=== PATIENT | female | born 1940 | race Caucasian/White ===

== ENCOUNTER 2023-03-26 14:52 | Outpatient (OUT) | payer MEDICARE, OTHER, SELFPAY ==
[2023-03-26 15:36] LABS: Basophils Percent Auto 0.8 % (0.2-2.0); Eosinophils Absolute Auto 0.4 10^3/uL (0.0-0.7); Eosinophils Percent Auto 7.5 % (0.9-7.0); Hematocrit 39.7 % (36.0-48.0); Hemoglobin 12.5 g/dL (12.0-16.0); Immature Granulocytes Abs Auto 0.01 10^3/uL (0.00-0.03); Immature Granulocytes Pct Auto 0.2 % (0.0-0.5); Lymphocytes Absolute Auto 1.7 10^3/uL (1.2-3.8); Lymphocytes Percent Auto 34.4 % (20.5-60.0); Mean Corpuscular HGB Conc 31.5 g/dL (29.9-35.2); Mean Corpuscular Hemoglobin 29.8 pg (26.7-34.0); Mean Corpuscular Volume 94.5 fL (81.0-99.0); Mean Platelet Volume 9.8 fL (9.5-13.5); Monocytes Absolute Auto 0.5 10^3/uL (0.3-0.8); Monocytes Percent Auto 10.5 % (1.7-12.0); Neutrophils Absolute Auto 2.3 10^3/uL (1.4-6.5); Neutrophils Percent Auto 46.6 % (43.0-75.0); Platelet Count 251 10^3/uL (150-450); Red Cell Distribution Width 15.7 % (11.0-15.0); White Blood Count 4.9 10^3/uL (4.0-11.0)
[2023-03-26 15:59] LABS: Alanine Aminotransferase 25 U/L (14-59); Albumin Globulin Ratio 0.8; Albumin Level 3.1 g/dL (3.4-5.0); Alkaline Phosphatase 101 U/L (46-116); Aspartate Amino Transferase 30 U/L (15-37); BUN Creatinine Ratio 25.8; Bilirubin Total 0.4 mg/dL (0.2-1.0); Calcium 8.4 mg/dL (8.5-10.1); Carbon Dioxide 20.3 mmol/L (21.0-32.0); Chloride 107 mmol/L (98-107); Estimated GFR (African America >60 (>=60); Estimated GFR (Non-African Ame >60 (>=60); Globulin 3.7 g/dL; Glucose 101 mg/dL (74-106); Potassium 4.3 mmol/L (3.5-5.1); Sodium 137 mmol/L (136-145); Total Protein 6.8 g/dL (6.4-8.2)
[2023-03-26 16:08] LABS: Thyroid Stimulating Hormone 5.456 uIU/mL (0.358-3.740)
== END 2023-03-26 14:53 | disposition home or self-care (01) ==
LOC: LAB 14:58
PROVIDERS: PCP Family Medicine; Visit Provider Family Medicine
DX: E87.6 Hypokalemia (principal); R73.09 Other abnormal glucose
CPT/HCPCS: 36415; 80053; 84443; 85025

== ENCOUNTER 2023-08-13 12:14 | Outpatient (OUT) | payer MEDICARE, OTHER, SELFPAY ==
[2023-08-13 12:40] LABS: Estimated GFR (African America >60 (>=60); Estimated GFR (Non-African Ame >60 (>=60)
== END 2023-08-13 12:15 | disposition home or self-care (01) ==
LOC: LAB 12:14
PROVIDERS: PCP Family Medicine; Visit Provider Otolaryngology
DX: H90.3 Sensorineural hearing loss, bilateral (principal); H93.12 Tinnitus, left ear; H92.02 Otalgia, left ear
CPT/HCPCS: 36415; 82565

== ENCOUNTER 2023-08-31 12:48 | Outpatient (OUT) | payer MEDICARE, OTHER, SELFPAY ==
--- NOTE | 2023-08-31 13:40 | CT_ITS ---
The [address] [address] Patient Name: CECELIA VILLALPANDO MRN: [id number] date: 1940 Sex: F Assigned Patient Location: CT Current Patient Location: Accession/Order Number: [id number] Exam Date: 08/31/2023 13:10 Report Date: 09/02/2023 10:24 At the request of: NICHOLAS HAYES Procedure: CT int auditory canals w con EXAM: CT int auditory canals w con HISTORY: Hearing loss COMPARISON: None. TECHNIQUE: Axial postcontrast CT imaging of the temporal bones was performed with multiplanar reformats. This CT exam was performed using one or more of the following dose reduction techniques: Automated exposure control, adjustment of the MA and/or kV according to patient size, or use of iterative reconstruction technique. FINDINGS: RIGHT SIDE There is a narrowing of soft tissue along the medial aspect of the cartilaginous external auditory canal without interval external auditory canal narrowing. Mastoid air cells are normally aerated. Tympanic membrane has normal appearance. Middle ear cavity is normally aerated. Ossicles appear normal. No bony erosion. No evidence for otosclerosis. Internal auditory canal, cochlea, vestibule, semicircular canals, vestibular and cochlear aqueducts appear normal. Normal appearance of the petrous course of the facial nerve. No evidence of aberrant carotid or jugular dehiscence. LEFT SIDE External auditory canal is clear. Mastoid air cells are normally aerated. Tympanic membrane has normal appearance. Middle ear cavity is normally aerated. Ossicles appear normal. No bony erosion. Noted sclerosis. Internal auditory canal, cochlea, vestibule, semicircular canals, vestibular and cochlear aqueducts appear normal. Normal appearance of the petrous course of the facial nerve. No evidence of aberrant carotid or jugular dehiscence. Additional comments: No substantial soft tissue abnormality visible involving the periauricular soft tissues or visualized portions of the parotid glands. Mild intracranial atherosclerosis. Visualized portions of the intracranial structures are unremarkable. Mild frothy material is present involving the left greater than right maxillary sinus with diffuse mild right maxillary sinus mucosal thickening. Partial opacification of the hypoplastic right sphenoid sinus secondary to frothy secretions. CT/CT int auditory canals w con IMPRESSION: 1. Minimal narrowing of the right external auditory canal secondary to thin web of soft tissue along the cartilaginous external auditory canal medially. There is otherwise grossly unremarkable CT appearance of the bilateral temporal bones. 2. No substantial soft tissue abnormality is seen involving the periauricular soft tissues or visualized portions of the parotid glands. 3. Paranasal sinus disease detailed above. Electronically authenticated by: ADWOA ARMSTRONG Date: 09/02/2023 10:24
== END 2023-08-31 12:49 | disposition home or self-care (01) ==
LOC: CT 12:48
PROVIDERS: PCP Family Medicine; Visit Provider Otolaryngology
DX: H90.3 Sensorineural hearing loss, bilateral (principal)
CPT/HCPCS: 70481; Q9967

== ENCOUNTER 2023-09-22 16:06 | Emergency (ER) | payer MEDICARE, OTHER, SELFPAY ==
[2023-09-22 16:10] VITALS: BP 132/50; PULSE 56; RESP 24; TEMP 36.9; BMI 16.8
[2023-09-22 16:26] VITALS: O2SAT 98
--- NOTE | 2023-09-22 16:30 | XR_ITS ---
The [address] [address] Patient Name: CECELIA VILLALPANDO MRN: [id number] date: 1940 Sex: F Assigned Patient Location: ER Current Patient Location: ER Accession/Order Number: [id number] Exam Date: 09/22/2023 17:00 Report Date: 09/22/2023 17:27 At the request of: MARSHALL ROACH Procedure: XR chest 1V CXR HISTORY: Shortness of breath. COMPARISON: None. TECHNIQUE: 1 view of the chest submitted for review. FINDINGS: Lines and tubes: None Lungs are hyperaerated. No acute infiltrate. No effusion. The cardiac silhouette measures within normal. Pulmonary vascularity is unremarkable. Osseous structures are normal for age. XR/XR chest 1V IMPRESSION: No plain film evidence for acute cardiopulmonary disease. Electronically authenticated by: DAQUAN GUNN Date: 09/22/2023 17:27
--- NOTE | 2023-09-22 16:31 | ED.WEAKNESS1 ---
HPI - Weakness General Chief complaint: Weakness Stated complaint: Weakness Time Seen by Provider: 09/22/23 16:14 Source: patient Mode of arrival: ambulance Limitations: no limitations History of Present Illness HPI Narrative: Patient is an 83-year-old female presents to the emergency department for the evaluation of not feeling well for the last 3 days, she reports ear pain, headache and lack of appetite. She denies chest pain, shortness of breath. She states she has been able to take fluids without difficulty, no vomiting or diarrhea. She reports mild nausea associated with a lack of appetite. No drainage from the ears. She denies nasal congestion or coughing. No medications taken prior to arrival. She arrives from independent living attached to a local residential. She states she has been able to get up and move around without difficulty, she is very hard of hearing. Related Data Previous Rx's Medication Instructions Recorded cephalexin 500 mg capsule 500 mg PO Q8H 10 days #30 caps 09/22/23 ondansetron 4 mg disintegrating 4 mg PO Q6H PRN nausea and 09/22/23 tablet vomiting #12 tabs Allergies Allergy/AdvReac Type Severity Reaction Status Date / Time psyllium [From Metamucil] Allergy Severe Hives Verified 09/22/23 16:18 Review of Systems ROS Constitutional Denies: fever or chills Ears, nose, mouth, and throat Reports: ear pain; Denies: throat pain or nasal congestion Cardiovascular Denies: chest pain Respiratory Denies: shortness of breath or cough Gastrointestinal Reports: nausea; Denies: vomiting or diarrhea Genitourinary Denies: painful urination Musculoskeletal Denies: back pain Integumentary/Breast Denies: rash Neurological Reports: headache Endocrine Denies: excessive urination PFSH PFSH Social History Smoking status: Never smoker Exam Narrative Exam Narrative: Gen.: Awake, alert, in no distress Head: Normocephalic, atraumatic ENT: Moist mucous membranes, left TM is erythematous with a left external canal erythematous Respiratory: No respiratory distress, lungs clear bilaterally Cardio: Regular rate and rhythm Extremities: Moves extremities equally Psych: Normal mood and affect Neuro: No focal neuro deficit Skin: Warm, dry, intact Constitutional Vital Signs, click to edit/add: Last Vital Signs Temp 98.4 F 09/22/23 16:10 Pulse 56 L 09/22/23 16:10 Resp 24 09/22/23 16:10 BP 132/50 09/22/23 16:10 Pulse Ox 98 09/22/23 16:26 Course Vital Signs Vital signs: Vital Signs Temperature 98.4 F 09/22/23 16:10 Pulse Rate 56 L 09/22/23 16:10 Respiratory Rate 24 09/22/23 16:10 Blood Pressure 132/50 09/22/23 16:10 Temperature 98.4 F 09/22/23 16:10 Pulse Rate 56 L 09/22/23 16:10 Respiratory Rate 24 09/22/23 16:10 Blood Pressure 132/50 09/22/23 16:10 Pulse Oximetry 98 09/22/23 16:26 MDM - Weakness MDM Narrative Medical decision making narrative: Patient found to have left otitis media on exam, her vital signs are otherwise stable and she has no other focal medical complaints. I asked the patient if she had any chest pain, shortness of breath, dizziness, lightheadedness, falls or difficulty ambulating multiple times, she denied these. On arrival of her family to the emergency department, they stated that they called 911 for the patient because on arrival to her home, she was unable to stand. Patient's lab studies show she is mildly dehydrated, we were unable to start an IV after multiple sticks so the patient was encouraged to improve her oral hydration at home. She requested a meal tray in the ER, she was able to ambulate at the bedside after being reevaluated by attending physician. She started on antibiotics for otitis media, follow-up with PCP and return to the ER if symptoms change or worsen. Medical Records Attestation: I reviewed the patient's medical records. Lab Data Attestation: I reviewed the patient's lab results. Labs: Lab Results 09/22/23 09/22/23 Range/Units 16:36 16:48 WBC 7.7 (4.0-11.0) 10^3/uL RBC 3.42 L (4.20-5.40) 10^6/uL Hgb 10.4 L (12.0-16.0) g/dL Hct 32.5 L (36.0-48.0) % MCV 95.0 (81.0-99.0) fL MCH 30.4 (26.7-34.0) pg MCHC 32.0 (29.9-35.2) g/dL RDW 13.9 (11.0-15.0) % Plt Count 221 (150-450) 10^3/uL MPV 10.0 (9.5-13.5) fL Neut % (Auto) 65.3 (43.0-75.0) % Lymph % (Auto) 23.3 (20.5-60.0) % [place] % (Auto) 9.2 (1.7-12.0) % Eos % (Auto) 1.4 (0.9-7.0) % Baso % (Auto) 0.5 (0.2-2.0) % Neut # (Auto) 5.0 (1.4-6.5) 10^3/uL Lymph # (Auto) 1.8 (1.2-3.8) 10^3/uL [place] # (Auto) 0.7 (0.3-0.8) 10^3/uL Eos # (Auto) 0.1 (0.0-0.7) 10^3/uL Baso # (Auto) 0.0 (0.0-0.1) 10^3/uL Abs Immat Gran (auto) 0.02 (0.00-0.03) 10^3/uL Imm/Tot Granulo (auto) 0.3 (0.0-0.5) % Sodium 132 L (136-145) mmol/L Potassium 4.0 (3.5-5.1) mmol/L Chloride 102 (98-107) mmol/L Carbon Dioxide 19.4 L (21.0-32.0) mmol/L Anion Gap 14.6 BUN 22.0 H (7.0-18.0) mg/dL Creatinine 0.89 (0.55-1.02) mg/dL Est GFR ( Amer) >60 (>=60) Est GFR (Non-Af Amer) >60 (>=60) BUN/Creatinine Ratio 24.7 Glucose 94 (74-106) mg/dL Calcium 8.8 (8.5-10.1) mg/dL Total Bilirubin 0.7 (0.2-1.0) mg/dL AST 14 L (15-37) U/L ALT 15 (14-59) U/L Alkaline Phosphatase 90 (46-116) U/L Total Protein 6.1 L (6.4-8.2) g/dL Albumin 2.7 L (3.4-5.0) g/dL Globulin 3.4 g/dL Albumin/Globulin Ratio 0.8 SARS-CoV-2 (PCR) Negative (NEGATIVE) Influenza Type A Ag Negative Influenza Type B Ag Negative SARS-CoV-2 RNA (JEANE) Not detected (NOT DETECTE) Imaging Data Chest x-ray: Attestation: I have reviewed the pertinent imaging results. Discharge Plan Discharge Chief Complaint: Weakness Clinical Impression: Acute left otitis media Patient Disposition: Home, Self-Care Time of Disposition Decision: 17:44 Condition: Good Mode of Transportation: Private Vehicle Prescriptions / Home Meds: New cephalexin 500 mg capsule 500 mg PO Q8H 10 Days Qty: 30 0RF ondansetron 4 mg tablet,disintegrating 4 mg PO Q6H PRN (Reason: nausea and vomiting) Qty: 12 0RF Instructions: Ear Infection (ED) Stand Alone Forms: Portal Instructions Referrals: Effie Jackman MD [Primary Care Provider] - 1 week Discharge Date/Time: 09/22/23 18:00
[2023-09-22 16:59] LABS: Basophils Percent Auto 0.5 % (0.2-2.0); Eosinophils Absolute Auto 0.1 10^3/uL (0.0-0.7); Eosinophils Percent Auto 1.4 % (0.9-7.0); Hematocrit 32.5 % (36.0-48.0); Hemoglobin 10.4 g/dL (12.0-16.0); Immature Granulocytes Abs Auto 0.02 10^3/uL (0.00-0.03); Immature Granulocytes Pct Auto 0.3 % (0.0-0.5); Lymphocytes Absolute Auto 1.8 10^3/uL (1.2-3.8); Lymphocytes Percent Auto 23.3 % (20.5-60.0); Mean Corpuscular Hemoglobin 30.4 pg (26.7-34.0); Monocytes Absolute Auto 0.7 10^3/uL (0.3-0.8); Monocytes Percent Auto 9.2 % (1.7-12.0); Neutrophils Percent Auto 65.3 % (43.0-75.0); Platelet Count 221 10^3/uL (150-450); Red Blood Count 3.42 10^6/uL (4.20-5.40); Red Cell Distribution Width 13.9 % (11.0-15.0); White Blood Count 7.7 10^3/uL (4.0-11.0)
[2023-09-22] MEDS: ONDANSETRON 4 MG RAPDIS TABLET SL (17:02)
[2023-09-22] MEDS: ACETAMINOPHEN 325 MG TABLET 650 MG PO (17:02)
[2023-09-22 17:12] LABS: Alanine Aminotransferase 15 U/L (14-59); Albumin Globulin Ratio 0.8; Albumin Level 2.7 g/dL (3.4-5.0); Alkaline Phosphatase 90 U/L (46-116); Anion Gap 14.6; Aspartate Amino Transferase 14 U/L (15-37); BUN Creatinine Ratio 24.7; Bilirubin Total 0.7 mg/dL (0.2-1.0); Calcium 8.8 mg/dL (8.5-10.1); Carbon Dioxide 19.4 mmol/L (21.0-32.0); Chloride 102 mmol/L (98-107); Estimated GFR (African America >60 (>=60); Estimated GFR (Non-African Ame >60 (>=60); Globulin 3.4 g/dL; Glucose 94 mg/dL (74-106); Sodium 132 mmol/L (136-145); Total Protein 6.1 g/dL (6.4-8.2)
--- NOTE | 2023-09-22 17:26 | PC.NURSE ---
MEAL TRAY ORDERED FOR PT AT THIS TIME.,
[2023-09-22 17:28] LABS: Influenza Virus A Antigen Negative; Influenza Virus B Antigen Negative; Internal Control Within Normal Limits; SARS-CoV-2 Ag NEGATIVE (NEGATIVE)
[2023-09-23 10:20] LABS: SARS-CoV-2 NAA NOT DETECTED (NOT DETECTE)
== END 2023-09-22 18:00 | disposition home or self-care (01) ==
PROVIDERS: Physician Assistant; Emergency Provider Emergency Medicine; PCP Family Medicine
DX: H66.92 Otitis media, unspecified, left ear (principal); R53.1 Weakness; R51.9 Headache, unspecified; E86.0 Dehydration
CPT/HCPCS: 36415; 71045; 80053; 85025; 87635; 87804; 87811; 99285

== ENCOUNTER 2023-10-23 13:30 | Outpatient (OUT) | payer MEDICARE, OTHER, SELFPAY ==
--- OUTSIDE RECORDS SUMMARY | 2023-10-23 13:34 | XMS_ITS | CCD ---
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 Name Role Phone PHYSICIAN, DEFAULT Unavailable Unavailable PHYSICIAN, DEFAULT Unavailable Unavailable DANIELLE COFFMAN Unavailable Unavailable JACK PINA Unavailable Unavailable NONSTAFF, [facility] Unavailable Unavailable Jack Sanches DEVELOPMENT EXECUTIVE-C Admitting UnavailJack Pandey DEVELOPMENT EXECUTIVE-C Attending Unavaila Jani Obando Primary Care Unavailable JOSH, DR DARBY Primary Care Unavailable SHAIKH Joshua MARTINEZ Admitting Unavailable SHAIKH Joshua MARTINEZ Attending Unavailable CHARLIE, DR ELEAZAR Gr Consulting Unavailable YOLANDA Decker, ESME Consulting Unavailable SHAIKH Joshua MARTINEZ Consulting Unavailable BRINA HENRY Consulting Unavailable JOSH, DR DARBY Admitting Unavailable JOSH, DR DARBY Attending Unavailable JOSH, DR DARBY Primary Care Unavailable JOSH, DR DARBY Consulting Unavailable MATI ATKINS Consulting Unavailable JOSH, DR DARBY Primary Care Unavailable PAY ., DR BAEZA Consulting Unavailable PAY ., DR BAEZA Admitting Unavailable PAY ., DR BAEZA Attending Unavailable KAROL VARELA Consulting Unavailable JOSH, DR DARBY Primary Care Unavailable MANUEL ., DR NIETO Consulting Unavailable JOEY ., DR NIETO Admitting Unavailable HOY ., DR NIETO Attending Unavailable CHARLIE, DR ELEAZAR Gr Consulting Unavailable DOC ., LELIA OLIVARES Consulting Unavailajay GUERRERO ., ESME Consulting Unavailable TRINI CISNEROS Consulting Unavailable SIVA CROSS Consulting Unavailable MALIK CROSS Consulting Unavailable TEJAS SIDDIQUI Consulting Unavailable Effie Jackman Unavailable MICHAELA RICHARDSON Attending Unavailable NICHOLAS HAYES Attending Unavailable Allergies Allergy Classification Reported Allergen(s) Allergy Type Date of Onset Reaction(s) Facility (2 sources) levoFLOXacin; Translations: [LEVOFLOXACIN] Drug Allergy 08-07-2017 [facility] (2 sources) psyllium; Translations: [PSYLLIUM] Drug Allergy 08-07-2017 [facility] (10 sources) levoFLOXacin Drug Allergy 02-05-2016 hives [facility] (1 source) Penicillin Drug Allergy [facility] (10 sources) Psyllium Drug Allergy 03-03-2013 anaphylaxis [facility] Medications Current Medications Medication Drug Class(es) Dates Sig (Normalized) Sig (Original) Acetaminophen (9 sources) Acetaminophen Active Albuterol (9 sources) beta2-Adrenergic Agonist Albuterol Sulfate HFA Active amylase 30581 unt / lipase 3000 unt / protease 9500 unt delayed release oral capsule (9 sources) take 1829-7774 [IU] by mouth three times daily at mealtime Creon 7581-1212 UNIT as directed Orally tid w meals for 30 days Active 30 actuat fluticasone furoate 0.1 mg/actuat / vilanterol 0.025 mg/actuat dry powder inhaler (9 sources) Corticosteroid, beta2-Adrenergic Agonist Start: 03-27-2023 take 1 puff(s) by inhalation once daily Breo Ellipta 100-25 MCG/ACT 1 puff Inhalation Once a day for 30 days Feb, Active pantoprazole 40 mg delayed release oral tablet (3 sources) Proton Pump Inhibitor take 1 tablet by mouth every twenty-four hours Pantoprazole Sodium 40 MG 1 tablet Orally Once a day Active rOPINIRole 0.25 mg oral tablet (6 sources) Nonergot Dopamine Agonist take 1 tablet by mouth once daily at bedtime rOPINIRole HCl 0.25 MG 1 tablet 1 to 3 hours before bedtime Orally Once a day for 30 days Active Problems Active Problems Problem Classification Problem Date Documented Da te Episodic/Chronic Abdominal hernia (9 sources) Hiatal hernia; Translations: [Diaphragmatic hernia without obstruction or gangrene] Episodic Abdominal pain (18 sources) Epigastric pain; Translations: [Epigastric pain] Episodic Asthma (20 sources) Unspecified asthma with (acute) exacerbation; Translations: [Exacerbation of asthma] Onset: 02-18-2022 Chronic Attention-deficit, conduct, and disruptive behavior disorders (3 sources) Other symptoms and signs involving appearance and behavior Episodic Blindness and vision defects (1 source) Unspecified visual loss; Translations: [UNSPECIFIED VISUAL LOSS] Onset: 12-31-2022 Chronic Cardiac dysrhythmias (1 source) Unspecified atrial fibrillation; Translations: [UNSPECIFIED ATRIAL FIBRILLATION] Onset: 12-31-2022 Chronic Chronic obstructive pulmonary disease and bronchiectasis (5 sources) Chronic obstructive pulmonary disease with (acute) exacerbation; Translations: [Chronic obstructive pulmonary disease with (acute) lower respiratory infection] Onset: 12-29-2022 Chronic Complications of surgical procedures or medical care (1 source) Postgastric surgery syndromes; Translations: [POSTGASTRIC SURGERY SYNDROMES] Onset: 12-31-2022 Episodic Congestive heart failure; nonhypertensive (1 source) Heart failure, unspecified; Translations: [HEART FAILURE UNSPECIFIED] Onset: 12-29-2022 Chronic Delirium, dementia, and amnestic and other cognitive disorders (2 sources) Unspecified dementia without behavioral disturbance; Translations: [UNSP DARELL UNS SEV W/O DSTRB ANXTY] Onset: 02-18-2022 Chronic Esophageal disorders (1 source) Gastro-esophageal reflux disease without esophagitis; Translations: [GERD WITHOUT ESOPHAGITIS] Onset: 12-31-2022 Chronic Fluid and electrolyte disorders (3 sources) Dehydration; Translations: [Hypokalemia] Onset: 02-18-2022 Episodic Gastritis and duodenitis (9 sources) Gastritis; Translations: [Gastritis, unspecified, without bleeding] Episodic Malaise and fatigue (1 source) Weakness; Translations: [WEAKNESS] Onset: 12-31-2022 Episodic Menopausal disorders (4 sources) Other primary ovarian failure; Translations: [OTHER PRIMARY OVARIAN FAILURE] Onset: 07-10-2022 Chronic Nausea and vomiting (9 sources) Nausea; Translations: [Nausea] Episodic Noninfectious gastroenteritis (1 source) Noninfective gastroenteritis and colitis, unspecified Episodic Nutritional deficiencies (1 source) Moderate protein-calorie malnutrition; Translations: [MODERATE PROTEIN-CALORIE MLNUTRIT] Onset: 12-31-2022 Chronic Osteoarthritis (1 source) Unspecified osteoarthritis, unspecified site; Translations: [UNSPECIFIED OSTEOARTHRITIS UNS SITE] Onset: 12-31-2022 Chronic Osteoporosis (1 source) Age-related osteoporosis without current pathological fracture; Translations: [AGE-REL OSTEOPOR W/O CURR PATH FX] Onset: 12-31-2022 Chronic Other aftercare (1 source) 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; Translations: [OTH 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 PLANT OPERATOR CURRENT DRUG THERAPY] Onset: 12-31-2022 Episodic Other connective tissue disease (9 sources) Myofascial pain; Translations: [Myalgia] Episodic Other ear and sense organ disorders (8 sources) Bilateral hearing loss; Translations: [Unspecified hearing loss, bilateral] Chronic Other gastrointestinal disorders (9 sources) Diarrhea; Translations: [Diarrhea, unspecified] Episodic Other hereditary and degenerative nervous system conditions (6 sources) Restless legs; Translations: [Restless legs syndrome] Chronic Other hereditary and degenerative nervous system conditions (1 source) Restless legs syndrome Chronic Other lower respiratory disease (9 sources) Dyspnea; Translations: [Shortness of breath] Episodic Other nervous system disorders (9 sources) Chronic pain; Translations: [Other chronic pain] Chronic Other nervous system disorders (1 source) Unsteadiness on feet; Translations: [UNSTEADINESS ON FEET] Onset: 12-31-2022 Episodic Other nervous system disorders (2 sources) Other symptoms and signs involving cognitive functions and awareness Episodic Other nutritional; endocrine; and metabolic disorders (1 source) Body mass index (BMI) 19.9 or less, adult; Translations: [BODY MASS INDEX 19.9 OR LESS ADULT] Onset: 12-31-2022 Episodic Other nutritional; endocrine; and metabolic disorders (2 sources) Abnormal weight loss Episodic Pneumonia (except that caused by tuberculosis or sexually transmitted disease) (3 sources) Pneumonia, unspecified organism; Translations: [PNEUMONIA UNSPECIFIED ORGANISM] Onset: 12-22-2022 Episodic Residual codes; unclassified (1 source) Sleep disorder, unspecified; Translations: [SLEEP DISORDER UNSPECIFIED] Onset: 12-31-2022 Episodic Spondylosis; intervertebral disc disorders; other back problems (9 sources) Thoracic back pain; Translations: [Pain in thoracic spine] Episodic Substance-related disorders (9 sources) Continuous opioid dependence; Translations: [Opioid use, unspecified, uncomplicated] Episodic Unclassified (1 source) Unspecified fracture of upper end of right humerus, initial encounter for closed fracture / S42.201A(ICD-10) Onset: 08-21-2017 Unclassified (1 source) Unknown / UNK(Unknown) Onset: 08-21-2017 Unclassified (1 source) Fall / 10590() Onset: 08-21-2017 Unclassified (1 source) Arm Injury / 58501() Onset: 08-21-2017 Unclassified (1 source) R06.02 - Shortness of breath; Translations: [R06.02 - Shortness of breath] Onset: 01-15-2019 Unclassified (1 source) CONTACT W/AND (SUSP) EXPOS COVID-19; Translations: [CONTACT W/AND (SUSP) EXPOS COVID-19] Onset: 12-31-2022 Urinary tract infections (1 source) Urinary tract infection, site not specified; Translations: [UTI SITE NOT SPECIFIED] Onset: 12-31-2022 Episodic Past or Other Problems Problem Classification Problem Date Documented Da te Episodic/Chronic Administrative/social admission (1 source) Encounter for issue of repeat prescription; Translations: [ENC FOR ISSUE REPEAT PRESCRIPTION] Onset: 02-18-2022 Episodic External Injury - Fall (1 source) Fall; Translations: [Fall] Onset: 08-21-2017 Other bone disease and musculoskeletal deformities (1 source) Other specified disorders of bone density and structure, other site; Translations: [OTH D/O BONE DEN STRUCT OTH SITE] Onset: 07-12-2022 Episodic Other lower respiratory disease (3 sources) Shortness of breath; Translations: [SHORTNESS OF BREATH] Onset: 02-14-2022 Episodic Other lower respiratory disease (1 source) Dyspnea, unspecified; Translations: [DYSPNEA UNSPECIFIED] Onset: 02-18-2022 Episodic Unclassified (1 source) Unspecified fracture of upper end of right humerus, initial encounter for closed fracture; Translations: [Unspecified fracture of upper end of right humerus, initial encounter for closed fracture] Onset: 08-21-2017 Unclassified (1 source) fall, arm injury Onset: 08-21-2017 Unclassified (1 source) Arm Injury; Translations: [Arm Injury] Onset: 08-21-2017 Results Test Name Value Interpretation Reference Range Facility CULTURE URINEon 01-02-2023 CULTURE URINE Isolate 1 Enterococcus faecalis 100,000 cfu/mL of ORGANISM 1 Enterococcus faecalis ANTIBIOTIC M.I.C RX STATUS Beta-Lactamase Neg NEG F Benzylpenicillin 1 S F Ampicillin <=2 S F Gentamicin High Level (synergy) SYN-S S F Streptomycin High Level (synergy) SYN-S S F Ciprofloxacin <=0.5 S F Levofloxacin 0.5 S F Quinupristin/Dalfopris tin 8 R F Linezolid 1 S F Vancomycin 1 S F Tetracycline >=16 R F Nitrofurantoin <=16 S F Normal [facility] Comment on above: Performed By: #### C BC #### [facility] [address] [place] [address] Dr. Con Santana BNPon 01-01-2023 Natriuretic peptide B (Bld) [Mass/Vol] 6147.0 pg/mL Critically high <=1,800.0 [facility] Comment on above: Performed By: #### H STROPN #### [facility] [address] [place] [address] Dr. Con Santana CBC AUTO DIFFon 01-01-2023 BASO # 0.0 103/ul Normal 0.0-0.1 [facility] Comment on above: Performed By: #### C BC #### [facility] [address] [place] [address] Dr. Con Santana Basophils/100 WBC (Bld) 0.2 % Normal 0.2-2.0 [facility] Comment on above: Performed By: #### C BC #### [facility] [address] [place] [address] Dr. Con Santana EO # 0.0 103/ul Normal 0.0-0.7 [facility] Comment on above: Performed By: #### C BC #### [facility] [address] [place] [address] Dr. Con Santana Eosinophils/100 WBC (Bld) 0.0 % Critically low 0.9-7.0 [facility] Comment on above: Performed By: #### C BC #### [facility] [address] [place] [address] Dr. Con Santana Erythrocyte distribution width (RBC) [Ratio] 14.4 % Normal 11.0-15.0 [facility] Comment on above: Performed By: #### C BC #### [facility] [address] [place] [address] Dr. Con Santana Hematocrit (Bld) [Volume fraction] 28.5 % Critically low 36.0-48.0 [facility] Comment on above: Performed By: #### C BC #### [facility] [address] [address] [address] Con Santana Hemoglobin (Bld) [Mass/Vol] 9.1 g/dL Critically low 12.0-16.0 [facility] Comment on above: Performed By: #### C BC #### [facility] [address] [address] [address] Con Santana IG # 0.14 10e3/ul Critically high 0.00-0.03 [facility] Comment on above: Performed By: #### C BC #### [facility] [address] [address] [address] Con Santana IG % 1.1 % Critically high 0.0-0.5 [facility] Comment on above: Performed By: #### C BC #### [facility] [address] [address] [address] Con Santana LYMPH # 0.9 103/ul Critically low 1.2-3.8 [facility] Comment on above: Performed By: #### C BC #### [facility] [address] [address] [address] Con Santana Lymphocytes/100 WBC (Bld) 7.3 % Critically low 20.5-60.0 [facility] Comment on above: Performed By: #### C BC #### [facility] [address] [address] [address] Con Santana MANUAL DIFF REQ NO Normal [facility] Comment on above: Performed By: #### C BC #### [facility] [address] [address] [address] Con Santana MCH (RBC) [Entitic mass] 31.1 pg Normal 26.7-34.0 [facility] Comment on above: Performed By: #### C BC #### [facility] [address] [address] [address] Con Santana MCHC (RBC) [Mass/Vol] 31.9 g/dL Normal 29.9-35.2 [facility] Comment on above: Performed By: #### C BC #### [facility] [id number] Con Santana MCV (RBC) [Entitic vol] 97.3 fL Normal 81.0-99.0 [facility] Comment on above: Performed By: #### C BC #### [facility] [address] [address] [address] Con Santana MONO # 1.3 103/ul Critically high 0.3-0.8 [facility] Comment on above: Performed By: #### C BC #### [facility] [address] [address] [address] Con Santana Monocytes/100 WBC (Bld) 10.0 % Normal 1.7-12.0 [facility] Comment on above: Performed By: #### C BC #### [facility] [address] [address] [address] Con Santana NEUT # 10.5 103/ul Critically high 1.4-6.5 [facility] Comment on above: Performed By: #### C BC #### [facility] [address] [address] [address] Con Santana Neutrophils/100 WBC (Bld) 81.4 % Critically high 43.0-75.0 [facility] Comment on above: Performed By: #### C BC #### [facility] [address] [address] [address] Con Santana Platelet mean volume (Bld) [Entitic vol] 10.5 fL Normal 9.5-13.5 [facility] Comment on above: Performed By: #### C BC #### [facility] [address] [address] [address] Con Santana PLT 179 103/ul Normal 150-450 [facility] Comment on above: Performed By: #### C BC #### [facility] [id number] Con Santana RBC 2.93 106/ul Critically low 4.20-5.40 [facility] Comment on above: Performed By: #### C BC #### [facility] [address] [address] [address] Con Santana WBC 12.8 103/ul Critically high 4.0-11.0 [facility] Comment on above: Performed By: #### C BC #### [facility] [address] [address] [address] Con Santana POINT OF CARE GLUCOSEon 04 Glucose [Mass/Vol] 97 mg/dL Normal 74-106 [facility] Comment on above: Performed By: #### C BC #### [facility] [address] [address] [address] Con Santana PROF CHEM 8 (BAS METB)on Anion gap [Moles/Vol] 14.3 mmol/L Normal [facility] Comment on above: Performed By: #### H STROPN #### [facility] [address] [place] [address] Dr. Con Santana Calcium [Mass/Vol] 7.2 mg/dL Critically low 8.5-10.1 [facility] Comment on above: Performed By: #### H STROPN #### [facility] [address] [place] [address] Dr. Con Santana Chloride [Moles/Vol] 108 mmol/L Critically high 98-107 [facility] Comment on above: Performed By: #### H STROPN #### [facility] [address] [address] [address] Con Santana CO2 [Moles/Vol] 22.6 mmol/L Normal 21.0-32.0 [facility] Comment on above: Performed By: #### H STROPN #### [facility] [address] [address] [address] Con Santana Creatinine [Mass/Vol] 1.08 mg/dL Critically high 0.55-1.02 [facility] Comment on above: Performed By: #### H STROPN #### [facility] [address] [place] [address] Dr. Con Santana EGFR-AF BOTSWANAN 59 mL/min/1.73m2 Critically low >=60 [facility] Comment on above: Performed By: #### H STROPN #### [facility] [address] [address] [address] Con Santana EGFR-NON AF BOTSWANAN 48 mL/min/1.73m2 Critically low >=60 [facility] Comment on above: Performed By: #### H STROPN #### [facility] [address] [address] [address] Con Santana Glucose [Mass/Vol] 100 mg/dL Normal 74-106 [facility] Comment on above: Performed By: #### H STROPN #### [facility] [address] [address] [address] Con Santana Potassium [Moles/Vol] 3.9 mmol/L Normal 3.5-5.1 [facility] Comment on above: Performed By: #### H STROPN #### [facility] [address] [place] [address] Dr. Con Santana Sodium [Moles/Vol] 141 mmol/L Normal 136-145 [facility] Comment on above: Performed By: #### H STROPN #### [facility] [address] [place] [address] Dr. Con Santana Urea nitrogen [Mass/Vol] 27.0 mg/dL Critically high 7.0-18.0 [facility] Comment on above: Performed By: #### H STROPN #### [facility] [address] [place] [address] Dr. Con Santana Urea nitrogen/Creatinine [Mass ratio] 25.0 mg/mg Normal [facility] Comment on above: Performed By: #### H STROPN #### [facility] [address] [address] [address] Con Santana BNPon 12-31-2022 Natriuretic peptide B (Bld) [Mass/Vol] 7148.0 pg/mL Critically high <=1,800.0 [facility] Comment on above: Performed By: #### H STROPN #### [facility] [address] [place] [address] Dr. Con Santana CBC W MANUAL DIFFon 01-01-20 23 ATYPICAL LYMPH # Normal [facility] Comment on above: Performed By: #### P OCGLUC #### [facility] [address] [place] [address] Dr. Con Santana ATYPICAL LYMPH % Normal [facility] Comment on above: Performed By: #### P OCGLUC #### [facility] [address] [address] [address] Con Santana BAND # 0.0 103/ul Normal 0.0-0.3 [facility] Comment on above: Performed By: #### P OCGLUC #### [facility] [address] [place] [address] Dr. Con Santana BAND % 0 % Normal 0-5 [facility] Comment on above: Performed By: #### P OCGLUC #### [facility] [address] [place] [address] Dr. Con Santana BASOM # 0.00 103/ul Normal 0.00-0.10 [facility] Comment on above: Performed By: #### P OCGLUC #### [facility] [address] [place] [address] Dr. Con Santana BASOM % 0.0 % Critically low 0.2-2.0 [facility] Comment on above: Performed By: #### P OCGLUC #### [facility] [address] [place] [address] Dr. Con Santana BLAST # Normal [facility] Comment on above: Performed By: #### P OCGLUC #### [facility] [address] [place] [address] Dr. Con Santana BLAST % Normal [facility] Comment on above: Performed By: #### P OCGLUC #### [facility] [address] [place] [address] Dr. Con Santana CORRECTED WBC Normal 4.0-11.0 [facility] Comment on above: Performed By: #### P OCGLUC #### [facility] [address] [place] [address] Dr. Con Santana EOS # 0.00 103/ul Normal 0.00-0.70 [facility] Comment on above: Performed By: #### P OCGLUC #### [facility] [address] [address] [address] Con Santana EOS% 0.0 % Critically low 0.9-7.0 [facility] Comment on above: Performed By: #### P OCGLUC #### [facility] [address] [address] [address] Con Santana HCT 27.8 % Critically low 36.0-48.0 [facility] Comment on above: Performed By: #### P OCGLUC #### [facility] [address] [address] [address] Con Santana HGB 9.0 g/dl Critically low 12.0-16.0 [facility] Comment on above: Performed By: #### P OCGLUC #### [facility] [address] [address] [address] Con Santana LYMPHM # 0.53 103/ul Critically low 1.20-3.80 [facility] Comment on above: Performed By: #### P OCGLUC #### [facility] [address] [address] [address] Con Santana LYMPHM% 5.0 % Critically low 20.5-60.0 [facility] Comment on above: Performed By: #### P OCGLUC #### [facility] [address] [address] [address] Con Santana MCH 31.0 pg Normal 26.7-34.0 [facility] Comment on above: Performed By: #### P OCGLUC #### [facility] [address] [address] [address] Con Santana MCHC 32.4 g/dl Normal 29.9-35.2 [facility] Comment on above: Performed By: #### P OCGLUC #### [facility] [address] [address] [address] Con Santana MCV 95.9 fL Normal 81.0-99.0 [facility] Comment on above: Performed By: #### P OCGLUC #### [facility] [address] [address] [address] Con Santana METAMYELOCYTE # Normal [facility] Comment on above: Performed By: #### P OCGLUC #### [facility] [address] [address] [address] Con Santana METAMYELOCYTE % Normal [facility] Comment on above: Performed By: #### P OCGLUC #### [facility] [address] [address] [address] Con Santana MONOM# 0.11 103/ul Critically low 0.30-0.80 [facility] Comment on above: Performed By: #### P OCGLUC #### [facility] [address] [place] [address] Dr. Con Santana MONOM% 1.0 % Critically low 1.7-12.0 [facility] Comment on above: Performed By: #### P OCGLUC #### [facility] [address] [place] [address] Dr. Con Santana MPV 10.9 fL Normal 9.5-13.5 [facility] Comment on above: Performed By: #### P OCGLUC #### [facility] [address] [place] [address] Dr. Con Santana MYELOCYTE # Normal [facility] Comment on above: Performed By: #### P OCGLUC #### [facility] [address] [place] [address] Dr. Con Santana MYELOCYTE % Normal [facility] Comment on above: Performed By: #### P OCGLUC #### [facility] [address] [place] [address] Dr. Con Santana NRBC Normal [facility] Comment on above: Performed By: #### P OCGLUC #### [facility] [address] [place] [address] Dr. Con Santana PLT 184 103/ul Normal 150-450 [facility] Comment on above: Performed By: #### P OCGLUC #### [facility] [address] [place] [address] Dr. Con Santana RBC 2.90 106/ul Critically low 4.20-5.40 [facility] Comment on above: Performed By: #### P OCGLUC #### [facility] [address] [address] [address] Con Santana RDW 14.5 % Normal 11.0-15.0 [facility] Comment on above: Performed By: #### P OCGLUC #### [facility] [address] [address] [address] Con Santana SEG # 9.96 103/ul Critically high 1.40-6.50 [facility] Comment on above: Performed By: #### P OCGLUC #### [facility] [address] [address] [address] Con Santana SEG % 94.0 % Critically high 43.0-75.0 [facility] Comment on above: Performed By: #### P OCGLUC #### [facility] [address] [address] [address] Con Santana WBC 10.6 103/ul Normal 4.0-11.0 [facility] Comment on above: Performed By: #### P OCGLUC #### [facility] [address] [place] [address] Dr. Con Santana POINT OF CARE GLUCOSEon 04-0 Glucose [Mass/Vol] 145 mg/dL Critically high 74-106 [facility] Comment on above: Performed By: #### I NFLUAB #### [facility] [address] [place] [address] Dr. Con Snatana Glucose [Mass/Vol] 162 mg/dL Critically high 74-106 [facility] Comment on above: Performed By: #### LISA INTERIANO #### [facility] [address] [address] [address] Con Santana Glucose [Mass/Vol] 141 mg/dL Critically high 74-106 [facility] Comment on above: Performed By: #### C BC #### [facility] [address] [address] [address] Con Santana PROF CHEM 8 (BAS METB)on Anion gap [Moles/Vol] 16.5 mmol/L Normal [facility] Comment on above: Performed By: #### H STROPN #### [facility] [address] [address] [address] Con Santana Calcium [Mass/Vol] 7.3 mg/dL Critically low 8.5-10.1 Th [facility] Comment on above: Performed By: #### H STROPN #### [facility] [address] [address] [address] Con Santana Chloride [Moles/Vol] 108 mmol/L Critically high 98-107 [facility] Comment on above: Performed By: #### H STROPN #### [facility] [address] [address] [address] Con Santana CO2 [Moles/Vol] 18.5 mmol/L Critically low 21.0-32.0 [facility] Comment on above: Performed By: #### H STROPN #### [facility] [address] [address] [address] Con Santana Creatinine [Mass/Vol] 1.14 mg/dL Critically high 0.55-1.02 [facility] Comment on above: Performed By: #### H STROPN #### [facility] [address] [address] [address] Con Santana EGFR-AF BOTSWANAN 55 mL/min/1.73m2 Critically low >=60 [facility] Comment on above: Performed By: #### H STROPN #### [facility] [address] [address] [address] Con Santana EGFR-NON AF BOTSWANAN 45 mL/min/1.73m2 Critically low >=60 [facility] Comment on above: Performed By: #### H STROPN #### [facility] [address] [address] [address] Con Santana Glucose [Mass/Vol] 151 mg/dL Critically high 74-106 [facility] Comment on above: Performed By: #### H STROPN #### [facility] [address] [address] [address] Con Santana Potassium [Moles/Vol] 4.0 mmol/L Normal 3.5-5.1 [facility] Comment on above: Performed By: #### H STROPN #### [facility] [address] [address] [address] Con Santana Sodium [Moles/Vol] 139 mmol/L Normal 136-145 [facility] Comment on above: Performed By: #### H STROPN #### [facility] [address] [address] [address] Con Santana Urea nitrogen [Mass/Vol] 27.0 mg/dL Critically high 7.0-18.0 [facility] Comment on above: Performed By: #### H STROPN #### [facility] [address] [address] [address] Con Santana Urea nitrogen/Creatinine [Mass ratio] 23.7 mg/mg Normal [facility] Comment on above: Performed By: #### H STROPN #### [facility] [address] [address] [address] Con Santana XR CHEST 2 Von 12-31-2022 XR CHEST 2 V EXAMINATION: XR CHES T 2 V HISTORY: shortness of breath or wheezing , cough COMPARISON: XR chest 12/30/2022 FINDINGS: LUNGS: Hyperexpanded lungs. No appreciable infiltrates or mass. VASCULATURE: No increased pulmonary vasculature. PLEURA: No pneumothorax, effusion, or pleural thickening. CARDIAC: No cardiomegaly or cardiac silhouette abnormality. MEDIASTINUM: No visible mass or adenopathy. BONES: No fracture or visible bone lesion. OTHER: Negative. IMPRESSION: 1. Hyperexpanded lungs suggestive of COPD. 2. No appreciable acute cardiopulmonary process. Electronically authenticated by: ELEAZAR GUERRA Date: 2022-12-31 11:27 Normal [facility] BNPon 12-30-2022 Natriuretic peptide B (Bld) [Mass/Vol] 7840.0 pg/mL Critically high <=1,800.0 [facility] Comment on above: Performed By: #### I NFLUAB #### [facility] [address] [address] [address] Con Santana CBC AUTO DIFFon 12-30-2022 BASO # 0.0 103/ul Normal 0.0-0.1 [facility] Comment on above: Performed By: #### P OCGLUC #### [facility] [address] [address] [address] Con Santana Basophils/100 WBC (Bld) 0.2 % Normal 0.2-2.0 [facility] Comment on above: Performed By: #### P OCGLUC #### [facility] [address] [place] [address] Dr. Con Santana EO # 0.0 103/ul Normal 0.0-0.7 [facility] Comment on above: Performed By: #### P OCGLUC #### [facility] [address] [place] [address] Dr. Con Santana Eosinophils/100 WBC (Bld) 0.0 % Critically low 0.9-7.0 [facility] Comment on above: Performed By: #### P OCGLUC #### [facility] [address] [place] [address] Dr. Con Santana Erythrocyte distribution width (RBC) [Ratio] 13.6 % Normal 11.0-15.0 [facility] Comment on above: Performed By: #### P OCGLUC #### [facility] [address] [place] [address] Dr. Con Santana Hematocrit (Bld) [Volume fraction] 28.5 % Critically low 36.0-48.0 [facility] Comment on above: Performed By: #### P OCGLUC #### [facility] [address] [place] [address] Dr. Con Santana Hemoglobin (Bld) [Mass/Vol] 9.5 g/dL Critically low 12.0-16.0 [facility] Comment on above: Performed By: #### P OCGLUC #### [facility] [address] [place] [address] Dr. Con Santana IG # 0.09 10e3/ul Critically high 0.00-0.03 [facility] Comment on above: Performed By: #### P OCGLUC #### [facility] [address] [address] [address] Con Santana IG % 0.8 % Critically high 0.0-0.5 [facility] Comment on above: Performed By: #### P OCGLUC #### [facility] [address] [address] [address] Con Santana LYMPH # 0.8 103/ul Critically low 1.2-3.8 [facility] Comment on above: Performed By: #### P OCGLUC #### [facility] [address] [address] [address] Con Santana Lymphocytes/100 WBC (Bld) 6.9 % Critically low 20.5-60.0 [facility] Comment on above: Performed By: #### P OCGLUC #### [facility] [address] [address] [address] Con Santana MANUAL DIFF REQ NO Normal [facility] Comment on above: Performed By: #### P OCGLUC #### [facility] [address] [address] [address] Con Santana MCH (RBC) [Entitic mass] 31.3 pg Normal 26.7-34.0 [facility] Comment on above: Performed By: #### P OCGLUC #### [facility] [address] [address] [address] Con Santana MCHC (RBC) [Mass/Vol] 33.3 g/dL Normal 29.9-35.2 [facility] Comment on above: Performed By: #### P OCGLUC #### [facility] [address] [address] [address] Con Santana MCV (RBC) [Entitic vol] 93.8 fL Normal 81.0-99.0 [facility] Comment on above: Performed By: #### P OCGLUC #### [facility] [address] [address] [address] Con Santana MONO # 0.4 103/ul Normal 0.3-0.8 [facility] Comment on above: Performed By: #### P OCGLUC #### [facility] [address] [address] [address] Con Santana Monocytes/100 WBC (Bld) 3.1 % Normal 1.7-12.0 [facility] Comment on above: Performed By: #### P OCGLUC #### [facility] [address] [address] [address] Con Santana NEUT # 10.4 103/ul Critically high 1.4-6.5 [facility] Comment on above: Performed By: #### P OCGLUC #### [facility] [address] [address] [address] Con Santana Neutrophils/100 WBC (Bld) 89.0 % Critically high 43.0-75.0 [facility] Comment on above: Performed By: #### P OCGLUC #### [facility] [address] [address] [address] Con Santana Platelet mean volume (Bld) [Entitic vol] 10.8 fL Normal 9.5-13.5 [facility] Comment on above: Performed By: #### P OCGLUC #### [facility] [address] [address] [address] Con Santana PLT 189 103/ul Normal 150-450 [facility] Comment on above: Performed By: #### P OCGLUC #### [facility] [address] [address] [address] Con Santana RBC 3.04 106/ul Critically low 4.20-5.40 [facility] Comment on above: Performed By: #### P OCGLUC #### [facility] [address] [address] [address] Con Santana WBC 11.7 103/ul Critically high 4.0-11.0 [facility] Comment on above: Performed By: #### P OCGLUC #### [facility] [address] [address] [address] Con Santana POINT OF CARE GLUCOSEon 04-0 Glucose [Mass/Vol] 194 mg/dL Critically high 74-106 [facility] Comment on above: Performed By: #### C BC #### [facility] [address] [address] [address] Con Santana Glucose [Mass/Vol] 191 mg/dL Critically high 74-106 [facility] Comment on above: Performed By: #### I NFLUAB #### [facility] [address] [address] [address] Con Santana Glucose [Mass/Vol] 169 mg/dL Critically high 74-106 [facility] Comment on above: Performed By: #### P OCGLUC #### [facility] [address] [address] [address] Con Santana Glucose [Mass/Vol] 173 mg/dL Critically high 74-106 [facility] Comment on above: Performed By: #### I NFLUAB #### [facility] [address] [place] [address] Dr. Con Santana PROF CHEM 8 (BAS METB)on Anion gap [Moles/Vol] 18.8 mmol/L [facility] Comment on above: Performed By: #### I NFLUAB #### [facility] [address] [address] [address] Con Santana Calcium [Mass/Vol] 7.3 mg/dL Critically low 8.5-10.1 Th [facility] Comment on above: Performed By: #### I NFLUAB #### [facility] [address] [address] [address] Con Santana Chloride [Moles/Vol] 109 mmol/L Critically high 98-107 [facility] Comment on above: Performed By: #### I NFLUAB #### [facility] [address] [address] [address] Con Santana CO2 [Moles/Vol] 17.3 mmol/L Critically low 21.0-32.0 [facility] Comment on above: Performed By: #### I NFLUAB #### [facility] [address] [address] [address] Con Santana Creatinine [Mass/Vol] 1.28 mg/dL Critically high 0.55-1.02 [facility] Comment on above: Performed By: #### I NFLUAB #### [facility] [address] [place] [address] Dr. Con Santana EGFR-AF BOTSWANAN 48 mL/min/1.73m2 Critically low >=60 [facility] Comment on above: Performed By: #### I NFLUAB #### [facility] [address] [place] [address] Dr. Con Santana EGFR-NON AF BOTSWANAN 40 mL/min/1.73m2 Critically low >=60 [facility] Comment on above: Performed By: #### I NFLUAB #### [facility] [address] [place] [address] Dr. Con Santana Glucose [Mass/Vol] 161 mg/dL Critically high 74-106 [facility] Comment on above: Performed By: #### I NFLUAB #### [facility] [address] [place] [address] Dr. Con Santana Potassium [Moles/Vol] 3.1 mmol/L Critically low 3.5-5.1 [facility] Comment on above: Performed By: #### I NFLUAB #### [facility] [address] [place] [address] Dr. Con Santana Sodium [Moles/Vol] 142 mmol/L Normal 136-145 [facility] Comment on above: Performed By: #### I NFLUAB #### [facility] [address] [place] [address] Dr. Con Santana Urea nitrogen [Mass/Vol] 24.0 mg/dL Critically high 7.0-18.0 [facility] Comment on above: Performed By: #### I NFLUAB #### [facility] [address] [place] [address] Dr. Con Santana Urea nitrogen/Creatinine [Mass ratio] 18.8 mg/mg Normal [facility] Comment on above: Performed By: #### I NFLUAB #### [facility] [address] [place] [address] Dr. Con Santana UA RANDOM W/MICROSCOPICon BACTERIA NONE SEEN Normal NONE SEEN [facility] Comment on above: Performed By: #### P OCGLUC #### [facility] [address] [place] [address] Dr. Con Santana Bilirubin Ql (U) Negative Normal NEGATIVE [facility] Comment on above: Performed By: #### P OCGLUC #### [facility] [address] [place] [address] Dr. Con Santana CAST NONE SEEN Normal NONE SEEN [facility] Comment on above: Performed By: #### P OCGLUC #### [facility] [address] [place] [address] Dr. Con Santana Clarity (U) CLEAR Normal CLEAR [facility] Comment on above: Performed By: #### P OCGLUC #### [facility] [address] [place] [address] Dr. Con Santana Color (U) LT. YELLOW Normal YELLOW [facility] Comment on above: Performed By: #### P OCGLUC #### [facility] [address] [place] [address] Dr. Con Santana Crystals LM Nom (Urine sed) NONE SEEN Normal NONE SEEN [facility] Comment on above: Performed By: #### P OCGLUC #### [facility] [address] [place] [address] Dr. Con Santana Epithelial cells LM Ql (Urine sed) FEW Abnormal NONE SEEN /RARE [facility] Comment on above: Performed By: #### P OCGLUC #### [facility] [address] [place] [address] Dr. Con Santana Glucose Ql (U) Negative Normal NEGATIVE [facility] Comment on above: Performed By: #### P OCGLUC #### [facility] [address] [place] [address] Dr. Con Santana Hemoglobin Ql (U) Negative Normal NEGATIVE [facility] Comment on above: Performed By: #### P OCGLUC #### [facility] [address] [place] [address] Dr. Con Santana Ketones Ql (U) Negative Normal NEGATIVE [facility] Comment on above: Performed By: #### P OCGLUC #### [facility] [address] [address] [address] Con Santana LEUKOCYTES TRACE Abnormal NEGATIVE [facility] Comment on above: Performed By: #### P OCGLUC #### [facility] [address] [address] [address] Con Santana MUCOUS NONE SEEN Normal NONE SEEN [facility] Comment on above: Performed By: #### P OCGLUC #### [facility] [address] [address] [address] Con Santana Nitrite Ql (U) Negative Normal NEGATIVE [facility] Comment on above: Performed By: #### P OCGLUC #### [facility] [address] [place] [address] Dr. Con Santana pH (U) 5.5 [pH] Normal 5-9 [facility] Comment on above: Performed By: #### P OCGLUC #### [facility] [address] [address] [address] Con Santana RBC 0-2 Normal 0-2 [facility] Comment on above: Performed By: #### P OCGLUC #### [facility] [address] [place] [address] Dr. Con Santana SPEC GRAVITY 1.010 Normal 1.005-<=1.025 [facility] Comment on above: Performed By: #### P OCGLUC #### [facility] [address] [place] [address] Dr. Con Santana UA PROTEIN Negative Normal NEGATIVE/ TRACE [facility] Comment on above: Performed By: #### P OCGLUC #### [facility] [address] [place] [address] Dr. Con Santana Urobilinogen Qn (U) 0.2 {Godfrey'U}/dL Normal 0.2 - 1. 0 [facility] Comment on above: Performed By: #### P OCGLUC #### [facility] [address] [place] [address] Dr. Con Santana WBC 2-5 Abnormal NONE SEEN [facility] Comment on above: Performed By: #### P OCGLUC #### [facility] [address] [place] [address] Dr. Con Santana XR CHEST 2 Von 12-30-2022 XR CHEST 2 V EXAMINATION: XR CHES T 2 V HISTORY: shortness of breath or wheezing COMPARISON: XR chest 12/28/2022 FINDINGS: LUNGS: Hyperexpanded lungs with increased lucency throughout compatible with COPD. No appreciable infiltrates or mass. New increased density posterior to the heart represents a hiatal hernia. VASCULATURE: No increased pulmonary vasculature. PLEURA: No pneumothorax, effusion, or pleural thickening. CARDIAC: No cardiomegaly or cardiac silhouette abnormality. MEDIASTINUM: No visible mass or adenopathy. BONES: No fracture or visible bone lesion. OTHER: Negative. IMPRESSION: 1. No acute cardiopulmonary process. 2. Hyperexpanded lungs suggestive of advanced COPD. Electronically authenticated by: ELEAZAR GUERRA Date: 2022-12-30 11:35 Normal [facility] BNPon 12-29-2022 Natriuretic peptide B (Bld) [Mass/Vol] 4120.0 pg/mL Critically high <=1,800.0 [facility] Comment on above: Performed By: #### LISA INTERIANO #### [facility] [address] [place] [address] Dr. Con Santana Natriuretic peptide B (Bld) [Mass/Vol] 3274.0 pg/mL Critically high <=1,800.0 [facility] Comment on above: Performed By: #### P OCGLUC #### [facility] [address] [place] [address] Dr. Con Santana CBC AUTO DIFFon 12-29-2022 BASO # 0.0 103/ul Normal 0.0-0.1 [facility] Comment on above: Performed By: #### C BC #### [facility] [address] [place] [address] Dr. Cno Santana Basophils/100 WBC (Bld) 0.0 % Critically low 0.2-2.0 [facility] Comment on above: Performed By: #### C BC #### [facility] [address] [place] [address] Dr. Con Santana EO # 0.0 103/ul Normal 0.0-0.7 [facility] Comment on above: Performed By: #### C BC #### [facility] [address] [place] [address] Dr. Con Santana Eosinophils/100 WBC (Bld) 0.2 % Critically low 0.9-7.0 [facility] Comment on above: Performed By: #### C BC #### [facility] [address] [place] [address] Dr. Con Santana Erythrocyte distribution width (RBC) [Ratio] 13.6 % Normal 11.0-15.0 [facility] Comment on above: Performed By: #### C BC #### [facility] [address] [place] [address] Dr. Con Santana Hematocrit (Bld) [Volume fraction] 29.8 % Critically low 36.0-48.0 [facility] Comment on above: Performed By: #### C BC #### [facility] [address] [place] [address] Dr. Con Santana Hemoglobin (Bld) [Mass/Vol] 9.5 g/dL Critically low 12.0-16.0 [facility] Comment on above: Performed By: #### C BC #### [facility] [address] [place] [address] Dr. Con Santana IG # 0.05 10e3/ul Critically high 0.00-0.03 [facility] Comment on above: Performed By: #### C BC #### [facility] [address] [place] [address] Dr. Con Santana IG % 0.9 % Critically high 0.0-0.5 [facility] Comment on above: Performed By: #### C BC #### [facility] [address] [place] [address] Dr. Con Santana LYMPH # 0.7 103/ul Critically low 1.2-3.8 [facility] Comment on above: Performed By: #### C BC #### [facility] [address] [place] [address] Dr. Con Santaan Lymphocytes/100 WBC (Bld) 13.0 % Critically low 20.5-60.0 [facility] Comment on above: Performed By: #### C BC #### [facility] [address] [place] [address] Dr. Con Santana MANUAL DIFF REQ NO Normal [facility] Comment on above: Performed By: #### C BC #### [facility] [address] [place] [address] Dr. Con Santana MCH (RBC) [Entitic mass] 30.5 pg Normal 26.7-34.0 [facility] Comment on above: Performed By: #### C BC #### [facility] [address] [place] [address] Dr. Con Santana MCHC (RBC) [Mass/Vol] 31.9 g/dL Normal 29.9-35.2 [facility] Comment on above: Performed By: #### C BC #### [facility] [address] [place] [address] Dr. Con Santana MCV (RBC) [Entitic vol] 95.8 fL Normal 81.0-99.0 [facility] Comment on above: Performed By: #### C BC #### [facility] [address] [place] [address] Dr. Con Santana MONO # 0.1 103/ul Critically low 0.3-0.8 [facility] Comment on above: Performed By: #### C BC #### [facility] [address] [place] [address] Dr. Con Santana Monocytes/100 WBC (Bld) 1.5 % Critically low 1.7-12.0 [facility] Comment on above: Performed By: #### C BC #### [facility] [address] [place] [address] Dr. Con Santana NEUT # 4.5 103/ul Normal 1.4-6.5 [facility] Comment on above: Performed By: #### C BC #### [facility] [address] [place] [address] Dr. Con Santana Neutrophils/100 WBC (Bld) 84.4 % Critically high 43.0-75.0 [facility] Comment on above: Performed By: #### C BC #### [facility] [address] [place] [address] Dr. Con Santana Platelet mean volume (Bld) [Entitic vol] 10.3 fL Normal 9.5-13.5 [facility] [facility] Comment on above: Performed By: #### C BC #### [facility] [address] [place] [address] Dr. Con Santana PLT 178 103/ul Normal 150-450 [facility] Comment on above: Performed By: #### C BC #### [facility] [address] [place] [address] Dr. Con Santana RBC 3.11 106/ul Critically low 4.20-5.40 [facility] Comment on above: Performed By: #### C BC #### [facility] [address] [place] [address] Dr. Con Santana WBC 5.3 103/ul Normal 4.0-11.0 [facility] Comment on above: Performed By: #### C BC #### [facility] [address] [place] [address] Dr. Con Santana BASO # 0.0 103/ul Normal 0.0-0.1 [facility] Comment on above: Performed By: #### C BC #### [facility] [address] [place] [address] Dr. Con Santana Basophils/100 WBC (Bld) 0.1 % Critically low 0.2-2.0 [facility] Comment on above: Performed By: #### C BC #### [facility] [address] [place] [address] Dr. Con Santana EO # 0.4 103/ul Normal 0.0-0.7 [facility] Comment on above: Performed By: #### C BC #### [facility] [address] [place] [address] Dr. Con Santana Eosinophils/100 WBC (Bld) 5.9 % Normal 0.9-7.0 [facility] Comment on above: Performed By: #### C BC #### [facility] [address] [place] [address] Dr. Con Santana Erythrocyte distribution width (RBC) [Ratio] 13.5 % Normal 11.0-15.0 [facility] Comment on above: Performed By: #### C BC #### [facility] [address] [place] [address] Dr. Con Santana Hematocrit (Bld) [Volume fraction] 29.4 % Critically low 36.0-48.0 [facility] Comment on above: Performed By: #### C BC #### [facility] [address] [place] [address] Dr. Con Santana Hemoglobin (Bld) [Mass/Vol] 9.5 g/dL Critically low 12.0-16.0 [facility] Comment on above: Performed By: #### C BC #### [facility] [address] [place] [address] Dr. Con Santana IG # 0.04 10e3/ul Critically high 0.00-0.03 [facility] Comment on above: Performed By: #### C BC #### [facility] [address] [place] [address] Dr. Con Santana IG % 0.6 % Critically high 0.0-0.5 [facility] Comment on above: Performed By: #### C BC #### [facility] [address] [place] [address] Dr. Con Santana LYMPH # 1.1 103/ul Critically low 1.2-3.8 [facility] Comment on above: Performed By: #### C BC #### [facility] [address] [place] [address] Dr. Con Santana Lymphocytes/100 WBC (Bld) 15.7 % Critically low 20.5-60.0 [facility] Comment on above: Performed By: #### C BC #### [facility] [address] [place] [address] Dr. Con Santana MANUAL DIFF REQ NO Normal [facility] Comment on above: Performed By: #### C BC #### [facility] [address] [address] [address] Con Santana MCH (RBC) [Entitic mass] 31.3 pg Normal 26.7-34.0 [facility] Comment on above: Performed By: #### C BC #### [facility] [address] [address] [address] Con Santana MCHC (RBC) [Mass/Vol] 32.3 g/dL Normal 29.9-35.2 [facility] Comment on above: Performed By: #### C BC #### [facility] [address] [place] [address] Dr. Con Santana MCV (RBC) [Entitic vol] 96.7 fL Normal 81.0-99.0 [facility] Comment on above: Performed By: #### C BC #### [facility] [address] [place] [address] Dr. Con Santana MONO # 0.4 103/ul Normal 0.3-0.8 [facility] Comment on above: Performed By: #### C BC #### [facility] [address] [place] [address] Dr. Con Santana Monocytes/100 WBC (Bld) 5.9 % Normal 1.7-12.0 [facility] Comment on above: Performed By: #### C BC #### [facility] [address] [place] [address] Dr. Con Santana NEUT # 5.0 103/ul Normal 1.4-6.5 [facility] Comment on above: Performed By: #### C BC #### [facility] [address] [place] [address] Dr. Con Santana Neutrophils/100 WBC (Bld) 71.8 % Normal 43.0-75.0 [facility] Comment on above: Performed By: #### C BC #### [facility] [address] [place] [address] Dr. Con Santana Platelet mean volume (Bld) [Entitic vol] 10.0 fL Normal 9.5-13.5 [facility] Comment on above: Performed By: #### C BC #### [facility] [address] [place], [place] [address] Dr. Con Santana PLT 173 103/ul Normal 150-450 [facility] Comment on above: Performed By: #### C BC #### [facility] [address] [place], [place] [address] Dr. Con Santana RBC 3.04 106/ul Critically low 4.20-5.40 [facility] Comment on above: Performed By: #### C BC #### [facility] [address] [place], [place] [address] Dr. Con Santana WBC 7.0 103/ul Normal 4.0-11.0 [facility] Comment on above: Performed By: #### C BC #### [facility] [address] [address] [address] Con Santana ECHOCARDIO M/2D COMPLETEon 0 12-29-2022 ECHOCARDIO M/2D COMPLETE Patient: SALOME DOMINGUEZ Exam Date: 12/29/2022 : 1940 Gender:F Ordering : SIVA CROSS Admission #: [id number] Family : DR EMILIA JACKSON . Order #: [id number] CLICK HERE TO VIEW EXAM ECHOCARDIOGRAM REPORT PROCEDURE: CARDIO PULMONARY ECHOCARDIO M/2D COMP INDICATIONS: Elevated BNP , Shortness of breath COMPARISON: None. DESCRIPTION: COMPLETE ECHOCARDIOGRAM Real-time transthoracic echocardiography with 2D, M-mode, spectral and color flow Doppler performed. QUALITY: Technical quality was adequate. Right 5' 6 , weight 118# BSA 1.6 m? LEFT VENTRICLE: Normal chamber size. Normal left ventricular wall thickness. Global left ventricular systolic function is normal. LV EF: Visual estimation of left ventricular ejection fraction is 55-60% DIASTOLIC: ATRIAL SEPTUM: LEFT ATRIUM: Mildly dilated. RIGHT ATRIUM: Normal chamber size. RIGHT VENTRICLE: Normal chamber size. Normal right ventricular systolic function. TRICUSPID VALVE: Normal mobility and thickness. No stenosis with mild regurgitation. Mild pulmonary hypertension. RVSP 39 mmHg MITRAL VALVE: Mildly thickened with normal mobility. No mitral valve prolapse. No evidence of mitral valve stenosis. Mild mitral annular calcification. Mild mitral regurgitation. AORTIC VALVE: Normal trileaflet appearance. Moderately diminished mobility. Doppler velocity suggest moderate to severe aortic valve stenosis. DVI 0.32, ERNESTINA 0.93 cm?, Vmax 3.24 m/s, Mean gratient 23 mmHg. Trivial aortic regurgitation. Aortic valve VTI 75.6 cm. LVOT VTI 27.5 cm. LVOT diameter 1.8 cm. Stroke-volume 70 mL. Stroke-volume index 44 mL/m?. AORTIC ROOT: Normal diameter and appearance. PULMONIC VALVE: Normal thickness and mobility. No stenosis. No regurgitation. PERICARDIUM: No evidence of pericardial effusion. IVC: Collapses with inspirations. Normal size. PLEURA: CONCLUSION: 1. Normal ventricular systolic function. LVEF is 55 to 60%. 2. Moderate to severe aortic valve stenosis. 3. Mild tricuspid regurgitation. 4. Mildly elevated right-sided pressures. 5. No pericardial effusion. 6. A transesophageal echocardiogram can provide better assessment of the aortic valve. Adult Echocardiography Procedure Report Left Ventricle LVEDD (3.7 - 5.6 cm): 4.58 cm LVESD (2.2 - 4.0 cm): 3.42 cm LVIVS thickness (0.6 - 1.2 cm): 1.07 cm LVPW thickness (0.5 - 1.0 cm): 0.80 cm e': 0.15 m/s E - e': 9.74 LVOT Max Gradient: 4.21 mm[Hg] Peak Velocity (LVOT): 1.03 m/s Mean Velocity (LVOT): 0.73 m/s LVOT Diameter 1.69 cm Left Ventricular Ejection Fraction: 55-60 % Left Atrium Left Atrium Systolic Dimension: 3.55 cm Mitral Valve MV E to A Ratio: 1.28 Mitral Valve A-Wave Peak Velocity: 1.15 m/s Mitral Valve E-Wave Peak Velocity: 1.48 m/s Right Ventricle RV Internal Diastolic Dimension: 3.12 cm Aorta AO Root Diam: 2.39 cm Ascending Ao Diam: 2.83 cm Aortic Valve AoV Area (Peak Man): 0.80 cm2 AoV Area (VTI): 0.93 cm2 Peak Velocity(Antegrade Flow): 2.99 m/s, 3.24 m/s, 2.87 m/s Peak Gradient(Antegrade Flow): 35.87 mm[Hg], 41.92 mm[Hg], 32.87 mm[Hg] Mean Velocity(Antegrade Flow): 2.15 m/s, 2.15 m/s, 1.88 m/s Mean Gradient(Antegrade Flow): 20.60 mm[Hg], 23.22 mm[Hg], 16.09 mm[Hg] Velocity Time Integral: 77.57 cm, 75.60 cm, 70.31 cm Tricuspid Valve Peak Velocity (Regurgitant Flow): 1.82 m/s, 2.21 m/s, 3.02 m/s Peak Velocity: 0.65 m/s Pulmonic Valve Peak Velocity: 1.34 m/s, 1.12 m/s Peak Gradient: 7.23 mm[Hg], 5.04 mm[Hg] Right Atrium Right Atrium Systolic Pressure: 31.64 ml, 31.64 ml Dictated by: Jefferson Varma M.D. on 01/01/2023 at 09:00 Approved by: Jefferson Varma M.D. on 01/01/2023 at 09:24 Normal [facility] LACTATE/LACTIC ACIDon 2022 Lactate [Moles/Vol] 0.6 mmol/L Normal 0.4-2.0 [facility] Comment on above: Performed By: #### C BC #### [facility] [address] [place] [address] Dr. Con Santana PH VENOUS BLOODon 12-29-2022 PCO2 VENOUS 34.6 mmHg Critically low 40.0-52.0 [facility] Comment on above: Performed By: #### C BC #### [facility] [address] [place] [address] Dr. Con Santana pH VENOUS 7.343 Normal 7.330-7.430 [facility] Comment on above: Performed By: #### C BC #### [facility] [address] [place] [address] Dr. Con Santana POINT OF CARE GLUCOSEon Glucose [Mass/Vol] 217 mg/dL Critically high 74-106 [facility] Comment on above: Performed By: #### C BC #### [facility] [address] [place] [address] Dr. Con Santana Glucose [Mass/Vol] 199 mg/dL Critically high 74-106 [facility] Comment on above: Performed By: #### C BC #### [facility] [address] [address] [address] Con Santana Glucose [Mass/Vol] 202 mg/dL Critically high 74-106 [facility] Comment on above: Performed By: #### P OCGLUC #### [facility] [address] [address] [address] Con Santana PROF 14(COMP METB)on 023 Albumin [Mass/Vol] 2.6 g/dL Critically low 3.4-5.0 [facility] Comment on above: Performed By: #### P OCGLUC #### [facility] [address] [place] [address] Dr. Con Santana Albumin/Globulin [Mass ratio] 1.1 {ratio} Normal [facility] Comment on above: Performed By: #### P OCGLUC #### [facility] [address] [place] [address] Dr. Con Santana ALP [Catalytic activity/Vol] 67 U/L Normal 46-116 [facility] Comment on above: Performed By: #### P OCGLUC #### [facility] [address] [place] [address] Dr. Con Santana ALT [Catalytic activity/Vol] 69 U/L Critically high 14-59 [facility] Comment on above: Performed By: #### P OCGLUC #### [facility] [address] [place] [address] Dr. Con Santana Anion gap [Moles/Vol] 15.0 mmol/L Normal [facility] Comment on above: Performed By: #### P OCGLUC #### [facility] [address] [place] [address] Dr. Con Santana AST [Catalytic activity/Vol] 24 U/L Normal 15-37 [facility] Comment on above: Performed By: #### P OCGLUC #### [facility] [address] [place] [address] Dr. Con Santana Bilirubin [Mass/Vol] 0.3 mg/dL Normal 0.2-1.0 [facility] Comment on above: Performed By: #### P OCGLUC #### [facility] [address] [address] [address] Con Santana Calcium [Mass/Vol] 7.4 mg/dL Critically low 8.5-10.1 Th [facility] Comment on above: Performed By: #### P OCGLUC #### [facility] [address] [address] [address] Con Santana Chloride [Moles/Vol] 110 mmol/L Critically high 98-107 [facility] Comment on above: Performed By: #### P OCGLUC #### [facility] [address] [place] [address] Dr. Con Santana CO2 [Moles/Vol] 21.1 mmol/L Normal 21.0-32.0 [facility] Comment on above: Performed By: #### P OCGLUC #### [facility] [address] [place] [address] Dr. Con Santana Creatinine [Mass/Vol] 0.79 mg/dL Normal 0.55-1.02 [facility] Comment on above: Performed By: #### P OCGLUC #### [facility] [address] [place] [address] Dr. Con Santana EGFR-AF BOTSWANAN >60 Normal >=60 [facility] Comment on above: Performed By: #### P OCGLUC #### [facility] [address] [address] [address] Con Santana EGFR-NON AF BOTSWANAN >60 Normal >=60 [facility] Comment on above: Performed By: #### P OCGLUC #### [facility] [address] [place] [address] Dr. Con Santana Globulin (S) [Mass/Vol] 2.3 g/dL Normal [facility] Comment on above: Performed By: #### P OCGLUC #### [facility] [address] [address] [address] Con Santana Glucose [Mass/Vol] 115 mg/dL Critically high 74-106 [facility] Comment on above: Performed By: #### P OCGLUC #### [facility] [address] [place] [address] Dr. Con Santana Potassium [Moles/Vol] 4.1 mmol/L Normal 3.5-5.1 [facility] Comment on above: Performed By: #### P OCGLUC #### [facility] [address] [place] [address] Dr. Con Santana Protein [Mass/Vol] 4.9 g/dL Critically low 6.4-8.2 [facility] Comment on above: Performed By: #### P OCGLUC #### [facility] [address] [place] [address] Dr. Con Santana Sodium [Moles/Vol] 142 mmol/L Normal 136-145 [facility] Comment on above: Performed By: #### P OCGLUC #### [facility] [address] [place] [address] Dr. Con Santana Urea nitrogen [Mass/Vol] 19.0 mg/dL Critically high 7.0-18.0 [facility] Comment on above: Performed By: #### P OCGLUC #### [facility] [address] [place] [address] Dr. Con Santana Urea nitrogen/Creatinine [Mass ratio] 24.1 mg/mg Normal [facility] Comment on above: Performed By: #### P OCGLUC #### [facility] [address] [place] [address] Dr. Con Santana PROF CHEM 8 (BAS METB)on Anion gap [Moles/Vol] 13.5 mmol/L Normal [facility] Comment on above: Performed By: #### LISA INTERIANO #### [facility] [address] [place] [address] Dr. Con Santana Calcium [Mass/Vol] 7.6 mg/dL Critically low 8.5-10.1 [facility] Comment on above: Performed By: #### LISA INTERIANO #### [facility] [address] [address] [address] Con Santana Chloride [Moles/Vol] 110 mmol/L Critically high 98-107 [facility] Comment on above: Performed By: #### TIM INTERIANORO #### [facility] [address] [place] [address] Dr. Con Santana CO2 [Moles/Vol] 18.7 mmol/L Critically low 21.0-32.0 [facility] Comment on above: Performed By: #### Anaya JAVIER UMICRO #### [facility] [address] [address] [address] Con Santana Creatinine [Mass/Vol] 0.79 mg/dL Normal 0.55-1.02 [facility] Comment on above: Performed By: #### Anaya JAVIER UMICRO #### [facility] [address] [place] [address] Dr. Con Santana EGFR-AF BOTSWANAN >60 Normal >=60 [facility] Comment on above: Performed By: #### Anaya JAVIER UMICRO #### [facility] [address] [place] [address] Dr. Con Santana EGFR-NON AF BOTSWANAN >60 Normal >=60 [facility] Comment on above: Performed By: #### TIM INTERIANORO #### [facility] [address] [place] [address] Dr. Con Santana Glucose [Mass/Vol] 155 mg/dL Critically high 74-106 [facility] Comment on above: Performed By: #### Anaya JAVIER UMICRO #### [facility] [address] [place] [address] Dr. Con Santana Potassium [Moles/Vol] 4.2 mmol/L Normal 3.5-5.1 [facility] Comment on above: Performed By: #### Anaya JAVIER, UMICRO #### [facility] [address] [place] [address] Dr. Con Santana Sodium [Moles/Vol] 138 mmol/L Normal 136-145 [facility] Comment on above: Performed By: #### LISA INTERIANO #### [facility] [address] [place] [address] Dr. Con Santana Urea nitrogen [Mass/Vol] 21.0 mg/dL Critically high 7.0-18.0 [facility] Comment on above: Performed By: #### LISA INTERIANO #### [facility] [address] [place] [address] Dr. Con Santana Urea nitrogen/Creatinine [Mass ratio] 26.6 mg/mg Normal [facility] Comment on above: Performed By: #### LISA INTERIANO #### [facility] [address] [place] [address] Dr. Con Santana PROTIMEon 12-29-2022 INR Coag (PPP) [Relative time] 1.00 {INR} Normal [facility] Comment on above: Performed By: #### P OCGLUC #### [facility] [address] [place] [address] Dr. Con Santana INR GUIDELINES SEE BELOW Normal [facility] Comment on above: Result Comment: CANDELARIA RED INR: 2.0 - 3.0 CONDITIONS NOT LISTED BELOW 2.5 - 3.5 FOR PROSTHETIC HEART VALVE REPLACEMENT 2.5 - 3.5 RECURRENT THROMBOSIS Performed By: #### P OCGLUC #### [facility] [address] [place] [address] Dr. Con Santana PT Coag (PPP) [Time] 10.6 s Normal 9.0-11.6 [facility] Comment on above: Performed By: #### P OCGLUC #### [facility] [address] [place] [address] Dr. Con Santana PTTon 12-29-2022 aPTT Coag (Bld) [Time] 28.2 s Normal 22.3-36.2 [facility] Comment on above: Performed By: #### I NFLUAB #### [facility] [address] [place] [address] Dr. Con Santana TROPONIN, HIGH SENSITIVITYon 12-29-2022 HSTROP 16.0 pg/mL Normal 4.0-51.3 [facility] Comment on above: Result Comment: CUT- OFF POINTS HAVE BEEN ESTABLISHED BASED ON THE FOURTH UNIVERSAL DEFINITIONS OF MYOCARDIAL INFARCTION. THE UPPER REFERENCE LIMIT (URL) OF TROPONIN, DEFINED THE 99TH PERCENTILE OF cTnI DISTRIBUTION IN A REFERENCE POPULATION, HAS BEEN CONFIRMED THE DECISION THRESHOLD FOR PA DIAGNOSIS. Performed By: #### H STROPN #### [facility] [address] [address] [address] Con Santana HSTROP 23.6 pg/mL Normal 4.0-51.3 [facility] Comment on above: Result Comment: CUT- OFF POINTS HAVE BEEN ESTABLISHED BASED ON THE FOURTH UNIVERSAL DEFINITIONS OF MYOCARDIAL INFARCTION. THE UPPER REFERENCE LIMIT (URL) OF TROPONIN, DEFINED THE 99TH PERCENTILE OF cTnI DISTRIBUTION IN A REFERENCE POPULATION, HAS BEEN CONFIRMED THE DECISION THRESHOLD FOR PA DIAGNOSIS. Performed By: #### P OCGLUC #### [facility] [address] [address] [address] Con Santana XR CHEST 1 Von 12-29-2022 XR CHEST 1 V XR CHEST 1 V 9:14 PM EDT CLINICAL INDICATION: Shortness of breath COMPARISON: 12/22/2021 TECHNIQUE: Portable semiupright AP view of the chest. FINDINGS: There are no tubes or implants noted. The cardiomediastinal silhouette and pulmonary vasculature are within normal limits. Retrocardiac opacity is seen. No pneumothorax or pleural effusion. No displaced rib fractures. Osseous structures demonstrate degenerative changes. Soft tissues are grossly normal. IMPRESSION: Retrocardiac opacity may represent atelectasis or pneumonia. Electronically authenticated by: TRINI CISNEROS Date: 2022-12-28 22:49 Normal [facility] Covid-19 PCR (CVDTB)on SARS-CoV-2 (COVID-19) RNA JEANE+probe Ql (Unsp spec) Not detected Normal NOT DETECTED [facility] Comment on above: Result Comment: When diagnostic testing is negative, the possibility of a false negative should be considered in the context of a patient's recent exposures and the presence of clinical signs and symptoms consistent with SARS-CoV-2. This test is not yet approved or cleared by the [place] FDA. When there are no FDA-approved or cleared tests available, and other criteria are met, FDA can make tests available under an emergency access mechanism called an Emergency Use Authorization (EUA). The EUA for this test is supported by the [employer] Teacher of Health and Human Service's declaration that circumstances exist to justify the emergency use of in vitro diagnostics for the detection and/or diagnosis of the virus that causes COVID-19. This EUA will remain in effect for the duration of the COVID-19 declaration justifying emergency of IVDs, unless it is terminated or revoked by the FDA (after which the test may no longer be used). Performed By: #### C VDTBH #### [facility] [address] [place] [address] Dr. Con Santana PH VENOUS BLOODon 12-28-2022 PCO2 VENOUS 40.4 mmHg Normal 40.0-52.0 [facility] Comment on above: Performed By: #### I NFLUAB #### [facility] [address] [place] [address] Dr. Con Santana pH VENOUS 7.297 Critically low 7.330-7.430 [facility] Comment on above: Performed By: #### I NFLUAB #### [facility] [address] [place] [address] Dr. Con Santana CBC W MANUAL DIFFon 12-23-19 23 ATYPICAL LYMPH # Normal [facility] Comment on above: Performed By: #### C BC #### [facility] [address] [place] [address] Dr. Con Santana ATYPICAL LYMPH % Normal [facility] Comment on above: Performed By: #### C BC #### [facility] [address] [place] [address] Dr. Con Santana BAND # 0.0 103/ul Normal 0.0-0.3 [facility] Comment on above: Performed By: #### C BC #### [facility] [address] [place] [address] Dr. Con Santana BAND % 0 % Normal 0-5 [facility] Comment on above: Performed By: #### C BC #### [facility] [address] [place] [address] Dr. Con Santana BASOM # 0.00 103/ul Normal 0.00-0.10 [facility] Comment on above: Performed By: #### C BC #### [facility] [address] [place] [address] Dr. Con Santana BASOM % 0.0 % Critically low 0.2-2.0 [facility] Comment on above: Performed By: #### C BC #### [facility] [address] [place] [address] Dr. Con Santana BLAST # Normal [facility] Comment on above: Performed By: #### C BC #### [facility] [address] [place] [address] Dr. Con Santana BLAST % Normal [facility] Comment on above: Performed By: #### C BC #### [facility] [address] [place] [address] Dr. Con Santana CORRECTED WBC Normal 4.0-11.0 [facility] Comment on above: Performed By: #### C BC #### [facility] [facility] [address] [place] [address] Dr. Con Santana EOS # 0.00 103/ul Normal 0.00-0.70 [facility] Comment on above: Performed By: #### C BC #### [facility] [address] [place] [address] Dr. Cno Santana EOS% 0.0 % Critically low 0.9-7.0 [facility] Comment on above: Performed By: #### C BC #### [facility] [address] [place] [address] Dr. Con Santana HCT 31.2 % Critically low 36.0-48.0 [facility] Comment on above: Performed By: #### C BC #### [facility] [address] [place] [address] Dr. Con Santana HGB 10.2 g/dl Critically low 12.0-16.0 [facility] Comment on above: Performed By: #### C BC #### [facility] [address] [place] [address] Dr. Con Santana LYMPHM # 0.32 103/ul Critically low 1.20-3.80 [facility] Comment on above: Performed By: #### C BC #### [facility] [address] [place] [address] Dr. Con Santana LYMPHM% 3.0 % Critically low 20.5-60.0 [facility] Comment on above: Performed By: #### C BC #### [facility] [address] [place] [address] Dr. Con Santana MCH 30.7 pg Normal 26.7-34.0 [facility] Comment on above: Performed By: #### C BC #### [facility] [address] [place] [address] Dr. Con Santana MCHC 32.7 g/dl Normal 29.9-35.2 [facility] Comment on above: Performed By: #### C BC #### [facility] [address] [place] [address] Dr. Con Santana MCV 94.0 fL Normal 81.0-99.0 [facility] Comment on above: Performed By: #### C BC #### [facility] [address] [place] [address] Dr. Con Santana METAMYELOCYTE # Normal [facility] Comment on above: Performed By: #### C BC #### [facility] [address] [place] [address] Dr. Con Santana METAMYELOCYTE % Normal [facility] Comment on above: Performed By: #### C BC #### [facility] [address] [place] [address] Dr. Con Santana MONOM# 0.11 103/ul Critically low 0.30-0.80 [facility] Comment on above: Performed By: #### C BC #### [facility] [address] [place] [address] Dr. Con Santana MONOM% 1.0 % Critically low 1.7-12.0 [facility] Comment on above: Performed By: #### C BC #### [facility] [address] [place], [place] [id number] Dr. Con Santana MPV 10.6 fL Normal 9.5-13.5 [facility] Comment on above: Performed By: #### C BC #### [facility] [address] [place] [address] Dr. Con Santana MYELOCYTE # Normal [facility] Comment on above: Performed By: #### C BC #### [facility] [address] [place] [address] Dr. Con Santana MYELOCYTE % Normal [facility] Comment on above: Performed By: #### C BC #### [facility] [address] [place] [address] Dr. Con Santana NRBC Normal [facility] Comment on above: Performed By: #### C BC #### [facility] [address] [place] [address] Dr. Con Santana PLT 242 103/ul Normal 150-450 [facility] Comment on above: Performed By: #### C BC #### [facility] [address] [place] [address] Dr. Con Santana RBC 3.32 106/ul Critically low 4.20-5.40 [facility] Comment on above: Performed By: #### C BC #### [facility] [address] [place] [address] Dr. Con Santana RDW 13.2 % Normal 11.0-15.0 [facility] Comment on above: Performed By: #### C BC #### [facility] [address] [place] [address] Dr. Con Santana SEG # 10.18 103/ul Critically high 1.40-6.50 [facility] Comment on above: Performed By: #### C BC #### [facility] [address] [place] [address] Dr. Con Santana SEG % 96.0 % Critically high 43.0-75.0 [facility] Comment on above: Performed By: #### C BC #### [facility] [address] [place] [address] Dr. Con Santana WBC 10.6 103/ul Normal 4.0-11.0 [facility] Comment on above: Performed By: #### C BC #### [facility] [address] [place] [address] Dr. Con Santana POINT OF CARE GLUCOSEon 11-27 Glucose [Mass/Vol] 139 mg/dL Critically high 74-106 [facility] Comment on above: Performed By: #### I NFLUAB #### [facility] [address] [address] [address] Con Santana Glucose [Mass/Vol] 151 mg/dL Critically high 74-106 [facility] Comment on above: Performed By: #### I NFLUAB #### [facility] [address] [place] [address] Dr. Con Santana Glucose [Mass/Vol] 200 mg/dL Critically high 74-106 [facility] Comment on above: Performed By: #### P OCGLUC #### [facility] [address] [place] [address] Dr. Con Santana PROF CHEM 8 (BAS METB)on Anion gap [Moles/Vol] 17.1 mmol/L Normal [facility] Comment on above: Performed By: #### P OCGLUC #### [facility] [address] [place] [address] Dr. Con Santana Calcium [Mass/Vol] 7.7 mg/dL Critically low 8.5-10.1 [facility] Comment on above: Performed By: #### P OCGLUC #### [facility] [address] [place] [address] Dr. Con Santana Chloride [Moles/Vol] 111 mmol/L Critically high 98-107 [facility] Comment on above: Performed By: #### P OCGLUC #### [facility] [address] [place] [address] Dr. Con Santana CO2 [Moles/Vol] 17.1 mmol/L Critically low 21.0-32.0 [facility] Comment on above: Performed By: #### P OCGLUC #### [facility] [address] [address] [address] Con Santana Creatinine [Mass/Vol] 1.46 mg/dL Critically high 0.55-1.02 [facility] Comment on above: Performed By: #### P OCGLUC #### [facility] [address] [address] [address] Con Santana EGFR-AF BOTSWANAN 41 mL/min/1.73m2 Critically low >=60 [facility] Comment on above: Performed By: #### P OCGLUC #### [facility] [address] [address] [address] Con Santana EGFR-NON AF BOTSWANAN 34 mL/min/1.73m2 Critically low >=60 [facility] Comment on above: Performed By: #### P OCGLUC #### [facility] [address] [address] [address] Con Santana Glucose [Mass/Vol] 167 mg/dL Critically high 74-106 [facility] Comment on above: Performed By: #### P OCGLUC #### [facility] [address] [address] [address] Con Santana Potassium [Moles/Vol] 3.2 mmol/L Critically low 3.5-5.1 [facility] Comment on above: Performed By: #### P OCGLUC #### [facility] [address] [address] [address] Con Santana Sodium [Moles/Vol] 142 mmol/L Normal 136-145 [facility] Comment on above: Performed By: #### P OCGLUC #### [facility] [address] [address] [address] Con Santana Urea nitrogen [Mass/Vol] 40.0 mg/dL Critically high 7.0-18.0 [facility] Comment on above: Performed By: #### P OCGLUC #### [facility] [address] [address] [address] Con Santana Urea nitrogen/Creatinine [Mass ratio] 27.4 mg/mg Normal [facility] Comment on above: Performed By: #### P OCGLUC #### [facility] [address] [address] [address] Con Santana XR CHEST 1 Von 12-22-2022 XR CHEST 1 V EXAM: XR CHEST 1 V HISTORY: SHORTNESS OF BREATH COMPARISON: 12/20/2022 and 11/27/2020. TECHNIQUE: Chest X-ray AP, 1 view. FINDINGS: Support devices: None. Lungs/pleura: No consolidation, effusion, or pneumothorax. Lungs again appear hyperexpanded. Chronic appearing lung markings are unchanged. There is bronchial wall thickening, stranding within the right lower lung. Heart and mediastinum: Stable contours compared to prior examination. Hiatal hernia is again demonstrated. Bones: No acute abnormality identified. IMPRESSION: 1. No consolidation. 2. Bronchial wall thickening can be seen in the setting of small airways disease. 3. Pulmonary hyperexpansion-correla te with history of COPD. Electronically authenticated by: BRINA HENRY Date: 2022-12-22 07:32 Normal [facility] POINT OF CARE GLUCOSEon 11-27 Glucose [Mass/Vol] 195 mg/dL Critically high -106 [facility] Comment on above: Performed By: #### P OCGLUC #### [facility] [address] [address] [address] Con Santana Glucose [Mass/Vol] 174 mg/dL Critically high -106 [facility] Comment on above: Performed By: #### C BC #### [facility] [address] [address] [address] Con Santana Glucose [Mass/Vol] 148 mg/dL Critically high -106 [facility] Comment on above: Performed By: #### C BC #### [facility] [address] [address] [address] Con Santana BNPon 12-20-2022 Natriuretic peptide B (Bld) [Mass/Vol] 1276.0 pg/mL Normal <=1,800.0 [facility] Comment on above: Performed By: #### H STROPN #### [facility] [address] [address] [address] Con Santana CARDIAC MAXIMILIANO ADMITon 023 CK [Catalytic activity/Vol] 101 U/L Normal 26-192 [facility] Comment on above: Performed By: #### H STROPN #### [facility] [address] [address] [address] Con Santana CK.MB [Mass/Vol] 1.61 ng/mL Normal <=3.60 [facility] Comment on above: Performed By: #### H STROPN #### [facility] [address] [address] [address] Con Santana HSTROP 19.8 pg/mL Normal 4.0-51.3 [facility] Comment on above: Result Comment: CUT- OFF POINTS HAVE BEEN ESTABLISHED BASED ON THE FOURTH UNIVERSAL DEFINITIONS OF MYOCARDIAL INFARCTION. THE UPPER REFERENCE LIMIT (URL) OF TROPONIN, DEFINED THE 99TH PERCENTILE OF cTnI DISTRIBUTION IN A REFERENCE POPULATION, HAS BEEN CONFIRMED THE DECISION THRESHOLD FOR PA DIAGNOSIS. Performed By: #### H STROPN #### [facility] [address] [address] [address] Con Santana RAMONA 76 ng/mL Normal 9-82 [facility] Comment on above: Performed By: #### H STROPN #### [facility] [address] [address] [address] Con Santana CBC AUTO DIFFon 12-20-2022 BASO # 0.1 103/ul Normal 0.0-0.1 [facility] Comment on above: Performed By: #### P OCGLUC #### [facility] [address] [address] [address] Con Santana Basophils/100 WBC (Bld) 0.9 % Normal 0.2-2.0 [facility] Comment on above: Performed By: #### P OCGLUC #### [facility] [address] [address] [address] Con Santana EO # 0.8 103/ul Critically high 0.0-0.7 [facility] Comment on above: Performed By: #### P OCGLUC #### [facility] [address] [address] [address] Con Santana Eosinophils/100 WBC (Bld) 12.8 % Critically high 0.9-7.0 [facility] Comment on above: Performed By: #### P OCGLUC #### [facility] [address] [place] [address] Dr. Con Santana Erythrocyte distribution width (RBC) [Ratio] 13.0 % Normal 11.0-15.0 [facility] Comment on above: Performed By: #### P OCGLUC #### [facility] [address] [place] [address] Dr. Con Santana Hematocrit (Bld) [Volume fraction] 40.9 % Normal 36.0-48.0 [facility] Comment on above: Performed By: #### P OCGLUC #### [facility] [address] [place] [address] Dr. Con Santana Hemoglobin (Bld) [Mass/Vol] 13.3 g/dL Normal 12.0-16.0 [facility] Comment on above: Performed By: #### P OCGLUC #### [facility] [address] [place] [address] Dr. Con Santana IG # 0.01 10e3/ul Normal 0.00-0.03 [facility] Comment on above: Performed By: #### P OCGLUC #### [facility] [address] [place] [address] Dr. Con Santana IG % 0.2 % Normal 0.0-0.5 [facility] Comment on above: Performed By: #### P OCGLUC #### [facility] [address] [place] [address] Dr. Con Santana LYMPH # 3.3 103/ul Normal 1.2-3.8 [facility] Comment on above: Performed By: #### P OCGLUC #### [facility] [address] [place] [address] Dr. Con Santana Lymphocytes/100 WBC (Bld) 51.5 % Normal 20.5-60.0 [facility] Comment on above: Performed By: #### P OCGLUC #### [facility] [address] [place] [address] Dr. Con Santana MANUAL DIFF REQ NO Normal [facility] Comment on above: Performed By: #### P OCGLUC #### [facility] [address] [address] [address] Con Santana MCH (RBC) [Entitic mass] 31.3 pg Normal 26.7-34.0 [facility] Comment on above: Performed By: #### P OCGLUC #### [facility] [address] [address] [address] Con Santana MCHC (RBC) [Mass/Vol] 32.5 g/dL Normal 29.9-35.2 [facility] Comment on above: Performed By: #### P OCGLUC #### [facility] [address] [address] [address] Con Santana MCV (RBC) [Entitic vol] 96.2 fL Normal 81.0-99.0 [facility] Comment on above: Performed By: #### P OCGLUC #### [facility] [address] [place] [address] Dr. Con Santana MONO # 0.5 103/ul Normal 0.3-0.8 [facility] Comment on above: Performed By: #### P OCGLUC #### [facility] [address] [place] [address] Dr. Con Santana Monocytes/100 WBC (Bld) 7.0 % Normal 1.7-12.0 [facility] Comment on above: Performed By: #### P OCGLUC #### [facility] [address] [place] [address] Dr. Con Santana NEUT # 1.8 103/ul Normal 1.4-6.5 [facility] Comment on above: Performed By: #### P OCGLUC #### [facility] [address] [place] [address] Dr. Con Santana Neutrophils/100 WBC (Bld) 27.6 % Critically low 43.0-75.0 [facility] Comment on above: Performed By: #### P OCGLUC #### [facility] [address] [place] [address] Dr. Con Santana Platelet mean volume (Bld) [Entitic vol] 9.9 fL Normal 9.5-13.5 [facility] Comment on above: Performed By: #### P OCGLUC #### [facility] [address] [place] [address] Dr. Con Santana PLT 286 103/ul Normal 150-450 [facility] Comment on above: Performed By: #### P OCGLUC #### [facility] [address] [place] [address] Dr. Con Santana RBC 4.25 106/ul Normal 4.20-5.40 [facility] Comment on above: Performed By: #### P OCGLUC #### [facility] [address] [place] [address] Dr. Con Santana WBC 6.5 103/ul Normal 4.0-11.0 [facility] Comment on above: Performed By: #### P OCGLUC #### [facility] [address] [place] [address] Dr. Con Santana CULTURE BLOODon 12-20-2022 Microscopic examination of blood, culture Culture Observations: NO GROWTH AT 5 DAYS. Normal [facility] Comment on above: Performed By: #### B LDCX2 #### [facility] [address] [place] [address] Dr. Con Santana Microscopic examination of blood, culture Culture Observations: NO GROWTH AT 5 DAYS. Normal [facility] Comment on above: Performed By: #### C BC #### [facility] [address] [place] [address] Dr. Con Santana CULTURE URINEon 12-20-2022 CULTURE URINE Culture Observations : LIGHT GROWTH OF MIXED GENITAL [place]. NO POTENTIAL PATHOGENS SEEN. Normal [facility] Comment on above: Performed By: #### C BC #### [facility] [address] [place] [address] Dr. Con Santana Covid-19 PCR ([facility])on 11-27 SARS-CoV-2 (COVID-19) RNA JEANE+probe Ql (Unsp spec) Not detected Normal NOT DETECTED [facility] Comment on above: Result Comment: When diagnostic testing is negative, the possibility of a false negative should be considered in the context of a patient's recent exposures and the presence of clinical signs and symptoms consistent with SARS-CoV-2. This test is not yet approved or cleared by the [place] FDA. When there are no FDA-approved or cleared tests available, and other criteria are met, FDA can make tests available under an emergency access mechanism called an Emergency Use Authorization (EUA). The EUA for this test is supported by the [employer] of Health and Human Service's declaration that circumstances exist to justify the emergency use of in vitro diagnostics for the detection and/or diagnosis of the virus that causes COVID-19. This EUA will remain in effect for the duration of the COVID-19 declaration justifying emergency of IVDs, unless it is terminated or revoked by the FDA (after which the test may no longer be used). Performed By: #### C BC #### [facility] [address] [place] [address] Dr. Con Santana ER URINE PROFILEon 3 Bilirubin Ql (U) Negative Normal NEGATIVE [facility] Comment on above: Performed By: #### LISA INTERIANO #### [facility] [address] [place] [address] Dr. Con Santana Clarity (U) CLEAR Normal CLEAR [facility] Comment on above: Performed By: #### LISA INTERIANO #### [facility] [address] [place] [address] Dr. Con Santana Color (U) LT. YELLOW Normal YELLOW [facility] Comment on above: Performed By: #### TIM INTERIANORO #### [facility] [address] [place] [address] Dr. Con Santana ERUAHD A micrscopic examination will be performed if indicated. Normal [facility] Comment on above: Performed By: #### TIM INTERIANORO #### [facility] [address] [place] [address] Dr. Con Santana Glucose Ql (U) Negative Normal NEGATIVE [facility] Comment on above: Performed By: #### TIM INTERIANORO #### [facility] [address] [place] [address] Dr. Con Santana Hemoglobin Ql (U) TRACE-INTACT Abnormal NEGATIVE [facility] Comment on above: Performed By: #### E TABR, UMICRO #### [facility] [address] [place] [address] Dr. Con Santana Ketones Ql (U) TRACE Abnormal NEGATIVE [facility] Comment on above: Performed By: #### E RUR, UMICRO #### [facility] [address] [place] [address] Dr. Con Santana LEUKOCYTES MODERATE Abnormal NEGATIVE [facility] Comment on above: Performed By: #### E RUR, UMICRO #### [facility] [address] [place] [address] Dr. Con Santana Nitrite Ql (U) Positive Abnormal NEGATIVE [facility] Comment on above: Performed By: #### Anaya JAVIER UMICRO #### [facility] [address] [place] [address] Dr. Con Santana pH (U) 7.0 [pH] Normal 5-9 [facility] Comment on above: Performed By: #### Anaya JAVIER UMICRO #### [facility] [address] [place] [address] Dr. Con Santana SPEC GRAVITY 1.010 Normal 1.005-<=1.025 [facility] Comment on above: Performed By: #### Anaya JAVIER UMICRO #### [facility] [address] [place] [address] Dr. Con Santana UA PROTEIN TRACE Normal NEGATIVE/ TRACE [facility] Comment on above: Performed By: #### Anaya JAVIER, UMICRO #### [facility] [address] [place] [address] Dr. Con Santana UR MICRO IND INDICATED Normal [facility] Comment on above: Performed By: #### Anaya JAVIER, UMICRO #### [facility] [address] [place] [address] Dr. Con Santana Urobilinogen Qn (U) 0.2 {Godfrey'U}/dL Normal 0.2 - 1. 0 [facility] Comment on above: Performed By: #### E LISA JAVIER #### [facility] [address] [address] [address] Con Santana INFLUENZA A AND B AGon 12-20 INFLUENZA A AG Negative Normal NEGATIVE SEE COMMENT [facility] Comment on above: Performed By: #### I NFLUAB #### [facility] [address] [place] [address] Dr. Con Santana INFLUENZA B AG Negative Normal NEGATIVE SEE COMMENT [facility] Comment on above: Performed By: #### I NFLUAB #### [facility] [address] [place] [address] Dr. Con Santana LACTATE/LACTIC ACIDon 2022 Lactate [Moles/Vol] 0.6 mmol/L Normal 0.4-2.0 [facility] Comment on above: Performed By: #### P OCGLUC #### [facility] [address] [place] [address] Dr. Con Santana POINT OF CARE GLUCOSEon 11-27 Glucose [Mass/Vol] 217 mg/dL Critically high [address] [place] [address] Comment on above: Performed By: #### I NFLUAB #### [facility] [address] [place] [address] Dr. Con Santana Glucose [Mass/Vol] 204 mg/dL Critically high [address] [place] [address] Comment on above: Performed By: #### P OCGLUC #### [facility] [address] [place] [address] Dr. Con Santana Glucose [Mass/Vol] 148 mg/dL Critically high [address] [place] [address] Comment on above: Performed By: #### C BC #### [facility] [address] [place] [address] Dr. Con Santana PROF 14(COMP METB)on 023 Albumin [Mass/Vol] 3.4 g/dL Normal 3.4-5.0 [facility] Comment on above: Performed By: #### H STROPN #### [facility] [address] [place] [address] Dr. Con Santana Albumin/Globulin [Mass ratio] 1.1 {ratio} Normal [facility] Comment on above: Performed By: #### H STROPN #### [facility] [address] [address] [address] Con Santana ALP [Catalytic activity/Vol] 95 U/L Normal 46-116 [facility] Comment on above: Performed By: #### H STROPN #### [facility] [address] [address] [address] Con Santana ALT [Catalytic activity/Vol] 22 U/L Normal 14-59 [facility] Comment on above: Performed By: #### H STROPN #### [facility] [address] [address] [address] Con Santana Anion gap [Moles/Vol] 13.1 mmol/L Normal [facility] Comment on above: Performed By: #### H STROPN #### [facility] [address] [address] [address] Con Santana AST [Catalytic activity/Vol] U/L Critically low 15-37 [facility] Comment on above: Performed By: #### H STROPN #### [facility] [address] [address] [address] Con Santana Bilirubin [Mass/Vol] 0.4 mg/dL Normal 0.2-1.0 [facility] Comment on above: Performed By: #### H STROPN #### [facility] [address] [address] [address] Con Santana Calcium [Mass/Vol] 8.5 mg/dL Normal 8.5-10.1 [facility] Comment on above: Performed By: #### H STROPN #### [facility] [address] [address] [address] Con Santana Chloride [Moles/Vol] 107 mmol/L Normal 98-107 [facility] Comment on above: Performed By: #### H STROPN #### [facility] [address] [address] [address] Con Santana CO2 [Moles/Vol] 22.5 mmol/L Normal 21.0-32.0 [facility] Comment on above: Performed By: #### H STROPN #### [facility] [address] [address] [address] Con Santana Creatinine [Mass/Vol] 0.85 mg/dL Normal 0.55-1.02 [facility] Comment on above: Performed By: #### H STROPN #### [facility] [address] [address] [address] Con Santana EGFR-AF BOTSWANAN >60 Normal >=60 [facility] Comment on above: Performed By: #### H STROPN #### [facility] [address] [address] [address] Con Santana EGFR-NON AF BOTSWANAN >60 Normal >=60 [facility] Comment on above: Performed By: #### H STROPN #### [facility] [address] [place] [address] Dr. Con Santana Globulin (S) [Mass/Vol] 3.2 g/dL Normal [facility] Comment on above: Performed By: #### H STROPN #### [facility] [address] [address] [address] Con Santana Glucose [Mass/Vol] 131 mg/dL Critically high 74-106 [facility] Comment on above: Performed By: #### H STROPN #### [facility] [address] [place] [address] Dr. Con Santana Potassium [Moles/Vol] 3.6 mmol/L Normal 3.5-5.1 [facility] Comment on above: Performed By: #### H STROPN #### [facility] [address] [address] [address] Con [place] Protein [Mass/Vol] 6.6 g/dL Normal 6.4-8.2 [facility] Comment on above: Performed By: #### H STROPN #### [facility] [address] [address] [address] Con Santana Sodium [Moles/Vol] 139 mmol/L Normal 136-145 [facility] Comment on above: Performed By: #### H STROPN #### [facility] [address] [place] [address] Dr. Con Santana Urea nitrogen [Mass/Vol] 15.0 mg/dL Normal 7.0-18.0 [facility] Comment on above: Performed By: #### H STROPN #### [facility] [address] [place] [address] Dr. Con Santana Urea nitrogen/Creatinine [Mass ratio] 17.6 mg/mg Normal [facility] Comment on above: Performed By: #### H STROPN #### [facility] [address] [place] [address] Dr. Con Santana PROTIMEon 12-20-2022 INR Coag (PPP) [Relative time] 1.08 {INR} Normal [facility] Comment on above: Performed By: #### H STROPN #### [facility] [address] [place] [address] Dr. Con Santana INR GUIDELINES SEE BELOW Normal [facility] Comment on above: Result Comment: CANDELARIA RED INR: 2.0 - 3.0 CONDITIONS NOT LISTED BELOW 2.5 - 3.5 FOR PROSTHETIC HEART VALVE REPLACEMENT 2.5 - 3.5 RECURRENT THROMBOSIS Performed By: #### H STROPN #### [facility] [address] [place] [address] Dr. Con Santana PT Coag (PPP) [Time] 11.4 s Normal 9.0-11.6 [facility] Comment on above: Performed By: #### H STROPN #### [facility] [address] [place] [address] Dr. Con Santana PTTon 12-20-2022 aPTT Coag (Bld) [Time] 30.8 s Normal 22.3-36.2 [facility] Comment on above: Performed By: #### H STROPN #### [facility] [address] [place] [address] Dr. Con Santana URINE MICROSCOPIC ONLYon BACTERIA MODERATE Abnormal NONE SEEN [facility] Comment on above: Performed By: #### LISA INTERIANO #### [facility] [address] [place] [address] Dr. Con Santana Bacteria identified Cx Nom (U) INDICATED Normal [facility] Comment on above: Performed By: #### Anaya JAVIER UMICRO #### [facility] [address] [place] [address] Dr. Con Santana CAST NONE SEEN Normal NONE SEEN [facility] Comment on above: Performed By: #### Anaya JAVIER UMICRO #### [facility] [address] [place] [address] Dr. Con Santana Crystals LM Nom (Urine sed) NONE SEEN Normal NONE SEEN [facility] Comment on above: Performed By: #### Anaya JAVIER UMICRO #### [facility] [address] [place] [address] Dr. Con Santana Epithelial cells LM Ql (Urine sed) FEW Abnormal NONE SEEN /RARE [facility] Comment on above: Performed By: #### Anaya JAVIER UMICRO #### [facility] [address] [place] [address] Dr. Con Santana MUCOUS NONE SEEN Normal NONE SEEN [facility] Comment on above: Performed By: #### Anaya JAVIER UMICRO #### [facility] [address] [place] [address] Dr. Con Santana RBC 2-5 Abnormal 0-2 [facility] Comment on above: Performed By: #### Anaya JAVIER UMICRO #### [facility] [address] [place] [address] Dr. Con Santana WBC 20-50 Abnormal NONE SEEN [facility] Comment on above: Performed By: #### Anaya JAVIER UMICRO #### [facility] [address] [place] [address] Dr. Con Santana XR CHEST 1 Von 12-20-2022 XR CHEST 1 V EXAMINATION: XR CHES T 1 V HISTORY: SHORTNESS OF BREATH COMPARISON: XR chest 02/14/2022, 03/27/2021 FINDINGS: LUNGS: Hyperexpanded lungs. Small linear opacity within left lung base, nonspecific. VASCULATURE: No increased pulmonary vasculature. PLEURA: No pneumothorax, effusion, or pleural thickening. CARDIAC: No cardiomegaly or cardiac silhouette abnormality. MEDIASTINUM: No visible mass or adenopathy. BONES: No fracture or visible bone lesion. OTHER: Negative. IMPRESSION: 1. Hyperexpanded lungs compatible with COPD. This is also consistent with patient's history of chronic asthma. 2. Tiny, new opacity within left lung base; nonspecific but possibly focal infiltrates. Consider follow-up to document clearing. Electronically authenticated by: ELEAZAR GUERRA Date: 2022-12-20 05:55 Normal [facility] XR DEXA BONE DENSITYon 07-10 XR DEXA BONE DENSITY DEXA Bone Density Study CLINICAL: Evaluate bone mineral density. Postmenopausal COMPARISON: None FINDINGS: The bone density study was assessed by dual-energy x-ray absorptiometry with the HEALBE scanner. The test results are expressed in T-Score, which is used for diagnosis for osteoporosis, and reflects the standard deviations from the mean peak bone mineral density in young adults. Additional information regarding the Z-Score reflects the standard deviations from the mean peak bone mineral density for age- and gender- matched subject. Lumbar Spine (L1-L4): BMD (gm/cm2): 0.998 T-Score: -1.5 Left forearm: BMD (gm/cm2): 0.2-4 T-Score: -6.6 IMPRESSION: 1. Lumbar spine indicates osteopenia. 2. Left forearm indicates severe osteoporosis. REFERENCE: In children, postmenopausal women and males under age 50 not at increased risk for fractures, only Z-Scores, not T-Scores, are used to indicate fracture risk. A Z-Score above -2.0 is defined as within the expected range for age and Z-Score at or less than -2.0 is below the expected range for age. A Z-Score below the expected range for age in a patient with recent fractures and/or chronic corticosteroid treatment is consistent with a diagnosis of osteoporosis. In postmenopausal women and males over 50, comparison of the measured bone mineral density with the average value in young normal subjects (the T-Score) has been found to be useful in assessing fracture risk. Fracture risk approximately doubles for each 1.0 standard deviation (SD) that the individual's hip or spine bone mineral density is below the average value of young normal subjects. The World health Organization (WHO) has provided the following definitions: 1. Normal: T-Score within one standard deviation of young adult mean value (T-Score greater than -1.0). 2. Osteopenia (low bone mass): T-Score more than one standard deviation below the young adult mean but less than 2.5 standard deviations below the young adult mean (T-Score between -1.0 and -2.5). 3. Osteoporosis: T-Score more than 2.5 standard deviations below the young adult mean (T-Score less than -2.5). 4. Sever Osteoporosis (established osteoporosis): T-Score more than 2.5 standard deviations below young adult and one or more fragility fracture (T-Score less than -2.5 + fragility fractures). Electronically authenticated by: MATI ATKINS Date: 2022-07-10 16:49 Normal [facility] BNPon 02-14-2022 Natriuretic peptide B (Bld) [Mass/Vol] 1479.0 pg/mL Normal <=1,800.0 [facility] Comment on above: Performed By: #### E LISA JAVIER #### [facility] [address] [place] [address] Dr. Con Santana CBC AUTO DIFFon 02-14-2022 BASO # 0.1 103/ul Normal 0.0-0.1 [facility] Comment on above: Performed By: #### C BC #### [facility] [address] [place] [address] Dr. Con Santana Basophils/100 WBC (Bld) 0.9 % Normal 0.2-2.0 [facility] Comment on above: Performed By: #### C BC #### [facility] [address] [place] [address] Dr. Con Santana EO # 1.0 103/ul Critically high 0.0-0.7 The [facility] Comment on above: Performed By: #### C BC #### [facility] [address] [place] [address] Dr. Con Santana Eosinophils/100 WBC (Bld) 16.2 % Critically high 0.9-7.0 [facility] Comment on above: Performed By: #### C BC #### [facility] [address] [place] [address] Dr. Con Santana Erythrocyte distribution width (RBC) [Ratio] 12.7 % Normal 11.0-15.0 [facility] Comment on above: Performed By: #### C BC #### [facility] [address] [place] [address] Dr. Con Santana Hematocrit (Bld) [Volume fraction] 39.6 % Normal 36.0-48.0 [facility] Comment on above: Performed By: #### C BC #### [facility] [address] [place] [address] Dr. Con Santana Hemoglobin (Bld) [Mass/Vol] 12.9 g/dL Normal 12.0-16.0 [facility] Comment on above: Performed By: #### C BC #### [facility] [address] [place] [address] Dr. Con Santana IG # 0.02 10e3/ul Normal 0.00-0.03 [facility] Comment on above: Performed By: #### C BC #### [facility] [address] [place] [address] Dr. Con Santana IG % 0.3 % Normal 0.0-0.5 [facility] Comment on above: Performed By: #### C BC #### [facility] [address] [place] [address] Dr. Con Santana LYMPH # 2.6 103/ul Normal 1.2-3.8 [facility] Comment on above: Performed By: #### C BC #### [facility] [address] [place] [address] Dr. Con Santana Lymphocytes/100 WBC (Bld) 40.2 % Normal 20.5-60.0 [facility] Comment on above: Performed By: #### C BC #### [facility] [address] [place] [address] Dr. Con Santana MANUAL DIFF REQ NO Normal [facility] Comment on above: Performed By: #### C BC #### [facility] [address] [place] [address] Dr. Con Santana MCH (RBC) [Entitic mass] 31.5 pg Normal 26.7-34.0 [facility] Comment on above: Performed By: #### C BC #### [facility] [address] [place] [address] Dr. Con Santana MCHC (RBC) [Mass/Vol] 32.6 g/dL Normal 29.9-35.2 [facility] Comment on above: Performed By: #### C BC #### [facility] [address] [place] [address] Dr. Con Santana MCV (RBC) [Entitic vol] 96.6 fL Normal 81.0-99.0 [facility] Comment on above: Performed By: #### C BC #### [facility] [address] [place] [address] Dr. Con Santana MONO # 0.5 103/ul Normal 0.3-0.8 [facility] Comment on above: Performed By: #### C BC #### [facility] [address] [place] [address] Dr. Con Santana Monocytes/100 WBC (Bld) 8.4 % Normal 1.7-12.0 [facility] Comment on above: Performed By: #### C BC #### [facility] [address] [place] [address] Dr. Con Santana NEUT # 2.2 103/ul Normal 1.4-6.5 [facility] Comment on above: Performed By: #### C BC #### [facility] [address] [place] [address] Dr. Con Santana Neutrophils/100 WBC (Bld) 34.0 % Critically low 43.0-75.0 [facility] Comment on above: Performed By: #### C BC #### [facility] [address] [place] [address] Dr. Con Santana Platelet mean volume (Bld) [Entitic vol] 9.8 fL Normal 9.5-13.5 [facility] Comment on above: Performed By: #### C BC #### [facility] [address] [place] [address] Dr. Con Santana PLT 270 103/ul Normal 150-450 [facility] Comment on above: Performed By: #### C BC #### [facility] [address] [address] [address] Con Santana RBC 4.10 106/ul Critically low 4.20-5.40 [facility] Comment on above: Performed By: #### C BC #### [facility] [address] [address] [address] Con Santana WBC 6.3 103/ul Normal 4.0-11.0 [facility] Comment on above: Performed By: #### C BC #### [facility] [address] [address] [address] Con Santana Covid-19 PCR ([facility])on 01-27 SARS-CoV-2 (COVID-19) RNA JEANE+probe Ql (Unsp spec) Not detected Normal NOT DETECTED [facility] Comment on above: Result Comment: When diagnostic testing is negative, the possibility of a false negative should be considered in the context of a patient's recent exposures and the presence of clinical signs and symptoms consistent with SARS-CoV-2. This test is not yet approved or cleared by the [place] FDA. When there are no FDA-approved or cleared tests available, and other criteria are met, FDA can make tests available under an emergency access mechanism called an Emergency Use Authorization (EUA). The EUA for this test is supported by the [place] of Health and Human Service's declaration that circumstances exist to justify the emergency use of in vitro diagnostics for the detection and/or diagnosis of the virus that causes COVID-19. This EUA will remain in effect for the duration of the COVID-19 declaration justifying emergency of IVDs, unless it is terminated or revoked by the FDA (after which the test may no longer be used). Performed By: #### C BC #### [facility] [address] [place] [address] Dr. Con Santana INFLUENZA A AND B AGon 02-14 INFLUANEGH SEE BELOW Normal [facility] Comment on above: Result Comment: Nega tive for Flu A protein angiten. Infection due to Flu A cannot be ruled out. Flu A angiten in the sample may be below the detection limit of the test. Performed By: #### C BC #### [facility] [address] [place] [address] Dr. Con Santana [facility] SEE BELOW Normal [facility] Comment on above: Result Comment: Nega tive for Flu B protein antigen. Infection due to Flu B cannot be ruled out. Flu B antigen in the sample may be below the detection limit of the test. Performed By: #### C BC #### [facility] [address] [place] [address] Dr. Con Santana INFLUENZA A AG Negative Normal NEGATIVE SEE COMMENT [facility] Comment on above: Performed By: #### C BC #### [facility] [address] [place] [address] Dr. Con Santana INFLUENZA B AG Negative Normal NEGATIVE SEE COMMENT [facility] Comment on above: Performed By: #### C BC #### [facility] [address] [place] [address] Dr. Con Santana INTERNAL CONTROLS Within Normal Limits Normal Wi thin Normal Limits [facility] Comment on above: Performed By: #### C BC #### [facility] [address] [place] [address] Dr. Con Santana PROF 14(COMP METB)on 022 Albumin [Mass/Vol] 3.1 g/dL Critically low 3.4-5.0 [facility] Comment on above: Performed By: #### H STROPN #### [facility] [address] [place] [address] Dr. Con Santana Albumin/Globulin [Mass ratio] 1.0 {ratio} Normal [facility] Comment on above: Performed By: #### H STROPN #### [facility] [address] [place] [address] Dr. Con Santana ALP [Catalytic activity/Vol] 88 U/L Normal 46-116 [facility] Comment on above: Performed By: #### H STROPN #### [facility] [address] [place] [address] Dr. Con Santana ALT [Catalytic activity/Vol] 26 U/L Normal 14-59 [facility] Comment on above: Performed By: #### H STROPN #### [facility] [address] [place] [address] Dr. Con Santana Anion gap [Moles/Vol] 11.2 mmol/L Normal [facility] Comment on above: Performed By: #### H STROPN #### [facility] [address] [address] [address] Con Santana AST [Catalytic activity/Vol] 24 U/L Normal 15-37 [facility] Comment on above: Performed By: #### H STROPN #### [facility] [address] [address] [address] Con Santana Bilirubin [Mass/Vol] 0.6 mg/dL Normal 0.2-1.0 [facility] Comment on above: Performed By: #### H STROPN #### [facility] [address] [place] [address] Dr. Con Santana Calcium [Mass/Vol] 8.4 mg/dL Critically low 8.5-10.1 Th [facility] Comment on above: Performed By: #### H STROPN #### [facility] [address] [place] [address] Dr. Con Santana Chloride [Moles/Vol] 106 mmol/L Normal 98-107 [facility] Comment on above: Performed By: #### H STROPN #### [facility] [address] [address] [address] Con Santana CO2 [Moles/Vol] 27.0 mmol/L Normal 21.0-32.0 [facility] Comment on above: Performed By: #### H STROPN #### [facility] [address] [place] [address] Dr. Con Santana Creatinine [Mass/Vol] 0.71 mg/dL Normal 0.55-1.02 [facility] Comment on above: Performed By: #### H STROPN #### [facility] [address] [place] [address] Dr. Con Santana EGFR-AF BOTSWANAN >60 Normal >=60 [facility] Comment on above: Performed By: #### H STROPN #### [facility] [address] [address] [address] Con Santana EGFR-NON AF BOTSWANAN >60 Normal >=60 [facility] Comment on above: Performed By: #### H STROPN #### [facility] [address] [address] [address] Con Santana Globulin (S) [Mass/Vol] 3.1 g/dL Normal [facility] Comment on above: Performed By: #### H STROPN #### [facility] [address] [address] [address] Con Santana Glucose [Mass/Vol] 104 mg/dL Normal 74-106 [facility] Comment on above: Performed By: #### H STROPN #### [facility] [address] [address] [address] Con Santana Potassium [Moles/Vol] 3.2 mmol/L Critically low 3.5-5.1 [facility] Comment on above: Performed By: #### H STROPN #### [facility] [address] [address] [address] Con Santana Protein [Mass/Vol] 6.2 g/dL Critically low 6.4-8.2 Th [facility] Comment on above: Performed By: #### H STROPN #### [facility] [address] [address] [address] Con Santana Sodium [Moles/Vol] 141 mmol/L Normal 136-145 [facility] Comment on above: Performed By: #### H STROPN #### [facility] [address] [address] [address] Con Santana Urea nitrogen [Mass/Vol] 13.0 mg/dL Normal 7.0-18.0 [facility] Comment on above: Performed By: #### H STROPN #### [facility] [address] [address] [address] Con Santana Urea nitrogen/Creatinine [Mass ratio] 18.3 mg/mg Normal [facility] Comment on above: Performed By: #### H STROPN #### [facility] [address] [place], [place] [address] Dr. Con Santana TROPONIN, HIGH SENSITIVITYon 02-14-2022 HSTROP 20.9 pg/mL Normal 4.0-51.3 [facility] Comment on above: Result Comment: CUT- OFF POINTS HAVE BEEN ESTABLISHED BASED ON THE FOURTH UNIVERSAL DEFINITIONS OF MYOCARDIAL INFARCTION. THE UPPER REFERENCE LIMIT (URL) OF TROPONIN, DEFINED THE 99TH PERCENTILE OF cTnI DISTRIBUTION IN A REFERENCE POPULATION, HAS BEEN CONFIRMED THE DECISION THRESHOLD FOR PA DIAGNOSIS. Performed By: #### E RUR, UMICRO #### [facility] [address] [place], [place] [address] Dr. Con Santana XR CHEST 1 Von 02-14-2022 XR CHEST 1 V EXAM: Portable chest REASON FOR EXAM: Shortness of breath. TECHNIQUE: A portable frontal view of the chest was obtained. COMPARISON: 03/27/2021. FINDINGS: Exam is limited due to positioning and body habitus. The lungs are hyperinflated and grossly clear. The heart and mediastinum are normal. There is no mass or pathologic adenopathy. There is kyphosis and old healed fracture of the proximal right humerus. Osseous structures are otherwise grossly normal. IMPRESSION: Limited but grossly negative for an acute cardiopulmonary process. Electronically authenticated by: KAROL VARELA Date: 2022-02-14 09:36 Normal [facility] XR chest 2V*on 01-15-2019 XR chest 2V* [facility] [place] [address] [place] [address] XRay Report Signed Patient: Salome Dominguez MR#: [id number] : 1940 Acct:[id number] Age/Sex: 78 / F ADM Date: 01/15/19 Loc: XDUCLY Room: Type: [facility] Attending Dr: Jack JAMES Ordering Provider: Jack Sanches Date of Service: 01/15/19 XR/XR chest 2V*: Shortness of breath Copies to: Jack Sanches XR chest 2V* 01/15/2019 11:37 AM SIGNS AND SYMPTOMS: Shortness of breath PROTOCOL: Frontal and lateral radiographs of the chest COMPARISON: None FINDINGS: The trachea is midline. The heart and mediastinal structures are within normal limits. The lung parenchyma is clear. There is mild chronic diffuse interstitial prominence. The bony thorax is intact. XR/XR chest 2V* IMPRESSION: No acute cardiopulmonary pathology. Impression dictated by: Maximiliano Campos M.D.01/15/2019 11:38 AM Dictation Location: [facility] Transcribed By: RONNIE 01/15/19 1138 Dictated By: Maximiliano Campos II, MD 01/15/19 1137 Signed By: 01/15/19 1138 [facility] XR SHOULDER RIGHT TRAUMA SER IESon 08-21-2017 XR SHOULDER RIGHT TRAUMA SERIES 08/21/2017 5:37 PMXR SHOULDER RIGHT TRAUMA SERIESINDICATION: Fall.COMPARISON: None availableFINDINGS: 2 views the right shoulder. Comminuted fracture of the humerus involving the greater tuberosity and surgical neck. Humeral head remains articulate with the glenoid.IMPRESSION: Proximal humerus fracture.Workstation ID:[id number]; right arm injury. Best images possible. Normal [facility] Vital Signs Date Time Vital Sign Value Performing Clinician Facility 10-12-2023 11:00-0500 Body height 158.75 cm Effie Jackman Other [facility] Other 10-12-2023 11:00-0500 Body mass index (BMI) [Ratio] 18.18 kg/m2 Effie Jackman Other [facility] Other 10-12-2023 11:00-0500 Body weight 45.81 kg Effie Jackman Other [facility] Other 10-12-2023 11:00-0500 Diastolic blood pressure 64 mm[Hg] Effie Jackman Other [facility] Other 10-12-2023 11:00-0500 SaO2% (BldA) [Mass fraction] 97 % Effie Jackman Other [facility] Other 10-12-2023 11:00-0500 Systolic blood pressure 118 mm[Hg] Effie Jackman Other [facility] Other Encounters Encounter Date Encounter Type Care Provider Facility Start: 10-16-2023 End: 10-16-2023 ambulatory Effie Jackman Other [facility] Other Start: 10-16-2023 Telephone encounter Effie Jackman [facility] Start: 10-15-2023 End: 10-15-2023 ambulatory Effie Jackman Other [facility] Other Start: 10-15-2023 Telephone encounter Effie Jackman [facility] Start: 10-12-2023 End: 10-12-2023 ambulatory NICHOLAS MISHRAMISebas Not Available Start: 10-12-2023 Office outpatient visit 25 minutes Effie Jackman [facility] Start: 10-12-2023 Telephone encounter Effie Jackman [facility] Start: 10-01-2023 End: 10-01-2023 ambulatory MICHAELA Lewis DYLAN Not Available Start: 08-05-2023 End: 08-05-2023 ambulatory Effie Jackman Other [facility] Other Start: 08-05-2023 Telephone encounter Effie Jackman [facility] Start: 05-14-2023 End: 05-14-2023 ambulatory Effie Jackman Other [facility] Other Start: 05-14-2023 Telephone encounter Effie Jackman [facility] Start: 03-30-2023 End: 03-30-2023 ambulatory Effie Jackman Other [facility] Other Start: 03-30-2023 Telephone encounter Effie Jackman [facility] Start: 03-27-2023 End: 03-27-2023 ambulatory Effie Augustina Other [facility] Other Start: 03-27-2023 Telephone encounter Effie Jackman [facility] Start: 12-29-2022 End: 01-01-2023 Evaluation and management of inpatient DR JANI MORENO Facility:[facility] Start: 12-22-2022 End: 12-22-2022 Evaluation and management of inpatient DR JANI MORENO Facility:[facility] Start: 07-10-2022 End: 07-11-[address] JANI MORENO Facility:[facility] Start: 02-14-2022 End: 02-14-[address] JANI MORENO Facility:[facility] Start: 01-15-2019 End: 01-15-2019 Patient encounter procedure Jack Snaches Facility:[facility] Start: 11-20-2017 End: 11-21-2017 Ambulatory DEFAULT PHYSICIAN Facility:[facility] Start: 08-21-2017 End: 08-21-2017 Emergency department [facility] Start: 05-07-2017 End: 05-08-2017 Ambulatory DANIELLE COFFMAN Facility:[facility] Immunizations Immunization Date Immunization Notes Care Provider Roberta webb 07-03-2023 influenza, high dose seasonal, preservative-free Effie Jackman Other [facility] Other Payers Date Payer Category Payer Unknown [id number] 2017 Self-pay 2003 Medicare [id number] 1959 Unknown [id number] 1940 Unknown [id number] 2.16.84 [id number] 1940 Unknown [id number] 2.16.84 [id number] 1940 Unknown [id number] 2.16.84 [id number] 1940 Unknown [id number] 2.16.84 [id number] 1938 Unknown [id number] 2.16.84 [id number] 1940 Unknown [id number] Medicare [id number] Unknown Unknown [id number] 2.16.84 [id number] Social History Date Type Detail Facility Unknown if ever smoked [facility] Other Sex Assigned At Sex Assigned At Bir th [facility] Other Evaluation note 10-16-2023 Note Date & Type Note Facility 10-16-2023 Evaluation note Encounter Date Diagnosis Assessment Notes Sep, Hypokalemia (ICD-10 - E87.6) [facility] Other Evaluation note 10-15-2023 Note Date & Type Note Facility 10-15-2023 Evaluation note Encounter Date Diagnosis Assessment Notes Sep, Other symptoms and signs involving appearance and behavior (ICD-10 - R46.89) [facility] Other Evaluation note 10-12-2023 Note Date & Type Note Facility 10-12-2023 Evaluation note Encounter Date Diagnosis Assessment Notes Sep, Other symptoms and signs involving cognitive functions and awareness (ICD-10 - R41.89) >30 min discussion - reviewed observations typed letter provided by family. She has a bladder scanner implant - she is unable to have MRIs. CT head ordered. Pt and family agree to Neurology referral to assess her status and provide a capacity evaluation to facilitate them making medical decisions for her, specifically placement in a nursing facility. Sep, Other symptoms and signs involving appearance and behavior (ICD-10 - R46.89) Sep, Weight loss, unintentional (ICD-10 - R63.4) Pt has not been taking creon and doesn't eat regularly Pt reinforced to take med as prescribed. [facility] Other Evaluation note 08-05-2023 Note Date & Type Note Facility 08-05-2023 Evaluation note Encounter Date Diagnosis Assessment Notes Jul, Restless leg syndrome (ICD-10 - G25.81) [facility] Other Evaluation note 05-14-2023 Note Date & Type Note Facility 05-14-2023 Evaluation note Encounter Date Diagnosis Assessment Notes Apr, Chronic diarrhea (ICD-10 - K52.9) [facility] Other Evaluation note 03-27-2023 Note Date & Type Note Facility 03-27-2023 Evaluation note Encounter Date Diagnosis Assessment Notes Feb, Moderate persistent asthma without complication (ICD-10 - J45.40) [facility] Other Evaluation note Note Date & Type Note Facility Evaluation note No Information [facility] Other History general Narrative - Reported Note Date & Type Note Facility History general Narrative - Reported Type Medical History Atrial fibrillation Medical History asthma Medical History arthritia Medical History insomnia Surgical History cholecystectomy Surgical History hysterectomy Surgical History appendectomy Surgical History bowel surgery Surgical History surgery on L fourth toe 08/2016 Hospitalization History pneumonia [facility] Other History general Narrative - Reported Note Date & Type Note Facility History general Narrative - Reported Type Medical History Atrial fibrillation Medical History asthma Medical History arthritia Medical History insomnia Medical History Bladder stimulator Surgical History cholecystectomy Surgical History hysterectomy Surgical History appendectomy Surgical History bowel surgery Surgical History surgery on L fourth toe 08/2016 Hospitalization History pneumonia [facility] Other Summary Purpose Family History No Family History Records FoundNo Family History Records FoundNo Family History Records FoundNo Family History Records FoundNo Family History Records FoundNo Family History Records Found Advance Directives No Advanced Directives Records FoundNo Advanced Directives Records FoundNo Advanced Directives Records FoundNo Advanced Directives Records FoundNo Advanced Directives Records FoundNo Advanced Directives Records Found Reason for Referral Reason [place] office - Do cuments scanned from family. CT brain pending. Behavioral and safety concerns. Notes from family scanned into chart Diagnosis 1 Other symptoms and s igns involving cognitive functions and awareness (R41.89) Referral Organization [facility] Referring Provider First Name Effie Referring Provider Last Name Augustina Referring Provider Specialty Family [facility] Referred Organization [facility] Referred Address [address] [place], [place],[address] Referred Provider Specialty Neurology Referral Priority Routine Additional Source Comments INFORMATION SOURCE (unrecogn ized section and content) DATE CREATED AUTHOR 03/19/2018 [facility] DATE CREATED AUTHOR AUTHOR'S ORGANIZ ATION 03/24/2018 [facility] DATE CREATED AUTHOR AUTHOR'S ORGANIZ ATION 04/22/2018 [facility] DATE CREATED AUTHOR AUTHOR'S ORGANIZ ATION 01/16/2019 [facility] DATE CREATED AUTHOR AUTHOR'S ORGANIZ ATION 01/03/2023 [facility] DATE CREATED AUTHOR AUTHOR'S ORGANIZ ATION 10/13/2023 [facility] EPIC REASON FOR VISIT (unrecogniz ed section and content) messagescriptRefillrefillChe ck Up-Sleeping All DayCheck Up-Sleeping All DayNo InformationCT ScanCT FOR RECORDS PERTAINING TO PATIENTS WHO ARE OR HAVE BEEN ENROLLED IN A CHEMICAL DEPENDENCY/SUBSTANCEABUSE PROGRAM, SOME INFORMATION MAY BE OMITTED. This clinical summary was aggregated from multiple sources. Caution should be exercised in using it in the provision of clinical care. This summary normalizes information from multiple sources, and as a consequence, information in this document may materially change the coding, format and clinical context of patient data. In addition, data may be omitted in some cases. CLINICAL DECISIONS SHOULD BE BASED ON THE PRIMARY CLINICAL RECORDS. [facility]. provides no warranty or guarantee of the accuracy or completeness of information in this document.
--- NOTE | 2023-10-23 13:50 | CT_ITS ---
The [address] [address] Patient Name: CECELIA VILLALPANDO MRN: [id number] date: 1940 Sex: F Assigned Patient Location: LAB Current Patient Location: LAB Accession/Order Number: [id number] Exam Date: 10/23/2023 14:10 Report Date: 10/23/2023 16:20 At the request of: BRIAN PAYTON Procedure: CT head/brain wo/w con EXAM: CT head/brain wo/w con HISTORY: Other Symptoms And Signs Involving Cognitive Functions COMPARISON: CT IAC 08/31/2023, CT brain 01/28/2019. TECHNIQUE: Axial CT scans through the head were obtained without IV contrast administration. Dose reduction techniques were achieved by using: automated exposure control and/or adjustment of mA and /or kV according to patient size and/or use of iterative reconstruction technique. FINDINGS: There is no evidence of acute intracranial hemorrhage or abnormal extra-axial fluid collection. No mass effect or midline shift is seen. There is no evidence of large acute territorial infarction. There is no hydrocephalus. Mild to moderate enlarged ventricles and sulci, consistent with age appropriate cerebral atrophy. Mild low-attenuation patchy areas are present in supratentorial white matter, likely represents chronic microvascular ischemia. There are atherosclerotic calcifications of bilateral cavernous carotid arteries. To the limit of CT, the posterior fossa appears unremarkable. No definite acute fracture is identified. Soft tissues are unremarkable. The visualized orbits show no abnormality. There are partial opacifications of right frontal and right hypoplastic sphenoid sinus with frothy secretions. There are additional partial opacification of right-sided ethmoid air cells. There are near complete opacification of bilateral mastoid air cells. CT/CT head/brain wo/w con IMPRESSION: No CT evidence of acute intracranial abnormality. Mild chronic microvascular ischemia and involutional changes. Partial opacifications of right frontal and right sphenoid sinus with frothy secretions. Recommend clinical correlation for acute sinusitis. Opacification of bilateral mastoid air cells, likely represent mastoid effusion and/or mastoiditis. Electronically authenticated by: BRIANNE UNLU Date: 10/23/2023 16:20
[2023-10-23 13:56] LABS: Anion Gap 13.2; BUN Creatinine Ratio 19.1; Calcium 8.1 mg/dL (8.5-10.1); Chloride 110 mmol/L (98-107); Estimated GFR (African America >60 (>=60); Estimated GFR (Non-African Ame >60 (>=60); Glucose 98 mg/dL (74-106); Potassium 3.2 mmol/L (3.5-5.1); Sodium 141 mmol/L (136-145)
== END 2023-10-23 13:31 | disposition home or self-care (01) ==
PROVIDERS: PCP Family Medicine; Visit Provider Family Medicine
DX: E87.6 Hypokalemia (principal); R41.89 Other symptoms and signs involving cognitive functions and awareness; I67.2 Cerebral atherosclerosis
CPT/HCPCS: 36415; 70470; 80048; Q9967

== ENCOUNTER 2023-12-23 13:34 | Outpatient (OUT) | payer MEDICARE, OTHER, SELFPAY ==
[2023-12-23 15:33] LABS: Thyroid Stimulating Hormone 9.376 uIU/mL (0.358-3.740)
[2023-12-28 15:08] LABS: Methylmalonic Acid, Serum 1690 nmol/L (0-378)
== END 2023-12-23 13:35 | disposition home or self-care (01) ==
LOC: LAB 13:38
PROVIDERS: PCP Family Medicine; Visit Provider Psychiatry & Neurology Neurology
DX: Z79.899 Other long term (current) drug therapy (principal)
CPT/HCPCS: 36415; 82607; 83921; 84443

== ENCOUNTER 2024-02-11 13:37 | Emergency (ER) | payer MEDICARE, OTHER, SELFPAY ==
[2024-02-11 13:46] VITALS: BP 152/55; PULSE 50; TEMP 36.5; O2SAT 98; BMI 17.1
--- NOTE | 2024-02-11 13:51 | ECG_ITS ---
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
--- NOTE | 2024-02-11 13:51 | XR_ITS ---
The [address] [address] Patient Name: CECELIA VILLALPANDO MRN: [id number] date: 1940 Sex: F Assigned Patient Location: ER Current Patient Location: ER Accession/Order Number: [id number] Exam Date: 02/11/2024 14:10 Report Date: 02/11/2024 14:33 At the request of: MARSHALL ROACH Procedure: XR chest 1V EXAM: XR chest 1V at 1411 hours HISTORY: Shortness of breath COMPARISON: 09/22/2023 TECHNIQUE: AP upright portable chest x-ray FINDINGS: The heart is not enlarged and the vasculature is not distended. The lungs appear overexpanded. No acute infiltrate, effusion or pneumothorax is identified. The osseous structures are grossly intact. XR/XR chest 1V IMPRESSION: No acute infiltrate or evidence of cardiac decompensation. The overall appearance of the chest is essentially unchanged. Electronically authenticated by: VENKAT KNIGHT Date: 02/11/2024 14:33
--- NOTE | 2024-02-11 13:52 | ED.SOB1 ---
HPI - SOB/Dyspnea General Chief Complaint: Shortness of Breath/Dyspnea Stated Complaint: SOB Time Seen by Provider: 02/11/24 13:38 Source: patient and family Mode of arrival: Wheelchair Limitations: other Limitations comment: [place] History of Present Illness HPI Narrative: Patient is an 83-year-old female who presents to the emergency department with her for increasing shortness of breath today. Patient and her are very poor historians, states that the patient has had difficulty breathing for many years. Patient states this is an ongoing problem. She picked up an inhaler from her PCP office today. states that she just seemed to be more short of breath today. Patient is sitting, resting comfortably and breathing easily at initial interview. She denies to me that she has had any chest pain, she apparently told nursing staff that she had chest pain several days ago but denies any active chest pain. She has not had any fevers, vomiting or leg swelling. Patient is hard of hearing. No medications taken prior to arrival. She states she has been told that she has COPD in the past. Related Data Home Medications ?Medication ?Instructions ?Recorded ?Confirmed albuterol sulfate 90 mcg/actuation 2 puff inhalation DAILY 02/11/24 02/11/24 aerosol inhaler cyanocobalamin (vitamin B-12) 1,000 mcg PO .monthly 02/11/24 02/11/24 1,000 mcg tablet (Vitamin B-12) levothyroxine 75 mcg tablet 75 mcg PO DAILY 02/11/24 02/11/24 uldsgo-[id number]-[id number] 1 cap PO TID 02/11/24 02/11/24 3,000-9,500-15,000 unit capsule, delayed rel (Creon) Previous Rx's ?Medication ?Instructions ?Recorded azithromycin 250 mg tablet See Rx Instructions PO .COMPLEX #6 02/11/24 (Zithromax Z-Mohinder) tabs methylprednisolone 4 mg tablets in See Rx Instructions .Route 02/11/24 a dose pack (Medrol (Mohinder)) .COMPLEX #21 ea Allergies Allergy/AdvReac Type Severity Reaction Status Date / Time psyllium [From Metamucil] Allergy Severe Hives Verified 09/22/23 16:18 Review of Systems ROS Constitutional Denies: fever or chills Ears, nose, mouth, and throat Denies: throat pain or nasal congestion Cardiovascular Denies: chest pain Respiratory Reports: shortness of breath and cough; Denies: change in phlegm color or coughing up blood Gastrointestinal Denies: nausea or vomiting Musculoskeletal Denies: back pain Integumentary/Breast Denies: rash Hematologic/Lymphatic Denies: easy bruising or easy bleeding [facility] Social History Smoking status: Never smoker Exam Narrative Exam Narrative: Gen.: Awake, alert, in no distress Head: Normocephalic, atraumatic ENT: Moist mucous membranes Respiratory: No respiratory distress, Expiratory wheezing in the left upper lobe Cardio: Regular rate and rhythm Extremities: Moves extremities equally, no pedal edema Psych: Normal mood and affect Neuro: No focal neuro deficit Skin: Warm, dry, intact Constitutional Vital Signs, click to edit/add: Last Vital Signs Temp 97.7 F 02/11/24 13:46 Pulse 47 L 02/11/24 14:04 Resp 20 02/11/24 14:04 BP 152/55 H 02/11/24 13:46 Pulse Ox 100 02/11/24 14:04 O2 Del Method Room Air 02/11/24 14:04 Course Vital Signs Vital signs: Vital Signs Temperature 97.7 F 02/11/24 13:46 Pulse Rate 50 L 02/11/24 13:46 Respiratory Rate 18 02/11/24 13:46 Blood Pressure 152/55 H 02/11/24 13:46 Pulse Oximetry 98 02/11/24 13:46 Oxygen Delivery Method Room Air 02/11/24 13:46 Temperature 97.7 F 02/11/24 13:46 Pulse Rate 47 L 02/11/24 14:04 Respiratory Rate 20 02/11/24 14:04 Blood Pressure 152/55 H 02/11/24 13:46 Pulse Oximetry 100 02/11/24 14:04 Oxygen Delivery Method Room Air 02/11/24 14:04 MDM - SOB/Dyspnea MDM Narrative Medical decision making narrative: Given a breathing treatment, IV Solu-Medrol. She maintains pulse oximetry in the emergency department with no hypoxia. She is sleeping comfortably on my reevaluation. Lab studies including troponin are within normal limits. Patient has no active chest pain in the emergency department and has not had any today. She has no peripheral edema, negative chest xray and BNP is elevated although previously, her BNP has run from 2803-3556. She is encouraged to use her inhaler, take steroids for COPD exacerbation and follow-up with PCP. Return to the ER if symptoms change or worsen. Medical Records Attestation: I reviewed the patient's medical records. Lab Data Attestation: I reviewed the patient's lab results. Labs: Lab Results 02/11/24 Range/Units 13:58 WBC 4.6 (4.0-11.0) 10^3/uL RBC 3.36 L (4.20-5.40) 10^6/uL Hgb 10.3 L (12.0-16.0) g/dL Hct 32.3 L (36.0-48.0) % MCV 96.1 (81.0-99.0) fL MCH 30.7 (26.7-34.0) pg MCHC 31.9 (29.9-35.2) g/dL RDW 15.1 H (11.0-15.0) % Plt Count 240 (150-450) 10^3/uL MPV 10.4 (9.5-13.5) fL Neut % (Auto) 34.4 L (43.0-75.0) % Lymph % (Auto) 43.3 (20.5-60.0) % Harlan % (Auto) 7.9 (1.7-12.0) % Eos % (Auto) 13.1 H (0.9-7.0) % Baso % (Auto) 1.1 (0.2-2.0) % Neut # (Auto) 1.6 (1.4-6.5) 10^3/uL Lymph # (Auto) 2.0 (1.2-3.8) 10^3/uL Harlan # (Auto) 0.4 (0.3-0.8) 10^3/uL Eos # (Auto) 0.6 (0.0-0.7) 10^3/uL Baso # (Auto) 0.1 (0.0-0.1) 10^3/uL Abs Immat Gran (auto) 0.01 (0.00-0.03) 10^3/uL Imm/Tot Granulo (auto) 0.2 (0.0-0.5) % PT 12.0 H (9.0-11.6) sec INR 1.15 Sodium 142 (136-145) mmol/L Potassium 3.1 L (3.5-5.1) mmol/L Chloride 110 H (98-107) mmol/L Carbon Dioxide 20.0 L (21.0-32.0) mmol/L Anion Gap 15.1 BUN 26.0 H (7.0-18.0) mg/dL Creatinine 0.80 (0.55-1.02) mg/dL Est GFR ( Amer) >60 (>=60) Est GFR (Non-Af Amer) >60 (>=60) BUN/Creatinine Ratio 32.5 Glucose 97 (74-106) mg/dL Calcium 7.4 L (8.5-10.1) mg/dL Total Bilirubin 0.4 (0.2-1.0) mg/dL AST 18 (15-37) U/L ALT 16 (14-59) U/L Alkaline Phosphatase 87 (46-116) U/L Troponin I High Sens 19.9 (4.0-51.3) pg/mL NT-Pro-B Natriuret Pep 5432.0 H* (<=1800.0) pg/mL Total Protein 5.8 L (6.4-8.2) g/dL Albumin 2.8 L (3.4-5.0) g/dL Globulin 3.0 g/dL Albumin/Globulin Ratio 0.9 Imaging Data Chest x-ray: Attestation: I have reviewed the pertinent imaging results. Radiologist's impression: ITS Impressions Chest X-Ray 02/11/24 13:51 IMPRESSION: No acute infiltrate or evidence of cardiac decompensation. The overall appearance of the chest is essentially unchanged. Electronically authenticated by: VENKAT KNIGHT Date: 02/11/2024 14:33 ECG Data Attestation: I personally reviewed and interpreted this ECG as follows: (Sinus bradycardia at a rate of 49, first-degree AV block with right bundle branch block, no acute ST elevation. No ectopy. EKG reviewed by attending physician.) ECG interpretation date: 02/11/24 ECG interpretation time: 14:11 Discharge Plan Discharge Stand Alone Forms: Portal Instructions Chief Complaint: Shortness of Breath/Dyspnea Clinical Impression: COPD exacerbation Patient Disposition: Home, Self-Care Time of Disposition Decision: 15:11 Condition: Good Prescriptions / Home Meds: New azithromycin [Zithromax Z-Mohinder] 250 mg tablet See Rx Instructions .ROUTE .COMPLEX Qty: 6 0RF Rx Instructions: For 250 mg dose pack: take 500 mg today (day 1), then 250 mg for 4 days (days 2-5) methylprednisolone [Medrol (Mohinder)] 4 mg tablets,dose pack See Rx Instructions .ROUTE .COMPLEX Qty: 21 0RF Rx Instructions: Taper as directed No Action Creon 3,000-9,500- 15,000 unit capsule,delayed release(DR/EC) 1 cap PO TID levothyroxine 75 mcg tablet 75 mcg PO DAILY cyanocobalamin (vitamin B-12) [Vitamin B-12] 1,000 mcg tablet 1,000 mcg PO .monthly albuterol sulfate 90 mcg/actuation HFA aerosol inhaler 2 puff INHALATION DAILY Print Language: Georgian Instructions: COPD (Chronic Obstructive Pulmonary Disease) (ED) Referrals: Effie Jackman MD [Primary Care Provider] - 1 week
[2024-02-11 14:04] VITALS: PULSE 47; O2SAT 100
[2024-02-11] MEDS: ALBUTEROL SULFATE 2.5 MG/3 ML VIAL NEB IH (14:04)
[2024-02-11] MEDS: METHYLPREDNISOLONE SOD SUCC PF 125 MG/2 ML VIAL IVP (14:08)
[2024-02-11 14:19] LABS: Basophils Absolute Auto 0.1 10^3/uL (0.0-0.1); Basophils Percent Auto 1.1 % (0.2-2.0); Eosinophils Absolute Auto 0.6 10^3/uL (0.0-0.7); Eosinophils Percent Auto 13.1 % (0.9-7.0); Hematocrit 32.3 % (36.0-48.0); Hemoglobin 10.3 g/dL (12.0-16.0); Immature Granulocytes Abs Auto 0.01 10^3/uL (0.00-0.03); Immature Granulocytes Pct Auto 0.2 % (0.0-0.5); Lymphocytes Percent Auto 43.3 % (20.5-60.0); Mean Corpuscular HGB Conc 31.9 g/dL (29.9-35.2); Mean Corpuscular Hemoglobin 30.7 pg (26.7-34.0); Mean Corpuscular Volume 96.1 fL (81.0-99.0); Mean Platelet Volume 10.4 fL (9.5-13.5); Monocytes Absolute Auto 0.4 10^3/uL (0.3-0.8); Monocytes Percent Auto 7.9 % (1.7-12.0); Neutrophils Absolute Auto 1.6 10^3/uL (1.4-6.5); Neutrophils Percent Auto 34.4 % (43.0-75.0); Platelet Count 240 10^3/uL (150-450); Red Blood Count 3.36 10^6/uL (4.20-5.40); Red Cell Distribution Width 15.1 % (11.0-15.0); White Blood Count 4.6 10^3/uL (4.0-11.0)
[2024-02-11 14:50] LABS: INR 1.15
[2024-02-11 14:51] LABS: Alanine Aminotransferase 16 U/L (14-59); Albumin Globulin Ratio 0.9; Albumin Level 2.8 g/dL (3.4-5.0); Alkaline Phosphatase 87 U/L (46-116); Anion Gap 15.1; Aspartate Amino Transferase 18 U/L (15-37); BUN Creatinine Ratio 32.5; Bilirubin Total 0.4 mg/dL (0.2-1.0); Calcium 7.4 mg/dL (8.5-10.1); Chloride 110 mmol/L (98-107); Estimated GFR (African America >60 (>=60); Estimated GFR (Non-African Ame >60 (>=60); Glucose 97 mg/dL (74-106); Potassium 3.1 mmol/L (3.5-5.1); Sodium 142 mmol/L (136-145); Total Protein 5.8 g/dL (6.4-8.2); Troponin I High Sensitivity 19.9 pg/mL (4.0-51.3)
[2024-02-11 15:13] VITALS: BP 136/53; PULSE 47; O2SAT 98
== END 2024-02-11 15:21 | disposition home or self-care (01) ==
PROVIDERS: Physician Assistant; Emergency Provider Emergency Medicine Emergency Medical Services; PCP Family Medicine
DX: J44.1 Chronic obstructive pulmonary disease with (acute) exacerbation (principal); Z79.899 Other long term (current) drug therapy; Z79.890 Hormone replacement therapy
CPT/HCPCS: 36415; 71045; 80053; 82800; 83880; 84484; 85025; 85610; 93005; 94640; 99285; J2919

== ENCOUNTER 2024-05-10 19:47 | Inpatient (IN) | payer MEDICARE, OTHER, SELFPAY ==
[2024-05-10] VITALS (16 sets, daily range): BP systolic 92–126; BP diastolic 55–92; PULSE 93–105; TEMP 36.7; O2SAT 96–99; BMI 14.7
--- NOTE | 2024-05-10 20:00 | ECG_ITS ---
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
--- OUTSIDE RECORDS SUMMARY | 2024-05-10 20:03 | XMS_ITS | CCD ---
Author Organization [facility] Care Team Providers Care Supervisor Pigment Making Name Role Phone PHYSICIAN, DEFAULT Unavailable Unavailable PHYSICIAN, DEFAULT Unavailable Unavailable DANIELLE COFFMAN Unavailable Unavailable JACK PINA Unavailable Unavailable NONSTAFF, [facility] Unavailable Unavailable Jack Sanches [employer] Admitting UnavailJack Pandey [employer] Attending Unavaila Jani Obando Primary Care Unavailable JOSH, DR DARBY Primary Care Unavailable SHAIKH Joshua MARTINEZ Admitting Unavailable SHAIKH Joshua MARTINEZ Attending Unavailable CHARLIE, DR ELEAZAR Gr Consulting Unavailable YOLANDA Decker, ESME Consulting Unavailable FAPERLA, CHEEMA H Consulting Unavailable BRINA HENRY Consulting Unavailable JOSH, [...] Unavailable MANUEL ., DR NIETO Consulting Unavailable MANUEL ., DR NIETO Admitting Unavailable MANUEL ., DR NIETO Attending Unavailable CHARLIE, DR ELEAZAR Gr Consulting Unavailable DOC ., LELIA OLIVARES Consulting UnavailChayo Decker, ESME Consulting Unavailable TRINI CISNEROS Consulting Unavailable SIVA CROSS Consulting Unavailable MALIK CROSS Consulting Unavailable TEJAS SIDDIQUI Consulting Unavailable Effie Jackman Unavailable MICHAELA RICHARDSON Attending Unavailable NICHOLAS HAYES Attending Unavailable MICHAELA RICHARDSON Attending Unavailable JUANA MCDANIELS Attending Unavailable MIREYA TOLENTINO Attending Unavailable ORLANDO PACHECO Admitting Unavailable PADMINI BILLINGS Attending Unavailable FELICIA MEDINA Referring Unavailable FELICIA MEDINA Referring Unavailable ISSA RICHARDS Referring Unavailable ISSA RICHARDS Referring Unavailable CAMILLE GRIFFIN Referring UnavailPADMINI Hair Attending Unavailable Allergies Allergy Classification Reported Allergen(s) Allergy Type Date of Onset Reaction(s) Facility (2 sources) levoFLOXacin; Translations: [LEVOFLOXACIN] Drug Allergy 08-07-2017 [facility] [place] Repository (3 sources) psyllium; Translations: [PSYLLIUM] Drug Allergy 02-22-2009 [facility] [place] Repository (11 sources) levoFLOXacin Drug Allergy 02-05-2016 hives [facility] Repository (1 source) Penicillin Drug Allergy [facility] Repository (11 sources) Psyllium Drug Allergy 03-03-2013 anaphylaxis [facility] Repository Medications Current Medications Medication Drug Class(es) Dates Sig (Normalized) Sig (Original) Acetaminophen (10 sources) Acetaminophen Active Albuterol (10 sources) beta2-Adrenergic Agonist Albuterol Sulfate HFA Active amylase 94784 unt / lipase 3000 unt / protease 9500 unt delayed release oral capsule (10 sources) take 6159-7427 [IU] by mouth three times daily at mealtime Creon 6103-9090 UNIT as directed Orally tid w meals for 30 days Active 30 actuat fluticasone furoate 0.1 mg/actuat / vilanterol 0.025 mg/actuat dry powder inhaler (10 sources) Corticosteroid, beta2-Adrenergic Agonist Start: 03-27-2023 take [...] day Active rOPINIRole 0.25 mg oral tablet (7 sources) Nonergot Dopamine Agonist take 1 tablet by mouth once daily at bedtime rOPINIRole HCl 0.25 MG 1 tablet 1 to 3 hours before bedtime Orally Once a day for 30 days Active Problems Active Problems Problem Classification Problem Date Documented Da te Episodic/Chronic Abdominal hernia (10 sources) Hiatal hernia; Translations: [Diaphragmatic hernia without obstruction or gangrene] Episodic Abdominal pain (20 sources) Epigastric pain; Translations: [Epigastric pain] Episodic Asthma (20 sources) Unspecified asthma with (acute) exacerbation; Translations: [Exacerbation of asthma] Onset: 2 Chronic Attention-deficit, conduct, and disruptive behavior disorders (3 sources) Other symptoms and signs involving appearance and behavior Episodic Blindness and vision defects (1 source) Unspecified visual loss; Translations: [UNSPECIFIED VISUAL LOSS] Onset: 3 Chronic Cardiac dysrhythmias (3 sources) Unspecified atrial fibrillation; Translations: [Paroxysmal atrial fibrillation] Onset: 3 Chronic Cardiac dysrhythmias (2 sources) Bradycardia, unspecified; Translations: [Bradycardia, unspecified] Onset: 4 Episodic Chronic obstructive pulmonary disease and bronchiectasis (5 sources) Chronic obstructive pulmonary disease with (acute) exacerbation; Translations: [Chronic obstructive pulmonary disease with (acute) lower respiratory infection] Onset: 3 Chronic Complications of surgical procedures or medical care (1 source) Postgastric surgery syndromes; Translations: [POSTGASTRIC SURGERY SYNDROMES] Onset: 3 Episodic Conduction disorders (4 sources) Atrioventricular block, complete; Translations: [Presence of cardiac pacemaker] Onset: 4 Chronic Congestive heart failure; nonhypertensive (1 source) Heart failure, unspecified; Translations: [HEART FAILURE UNSPECIFIED] Onset: 3 Chronic Delirium, dementia, and amnestic and other cognitive disorders (2 sources) Unspecified dementia without behavioral disturbance; Translations: [UNSP DARELL UNS SEV W/O DSTRB ANXTY] Onset: 2 Chronic Esophageal disorders (1 source) Gastro-esophageal reflux disease without esophagitis; Translations: [GERD WITHOUT ESOPHAGITIS] Onset: 3 Chronic Fluid and electrolyte disorders (3 sources) Dehydration; Translations: [Hypokalemia] Onset: 2 Episodic Gastritis and duodenitis (10 sources) Gastritis; Translations: [Gastritis, unspecified, without bleeding] Episodic Heart valve disorders (2 sources) Cardiac murmur, unspecified; Translations: [Cardiac murmur, unspecified] Onset: 4 Episodic Malaise and fatigue (1 source) Weakness; Translations: [WEAKNESS] Onset: 3 Episodic Menopausal disorders (4 sources) Other primary ovarian failure; Translations: [OTHER PRIMARY OVARIAN FAILURE] Onset: 2 Chronic Nausea and vomiting (10 sources) Nausea; Translations: [Nausea] Episodic Noninfectious gastroenteritis (1 source) Noninfective gastroenteritis and colitis, unspecified Episodic Nutritional deficiencies (1 source) Moderate protein-calorie malnutrition; Translations: [MODERATE PROTEIN-CALORIE MLNUTRIT] Onset: 3 Chronic Osteoarthritis (1 source) Unspecified osteoarthritis, unspecified site; Translations: [UNSPECIFIED OSTEOARTHRITIS UNS SITE] Onset: 3 Chronic Osteoporosis (1 source) Age-related osteoporosis without current pathological fracture; Translations: [AGE-REL OSTEOPOR W/O CURR PATH FX] Onset: 3 Chronic Other aftercare (1 source) Other usp (current) drug therapy; Translations: [OTH CARE HOME CURRENT DRUG THERAPY] Onset: 3 Episodic Other connective tissue disease (10 sources) Myofascial pain; Translations: [Myalgia] Episodic Other ear and sense organ disorders (9 sources) Bilateral hearing loss; Translations: [Unspecified hearing loss, bilateral] Chronic Other gastrointestinal disorders (10 sources) Diarrhea; Translations: [Diarrhea, unspecified] Episodic Other hereditary and degenerative nervous system conditions (7 sources) Restless legs; Translations: [Restless legs syndrome] Chronic Other hereditary and degenerative nervous system conditions (1 source) Restless legs syndrome Chronic Other lower respiratory disease (10 sources) Dyspnea; Translations: [Shortness of breath] Episodic Other lower respiratory disease (2 sources) Other forms of dyspnea; Translations: [Other forms of dyspnea] Onset: 4 Episodic Other nervous system disorders (10 sources) Chronic pain; Translations: [Other chronic pain] Chronic Other nervous system disorders (1 source) Unsteadiness on feet; Translations: [UNSTEADINESS ON FEET] Onset: 3 Episodic Other nervous system disorders (2 sources) Other symptoms and signs involving cognitive functions and awareness Episodic Other nutritional; endocrine; and metabolic disorders (1 source) Body mass index (BMI) 19.9 or less, adult; Translations: [BODY MASS INDEX 19.9 OR LESS ADULT] Onset: 3 Episodic Other nutritional; endocrine; and metabolic disorders (2 sources) Abnormal weight loss Episodic Pneumonia (except that caused by tuberculosis or sexually transmitted disease) (3 sources) Pneumonia, unspecified organism; Translations: [PNEUMONIA UNSPECIFIED ORGANISM] Onset: 3 Episodic Residual codes; unclassified (1 source) Sleep disorder, unspecified; Translations: [SLEEP DISORDER UNSPECIFIED] Onset: 3 Episodic Spondylosis; intervertebral disc disorders; other back problems (10 sources) Thoracic back pain; Translations: [Pain in thoracic spine] Episodic Substance-related disorders (10 sources) Continuous opioid dependence; Translations: [Opioid use, unspecified, uncomplicated] Episodic Thyroid disorders (2 sources) Hypothyroidism, unspecified; Translations: [Hypothyroidism, unspecified] Onset: 4 Chronic Unclassified (1 source) Unspecified fracture of upper end of right humerus, initial encounter for closed fracture / S42.201A(ICD-10) Onset: 7 Unclassified (1 source) Unknown / UNK(Unknown) Onset: 7 Unclassified (1 source) Fall / 50085() Onset: 7 Unclassified (1 source) Arm Injury / 15755() Onset: 7 Unclassified (1 source) R06.02 - Shortness of breath; Translations: [R06.02 - Shortness of breath] Onset: 9 Unclassified (1 source) CONTACT W/AND (SUSP) EXPOS COVID-19; Translations: [CONTACT W/AND (SUSP) EXPOS COVID-19] Onset: 3 Urinary tract infections (1 source) Urinary tract infection, site not specified; Translations: [UTI SITE NOT SPECIFIED] Onset: 3 Episodic Past or Other Problems Problem Classification [...] Test Name Value Interpretation Reference Range Facility Office Visiton 04-11-2024 Follow-up visit [id number] Asia Dominguez L 1940 F Date Provider Department Center 04/11/2024 [id number]-VRHOLOPADMINI BILLINGS [facility] Family History Problem Relation Age of Onset Stroke Mother Other Mother No Known Problems Father Family Status - Relation Status Age at Mother Father Level of Service:26143 CO POSTOP FOLLOW UP VISIT RELATED TO ORIGINAL PX Normal [facility] HEMOGLOBIN AND HEMATOCRIT, B LOODon 04-05-2024 Hematocrit (Bld) [Volume fraction] 29.6 % Low 36.0-48.0 [facility] Comment on above: Performed By: #### L [id number] #### [facility] ([facility]) [address] [place] [address] Hemoglobin (Bld) [Mass/Vol] 9.8 g/dL Low 12.0-15.0 [facility] Comment on above: Performed By: #### L [id number] #### [facility] ([facility]) [address] [place] [address] 30on 04-04-2024 30 The patient is Moderately Stable - Low risk of patient condition declining or worsening Problem: Pain - Adult Goal: Verbalizes/displays adequate comfort level or baseline comfort level 04/04/20242057 by Gayla Chavarria RN Outcome: Progressing 04/04/20242057 by Gayla Chavarria RN Outcome: Progressing Problem: Safety - Adult Goal: Free from fall injury Outcome: Progressing Problem: Discharge Planning Goal: Discharge to home or other facility with appropriate resources Outcome: Progressing Problem: Chronic Conditions and Co-morbidities Goal: Patient's chronic conditions and co-morbidity symptoms are monitored and maintained or improved Outcome: Progressing The patient's goals for the shift include comfort The clinical goals for the shift include stable vitals [facility] 30 Daily Case Managemen t Update Multidisciplinary rounds have been completed. Barriers to Discharge: Pending Clinical Course. Admitted with Third degree heart block-Planning PPM implantation today. Planning to Return [place] [facility] [place] independent living with on discharge. Diet: Dietary Orders (From admission, onward) Start Ordered 04/04/24 0001 Diet NPO Diet effective midnight Comments: Sips with medications Question: Reason for NPO: Answer: Operation/Procedure 04/03/24 0744 04/03/24 1233 Special Kitchen Request Once Comments: Grilled cheese on wheat, vanilla ice, fruit cup, 2 diet coke 04/03/24 1235 04/03/24 0824 Special Kitchen Request Once Comments: Zay 2 qatari toast, butter and syrup.turkey sausage, grits with brown sugar and butter, raspberry frisian,orange juice and coffee, cream and sugar 04/03/24 0826 04/02/24 1302 Special Kitchen Request Once Comments: Zay send hot roast beef sandwich, mashed potatoes and gravy, Chicken noodle soup, Ramos pie,diet cola, cottage cheese 04/02/24 1303 Physician Expected Discharge Date: 04/05/2024 Discharge Delays: PT Six Click Score: 23 OT Six Click Score: PT Recommendations: OT Recommendations: New Consults: [facility] 30 The patient is Moderately Stable - Low risk of patient condition declining or worsening The patient's goals for the shift include comfort The clinical goals for the shift include Vss, safety Over the shift, the patient did not make progress toward the following goals. Barriers to progression include na. Recommendations to address these barriers include na. [facility] 30on 04-03-2024 30 The patient is Moderately Stable - Low risk of patient condition declining or worsening The patient's goals for the shift include comfort and rest The clinical goals for the shift include stable VS Over the shift, the patient did not make progress toward the following goals. Barriers to progression include na. Recommendations to address these barriers include na. [facility] 30 The patient is Moderately Stable - Low risk of patient condition declining or worsening The patient's goals for the shift include comfort and rest The clinical goals for the shift include stable VS Over the shift, the patient continues to make progress toward the following goals. [facility] 30on 04-02-2024 30 The patient is Moderately Stable - Low risk of patient condition declining or worsening The patient's goals for the shift include The clinical goals for the shift include vss Over the shift, the patient did not make progress toward the following goals. Barriers to progression include na. Recommendations to address these barriers include na. [facility] 30 The patient is Moderately Stable - Low risk of patient condition declining or worsening The patient's goals for the shift include The clinical goals for the shift include vss Over the shift, the patient continues to make progress toward the following goal. [facility] CONSULTon 04-02-2024 CONSULT --- Attestation signed by Shawna Duffy MD at 04/02/2024 1:11 PM GC: I saw this patient. I personally performed the critical/hernandez portions that determines the level of service. I was directly involved in the management and treatment plan of the patient. I reviewed fellow Dr. Valdez's note and agree with the documentation . Patient with history of dementia. She was admitted with weakness and dyspnea and found to have third-degree heart block with adequate escape junctional rhythm. She will get a pacemaker on Thursday after getting an echo in the morning. Cardiology Consult Note Reason for Consult: heart block, known pt HPI: Salome Dominguez is a 83 y.o. female with history of dementia, paroxysmal A-fib, hypothyroidism was referred from cardiology clinic due to complete heart block the patient went evaluation for lethargy generalized weakness she denies syncope or presyncope, her blood pressure was elevated, no hypotension, she has junctional escape rhythm ranging between 35 and 45, patient is admitted to the hospital for close observation we are considering permanent pacemaker placement on Thursday Cardiology ROS: GENERAL: Denies fever, chills, night sweats, weight loss. CARDIOVASCULAR: Denies chest pain, exertional dyspnea, orthopnea/PND, lower extremity edema, palpitations, lightheadedness/dizzine ss, syncope. RESPIRATORY: Denies SOB, coughing, wheezing GI: Denies abdominal pain, nausea/vomiting. PSYCH: Denies anxiety. Past Medical History She has a past medical history of Abnormal ECG, Alzheimer disease ([facility]), Asthma, Atrial fibrillation ([facility]), Bradycardia, COPD (chronic obstructive pulmonary disease) ([facility]), Dementia ([facility]), Hypothyroidism, and RLS (restless legs syndrome). Surgical History She has a past surgical history that includes Cholecystectomy; Appendectomy; Ankle surgery; Gastric bypass; Cataract extraction; Back surgery; Foot surgery; Hip surgery; Hysterectomy; Mouth surgery; Toe Surgery; and Tonsillectomy. Social History She reports that she has never smoked. She has been exposed to tobacco smoke. She has never used smokeless tobacco. She reports that she does not drink alcohol and does not use drugs. Family History Family History Problem Relation Name Age of Onset Stroke Mother Other (carotid artery stenosis) Mother No Known Problems Father Allergies Psyllium Medications Medications Prior to Admission Medication Sig Dispense Refill Last Dose albuterol 90 mcg/actuation inhaler INHALE 2 PUFFS EVERY 6 HOURS NEEDED FOR SHORTNESS OF BREATH OR WHEEZING Creon 3,000-9,500- 15,000 unit capsule Take 1 capsule by mouth. levothyroxine (Synthroid, Levoxyl) 75 mcg tablet Take 75 mcg by mouth in the morning. Vitamin B-12 1,000 mcg tablet 1,000 mcg 1 (one) time each day. Last Recorded Vitals Patient Vitals for the past 24 hrs: BP Temp Temp src Pulse Resp SpO2 Height Weight 04/02/24 0900 -- -- -- (!) 33 -- -- -- -- 04/02/24 0700 (!) 110/41 -- -- (!) 31 16 98 % -- -- 04/02/24 0513 -- -- -- -- -- -- -- 45.5 kg (100 lb 6.4 oz) 04/02/24 0451 -- -- -- -- -- -- -- 44.4 kg (97 lb 14.2 oz) 04/02/24 0400 91/51 -- -- (!) 31 19 97 % -- -- 04/02/24 0000 143/82 -- -- (!) 32 20 95 % -- -- 04/01/24 2315 (!) 152/47 36.1 ???C (97 ???F) Temporal (!) 34 19 95 % -- -- 04/01/24 2238 (!) 125/48 -- -- (!) 34 21 96 % -- -- 04/01/24 2218 (!) 103/49 -- -- (!) 33 19 98 % -- -- 04/01/24 2139 153/59 -- -- (!) 35 23 100 % -- -- 04/01/24 2108 145/62 -- -- (!) 36 12 99 % -- -- 04/01/24 1927 (!) 152/42 36.6 ???C (97.9 ???F) Oral (!) 34 23 97 % -- -- 04/01/24 1719 148/53 36.4 ???C (97.6 ???F) -- (!) 39 17 100 % 1.676 m (5' 6 ) 45.4 kg (100 lb) Physical Examination: GENERAL: AOx3, in no acute distress. HEAD: Atraumatic, normocephalic. EYES: BONG, EOMI. NECK: No JVD present. CARDIAC: RRR. No murmur, rubs, or gallops. RESPIRATORY: CTAB, no increased effort of breathing. ABDOMEN: Soft, nontender, nondistended. EXTREMITIES: No lower extremity edema, peripheral pulses are 2+ bilaterally. NEURO: No focal deficits Relevant Lab Results @LABRESULTS@ Encounter Date: 04/01/24 ECG 12 lead (Now) Result Value Ventricular Rate 36 Atrial Rate 96 QRS DURATION 142 QT Interval 532 QTC CALCULATION(BAZETT) 411 P [place] 82 R-[place] -60 T Wave [place] 71 Impression Sinus rhythm with complete heart block and Idioventricular rhythm Right bundle branch block Left anterior fascicular block Bifascicular block Anterior infarct , age undetermined Abnormal ECG No previous ECGs available Lab Results Component Value Date TROPONINI 0.04 04/01/2024 No echocardiogram results found for the past 12 months No nuclear medicine results found for the past 12 months Relevant Imaging Results ECG 12 (more content not included)... Normal [facility] APTTon 04-01-2024 ACTIVATED PARTIAL THROMBOPLASTIN TIME IN PPP BY COAGULATION ASSAY 33.9 Seconds Normal 25.0-35.0 [facility] Comment on above: Result Comment: Clin ical significance of the APTT is questionable in the presence of heparin. Performed By: #### L [id number] ####[facility] (BEAKER)[address] [place] [address] B-TYPE NATRIURETIC PEPTIDEon 04-01-2024 Natriuretic peptide B (Bld) [Mass/Vol] 566 pg/mL High 0-100 [facility] Comment on above: Performed By: #### L [id number] #### [facility] ([facility]) [address] [place] [address] BASIC METABOLIC PANELon 07- Anion gap [Moles/Vol] 9 mmol/L Normal 7-20 [facility] Comment on above: Performed By: #### L [id number] ####[facility] ([facility])[address] [place] [address] Calcium [Mass/Vol] 8.0 mg/dL Low 8.6-10.3 [facility] Comment on above: Performed By: #### L [id number] ####[facility] (BEAKER)[address] [place] [address] Chloride [Moles/Vol] 112 mmol/L High 98-107 [facility] Comment on above: Performed By: #### L [id number] ####[facility] (BEAKER)[address] [place] [address] CO2 [Moles/Vol] 18 mmol/L Low 21-31 [facility] Comment on above: Performed By: #### L [id number] ####[facility] (BEAKER)[address] [place] [address] Creatinine [Mass/Vol] 0.83 mg/dL Normal 0.60-1.20 [facility] Comment on above: Performed By: #### L [id number] ####[facility] (BEAKER)[address] [place] [address] GLOMERULAR FILTRATION RATE ML/MIN/1.73 SQ M.PREDICTED 69.0 mL/min/1.73m*2 Normal >60.0 [facility] Comment on above: Result Comment: The [facility]???s estimated glomerular filtration rate (eGFR) will no longer include consideration of race in its calculation. The National Kid[employer] Foundation???s eGFR Task Force developed new recommendations for the estimation of the glomerular filtration rate in the [place] They recommend immediate implementation of the new equation refit without the race variable in all laboratories because the calculation does not include race. In addition to not including race in the calculation and reporting, it included diversity in its development, and has acceptable performance characteristics and potential consequences that do not disproportionately affect any one group of individuals. Performed By: #### L [id number] ####[facility] (BEAKER)[address] [place] [address] Glucose [Mass/Vol] 91 mg/dL Normal 70-100 [facility] Comment on above: Performed By: #### L [id number] ####[facility] (BEAKER)[address] [place] [address] Potassium [Moles/Vol] 4.3 mmol/L Normal 3.5-5.1 [facility] Comment on above: Performed By: #### L [id number] ####[facility] ([facility]ER)[address] [place] [address] Sodium [Moles/Vol] 135 mmol/L Low 136-145 [facility] Comment on above: Performed By: #### L [id number] ####[facility] ([facility])[address] [place] [address] Urea nitrogen [Mass/Vol] 19 mg/dL Normal 7-25 [facility] Comment on above: Performed By: #### L [id number] ####[facility] ([facility])[address] [place] [address] UREA NITROGEN/CREATININE (MASS RATIO) IN SER/PLAS 22.9 Normal [facility] Comment on above: Performed By: #### L [id number] ####[facility] ([facility])[address] [place] [address] CBC WITH AUTO DIFFERENTIALon 04-01-2024 Basophils (Bld) [#/Vol] 0.04 10*3/uL Normal 0.00-0.20 [facility] Comment on above: Performed By: #### L [id number] #### [facility] ([facility]) [address] [place] [address] Basophils/100 WBC (Bld) 1.0 % Normal 0.0-1.0 [facility] Comment on above: Performed By: #### L [id number] #### [facility] ([facility]) [address] [place] [address] Eosinophils (Bld) [#/Vol] 0.56 10*3/uL High 0.00-0.50 [facility] Comment on above: Performed By: #### L [id number] #### [facility] ([facility]) [address] [place] [address] Eosinophils/100 WBC (Bld) 13.9 % High 0.0-6.0 [facility] Comment on above: Performed By: #### L [id number] #### [facility] ([facility]) [address] [place] [address] Erythrocyte distribution width (RBC) [Ratio] 14.2 % Normal 11.5-15.0 [facility] Comment on above: Performed By: #### L [id number] #### [facility] ([facility]AKER) [address] [place] [address] ERYTHROCYTE MEAN CORPUSCULAR HEMOGLOBIN CONCENTRATION (G/DL) BY AUTOMATED 31.3 g/dL Low 32.0-35.0 [facility] Comment on above: Performed By: #### L [id number] #### [facility] ([facility]) [address] [place] [address] Hematocrit (Bld) [Volume fraction] 31.3 % Low 36.0-48.0 [facility] Comment on above: Performed By: #### L [id number] #### [facility] ([facility]) [address] [place] [address] Hemoglobin (Bld) [Mass/Vol] 9.8 g/dL Low 12.0-15.0 [facility] Comment on above: Performed By: #### L [id number] #### [facility] ([facility]) [address] [place] [address] Immature granulocytes (Bld) [#/Vol] 0.00 10*3/uL Normal 0.00-0.20 [facility] Comment on above: Performed By: #### L [id number] #### [facility] ([facility]) [address] [place] [address] Immature granulocytes/100 WBC (Bld) 0.0 % Normal 0.0-1.0 [facility] Comment on above: Performed By: #### L [id number] #### [facility] ([facility]) [address] [place] [address] Lymphocytes (Bld) [#/Vol] 1.85 10*3/uL Normal 1.20-4.00 [facility] Comment on above: Performed By: #### L [id number] #### [facility] ([facility]) [address] [place] [address] Lymphocytes/100 WBC (Bld) 45.9 % High 20.0-45.0 [facility] Comment on above: Performed By: #### L [id number] #### [facility] [address] [place] [address] MCH (RBC) [Entitic mass] 30.9 pg Normal 27.0-33.0 [facility] Comment on above: Performed By: #### L [id number] #### [facility] [address] [place] [address] MCV (RBC) [Entitic vol] 98.7 fL High 82.0-98.0 [facility] Comment on above: Performed By: #### L [id number] #### [facility] ([facility]) [address] [place] [address] Monocytes (Bld) [#/Vol] 0.45 10*3/uL Normal 0.10-1.00 [facility] Comment on above: Performed By: #### L [id number] #### [facility] ([facility]) [address] [place] [address] Monocytes/100 WBC (Bld) 11.2 % Normal 5.0-12.0 [facility] Comment on above: Performed By: #### L [id number] #### [facility] ([facility]) [address] [place] [address] Neutrophils (Bld) [#/Vol] 1.13 10*3/uL Low 1.60-7.60 [facility] Comment on above: Performed By: #### L [id number] #### [facility] [address] [place] [address] Neutrophils/100 WBC (Bld) 28.0 % Low 40.0-72.0 [facility] Comment on above: Performed By: #### L [id number] #### [facility] ([facility] [address] [place] [address] NRBC (PER 100 WBCS) BY AUTOMATED COUNT 0.0 % Normal 0 [facility] Comment on above: Performed By: #### L [id number] #### [facility] ([facility] [address] [place] [address] PLATELETS (10*3/UL) IN BLOOD AUTOMATED COUNT 177 10*3/uL Normal 150-400 [facility] Comment on above: Performed By: #### L [id number] #### [facility] ([facility]) [address] [place] [address] RBC (Bld) [#/Vol] 3.17 10*6/uL Low 3.80-5.[address] [facility] Comment on above: Performed By: #### L [id number] #### [facility] ([facility]) [address] [place] [address] WBC (Bld) [#/Vol] 4.03 10*3/uL Normal 4.00-10.[address] [facility] Comment on above: Performed By: #### L [id number] #### [facility] ([facility]) [address] [place] [address] EDPROVon 04-01-2024 EDPROV --- Attestation signed by Felicia Medina DO at 04/02/2024 3:16 PM 2022 Emergency Medicine Coding Guide from [employer] on 04/02/2024 All calculations should be rechecked by clinician prior to use RESULT SUMMARY: 5 Estimated Level of Service Problems: Moderate (4) Risk: High (5) Data: Extensive (5) NARRATIVE MDM: This patient's problem complexity is Moderate as patient: has a new undiagnosed problem with uncertain prognosis but that could be serious. This patient's risk is High due to: overall presentation requiring evaluation for a potentially High-risk process. This patient's data complexity is Extensive due to: -multiple tests ordered/reviewed -independent interpretation of imaging or EKG -discussion of management/testing with external professional INPUTS: Number and Complexity --> 5 = 4: undiagnosed new problem, uncertain outcome (e) Risk level --> 4 = High Tests ordered --> 3 = ?3 Tests results reviewed (excluding labs) --> 2 = 2 Prior external notes reviewed --> 0 = 0 Assessment requiring and independent historian --> 0 = No Independent interpretation of tests --> 1 = Yes Discussed management/test interpretation w/external professional --> 1 = Yes HPI Chief Complaint Patient presents with Bradycardia Pt sent by [place] [facility]ology for bradycardia. Pt c/o occasional SOB but denies being symptomatic otherwise. HPI 83-year-old female with history of Alzheimer disease, asthma, A-fib, COPD, and hypothyroidism presenting due to concerns of third-degree heart block. Patient evaluated at stoner out office today after patient was found to be bradycardic at neurologist office. Per cardiology patient was in third-degree heart block and sent to be evaluated for possible pacemaker placement. Patient states that she feels tired all the time but denies any other symptoms with it. Ricardo Coma Scale Score: 15 Patient History Past Medical History: Diagnosis Date Abnormal ECG Alzheimer disease ([facility]) Asthma Atrial fibrillation ([facility]) Bradycardia COPD (chronic obstructive pulmonary disease) ([facility]) Dementia ([facility]) Hypothyroidism RLS (restless legs syndrome) Past Surgical History: Procedure Laterality Date ANKLE SURGERY APPENDECTOMY BACK SURGERY CATARACT EXTRACTION CHOLECYSTECTOMY FOOT SURGERY GASTRIC BYPASS HIP SURGERY HYSTERECTOMY MOUTH SURGERY TOE SURGERY TONSILLECTOMY Family History Problem Relation Name Age of Onset Stroke Mother Other (carotid artery stenosis) Mother No Known Problems Father Social History Tobacco Use Smoking status: Never Passive exposure: Past Smokeless tobacco: Never Substance Use Topics Alcohol use: Never Drug use: Never Review of Systems Review of Systems Constitutional: Positive for fatigue. Negative for chills and fever. HENT: Negative for ear pain and sore throat. Eyes: Negative for pain and visual disturbance. Respiratory: Negative for cough and shortness of breath. Cardiovascular: Negative for chest pain and palpitations. Gastrointestinal: Negative for abdominal pain and vomiting. Genitourinary: Negative for dysuria and hematuria. Musculoskeletal: Negative for arthralgias and back pain. Skin: Negative for color change and rash. Neurological: Negative for seizures and syncope. All other systems reviewed and are negative. Physical Exam ED Triage Vitals [04/01/24 1719] Temp Heart Rate Resp BP 36.4 ???C (97.6 ???F) (!) 39 17 148/53 SpO2 Temp src Heart Rate Source Patient Position 100 % -- -- -- BP Location FiO2 (%) -- -- Physical Exam Vitals and nursing note reviewed. Constitutional: General: She is not in acute distress. Appearance: She is well-developed. HENT: Head: Normocephalic and atraumatic. Eyes: Conjunctiva/sclera: Conjunctivae normal. Cardiovascular: Rate and Rhythm: Regular rhythm. Bradycardia present. Heart sounds: No murmur heard. Pulmonary: Effort: Pulmonary effort is normal. No respiratory distress. Breath sounds: Normal breath sounds. Abdominal: Palpations: Abdomen is soft. Tenderness: There is no abdominal tenderness. Musculoskeletal: General: No swelling. Cervical back: Neck supple. Skin: General: Skin is warm and dry. Capillary Refill: Capillary refill takes less than 2 seconds. Neurological: Mental Status: She is alert. Psychiatric: Mood and Affect: Mood normal. Procedures ED Course & MDM ED Course as of 04/01/242002Apr 01, 2024 1903 ECG findings Time: 1843 Rate: 36 Rhythm: 3rd degree block [place]: LAD QRS: 142 CO: n/a Qtc: 411 Other findings: TWI in V3 [TS] ED Course User Index [TS] Felicia Medina DO Diagnoses as of 04/01/242002 Third degree heart block (CMS/HCC) Medical Decision Making Reviewed patie (more content not included)... Normal [facility] Office Visiton 04-01-2024 Follow-up visit [id number] Asia Dominguez 1940 F Date Provider Department Center 04/01/2024 [id number] Family History Problem Relation Age of Onset Stroke Mother Other Mother No Known Problems Father Family Status - Relation Status Age at Mother Father Level of Service:11218 CO OFFICE/OUTPATIENT NEW MODERATE MDM 45 MINUTES Normal [facility] PROTIME-INRon 04-01-2024 INR IN PPP BY COAGULATION ASSAY 1.18 High 0.90-1.10 [facility] Comment on above: Result Comment: [facility] P RECOMMENDED INR FOR WARFARIN THERAPY CONDITION INR PROPHYLAXIS OF VENOUS THROMBOSIS 2-3 (HIGH-RISK SURGERY) TREATMENT OF VENOUS THROMBOSIS 2-3 TREATMENT OF PULMONARY EMBOLISM 2-3 PREVENTION OF SYSTEMIC EMBOLISM: 2-3 ACUTE MYOCARDIAL INFARCTION TISSUE HEART VALVES VALVULAR HEART DISEASE ATRIAL FIBRILLATION RECURRENT SYSTEMIC EMBOLISM MECHANICAL HEART VALVE 2.5-3.5 FROM: ORAL ANTICOAGULANTS. MECHANISM OF ACTION, CLINICAL EFFECTIVENESS, AND OPTIMAL THERAPEUTIC RANGE. CHEST 1995;108:231S-246S. Performed By: #### L [id number] #### [facility] ([place]) [address] [place] [address] PROTHROMBIN TIME (PT) IN PPP BY COAGULATION ASSAY 15.0 Seconds High 12.3-14.8 [facility] Comment on above: Performed By: #### L [id number] #### [facility] ([place]) [address] [place] [address] T4, FREEon 04-01-2024 THYROXINE (T4) FREE (NG/DL) IN SER/PLAS 0.77 ng/dL Normal 0.71-1.85 [facility] Comment on above: Performed By: #### L [id number] ####[facility] ([facility])[address] [place] [address] TROPONIN Ion 04-01-2024 Troponin I.cardiac [Mass/Vol] 0.04 ng/mL Normal 0.00-0.04 [facility] Comment on above: Performed By: #### L [id number] #### [facility] ([facility]) [address] [place] [address] TSH3 REFLEX TO FT4on 024 THYROTROPIN (MIU/L) IN SER/PLAS BY DETECTION LIMIT <= 0.05 MIU/L 6.13 mIU/L High 0.34-5.60 [facility] Comment on above: Performed By: #### L [id number] #### [facility] ([facility] [address] [place] [address] CULTURE URINEon 01-02-2023 CULTURE URINE Isolate 1 Enterococcus faecalis 100,000 cfu/mL of ORGANISM 1 Enterococcus faecalis ANTIBIOTIC M.I.C RX STATUS Beta-Lactamase Neg NEG F Benzylpenicillin 1 S F Ampicillin <=2 S F Gentamicin High Level (synergy) SYN-S S F Streptomycin High Level (synergy) SYN-S S F Ciprofloxacin <=0.5 S F Levofloxacin 0.5 S F Quinupristin/Dalfoprist in 8 R F Linezolid 1 S F Vancomycin 1 S F Tetracycline >=16 R F Nitrofurantoin <=16 S F Normal [facility] Comment on above: Performed By: #### C BC #### [facility] [address] [place] [address] Dr. Con Santana BNPon 01-01-2023 Natriuretic peptide B (Bld) [Mass/Vol] 6147.0 pg/mL Critically high <=1,800.0 [facility] Comment on above: Performed By: #### H STROPN #### [facility] [address] [place] [address] Dr. Con Santana CBC AUTO DIFFon 01-01-2023 BASO # 0.0 103/ul Normal 0.0-0.1 [facility] Comment on above: Performed By: #### C BC #### [facility] [address] [place] [address] Dr. Con Santana Basophils/100 WBC (Bld) 0.2 % Normal 0.2-2.0 [facility] Comment on above: Performed By: #### C BC #### [facility] [address] [address] [address] Con Santana EO # 0.0 103/ul Normal 0.0-0.7 [facility] Comment on above: Performed By: #### C BC #### [facility] [address] [address] [address] Con Santana Eosinophils/100 WBC (Bld) 0.0 % Critically low 0.9-7.0 [facility] Comment on above: Performed By: #### C BC #### [facility] [address] [address] [address] Con Santana Erythrocyte distribution width (RBC) [Ratio] 14.4 % Normal 11.0-15.0 [facility] Comment on above: Performed By: #### C BC #### [facility] [address] [place] [address] Dr. Con Santana Hematocrit (Bld) [Volume fraction] 28.5 % Critically low 36.0-48.0 [facility] Comment on above: Performed By: #### C BC #### [facility] [address] [address] [address] Con Santana Hemoglobin (Bld) [Mass/Vol] 9.1 g/dL Critically low 12.0-16.0 [facility] Comment on above: Performed By: #### C BC #### [facility] [address] [address] [address] Con Santana IG # 0.14 10e3/ul Critically high 0.00-0.03 [facility] Comment on above: Performed By: #### C BC #### [facility] [address] [address] [address] Con Santana IG % 1.1 % Critically high 0.0-0.5 [facility] Comment on above: Performed By: #### C BC #### [facility] [address] [address] [address] Con Santana LYMPH # 0.9 103/ul Critically low 1.2-3.8 [facility] Comment on above: Performed By: #### C BC #### [facility] [address] [address] [address] Con Santana Lymphocytes/100 WBC (Bld) 7.3 % Critically low 20.5-60.0 [facility] Comment on above: Performed By: #### C BC #### [facility] [address] [address] [address] Con Santana MANUAL DIFF REQ NO Normal [facility] Comment on above: Performed By: #### C BC #### [facility] [address] [place] [address] Dr. Con Santana MCH (RBC) [Entitic mass] 31.1 pg Normal 26.7-34.0 [facility] Comment on above: Performed By: #### C BC #### [facility] [address] [place] [address] Dr. Con Santana MCHC (RBC) [Mass/Vol] 31.9 g/dL Normal 29.9-35.2 [facility] Comment on above: Performed By: #### C BC #### [facility] [address] [place] [address] Dr. Con Santana MCV (RBC) [Entitic vol] 97.3 fL Normal 81.0-99.0 [facility] Comment on above: Performed By: #### C BC #### [facility] [address] [place] [address] Dr. Con Santana MONO # 1.3 103/ul Critically high 0.3-0.8 [facility] Comment on above: Performed By: #### C BC #### [facility] [address] [place] [address] Dr. Con Santana Monocytes/100 WBC (Bld) 10.0 % Normal 1.7-12.0 [facility] Comment on above: Performed By: #### C BC #### [facility] [address] [place] [address] Dr. Con Santana NEUT # 10.5 103/ul Critically high 1.4-6.5 [facility] Comment on above: Performed By: #### C BC #### [facility] [address] [address] [address] Con Santana Neutrophils/100 WBC (Bld) 81.4 % Critically high 43.0-75.0 [facility] Comment on above: Performed By: #### C BC #### [facility] [address] [address] [address] Con Santana Platelet mean volume (Bld) [Entitic vol] 10.5 fL Normal 9.5-13.5 [facility] Comment on above: Performed By: #### C BC #### [facility] [address] [address] [address] Con Santana PLT 179 103/ul Normal 150-450 [facility] Comment on above: Performed By: #### C BC #### [facility] [address] [place] [address] Dr. Con Santana RBC 2.93 106/ul Critically low 4.20-5.40 [facility] Comment on above: Performed By: #### C BC #### [facility] [address] [address] [address] Con Santana WBC 12.8 103/ul Critically high 4.0-11.0 [facility] Comment on above: Performed By: #### C BC #### [facility] [address] [address] [address] Con Santana POINT OF CARE GLUCOSEon Glucose [Mass/Vol] 97 mg/dL Normal 74-106 [facility] Comment on above: Performed By: #### C BC #### [facility] [address] [address] [address] Con Santana PROF CHEM 8 (BAS METB)on Anion gap [Moles/Vol] 14.3 mmol/L Normal [facility] Comment on above: Performed By: #### H STROPN #### [facility] [address] [address] [address] Con Santana Calcium [Mass/Vol] 7.2 mg/dL Critically low 8.5-10.1 [facility] Comment on above: Performed By: #### H STROPN #### [facility] [address] [address] [address] Con Santana Chloride [Moles/Vol] 108 mmol/L Critically high 98-107 [facility] Comment on above: Performed By: #### H STROPN #### [facility] [address] [address] [address] Con Santana CO2 [Moles/Vol] 22.6 mmol/L Normal 21.0-32.0 [facility] Comment on above: Performed By: #### H STROPN #### [facility] [address] [address] [address] Con Santana Creatinine [Mass/Vol] 1.08 mg/dL Critically high 0.55-1.02 [facility] Comment on above: Performed By: #### H STROPN #### [facility] [address] [address] [address] Con Santana EGFR-AF MONTENEGRIN 59 mL/min/1.73m2 Critically low >=60 [facility] Comment on above: Performed By: #### H STROPN #### [facility] [address] [address] [address] Con Santana EGFR-NON AF MONTENEGRIN 48 mL/min/1.73m2 Critically low >=60 [facility] Comment on above: Performed By: #### H STROPN #### [facility] [address] [address] [address] Con Santana Glucose [Mass/Vol] 100 mg/dL Normal 74-106 [facility] Comment on above: Performed By: #### H STROPN #### [facility] [address] [address] [address] Con Santana Potassium [Moles/Vol] 3.9 mmol/L Normal 3.5-5.1 [facility] Comment on above: Performed By: #### H STROPN #### [facility] [address] [address] [address] Con Santana Sodium [Moles/Vol] 141 mmol/L Normal 136-145 [facility] Comment on above: Performed By: #### H STROPN #### [facility] [address] [address] [address] Con Santana Urea nitrogen [Mass/Vol] 27.0 mg/dL Critically high 7.0-18.0 [facility] Comment on above: Performed By: #### H STROPN #### [facility] [address] [place] [address] Dr. Con Santana Urea nitrogen/Creatinine [Mass ratio] 25.0 mg/mg Normal [facility] Comment on above: Performed By: #### H STROPN #### [facility] [address] [place] [address] Dr. Con Santana BNPon 12-31-2022 Natriuretic peptide B (Bld) [Mass/Vol] 7148.0 pg/mL Critically high <=1,800.0 [facility] Comment on above: Performed By: #### H STROPN #### [facility] [address] [place] [address] Dr. Con Santana CBC W MANUAL DIFFon 01-01-20 ATYPICAL LYMPH # Normal [facility] Comment on above: Performed By: #### P OCGLUC #### [facility] [address] [place] [address] Dr. Con Santana ATYPICAL LYMPH % Normal [facility] Comment on above: Performed By: #### P OCGLUC #### [facility] [address] [place] [address] Dr. Con Santana BAND # 0.0 103/ul Normal 0.0-0.3 [facility] Comment on above: Performed By: #### P OCGLUC #### [facility] [address] [place] [address] Dr. Con Santana BAND % 0 % Normal 0-5 [facility] Comment on above: Performed By: #### P OCGLUC #### [facility] [address] [place] [address] Dr. Con Santana BASOM # 0.00 103/ul Normal 0.00-0.10 [facility] Comment on above: Performed By: #### P OCGLUC #### [facility] [address] [address] [address] Con Santana BASOM % 0.0 % Critically low 0.2-2.0 [facility] Comment on above: Performed By: #### P OCGLUC #### [facility] [address] [address] [address] Con Santana BLAST # Normal [facility] Comment on above: Performed By: #### P OCGLUC #### [facility] [address] [address] [address] Con Santana BLAST % Normal [facility] Comment on above: Performed By: #### P OCGLUC #### [facility] [address] [address] [address] Con Santana CORRECTED WBC Normal 4.0-11.0 [facility] Comment on above: Performed By: #### P OCGLUC #### [facility] [address] [place] [address] Dr. Con Santana EOS # 0.00 103/ul Normal 0.00-0.70 [facility] Comment on above: Performed By: #### P OCGLUC #### [facility] [address] [place] [address] Dr. Con Santana EOS% 0.0 % Critically low 0.9-7.0 [facility] Comment on above: Performed By: #### P OCGLUC #### [facility] [address] [place] [address] Dr. Con Santana HCT 27.8 % Critically low 36.0-48.0 [facility] Comment on above: Performed By: #### P OCGLUC #### [facility] [address] [address] [address] Con Santana HGB 9.0 g/dl Critically low 12.0-16.0 [facility] Comment on above: Performed By: #### P OCGLUC #### [facility] [address] [place] [address] Dr. Con Santana LYMPHM # 0.53 103/ul Critically low 1.20-3.80 [facility] Comment on above: Performed By: #### P OCGLUC #### [facility] [address] [address] [address] Con Santana LYMPHM% 5.0 % Critically low 20.5-60.0 [facility] Comment on above: Performed By: #### P OCGLUC #### [facility] [address] [address] [address] Con Santana MCH 31.0 pg Normal 26.7-34.0 [facility] Comment on above: Performed By: #### P OCGLUC #### [facility] [address] [address] [address] Con Santana MCHC 32.4 g/dl Normal 29.9-35.2 [facility] Comment on above: Performed By: #### P OCGLUC #### [facility] [address] [address] [address] Cno Santana MCV 95.9 fL Normal 81.0-99.0 [facility] Comment on above: Performed By: #### P OCGLUC #### [facility] [address] [address] [address] Con Santana METAMYELOCYTE # Normal [facility] Comment on above: Performed By: #### P OCGLUC #### [facility] [address] [address] [address] Con Santana METAMYELOCYTE % Normal [facility] Comment on above: Performed By: #### P OCGLUC #### [facility] [address] [address] [address] Con Santana MONOM# 0.11 103/ul Critically low 0.30-0.80 [facility] Comment on above: Performed By: #### P OCGLUC #### [facility] [address] [address] [address] Con Santana MONOM% 1.0 % Critically low 1.7-12.0 [facility] Comment on above: Performed By: #### P OCGLUC #### [facility] [address] [address] [address] Con Santana MPV 10.9 fL Normal 9.5-13.5 [facility] Comment on above: Performed By: #### P OCGLUC #### [facility] [address] [place] [address] Dr. Con Santana MYELOCYTE # Normal [facility] Comment on above: Performed By: #### P OCGLUC #### [facility] [address] [address] [address] Con Santana MYELOCYTE % Normal [facility] Comment on above: Performed By: #### P OCGLUC #### [facility] [address] [place] [address] Dr. Con Santana NRBC Normal [facility] [facility] Comment on above: Performed By: #### P OCGLUC #### [facility] [address] [place] [address] Dr. Con Santana PLT 184 103/ul Normal 150-450 [facility] Comment on above: Performed By: #### P OCGLUC #### [facility] [address] [place] [address] Dr. Con Santana RBC 2.90 106/ul Critically low 4.20-5.40 [facility] Comment on above: Performed By: #### P OCGLUC #### [facility] [address] [place] [address] Dr. Con Santana RDW 14.5 % Normal 11.0-15.0 [facility] Comment on above: Performed By: #### P OCGLUC #### [facility] [address] [address] [address] Con Santana SEG # 9.96 103/ul Critically high 1.40-6.50 [facility] Comment on above: Performed By: #### P OCGLUC #### [facility] [address] [place] [address] Dr. Con Santana SEG % 94.0 % Critically high 43.0-75.0 [facility] Comment on above: Performed By: #### P OCGLUC #### [facility] [address] [place] [address] Dr. Con Santana WBC 10.6 103/ul Normal 4.0-11.0 [facility] Comment on above: Performed By: #### P OCGLUC #### [facility] [address] [place] [address] Dr. Con Santana POINT OF CARE GLUCOSEon Glucose [Mass/Vol] 145 mg/dL Critically high 74-106 [facility] Comment on above: Performed By: #### I NFLUAB #### [facility] [address] [place] [address] Dr. Con Santana Glucose [Mass/Vol] 162 mg/dL Critically high 74-106 [facility] Comment on above: Performed By: #### E LISA JAVIER #### [facility] [address] [place] [address] Dr. Con Santana Glucose [Mass/Vol] 141 mg/dL Critically high 74-106 [facility] Comment on above: Performed By: #### C BC #### [facility] [address] [place] [address] Dr. Con Santana PROF CHEM 8 (BAS METB)on Anion gap [Moles/Vol] 16.5 mmol/L [facility] Comment on above: Performed By: #### H STROPN #### [facility] [address] [place] [address] Dr. Con Santana Calcium [Mass/Vol] 7.3 mg/dL Critically low 8.5-10.1 [facility] Comment on above: Performed By: #### H STROPN #### [facility] [address] [place] [address] Dr. Con Santana Chloride [Moles/Vol] 108 mmol/L Critically high 98-107 [facility] Comment on above: Performed By: #### H STROPN #### [facility] [address] [place] [address] Dr. Con Santana CO2 [Moles/Vol] 18.5 mmol/L Critically low 21.0-32.0 [facility] Comment on above: Performed By: #### H STROPN #### [facility] [address] [address] [address] Con Santana Creatinine [Mass/Vol] 1.14 mg/dL Critically high 0.55-1.02 [facility] Comment on above: Performed By: #### H STROPN #### [facility] [address] [address] [address] Con Santana EGFR-AF MONTENEGRIN 55 mL/min/1.73m2 Critically low >=60 [facility] Comment on above: Performed By: #### H STROPN #### [facility] [address] [address] [address] Con Santana EGFR-NON AF MONTENEGRIN 45 mL/min/1.73m2 Critically low >=60 [facility] Comment on above: Performed By: #### H STROPN #### [facility] [address] [address] [address] Con Santana Glucose [Mass/Vol] 151 mg/dL Critically high 74-106 [facility] Comment on above: Performed By: #### H STROPN #### [facility] [address] [address] [address] Con Santana Potassium [Moles/Vol] 4.0 mmol/L Normal 3.5-5.1 [facility] Comment on above: Performed By: #### H STROPN #### [facility] [address] [address] [address] Con Santana Sodium [Moles/Vol] 139 mmol/L Normal 136-145 [facility] Comment on above: Performed By: #### H STROPN #### [facility] [address] [address] [address] Con Santana Urea nitrogen [Mass/Vol] 27.0 mg/dL Critically high 7.0-18.0 [facility] Comment on above: Performed By: #### H STROPN #### [facility] [address] [address] [address] Con Santana Urea nitrogen/Creatinine [Mass ratio] 23.7 mg/mg Normal [facility] Comment on above: Performed By: #### H STROPN #### [facility] [address] [address] [address] Con Santana XR CHEST 2 Von [...] ELEAZAR GUERRA Date: 2022-12-31 11:27 Normal [facility] BNPon 12-30-2022 Natriuretic peptide B (Bld) [Mass/Vol] 7840.0 pg/mL Critically high <=1,800.0 [facility] Comment on above: Performed By: #### I NFLUAB #### [facility] [address] [place] [address] Dr. Con Santana CBC AUTO DIFFon 12-30-2022 BASO # 0.0 103/ul Normal 0.0-0.1 [facility] Comment on above: Performed By: #### P OCGLUC #### [facility] [address] [place] [address] Dr. Con Santana Basophils/100 WBC (Bld) 0.2 % Normal 0.2-2.0 [facility] Comment on above: Performed By: #### P OCGLUC #### [facility] [address] [place] [address] Dr. Con Santana EO # 0.0 103/ul Normal 0.0-0.7 [facility] Comment on above: Performed By: #### P OCGLUC #### [facility] [address] [place] [address] Dr. Con Santana Eosinophils/100 WBC (Bld) 0.0 % Critically low 0.9-7.0 [facility] Comment on above: Performed By: #### P OCGLUC #### [facility] [address] [address] [address] Con Santana Erythrocyte distribution width (RBC) [Ratio] 13.6 % Normal 11.0-15.0 [facility] Comment on above: Performed By: #### P OCGLUC #### [facility] [address] [address] [address] Con Santana Hematocrit (Bld) [Volume fraction] 28.5 % Critically low 36.0-48.0 [facility] Comment on above: Performed By: #### P OCGLUC #### [facility] [address] [address] [address] Con Santana Hemoglobin (Bld) [Mass/Vol] 9.5 g/dL Critically low 12.0-16.0 [facility] Comment on above: Performed By: #### P OCGLUC #### [facility] [address] [place] [address] Dr. Con Santana IG # 0.09 10e3/ul Critically high 0.00-0.03 [facility] Comment on above: Performed By: #### P OCGLUC #### [facility] [address] [address] [address] Con Santana IG % 0.8 % Critically high 0.0-0.5 [facility] Comment on above: Performed By: #### P OCGLUC #### [facility] [address] [address] [address] Con Santana LYMPH # 0.8 103/ul Critically low 1.2-3.8 [facility] Comment on above: Performed By: #### P OCGLUC #### [facility] [address] [address] [address] Con Santana Lymphocytes/100 WBC (Bld) 6.9 % Critically low 20.5-60.0 [facility] Comment on above: Performed By: #### P OCGLUC #### [facility] [address] [address] [address] Con Santana MANUAL DIFF REQ NO Normal [facility] Comment on above: Performed By: #### P OCGLUC #### [facility] [address] [address] [address] Con Santana MCH (RBC) [Entitic mass] 31.3 pg Normal 26.7-34.0 [facility] Comment on above: Performed By: #### P OCGLUC #### [facility] [address] [address] [address] Con Santana MCHC (RBC) [Mass/Vol] 33.3 g/dL Normal 29.9-35.2 [facility] Comment on above: Performed By: #### P OCGLUC #### [facility] [address] [place] [address] Dr. Con Santana MCV (RBC) [Entitic vol] 93.8 fL Normal 81.0-99.0 [facility] Comment on above: Performed By: #### P OCGLUC #### [facility] [address] [place] [address] Dr. Con Santana MONO # 0.4 103/ul Normal 0.3-0.8 [facility] Comment on above: Performed By: #### P OCGLUC #### [facility] [address] [place] [address] Dr. Con Santana Monocytes/100 WBC (Bld) 3.1 % Normal 1.7-12.0 [facility] Comment on above: Performed By: #### P OCGLUC #### [facility] [address] [place] [address] Dr. Con Santana NEUT # 10.4 103/ul Critically high 1.4-6.5 [facility] Comment on above: Performed By: #### P OCGLUC #### [facility] [address] [place] [address] Dr. Con Santana Neutrophils/100 WBC (Bld) 89.0 % Critically high 43.0-75.0 [facility] Comment on above: Performed By: #### P OCGLUC #### [facility] [address] [place] [address] Dr. Con Santana Platelet mean volume (Bld) [Entitic vol] 10.8 fL Normal 9.5-13.5 [facility] Comment on above: Performed By: #### P OCGLUC #### [facility] [address] [address] [address] Con Santana PLT 189 103/ul Normal 150-450 [facility] Comment on above: Performed By: #### P OCGLUC #### [facility] [address] [address] [address] Con Santana RBC 3.04 106/ul Critically low 4.20-5.40 [facility] Comment on above: Performed By: #### P OCGLUC #### [facility] [address] [address] [address] Con Santana WBC 11.7 103/ul Critically high 4.0-11.0 [facility] Comment on above: Performed By: #### P OCGLUC #### [facility] [address] [address] [address] Con Santana POINT OF CARE GLUCOSEon Glucose [Mass/Vol] 194 mg/dL Critically high 74-106 [facility] Comment on above: Performed By: #### C BC #### [facility] [address] [address] [address] Con Santana Glucose [Mass/Vol] 191 mg/dL Critically high 74-106 [facility] Comment on above: Performed By: #### I NFLUAB #### [facility] [address] [address] [address] Con Santana Glucose [Mass/Vol] 169 mg/dL Critically high 74-106 [facility] Comment on above: Performed By: #### P OCGLUC #### [facility] [address] [address] [address] Con Santana Glucose [Mass/Vol] 173 mg/dL Critically high -106 [facility] Comment on above: Performed By: #### I NFLUAB #### [facility] [address] [address] [address] Con Santana PROF CHEM 8 (BAS METB)on Anion gap [Moles/Vol] 18.8 mmol/L Normal [facility] Comment on above: Performed By: #### I NFLUAB #### [facility] [address] [address] [address] Con Santana Calcium [Mass/Vol] 7.3 mg/dL Critically low 8.5-10.1 [facility] Comment on above: Performed By: #### I NFLUAB #### [facility] [address] [place] [address] Dr. Con Santana Chloride [Moles/Vol] 109 mmol/L Critically high 98-107 [facility] Comment on above: Performed By: #### I NFLUAB #### [facility] [address] [place] [address] Dr. Con Santana CO2 [Moles/Vol] 17.3 mmol/L Critically low 21.0-32.0 [facility] Comment on above: Performed By: #### I NFLUAB #### [facility] [address] [place] [address] Dr. Con Santana Creatinine [Mass/Vol] 1.28 mg/dL Critically high 0.55-1.02 [facility] Comment on above: Performed By: #### I NFLUAB #### [facility] [address] [place] [address] Dr. Con Santana EGFR-AF MONTENEGRIN 48 mL/min/1.73m2 Critically low >=60 [facility] Comment on above: Performed By: #### I NFLUAB #### [facility] [address] [place] [address] Dr. Con Santana EGFR-NON AF MONTENEGRIN 40 mL/min/1.73m2 Critically low >=60 [facility] Comment on above: Performed By: #### I NFLUAB #### [facility] [address] [place] [address] Dr. Con Santana Glucose [Mass/Vol] 161 mg/dL Critically high 74-106 [facility] Comment on above: Performed By: #### I NFLUAB #### [facility] [address] [place] [address] Dr. Con Santana Potassium [Moles/Vol] 3.1 mmol/L Critically low 3.5-5.1 [facility] Comment on above: Performed By: #### I NFLUAB #### [facility] [address] [place] [address] Dr. Con Santana Sodium [Moles/Vol] 142 mmol/L Normal 136-145 [facility] Comment on above: Performed By: #### I NFLUAB #### [facility] [address] [place] [address] Dr. Con Santana Urea nitrogen [Mass/Vol] 24.0 mg/dL Critically high 7.0-18.0 [facility] Comment on above: Performed By: #### I NFLUAB #### [facility] [address] [place] [address] Dr. Con Santana Urea nitrogen/Creatinine [Mass ratio] 18.8 mg/mg Normal [facility] Comment on above: Performed By: #### I NFLUAB #### [facility] [address] [place] [address] Dr. Con Santana UA RANDOM W/MICROSCOPICon BACTERIA NONE SEEN Normal NONE SEEN [facility] Comment on above: Performed By: #### P OCGLUC #### [facility] [address] [place] [address] Dr. Con Santana Bilirubin Ql (U) Negative Normal NEGATIVE [facility] Comment on above: Performed By: #### P OCGLUC #### [facility] [address] [place] [address] Dr. Con Santana CAST NONE SEEN Normal NONE SEEN [facility] Comment on above: Performed By: #### P OCGLUC #### [facility] [address] [place] [address] Dr. Con Santana Clarity (U) CLEAR Normal CLEAR [facility] Comment on above: Performed By: #### P OCGLUC #### [facility] [address] [place] [address] Dr. Con Santana Color (U) LT. YELLOW Normal YELLOW [facility] Comment on above: Performed By: #### P OCGLUC #### [facility] [address] [address] [address] Con Santana Crystals LM Nom (Urine sed) NONE SEEN Normal NONE SEEN [facility] Comment on above: Performed By: #### P OCGLUC #### [facility] [address] [place] [address] Dr. Con Santana Epithelial cells LM Ql (Urine sed) FEW Abnormal NONE SEEN /RARE [facility] Comment on above: Performed By: #### P OCGLUC #### [facility] [address] [address] [address] Con Santana Glucose Ql (U) Negative Normal NEGATIVE [facility] Comment on above: Performed By: #### P OCGLUC #### [facility] [address] [place] [address] Dr. Con Santana Hemoglobin Ql (U) Negative Normal NEGATIVE [facility] Comment on above: Performed By: #### P OCGLUC #### [facility] [address] [place] [address] Dr. Con Santana Ketones Ql (U) Negative Normal NEGATIVE [facility] Comment on above: Performed By: #### P OCGLUC #### [facility] [address] [place] [address] Dr. Con Santana LEUKOCYTES TRACE Abnormal NEGATIVE [facility] Comment on above: Performed By: #### P OCGLUC #### [facility] [address] [place] [address] Dr. Con Santana MUCOUS NONE SEEN Normal NONE SEEN [facility] Comment on above: Performed By: #### P OCGLUC #### [facility] [address] [place] [address] Dr. Con Santana Nitrite Ql (U) Negative Normal NEGATIVE [facility] Comment on above: Performed By: #### P OCGLUC #### [facility] [address] [place] [address] Dr. Con Santana pH (U) 5.5 [pH] Normal 5-9 [facility] Comment on above: Performed By: #### P OCGLUC #### [facility] [address] [place] [address] Dr. Con Santana RBC 0-2 Normal 0-2 [facility] Comment on above: Performed By: #### P OCGLUC #### [facility] [address] [address] [address] Con Santana SPEC GRAVITY 1.010 Normal 1.005-<=1.025 [facility] Comment on above: Performed By: #### P OCGLUC #### [facility] [address] [address] [address] Con Santana UA PROTEIN Negative Normal NEGATIVE/ TRACE [facility] Comment on above: Performed By: #### P OCGLUC #### [facility] [address] [address] [address] Con Santana Urobilinogen Qn (U) 0.2 {Godfrey'U}/dL Normal 0.2 - 1. 0 [facility] Comment on above: Performed By: #### P OCGLUC #### [facility] [address] [address] [address] Con Santana WBC 2-5 Abnormal NONE SEEN [facility] Comment on above: Performed By: #### P OCGLUC #### [facility] [address] [address] [address] Con Santana XR CHEST 2 Von [...] ELEAZAR GUERRA Date: 2022-12-30 11:35 Normal [facility] BNPon 12-29-2022 Natriuretic peptide B (Bld) [Mass/Vol] 4120.0 pg/mL Critically high <=1,800.0 [facility] Comment on above: Performed By: #### E LISA JAVIER #### [facility] [address] [place] [address] Dr. Con Santana Natriuretic peptide B (Bld) [Mass/Vol] 3274.0 pg/mL Critically high <=1,800.0 [facility] Comment on above: Performed By: #### P OCGLUC #### [facility] [address] [place] [address] Dr. Con Santana CBC AUTO DIFFon 12-29-2022 BASO # 0.0 103/ul Normal 0.0-0.1 [facility] Comment on above: Performed By: #### C BC #### [facility] [address] [place] [address] Dr. Con Santana Basophils/100 WBC (Bld) 0.0 % Critically low 0.2-2.0 [facility] Comment on above: Performed By: #### C BC #### [facility] [address] [place] [address] Dr. Con Santana EO # 0.0 103/ul Normal 0.0-0.7 [facility] Comment on above: Performed By: #### C BC #### [facility] [address] [place] [address] Dr. Con Santana Eosinophils/100 WBC (Bld) 0.2 % Critically low 0.9-7.0 [facility] Comment on above: Performed By: #### C BC #### [facility] [address] [place] [address] Dr. Con Santana Erythrocyte distribution width (RBC) [Ratio] 13.6 % Normal 11.0-15.0 [facility] Comment on above: Performed By: #### C BC #### [facility] [address] [place] [address] Dr. Con Santana Hematocrit (Bld) [Volume fraction] 29.8 % Critically low 36.0-48.0 [facility] Comment on above: Performed By: #### C BC #### [facility] [address] [place] [address] Dr. Con Santana Hemoglobin (Bld) [Mass/Vol] 9.5 g/dL Critically low 12.0-16.0 [facility] Comment on above: Performed By: #### C BC #### [facility] [address] [place] [address] Dr. Con Santana IG # 0.05 10e3/ul Critically high 0.00-0.03 [facility] Comment on above: Performed By: #### C BC #### [facility] [address] [place] [address] Dr. Con Santana IG % 0.9 % Critically high 0.0-0.5 [facility] Comment on above: Performed By: #### C BC #### [facility] [address] [place] [address] Dr. Con Santana LYMPH # 0.7 103/ul Critically low 1.2-3.8 [facility] Comment on above: Performed By: #### C BC #### [facility] [address] [place] [address] Dr. Con Santana Lymphocytes/100 WBC (Bld) 13.0 % Critically low 20.5-60.0 [facility] Comment on above: Performed By: #### C BC #### [facility] [address] [place] [address] Dr. Con Santana MANUAL DIFF REQ NO Normal [facility] Comment on above: Performed By: #### C BC #### [facility] [address] [place] [address] Dr. Con Santana MCH (RBC) [Entitic mass] 30.5 pg Normal 26.7-34.0 [facility] Comment on above: Performed By: #### C BC #### [facility] [address] [place] [address] Dr. Con Santana MCHC (RBC) [Mass/Vol] 31.9 g/dL Normal 29.9-35.2 [facility] Comment on above: Performed By: #### C BC #### [facility] [address] [place] [address] Dr. Con Santana MCV (RBC) [Entitic vol] 95.8 fL Normal 81.0-99.0 [facility] Comment on above: Performed By: #### C BC #### [facility] [address] [place] [address] Dr. Con Santana MONO # 0.1 103/ul Critically low 0.3-0.8 [facility] Comment on above: Performed By: #### C BC #### [facility] [address] [address] [address] Con Santana Monocytes/100 WBC (Bld) 1.5 % Critically low 1.7-12.0 [facility] Comment on above: Performed By: #### C BC #### [facility] [address] [place] [address] Dr. Con Santana NEUT # 4.5 103/ul Normal 1.4-6.5 [facility] Comment on above: Performed By: #### C BC #### [facility] [address] [place] [address] Dr. Con Santana Neutrophils/100 WBC (Bld) 84.4 % Critically high 43.0-75.0 [facility] Comment on above: Performed By: #### C BC #### [facility] [address] [place] [address] Dr. Con Santana Platelet mean volume (Bld) [Entitic vol] 10.3 fL Normal 9.5-13.5 [facility] Comment on above: Performed By: #### C BC #### [facility] [address] [place] [address] Dr. Cno Santana PLT 178 103/ul Normal 150-450 [facility] Comment on above: Performed By: #### C BC #### [facility] [address] [place] [address] Dr. Con Santana RBC 3.11 106/ul Critically low 4.20-5.40 [facility] Comment on above: Performed By: #### C BC #### [facility] [address] [place] [address] Dr. Con Santana WBC 5.3 103/ul Normal 4.0-11.0 [facility] Comment on above: Performed By: #### C BC #### [facility] [address] [address] [address] Con CRUZ # 0.0 103/ul Normal 0.0-0.1 [facility] Comment on above: Performed By: #### C BC #### [facility] [address] [address] [address] Con Santana Basophils/100 WBC (Bld) 0.1 % Critically low 0.2-2.0 [facility] Comment on above: Performed By: #### C BC #### [facility] [address] [address] [address] Con Santana EO # 0.4 103/ul Normal 0.0-0.7 [facility] Comment on above: Performed By: #### C BC #### [facility] [address] [place] [address] Dr. Con Santana Eosinophils/100 WBC (Bld) 5.9 % Normal 0.9-7.0 [facility] Comment on above: Performed By: #### C BC #### [facility] [address] [address] [address] Con Santana Erythrocyte distribution width (RBC) [Ratio] 13.5 % Normal 11.0-15.0 [facility] Comment on above: Performed By: #### C BC #### [facility] [address] [place] [address] Dr. Con Santana Hematocrit (Bld) [Volume fraction] 29.4 % Critically low 36.0-48.0 [facility] Comment on above: Performed By: #### C BC #### [facility] [address] [address] [address] Con Santana Hemoglobin (Bld) [Mass/Vol] 9.5 g/dL Critically low 12.0-16.0 [facility] Comment on above: Performed By: #### C BC #### [facility] [address] [place] [address] Dr. Con Santana IG # 0.04 10e3/ul Critically high 0.00-0.03 [facility] Comment on above: Performed By: #### C BC #### [facility] [address] [place] [address] Dr. Con Santana IG % 0.6 % Critically high 0.0-0.5 [facility] Comment on above: Performed By: #### C BC #### [facility] [address] [place] [address] Dr. Con Santana LYMPH # 1.1 103/ul Critically low 1.2-3.8 [facility] Comment on above: Performed By: #### C BC #### [facility] [address] [place] [address] Dr. Con Santana Lymphocytes/100 WBC (Bld) 15.7 % Critically low 20.5-60.0 [facility] Comment on above: Performed By: #### C BC #### [facility] [address] [place] [address] Dr. Con Santana MANUAL DIFF REQ NO Normal [facility] Comment on above: Performed By: #### C BC #### [facility] [address] [place] [address] Dr. Con Santana MCH (RBC) [Entitic mass] 31.3 pg Normal 26.7-34.0 [facility] Comment on above: Performed By: #### C BC #### [facility] [address] [place] [address] Dr. Con Santana MCHC (RBC) [Mass/Vol] 32.3 g/dL Normal 29.9-35.2 [facility] Comment on above: Performed By: #### C BC #### [facility] [address] [place] [address] Dr. Con Santana MCV (RBC) [Entitic vol] 96.7 fL Normal 81.0-99.0 [facility] Comment on above: Performed By: #### C BC #### [facility] [address] [place] [address] Dr. Con Santana MONO # 0.4 103/ul Normal 0.3-0.8 [facility] Comment on above: Performed By: #### C BC #### [facility] [address] [address] [address] Con Santana Monocytes/100 WBC (Bld) 5.9 % Normal 1.7-12.0 [facility] Comment on above: Performed By: #### C BC #### [facility] [address] [address] [address] Con Santana NEUT # 5.0 103/ul Normal 1.4-6.5 [facility] Comment on above: Performed By: #### C BC #### [facility] [address] [address] [address] Con Santana Neutrophils/100 WBC (Bld) 71.8 % Normal 43.0-75.0 [facility] Comment on above: Performed By: #### C BC #### [facility] [address] [place] [address] Dr. Con Santana Platelet mean volume (Bld) [Entitic vol] 10.0 fL Normal 9.5-13.5 [facility] Comment on above: Performed By: #### C BC #### [facility] [address] [address] [address] Con Santana PLT 173 103/ul Normal 150-450 [facility] Comment on above: Performed By: #### C BC #### [facility] [address] [address] [address] Con Santana RBC 3.04 106/ul Critically low 4.20-5.40 [facility] Comment on above: Performed By: #### C BC #### [facility] [address] [address] [address] Con Santana WBC 7.0 103/ul Normal 4.0-11.0 [facility] Comment on above: Performed By: #### C BC #### [facility] [address] [place] [address] Dr. Con Santana ECHOCARDIO M/2D COMPLETEon 0 12-29-2022 ECHOCARDIO M/2D COMPLETE Patient: SALOME DOMINGUEZBrianne Exam Date: 12/29/2022 : 1940 Gender:F Ordering : SIVA CROSS Admission #: [id number] Family : DR EMILIA JACKSON . Order #: [id number] CLICK HERE TO VIEW EXAM ECHOCARDIOGRAM REPORT [...] Jefferson Varma M.D. on 01/01/2023 at 09:24 [facility] LACTATE/LACTIC ACIDon 2022 Lactate [Moles/Vol] 0.6 mmol/L Normal 0.4-2.0 [facility] Comment on above: Performed By: #### C BC #### [facility] [address] [address] [address] Con Santana PH VENOUS BLOODon 12-29-2022 PCO2 VENOUS 34.6 mmHg Critically low 40.0-52.0 [facility] Comment on above: Performed By: #### C BC #### [facility] [address] [address] [address] Con Santana pH VENOUS 7.343 Normal 7.330-7.430 [facility] Comment on above: Performed By: #### C BC #### [facility] [address] [place] [address] Dr. Con Santana POINT OF CARE GLUCOSEon Glucose [Mass/Vol] 217 mg/dL Critically high -106 [facility] Comment on above: Performed By: #### C BC #### [facility] [address] [place] [address] Dr. Con Santana Glucose [Mass/Vol] 199 mg/dL Critically high -106 [facility] Comment on above: Performed By: #### C BC #### [facility] [address] [place] [address] Dr. Con Santana Glucose [Mass/Vol] 202 mg/dL Critically high -106 [facility] Comment on above: Performed By: #### P OCGLUC #### [facility] [address] [place] [address] Dr. Con Santana PROF 14(COMP METB)on 023 Albumin [Mass/Vol] 2.6 g/dL Critically low 3.4-5.0 [facility] Comment on above: Performed By: #### P OCGLUC #### [facility] [address] [place] [address] Dr. Con Santana Albumin/Globulin [Mass ratio] 1.1 {ratio} Normal [facility] Comment on above: Performed By: #### P OCGLUC #### [facility] [address] [address] [address] Con Santana ALP [Catalytic activity/Vol] 67 U/L Normal 46-116 [facility] Comment on above: Performed By: #### P OCGLUC #### [facility] [address] [address] [address] Con Santana ALT [Catalytic activity/Vol] 69 U/L Critically high 14-59 [facility] Comment on above: Performed By: #### P OCGLUC #### [facility] [address] [address] [address] Con Santana Anion gap [Moles/Vol] 15.0 mmol/L Normal [facility] Comment on above: Performed By: #### P OCGLUC #### [facility] [address] [address] [address] Con Santana AST [Catalytic activity/Vol] 24 U/L Normal 15-37 [facility] Comment on above: Performed By: #### P OCGLUC #### [facility] [address] [address] [address] Con Santana Bilirubin [Mass/Vol] 0.3 mg/dL Normal 0.2-1.0 [facility] Comment on above: Performed By: #### P OCGLUC #### [facility] [address] [address] [address] Cno Santana Calcium [Mass/Vol] 7.4 mg/dL Critically low 8.5-10.1 [facility] Comment on above: Performed By: #### P OCGLUC #### [facility] [address] [place] [address] Dr. Con Santana Chloride [Moles/Vol] 110 mmol/L Critically high 98-107 [facility] Comment on above: Performed By: #### P OCGLUC #### [facility] [address] [address] [address] Con Santana CO2 [Moles/Vol] 21.1 mmol/L Normal 21.0-32.0 [facility] Comment on above: Performed By: #### P OCGLUC #### [facility] [address] [address] [address] Con Santana Creatinine [Mass/Vol] 0.79 mg/dL Normal 0.55-1.02 [facility] Comment on above: Performed By: #### P OCGLUC #### [facility] [address] [address] [address] Con Santana EGFR-AF MONTENEGRIN >60 Normal >=60 [facility] Comment on above: Performed By: #### P OCGLUC #### [facility] [address] [address] [address] Con Santana EGFR-NON AF MONTENEGRIN >60 Normal >=60 [facility] Comment on above: Performed By: #### P OCGLUC #### [facility] [address] [address] [address] Con Santana Globulin (S) [Mass/Vol] 2.3 g/dL Normal [facility] Comment on above: Performed By: #### P OCGLUC #### [facility] [address] [address] [address] Con Santana Glucose [Mass/Vol] 115 mg/dL Critically high 74-106 [facility] Comment on above: Performed By: #### P OCGLUC #### [facility] [address] [address] [address] Con Santana Potassium [Moles/Vol] 4.1 mmol/L Normal 3.5-5.1 [facility] Comment on above: Performed By: #### P OCGLUC #### [facility] [address] [address] [address] Con Santana Protein [Mass/Vol] 4.9 g/dL Critically low 6.4-8.2 [facility] Comment on above: Performed By: #### P OCGLUC #### [facility] [address] [address] [address] Con Santana Sodium [Moles/Vol] 142 mmol/L Normal 136-145 [facility] Comment on above: Performed By: #### P OCGLUC #### [facility] [address] [address] [address] Con Santana Urea nitrogen [Mass/Vol] 19.0 mg/dL Critically high 7.0-18.0 [facility] Comment on above: Performed By: #### P OCGLUC #### [facility] [address] [place] [address] Dr. Con Santana Urea nitrogen/Creatinine [Mass ratio] 24.1 mg/mg Normal [facility] Comment on above: Performed By: #### P OCGLUC #### [facility] [address] [place] [address] Dr. Con Santana PROF CHEM 8 (BAS METB)on Anion gap [Moles/Vol] 13.5 mmol/L Normal [facility] Comment on above: Performed By: #### LISA INTERIANO #### [facility] [address] [place] [address] Dr. Con Santana Calcium [Mass/Vol] 7.6 mg/dL Critically low 8.5-10.1 [facility] Comment on above: Performed By: #### LISA INTERIANO #### [facility] [address] [place] [address] Dr. Con Santana Chloride [Moles/Vol] 110 mmol/L Critically high 98-107 [facility] Comment on above: Performed By: #### LISA INTERIANO #### [facility] [address] [place] [address] Dr. Con Santana CO2 [Moles/Vol] 18.7 mmol/L Critically low 21.0-32.0 [facility] Comment on above: Performed By: #### TIM INTERIANORO #### [facility] [address] [place] [address] Dr. Con Santana Creatinine [Mass/Vol] 0.79 mg/dL Normal 0.55-1.02 [facility] Comment on above: Performed By: #### TIM INTERIANORO #### [facility] [address] [place] [address] Dr. Con Santana EGFR-AF MONTENEGRIN >60 Normal >=60 [facility] Comment on above: Performed By: #### LISA INTERIANO #### [facility] [address] [address] [address] Con Santana EGFR-NON AF MONTENEGRIN >60 Normal >=60 [facility] Comment on above: Performed By: #### E YAYA, UMICRO #### [facility] [address] [address] [address] Con Santana Glucose [Mass/Vol] 155 mg/dL Critically high 74-106 [facility] Comment on above: Performed By: #### E YAYA, UMICRO #### [facility] [address] [address] [address] Con Santana Potassium [Moles/Vol] 4.2 mmol/L Normal 3.5-5.1 [facility] Comment on above: Performed By: #### Anaya JAVIER, UMICRO #### [facility] [address] [place] [address] Dr. Con Santana Sodium [Moles/Vol] 138 mmol/L Normal 136-145 [facility] Comment on above: Performed By: #### Anaya JAVIER, UMICRO #### [facility] [address] [address] [address] Con Santana Urea nitrogen [Mass/Vol] 21.0 mg/dL Critically high 7.0-18.0 [facility] Comment on above: Performed By: #### Anaya JAVIER, UMICRO #### [facility] [address] [address] [address] Con Santana Urea nitrogen/Creatinine [Mass ratio] 26.6 mg/mg Normal [facility] Comment on above: Performed By: #### E YAYA, UMICRO #### [facility] [address] [address] [address] Con Santana PROTIMEon 12-29-2022 INR Coag (PPP) [Relative time] 1.00 {INR} [facility] Comment on above: Performed By: #### P OCGLUC #### [facility] [address] [place] [address] Dr. Con Santana INR GUIDELINES SEE BELOW Normal [facility] Comment on above: Result Comment: CANDELARIA RED INR: 2.0 - 3.0 CONDITIONS NOT LISTED BELOW 2.5 - 3.5 FOR PROSTHETIC HEART VALVE REPLACEMENT 2.5 - 3.5 RECURRENT THROMBOSIS Performed By: #### P OCGLUC #### [facility] [address] [place] [address] Dr. Con Santana PT Coag (PPP) [Time] 10.6 s Normal 9.0-11.6 [facility] Comment on above: Performed By: #### P OCGLUC #### [facility] [address] [place] [address] Dr. Con Santana PTTon 12-29-2022 aPTT Coag (Bld) [Time] 28.2 s Normal 22.3-36.2 [facility] Comment on above: Performed By: #### I NFLUAB #### [facility] [address] [place] [address] Dr. Con Santana TROPONIN, HIGH SENSITIVITYon 12-29-2022 HSTROP 16.0 pg/mL Normal 4.0-51.3 [facility] Comment on above: Result Comment: CUT- OFF POINTS HAVE BEEN ESTABLISHED BASED ON THE FOURTH UNIVERSAL DEFINITIONS OF MYOCARDIAL INFARCTION. THE UPPER REFERENCE LIMIT (URL) OF TROPONIN, DEFINED THE 99TH PERCENTILE OF cTnI DISTRIBUTION IN A REFERENCE POPULATION, HAS BEEN CONFIRMED THE DECISION THRESHOLD FOR VT DIAGNOSIS. Performed By: #### H STROPN #### [facility] [address] [place] [address] Dr. Con Santana HSTROP 23.6 pg/mL Normal 4.0-51.3 [facility] Comment on above: Result Comment: CUT- OFF POINTS HAVE BEEN ESTABLISHED BASED ON THE FOURTH UNIVERSAL DEFINITIONS OF MYOCARDIAL INFARCTION. THE UPPER REFERENCE LIMIT (URL) OF TROPONIN, DEFINED THE 99TH PERCENTILE OF cTnI DISTRIBUTION IN A REFERENCE POPULATION, HAS BEEN CONFIRMED THE DECISION THRESHOLD FOR VT DIAGNOSIS. Performed By: #### P OCGLUC #### [facility] [address] [place] [address] Dr. Con Santana XR CHEST 1 Von [...] TRINI CISNEROS Date: 2022-12-28 22:49 Normal [facility] Covid-19 PCR (CVDTB)on SARS-CoV-2 (COVID-19) RNA JEANE+probe Ql (Unsp spec) Not detected Normal NOT DETECTED [facility] Comment on above: Result Comment: When [...] for this test is supported by the [place] of [employer] and Human Service's declaration that [...] used). Performed By: #### C VDTBH #### [facility] [address] [address] [address] Con Santana PH VENOUS BLOODon 12-28-2022 PCO2 VENOUS 40.4 mmHg Normal 40.0-52.0 [facility] Comment on above: Performed By: #### I NFLUAB #### [facility] [address] [place], [place] [address] Dr. Con Santana pH VENOUS 7.297 Critically low 7.330-7.430 [facility] Comment on above: Performed By: #### I NFLUAB #### [facility] [address] [place] [address] Dr. Con Santana CBC W MANUAL DIFFon 12-23-19 ATYPICAL LYMPH # Normal [facility] Comment on above: Performed By: #### C BC #### [facility] [address] [place] [address] Dr. Con Santana ATYPICAL LYMPH % Normal [facility] Comment on above: Performed By: #### C BC #### [facility] [address] [place] [address] Dr. Con Santana BAND # 0.0 103/ul Normal 0.0-0.3 [facility] Comment on above: Performed By: #### C BC #### [facility] [address] [place] [address] Dr. Con Santana BAND % 0 % Normal 0-5 [facility] Comment on above: Performed By: #### C BC #### [facility] [address] [place] [address] Dr. Con Santana BASOM # 0.00 103/ul Normal 0.00-0.10 [facility] Comment on above: Performed By: #### C BC #### [facility] [address] [place] [address] Dr. Con Santana BASOM % 0.0 % Critically low 0.2-2.0 [facility] Comment on above: Performed By: #### C BC #### [facility] [address] [place] [address] Dr. Con Santana BLAST # Normal [facility] Comment on above: Performed By: #### C BC #### [facility] [address] [place] [address] Dr. Con Santana BLAST % Normal [facility] Comment on above: Performed By: #### C BC #### [facility] [address] [place] [address] Dr. Con Santana CORRECTED WBC Normal 4.0-11.0 [facility] Comment on above: Performed By: #### C BC #### [facility] [address] [place] [address] Dr. Con Santana EOS # 0.00 103/ul Normal 0.00-0.70 [facility] Comment on above: Performed By: #### C BC #### [facility] [address] [address] [address] Con Santana EOS% 0.0 % Critically low 0.9-7.0 [facility] Comment on above: Performed By: #### C BC #### [facility] [address] [address] [address] Con Santana HCT 31.2 % Critically low 36.0-48.0 [facility] Comment on above: Performed By: #### C BC #### [facility] [address] [address] [address] Con Santana HGB 10.2 g/dl Critically low 12.0-16.0 [facility] Comment on above: Performed By: #### C BC #### [facility] [address] [address] [address] Con Santana LYMPHM # 0.32 103/ul Critically low 1.20-3.80 [facility] Comment on above: Performed By: #### C BC #### [facility] [address] [address] [address] Con Santana LYMPHM% 3.0 % Critically low 20.5-60.0 [facility] Comment on above: Performed By: #### C BC #### [facility] [address] [address] [address] Con Santana MCH 30.7 pg Normal 26.7-34.0 [facility] Comment on above: Performed By: #### C BC #### [facility] [address] [address] [address] Con Santana MCHC 32.7 g/dl Normal 29.9-35.2 [facility] Comment on above: Performed By: #### C BC #### [facility] [address] [address] [address] Con Santana MCV 94.0 fL Normal 81.0-99.0 [facility] Comment on above: Performed By: #### C BC #### [facility] [address] [address] [address] Con Santana METAMYELOCYTE # Normal [facility] Comment on above: Performed By: #### C BC #### [facility] [address] [address] [address] Con Santana METAMYELOCYTE % Normal [facility] Comment on above: Performed By: #### C BC #### [facility] [address] [place] [address] Dr. Con Santana MONOM# 0.11 103/ul Critically low 0.30-0.80 [facility] Comment on above: Performed By: #### C BC #### [facility] [address] [place] [address] Dr. Con Santana MONOM% 1.0 % Critically low 1.7-12.0 [facility] Comment on above: Performed By: #### C BC #### [facility] [address] [place] [address] Dr. Con Santana MPV 10.6 fL Normal 9.5-13.5 [facility] Comment on above: Performed By: #### C BC #### [facility] [address] [place] [address] Dr. Con Santana MYELOCYTE # Normal [facility] Comment on above: Performed By: #### C BC #### [facility] [address] [place] [address] Dr. Con Santana MYELOCYTE % Normal [facility] Comment on above: Performed By: #### C BC #### [facility] [address] [place] [address] Dr. Con Santana NRBC Normal [facility] Comment on above: Performed By: #### C BC #### [facility] [address] [place] [address] Dr. Con Santana PLT 242 103/ul Normal 150-450 [facility] Comment on above: Performed By: #### C BC #### [facility] [address] [place] [address] Dr. Con Santana RBC 3.32 106/ul Critically low 4.20-5.40 [facility] Comment on above: Performed By: #### C BC #### [facility] [address] [place] [address] Dr. Con Santana RDW 13.2 % Normal 11.0-15.0 [facility] Comment on above: Performed By: #### C BC #### [facility] [address] [place] [address] Dr. Con Santana SEG # 10.18 103/ul Critically high 1.40-6.50 [facility] Comment on above: Performed By: #### C BC #### [facility] [address] [place] [address] Dr. Con Santana SEG % 96.0 % Critically high 43.0-75.0 [facility] Comment on above: Performed By: #### C BC #### [facility] [address] [place] [address] Dr. Con Santana WBC 10.6 103/ul Normal 4.0-11.0 [facility] Comment on above: Performed By: #### C BC #### [facility] [address] [place] [address] Dr. Con Santana POINT OF CARE GLUCOSEon 11-27 Glucose [Mass/Vol] 139 mg/dL Critically high 74-106 [facility] Comment on above: Performed By: #### I NFLUAB #### [facility] [address] [place] [address] Dr. Con Santana Glucose [Mass/Vol] 151 mg/dL Critically high 74-106 [facility] Comment on above: Performed By: #### I NFLUAB #### [facility] [address] [place] [address] Dr. Con Santana Glucose [Mass/Vol] 200 mg/dL Critically high 74-106 [facility] Comment on above: Performed By: #### P OCGLUC #### [facility] [address] [place] [address] Dr. Con Santana PROF CHEM 8 (BAS METB)on Anion gap [Moles/Vol] 17.1 mmol/L Normal [facility] Comment on above: Performed By: #### P OCGLUC #### [facility] [address] [address] [address] Con Santana Calcium [Mass/Vol] 7.7 mg/dL Critically low 8.5-10.1 [facility] Comment on above: Performed By: #### P OCGLUC #### [facility] [address] [address] [address] Con Santana Chloride [Moles/Vol] 111 mmol/L Critically high 98-107 [facility] Comment on above: Performed By: #### P OCGLUC #### [facility] [address] [address] [address] Con Santana CO2 [Moles/Vol] 17.1 mmol/L Critically low 21.0-32.0 [facility] Comment on above: Performed By: #### P OCGLUC #### [facility] [address] [address] [address] Con Santana Creatinine [Mass/Vol] 1.46 mg/dL Critically high 0.55-1.02 [facility] Comment on above: Performed By: #### P OCGLUC #### [facility] [address] [address] [address] Con Santana EGFR-AF MONTENEGRIN 41 mL/min/1.73m2 Critically low >=60 [facility] Comment on above: Performed By: #### P OCGLUC #### [facility] [address] [address] [address] Con Santana EGFR-NON AF MONTENEGRIN 34 mL/min/1.73m2 Critically low >=60 [facility] Comment on above: Performed By: #### P OCGLUC #### [facility] [address] [address] [address] Con Santana Glucose [Mass/Vol] 167 mg/dL Critically high 74-106 [facility] Comment on above: Performed By: #### P OCGLUC #### [facility] [address] [address] [address] Con Santana Potassium [Moles/Vol] 3.2 mmol/L Critically low 3.5-5.1 [facility] Comment on above: Performed By: #### P OCGLUC #### [facility] [address] [address] [address] Con Santana Sodium [Moles/Vol] 142 mmol/L Normal 136-145 [facility] Comment on above: Performed By: #### P OCGLUC #### [facility] [address] [address] [address] Con Santana Urea nitrogen [Mass/Vol] 40.0 mg/dL Critically high 7.0-18.0 [facility] Comment on above: Performed By: #### P OCGLUC #### [facility] [address] [place] [address] Dr. Con Santana Urea nitrogen/Creatinine [Mass ratio] 27.4 mg/mg Normal [facility] Comment on above: Performed By: #### P OCGLUC #### [facility] [address] [place] [address] Dr. Con Santana XR CHEST 1 Von [...] setting of small airways disease. 3. Pulmonary hyperexpansion-correlat e with history of COPD. Electronically authenticated by: BRINA HENRY Date: 2022-12-22 07:32 Normal [facility] POINT OF CARE GLUCOSEon 11-27 Glucose [Mass/Vol] 195 mg/dL Critically high 74-106 [facility] Comment on above: Performed By: #### P OCGLUC #### [facility] [address] [place] [address] Dr. Con Santana Glucose [Mass/Vol] 174 mg/dL Critically high 74-106 [facility] Comment on above: Performed By: #### C BC #### [facility] [address] [place] [address] Dr. Con Santana Glucose [Mass/Vol] 148 mg/dL Critically high 74-106 [facility] Comment on above: Performed By: #### C BC #### [facility] [address] [place] [address] Dr. Con Santana BNPon 12-20-2022 Natriuretic peptide B (Bld) [Mass/Vol] 1276.0 pg/mL Normal <=1,800.0 [facility] Comment on above: Performed By: #### H STROPN #### [facility] [address] [place] [address] Dr. Con Santana CARDIAC MAXIMILIANO ADMITon 023 CK [Catalytic activity/Vol] 101 U/L Normal 26-192 [facility] Comment on above: Performed By: #### H STROPN #### [facility] [address] [place] [address] Dr. Con Santana CK.MB [Mass/Vol] 1.61 ng/mL Normal <=3.60 [facility] Comment on above: Performed By: #### H STROPN #### [facility] [address] [place] [address] Dr. Con Santana HSTROP 19.8 pg/mL Normal 4.0-51.3 [facility] Comment on above: Result Comment: CUT- OFF POINTS HAVE BEEN ESTABLISHED BASED ON THE FOURTH UNIVERSAL DEFINITIONS OF MYOCARDIAL INFARCTION. THE UPPER REFERENCE LIMIT (URL) OF TROPONIN, DEFINED THE 99TH PERCENTILE OF cTnI DISTRIBUTION IN A REFERENCE POPULATION, HAS BEEN CONFIRMED THE DECISION THRESHOLD FOR [place] DIAGNOSIS. Performed By: #### H STROPN #### [facility] [address] [place] [address] Dr. Con Santana RAMONA 76 ng/mL Normal 9-82 [facility] Comment on above: Performed By: #### H STROPN #### [facility] [address] [address] [address] Con Santana CBC AUTO DIFFon 12-20-2022 BASO # 0.1 103/ul Normal 0.0-0.1 [facility] Comment on above: Performed By: #### P OCGLUC #### [facility] [address] [address] [address] Con Santana Basophils/100 WBC (Bld) 0.9 % Normal 0.2-2.0 [facility] Comment on above: Performed By: #### P OCGLUC #### [facility] [address] [address] [address] Con Santana EO # 0.8 103/ul Critically high 0.0-0.7 [facility] Comment on above: Performed By: #### P OCGLUC #### [facility] [address] [place] [address] Dr. Con Santana Eosinophils/100 WBC (Bld) 12.8 % Critically high 0.9-7.0 [facility] Comment on above: Performed By: #### P OCGLUC #### [facility] [address] [place] [address] Dr. Con Santana Erythrocyte distribution width (RBC) [Ratio] 13.0 % Normal 11.0-15.0 [facility] Comment on above: Performed By: #### P OCGLUC #### [facility] [address] [place] [address] Dr. Con Santana Hematocrit (Bld) [Volume fraction] 40.9 % Normal 36.0-48.0 [facility] Comment on above: Performed By: #### P OCGLUC #### [facility] [address] [address] [address] Con Santana Hemoglobin (Bld) [Mass/Vol] 13.3 g/dL Normal 12.0-16.0 [facility] Comment on above: Performed By: #### P OCGLUC #### [facility] [address] [place] [address] Dr. Con Santana IG # 0.01 10e3/ul Normal 0.00-0.03 [facility] Comment on above: Performed By: #### P OCGLUC #### [facility] [address] [place] [address] Dr. Con Santana IG % 0.2 % Normal 0.0-0.5 [facility] Comment on above: Performed By: #### P OCGLUC #### [facility] [address] [address] [address] Con Santana LYMPH # 3.3 103/ul Normal 1.2-3.8 [facility] Comment on above: Performed By: #### P OCGLUC #### [facility] [address] [place] [address] Dr. Con Santana Lymphocytes/100 WBC (Bld) 51.5 % Normal 20.5-60.0 [facility] Comment on above: Performed By: #### P OCGLUC #### [facility] [address] [place] [address] Dr. Con Santana MANUAL DIFF REQ NO Normal [facility] Comment on above: Performed By: #### P OCGLUC #### [facility] [address] [address] [address] Con Santana MCH (RBC) [Entitic mass] 31.3 pg Normal 26.7-34.0 [facility] Comment on above: Performed By: #### P OCGLUC #### [facility] [address] [place] [address] Dr. Con Satnana MCHC (RBC) [Mass/Vol] 32.5 g/dL Normal 29.9-35.2 [facility] Comment on above: Performed By: #### P OCGLUC #### [facility] [address] [place] [address] Dr. Con Santana MCV (RBC) [Entitic vol] 96.2 fL Normal 81.0-99.0 [facility] Comment on above: Performed By: #### P OCGLUC #### [facility] [address] [address] [address] Con Santana MONO # 0.5 103/ul Normal 0.3-0.8 [facility] Comment on above: Performed By: #### P OCGLUC #### [facility] [address] [place] [address] Dr. Con Santana Monocytes/100 WBC (Bld) 7.0 % Normal 1.7-12.0 [facility] Comment on above: Performed By: #### P OCGLUC #### [facility] [address] [place] [address] Dr. Con Santana NEUT # 1.8 103/ul Normal 1.4-6.5 [facility] Comment on above: Performed By: #### P OCGLUC #### [facility] [address] [place] [address] Dr. Con Santana Neutrophils/100 WBC (Bld) 27.6 % Critically low 43.0-75.0 [facility] Comment on above: Performed By: #### P OCGLUC #### [facility] [address] [place] [address] Dr. Con Santana Platelet mean volume (Bld) [Entitic vol] 9.9 fL Normal 9.5-13.5 [facility] Comment on above: Performed By: #### P OCGLUC #### [facility] [address] [place] [address] Dr. Con Santana PLT 286 103/ul Normal 150-450 [facility] Comment on above: Performed By: #### P OCGLUC #### [facility] [address] [place] [address] Dr. Con Santana RBC 4.25 106/ul Normal 4.20-5.40 [facility] Comment on above: Performed By: #### P OCGLUC #### [facility] [address] [place] [address] Dr. Con Santana WBC 6.5 103/ul Normal 4.0-11.0 [facility] Comment on above: Performed By: #### P OCGLUC #### [facility] [address] [place] [address] Dr. Con Santana CULTURE BLOODon 12-20-2022 Microscopic examination of blood, culture Culture Observations: NO GROWTH AT 5 DAYS. Normal [facility] Comment on above: Performed By: #### B [id number] #### [facility] [address] [place] [address] Dr. Con Santana Microscopic examination of blood, culture Culture Observations: NO GROWTH AT 5 DAYS. Normal [facility] Comment on above: Performed By: #### C BC #### [facility] [address] [place] [address] Dr. Con Santana CULTURE URINEon 12-20-2022 CULTURE URINE Culture Observations : LIGHT GROWTH OF MIXED GENITAL [place]. NO POTENTIAL PATHOGENS SEEN. Normal [facility] Comment on above: Performed By: #### C BC #### [facility] [address] [place] [address] Dr. Con Santana [facility]27 SARS-CoV-2 (COVID-19) RNA JEANE+probe Ql (Unsp spec) Not detected Normal NOT DETECTED [facility] Comment on above: Result Comment: When [...] for this test is supported by the [employer] Manager of Health and Human Service's declaration that [...] used). Performed By: #### C BC #### [facility] [address] [place] [address] Dr. Con Santana ER URINE PROFILEon 3 Bilirubin Ql (U) Negative Normal NEGATIVE [facility] Comment on above: Performed By: #### E LISA JAVIER #### [facility] [address] [place] [address] Dr. Con Santana Clarity (U) CLEAR Normal CLEAR [facility] Comment on above: Performed By: #### FABIANA INTERIANOICRO #### [facility] [address] [place] [address] Dr. Con Santana Color (U) LT. YELLOW Normal YELLOW [facility] Comment on above: Performed By: #### Anaya JAVIER UMICRO #### [facility] [address] [place] [address] Dr. Con KNIGHT A micrscopic examination will be performed if indicated. Normal [facility] Comment on above: Performed By: #### Anaya JAVIER UMICRO #### [facility] [address] [place] [address] Dr. Con Santana Glucose Ql (U) Negative Normal NEGATIVE [facility] Comment on above: Performed By: #### Anaya JAVIER UMICRO #### [facility] [address] [place] [address] Dr. Con Santana Hemoglobin Ql (U) TRACE-INTACT Abnormal NEGATIVE [facility] Comment on above: Performed By: #### Anaya JAVIER UMICRO #### [facility] [address] [place] [address] Dr. Con Santana Ketones Ql (U) TRACE Abnormal NEGATIVE [facility] Comment on above: Performed By: #### Anaya JAVIER UMICRO #### [facility] [address] [place] [address] Dr. Con Santana LEUKOCYTES MODERATE Abnormal NEGATIVE [facility] Comment on above: Performed By: #### Anaya JAVIER UMICRO #### [facility] [address] [place] [address] Dr. Con Santana Nitrite Ql (U) Positive Abnormal NEGATIVE [facility] Comment on above: Performed By: #### Anaya JAVIER UMICRO #### [facility] [address] [place] [address] Dr. Con Santana pH (U) 7.0 [pH] Normal 5-9 [facility] Comment on above: Performed By: #### Anaya YAYA, UMICRO #### [facility] [address] [place] [address] Dr. Con Santana SPEC GRAVITY 1.010 Normal 1.005-<=1.025 [facility] Comment on above: Performed By: #### Anaya JAVIER, UMICRO #### [facility] [address] [place] [address] Dr. Con Santana UA PROTEIN TRACE Normal NEGATIVE/ TRACE [facility] Comment on above: Performed By: #### E YAYA, ICRO #### [facility] [address] [place] [address] Dr. Con Santana UR MICRO IND INDICATED Normal [facility] Comment on above: Performed By: #### E YAYA ICRO #### [facility] [address] [place] [address] Dr. Con Santana Urobilinogen Qn (U) 0.2 {Godfrey'U}/dL Normal 0.2 - 1. 0 [facility] Comment on above: Performed By: #### Anaya JAVIER, ICRO #### [facility] [address] [place] [address] Dr. Con Santana INFLUENZA A AND B AGon 12-20 INFLUENZA A AG Negative Normal NEGATIVE SEE COMMENT [facility] Comment on above: Performed By: #### I NFLUAB #### [facility] [address] [place] [address] Dr. Con Santana INFLUENZA B AG Negative Normal NEGATIVE SEE COMMENT [facility] Comment on above: Performed By: #### I NFLUAB #### [facility] [address] [place] [address] Dr. Con Santana LACTATE/LACTIC ACIDon 2022 Lactate [Moles/Vol] 0.6 mmol/L Normal 0.4-2.0 [facility] Comment on above: Performed By: #### P OCGLUC #### [facility] [address] [place] [address] Dr. Con Santana POINT OF CARE GLUCOSEon 11-27 Glucose [Mass/Vol] 217 mg/dL Critically high 74-106 [facility] Comment on above: Performed By: #### I NFLUAB #### [facility] [address] [place] [address] Dr. Con Santana Glucose [Mass/Vol] 204 mg/dL Critically high 74-106 [facility] Comment on above: Performed By: #### P OCGLUC #### [facility] [address] [address] [address] Con Santana Glucose [Mass/Vol] 148 mg/dL Critically high 74-106 [facility] Comment on above: Performed By: #### C BC #### [facility] [address] [address] [address] Con Santana PROF 14(COMP METB)on 023 Albumin [Mass/Vol] 3.4 g/dL Normal 3.4-5.0 [facility] Comment on above: Performed By: #### H STROPN #### [facility] [address] [place] [address] Dr. Con Santana Albumin/Globulin [Mass ratio] 1.1 {ratio} Normal [facility] Comment on above: Performed By: #### H STROPN #### [facility] [address] [place] [address] Dr. Con Santana ALP [Catalytic activity/Vol] 95 U/L Normal 46-116 [facility] Comment on above: Performed By: #### H STROPN #### [facility] [address] [place] [address] Dr. Con Santana ALT [Catalytic activity/Vol] 22 U/L Normal 14-59 [facility] Comment on above: Performed By: #### H STROPN #### [facility] [address] [place] [address] Dr. Con Santana Anion gap [Moles/Vol] 13.1 mmol/L Normal [facility] Comment on above: Performed By: #### H STROPN #### [facility] [address] [place] [address] Dr. Con Santana AST [Catalytic activity/Vol] U/L Critically low 15-37 [facility] Comment on above: Performed By: #### H STROPN #### [facility] [address] [address] [address] Con Santana Bilirubin [Mass/Vol] 0.4 mg/dL Normal 0.2-1.0 [facility] Comment on above: Performed By: #### H STROPN #### [facility] [address] [address] [address] Con Santana Calcium [Mass/Vol] 8.5 mg/dL Normal 8.5-10.1 [facility] Comment on above: Performed By: #### H STROPN #### [facility] [address] [address] [address] Con Santana Chloride [Moles/Vol] 107 mmol/L Normal 98-107 [facility] Comment on above: Performed By: #### H STROPN #### [facility] [address] [address] [address] Con Santana CO2 [Moles/Vol] 22.5 mmol/L Normal 21.0-32.0 [facility] Comment on above: Performed By: #### H STROPN #### [facility] [address] [address] [address] Con Santana Creatinine [Mass/Vol] 0.85 mg/dL Normal 0.55-1.02 [facility] Comment on above: Performed By: #### H STROPN #### [facility] [address] [place] [address] Dr. Con Santana EGFR-AF MONTENEGRIN >60 Normal >=60 [facility] Comment on above: Performed By: #### H STROPN #### [facility] [address] [address] [address] Con Santana EGFR-NON AF MONTENEGRIN >60 Normal >=60 [facility] Comment on above: Performed By: #### H STROPN #### [facility] [address] [address] [address] Con Santana Globulin (S) [Mass/Vol] 3.2 g/dL Normal [facility] Comment on above: Performed By: #### H STROPN #### [facility] [address] [address] [address] Con Santana Glucose [Mass/Vol] 131 mg/dL Critically high 74-106 [facility] Comment on above: Performed By: #### H STROPN #### [facility] [address] [address] [address] Con Santana Potassium [Moles/Vol] 3.6 mmol/L Normal 3.5-5.1 [facility] Comment on above: Performed By: #### H STROPN #### [facility] [address] [address] [address] Con Santana Protein [Mass/Vol] 6.6 g/dL Normal 6.4-8.2 [facility] Comment on above: Performed By: #### H STROPN #### [facility] [address] [address] [address] Con Santana Sodium [Moles/Vol] 139 mmol/L Normal 136-145 [facility] Comment on above: Performed By: #### H STROPN #### [facility] [address] [address] [address] Con Santana Urea nitrogen [Mass/Vol] 15.0 mg/dL Normal 7.0-18.0 [facility] Comment on above: Performed By: #### H STROPN #### [facility] [address] [address] [address] Con Santana Urea nitrogen/Creatinine [Mass ratio] 17.6 mg/mg Normal [facility] Comment on above: Performed By: #### H STROPN #### [facility] [address] [address] [address] Con Santana PROTIMEon 12-20-2022 INR Coag (PPP) [Relative time] 1.08 {INR} Normal [facility] Comment on above: Performed By: #### H STROPN #### [facility] [address] [address] [address] Con Santana INR GUIDELINES SEE BELOW Normal [facility] Comment on above: Result Comment: CANDELARIA RED INR: 2.0 - 3.0 CONDITIONS NOT LISTED BELOW 2.5 - 3.5 FOR PROSTHETIC HEART VALVE REPLACEMENT 2.5 - 3.5 RECURRENT THROMBOSIS Performed By: #### H STROPN #### [facility] [address] [place] [address] Dr. Con Santana PT Coag (PPP) [Time] 11.4 s Normal 9.0-11.6 [facility] Comment on above: Performed By: #### H KATHERINEPN #### [facility] [address] [place] [address] Dr. Con Santana PTTon 12-20-2022 aPTT Coag (Bld) [Time] 30.8 s Normal 22.3-36.2 [facility] Comment on above: Performed By: #### H ARTURO #### [facility] [address] [place] [address] Dr. Con Santana URINE MICROSCOPIC ONLYon BACTERIA MODERATE Abnormal NONE SEEN [facility] Comment on above: Performed By: #### Anaya JAVIER UMICRO #### [facility] [address] [place] [address] Dr. Con Santana Bacteria identified Cx Nom (U) INDICATED Normal [facility] Comment on above: Performed By: #### Anaya JAVIER UMICRO #### [facility] [address] [place] [address] Dr. Con Santana CAST NONE SEEN Normal NONE SEEN [facility] Comment on above: Performed By: #### Anaya JAVIER UMICRO #### [facility] [address] [place] [address] Dr. Con Santana Crystals LM Nom (Urine sed) NONE SEEN Normal NONE SEEN [facility] Comment on above: Performed By: #### Anaya JAVIER UMICRO #### [facility] [address] [place] [address] Dr. Con Santana Epithelial cells LM Ql (Urine sed) FEW Abnormal NONE SEEN /RARE [facility] Comment on above: Performed By: #### Anaya JAVIER UMICRO #### [facility] [address] [place] [address] Dr. Con Santana MUCOUS NONE SEEN Normal NONE SEEN [facility] Comment on above: Performed By: #### E RUR, UMICRO #### [facility] [address] [address] [address] Con Santana RBC 2-5 Abnormal 0-2 [facility] Comment on above: Performed By: #### E RUR, UMICRO #### [facility] [address] [place], [place] [address] Dr. Con Santana WBC 20-50 Abnormal NONE SEEN [facility] Comment on above: Performed By: #### E RUR, UMICRO #### [facility] [address] [place], [place] [address] Dr. Con Santana XR CHEST 1 Von [...] by: ELEAZAR GUERRA Date: 2022-12-20 05:55 Normal [facility] XR DEXA BONE DENSITYon 07-10 XR DEXA BONE DENSITY DEXA Bone Density Study CLINICAL: Evaluate bone mineral density. Postmenopausal COMPARISON: None FINDINGS: The bone density study was assessed by dual-energy x-ray absorptiometry with the [employer] scanner. The test results are expressed in [...] MATI ATKINS Date: 2022-07-10 16:49 Normal [facility] BNPon 02-14-2022 Natriuretic peptide B (Bld) [Mass/Vol] 1479.0 pg/mL Normal <=1,800.0 [facility] Comment on above: Performed By: #### LISA INTERIANO #### [facility] [address] [place] [address] Dr. Con Santana CBC AUTO DIFFon 02-14-2022 BASO # 0.1 103/ul Normal 0.0-0.1 [facility] Comment on above: Performed By: #### C BC #### [facility] [address] [place] [address] Dr. Con Santana Basophils/100 WBC (Bld) 0.9 % Normal 0.2-2.0 [facility] Comment on above: Performed By: #### C BC #### [facility] [address] [place] [address] Dr. Con Santana EO # 1.0 103/ul Critically high 0.0-0.7 [facility] Comment on above: Performed By: #### C BC #### [facility] [address] [place] [address] Dr. Con Santana Eosinophils/100 WBC (Bld) 16.2 % Critically high 0.9-7.0 [facility] Comment on above: Performed By: #### C BC #### [facility] [address] [place] [address] Dr. Con Santana Erythrocyte distribution width (RBC) [Ratio] 12.7 % Normal 11.0-15.0 [facility] Comment on above: Performed By: #### C BC #### [facility] [address] [place] [address] Dr. Con Santana Hematocrit (Bld) [Volume fraction] 39.6 % Normal 36.0-48.0 [facility] Comment on above: Performed By: #### C BC #### [facility] [address] [place] [address] Dr. Con Santana Hemoglobin (Bld) [Mass/Vol] 12.9 g/dL Normal 12.0-16.0 [facility] Comment on above: Performed By: #### C BC #### [facility] [address] [place] [address] Dr. Con Santana IG # 0.02 10e3/ul Normal 0.00-0.03 [facility] Comment on above: Performed By: #### C BC #### [facility] [address] [place] [address] Dr. Con Santana IG % 0.3 % Normal 0.0-0.5 [facility] Comment on above: Performed By: #### C BC #### [facility] [address] [place] [address] Dr. Con Santana LYMPH # 2.6 103/ul Normal 1.2-3.8 [facility] Comment on above: Performed By: #### C BC #### [facility] [address] [place] [address] Dr. Con Santana Lymphocytes/100 WBC (Bld) 40.2 % Normal 20.5-60.0 [facility] Comment on above: Performed By: #### C BC #### [facility] [address] [place] [address] Dr. Con Santana MANUAL DIFF REQ NO Normal [facility] Comment on above: Performed By: #### C BC #### [facility] [address] [place] [address] Dr. Con Santana MCH (RBC) [Entitic mass] 31.5 pg Normal 26.7-34.0 [facility] Comment on above: Performed By: #### C BC #### [facility] [address] [place] [address] Dr. Con Santana MCHC (RBC) [Mass/Vol] 32.6 g/dL Normal 29.9-35.2 [facility] Comment on above: Performed By: #### C BC #### [facility] [address] [place] [address] Dr. Con Santana MCV (RBC) [Entitic vol] 96.6 fL Normal 81.0-99.0 [facility] Comment on above: Performed By: #### C BC #### [facility] [address] [place] [address] Dr. Con Santana MONO # 0.5 103/ul Normal 0.3-0.8 [facility] Comment on above: Performed By: #### C BC #### [facility] [address] [place] [address] Dr. Con Santana Monocytes/100 WBC (Bld) 8.4 % Normal 1.7-12.0 [facility] Comment on above: Performed By: #### C BC #### [facility] [address] [place] [address] Dr. Con Santana NEUT # 2.2 103/ul Normal 1.4-6.5 [facility] Comment on above: Performed By: #### C BC #### [facility] [address] [place] [address] Dr. Con Santana Neutrophils/100 WBC (Bld) 34.0 % Critically low 43.0-75.0 [facility] Comment on above: Performed By: #### C BC #### [facility] [address] [place] [address] Dr. Con Santana Platelet mean volume (Bld) [Entitic vol] 9.8 fL Normal 9.5-13.5 [facility] Comment on above: Performed By: #### C BC #### [facility] [address] [place] [address] Dr. Con Santana PLT 270 103/ul Normal 150-450 [facility] Comment on above: Performed By: #### C BC #### [facility] [address] [place] [address] Dr. Con Santana RBC 4.10 106/ul Critically low 4.20-5.40 [facility] Comment on above: Performed By: #### C BC #### [facility] [address] [place] [address] Dr. Con Santana WBC 6.3 103/ul Normal 4.0-11.0 [facility] Comment on above: Performed By: #### C BC #### [facility] [address] [place] [address] Dr. Con Santana Covid-19 PCR ([facility])on 01-27 SARS-CoV-2 (COVID-19) RNA JEANE+probe Ql (Unsp spec) Not detected Normal NOT DETECTED [facility] Comment on above: Result Comment: When [...] for this test is supported by the [place] of Health and Human Service's declaration that [...] used). Performed By: #### C BC #### [facility] [address] [place] [address] Dr. Con Santana INFLUENZA A AND B [facility] 02-14 [facility] SEE BELOW Normal [facility] Comment on above: Result Comment: Nega tive for Flu A protein angiten. Infection due to Flu A cannot be ruled out. Flu A angiten in the sample may be below the detection limit of the test. Performed By: #### C BC #### [facility] [address] [place] [address] Dr. Con Sant[facility] SEE BELOW Normal [facility] Comment on above: Result Comment: Nega tive for Flu B protein antigen. Infection due to Flu B cannot be ruled out. Flu B antigen in the sample may be below the detection limit of the test. Performed By: #### C BC #### [facility] [address] [place] [address] Dr. Con Santana INFLUENZA A AG Negative Normal NEGATIVE SEE COMMENT [facility] Comment on above: Performed By: #### C BC #### [facility] [address] [place] [address] Dr. Con Santana INFLUENZA B AG Negative Normal NEGATIVE SEE COMMENT [facility] Comment on above: Performed By: #### C BC #### [facility] [address] [place] [address] Dr. Con Santana INTERNAL CONTROLS Within Normal Limits Normal Wi thin Normal Limits [facility] Comment on above: Performed By: #### C BC #### [facility] [address] [address] [address] Con Santana PROF 14(COMP METB)on 022 Albumin [Mass/Vol] 3.1 g/dL Critically low 3.4-5.0 [facility] Comment on above: Performed By: #### H STROPN #### [facility] [address] [address] [address] Con Santana Albumin/Globulin [Mass ratio] 1.0 {ratio} Normal [facility] Comment on above: Performed By: #### H STROPN #### [facility] [address] [place] [address] Dr. Con Santana ALP [Catalytic activity/Vol] 88 U/L Normal 46-116 [facility] Comment on above: Performed By: #### H STROPN #### [facility] [address] [address] [address] Con Santana ALT [Catalytic activity/Vol] 26 U/L Normal 14-59 [facility] Comment on above: Performed By: #### H STROPN #### [facility] [address] [place] [address] Dr. Con Santana Anion gap [Moles/Vol] 11.2 mmol/L Normal [facility] Comment on above: Performed By: #### H STROPN #### [facility] [address] [place] [address] Dr. Con Santana AST [Catalytic activity/Vol] 24 U/L Normal 15-37 [facility] Comment on above: Performed By: #### H STROPN #### [facility] [address] [address] [address] Con Santana Bilirubin [Mass/Vol] 0.6 mg/dL Normal 0.2-1.0 [facility] Comment on above: Performed By: #### H STROPN #### [facility] [address] [place] [address] Dr. Con Santana Calcium [Mass/Vol] 8.4 mg/dL Critically low 8.5-10.1 [facility] Comment on above: Performed By: #### H STROPN #### [facility] [address] [address] [address] Con Santana Chloride [Moles/Vol] 106 mmol/L Normal 98-107 [facility] Comment on above: Performed By: #### H STROPN #### [facility] [address] [address] [address] Con Santana CO2 [Moles/Vol] 27.0 mmol/L Normal 21.0-32.0 [facility] Comment on above: Performed By: #### H STROPN #### [facility] [address] [place] [address] Dr. Con Santana Creatinine [Mass/Vol] 0.71 mg/dL Normal 0.55-1.02 [facility] Comment on above: Performed By: #### H STROPN #### [facility] [address] [place] [address] Dr. Con Santana EGFR-AF MONTENEGRIN >60 Normal >=60 [facility] Comment on above: Performed By: #### H STROPN #### [facility] [address] [place] [address] Dr. Con Santana EGFR-NON AF MONTENEGRIN >60 Normal >=60 [facility] Comment on above: Performed By: #### H STROPN #### [facility] [address] [place] [address] Dr. Con Santana Globulin (S) [Mass/Vol] 3.1 g/dL Normal [facility] Comment on above: Performed By: #### H STROPN #### [facility] [address] [place] [address] Dr. Con Santana Glucose [Mass/Vol] 104 mg/dL Normal 74-106 [facility] Comment on above: Performed By: #### H STROPN #### [facility] [address] [place] [address] Dr. Con Santana Potassium [Moles/Vol] 3.2 mmol/L Critically low 3.5-5.1 [facility] Comment on above: Performed By: #### H STROPN #### [facility] [address] [address] [address] Con Santana Protein [Mass/Vol] 6.2 g/dL Critically low 6.4-8.2 [facility] Comment on above: Performed By: #### H STROPN #### [facility] [address] [address] [address] Con Santana Sodium [Moles/Vol] 141 mmol/L Normal 136-145 [facility] Comment on above: Performed By: #### H STROPN #### [facility] [address] [address] [address] Con Santana Urea nitrogen [Mass/Vol] 13.0 mg/dL Normal 7.0-18.0 [facility] Comment on above: Performed By: #### H STROPN #### [facility] [address] [address] [address] Con Santana Urea nitrogen/Creatinine [Mass ratio] 18.3 mg/mg Normal [facility] Comment on above: Performed By: #### H STROPN #### [facility] [address] [address] [address] Con Santana TROPONIN, HIGH SENSITIVITYon 02-14-2022 HSTROP 20.9 pg/mL Normal 4.0-51.3 [facility] Comment on above: Result Comment: CUT- OFF POINTS HAVE BEEN ESTABLISHED BASED ON THE FOURTH UNIVERSAL DEFINITIONS OF MYOCARDIAL INFARCTION. THE UPPER REFERENCE LIMIT (URL) OF TROPONIN, DEFINED THE 99TH PERCENTILE OF cTnI DISTRIBUTION IN A REFERENCE POPULATION, HAS BEEN CONFIRMED THE DECISION THRESHOLD FOR VT DIAGNOSIS. Performed By: #### E RUR, UMICRO #### [facility] [address] [address] [address] Con Santana XR CHEST 1 Von [...] by: KAROL VARELA Date: 2022-02-14 09:36 Normal [facility] XR chest 2V*on 01-15-2019 XR chest 2V* [facility] [place] [address] [place] [address] XRay Report Signed Patient: Salome Dominguez MR#: [id number] : 1940 Acct:[id number] Age/Sex: 78 / F ADM Date: 01/15/19 Loc: XDUCLY Room: Type: [facility] Attending Dr: Jack JAMES Ordering Provider: Jack [...] Maximiliano Campos M.D.01/15/2019 11:38 AM Dictation Location: [facility] Transcribed By: [facility] 01/15/19 1138 Dictated By: Maximiliano Campos II, MD 01/15/19 1137 Signed By: 01/15/19 1138 Normal [facility] XR SHOULDER RIGHT TRAUMA SER IESon 08-21-2017 [...] Body height 158.75 cm Effie Jackman Other [email or web address] Other 10-12-2023 11:00-0500 Body mass index (BMI) [Ratio] 18.18 kg/m2 Effie Jackman Other [email or web address] Other 10-12-2023 11:00-0500 Body weight 45.81 kg Effie Jackman Other [email or web address] Other 10-12-2023 11:00-0500 Diastolic blood pressure 64 mm[Hg] Effie Jackman Other [email or web address] Other 10-12-2023 11:00-0500 SaO2% (BldA) [Mass fraction] 97 % Effie Jackman Other [email or web address] Other 10-12-2023 11:00-0500 Systolic blood pressure 118 mm[Hg] Effie Jackman Other [email or web address] Other Encounters Encounter Date Encounter Type Care Provider Facility Start: 04-11-2024 End: 04-11-2024 ambulatory [facility] Start: 04-05-2024 Evaluation and management of inpatient [facility] Start: 04-04-2024 Evaluation and management of inpatient [facility] Start: 04-04-2024 Evaluation and management of inpatient CAMILLE GRIFFIN [facility] Start: 04-01-2024 Emergency department patient visit FELICIA MEDINA [facility] Start: 04-01-2024 End: 04-05-2024 Evaluation and management of inpatient MIREYA TOLENTINO [facility] Start: 04-01-2024 End: 04-01-[address] [facility] Start: 03-30-2024 End: 03-30-2024 ambulatory MICHAELA RICHARDSON Not Available Start: 03-22-2024 End: 03-22-2024 ambulatory JUANA MCDANIELS Not Available Start: 03-16-2024 End: 03-17-2024 ambulatory MICHAELA RICHARDSON Not Available Start: 12-31-2023 End: 12-31-2023 ambulatory MICHAELA Lewis RICHARDSON Not Available Start: 11-18-2023 End: 11-18-2023 ambulatory MICHAELA RICHARDSON Not Available Start: 10-27-2023 End: 10-27-2023 ambulatory Effie Augustina Other [email or web address] Other Start: 10-27-2023 Telephone encounter Effie Jackman [facility] Start: 10-16-2023 End: 10-16-2023 ambulatory Effie Jackman Other [email or web address] Other Start: 10-16-2023 Telephone encounter Effie Jackman [facility] Start: 10-15-2023 End: 10-15-2023 ambulatory Effie Jackman Other [email or web address] Other Start: 10-15-2023 Telephone encounter Effie Jackman [facility] Start: 10-12-2023 Office outpatient visit 25 minutes Effie Jackman [facility] Start: 10-12-2023 Telephone encounter Effie Jackman [facility] Start: 10-12-2023 End: 10-12-2023 ambulatory NICHOLAS H ABIGAIL [employer] Other Start: 10-01-2023 End: 10-01-2023 ambulatory MICHAELA RICHARDSON Not Available Start: 08-05-2023 End: 08-05-2023 ambulatory Effie Jackman Other [email or web address] Other Start: 08-05-2023 Telephone encounter Effie Jackman [facility] Start: 05-14-2023 End: 05-14-2023 ambulatory Effie Jackman Other [email or web address] Other Start: 05-14-2023 Telephone encounter Effie Jackman [facility] Start: 03-30-2023 End: 03-30-2023 ambulatory Effie Jackman Other [email or web address] Other Start: 03-30-2023 Telephone encounter Effie Jackman [facility] Start: 03-27-2023 End: 03-27-2023 ambulatory Effie Jackman Other [email or web address] Other Start: 03-27-2023 Telephone encounter Effie Jackman [facility] Start: 12-29-2022 End: 01-01-2023 Evaluation and management of inpatient DR JANI MORENO Facility:[facility] Start: 12-22-2022 End: 12-22-2022 Evaluation and management of inpatient DR JANI MORENO Facility:[facility] Start: 07-10-2022 End: 07-11-[address] JANI MORENO Facility:[facility] Start: 02-14-2022 End: 02-14-[address] JANI MORENO Facility:[facility] Start: 01-15-2019 End: 01-15-2019 Patient encounter procedure Jack Sanches Facility:[facility] Start: 11-20-2017 End: 11-21-2017 Ambulatory CHITO PHYSICIAN Facility:[facility] Start: 08-21-2017 End: 08-21-2017 Emergency department patient visit JACK PINA [facility] Start: 05-07-2017 End: 05-08-2017 Ambulatory DANIELLE COFFMAN Facility:[facility] Immunizations Immunization Date Immunization Notes Care Provider Roberta webb 07-03-2023 influenza, high dose seasonal, preservative-free Effie Jackman Other [email or web address] Other Payers Date Payer Category Payer Unknown [id number] 2017 Self-pay 2014 Unknown [id number] 2003 Medicare [id number] 1959 Unknown [id number] 1940 Unknown [id number] 2.16.84 [id number] 1940 Unknown [id number] 2.16.84 [id number] 1938 Unknown [id number] 2.16.84 [id number] 1938 Unknown [id number] 2.16.84 [id number] 1938 Unknown [id number] 2.16.84 [id number] 1938 Unknown [id number] 2.16.84 [id number] 1938 Unknown [id number] 2.16.84 [id number] 1938 Unknown [id number] 2.16.84 [id number] 1938 Unknown [id number] 2.16.84 [id number] 1938 Unknown [id number] 2.16.84 [id number] 1938 Unknown [id number] 2.16.840 .[id number] Medicare [id number] Unknown Unknown [id number] 2.16.84 [id number] Social History Date Type Detail Facility Unknown if ever smoked [email or web address] Other Sex Assigned At Sex Assigned At Bir th [email or web address] Other Clinical Notes 03-27-2023 to 04-11-2024 Note Date & Type Note Facility 04-11-2024 Note [facility] Note Reason for cardiology visit: Patient here for wound check s/p PPM implant on 04/04/[address] Richards. The patient does not have any complaint. She feels much better. The site of the device implant appears to be healing very well. There is no hematoma or swelling or oozing or redness and the incision appears to be healing very well The patient's son who was with her advised that she can take a shower standing in about 3 to 4 days. He was advised not to sit in a bathtub.. Patient does not drive. Patient to follow-up with cardiology nurse practitioner on 04/29/2020 Padmini Billings MD, [facility] 04-05-2024 Note Adult Nutrition Asse ssment: Name: Salome Dominguez Date: 1940 Date of Visit: 04/05/24 Admission Dx: Third degree heart block (CMS/HCC) [I44.2] s/p PPM Reason for assessment: high risk low BMI Information obtained from: patient, medical record, and nursing Past Medical History: Diagnosis Date Abnormal ECG Alzheimer disease (CMS/HCC) Asthma Atrial fibrillation (CMS/HCC) Bradycardia COPD (chronic obstructive pulmonary disease) (CMS/HCC) Dementia (CMS/HCC) Hypothyroidism RLS (restless legs syndrome) Current Medications: doxycycline, 100 mg, oral, BID enoxaparin, 40 mg, subcutaneous, Daily levothyroxine, 75 mcg, oral, Daily nymkxb-owjcirrr-munivby, 1 capsule, oral, TID with meals metoprolol succinate XL, 12.5 mg, oral, Daily olopatadine, 1 drop, Both Eyes, BID pantoprazole, 40 mg, oral, Daily Labs: 0 Lab Value Date/Time BUN 19 04/01/2024 190 CREATININE 0.83 04/01/2024 1905 NA 135 (L) 04/01/2024 1905 K 4.3 04/01/2024 190 HGB 9.8 (L) 04/05/2024 0541 WBC 4.03 04/01/2024 1905 I/O: Intake/Output Summary (Last 24 hours) at 04/05/2024 1301 Last data filed at 04/05/2024 0747 Gross per 24 hour Intake 640 ml Output 15 ml Net 625 ml Allergies: Allergies Allergen Reactions Psyllium Anaphylaxis, Rash and Unknown Nutrition Problems: Swallowing Assessment: denies dysphagia Mouth: full set of dentures, fit well Abdominal Assessment: Last BM 04/04/24, h/o IBS, diarrhea, s/p gastric bypass 1975 per clinic record, presumably the indication for Creon Appetite: good Geriatric feeding skills: Ability to prepare meals, Ability to feed oneself, Able to drive and access food, and Ability to sense hunger Physical findings: frail Skin Integrity: incision chest, wound R upper face Anthropometrics: Height: 167.6 cm (5' 6 ) Weight: 41.2 kg (90 lb 13.3 oz) BMI (Calculated): 14.67 Wt change: 45.4 kg (03/22/24) Neurology office visit 45.8 kg (10/12/23) clinic 66.6 kg (2009) Pt reports 6# wt loss past 6 months but further weight loss has ceased since starting to take ONS BID past couple of months. IBW: 59 kg Low BMI: <20 if >/= 70 yrs old (severe GLIM criteria) Nutrition Assessment: Lives in assisted living apartment with her . Denies food insecurity. Daughter & HHC (twice per week) assist. B12 1000 mcg daily. B-toast with jam, coffee, sometimes dry cereal L-may skip or soup with crackers, Pepsi Mid afternoon-Boost or Ensure D-Roast Beef or Ham loaf 2-3 oz, coffee or Pepsi HS-Boost or Ensure Dietary Orders (From admission, onward) Start Ordered 04/04/24 1515 Regular Diet Diet effective now Question: Room Service? Answer: Yes 04/04/24 1514 04/03/24 1233 Special Kitchen Request Once Comments: Grilled cheese on wheat, vanilla ice, fruit cup, 2 diet coke 04/03/24 1235 04/03/24 0824 Special Kitchen Request Once Comments: Zay 2 qatari toast, butter and syrup.turkey sausage, grits with brown sugar and butter, raspberry frisian,orange juice and coffee, cream and sugar 04/03/24 0826 04/02/24 1302 Special Kitchen Request Once Comments: Zay send hot roast beef sandwich, mashed potatoes and gravy, Chicken noodle soup, Ramos pie,diet cola, cottage cheese 04/02/24 1303 Meal Intakes: no meals recorded Nutrition Risk: High Nutrition Needs: Needs based on: actual body weight Calorie needs: 9725-8405 kcals/day based on Equation: 25-30 kcal/kg MSJ x 1,7=8289 flori Protein needs: 41-49 g/day based on 1-1.2 g/kg Fluid needs: 1200 ml/day Nutrition Diagnosis: Chronic PCM related to chronic illness as evidenced by physical s/s loss of muscle & adipose. Malnutrition Assessment: Malnutrition Assessment (Completed by RD) Severe PCM: Chronic Illness: severe loss of subcutaneous fat, severe muscle loss (muscle-temporal, scapula, clavicle (severe) adipose-triceps, orbital, ribs (severe)) Nutrition Treatment and Intervention Plan Treatment & Intervention Plan: RD to change supplement, monitor intakes and adjust recommendations as needed Nutrition Goals: intake > 75% meals, intake > 75% supplements, wt maintenance, maitain visceral protein Nutrition Goals: intake > 75% meals, intake > 75% supplements, wt maintenance, maitain visceral protein Inflammation: Hand Grasp/Motor Function/Sensation Assessment: Grasp, Dorsiflexion, Plantar flexion R Hand Grasp: Weak L Hand Grasp: Weak (Supervisor Grower strength not assessed by RD) Treatment Plan: Continue liberalized diet Discussed with pt ways to increase nutrient density Boost+ vanilla or strawberry BID Mvi with iron Vit D level Contact the dietitian via [employer] chat 8A-4P Thursday through Thursday or call extension [phone]. For weekends & holidays, the dietitian can be reached via pager [phone] from 9A-3P. Unable to respond to [employer] messages on Thursday & . [facility] 04-05-2024 Note Hospital Medicine Discharge Summary Final Discharge Diagnosis: Complete heart block Severe PCM: due to Chronic Illness as evident by severe loss of subcutaneous fat, severe muscle loss (muscle-temporal, scapula, clavicle (severe) adipose-triceps, orbital, ribs (severe)) Admission Diagnosis: Third degree heart block (CMS/HCC) [I44.2] Hospital course: Salome Dominguez is a 83 y.o. female with history of dementia, paroxysmal A-fib, hypothyroidism was referred from cardiology clinic due to complete heart block the patient went evaluation for lethargy generalized weakness. No reported syncope or presyncope. BP was mildly elevated. EKG showed junctional escape rhythm ranging between 35 and 45. Patient being admitted to the hospital for permanent pacemaker placement. Patient underwent implementation of dual-chamber pacemaker, [employer] on 04/04 and did fairly well. instructions of her activities per EP team. Patient stable to be discharged today after chest x-ray and device interrogation patient to follow-up with cardiology EP as scheduled Dear Dr. Augustina MD, Salome is advised to follow up with you within 1-2 weeks. Follow-up with: Cardiology, EP Scheduled appointments: Future Appointments Date Time Provider Department Center 04/11/2024 9:40 AM [facility] 04/29/2024 1:40 PM Sammie Miles NP [facility] Your medication list START taking these medications Instructions Last Dose Given Next Dose Due doxycycline 100 mg capsule Commonly known as: Vibramycin Take 1 capsule (100 mg) by mouth in the morning and at bedtime for 27 doses. Take with at least 8 ounces (large glass) of water, do not lie down for 30 minutes after HYDROcodone-acetaminophen 5-325 mg tablet Commonly known as: Viola Take 1 tablet by mouth every 6 (six) hours if needed for severe pain (8-10 pain score) for up to 3 days. metoprolol succinate XL 25 mg 24 hr tablet Commonly known as: Toprol-XL Take 0.5 tablets (12.5 mg) by mouth in the morning. Do not crush or chew. CONTINUE taking these medications Instructions Last Dose Given Next Dose Due albuterol 90 mcg/actuation inhaler Creon 3,000-9,500- 15,000 unit capsule Generic drug: ffsrnw-xuvkkxwn-buifbij levothyroxine 75 mcg tablet Commonly known as: Synthroid, Levoxyl Vitamin B-12 1,000 mcg tablet Generic drug: cyanocobalamin Where to Get Your Medications These medications were sent to [facility]/pharmacy #[id number] - [address] [id number] doxycycline 100 mg capsule metoprolol succinate XL 25 mg 24 hr tablet You can get these medications from any pharmacy Bring a paper prescription for each of these medications HYDROcodone-acetaminophen 5-325 mg tablet Salome is allergic to psyllium. Disposition: Home-Health Care [facility] () Discharge Condition: Stable Code Status: Full Code Diagnostic Results Hematology: Results from last 7 days Lab Units 04/05/24 0541 04/01/24 1905 WBC AUTO 10*3/uL -- 4.03 HEMOGLOBIN g/dL 9.8* 9.8* HEMATOCRIT % 29.6* 31.3* MCV fL -- 98.7* PLATELETS AUTO 10*3/uL -- 177 INR -- 1.18* Chemistry: Results from last 7 days Lab Units 04/01/24 1905 SODIUM mmol/L 135* POTASSIUM mmol/L 4.3 CHLORIDE mmol/L 112* CO2 mmol/L 18* BUN mg/dL 19 CREATININE mg/dL 0.83 GLUCOSE mg/dL 91 CALCIUM mg/dL 8.0* No lab exists for component: AFIO2 , APHT , APCOT , APOT , ATCO2 , CK , ALB , IBILI Diet at the time of discharge: regular diet and cardiac diet Activity: Normal activity as tolerated. Plz follow post pacer activity instruction Objective Blood pressure 116/70, pulse 93, temperature 36.4 ???C (97.5 ???F), temperature source Temporal, resp. rate 19, height 1.676 m (5' 6 ), weight 41.2 kg (90 lb 13.3 oz), SpO2 94 %. General: Alert and in no acute distress Cardiology: Normal rate, regular rhythm. Lungs: Clear to auscultation, no wheezes, rales or rhonchi, symmetric air entry. Abdomen: Soft, non tender, non distended. Extremities: No pitting edema. Left arm in a sling Neurology: No focal neuro deficit noted. confused Total time for discharge - review of data, exam, discussion with providers and care-team, med-rec and orders, arranging follow up, counseling of patient and/or family and documentation was 60 minutes. Signed Mireya Tolentino MD Hospital Medicine 04/05/2024 12:16 PM [facility] 04-05-2024 Note Occupational Therapy Occupational Therapy Evaluation Patient Name: Salome Dominguez : 1940 Today's Date: 04/05/2024 Time In: 1056 Time Out: 1136 Patient's daughter reports that patient had bradycardia for years but now it got worse. Her heart rate was in 50s and 60s but now it is down to 30's. Patient's only symptoms are occasional shortness of breath and she gets tired easily that is why she does not do a lot at home . Implantation of dual chamber PPM([employer]): submuscular implant 04/04/24 General Subjective: friendly and cooperative questionable reliability as an accurate historian Patient Active Problem List Diagnosis Abdominal pain, left lower quadrant Acute combined systolic and diastolic heart failure ([facility]/HCC) Age related osteoporosis Dementia ([facility]CC) Anxiety disorder, unspecified Asymptomatic varicose veins Ataxic gait Bacterial overgrowth syndrome Biliary cirrhosis (CMS/HCC) Bladder atonia Cardiomegaly Chronic fatigue, unspecified Chronic insomnia Chronic obstructive pulmonary disease with (acute) exacerbation (CMS/HCC) Coronary atherosclerosis Decreased estrogen level Diabetes mellitus (CMS/HCC) Diarrhea Diastolic dysfunction Disease of tricuspid valve Mitral valve disorder Embolism and thrombosis ([facility]/HCC) Essential (primary) hypertension Frequent falls Gastro-esophageal reflux disease without esophagitis Heartburn Hiatal hernia Hypokalemia Hypothyroidism Incontinence of feces Inguinal hernia, bilateral H/O gastric bypass Intestinal malabsorption, unspecified Lesion of skin of scalp Long-term use of high-risk medication Loss of weight Migraine, unspecified, not intractable, without status migrainosus Moderate episode of recurrent major depressive disorder (CMS/HCC) Moderate persistent asthma without complication Myositis Nausea with vomiting Nonrheumatic aortic valve stenosis Osteoarthritis of lumbar spine Osteoarthrosis, hand Other congenital valgus deformity of feet Other seborrheic keratosis Paroxysmal atrial fibrillation ([facility]/HCC) Pure hypercholesterolemia Restless legs syndrome Sensorineural hearing loss, bilateral Transient cerebral ischemia Bradycardia Complete heart block ([facility]/HCC) Murmur, heart SERRANO (dyspnea on exertion) Third degree heart block ([facility]) Past Medical History: Diagnosis Date Abnormal ECG Alzheimer disease (CMS/HCC) Asthma Atrial fibrillation (CMS/HCC) Bradycardia COPD (chronic obstructive pulmonary disease) (CMS/HCC) Dementia ([facility]/HCC) Hypothyroidism RLS (restless legs syndrome) Past Surgical History: Procedure Laterality Date ANKLE SURGERY APPENDECTOMY BACK SURGERY CATARACT EXTRACTION CHOLECYSTECTOMY FOOT SURGERY GASTRIC BYPASS HIP SURGERY HYSTERECTOMY MOUTH SURGERY TOE SURGERY TONSILLECTOMY Precautions Precautions Medical Precautions: fall risk, pacemaker (left chest wall) Pain Pain Assessment Pain Score: 6 (pacer site) Cognition Cognition Overall Cognitive Status: Impaired Arousal/Alertness: Generalized responses Orientation Level: Oriented to person, Oriented to time, Oriented to place Following Commands: Follows one step commands without difficulty Safety Judgment: (not impulsive) Awareness of Errors: Assistance required to identify errors made (for new pacer precautions) Attention Span: Appears intact Memory: Decreased short term memory Problem Solving: Assistance required to generate solutions Communication: Intact Cognition Comments: (questionable executive function) General Assessment General Assessment Hearing: (mild [place]) Hand Dominance: Right Home Living Home Living Type of Home: Senior apartment ([facility]) Lives With: Spouse Home Adaptive Equipment: Walker rolling, Cane (sc, gb, hhs) Home Layout: One level Home Access: Level entry Bathroom Shower/Tub: Walk-in shower Prior Level of Function Prior Function Level of Miner: Independent with ADLs and functional transfers, Independent with homemaking with ambulation (drives) Prior Functional Mobility: Independent without device Prior IADLs IADL History Homemaking Responsibilities: Yes Dynamic Sitting Balance Dynamic Sitting Balance Dynamic Sitting Balance-Level of Assistance: Independent Static Standing Balance Static Standing Balance Static Standing-Level of Assistance: Independent Dynamic Standing Balance Dynamic Standing Balance Dynamic Standing Balance-Level of Assistance: Close supervision ADL ADL UE Dressing Assistance: Minimal LE Dressing Assistance: Minimal Transfers Transfers Transfer: (SBA supine to sit EOB , indep sit to stand, SBA :: 80 feet, standing five minutes , and sit into chair) Objective General Assessments Activity Tolerance Endurance: Stage II Vision - Basic Assessment Current Vision: No visual deficits Sensation Light [employer]c (more content not included)... [facility] 04-05-2024 Note [facility]TP CARDIOLOGY INPAT IENT PROGRESS NOTE Reason for follow up: heart block s/p PPM, new HFrEF Subjective HPI: Salome Dominguez is a 83 y.o. female with history of dementia, paroxysmal A-fib, hypothyroidism was referred from cardiology clinic due to complete heart block the patient went evaluation for lethargy generalized weakness she denies syncope or presyncope, her blood pressure was elevated, no hypotension, she has junctional escape rhythm ranging between 35 and 45, patient is admitted to the hospital for close observation. She underwent permanent pacemaker implant on Thursday04/04/24. Interval: Patient up in chair. Denies pain to PPM site. Denies cp, sob, edema, dizziness/LH. CXR and device interrogation WNL. Patient informed of finding of reduced EF on TTE from yesterday, EF 35%. She is asymptomatic, no edema. Discussed with patient plan for outpatient ischemic workup. Tele: [facility], ALLERGIES Allergies Allergen Reactions Psyllium Anaphylaxis, Rash and Unknown CURRENT MEDS doxycycline, 100 mg, oral, BID enoxaparin, 40 mg, subcutaneous, Daily levothyroxine, 75 mcg, oral, Daily rlsedd-swpjlpmo-pwasicf, 1 capsule, oral, TID with meals olopatadine, 1 drop, Both Eyes, BID pantoprazole, 40 mg, oral, Daily PRN medications: acetaminophen, albuterol, alum-mag hydroxide-simeth, HYDROcodone-acetaminophen, hydrOXYzine pamoate, melatonin, sennosides-docusate sodium Objective Patient Vitals for the past 24 hrs: BP Temp Temp src Pulse Resp SpO2 Weight 04/05/24 0712 116/70 36.4 ???C (97.5 ???F) Temporal 93 19 -- -- 04/05/24 0400 105/56 36.6 ???C (97.9 ???F) Temporal 90 17 94 % 41.2 kg (90 lb 13.3 oz) 04/05/24 0000 100/55 36.7 ???C (98 ???F) Temporal 82 14 96 % -- 04/04/24 2037 101/56 -- -- 85 21 -- -- 04/04/24 1936 91/53 36.7 ???C (98.1 ???F) Temporal 78 15 94 % -- 04/04/24 1800 92/53 -- -- 78 15 95 % -- 04/04/24 1700 115/58 -- -- 77 17 98 % -- 04/04/24 1630 107/54 -- -- 82 20 98 % -- 04/04/24 1600 112/52 -- -- 80 17 100 % -- 04/04/24 1545 110/56 -- -- 86 20 97 % -- 04/04/24 1530 109/66 -- -- 87 21 96 % -- 04/04/24 1515 99/79 -- -- 89 18 94 % -- 04/04/24 1500 107/60 -- -- 90 21 92 % -- 04/04/24 1446 109/65 -- -- 95 19 96 % -- 04/04/24 1311 -- -- -- -- -- 99 % -- 04/04/24 1309 119/52 -- -- (!) 35 21 99 % -- 04/04/24 1200 91/57 36.8 ???C (98.2 ???F) Temporal (!) 35 24 99 % -- 04/04/24 1000 (!) 113/48 -- -- (!) 34 21 96 % -- 04/04/24 0956 (!) 99/41 36.8 ???C (98.2 ???F) Temporal (!) 36 21 -- -- BP 116/70 (BP Location: Right arm, Patient Position: Lying) Pulse 93 Temp 36.4 ???C (97.5 ???F) (Temporal) Resp 19 Ht 1.676 m (5' 6 ) Wt 41.2 kg (90 lb 13.3 oz) SpO2 94% BMI 14.66 kg/m??? Wt Readings from Last 3 Encounters: 04/05/24 41.2 kg (90 lb 13.3 oz) 04/01/24 45.4 kg (100 lb) General: Pleasant, Awake, alert, appropriate mood/affect, NAD Eyes: anicteric sclera. Non-injected conjunctiva. Neck: No elevated JVP. Pulm: Breath sounds clear to ascultation bilaterally with no wheeze, crackles or rhonchi Cards: HRRR,, NL S1, S2. No S3 or S4 gallop. Murmur: systolic, RUSB 2/6 Abd: Soft, Nontender, physiologic bowel sounds are present Extr: Lower extremity edema: none. DP pulses present bilaterally Skin: warm, dry, well perfused. Left subclavian pacemaker site covered with pressure dressing. No drainage, edema, no hematoma, crepitus. Radial pulse left +2. Neuro: A&Ox3, No gross deficits Lab Results Component Value Date NA 135 (L) 04/01/2024 K 4.3 04/01/2024 CL 112 (H) 04/01/2024 ANIONGAP 9 04/01/2024 BUN 19 04/01/2024 CREATININE 0.83 04/01/2024 CALCIUM 8.0 (L) 04/01/2024 No results found for: BILITOT , BILIDIR , ALKPHOS , AST , ALT , PROT , ALBUMIN No results found for: CHOLESTEROL , CHOLESTEROL TOTAL , TRIGLYCERIDES , HDL , LDL CHOLESTEROL , LDL DIRECT , LDL CALC Lab Results Component Value Date BNP 566 (H) 04/01/2024 Lab Results Component Value Date TSH 6.13 (H) 04/01/2024 FREE T4 0.77 04/01/2024 No results found for: DIGOXIN LVL No results found for: HGBA1C Lab Results Component Value Date WBC 4.03 04/01/2024 RBC 3.17 (L) 04/01/2024 HGB 9.8 (L) 04/05/2024 HCT 29.6 (L) 04/05/2024 MCV 98.7 (H) 04/01/2024 MCH 30.9 04/01/2024 MCHC 31.3 (L) 04/01/2024 RDW 14.2 04/01/2024 NEUTOPHILPCT 28.0 (L) 04/01/2024 LYMPHOPCT 45.9 (H) 04/01/2024 MONOPCT 11.2 04/01/2024 EOSPCT 13.9 (H) 04/01/2024 BASOPCT 1.0 04/01/2024 NEUTROABS 1.13 (L) 04/01/2024 LYMPHSABS 1.85 04/01/2024 MONOSABS 0.45 04/01/2024 EOSABS 0.56 (H) 04/01/2024 BASOSABS 0.04 04/01/2024 PLT 177 04/01/2024 NRBC 0.0 04/01/2024 XR chest 2 views Result Date: 04/05/2024 1. . Left chest wall cardiac implantable electronic device, lead tips project over the expected locations of the right atrial appendage and right ventricular apex. No pneumothorax. 2. No focal airspace disease. Slight hyperinflation. Normal cardiomediastinal (more content not included)... [facility] 04-04-2024 Note DUAL CHAMBER PACEMAK ER IMPLANT PROCEDURE NOTE DATE OF PROCEDURE: 04/04/2024 PERFORMING PHYSICIAN: Dr. Issa Richards HAND STONECUTTER: MIKE CONSENT: Patient LOCATION: [facility] [facility] PROCEDURE PERFORMED: 1. Implantation of dual chamber PPM([employer]): submuscular implant. 2. U/S venous access 3. Conscious sedation 4. Fluroscopy INDICATIONS: Complete heart block Bradycardia PROCEDURAL SEDATION: Versed and Fentanyl. Moderate sedation was administered by the sedation nurse under my supervision and noted in the CVL log. Intraprocedural face to face sedation time: 81min. Monitoring: Cardiac telemetry, Blood pressure, continuous pulse oxymetry. FLUROSCOPY: 4.2minutes 2sec/ 9mGy. EBL: 15cc SPECIMEN REMOVED: None INDICATION: 83 y.o. female with past medical history of hypothyroidism, anemia, COPD, aortic valve stenosis, asthma and dementia presented to ER per recommendation of her stoner out because of bradycardia. Patient's daughter reports that patient had bradycardia for years but got worse and in ED was noted to be with complete heart block with junctional escape at 40bpm. She was brought for PPM. PROCEDURAL DETAILS: Patient was brought to the EP lab in the post absorptive state. A procedural pause was performed identifying the patient, the precedure to be performed and the site of implant. The left chest was prepped and draped in the usual sterile fashion. Preoperative antibiotics IV was administered. Patient was placed in trendelenberg position and ultrasound was used to evaluate the patency of left axillary vein. Left axillary venous access was obtained on 3 occasions using seldinger technique using a 5 Pashto micropunture needle and exchanged for 0.034 wire. I decided to proceed with opening of the pocket. Localinfiltration of 1% Lidocaine was performed and an incision was created in the left upper chest. Dissection was then performed using cautery down. An active fixation [employer] pacing lead was then delivered via SPCC1 His sheath through the 9F sheath to the right ventricle. After confirmation of lead position on orthogonal views (CHIRINOS and LITHUANIAN) to confirm position in the septal aspect, the screw was activated. After confirmation of good sensing parameters, injury pattern and pacing thresholds, 10V pacing was done and no diaphragmatic stimulation was noted. It was then secured in the pocket using three 1-0 Silk sutures. I then proceeded to perform another septal RV lead as I observe there was no junctional escape after His lead was activated. The new RV lead was more septal and gave a narrower QRS. I decided to use the latter lead for he RV lead. Once the guiding sheaths were removed, the lead was secured in the pocket using three 0- Silk sutures. An active fixation [employer] RA pacing lead was then delivered through the 6Fsheath to the right atrial appendage. After confirmation of lead position on orthogonal views (CHIRINOS and LITHUANIAN) to confirm position in the appendage, the screw was activated. After confirmation of good sensing parameters, injury pattern and pacing thresholds, 10V pacing was done and no diaphragmatic stimulation was noted. It was then secured in the pocket using three 1-0 Silk sutures. At this stage, given the good thresholds, the backup His lead was removed. The leads were then attached to a [employer] PPM device and the leads tug tested. I proceeded to perform a submuscular pocket as he had very little subcutaneous tissue. The pectoralis was carefully dissected until a small pocket was created submuscular plane. Meticulous dissection was performed to ensure there were no bleeders. Pocket hemostasis wassecured and it was then copiously and vigorously irrigated with antiobiotic solution. The leads were wrapped under the device and the device was placed in the pocket and the device tacked to the underlying capsule as well as muscle. The muscle was approximated with silk ties. The pocket was closed in layers: subcutaneous layer using 2-0 Vicryl and skin using 3-0 Monocryl. Occlusive dressing was placed on top. Lead parameters were then rechecked through the device as noted below. The patient was returned to the short stay room for post procedural observation. No immediate procedural complications were noted. POST PROCEDURE EXAM: Patient was hemodynamically stable. COMPLICATIONS: None. IMPRESSION: 1. Successful dual chamber PPM implantation with excellent pacing and sensing parameters (Submuscular pocket) RECOMMENDATIONS: 1. Occlusive dressing to be removed after 7 days 2. Do not wet the incison for 7 days 3. No lifting heavy weights using arm on the same side. 4. Do not lift elbow above the shoulder on the same side for 4-6 weeks 5. No driving for 1 wk. 6. F/u in device clinic 2 week from discharge or sooner for any concerns 7. Doxycycline 100mg bid x 2 weeks Issa Richards Cardiac Electrophysiology [facility] 04-04-2024 Note Patient: Salome Stewart Procedure Information Date/Time: 04/04/24 1258 Procedure: Implant PPM Location: [facility] PROCESSING INSPECTOR 1 / [facility] (Cath) Providers: Issa Richards MD Clinical information reviewed: Tobacco Allergies Problems Med Hx Surg Hx OB Status Fam Hx Physical Exam Airway Mallampati: II TM distance: >3 FB Neck ROM: full Cardiovascular Dental Pulmonary Abdominal Anesthesia Plan ASA 2 CSE Anesthetic plan and risks discussed with patient. Use of blood products discussed with patient who. Additional Equipment Requests [facility] 04-04-2024 Note H&P reviewed. The lelia radford was examined and there are no changes to the H&P. I discussed the procedure in length with figures to the patient and went over the risks, benefits and alternatives of the PPM implantation procedure. I stated to the patient that the risk can be classified as major and minor complications. The minor include discomfort over the incision site, erythema. The major complications include pneumothorax, hemothorax, thromboembolism including DVT stroke systemic emboli endorgan damage and even . We also discussed the possibility of lead perforation leading to pericardial effusion or tamponade which may or may not require surgical intervention as well as the possibility of valve damage. Overall the risk of these complications ranged anywhere from 1-5%.Patient verbalized understanding and have agreed to proceed with the procedure. [facility] 04-04-2024 Note Hospital Medicine Daily Progress Note - 04/04/2024 9:43 AM; Room: [facility]/3133- Admission: 04/01/2024 5:28 PM; Length of stay: 3 days THE HOSPITALIST TEAM PREFERS TO USE [employer] CHAT FOR COMMUNICATION 7AM-7PM. IF I DO NOT RESPOND WITHIN 15 MINUTES, PLEASE PAGE ME/CALL THROUGH THE HELP DESK OPERATOR. FROM 7PM-7AM, PLEASE PAGE [phone](COVR) Code Status: Full Code Barriers to Discharge: CHB Expected Discharge Date: 1-2 days Discharge Destination: TBD Overview Salome Dominguez is an 83 yo F examined today at bedside for complete heart block with a past medical history of aortic stenosis, asthma, hypothyroidism, and dementia. She is in no acute distress, but is feeling tired today and has some dull lower back pain which she rates a 4/10. She feels like her back pain is due to being in the bed too long and gets better as she moves around. She originally presented to the ER for worsening tiredness and lightheadedness. From previous admission note, her daughter stated that she has had bradycardia for a while, but it is getting worse. Patient also states today that her symptoms have gottenworst since the first of the year. BNP (566) was elevated, but she has no signs of CHF. She denies any additional symptoms with her bradycardia outside of fatigue and lightheadedness (negative for chest pain, palpitations, dyspnea, orthopnea, pre-syncope, syncope). EKG taken at [place] on 02/10 showed first degree AV block with a heart rate of 49. EKG on 04/01 showed complete heart block with a heart rate in the 30's and idioventricular rhythm, right bundle branch block, and left anterior fascicular block. Patient is scheduled to get a pacemaker later today. Subjective Patient is examined at bedside today for complete heart block, HR in the 30's but in no acute distress. She denies any dizziness, chest pain, palpitations, orthopnea, lower leg edema, nausea, vomiting, or shortness of breath. Physical Exam GENERAL: alert and in no acute distress. HEAD: atraumatic, normocephalic. EYES: BONG, EOMI. NECK: trachea midline, no JVD present CARDIAC: S1, S2 present. RRR. RESPIRATORY: CTAB, no increased effort of breathing, no rales, rhonchi, or wheezing. ABDOMEN: soft, nontender, nondistended. EXTREMITIES: no lower extremity edema, peripheral pulses are 2+ bilaterally. No rash/skin discoloration present. NEURO: Oriented to person and place, but not to time, strength/sensation equal and symmetric in bilateral upper and lower extremities. PSYCH: appropriate mood, affect, and judgement. Review of Systems Respiratory: Negative for shortness of breath, wheezing and stridor. Cardiovascular: Negative for chest pain, palpitations and leg swelling. Gastrointestinal: Negative for abdominal pain, diarrhea, nausea and vomiting. Endocrine: Positive for cold intolerance. Musculoskeletal: Positive for back pain. Neurological: Positive for light-headedness. Visit Vitals BP (!) 99/41 Pulse 51 Temp 36.6 ???C (97.9 ???F) (Temporal) Resp 19 Intake/Output Summary (Last 24 hours) at 04/04/2024 0943 Last data filed at 04/03/2024 1600 Gross per 24 hour Intake 360 ml Output -- Net 360 ml Estimated body mass index is 16.51 kg/m??? as calculated from the following: Height as of this encounter: 1.676 m (5' 6 ). Weight as of this encounter: 46.4 kg (102 lb 4.7 oz). Active Inpatient Problems Principal Problem: Third degree heart block (CMS/HCC) Assessment and Plan Complete heart block with junctional escape rhythm -Pending pacemaker for today -Review ECHO results -Continue to monitor telemetry today 2. H/O Aortic stenosis 3. Hypothyroidism, TSH mildly elevated but NL free t4 -Continue on Levothyroxine 4. H/O Asthma -Continue albuterol as needed 5. Reported dementia 6. Remote H/O PAF 7. Elevated BNP but patient has no signs of overt CHF Wounds: Wound 04/01/24 Face Right;Upper (Active) Date First Assessed/Time First Assessed: 04/01/24 2330 Present on Original Admission: Yes Location: Face Wound Location Orientation: Right;Upper Assessments 04/01/2024 11:30 PM 04/04/2024 8:00 AM Site Assessment Red;Ballinger Ballinger VTE Prophylaxis: Lovenox Scheduled Meds ceFAZolin (Ancef) 1,000 mg, gentamicin (Garamycin) 80 mg in sodium chloride irrigation solution 0.9 % 500 mL IRRIGATION, , irrigation, Once ceFAZolin, 2 g, intravenous, Once enoxaparin, 40 mg, subcutaneous, Daily levothyroxine, 75 mcg, oral, Daily czbscv-dpoqdlje-bclnwrm, 1 capsule, oral, TID with meals olopatadine, 1 drop, Both Eyes, BID pantoprazole, 40 mg, oral, Daily Pertinent Investigations Hematology: Results from last 7 days Lab Units 04/01/24 1905 WBC AUTO 10*3/uL 4.03 HEMOGLOBIN g/dL 9.8* HEMATOCRIT % 31.3* MCV fL 98.7* PLATELETS AUTO 10*3/uL 177 INR 1.18* Chemistry: Results from last 7 days Lab Units 04/01/24 1905 SODIUM mmol/L 135* POTASSIUM mmol/L 4.3 CHLORIDE mmol/L 112* CO2 mmol/L 18* BUN mg/dL 19 CREATI (more content not included)... [facility] 04-04-2024 Note -- Attestation signed by Shawna Duffy MD at 04/04/2024 5:15 PM GC: I saw this patient. I personally performed the critical/hernandez portions that determines the level of service. I was directly involved in the management and treatment plan of the patient. I reviewed resident Dr. Pelaez's note and agree with the documentation -- Cardiology Progress Note REASON FOR CONSULT Reason for Consult: heart block, known pt SUBJECTIVE Interval History: Patient seen and examined at bedside. No overnight events. They have no complaints at this time and are doing well. Patient is afebrile and hemodynamically stable. Physical exam unchanged. HPI: Salome Dominguez is a 83 y.o. female with history of dementia, paroxysmal A-fib, hypothyroidism was referred from cardiology clinic due to complete heart block the patient went evaluation for lethargy generalized weakness she denies syncope or presyncope, her blood pressure was elevated, no hypotension, she has junctional escape rhythm ranging between 35 and 45, patient is admitted to the hospital for close observation we are considering permanent pacemaker placement on Thursday OBJECTIVE Objective: Visit Vitals BP 119/52 Pulse (!) 35 Temp 36.8 ???C (98.2 ???F) (Temporal) Resp 21 Physical Examination: GENERAL: AOx3, in no acute distress. HEAD: Atraumatic, normocephalic. EYES: BONG, EOMI. NECK: No JVD present. CARDIAC: RRR. No murmur, rubs, or gallops. RESPIRATORY: CTAB, no increased effort of breathing. ABDOMEN: Soft, nontender, nondistended. EXTREMITIES: No lower extremity edema, peripheral pulses are 2+ bilaterally. NEURO: No focal deficits Current Meds: Current Facility-Administered Medications: acetaminophen (Tylenol) tablet 650 mg, 650 mg, oral, q6h PRN, Camille Griffin MD albuterol 90 mcg/actuation inhaler 2 puff, 2 puff, inhalation, q4h PRN, Camille Griffin MD alum-mag hydroxide-simeth (Mylanta) 200-200-20 mg/5 mL oral suspension 20 mL, 20 mL, oral, TID PRN, Camille Griffin MD enoxaparin (Lovenox) syringe 40 mg, 40 mg, subcutaneous, Daily, Camille Griffin MD, 40 mg at 04/03/24 0818 fentaNYL (Sublimaze) injection, , , PRN, Issa Richards MD, 12.5 mcg at 04/04/24 1435 hydrOXYzine pamoate (Vistaril) capsule 25 mg, 25 mg, oral, BID PRN, Camille Griffin MD levothyroxine (Synthroid, Levoxyl) tablet 75 mcg, 75 mcg, oral, Daily, Camille Griffin MD, 75 mcg at 04/04/24 0508 lidocaine (PF) (Xylocaine) 10 mg/mL (1 %) injection, , , PRN, Issa Richards MD, 30 mL at 04/04/24 1328 jhsfma-sdvdfxfs-gjhqrub (Creon) 3,000-9,500- 15,000 unit per capsule 1 capsule, 1 capsule, oral, TID with meals, Mireya Tolentino MD, 1 capsule at 04/03/24 1644 melatonin tablet 5 mg, 5 mg, oral, Nightly PRN, Camille Griffin MD midazolam (Versed) injection, , , PRN, Issa Richards MD, 0.5 mg at 04/04/24 1435 olopatadine (Patanol) 0.1 % ophthalmic solution 1 drop, 1 drop, Both Eyes, BID, Ludivina Rios NP, 1 drop at 04/04/24 0952 pantoprazole (ProtoNix) EC tablet 40 mg, 40 mg, oral, Daily, Camille Griffin MD, 40 mg at 04/04/24 0508 sennosides-docusate sodium (Calli-Colace) 8.6-50 mg per tablet 1 tablet, 1 tablet, oral, Daily PRN, Camille Griffin MD sodium chloride 0.9 % infusion, , , Continuous PRN, Issa Richards MD, Last Rate: 50 mL/hr at 04/04/24 1312, 50 mL/hr at 04/04/24 1312 Relevant Lab Results: Lab Results Component Value Date TROPONINI 0.04 04/01/2024 No echocardiogram results found for the past 12 months No nuclear medicine results found for the past 12 months Relevant Imaging Results ASSESSMENT & PLAN Assessment: Complete heart block Remote history of paroxysmal A-fib not on anticoagulation due to recurrent falls Dementia Asthma Hypothyroidism Plan: Plan for pacemaker placement today Follow up Echo Continue Telemetry monitoring Monitor electrolytes, Keep Mag above 2 and Potassium above 4 Cardiology will follow along Mirian Pelaez MD PGY3 Internal Medicine [facility] 04-03-2024 Note Hospital Medicine Daily Progress Note - 04/03/2024 12:05 PM; Room: [address] [place] [address] Admission: 04/01/2024 5:28 PM; Length of stay: 2 days THE HOSPITALIST TEAM PREFERS TO USE [employer] CHAT FOR COMMUNICATION 7AM-7PM. IF I DO NOT RESPOND WITHIN 15 MINUTES, PLEASE PAGE ME/CALL THROUGH THE HELP DESK OPERATOR. FROM 7PM-7AM, PLEASE PAGE [phone](COVR) Code Status: Full Code Barriers to Discharge: CHB Expected Discharge Date: 1-2 days Discharge Destination: TBD Overview Patient is seen for evaluation and management of CHB Subjective Seen today in her room, HR in the 30's but in no acute distress. No dizziness or CP. Physical Exam GENERAL: alert and in no acute distress. HEAD: atraumatic, normocephalic. EYES: BONG, EOMI. NECK: trachea midline, no JVD present CARDIAC: S1, S2 present. RRR. RESPIRATORY: CTAB, no increased effort of breathing, no rales, rhonchi, or wheezing. ABDOMEN: soft, nontender, nondistended. EXTREMITIES: no lower extremity edema, peripheral pulses are 2+ bilaterally. No rash/skin discoloration present. NEURO: strength/sensation equal and symmetric in bilateral upper and lower extremities. PSYCH: appropriate mood, affect, and judgement. Visit Vitals BP (!) 104/40 Pulse (!) 34 Temp 36.9 ???C (98.4 ???F) (Temporal) Resp 17 Intake/Output Summary (Last 24 hours) at 04/03/2024 1205 Last data filed at 04/03/2024 0900 Gross per 24 hour Intake 600 ml Output 4 ml Net 596 ml Estimated body mass index is 15.91 kg/m??? as calculated from the following: Height as of this encounter: 1.676 m (5' 6 ). Weight as of this encounter: 44.7 kg (98 lb 8.7 oz). Active Inpatient Problems Principal Problem: Third degree heart block (CMS/HCC) Assessment and Plan Complete heart block with junctional escape rhythm Pending pacemaker placement for tomorrow Telemetry for now 2. H/O Aortic stenosis 3. Hypothyroidism, TSH mildly elevated but NL free t4 4. H/O Asthma 5. Reported dementia 6. Remote H/O PAF 7. Elevated BNP but patient has no signs of overt CHF Wounds: Wound 04/01/24 Face Right;Upper (Active) Date First Assessed/Time First Assessed: 04/01/24 2330 Present on Original Admission: Yes Location: Face Wound Location Orientation: Right;Upper Assessments 04/01/2024 11:30 PM 04/03/2024 8:00 AM Site Assessment Red;Ballinger Red;Ballinger VTE Prophylaxis: Lovenox Scheduled Meds enoxaparin, 40 mg, subcutaneous, Daily levothyroxine, 75 mcg, oral, Daily [id number], 1 capsule, oral, TID with meals pantoprazole, 40 mg, oral, Daily Pertinent Investigations Hematology: Results from last 7 days Lab Units 04/01/24 1905 WBC AUTO 10*3/uL 4.03 HEMOGLOBIN g/dL 9.8* HEMATOCRIT % 31.3* MCV fL 98.7* PLATELETS AUTO 10*3/uL 177 INR 1.18* Chemistry: Results from last 7 days Lab Units 04/01/24 1905 SODIUM mmol/L 135* POTASSIUM mmol/L 4.3 CHLORIDE mmol/L 112* CO2 mmol/L 18* BUN mg/dL 19 CREATININE mg/dL 0.83 GLUCOSE mg/dL 91 CALCIUM mg/dL 8.0* No lab exists for component: AFIO2 , APHT , APCOT , APOT , ATCO2 , CK , ALB , IBILI Historical Values: (Includes values prior to this admission) Lab Results Component Value Date TSH 6.13 (H) 04/01/2024 FREET4 0.77 04/01/2024 No results found for: MRGRMRHE21 , IRON , TIBC , C3 , C4 , TOMAS , CANCA , ASO , PSA , CEA , CA125 , CA199 , AFP , CA153 Imaging ECG 12 lead (Now) Sinus rhythm with complete heart block and Idioventricular rhythm Right bundle branch block Left anterior fascicular block Bifascicular block Anterior infarct , age undetermined Abnormal ECG No previous ECGs available XR chest 1 view Narrative: XR CHEST 1 VIEW 04/01/2024 6:03 PM CLINICAL INDICATIONS: Chest pain COMPARISON: None FINDINGS: Cardiomediastinal silhouette is within normal limits. No pneumothorax or pleural effusion. No focal airspace disease. Hyperinflated lungs with increased interstitial markings. Deformity of the right humeral neck, likely remote trauma. Impression: Emphysematous changes without acute process. Approved by:Home Galloway04/01/2024 6:58 PM. I, Eleazar Olmedo,have reviewed the image(s) and agree with the findings in this report. Electronically signed: Eleazar Olmedo. Discharge Planning Signed Mireya Tolentino MD [facility] Medicine 04/03/2024 12:05 PM [facility] 04-03-2024 Note -- Attestation signed by Shawna Duffy MD at 04/04/2024 9:25 AM GC: I saw this patient. I personally performed the critical/hernandez portions that determines the level of service. I was directly involved in the management and treatment plan of the patient. I reviewed fellow Dr. Valdez's note and agree with the documentation -- Cardiology Progress Note Subjective Subjective: Salome Dominguez is a 83 y.o. female was admitted to the hospital due to complete heart block, with episodes of dizziness, patient remains in complete AV block heart rate ranging between 35 and 45 no acute events overnight no new complaints she feels well Objective Objective: Patient Vitals for the past 24 hrs: BP Temp Temp src Pulse Resp SpO2 Weight 04/03/24 0800 (!) 104/40 -- -- (!) 34 17 96 % -- 04/03/24 0414 -- -- -- -- -- -- 44.7 kg (98 lb 8.7 oz) 04/02/24 1955 -- -- -- -- -- 97 % -- 04/02/24 1950 153/54 36.9 ???C (98.4 ???F) Temporal (!) 36 26 -- -- 04/02/24 1800 127/54 -- -- (!) 34 21 96 % -- 04/02/24 1700 142/59 -- -- (!) 34 19 (!) 88 % -- 04/02/24 1600 (!) 140/38 -- -- (!) 34 18 100 % -- 04/02/24 1500 (!) 125/36 -- -- (!) 44 20 100 % -- 04/02/24 1400 (!) 140/39 -- -- (!) 36 14 100 % -- 04/02/24 1300 (!) 133/42 -- -- (!) 33 19 100 % -- 04/02/24 1215 132/71 -- -- (!) 34 18 91 % -- 04/02/24 1100 (!) 126/38 -- -- (!) 37 21 97 % -- Physical Examination: GENERAL: AOx3, in no acute distress. HEAD: Atraumatic, normocephalic. EYES: BONG, EOMI. NECK: No JVD present. CARDIAC: RRR. No murmur, rubs, or gallops. RESPIRATORY: CTAB, no increased effort of breathing. ABDOMEN: Soft, nontender, nondistended. EXTREMITIES: No lower extremity edema, peripheral pulses are 2+ bilaterally. NEURO: No focal deficits Relevant Lab Results Encounter Date: 04/01/24 ECG 12 lead (Now) Result Value Ventricular Rate 36 Atrial Rate 96 QRS DURATION 142 QT Interval 532 QTC CALCULATION(BAZETT) 411 P [place] 82 R-[place] -60 T Wave [place] 71 Impression Sinus rhythm with complete heart block and Idioventricular rhythm Right bundle branch block Left anterior fascicular block Bifascicular block Anterior infarct , age undetermined Abnormal ECG No previous ECGs available Confirmed by Radha DUFFY SAMER J. ([id number]) on 04/02/2024 12:19:54 PM Lab Results Component Value Date TROPONINI 0.04 04/01/2024 No echocardiogram results found for the past 12 months No nuclear medicine results found for the past 12 months Relevant Imaging Results ECG 12 lead (Now) Sinus rhythm with complete heart block and Idioventricular rhythm Right bundle branch block Left anterior fascicular block Bifascicular block Anterior infarct , age undetermined Abnormal ECG No previous ECGs available Confirmed by Radha DUFFY SAMER J. ([id number]) on 04/02/2024 12:19:54 PM Assessment: Complete heart block Remote history of paroxysmal A-fib not on anticoagulation due to recurrent falls Dementia Asthma Hypothyroidism Plan: Check echocardiogram Pacemaker placement on Thursday Correct hypothyroidism, Cardiology will follow along Orlando Valdez MD Flocculator Operator PGY-4 [facility] 04-02-2024 Note Hospital Medicine Daily Progress Note - 04/02/2024 11:29 AM; Room: [facility]/3133- Admission: 04/01/2024 5:28 PM; Length of stay: 1 days THE HOSPITALIST TEAM PREFERS TO USE [employer] FOR COMMUNICATION 7AM-7PM. IF I DO NOT RESPOND WITHIN 15 MINUTES, PLEASE PAGE ME/CALL THROUGH THE HELP DESK OPERATOR. FROM 7PM-7AM, PLEASE PAGE [phone](COVR) Code Status: Full Code Barriers to Discharge: CHB Expected Discharge Date: 1-2 days Discharge Destination: TBD Overview Patient is seen for evaluation and management of CHB Subjective Seen today in her room, HR in the 30's but in no acute distress. No dizziness or CP. Physical Exam GENERAL: alert and in no acute distress. HEAD: atraumatic, normocephalic. EYES: BONG, EOMI. NECK: trachea midline, no JVD present CARDIAC: S1, S2 present. RRR. RESPIRATORY: CTAB, no increased effort of breathing, no rales, rhonchi, or wheezing. ABDOMEN: soft, nontender, nondistended. EXTREMITIES: no lower extremity edema, peripheral pulses are 2+ bilaterally. No rash/skin discoloration present. NEURO: strength/sensation equal and symmetric in bilateral upper and lower extremities. PSYCH: appropriate mood, affect, and judgement. Visit Vitals BP (!) 110/41 Pulse (!) 33 Temp 36.1 ???C (97 ???F) (Temporal) Resp 16 Intake/Output Summary (Last 24 hours) at 04/02/2024 1129 Last data filed at 04/01/2024 2315 Gross per 24 hour Intake 100 ml Output -- Net 100 ml Estimated body mass index is 16.2 kg/m??? as calculated from the following: Height as of this encounter: 1.676 m (5' 6 ). Weight as of this encounter: 45.5 kg (100 lb 6.4 oz). Active Inpatient Problems Principal Problem: Third degree heart block (CMS/HCC) Assessment and Plan Complete heart block with junctional escape rhythm Pending pacemaker placement Telemetry for now 2. H/O Aortic stenosis 3. Hypothyroidism, TSH mildly elevated but NL free t4 4. H/O Asthma 5. Reported dementia 6. Remote H/O PAF 7. Elevated BNP but patient has no signs of overt CHF Wounds: Wound 04/01/24 Face Right;Upper (Active) Date First Assessed/Time First Assessed: 04/01/24 2330 Present on Original Admission: Yes Location: Face Wound Location Orientation: Right;Upper Assessments 04/01/2024 11:30 PM 04/02/2024 9:00 AM Site Assessment Red;Ballinger Red;Ballinger VTE Prophylaxis: Lovenox Scheduled Meds [START ON 04/03/2024] enoxaparin, 40 mg, subcutaneous, Daily levothyroxine, 75 mcg, oral, Daily pantoprazole, 40 mg, oral, Daily Pertinent Investigations Hematology: Results from last 7 days Lab Units 04/01/24 1905 WBC AUTO 10*3/uL 4.03 HEMOGLOBIN g/dL 9.8* HEMATOCRIT % 31.3* MCV fL 98.7* PLATELETS AUTO 10*3/uL 177 INR 1.18* Chemistry: Results from last 7 days Lab Units 04/01/24 1905 SODIUM mmol/L 135* POTASSIUM mmol/L 4.3 CHLORIDE mmol/L 112* CO2 mmol/L 18* BUN mg/dL 19 CREATININE mg/dL 0.83 GLUCOSE mg/dL 91 CALCIUM mg/dL 8.0* No lab exists for component: AFIO2 , APHT , APCOT , APOT , ATCO2 , CK , ALB , IBILI Historical Values: (Includes values prior to this admission) Lab Results Component Value Date TSH 6.13 (H) 04/01/2024 FREET4 0.77 04/01/2024 No results found for: [id number] , IRON , TIBC , C3 , C4 , TOMAS , CANCA , ASO , PSA , CEA , CA125 , CA199 , AFP , CA153 Imaging ECG 12 lead (Now) Sinus rhythm with complete heart block and Idioventricular rhythm Right bundle branch block Left anterior fascicular block Bifascicular block Anterior infarct , age undetermined Abnormal ECG No previous ECGs available XR chest 1 view Narrative: XR CHEST 1 VIEW 04/01/2024 6:03 PM CLINICAL INDICATIONS: Chest pain COMPARISON: None FINDINGS: Cardiomediastinal silhouette is within normal limits. No pneumothorax or pleural effusion. No focal airspace disease. Hyperinflated lungs with increased interstitial markings. Deformity of the right humeral neck, likely remote trauma. Impression: Emphysematous changes without acute process. Approved by:Home Galloway04/01/2024 6:58 PM. I, Eleazar Olmedo,have reviewed the image(s) and agree with the findings in this report. Electronically signed: Eleazar Olmedo. Discharge Planning Signed Mireya Tolentino MD Hospital Medicine 04/02/2024 11:29 AM [facility] 04-01-2024 Note Hospital Medicine History and Physical 04/01/2024 11:08 PM THE HOSPITALIST TEAM PREFERS TO USE [employer] FOR COMMUNICATION 7AM-7PM. IF I DO NOT RESPOND WITHIN 15 MINUTES, PLEASE PAGE ME/CALL THROUGH THE HELP DESK OPERATOR. FROM 7PM-7AM, PLEASE PAGE [phone](COVR) Chief Complaint Chief Complaint Patient presents with Bradycardia Pt sent by [place] [facility] for bradycardia. Pt c/o occasional SOB but denies being symptomatic otherwise. History of Present Illness Salome Dominguez is an 83 y.o. female who came from home with past medical history of hypothyroidism, anemia, COPD, aortic valve stenosis, asthma and dementia presented to ER per recommendation of her stoner out that the patient saw today because of bradycardia. Patient's daughter reports that patient had bradycardia for years but now it got worse. Her heart rate was in 50s and 60s but now it is down to 30's. Patient's only symptoms are occasional shortness of breath and she gets tired easily that is why she does not do a lot at home. She denies shortness of breath at the moment and no chest pain. No lightheadedness or dizziness. No abdominal pain. No nausea or vomiting. Per cardiology recommendations, patient needs admission for pacemaker placement and to have echo done to assess significant heart murmur. Patient has history of hypothyroidism and is on levothyroxine. She sometimes misses doses and her TSH is slightly elevated at 6. Unlikely that it's the cause of her significant bradycardia. Review of System and Physical Exam Temp: [36.4 ???C (97.6 ???F)-36.6 ???C (97.9 ???F)] 36.6 ???C (97.9 ???F) Heart Rate: [33-39] 34 Resp: [12-23] 21 BP: (103-153)/(42-68) 125/48 Physical Exam Constitutional: General: She is not in acute distress. Appearance: Normal appearance. HENT: Head: Normocephalic and atraumatic. Eyes: Conjunctiva/sclera: Conjunctivae normal. Cardiovascular: Rate and Rhythm: Regular rhythm. Bradycardia present. Heart sounds: Murmur (4/6, systolic) heard. No friction rub. No gallop. Pulmonary: Effort: Pulmonary effort is normal. No respiratory distress. Breath sounds: No wheezing, rhonchi or rales. Comments: Diminished breath sounds bilaterally. Abdominal: General: Abdomen is flat. There is no distension. Tenderness: There is no abdominal tenderness. Musculoskeletal: General: No swelling or deformity. Right lower leg: No edema. Left lower leg: No edema. Skin: General: Skin is warm and dry. Findings: No rash. Neurological: General: No focal deficit present. Mental Status: She is alert. Psychiatric: Mood and Affect: Mood normal. Behavior: Behavior normal. Thought Content: Thought content normal. Judgment: Judgment normal. Review of Systems as mentioned in HPI Problem List Patient Active Problem List Diagnosis Date Noted Bradycardia 04/01/2024 Complete heart block ([facility]/HCC) 04/01/2024 Murmur, heart 04/01/2024 SERRANO (dyspnea on exertion) 04/01/2024 Third degree heart block (CMS/HCC) 04/01/2024 Dementia ([facility]/HCC) 03/15/2024 Hypothyroidism 03/15/2024 Long-term use of high-risk medication 03/15/2024 Lesion of skin of scalp 07/01/2023 Sensorineural hearing loss, bilateral 07/01/2023 Acute combined systolic and diastolic heart failure ([facility]/HCC) 06/30/2023 Chronic fatigue, unspecified 06/30/2023 Diabetes mellitus ([facility]/HCC) 06/30/2023 Essential (primary) hypertension 06/30/2023 Age related osteoporosis 06/08/2023 Anxiety disorder, unspecified 06/08/2023 Asymptomatic varicose veins 06/08/2023 Ataxic gait 06/08/2023 Biliary cirrhosis (CMS/HCC) 06/08/2023 Bladder atonia 06/08/2023 Cardiomegaly 06/08/2023 Chronic insomnia 06/08/2023 Coronary atherosclerosis 06/08/2023 Decreased estrogen level 06/08/2023 Diastolic dysfunction 06/08/2023 Disease of tricuspid valve 06/08/2023 Mitral valve disorder 06/08/2023 Frequent falls 06/08/2023 Gastro-esophageal reflux disease without esophagitis 06/08/2023 Hiatal hernia 06/08/2023 Hypokalemia 06/08/2023 Incontinence of feces 06/08/2023 Inguinal hernia, bilateral 06/08/2023 H/O gastric bypass 06/08/2023 Intestinal malabsorption, unspecified 06/08/2023 Migraine, unspecified, not intractable, without status migrainosus 06/08/2023 Moderate episode of recurrent major depressive disorder (CMS/HCC) 06/08/2023 Moderate persistent asthma without complication 06/08/2023 Myositis 06/08/2023 Nonrheumatic aortic valve stenosis 06/08/2023 Osteoarthritis of lumbar spine 06/08/2023 Other congenital valgus deformity of feet 06/08/2023 Other seborrheic keratosis 06/08/2023 Paroxysmal atrial fibrillation (CMS/HCC) 06/08/2023 Pure hypercholesterolemia 06/08/2023 Restless legs syndrome 06/08/2023 Transient cerebral ischemia 06/08/2023 Chronic obstructive pulmonary disease with (acute) exacerbation (CMS/HCC) 03/12/2023 Osteoarthrosis, hand 10/15/2009 Bacterial overgrowth syndrome 05/17/2009 Abdominal pain, lef (more content not included)... [facility] 04-01-2024 Note 04/01/242033 Financial Resource Strain How hard is it for you to pay for the very basics like food, housing, medical care, and heating? Not hard Housing Stability In the last 12 months, was there a time when you were not able to pay the mortgage or rent on time? N In the last 12 months, how many places have you lived? 1 (Lives at [facility] w/ ) In the last 12 months, was there a time when you did not have a steady place to sleep or slept in a retirement (including now)? N Transportation Needs In the past 12 months, has lack of transportation kept you from medical appointments or from getting medications? no In the past 12 months, has lack of transportation kept you from meetings, work, or from getting things needed for daily living? No Food Insecurity Within the past 12 months, you worried that your food would run out before you got the money to buy more. Never true Within the past 12 months, the food you bought just didn't last and you didn't have money to get more. Never true Stress Do you feel stress - tense, restless, nervous, or anxious, or unable to sleep at night because your mind is troubled all the time - these days? Only a littl Social Connections In a typical week, how many times do you talk on the phone with family, friends, or neighbors? More than 3 How often do you get together with friends or relatives? More than 3 How often do you attend sabianist or sikh services? Never Do you belong to any clubs or organizations such as sabianist groups, unions, fraternal or athletic groups, or school groups? No How often do you attend meetings of the clubs or organizations you belong to? Never Are you , , , , never , or living with a partner? Intimate Partner Violence Within the last year, have you been afraid of your partner or ex-partner? No Within the last year, have you been humiliated or emotionally abused in other ways by your partner or ex-partner? No Within the last year, have you been kicked, hit, slapped, or otherwise physically hurt by your partner or ex-partner? No Within the last year, have you been raped or forced to have any kind of sexual activity by your partner or ex-partner? No Alcohol Use Q1: How often do you have a drink containing alcohol? Never Q2: How many drinks containing alcohol do you have on a typical day when you are drinking? None Q3: How often do you have six or more drinks on one occasion? Never Utilities In the past 12 months has the [employer], oil, or water [employer] threatened to shut off services in your home? No 04/01/242034 Referral Data Referral Source fur floor worker Referral Reason Psychosocial assessment Patient Information Primary Caregiver Private caregiver Accompanied by/Relationship Daughter Alexia, Kevin Activities of Daily Living Assistive Device Walker (uses sometimes) Living Arrangement (Current/Prior to Hospitalization) Private residence ([facility] independent living w/ ) Ambulation Minimum assistance (uses walker sometimes) Dressing Independent Feeding Independent Behavior Oriented (A&Ox4) Communication Can write;Talks;Understands speaking;Understands Japanese;Reads Income Information Income Source Unemployed (Retired) Discharge Planning Support Systems Spouse/significant other;Children ( Kevin; six daughters (Alexia, Kait, Donita, Jasmin, Doris, Savana); son Karol) Type of Residence Private residence;Home care staff Will patient need Precert for Post Acute needs? No Patient's goal for discharge Return to [facility] with continued EMBEDDED SOFTWARE MANAGER Does the patient need discharge transport arranged? No Completed social work assessment and SDoH screening. Patient was A&Ox4 at this time. Patient's , Kevin, and daughter, Alexia, were currently present at bedside. Patient reported that she lives at [facility] with her . Patient identified her support system as her (Kevin), her six daughters (Alexia, Kait, Donita, Jasmin, Doris, and Savana), and her son (Karol). Patient endorsed that she is moderately socially active. Patient reported that she needs assistance with bathing, which is provided by one of her daughters or by her EMBEDDED SOFTWARE MANAGER who visits 2x/week. Patient reported that she is retired from employment and she denied the need for assistance with obtaining basic needs. Patient also denied the need for assistance with transportation for medical appointments and she denied the need for assistance with transportation home from the hospital upon discharge. Patient denied experiencing any significant amount of stress in her everyday life, denied experiencing any form of IPV within the past year, and denied any alcohol consumption or recreational drug use. [facility] 04-01-2024 Note [facility] Note Reason for cardiology consult: New patient here to establish care. Ref from Juana Mcdaniels CNP with neurology for bradycardia. Chief Complaint: Weakness HPI: Salome Dmoinguez is a 83 y.o. female with a remote history of paroxysmal atrial fibrillation during stress test, she has a history of asthma all of her life, dementia, unstable gait, and recently diagnosed hypothyroidism The patient lives with her who also has dementia. She is here today with her daughter. Recently she went to the hospital because of worsening of shortness of breath and it was felt to be due to asthma exacerbation and she did do well with steroids and antibiotics. During that visit it was noted that her heart rate was slow 44 bpm. Her EKG showed sinus rhythm with first-degree AV block, left anterior fascicular block and right bundle branch block therefore she was referred to cardiology. The daughter states that the patient does not take Synthroid regularly because she forgets about it. She also does not drink a lot of water. Patient is very sedentary and for a long time had unsteady gait and falling. She ambulates using the walker. No recent history of falls. Patient denies any dizziness. No syncope or near syncope. However she complains of being tired and cold all the time. The daughter reports that the patient does not drink enough water. She continues to eat well. There is no reported chest pain. She is currently at her baseline regarding breathing. She has some shortness of breath with activity which not changed from baseline, she is not on maintenance inhaler, she uses albuterol on as needed basis. No orthopnea or paroxysmal nocturnal dyspnea or legs edema. No reported palpitation The patient never been a smoker. But she is exposed to other members of the family who used to smoke. No history of alcohol or illicit drugs. Cardiology ROS: Review of Systems Cardiovascular: Positive for dyspnea on exertion. Musculoskeletal: Positive for falls and muscle weakness. Neurological: Positive for weakness. All other systems reviewed and are negative. Past Medical History She has a past medical history of Abnormal ECG, Alzheimer disease (CMS/HCC), Asthma, Atrial fibrillation (CMS/HCC), Bradycardia, COPD (chronic obstructive pulmonary disease) (CMS/HCC), Dementia (CMS/HCC), Hypothyroidism, and RLS (restless legs syndrome). Surgical History She has a past surgical history that includes Cholecystectomy; Appendectomy; Ankle surgery; Gastric bypass; Cataract extraction; Back surgery; Foot surgery; Hip surgery; Hysterectomy; Mouth surgery; Toe Surgery; and Tonsillectomy. Social History She reports that she has never smoked. She has been exposed to tobacco smoke. She has never used smokeless tobacco. She reports that she does not drink alcohol and does not use drugs. Family History Family History Problem Relation Name Age of Onset Stroke Mother Other (carotid artery stenosis) Mother No Known Problems Father Allergies Psyllium Medications Current Outpatient Medications: albuterol 90 mcg/actuation inhaler, INHALE 2 PUFFS EVERY 6 HOURS NEEDED FOR SHORTNESS OF BREATH OR WHEEZING, Disp: , Rfl: Creon 3,000-9,500- 15,000 unit capsule, Take 1 capsule by mouth., Disp: , Rfl: levothyroxine (Synthroid, Levoxyl) 75 mcg tablet, Take 75 mcg by mouth in the morning., Disp: , Rfl: Vitamin B-12 1,000 mcg tablet, 1,000 mcg 1 (one) time each day., Disp: , Rfl: Last Recorded Vitals Visit Vitals BP 122/68 (BP Location: Left arm, Patient Position: Sitting) Pulse (!) 39 Ht 1.702 m (5' 7 ) Wt 45.4 kg (100 lb) SpO2 (!) 83% BMI 15.66 kg/m??? Smoking Status Never BSA 1.47 m??? Physical Examination: GENERAL: alert and oriented x3, well developed, in no acute distress. HEAD: atraumatic, normocephalic. EYES: BONG, EOMI. NECK: trachea midline, no JVD present, no carotid bruits present. CARDIAC: S1, S2 present. RRR. No murmur, rubs, or gallops. RESPIRATORY: CTAB, no increased effort of breathing, no rales, rhonchi, or wheezing. ABDOMEN: soft, nontender, nondistended. EXTREMITIES: no lower extremity edema, peripheral pulses are 2+ bilaterally. No rash/skin discoloration present. NEURO: strength/sensation equal and symmetric in bilateral upper and lower extremities. PSYCH: appropriate mood, affect, and judgement. Labs: 12/23/2023 at [facility] TSH 9.379., White blood count 4.6, hemoglobin 10.3, hematocrit 32.3, platelets 240, GFR above 60 Sodium 142, potassium 3.1, BUN 26, creatinine 1.8, glucose 97, AST 18, ALT 16, alk phos 87, albumin 2.8 BNP 5432 Last Images: EKG performed today 04/01/2024 showed sinus rhythm with complete heart block and junctional escape rhythm, ventricular rate 37 bpm, left anterior fascicular block, and right bundle branch block EKG 02/11/2024 showed sinus bradycardia 49 bpm with first-degree AV block, left a (more content not included)... [facility] 10-16-2023 Evaluation note Encounter Date Diagnosis Assessment Notes Sep, Hypokalemia (ICD-10 - E87.6) [email or web address] Other 01-18-2024 Evaluation note* Encounter Date Diagnosis Assessment Notes Treatment Notes Treatment Clinical Notes Sep, Other symptoms and signs involving appearance and behavior (ICD-10 - R46.89) [email or web address] Other 01-15-2024 Evaluation note* Encounter Date Diagnosis Assessment Notes Treatment Notes Treatment Clinical Notes Sep, Other symptoms and signs involving [...] Pt reinforced to take med as prescribed. [email or web address] Other 11-08-2023 Evaluation note* Encounter Date Diagnosis Assessment Notes Treatment Notes Treatment Clinical Notes Jul, Restless leg syndrome (ICD-10 - G25.81) [email or web address] Other 08-17-2023 Evaluation note* Encounter Date Diagnosis Assessment Notes Treatment Notes Treatment Clinical Notes Apr, Chronic diarrhea (ICD-10 - K52.9) [email or web address] Other 06-30-2023 Evaluation note* Encounter Date Diagnosis Assessment Notes Treatment Notes Treatment Clinical Notes Feb, Moderate persistent asthma without complication (ICD-10 - J45.40) [email or web address] Other Evaluation noteNo InformationNort Osmosis Other History general Narrative - Reported* Type Description Date Medical History Atrial fibrillation Medical History asthma Medical History arthritia Medical History insomnia Surgical History cholecystectomy Surgical History hysterectomy Surgical History appendectomy Surgical History bowel surgery Surgical History surgery on L fourth toe 08/2016 Hospitalization History pneumonia [email or web address] Other History general Narrative - Reported* Type Description Date Medical History Atrial fibrillation Medical History asthma Medical History arthritia Medical History insomnia Medical History Bladder stimulator Surgical History cholecystectomy Surgical History hysterectomy Surgical History appendectomy Surgical History bowel surgery Surgical History surgery on L fourth toe 08/2016 Hospitalization History pneumonia [email or web address] Other Summary Purpose Family History No Family [...] Directives Records Found Reason for Referral Reason [place] office - Do cuments scanned from family. CT brain pending. Behavioral and safety concerns. Notes from family scanned into chart Diagnosis 1 Other symptoms and s igns involving cognitive functions and awareness (R41.89) Referral Organization [facility] Medical sophie Referring Provider First Name Effie Referring Provider Last Name Augustina Referring Provider Specialty Family [facility] Referred Organization [facility] Referred Address [address] [place], [place],[address] Referred Provider Specialty Neurology Referral Priority Routine Additional Source Comments INFORMATION SOURCE (unrecogn ized section and content) DATE CREATED AUTHOR 03/19/2018 [facility] DATE CREATED AUTHOR AUTHOR'S ORGANIZ ATION 03/24/2018 [facility] DATE CREATED AUTHOR AUTHOR'S ORGANIZ ATION 04/22/2018 [facility] DATE CREATED AUTHOR AUTHOR'S ORGANIZ ATION 01/16/2019 [facility] DATE CREATED AUTHOR AUTHOR'S ORGANIZ ATION 01/03/2023 [facility] DATE CREATED AUTHOR AUTHOR'S ORGANIZ ATION 04/01/2024 [facility] EP[facility] DATE CREATED AUTHOR AUTHOR'S ORGANIZ ATION 04/12/2024 [facility] REASON FOR VISIT (unrecogniz ed section and content) messagescriptRefillrefillChe ck Up-Sleeping All DayCheck Up-Sleeping All DayNo InformationCT ScanCTCT FOR RECORDS PERTAINING TO PATIENTS WHO ARE [...] BE BASED ON THE PRIMARY CLINICAL RECORDS. [employer] provides no warranty or guarantee of the accuracy or completeness of information in this document.
--- NOTE | 2024-05-10 20:05 | ED_ITS ---
HPI - SOB/Dyspnea General Chief Complaint: Shortness of Breath/Dyspnea Stated Complaint: SOB Time Seen by Provider: 05/10/24 19:56 Source: patient Mode of arrival: Wheelchair History of Present Illness HPI Narrative: This 83-year-old female with a history of COPD who does not smoke presents for evaluation of 4 days of shortness of breath. She denies any chest pain. She has not really been coughing. She denies any abdominal pain or back pain. She has no lower extremity pain or swelling. She has used her inhalers and a breathing treatment today without clinical improvement. She denies any fever. She has not had any nausea vomiting or diarrhea. The patient was noted to be covered with dried stool encompassing her brief and has 2 stage I decubitus ulcers in the sacral area. She also appears to have had a excision in the sacral area in the past because it is markedly scarred. She has a skin tear on her right knee area and a bleeding sore on the right side of her scalp. The patient's arrived shortly after she was evaluated. He seems to have some degree of confusion and is asking her over and over what happened to her right knee where she has a skin tear. I asked if he felt they needed some help at home and he states no they are fine. The patient states that they do have help a couple days a week. Related Data Home Medications ?Medication ?Instructions ?Recorded ?Confirmed albuterol sulfate 90 mcg/actuation 2 puff inhalation DAILY 02/11/24 02/11/24 aerosol inhaler cyanocobalamin (vitamin B-12) 1,000 mcg PO .monthly 02/11/24 02/11/24 1,000 mcg tablet (Vitamin B-12) levothyroxine 75 mcg tablet 75 mcg PO DAILY 02/11/24 02/11/24 tshtxz-eggnakai-mzhtlgq 1 cap PO TID 02/11/24 02/11/24 3,000-9,500-15,000 unit capsule, delayed rel (Creon) Previous Rx's ?Medication ?Instructions ?Recorded azithromycin 250 mg tablet See Rx Instructions PO .COMPLEX #6 02/11/24 (Zithromax Z-Mohinder) tabs methylprednisolone 4 mg tablets in See Rx Instructions .Route 02/11/24 a dose pack (Medrol (Mohinder)) .COMPLEX #21 ea Allergies Allergy/AdvReac Type Severity Reaction Status Date / Time psyllium [From Metamucil] Allergy Severe Hives Verified 09/22/23 16:18 Review of Systems ROS Status of ROS 10 or more systems reviewed and unremark able except as noted in history and below [facility] Medical History (Updated 05/11/24 @ 00:41 by Sammie Roberts MD) Pacemaker ?Z95.0 - Presence of cardiac pacemaker (ICD-10) Asthma ?J45.909 - Unspecified asthma, uncomplicated (ICD-10) Social History Within the past year, how often did you have a drink containing alcohol: monthly or less Within the past year, how many standard drinks containing alcohol did you have on a typical day: 1 or 2 Within the past year, how often did you have six or more drinks on one occasion: never Total score: 0 Score interpretation: A score less than 3 is consistent with normal alcohol consumption. Smoking status: Never smoker Non-prescribed substance use: denies use Previous occupational history: retired Highest level of school completed/degree received: Associate degree: occup ational, technical, vocational program Are you now , , , , never or living with a partner: Little interest or pleasure in doing things: not at all Feeling down, depressed, or hopeless: not at all Feel stressed/tense/nervous/anxious/difficulty sleeping: not at all Do you think of yourself as: straight/heterosexual Gender Identity: female Exam Narrative Exam Narrative: Vital signs and Nursing Notes reviewed: Patient has a normal pulse, normal blood pressure she is not hypoxic with pulse ox of 96% on room air General: Awake, alert, oriented, conversant, cachectic elderly female, she is speaking in complete sentences without conversational dyspnea HEENT: Normocephalic atraumatic, mucous membranes are moist and pink, eyes are clear, normal conjunctiva, vision is grossly intact Neck: Supple, no JVD Chest: Lungs are clear to auscultation with good air entry, there is no wheezing rhonchi or rales appreciated no accessory muscle use, patient is speaking in complete sentences-no chest wall tenderness to palpation CVS: Regular rate and rhythm S1-S2, no murmurs rubs or gallops, pulses are brisk and equal bilaterally ABD: Soft, nondistended, nontender, no rebound guarding or rigidity, bowel sounds are normal, no pulsatile masses appreciated Extremities: Moving all extremities, no lower extremity tenderness or swelling noted, negative Homans' sign, pulses are brisk and equal bilaterally Skin: Normal in appearance without rash,pallor, petechiae or purpura Neuro: No focal deficits Constitutional Vital Signs, click to edit/add: Last Vital Signs Temp 98.1 F 05/10/24 22:49 Pulse 98 H 05/10/24 23:30 Resp 18 05/10/24 23:30 BP 96/59 05/10/24 23:30 Pulse Ox 98 05/10/24 22:30 O2 Del Method Room Air 05/10/24 20:17 Course Vital Signs Vital signs: Vital Signs Pulse Rate 100 H 05/10/24 19:50 Respiratory Rate 16 05/10/24 19:50 Blood Pressure 124/75 05/10/24 19:50 Pulse Oximetry 96 05/10/24 19:50 Oxygen Delivery Method Room Air 05/10/24 19:50 Temperature 98.1 F 05/10/24 22:49 Pulse Rate 98 H 05/10/24 23:30 Respiratory Rate 18 05/10/24 23:30 Blood Pressure 96/59 05/10/24 23:30 Pulse Oximetry 98 05/10/24 22:30 Oxygen Delivery Method Room Air 05/10/24 20:17 MDM - SOB/Dyspnea MDM Narrative Medical decision making narrative: This 83-year-old female with a history of COPD who does not smoke is brought to the emergency department by her who has a certain degree of dementia. The patient states she has been having increasing shortness of breath for the past 4 days despite using her inhalers and nebulizer machine. She denies any chest pain. She has not had a fever. She denies any specific coughing. She has had some soft stools recently and has some stage I decubitus ulcers on her sacral area where it appears that she has had surgery in the past. The patient lives at home with her . He does not think they need any help however upon arrival the patient was noted to be covered with dried stool in her brief. She was cleaned up and urine was obtained. Urine is positive for nitrites and w georges blood cells. EKG done upon arrival is a paced rhythm with no acute changes. She has a normal white count and hemoglobin. Electrolytes and lactic acid are normal. Troponin is normal. D-dimer was elevated and CT scan of the chest abdomen pelvis was ordered. CT scan of the chest shows COPD findings but no other acute findings. Abdomen pelvis CT scan was discussed with the radiologist who states that she may have ileus or focal enteritis but she cannot rule out a focally dilated area with a closed-loop obstruction or mesenteric twisting related to a hernia. The patient's abdominal exam is completely benign. It is soft and nontender. She has no complaints of abdominal pain. She has a normal lactic acid and normal CBC with differential. My guess is she has may be some degree of focal enteritis but there is no sign of bowel ischemia or other clinical symptoms that indicate she may have a twisted bowel. She was medicated with a DuoNeb treatment, IV fluids, Solu-Medrol for the COPD and IV Rocephin for the urinary tract infection. The patient will be admitted to the hospitalist service for observation after I spoke to the nighttime hospitalist service for COPD with shortness of breath, UTI and failure to thrive. I asked the patient's if he felt that they needed help at home and he stated that they do not need any help at home. The patient however states they do have help 2 days a week. She did not divulge who helps them at home or in what capacity. Medical Records Attestation: I reviewed the patient's medical records. Lab Data Labs: Lab Results 05/10/24 05/10/24 Range/Units 20:02 20:50 WBC 6.3 (4.0-11.0) 10^3/uL RBC 3.77 L (4.20-5.40) 10^6/uL Hgb 11.7 L (12.0-16.0) g/dL Hct 36.6 (36.0-48.0) % MCV 97.1 (81.0-99.0) fL MCH 31.0 (26.7-34.0) pg MCHC 32.0 (29.9-35.2) g/dL RDW 15.9 H (11.0-15.0) % Plt Count 260 (150-450) 10^3/uL MPV 9.9 (9.5-13.5) fL Neut % (Auto) 36.2 L (43.0-75.0) % Lymph % (Auto) 31.2 (20.5-60.0) % Gates % (Auto) 9.3 (1.7-12.0) % Eos % (Auto) 22.1 H (0.9-7.0) % Baso % (Auto) 0.9 (0.2-2.0) % Neut # (Auto) 2.3 (1.4-6.5) 10^3/uL Lymph # (Auto) 2.0 (1.2-3.8) 10^3/uL Gates # (Auto) 0.6 (0.3-0.8) 10^3/uL Eos # (Auto) 1.4 H (0.0-0.7) 10^3/uL Baso # (Auto) 0.1 (0.0-0.1) 10^3/uL Abs Immat Gran (auto) 0.02 (0.00-0.03) 10^3/uL Imm/Tot Granulo (auto) 0.3 (0.0-0.5) % D-Dimer 4.15 H* (<=0.59) mg/L FEU Sodium 138 (136-145) mmol/L Potassium 4.4 (3.5-5.1) mmol/L Chloride 106 (98-107) mmol/L Carbon Dioxide 20.0 L (21.0-32.0) mmol/L Anion Gap 16.4 BUN 27.0 H (7.0-18.0) mg/dL Creatinine 0.94 (0.55-1.02) mg/dL Est GFR ( Amer) >60 (>=60) Est GFR (Non-Af Amer) 57 L (>=60) BUN/Creatinine Ratio 28.7 Glucose 82 (74-106) mg/dL Lactate 1.2 (0.4-2.0) mmol/L Calcium 8.1 L (8.5-10.1) mg/dL Total Bilirubin 0.3 (0.2-1.0) mg/dL AST 21 (15-37) U/L ALT 20 (14-59) U/L Alkaline Phosphatase 87 (46-116) U/L Troponin I High Sens 18.3 (4.0-51.3) pg/mL Total Protein 6.2 L (6.4-8.2) g/dL Albumin 3.2 L (3.4-5.0) g/dL Globulin 3.0 g/dL Albumin/Globulin Ratio 1.1 Urine Color Lt. yellow (YELLOW) Urine Clarity Clear (CLEAR) Urine pH 6.0 (5.0-9.0) Ur Specific [place] 1.020 (1.005-1.025) Urine Protein Negative (NEG/TRACE) mg/dL Urine Glucose (UA) Negative (NEGATIVE) mg/dL Urine Ketones Negative (NEGATIVE) mg/dL Urine Occult Blood Trace-i (NEGATIVE) Urine Nitrite Positive A (NEGATIVE) Urine Bilirubin Negative (NEGATIVE) Urine Urobilinogen 0.2 (0.2-1.0) EU/dL Ur Leukocyte Esterase Small A (NEGATIVE) Urine RBC 2-5 A (0-2) #/HPF Urine WBC 20-50 A (NONE SEEN) #/HPF Ur Squamous Epith Cells Rare (NONE/RARE) #/LPF Urine Crystals None seen (None Seen) #/HPF Urine Bacteria Moderate A (NONE SEEN) #/HPF Urine Casts None seen (NONE SEEN) #/LPF Urine Mucus None seen (NONE SEEN) Ur Culture Indicated? Yes ECG Data Attestation: I personally reviewed and interpreted this ECG as follows: (Paced rhythm at 99 bpm, no other acute findings noted) Discharge Plan Discharge Chief Complaint: Shortness of Breath/Dyspnea Clinical Impression: Shortness of breath, COPD (chronic obstructive pulmonary disease), Adult failure to thrive, Acute UTI Patient Disposition: Admitted as Observation Time of Disposition Decision: 00:41 Condition: Good
[2024-05-10 20:16] LABS: Basophils Absolute Auto 0.1 10^3/uL (0.0-0.1); Basophils Percent Auto 0.9 % (0.2-2.0); Eosinophils Absolute Auto 1.4 10^3/uL (0.0-0.7); Eosinophils Percent Auto 22.1 % (0.9-7.0); Hematocrit 36.6 % (36.0-48.0); Hemoglobin 11.7 g/dL (12.0-16.0); Immature Granulocytes Abs Auto 0.02 10^3/uL (0.00-0.03); Immature Granulocytes Pct Auto 0.3 % (0.0-0.5); Lymphocytes Percent Auto 31.2 % (20.5-60.0); Mean Corpuscular Volume 97.1 fL (81.0-99.0); Mean Platelet Volume 9.9 fL (9.5-13.5); Monocytes Absolute Auto 0.6 10^3/uL (0.3-0.8); Monocytes Percent Auto 9.3 % (1.7-12.0); Neutrophils Absolute Auto 2.3 10^3/uL (1.4-6.5); Neutrophils Percent Auto 36.2 % (43.0-75.0); Platelet Count 260 10^3/uL (150-450); Red Blood Count 3.77 10^6/uL (4.20-5.40); Red Cell Distribution Width 15.9 % (11.0-15.0); White Blood Count 6.3 10^3/uL (4.0-11.0)
[2024-05-10] MEDS: IPRATROPIUM/ALBUTEROL SULFATE 3 ML AMPUL.NEB IH (20:18)
[2024-05-10 20:41] LABS: Alanine Aminotransferase 20 U/L (14-59); Albumin Globulin Ratio 1.1; Albumin Level 3.2 g/dL (3.4-5.0); Alkaline Phosphatase 87 U/L (46-116); Anion Gap 16.4; Aspartate Amino Transferase 21 U/L (15-37); BUN Creatinine Ratio 28.7; Bilirubin Total 0.3 mg/dL (0.2-1.0); Calcium 8.1 mg/dL (8.5-10.1); Chloride 106 mmol/L (98-107); Estimated GFR (African America >60 (>=60); Estimated GFR (Non-African Ame 57 (>=60); Glucose 82 mg/dL (74-106); Potassium 4.4 mmol/L (3.5-5.1); Sodium 138 mmol/L (136-145); Total Protein 6.2 g/dL (6.4-8.2); Troponin I High Sensitivity 18.3 pg/mL (4.0-51.3)
[2024-05-10 20:43] LABS: D Dimer 4.15 mg/L FEU (<=0.59)
[2024-05-10] MEDS: METHYLPREDNISOLONE SOD SUCC PF 125 MG/2 ML VIAL IVP (20:45)
[2024-05-10] MEDS: 0.9 % SODIUM CHLORIDE 1,000 ML 100 ML IV (20:45)
--- NOTE | 2024-05-10 20:49 | CT_ITS ---
[address] [address] Patient Name: CECELIA VILLALPANDO MRN: [id number] date: 1940 Sex: F Assigned Patient Location: ER Current Patient Location: ER Accession/Order Number: [id number] Exam Date: 05/10/2024 09:19 Report Date: 05/10/2024 22:36 At the request of: PRINCESS MARKER Procedure: CT angio chest EXAM: CT angio chest, CT abdomen pelvis w con HISTORY: SOB, elevated d dimer COMPARISON: 04/22/2021 TECHNIQUE: CT angiography of the pulmonary arteries and CT of the abdomen and pelvis following the administration of intravenous contrast. Coronal and sagittal MIP (maximum intensity projection) images were performed. FINDINGS: TUBES AND IMPLANTS: Fixation hardware involving both proximal femurs. CHEST: CHEST WALL AND LOWER NECK: Unremarkable. MEDIASTINUM AND CARLOS: No hematoma. No enlarged lymph nodes by CT size criteria. Large hiatal hernia. AORTA: No aneurysm or dissection. HEART: Not enlarged PULMONARY ARTERIES: No embolism CORONARY ARTERIES: No coronary artery calcifications. LUNG AND AIRWAYS: Background of mild centrilobular emphysema PLEURA: Unremarkable. BONES: Osteopenia. Multilevel degenerative changes of the spine. Mild chronic appearing compression deformity of T9. ABDOMEN and PELVIS ABDOMINAL WALL AND SOFT TISSUES: Unremarkable. BONES: No suspicious lesions. Mild levoconvex scoliosis. Multilevel degenerative changes of the spine. ARTERIES: No aortoiliac aneurysm. VEINS: Unremarkable. LYMPH NODES: Unremarkable. PERITONEUM/ RETROPERITONEUM: Unremarkable. BOWEL: The nondilated large bowel appears diffusely distended with air-fluid levels . There is suggestion of mesenteric twisting with dilatation of focal small bowel loops which measure up to 3.9 centimeters (series 6, images 77-88). The remainder of the small bowel appears decompressed. APPENDIX: Unremarkable LIVER: No suspicious lesions. GALLBLADDER: Surgically absent BILE DUCTS: Prominent SPLEEN: Unremarkable. PANCREAS: Unremarkable. ADRENALS: Unremarkable. KIDNEYS/ URETERS: Unremarkable. REPRODUCTIVE ORGANS: Uterus is surgically absent. Bilateral ovaries are not clearly identified. URINARY BLADDER: Unremarkable. CT/CT angio chest IMPRESSION: 1. No evidence of acute pulmonary embolism. 2. Large hiatal hernia. 3. Background of mild centrilobular emphysema. 4. Suggestion of mesenteric twisting with dilatation of focal small bowel loops measuring up to 3.9 centimeters. This is concerning for a closed loop obstruction, alternatively this may represent an area of small bowel intussusception however there is no upstream dilatation of the remainder of the small bowel at this time. 5. Nondilated large bowel appears diffusely distended with air-fluid levels. This suggests an ileus. Electronically authenticated by: TRINI CISNEROS Date: 05/10/2024 22:36
--- NOTE | 2024-05-10 20:50 | CT_ITS ---
The [address] [address] Patient Name: CECELIA VILLALPANDO MRN: [id number] date: 1940 Sex: F Assigned Patient Location: ER Current Patient Location: ER Accession/Order Number: [id number] Exam Date: 05/10/2024 09:19 Report Date: 05/10/2024 22:36 At the request of: PRINCESS MARKER Procedure: CT abdomen pelvis w con EXAM: CT angio chest, CT abdomen pelvis w con HISTORY: SOB, elevated d dimer COMPARISON: 04/22/2021 TECHNIQUE: CT angiography of the pulmonary arteries and CT of the abdomen and pelvis following the administration of intravenous contrast. Coronal and sagittal MIP (maximum intensity projection) images were performed. FINDINGS: TUBES AND IMPLANTS: Fixation hardware involving both proximal femurs. CHEST: CHEST WALL AND LOWER NECK: Unremarkable. MEDIASTINUM AND CARLOS: No hematoma. No enlarged lymph nodes by CT size criteria. Large hiatal hernia. AORTA: No aneurysm or dissection. HEART: Not enlarged PULMONARY ARTERIES: No embolism CORONARY ARTERIES: No coronary artery calcifications. LUNG AND AIRWAYS: Background of mild centrilobular emphysema PLEURA: Unremarkable. BONES: Osteopenia. Multilevel degenerative changes of the spine. Mild chronic appearing compression deformity of T9. ABDOMEN and PELVIS ABDOMINAL WALL AND SOFT TISSUES: Unremarkable. BONES: No suspicious lesions. Mild levoconvex scoliosis. Multilevel degenerative changes of the spine. ARTERIES: No aortoiliac aneurysm. VEINS: Unremarkable. LYMPH NODES: Unremarkable. PERITONEUM/ RETROPERITONEUM: Unremarkable. BOWEL: The nondilated large bowel appears diffusely distended with air-fluid levels . There is suggestion of mesenteric twisting with dilatation of focal small bowel loops which measure up to 3.9 centimeters (series 6, images 77-88). The remainder of the small bowel appears decompressed. APPENDIX: Unremarkable LIVER: No suspicious lesions. GALLBLADDER: Surgically absent BILE DUCTS: Prominent SPLEEN: Unremarkable. PANCREAS: Unremarkable. ADRENALS: Unremarkable. KIDNEYS/ URETERS: Unremarkable. REPRODUCTIVE ORGANS: Uterus is surgically absent. Bilateral ovaries are not clearly identified. URINARY BLADDER: Unremarkable. CT/CT abdomen pelvis w con IMPRESSION: 1. No evidence of acute pulmonary embolism. 2. Large hiatal hernia. 3. Background of mild centrilobular emphysema. 4. Suggestion of mesenteric twisting with dilatation of focal small bowel loops measuring up to 3.9 centimeters. This is concerning for a closed loop obstruction, alternatively this may represent an area of small bowel intussusception however there is no upstream dilatation of the remainder of the small bowel at this time. 5. Nondilated large bowel appears diffusely distended with air-fluid levels. This suggests an ileus. Electronically authenticated by: TRINI CISNEROS Date: 05/10/2024 22:36
[2024-05-10 20:56] LABS: Bilirubin Urine NEGATIVE (NEGATIVE); Blood Urine TRACE-I (NEGATIVE); Clarity Urine CLEAR (CLEAR); Color Urine LT. YELLOW (YELLOW); Glucose Urine UA NEGATIVE (NEGATIVE); Ketones Urine NEGATIVE (NEGATIVE); Leukocyte Esterase Urine SMALL (NEGATIVE); Nitrite Urine POSITIVE (NEGATIVE); Protein Urine NEGATIVE (NEG/TRACE); Urobilinogen Urine 0.2 EU/dL (0.2-1.0)
[2024-05-10 21:10] LABS: Bacteria Urine MODERATE #/HPF (NONE SEEN); Mucus Urine NONE SEEN (NONE SEEN); Squamous Epithelial Cell Urine RARE #/LPF (NONE/RARE); WBC Urine 20-50 #/HPF (NONE SEEN)
[2024-05-10 21:11] LABS: Cast Seen? NONE SEEN #/LPF (NONE SEEN); Crystals Seen? None Seen #/HPF (None Seen); Urine Culture Indicated YES
[2024-05-10] MEDS: CEFTRIAXONE 1,000 MG in 0.9 % SODIUM CHLORIDE 50 ML 100 MG IV (21:59)
[2024-05-10 23:07] LABS: Lactate/Lactic Acid 1.2 mmol/L (0.4-2.0)
[2024-05-11] VITALS (22 sets, daily range): BP systolic 98–115; BP diastolic 57–76; PULSE 86–108; TEMP 36.3–36.7; O2SAT 93–97; BMI 15.1
--- OUTSIDE RECORDS SUMMARY | 2024-05-11 00:26 | XMS_ITS ---
Author Name Auto Generated Organization OHIP Support Name Relationship Address Phone ALEXIA DOMINGUEZ Next of Kin Unknown [phone] IRASEMA, ALEXIA Next of Kin Unknown [phone] DOMINGUEZ, ALEXIA Next of Kin Unknown [phone] DOMINGUEZ, ALEXIA Next of Kin Unknown [phone] DOMINGUEZ, ALEXIA Next of Kin Unknown [phone] DOMINGUEZ, ALEXIA Next of Kin Unknown [phone] DOMINGUEZ, ALEXIA Next of Kin Unknown [phone] DOMINGUEZ, ALEXIA Next of Kin Unknown [phone] DOMINGUEZ, RISA Next of Kin Unknown [phone] ANAY DOMINGUEZ Next of Kin Unknown [phone] KAIT DOMINGUEZ Next of Kin Unknown [phone] DOMINGUEZ, RISA Next of Kin Unknown [phone] ANAY DOMINGUEZ Next of Kin Unknown [phone] KAIT DOMINGUEZ Next of Kin Unknown [phone] DOMINGUEZ, RISA Next of Kin Unknown [phone] DOMINGUEZ, ANAY Next of Kin Unknown [phone] IRASEMA KAIT Next of Kin Unknown [phone] DOMINGUEZ, RISA Next of Kin Unknown [phone] IRASEMA ANAY Next of Kin Unknown [phone] KAIT DOMINGUEZ Next of Kin Unknown [phone] IRASEMA RISA Next of Kin Unknown [phone] ANAY DOMINGUEZ Next of Kin Unknown [phone] KAIT DOMINGUEZ Next of Kin Unknown [phone] RISA DOMINGUEZ Next of Kin Unknown [phone] ANAY DOMINGUEZ Next of Kin Unknown [phone] KAIT DOMINGUEZ Next of Kin Unknown [phone] RISA DOMINGUEZ Next of Kin Unknown [phone] ANAY DOMINGUEZ Next of Kin Unknown [phone] KAIT DOMINGUEZ Next of Kin Unknown [phone] Care Team Providers Care Radiology Manager Name Role Phone ORLANDO PACHECO Admitting Unavailable MIREYA TOLENTINO Attending Unavailable PADMINI TREVIÑO Attending Unavailable FELICIA MEDINA Referring Unavailable FELICIA MEDINA Referring Unavailable ISSA RICHARDS Referring Unavailable ISSA RICHARDS Referring Unavailable CAMILLE CONCEPCION Referring UnavailPADMINI Hair Attending Unavailable MICHAELA RICHARDSON Attending Unavailable NICHOLAS HAYES Attending Unavailable MICHAELA RICHARDSON Attending Unavailable JUANA MCDANIELS Attending Unavailable PROBLEMS DATE TYPE CONDITION / CODE ATTENDING STATUS [facility] 04/01/2024 Admitting Diagnosis Atrioventricular block, complete / I44.2(ICD-10) MIREYA TOLENTINO Active [facility] 04/01/2024 Admitting Diagnosis Cardiac murmur, unspecified / R01.1(ICD-10) [facility] Active [facility] 04/01/2024 Admitting Diagnosis Bradycardia, unspecified / R00.1(ICD-10) [facility] Active [facility] 04/01/2024 Admitting Diagnosis Paroxysmal atrial fibrillation / I48.0(ICD-10) [facility]INDER, [facility] Active [facility] 04/01/2024 Admitting Diagnosis Presence of cardiac pacemaker / Z95.0(ICD-10) [facility] 04/01/2024 Admitting Diagnosis Hypothyroidism, unspecified / E03.9(ICD-10) PADMINI TREVIÑO Active [facility] 04/01/2024 Admitting Diagnosis Other forms of dyspnea / R06.09(ICD-10) PADMINI TREVIÑO Active [facility] PROCEDURES No Procedure Records Found RESULTS OFFICE VISIT Observed: 04/11/2024 9:40 AM Status: COMPLETED Source: [facility] REPOSITORY [id number] Salome Dominguez F Date Provider Department Center 04/11/2024 [id number]-EMJVOLPADMINI TREVIÑO [facility] Family History Problem Relation Age of Onset Stroke Mother Other Mother No Known Problems Father Family Status - Relation Status Age at Mother Father Level of Service:[id number] [place] POSTOP FOLLOW UP VISIT RELATED TO ORIGINAL PX PROGRESS Observed: 04/11/2024 9:40 AM Status: COMPLETED Source: [facility] Office Cardiology Clinic Note Reason for cardiology [...] with cardiology nurse practitioner on 04/29/2020 Padmini Treviño MD, FACC PROGRESS Observed: 04/05/2024 12:15 PM Status: COMPLETED Source: [facility] REPOSITORY Adult Nutrition Assessment: Name: Salome Dominguez Date: 1940 Date of [...] subcutaneous, Daily levothyroxine, 75 mcg, oral, Daily frcnxb-jkdmrsrr-uurlvuu, 1 capsule, oral, TID with meals metoprolol succinate XL, 12.5 mg, oral, Daily olopatadine, 1 drop, Both Eyes, BID pantoprazole, 40 mg, oral, Daily Labs: 0 Lab Value Date/Time BUN 19 04/01/20241904 CREATININE 0.83 04/01/20241904 NA 135 (L) 04/01/20245 K 4.3 04/01/20241904 HGB 9.8 (L) 04/05/2024 0541 WBC 4.03 04/01/20245 I/O: Intake/Output Summary (Last 24 hours) at [...] Special Kitchen Request Once Comments: Zay 2 maori toast, butter and syrup.turkey sausage, grits with brown sugar and butter, raspberry bulgarian,orange juice and coffee, cream and sugar 04/03/24 0826 04/02/24 1302 Special Kitchen Request Once Comments: Plian send hot roast beef sandwich, mashed potatoes and gravy, Chicken noodle soup, Ramos pie,diet cola, cottage cheese 04/02/24 1303 Meal Intakes: no meals recorded Nutrition Risk: High Nutrition Needs: Needs based on: actual body weight Calorie needs: 4404-4218 kcals/day based on Equation: 25-30 kcal/kg MSJ x 1,7=8239 flori Protein needs: 41-49 g/day based on [...] Hand Grasp: Weak L Hand Grasp: 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 For weekends & holidays, the dietitian can be reached via pager [phone] from 9A-3P. Unable to respond to [employer] chat messages on Thursday & . DS Observed: 04/05/2024 12:12 PM Status: COMPLETED Source: [facility] Medicine Discharge Summary Final Discharge Diagnosis: Complete [...] placement. Patient underwent implementation of dual-chamber pacemaker, [employer] on 04/04 and did fairly well. [...] Provider Department Center 04/11/2024 9:40 AM Padmini Treviño MD [facility] 04/29/2024 1:40 PM Sammie Miles NP [facility] Your medication list START taking these [...] HYDROcodone-acetaminophen 5-325 mg tablet Commonly known as: Ashcamp Take 1 tablet by mouth every 6 [...] Creon 3,000-9,500- 15,000 unit capsule Generic drug: eckdmj-uilegdvd-kdpzksg levothyroxine 75 mcg tablet Commonly known as: Synthroid, Levoxyl Vitamin B-12 1,000 mcg tablet Generic drug: cyanocobalamin Where to Get Your Medications These medications were sent to [facility]/pharmacy #[id number] - [address] [place] [address] doxycycline 100 mg capsule metoprolol succinate XL 25 mg 24 hr tablet You can get these medications from any pharmacy Bring a paper prescription for each of these medications HYDROcodone-acetaminophen 5-325 mg tablet Salome is allergic to psyllium. Disposition: Home-Health Care [facility] (06) Discharge Condition: Stable Code Status: Full Code [...] was 60 minutes. Signed Mireya Tolentino MD [facility] Medicine 04/05/2024 12:16 PM PROGRESS Observed: 04/05/2024 11:53 AM Status: COMPLETED Source: [facility] REPOSITORY Occupational Therapy Occupational Therapy Evaluation Patient Name: [...] at home . Implantation of dual chamber PPM([employer]): submuscular implant 04/04/24 General Subjective: friendly and cooperative questionable reliability as an accurate historian Patient Active Problem List Diagnosis Abdominal pain, left lower quadrant Acute combined systolic and diastolic heart failure (CMS/HCC) Age related osteoporosis Dementia (CMS/HCC) Anxiety disorder, unspecified Asymptomatic varicose veins Ataxic gait Bacterial overgrowth syndrome Biliary cirrhosis (CMS/HCC) Bladder atonia Cardiomegaly Chronic fatigue, unspecified Chronic insomnia Chronic obstructive pulmonary disease with (acute) exacerbation (CMS/HCC) Coronary atherosclerosis Decreased estrogen level Diabetes mellitus (CMS/HCC) Diarrhea Diastolic dysfunction Disease of tricuspid valve Mitral valve disorder Embolism and thrombosis (CMS/HCC) Essential (primary) hypertension Frequent falls Gastro-esophageal reflux [...] feet Other seborrheic keratosis Paroxysmal atrial fibrillation (CMS/HCC) Pure hypercholesterolemia Restless legs syndrome Sensorineural hearing loss, bilateral Transient cerebral ischemia Bradycardia Complete heart block (CMS/HCC) Murmur, heart SERRANO (dyspnea on exertion) Third degree heart block (CMS/HCC) Past Medical History: Diagnosis Date Abnormal ECG Alzheimer disease (CMS/HCC) Asthma Atrial fibrillation (CMS/HCC) Bradycardia COPD (chronic obstructive pulmonary disease) (CMS/HCC) Dementia (CMS/HCC) Hypothyroidism RLS (restless legs syndrome) Past Surgical [...] function) General Assessment General Assessment Hearing: (mild shinnecock) Hand Dominance: Right Home Living Home Living Type of Home: Senior apartment ([facility]) Lives With: Spouse Home Adaptive Equipment: Walker rolling, Cane (me, gb, [facility]) Home Layout: One level Home Access: Level entry Bathroom Shower/Tub: Walk-in shower Prior Level of Function Prior Function Level of Melvin: Independent with ADLs and functional transfers, Independent [...] Current Vision: No visual deficits Sensation Light Touch: No apparent deficits Coordination Movements are Fluid and Coordinated: Yes Extremity Assessments RUE Assessment RUE Assessment: Within Functional Limits LUE Assessment LUE Assessment: (MMT deferred) Outcome Assessments AM-PAC 6 Clicks Putting on and taking off regular lower body clothing?: A Little (Min Assist/Contact Guard/Supervision) Bathing(Including washing,rinsing,drying)?: A Little (Min Assist/Contact Guard/Supervision) Toileting, which includes using the toilet,bedpan,or urinal?: A Little (Min Assist/Contact Guard/Supervision) Putting on and taking off regular upper body clothing?: A Little (Min Assist/Contact Guard/Supervision) Taking care of personal grooming such as brushing teeth?: None (Independent) Eating meals?: None (Independent) Total Score OT [facility]: 20 Assessment/Plan OT Assessment OT Assessment/ZAID Summary: (no further skilled OT needed at this time) Medical Staff Made Aware: Yes OT Education/Comments: (pacer handout issued with extensive discussion, ppm precautions, general home safety, bed mob, UB/LB adl and adl transfer all with fair return demo. nsg reports d/c orders are completed ,) Plan Treatment Interventions: ADL retraining, Functional transfer training, Patient/family training OT Plan: No skilled OT OT Discharge Recommendations: Home OT - Discharge Recommendations Placed: Yes OT Goals Multi-Disciplinary Problems (from Occupational Therapy) Active Problems Not on file PROGRESS Observed: 04/05/2024 9:06 AM Status: COMPLETED Source: [facility] REPOSITORY [facility] CARDIOLOGY INPATIENT PRO MIREYA NOTE Reason for follow up: heart block [...] patient plan for outpatient ischemic workup. [facility] Allergies Allergen Reactions Psyllium Anaphylaxis, Rash and Unknown CURRENT MEDS doxycycline, 100 mg, oral, BID enoxaparin, 40 mg, subcutaneous, Daily levothyroxine, 75 mcg, oral, Daily ofppnt-vnugmiyg-vikulkb, 1 capsule, oral, TID with meals olopatadine, [...] -- -- 87 21 96 % -- 07/08/24 1515 99/79 -- -- 89 18 94 [...] focal airspace disease. Slight hyperinflation. Normal cardiomediastinal silhouette Electronically signed: Jackson Santos MD. CV Testing: Encounter Date: 04/01/24 ECG 12 lead Result Value Ventricular Rate 84 Atrial Rate 84 [place] Interval 140 QRS DURATION 164 QT Interval 448 QTC CALCULATION(BAZETT) 529 P Wharncliffe 70 R-Wharncliffe 73 T Wave Wharncliffe -83 Impression Atrial-sensed ventricular-paced rhythm Abnormal ECG When compared with ECG of 01-APR-2024 18:43, Electronic ventricular pacemaker has replaced Idioventricular rhythm Vent. rate has increased BY 48 BPM Confirmed by Radha DUFFY, SHAWNA Montemayor (57) on 04/04/2024 5:22:27 PM DUAL CHAMBER PACEMAKER IMPLANT PROCEDURE NOTE DATE OF PROCEDURE: 04/04/2024 PERFORMING PHYSICIAN: Dr. Issa Richards PROCEDURE PERFORMED: 1. Implantation of dual chamber PPM([employer]): submuscular implant. 2. U/S venous access 3. Conscious sedation 4. Fluroscopy INDICATIONS: Complete heart block Bradycardia INDICATION: 83 y.o. 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 Patient's daughter reports that patient had bradycardia for years but got worse and in ED was noted to be with complete heart block with junctional escape at 40bpm. She was brought for PPM. POST PROCEDURE EXAM: Patient was hemodynamically stable. [...] x 2 weeks Issa Richards Cardiac Electrophysiology Complete TTE 04/04/24: Conclusions Left Ventricle: The left ventricle is normal size. Global left ventricular systolic function is moderately reduced. The EF is 35 % visually. Left ventricular wall thickness is mildly increased. Regional wall motion abnormalities (see diagram). Unable to assess diastolic dysfunction. Concentric left ventricular hypertrophy. Right Ventricle: The right ventricle is normal in size. Right ventricular systolic function appears normal. Doppler studies suggest moderately elevated right sided pressures (elevated pulmonary pressure). Left Atrium: The left atrium is severely enlarged. Mitral Valve: Moderate mitral regurgitation. Aortic Valve: Trivial aortic valve regurgitation. Mild aortic valve stenosis. Aortic Valve Measurements AV PGmean: 17.00 mmHg. AV DVI: 0.27. Tricuspid Valve: Moderate tricuspid regurgitation. Overall Conclusions: Due to suboptimal imaging Lumason contrast was administered for opacification and better delineation of endocardial borders. Assessment/Plan Assessment: Complete heart block s/p PPM implant 04/04/24 Remote history of paroxysmal A-fib not on anticoagulation due to recurrent falls Dementia Asthma Hypothyroidism Valvular disease - Moderate TR and moderate MR, aortic valve mild stenosis New diagnosis of HFrEF, NYHA I-II, compensated -EF 35% on TTE, previous known EF 55% (2008) Plan: Post pacemaker precautions, reviewed with patient. Continue course of doxycycline 100 mg BID for surgical site prophylaxis. CXR reviewed - leads intact, no pneumothorax. Echo with moderate MR and TR, and mild AV stenosis, EF 35%. She denies symptoms. No edema. Plan for outpatient ischemic workup with stress testing. HF GDMT: patient is elderly and frail. BP low normal (systolic low 100's). Will start toprol XL 12.5 mg daily. Addition of further GDMT as outpatient as tolerated. Continue Telemetry monitoring Monitor electrolytes, Keep Mag above 2 and Potassium above 4 Cardiology will follow along. No objection to discharge. Device clinic and provider follow up in clinic as scheduled. Discussed case with attending shellfish farming supervisor, Dr. Duffy. Hospitalist informed of plan. Dionna Asencoi CNP Division of Cardiology, [facility] Available via Te[employer] 7a-5p Pager- [phone] HEMOGLOBIN AND HEMATOCRIT, BLOOD Collected: 04/05/2024 5:41 AM Status: UNK Source: [facility] REPOSITORY TYPE CODE TESTS RESULT OUT OF RANGE REFERENCE UNITS LAB 3790368 HEMOGLOBIN (G/DL) IN BLOOD 9.8 Low 12.0-15.0 g/dL LAB [id number] HEMATOCRIT (%) IN BLOOD BY AUTOMATED COUNT 29.6 Low 36.0-48.0 % Performed By: #### [id number] ## ## [facility] (BEAK[facility]) [address] [place] [address] 30 Observed: 04/04/2024 8:58 PM Status: COMPLETED Source: [facility] REPOSITORY The patient is Moderately St able - Low risk of patient condition declining [...] goals for the shift include stable vitals PROCEDURE Observed: 04/04/2024 2:56 PM Status: COMPLETED Source: [facility] REPOSITORY DUAL CHAMBER PACEMAKER IMPLA NT PROCEDURE NOTE DATE OF PROCEDURE: 04/04/2024 PERFORMING PHYSICIAN: Dr. Issa Richards POLYMERIZATION OVEN TENDER: MIKE CONSENT: Patient LOCATION: Weekend Caregiver PROCEDURE PERFORMED: 1. Implantation of dual chamber PPM([employer]): submuscular implant. 2. 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 Patient's daughter reports that [...] occasions using seldinger technique using a 5 Sami micropunture needle and exchanged for 0.034 wire. I decided to proceed with opening of the pocket. Localinfiltration of 1% Lidocaine was performed and an incision was created in the left upper chest. Dissection was then performed using cautery down. An active fixation [employer] pacing lead was then delivered via SPCC1 His sheath through the 9F sheath to the right ventricle. After confirmation of lead position on orthogonal views (CHIRINOS and PALAUAN) to confirm position in the septal aspect, [...] three 0- Silk sutures. An active fixation [employer] RA pacing lead was then delivered through the 6Fsheath to the right atrial appendage. After confirmation of lead position on orthogonal views (CHIRINOS and PALAUAN) to confirm position in the appendage, the screw was activated. After confirmation of good sensing parameters, injury pattern and pacing thresholds, 10V pacing was done and no diaphragmatic stimulation was noted. It was then secured in the pocket using three 1-0 Silk sutures. At this stage, given the good thresholds, the backup His lead was removed. The leads were then attached to a [employer] PPM device and the leads tug tested. [...] x 2 weeks Issa Richards Cardiac Electrophysiology 30 Observed: 04/04/2024 1:23 PM Status: COMPLETED Source: [facility] REPOSITORY Daily Case Management Update Multidisciplinary rounds have been completed. Barriers to Discharge: Pending Clinical Course. Admitted with Third degree heart block-Planning PPM implantation today. Planning to Return [place] at [facility] with on discharge. Diet: Dietary Orders (From admission, onward) Start Ordered 04/04/24 0001 Diet NPO Diet effective midnight Comments: Sips with medications Question: Reason for NPO: Answer: Operation/Procedure 04/03/24 0744 04/03/24 1233 Special Kitchen Request Once Comments: Grilled cheese on wheat, vanilla ice, fruit cup, 2 diet coke 04/03/24 1235 04/03/24 0824 Special Kitchen Request Once Comments: Plz 2 maori toast, butter and syrup.turkey sausage, grits with brown sugar and butter, raspberry bulgarian,orange juice and coffee, cream and sugar 04/03/24 0826 04/02/24 1302 Special Kitchen Request Once Comments: Plz send hot roast beef sandwich, mashed potatoes and gravy, Chicken noodle soup, Ramos pie,diet cola, cottage cheese 04/02/24 1303 Physician Expected Discharge Date: 04/05/2024 Discharge Delays: PT Six Click Score: 23 OT Six Click Score: PT Recommendations: OT Recommendations: New Consults: ANES Observed: 04/04/2024 12:48 PM Status: COMPLETED Source: [facility] REPOSITORY Patient: Salome Domingeuz Procedure Information Date/Time: 04/04/24 1258 Procedure: Implant PPM Location: [facility] SCIENTIFIC DATABASE CURATOR 1 / [facility] (Cath) Providers: Issa Richards MD Clinical information reviewed: Tobacco Allergies Problems Med Hx Surg Hx OB Status Fam Hx Physical Exam Airway Mallampati: II TM distance: >3 FB Neck ROM: full Cardiovascular Dental Pulmonary Abdominal Anesthesia Plan ASA 2 CSE Anesthetic plan and risks discussed with patient. Use of blood products discussed with patient who. Additional Equipment Requests HP Observed: 04/04/2024 12:47 PM Status: COMPLETED Source: [facility] REPOSITORY H&P reviewed. The patient wa s examined and there are no changes to [...] have agreed to proceed with the procedure. PROGRESS Observed: 04/04/2024 9:43 AM Status: COMPLETED Source: [facility] Hospital Medicine Daily Progress Note - 04/04/2024 9:43 AM; Room: [facility]313[facility] Admission: 04/01/2024 5:28 PM; Length of stay: 3 days THE HOSPITALIST TEAM PREFERS TO USE [employer] CHAT FOR COMMUNICATION 7AM-7PM. IF I DO NOT RESPOND WITHIN 15 MINUTES, PLEASE PAGE ME/CALL THROUGH THE ROLLER CHECKER. FROM 7PM-7AM, PLEASE PAGE [phone](COVR) Code Status: Full Code Barriers to Discharge: [...] dyspnea, orthopnea, pre-syncope, syncope). EKG taken at [facility] on 02/10 showed first degree AV block [...] 11:30 PM 04/04/2024 8:00 AM Site Assessment [place] Prophylaxis: Lovenox Scheduled Meds ceFAZolin (Ancef) 1,000 mg, gentamicin (Garamycin) 80 mg in sodium chloride irrigation solution 0.9 % 500 mL IRRIGATION, , irrigation, Once ceFAZolin, 2 g, intravenous, Once enoxaparin, 40 mg, subcutaneous, Daily levothyroxine, 75 mcg, oral, Daily qkanam-inflqucd-rhecazs, 1 capsule, oral, TID with meals olopatadine, [...] FREET4 0.77 04/01/2024 No results found for: [id number] , IRON , TIBC , C3 , [...] process. Approved by:Home Galloway04/01/2024 6:58 PM. I, Shamar Olmedo,have reviewed the image(s) and agree with the findings in this report. Electronically signed: Shamar Olmedo. Signed [facility] 04/04/2024 9:43 AM I performed a history and physical examination of Salome Dominguez and discussed her management with medical student. I agree with the history, physical, assessment, and plan of care, with the following exceptions: None Mireya Tolentino MD 30 Observed: 04/04/2024 8:57 AM Status: COMPLETED Source: [facility] REPOSITORY The patient is Moderately St able - Low risk of patient condition declining or worsening The patient's goals for the shift include comfort The clinical goals for the shift include Vss, safety Over the shift, the patient did not make progress toward the following goals. Barriers to progression include na. Recommendations to address these barriers include na. PROGRESS Observed: 04/04/2024 8:23 AM Status: COMPLETED Source: [facility] REPOSITORY Attestation signed by Shawna Duffy MD at 04/04/2024 5:15 PM GC: I saw this patient. I personally performed the critical/hernandez portions that determines the level of service. I was directly involved in the management and treatment plan of the patient. I reviewed resident Dr. Pelaez's note and agree with the documentation Cardiology Progress Note REASON FOR CONSULT Reason [...] mg, 650 mg, oral, q6h PRN, Camille Concepcion MD albuterol 90 mcg/actuation inhaler 2 puff, 2 puff, inhalation, q4h PRN, Camille Concepcion MD alum-mag hydroxide-simeth (Mylanta) 200-200-20 mg/5 mL oral suspension 20 mL, 20 mL, oral, TID PRN, Camille Concepcion MD enoxaparin (Lovenox) syringe 40 mg, 40 mg, subcutaneous, Daily, Camille Concepcion MD, 40 mg at 04/03/24 0818 fentaNYL (Sublimaze) injection, , , PRN, Issa Richards MD, 12.5 mcg at 04/04/24 1435 hydrOXYzine pamoate (Vistaril) capsule 25 mg, 25 mg, oral, BID PRN, Camille Concepcion MD levothyroxine (Synthroid, Levoxyl) tablet 75 mcg, 75 mcg, oral, Daily, Camille Concepcion MD, 75 mcg at 04/04/24 0508 lidocaine (PF) (Xylocaine) 10 mg/mL (1 %) injection, , , PRN, Issa Richards MD, 30 mL at 04/04/24 1328 vphmuh-psgnqwcn-cikxzvx (Creon) 3,000-9,500- 15,000 unit per capsule 1 capsule, 1 capsule, oral, TID with meals, Mireya Tolentino MD, 1 capsule at 04/03/24 1644 melatonin tablet 5 mg, 5 mg, oral, Nightly PRN, Camille Concepcion MD midazolam (Versed) injection, , , PRN, Issa Richards MD, 0.5 mg at 04/04/24 1435 olopatadine (Patanol) 0.1 % ophthalmic solution 1 drop, 1 drop, Both Eyes, BID, Ludivina Rios NP, 1 drop at 04/04/24 0952 pantoprazole (ProtoNix) EC tablet 40 mg, 40 mg, oral, Daily, Camille Concepcion MD, 40 mg at 04/04/24 0508 sennosides-docusate sodium (Calli-Colace) 8.6-50 mg per tablet 1 tablet, 1 tablet, oral, Daily PRN, Camille Concepcion MD sodium chloride 0.9 % infusion, , [...] Mirian Pelaez MD PGY3 Internal Medicine [facility] PROGRESS Observed: 04/03/2024 12:04 PM Status: COMPLETED Source: [facility] Medicine Daily Progress Note - 04/03/2024 12:05 PM; Room: [address] [place] [address] Admission: 04/01/2024 5:28 PM; Length of stay: 2 days THE HOSPITALIST TEAM PREFERS TO USE LogicMonitor CHAT FOR COMMUNICATION 7AM-7PM. IF I DO NOT RESPOND WITHIN 15 MINUTES, PLEASE PAGE ME/CALL THROUGH THE ROLLER CHECKER. FROM 7PM-7AM, PLEASE PAGE [phone](COVR) Code Status: Full Code Barriers to Discharge: [...] 11:30 PM 04/03/2024 8:00 AM Site Assessment Red;[place] Red;[place] VTE Prophylaxis: Lovenox Scheduled Meds enoxaparin, 40 mg, subcutaneous, Daily levothyroxine, 75 mcg, oral, Daily dgrvnp-eljegpbk-vsgkxha, 1 capsule, oral, TID with meals pantoprazole, [...] FREET4 0.77 04/01/2024 No results found for: [id number] , IRON , TIBC , C3 , [...] process. Approved by:Home Galloway04/01/2024 6:58 PM. I, Shamar Olmedo,have reviewed the image(s) and agree with the findings in this report. Electronically signed: Shamar Olmedo. Discharge Planning Signed Mireya Tolentino MD Hospital Medicine 04/03/2024 12:05 PM PROGRESS Observed: 04/03/2024 10:44 AM Status: COMPLETED Source: [facility] REPOSITORY Attestation signed by Shawna Duffy MD at 04/04/2024 9:25 AM GC: I saw this patient. I personally performed the critical/hernandez portions that determines the level of service. I was directly involved in the management and treatment plan of the patient. I reviewed fellow Dr. Valdez's note and agree with the documentation Cardiology Progress Note Subjective Subjective: Salome Dominguez [...] QT Interval 532 QTC CALCULATION(BAZETT) 411 P [place] 82 R-Wharncliffe -60 T Wave [place] 71 Impression Sinus rhythm with complete heart block and Idioventricular rhythm Right bundle branch block Left anterior fascicular block Bifascicular block Anterior infarct , age undetermined Abnormal ECG No previous ECGs available Confirmed by Radha DUFFY, SHAWNA Montemayor (55) on 04/02/2024 12:19:54 PM Lab Results [...] No previous ECGs available Confirmed by Radha DUFFY, SHAWNA Montemayor (55) on 04/02/2024 12:19:54 PM Assessment: Complete heart block Remote history of paroxysmal A-fib not on anticoagulation due to recurrent falls Dementia Asthma Hypothyroidism Plan: Check echocardiogram Pacemaker placement on Thursday Correct hypothyroidism, Cardiology will follow along Orlando Valdez MD Billing And Accounting Staff Assistant PGY-4 [facility] 30 Observed: 04/03/2024 9:26 AM Status: COMPLETED Source: [facility] REPOSITORY The patient is Moderately St able - Low risk of patient condition declining or worsening The patient's goals for the shift include comfort and rest The clinical goals for the shift include stable VS Over the shift, the patient did not make progress toward the following goals. Barriers to progression include na. Recommendations to address these barriers include na. 30 Observed: 04/03/2024 3:56 AM Status: COMPLETED Source: [facility] REPOSITORY The patient is Moderately St able - Low risk of patient condition declining or worsening The patient's goals for the shift include comfort and rest The clinical goals for the shift include stable VS Over the shift, the patient continues to make progress toward the following goals. PROGRESS Observed: 04/02/2024 11:28 AM Status: COMPLETED Source: [facility] REPOSITORY Hospital Medicine Daily Progress Note - 04/02/2024 11:29 AM; Room: [address] [place] [address] Admission: 04/01/2024 5:28 PM; Length of stay: 1 days THE HOSPITALIST TEAM PREFERS TO USE [employer] CHAT FOR COMMUNICATION 7AM-7PM. IF I DO NOT RESPOND WITHIN 15 MINUTES, PLEASE PAGE ME/CALL THROUGH THE ROLLER CHECKER. FROM 7PM-7AM, PLEASE PAGE [phone](COVR) Code Status: Full Code Barriers to Discharge: [...] 11:30 PM 04/02/2024 9:00 AM Site Assessment Red;[place] Red;[place] VTE Prophylaxis: Lovenox Scheduled Meds [START ON [...] FREET4 0.77 04/01/2024 No results found for: [id number] , IRON , TIBC , C3 , [...] process. Approved by:Home Galloway04/01/2024 6:58 PM. I, Shamar Olmedo,have reviewed the image(s) and agree with the findings in this report. Electronically signed: Shamar Olmedo. Discharge Planning Signed Mireya Tolentino MD [facility] Medicine 04/02/2024 11:29 AM CONSULT Observed: 04/02/2024 10:30 AM Status: COMPLETED Source: [facility] REPOSITORY Attestation signed by Shawna Duffy MD at [...] exertional dyspnea, orthopnea/PND, lower extremity edema, palpitations, lightheadedness/dizziness, syncope. RESPIRATORY: Denies SOB, coughing, wheezing GI: [...] QT Interval 532 QTC CALCULATION(BAZETT) 411 P [place] 82 R-[place]arn[place] -60 T Wave [place] 71 Impression Sinus rhythm with complete heart [...] process. Approved by:Home Galloway04/01/2024 6:58 PM. I, Shamar Olmedo,have reviewed the image(s) and agree with the findings in this report. Electronically signed: Shamar Olmedo. Assessment: Complete heart block Remote history of paroxysmal A-fib not on anticoagulation due to recurrent falls Dementia Asthma Hypothyroidism Plan: Check echocardiogram Pacemaker placement on Thursday Correct hypothyroidism, Cardiology will follow along Orlando Valdez MD Billing And Accounting Staff Assistant - PGY4 [facility] 30 Observed: 04/02/2024 9:38 AM Status: COMPLETED Source: [facility] REPOSITORY The patient is Moderately St able - Low risk of patient condition declining or worsening The patient's goals for the shift include The clinical goals for the shift include vss Over the shift, the patient did not make progress toward the following goals. Barriers to progression include na. Recommendations to address these barriers include na. 30 Observed: 04/02/2024 5:43 AM Status: COMPLETED Source: [facility] REPOSITORY The patient is Moderately St able - Low risk of patient condition declining or worsening The patient's goals for the shift include The clinical goals for the shift include vss Over the shift, the patient continues to make progress toward the following goal. HP Observed: 04/01/2024 11:08 PM Status: COMPLETED Source: [facility] Medicine History and Physical 04/01/2024 11:08 PM THE HOSPITALIST TEAM PREFERS TO USE [employer] CHAT FOR COMMUNICATION 7AM-7PM. IF I DO NOT RESPOND WITHIN 15 MINUTES, PLEASE PAGE ME/CALL THROUGH THE ROLLER CHECKER. FROM 7PM-7AM, PLEASE PAGE [phone](COVR) Chief Complaint Chief Complaint Patient presents with Bradycardia Pt sent by [facility] for bradycardia. Pt c/o occasional SOB but denies being symptomatic otherwise. History of Present Illness Salome Dominguez is an 83 y.o. female who came from home with past medical history of hypothyroidism, anemia, COPD, aortic valve stenosis, asthma and dementia presented to ER per recommendation of her shellfish farming supervisor that the patient saw today because of [...] Date Noted Bradycardia 04/01/2024 Complete heart block ([facility]/HCC) 04/01/2024 Murmur, heart 04/01/2024 SERRANO (dyspnea on exertion) 04/01/2024 Third degree heart block (CMS/HCC) 04/01/2024 Dementia ([facility]) 03/15/2024 Hypothyroidism 03/15/2024 Long-term use of high-risk medication 03/15/2024 Lesion of skin of scalp 07/01/2023 Sensorineural hearing loss, bilateral 07/01/2023 Acute combined systolic and diastolic heart failure (CMS/HCC) 06/30/2023 Chronic fatigue, unspecified 06/30/2023 Diabetes mellitus ([facility]/HCC) 06/30/2023 Essential (primary) hypertension 06/30/2023 Age related [...] Moderate episode of recurrent major depressive disorder ([facility]/HCC) 06/08/2023 Moderate persistent asthma without complication 06/08/2023 Myositis 06/08/2023 Nonrheumatic aortic valve stenosis 06/08/2023 Osteoarthritis of lumbar spine 06/08/2023 Other congenital valgus deformity of feet 06/08/2023 Other seborrheic keratosis 06/08/2023 Paroxysmal atrial fibrillation ([facility]) 06/08/2023 Pure hypercholesterolemia 06/08/2023 Restless legs syndrome 06/08/2023 Transient cerebral ischemia 06/08/2023 Chronic obstructive pulmonary disease with (acute) exacerbation ([facility]) 03/12/2023 Osteoarthrosis, hand 10/15/2009 Bacterial overgrowth syndrome 05/17/2009 Abdominal pain, left lower quadrant 02/27/2009 Diarrhea 02/27/2009 Embolism and thrombosis ([facility]) 02/27/2009 Heartburn 02/27/2009 Loss of weight 02/27/2009 Nausea with vomiting 02/27/2009 Assessment and Plan Complete heart block Sinus bradycardia Hypothyroidism Aortic valve stenosis Anemia COPD Asthma Dementia Plan: Patient will be admitted to stepdown telemetry bed. Fall precautions. Will keep patient n.p.o. after midnight. Cardiology consult for pacemaker placement. So far, patient denies any symptoms that might be caused by bradycardia. Will treat bradycardia once patient becomes symptomatic. Echo tomorrow Protonix 40 mg p.o. daily for GI prophylaxis Patient's home medications were resumed EPC cuffs VTE Prophylaxis: Lovenox ----- Focus of this inpatient stay will remain on problems that need acute care setting for care. We will review available studies and will order additional labs, imaging and other studies as appropriate. As needed medicines are ordered as appropriate. VTE Prophylaxis will be ordered as appropriate. Please see above for management plan for individual hospital problems. Home medications are reviewed and will be continued as appropriate. Patient will be continued to be followed during this hospital stay by a member of [facility]. Past Medical History Past Medical History: Diagnosis Date Abnormal ECG Alzheimer disease (CMS/HCC) Asthma Atrial fibrillation (CMS/HCC) Bradycardia COPD (chronic obstructive pulmonary disease) (CMS/HCC) Dementia (CMS/HCC) Hypothyroidism RLS (restless legs syndrome) Past Surgical History Past Surgical History: Procedure Laterality Date ANKLE SURGERY APPENDECTOMY BACK SURGERY CATARACT EXTRACTION CHOLECYSTECTOMY FOOT SURGERY GASTRIC BYPASS HIP SURGERY HYSTERECTOMY MOUTH SURGERY TOE SURGERY TONSILLECTOMY Social History Social History Socioeconomic History Marital status: Spouse name: Not on file Number of children: Not on file Years of education: Not on file Highest education level: Not on file Occupational History Not on file Tobacco Use Smoking status: Never Passive exposure: Past Smokeless tobacco: Never Substance and Sexual Activity Alcohol use: Never Drug use: Never Sexual activity: Not on file Other Topics Concern Not on file Social History Narrative Not on file Social Determinants of Health Financial Resource Strain: Low Risk (04/01/2024) Overall Financial Resource Strain (CARDIA) Difficulty of Paying Living Expenses: Not hard at all Food Insecurity: No Food Insecurity (04/01/2024) Hunger Vital Sign Worried About Running Out of Food in the Last Year: Never true Ran Out of Food in the Last Year: Never true Transportation Needs: No Transportation Needs (04/01/2024) Transportation Lack of Transportation (Medical): No Lack of Transportation (Non-Medical): No Physical Activity: Not on file Stress: No Stress Concern Present (04/01/2024) [employer] [place] [employer] - Occupational Stress Questionnaire Feeling of Stress : Only a little Social Connections: Moderately Isolated (04/01/2024) Social Connection and Isolation Panel [NHANES] Frequency of Communication with Friends and Family: More than three times a week Frequency of Social Gatherings with Friends and Family: More than three times a week Attends Mandaeism Services: Never Active Member of Clubs or Organizations: No Attends Club or Organization Meetings: Never Marital Status: Intimate Partner Violence: Not At Risk (04/01/2024) Humiliation, Afraid, Rape, and Kick questionnaire Fear of Current or Ex-Partner: No Emotionally Abused: No Physically Abused: No Sexually Abused: No Housing Stability: Low Risk (04/01/2024) Housing Stability Vital Sign Unable to Pay for Housing in the Last Year: No Number of Places Lived in the Last Year: 1 Unstable Housing in the Last Year: No Family History family history includes No Known Problems in her father; Stroke in her mother; carotid artery stenosis in her mother. Allergies is allergic to psyllium. Prior to Admission Medications Medications Prior to Admission Medication Sig [...] 1,000 mcg 1 (one) time each day. Labs Labs Reviewed BASIC METABOLIC PANEL - Abnormal Result Value Sodium 135 (*) Potassium 4.3 Chloride 112 (*) CO2 18 (*) BUN 19 Creatinine 0.83 Glucose 91 Calcium 8.0 (*) Anion Gap 9 eGFR 69.0 BUN/Creatinine Ratio 22.9 PROTIME-INR - Abnormal Protime 15.0 (*) INR 1.18 (*) B-TYPE NATRIURETIC PEPTIDE - Abnormal BNP 566 (*) CBC WITH AUTO DIFFERENTIAL - Abnormal Auto WBC 4.03 RBC 3.17 (*) Hemoglobin 9.8 (*) Hematocrit 31.3 (*) MCV 98.7 (*) MCH 30.9 MCHC 31.3 (*) RDW 14.2 Neutrophils Relative 28.0 (*) Lymphocytes Relative 45.9 (*) Monocytes Relative 11.2 Eosinophils Relative 13.9 (*) Basophils Relative 1.0 Neutrophils Absolute 1.13 (*) Lymphocytes Absolute 1.85 Monocytes Absolute 0.45 Eosinophils Absolute 0.56 (*) Basophils Absolute 0.04 Platelets 177 nRBC % 0.0 Immature Granulocytes Relative 0.0 Immature Granulocytes Absolute 0.00 TSH3 REFLEX TO FT4 - Abnormal TSH 6.13 (*) TROPONIN I - Normal Troponin I 0.04 APTT - Normal aPTT 33.9 T4, FREE - Normal Free T4 0.77 CBC AND DIFFERENTIAL Narrative: The following orders were created for panel order CBC and differential. Procedure Abnormality Status --------- ------ CBC auto differential[[id number]] Abnormal Final result Please view results for these tests on the individual orders. Imaging Signed Camille Concepcion MD [facility] Medicine 04/01/2024 11:08 PM PROGRESS Observed: 04/01/2024 8:35 PM Status: COMPLETED Source: [facility] REPOSITORY 04/01/242033 Financial Resource Strain How hard is [...] have you lived? 1 (Lives at [facility] [place] [facility] hayden w/ ) In the last 12 months, was there a time when you did not have a steady place to sleep or slept in a senior living (including now)? N Transportation Needs In the [...] than 3 How often do you attend mandaeism or spiritism services? Never Do you belong to any clubs or organizations such as mandaeism groups, unions, fraternal or athletic groups, or [...] In the past 12 months has the [employer], gas, oil, or water company threatened to shut off services in your home? No 04/01/242034 Referral Data Referral Source rehabilitation worker Referral Reason Psychosocial assessment Patient Information Primary Caregiver Private caregiver Accompanied by/Relationship Daughter Alexia, Anay Activities of Daily Living Assistive Device Walker (uses sometimes) Living Arrangement (Current/Prior to Hospitalization) Private residence ([facility] w/ ) Ambulation Minimum assistance (uses walker sometimes) Dressing Independent Feeding Independent Behavior Oriented (A&Ox4) Communication Can write;Talks;Understands speaking;Understands Belgian;Reads Income Information Income Source Unemployed (Retired) Discharge Planning Support Systems Spouse/significant other;Children ( Anay; six daughters (Alexia, Kait, Donita, Jasmin, Doris, Savana); son Nestor) Type of Residence Private residence;Home care staff Will patient need Precert for Post Acute needs? No Patient's goal for discharge Return to [facility] with continued GLASS FINISHER Does the patient need discharge transport arranged? No Completed social work assessment and SDoH screening. Patient was A&Ox4 at this time. Patient's , Anay, and daughter, Alexia, were currently present at bedside. Patient reported that she lives at [facility] with her . Patient identified her support system as her (Anay), her six daughters (Alexia, Kait, Donita, Jasmin, Doris, and Savana), and her son (Nestor). Patient endorsed that she is moderately socially active. Patient reported that she needs assistance with bathing, which is provided by one of her daughters or by her GLASS FINISHER who visits 2x/week. Patient reported that she [...] any alcohol consumption or recreational drug use. APTT Collected: 04/01/2024 7:05 PM Status: UN K Source: [facility] REPOSITORY TYPE CODE TESTS RESULT OUT OF RANGE REFERENCE UNITS LAB [id number] ACTIVATED PARTIA L THROMBOPLASTIN TIME IN PPP BY COAGULATION ASSAY 33.9 25.0-35.0 Seconds Result Comment: Clinical sig nificance of the APTT is questionable in the presence of heparin. Performed By: #### [id number] ## ## [facility] (BEAKER) [address] [place] [address] PROTIME-INR Collected: 04/01/2024 7:05 PM Status: UN K Source: [facility] REPOSITORY TYPE CODE TESTS RESULT OUT OF RANGE REFERENCE UNITS LAB [id number] PROTHROMBIN TIME (PT) IN PPP BY COAGULATION ASSAY 15.0 High 12.3-14.8 Seconds LAB [id number] INR IN PPP BY COAGULATION ASSAY 1.18 High 0.90-1.10 NA Result Comment: ACC RECOMM ENDED INR FOR WARFARIN THERAPY CONDITION INR PROPHYLAXIS OF VENOUS THROMBOSIS 2-3 (HIGH-RISK SURGERY) TREATMENT OF VENOUS THROMBOSIS 2-3 TREATMENT OF PULMONARY EMBOLISM 2-3 PREVENTION OF SYSTEMIC EMBOLISM: 2-3 ACUTE MYOCARDIAL INFARCTION TISSUE HEART VALVES VALVULAR HEART DISEASE ATRIAL FIBRILLATION RECURRENT SYSTEMIC EMBOLISM MECHANICAL HEART VALVE 2.5-3.5 FROM: ORAL ANTICOAGULANTS. MECHANISM OF ACTION, CLINICAL EFFECTIVENESS, AND OPTIMAL THERAPEUTIC RANGE. CHEST 1995;108:231S-246S. Performed By: #### [id number] ## ## [facility] YazinoBEAKER) [address] [place] [address] TSH3 REFLEX TO FT4 Collected: 04/01/2024 7:05 PM Sta tus: UNK Source: [facility] REPOSITORY TYPE CODE TESTS RESULT OUT OF RANGE REFERENCE UNITS LAB [id number] THYROTROPIN (MIU/L) IN SER/PLAS BY DETECTION LIMIT <= 0.05 MIU/L 6.13 High 0.34-5.60 mIU/L Performed By: #### [id number] # ### [facility] ([facility]) [address] [place] [address] TROPONIN I Collected: 04/01/2024 7:05 PM Status: UN K Source: [facility] REPOSITORY TYPE CODE TESTS RESULT OUT OF RANGE REFERENCE UNITS LAB [id number] TROPONIN I.CARDIAC (NG/ML) IN SERUM OR PLASMA 0.04 0.00-0.04 ng/mL Performed By: #### [id number] ## ## [facility] ([facility]) [address] [place] [address] CBC WITH AUTO DIFFERENTIAL Collected: 04/01/2024 7:05 PM Status: UNK Source: [facility] REPOSITORY TYPE CODE TESTS RESULT OUT OF RANGE REFERENCE UNITS LAB [id number] LEUKOCYTES(10*3/ UL) IN BLOOD BY AUTOMATED COUNT 4.03 4.00-10.60 10*3/uL LAB [id number] ERYTHROCYTES (10*6/UL) IN BLOOD BY AUTOMATED COUNT 3.17 Low 3.80-5.00 10*6/uL LAB [id number] HEMOGLOBIN (G/DL) IN BLOOD 9.8 Low 12.0-15.0 g/dL LAB 9956305 HEMATOCRIT (%) IN BLOOD BY AUTOMATED COUNT 31.3 Low 36.0-48.0 % LAB 4340880 ERYTHROCYTE MEAN CORPUSCULAR VOLUME (FL) BY AUTOMATED COUNT 98.7 High 82.0-98.0 fL LAB 4126831 ERYTHROCYTE MEAN CORPUSCULAR HEMOGLOBIN (PG) BY AUTOMATED COUNT 30.9 27.0-33.0 pg LAB 4997585 ERYTHROCYTE MEAN CORPUSCULAR HEMOGLOBIN CONCENTRATION (G/DL) BY AUTOMATED 31.3 Low 32.0-35.0 g/dL LAB 2393242 ERYTHROCYTE DISTRIBUTION WIDTH (RATIO) BY AUTOMATED COUNT 14.2 11.5-15.0 % LAB [id number] NEUTROPHILS/100 LEUKOCYTES IN BLOOD BY AUTOMATED COUNT 28.0 Low 40.0-72.0 % LAB 8288263 LYMPHOCYTES/100 LEUKOCYTES IN BLOOD BY AUTOMATED COUNT 45.9 High 20.0-45.0 % LAB 1263462 MONOCYTES/100 LEUKOCYTES IN BLOOD BY AUTOMATED COUNT 11.2 5.0-12.0 % LAB [id number] EOSINOPHILS/100 LEUKOCYTES IN BLOOD BY AUTOMATED COUNT 13.9 High 0.0-6.0 % LAB 6134609 BASOPHILS/100 LEUKOCYTES IN BLOOD BY AUTOMATED COUNT 1.0 0.0-1.0 % LAB 6862143 NEUTROPHILS (10*3/UL) IN BLOOD BY AUTOMATED COUNT 1.13 Low 1.60-7.60 10*3/uL LAB 8792530 LYMPHOCYTES (10*3/UL) IN BLOOD BY AUTOMATED COUNT 1.85 1.20-4.00 10*3/uL LAB [id number] MONOCYTES (10*3/UL) IN BLOOD BY AUTOMATED COUNT 0.45 0.10-1.00 10*3/uL LAB [id number] EOSINOPHILS (10*3/UL) IN BLOOD BY AUTOMATED COUNT 0.56 High 0.00-0.50 10*3/uL LAB 1434254 BASOPHILS (10*3/UL) IN BLOOD BY AUTOMATED COUNT 0.04 0.00-0.20 10*3/uL LAB 7268649 PLATELETS (10*3/UL) IN BLOOD AUTOMATED COUNT 177 150-400 10*3/uL LAB 254 NRBC (PER 100 WBCS) BY AUTOMATED COUNT 0.0 0 % LAB 1767 IMMATURE GRANULOCYTES/100 LEUKOCYTES IN BLOOD BY AUTOMATED COUNT 0.0 0.0-1.0 % LAB 1768 IMMATURE GRANULOCYTES (10*3/UL) IN BLOOD BY AUTOMATED COUNT 0.00 0.00-0.20 10*3/uL Performed By: #### [id number] # ### [facility] (BEAKER) [address] [place] [address] T4, FREE Collected: 04/01/2024 7:05 PM Status: UN K Source: [facility] REPOSITORY TYPE CODE TESTS RESULT OUT OF RANGE REFERENCE UNITS LAB [id number] THYROXINE (T4) FREE (NG/DL) IN SER/PLAS 0.77 0.71-1.85 ng/dL Performed By: #### [id number] ## ## [facility] (BEAKER) [address] [place] [address] BASIC METABOLIC PANEL Collected: 2023 7:05 PM Status: UNK Source: [facility] REPOSITORY TYPE CODE TESTS RESULT OUT OF RANGE REFERENCE UNITS LAB [id number] SODIUM (MMOL/L) IN SER/PLAS 135 Low 136-145 mmol/L LAB 9882925 POTASSIUM (MMOL/L) IN SER/PLAS 4.3 3.5-5.1 mmol/L LAB 7342442 CHLORIDE (MMOL/L) IN SER/PLAS 112 High 98-107 mmol/L LAB 2265836 CARBON DIOXIDE, TOTAL (MMOL/L) IN SER/PLAS 18 Low 21-31 mmol/L LAB 1965094 UREA NITROGEN (MG/DL) IN SER/PLAS 19 7-25 mg/dL LAB 5598618 CREATININE (MG/DL) IN SER/PLAS 0.83 0.60-1.20 mg/dL LAB 1448664 GLUCOSE (MG/DL) IN SER/PLAS 91 70-100 mg/dL LAB 9740827 CALCIUM (MG/DL) IN SER/PLAS 8.0 Low 8.6-10.3 mg/dL LAB 3102587 ANION GAP IN SER/PLAS 9 7-20 mmol/L LAB 2532117 GLOMERULAR FILTRATION RATE ML/MIN/1.73 SQ M.PREDICTED 69.0 >60.0 mL/min/ 1.73m*2 Result Comment: [facility]???s estimated glomerular filtration rate (eGFR) will [...] disproportionately affect any one group of individuals. LAB 9340123 UREA NITROGEN/CREA TININE (MASS RATIO) IN SER/PLAS 22.9 NA Performed By: #### [id number] ### # [facility] (BEAKER) [address] [place] [address] B-TYPE NATRIURETIC PEPTIDE Collected: 04/01/2024 7:05 PM Status: UNK Source: [facility] REPOSITORY TYPE CODE TESTS RESULT OUT OF RANGE REFERENCE UNITS LAB 4678800 NATRIURETIC PEPTIDE B (PG/ML) IN SER/PLAS 566 High 0-100 pg/mL Performed By: #### [id number] ## ## [facility] (JOSTIN) [place] [address] EDPROV Observed: 04/01/2024 6:58 PM Status: COMPLETED Source: [facility] REPOSITORY Attestation signed by Felicia Medina DO at 04/02/2024 3:16 PM 2022 Emergency Medicine Coding Guide from [email or web address] on 04/02/2024 All calculations should be rechecked [...] Patient presents with Bradycardia Pt sent by [facility] for bradycardia. Pt c/o occasional SOB but denies being symptomatic otherwise. HPI 83-year-old female with history of Alzheimer disease, asthma, A-fib, COPD, and hypothyroidism presenting due to concerns of third-degree heart block. Patient evaluated at shellfish farming supervisor office today after patient was found to [...] Dementia (CMS/HCC) Hypothyroidism RLS (restless legs syndrome) Past Surgical [...] MDM ED Course as of 04/01/242002Apr 01, 20241902 ECG findings Time: 1843 Rate: 36 Rhythm: 3rd degree block [place]: LAD QRS: 142 [place]: n/a Qtc: 411 Other findings: TWI in V3 [TS] ED Course User Index [TS] Felicia Medina, Diagnoses as of 04/01/242002 Third degree heart block (CMS/HCC) Medical Decision Making Reviewed patient's chart and patient evaluated at shellfish farming supervisor office and concern for third-degree AV block. On arrival patient bradycardic otherwise vital signs stable within normal limits. On exam patient bradycardic otherwise exam is unremarkable. Differential includes but not limited to third-degree AV block, medication side effect, electrolyte abnormality. Will do lab workup, EKG, and chest x-ray. EKG consistent with third-degree heart block. Discussed with cardiology who recommends admission and patient will need pacemaker placement. Discussed with hospitalist who accepts patient for admission. Cardiology does not recommend any pacing or medications at this time. Shared decision making patient agreeable with plan and admission. Umu Silva (-clay), documented on behalf of Dr. Medina on 04/01/24 at 18:40. Salome Dominguez is a 83 y.o. female presenting to the ED with chief complaint of bradycardia. Dr. Medina is worried about a 3rd degree heart block. Pt denies feeling chest pain or SOB. Pt reports feeling fatigued but pt's family reports this is normal. Dr. Medina reports the plan is to admit pt and get a pacemaker. Dr. Medina personally saw and evaluated the patient. Dr. Medina discussed the management with the resident, Dr. Dhillon. Dr. Medina reviewed the resident's note and agrees with the documentation. Dr. Medina performed the substantive portion of the Physical exam. Attestation: I performed a history and physical exam on this patient and discussed his or her management with the resident. I reviewed the resident's note and agree with the documented findings and plan of care with the following exceptions: None Provider Statement NINOSKA: Provider Statement 2nd Scribe. By electronically signing this emergency patient record, the Emergency Physician/WEDGER AND GLUER/PA-C attests that all entries made into the electronic medical record by the scribe prior to the Physician/WEDGER AND GLUER/PA-C signature reflect an accurate accounting of the evaluation and care rendered by that Emergency Physician/WEDGER AND GLUER/PA-C. The Emergency Physician/WEDGER AND GLUER/PA-C assumes full responsibility for those entries. The Emergency Physician/WEDGER AND GLUER/PA-C also attests that any patient testing or treatment that was instituted by nursing staff. Ronnell Dhillon DO Resident 04/01/242036 OFFICE VISIT Observed: 04/01/2024 1:40 PM Status: COMPLETED Source: [facility] REPOSITORY [id number] Salome Dominguez F Date Provider Department Center 04/01/2024 [id number] TREVIÑO [facility] Family History Problem Relation Age of Onset Stroke Mother Other Mother No Known Problems Father Family Status - Relation Status Age at Mother Father Level of Service:[address] [place] OFFICE/OUTPATIENT NEW MODERATE MDM 45 MINUTES PROGRESS Observed: 04/01/2024 1:40 PM Status: COMPLETED Source: [facility] REPOSITORY [facility] Office Cardiology Clinic Note Reason for cardiology consult: New patient here to establish care. Ref from Juana Mcdaniels CNP with neurology for bradycardia. Chief Complaint: Weakness HPI: Salome Dominguez is a 83 y.o. female with a [...] medical history of Abnormal ECG, Alzheimer disease ([facility]), Asthma, Atrial fibrillation ([facility]), Bradycardia, COPD (chronic obstructive pulmonary disease) ([facility]), Dementia ([facility]), Hypothyroidism, and RLS (restless legs syndrome). Surgical [...] mood, affect, and judgement. Labs: 12/23/2023 at [facility] TSH 9.379., White blood count 4.6, [...] 49 bpm with first-degree AV block, left anterior fascicular block and right bundle branch block Chest x-ray 02/11/2024 Stress echo 07/02/2009 at [facility] Assessment and Plan: Bradycardia, EKG today showed complete heart block with junctional escape rhythm, in addition the patient has underlying left anterior fascicular block and right bundle branch block. She has generalized weakness which is related to above and probably due to untreated hypothyroidism Cardiac murmur suggestive of aortic stenosis Recent elevation of BNP. Etiology is not clear. On exam the patient does not seem to be in heart failure. Could be due to significant aortic stenosis or presence of pulmonary hypertension Remote history of paroxysmal atrial fibrillation, currently in sinus rhythm Hypothyroidism diagnosed recently in January 2024 but the patient is not taking her medications due to dementia Unstable gait and history of falls Dementia History of longstanding asthma Plan: Will send patient to [facility] emergency room to be admitted. She is currently hemodynamically stable and her daughter will take her. I already contacted Dr. Richards that the patient will need a pacemaker. Also I contacted the emergency room physician She needs to check TSH and treat hypothyroidism adequately although I do not think that will resolve the complete heart block Echo to evaluate aortic stenosis and also presence of pulmonary hypertension Padmini Treviño MD, [facility] ALLERGIES DATE TYPE / CODE NAME / CODE REACTION SEVERITY SOURCE 02/22/2009 DRUG INGREDI/[id number] 03(SNOMED CT) PSYLLIUM Anaphylaxis~Rash~U nknown [facility] ENCOUNTERS ADMIT/DISCHARGE ACCOUNT NUMBER ADMITTING ENCOUNTER CLASS LOCATION SOURCE 04/11/2024/04/11/20 24 [id number] Ambulatory Building: B [facility] 04/05/2024 [id number] Inpatient Encounter Building:[facility] 04/04/2024 [id number] Inpatient Encounter Building:[facility] 04/04/2024 [id number] Inpatient Encounter Building:[facility] 04/01/2024 [id number] Emergency Building:[facility] 04/01/2024 [id number] Emergency Building:[facility] 04/01/2024/04/05/20 24 [id number] OR[place]O PACHECO Inpatient Encounter Building: [place]: 3133Bed: 3133-01 [facility] 04/01/2024/04/01/20 24 [id number] Ambulatory Building:CC B [facility] 03/30/2024/03/30/20 24 [id number] Ambulatory Building:NO [place] CI AUD [facility] 03/22/2024/03/22/20 24 [id number] Ambulatory Building:BS R NEURO [facility] 03/16/2024/03/17/20 24 [id number] Ambulatory Building:NO [place] CI AUD [facility] 12/31/2023/12/31/19 24 [id number] Ambulatory Building:NO MS SWS POD [facility] 11/18/2023/11/18/19 24 [id number] Ambulatory Building:NO MS CI AUD [facility] 10/12/2023/10/12/19 24 [id number] Ambulatory Building:CI ENT [facility] 10/01/2023/10/01/19 24 [id number] Ambulatory Building:NO MS SWS POD [facility] EPIC PAYERS ENCOUNTER GUARANTOR PAYER SUBSCRIBER SOURCE 04/11/2024 Primary Insurance:MEDICAREPo licy Number: [id number] Date:9466-40-80Wawq Name:Medicare DIANNE L STEVENSDOB: [id number] [place] [address] [facility] 04/11/2024 Secondary Insurance:GENERIC OTHERPolicy Number: [id number] e Date:2023-09-28 SALOME AYALA: [id number] [place] [address] [facility] 04/05/2024 Primary Insurance:MEDICAREPo licy Number: [id number] Date:8902-78-08Hygh Name:Medicare DIANNE Jose AYALA: [id number] [place] [address] [facility] 04/05/2024 Secondary Insurance:GENERIC OTHERPolicy Number: [id number] e Date:2023-09-28 SALOME ISLASB: [id number] [place] [address] [facility] 04/04/2024 Primary Insurance:MEDICAREPo licy Number: [id number] Date:7767-65-58Lycy Name:Medicare SALOME ISLASB: [id number] [place] [address] [facility] 04/04/2024 Secondary Insurance:GENERIC OTHERPolicy Number: [id number] e Date:2023-09-28 SALOME ISLASB: [id number] [place] [address] [facility] 04/04/2024 Primary Insurance:MEDICAREPo licy Number: [id number] Date:7317-79-64Fwxz Name:Medicare SALOME ISLASB: [id number] [place] [address] [facility] 04/04/2024 Secondary Insurance:GENERIC OTHERPolicy Number: [id number] e Date: SALOME ISLASLatrice: [id number] [place] [address] [facility] 04/01/2024 Primary Insurance:MEDICAREPo licy Number: [id number] Date:0324-16-95Icil Name:Medicare SALOME ISLASB: [id number] [place] [address] [facility] 04/01/2024 Secondary Insurance:GENERIC OTHERPolicy Number: [id number] e Date: SALOME ISLASLatrice: [id number] [place] [address] [facility] 04/01/2024 Primary Insurance:MEDICAREPo licy Number: [id number] Date:1971-82-36Atmu Name:Medicare SALOME DOMINGUEZB: [id number] [place] [address] [facility] 04/01/2024 Secondary Insurance:GENERIC OTHERPolicy Number: [id number] e Date: SALOME ISLASB: [id number] [place] [address] [facility] 04/01/2024 Primary Insurance:MEDICAREPo licy Number: [id number] Date:4038-62-14Oary Name:Medicare SALOME AYALA: [id number] [place] [address] [facility] 04/01/2024 Secondary Insurance:GENERIC OTHERPolicy Number: [id number] e Date:2023-09-28 SALOME ISLASB: [id number] [place] [address] [facility] 04/01/2024 Primary Insurance:MEDICAREPo licy Number: [id number] Date:2696-80-50Ahen Name:Medicare SLAOME AYALA: [id number] [place] [address] [facility] 04/01/2024 Secondary Insurance:GENERIC OTHERPolicy Number: [id number] e Date: SALOME AYALA: [id number] [place] [address] [facility] 03/30/2024 SALOME AYALA: [place] [address]Riv: () Primary Insurance:MEDICAREPo licy Number: [id number] Date:0934-99-61Wowg Name:Medicare SALOME ISLASB: [id number] [place] [address] [facility] 03/30/2024 Secondary Insurance:MEDICAL MUTUALPolicy Number: [id number] e Date:2021-09-28 SALOME ISLASB: [id number] [place] [address] [facility] 03/30/2024 Tertiary Insurance:MEDICOPoli cy Number: [id number] Date:2014-10-29 SALOME DOMINGUEZB: [id number] [place] [address] [facility] 03/22/2024 SALOME DOMINGUEZB: [place] [address]Dsm: (HP) Primary Insurance:MEDICAREPo licy Number: [id number] Date:1513-39-89Ufhi Name:Medicare SALOME DOMINGUEZB: [id number] [place], [facility] [facility] 03/22/2024 Secondary Insurance:MEDICAL MUTUALPolicy Number: [id number] e Date:2021-09-28 SALOME ISLASB: [id number] [place], [facility] [facility] 03/22/2024 Tertiary Insurance:MEDICOPoli cy Number: [id number] Date:2014-10-29 SALOME DOMINGUEZB: [id number] [place] [address] [facility] 03/16/2024 SALOME DOMINGUEZB: [place] [address]Zch: (HP) Primary Insurance:MEDICAREPo licy Number: [id number] Date:7830-35-33Buda Name:Medicare SALOME DOMINGUEZB: [id number] [place] [address] [facility] 03/16/2024 Secondary Insurance:MEDICAL MUTUALPolicy Number: [id number] e Date:2021-09-28 SALOME ISLASLatrice: [id number] [place] [address] [facility] 03/16/2024 Tertiary Insurance:MEDICOPoli cy Number: [id number] Date:2014-10-29 SALOME DOMINGUEZB: [id number] [place] [address] [facility] EP[facility] 12/31/2023 SALOME PROCTORYANIB: [place], [facility]Wrf: (HP) Primary Insurance:MEDICAREPo licy Number: [id number] Date:5826-55-08Esvo Name:Medicare SALOME DOMINGUEZB: [id number] [place] [address] [facility] 12/31/2023 Secondary Insurance:MEDICAL MUTUALPolicy Number: [id number] e Date:2021-09-28 SALOME ISLASLatrice: [id number] [address], [facility] [facility] 12/31/2023 Tertiary Insurance:MEDICOPoli cy Number: [id number] Date:2014-10-29 SALOME DOMINGUEZLINH: [id number] [place] [address] [facility] 11/18/2023 SALOME DOMINGUEZLINH: [place] [address]Eit: (HP) Primary Insurance:MEDICAREPo licy Number: [id number] Date:3427-68-95Yige Name:Medicare SALOME DOMINGUEZB: [id number] [place] [address] [facility] 11/18/2023 Secondary Insurance:MEDICAL MUTUALPolicy Number: [id number] e Date:2021-09-28 SALOME DOMINGUEZLINH: [id number] [place] [address] [facility] 10/12/2023 SALOME PROCTOREMILY: [place] [address]Ofp: (HP) Primary Insurance:MEDICAREPo licy Number: [id number] Date:5766-21-69Lfgx Name:Medicare DIANNE L STEVENSDOB: [id number] [place] [address] [facility] 10/12/2023 Secondary Insurance:MEDICAL MUTUALPolicy Number: [id number] e Date:2021-09-28 SALOME DOMINGUEZLINH: [id number] [place] [address] [facility] EP[facility] 10/01/2023 SALOME Garcia JAMIE: [place] [address]Zvp: () Primary Insurance:MEDICAREPo licy Number: [id number] Date:2498-88-76Uqon Name:Medicare SALOME DOMINGUEZLINH: [id number] [place] [address] [facility] 10/01/2023 Secondary Insurance:MEDICAL MUTUALPolicy Number: [id number] e Date:2021-09-28 SALOME PROCTOREMILY: [id number] [place] [address] [facility] EP[facility]
[2024-05-11] MEDS: METHYLPREDNISOLONE SOD SUCC PF 40 MG/ML VIAL IVP ×3 (06:01→17:51)
[2024-05-11] MEDS: LEVOTHYROXINE SODIUM 75 MCG TABLET PO (06:01)
[2024-05-11 07:06] LABS: Hematocrit 33.1 % (36.0-48.0); Hemoglobin 10.3 g/dL (12.0-16.0); Mean Corpuscular HGB Conc 31.1 g/dL (29.9-35.2); Mean Corpuscular Hemoglobin 30.7 pg (26.7-34.0); Mean Corpuscular Volume 98.5 fL (81.0-99.0); Mean Platelet Volume 9.5 fL (9.5-13.5); Platelet Count 215 10^3/uL (150-450); Red Blood Count 3.36 10^6/uL (4.20-5.40); Red Cell Distribution Width 15.9 % (11.0-15.0); White Blood Count 2.4 10^3/uL (4.0-11.0)
[2024-05-11 07:22] LABS: Alanine Aminotransferase 16 U/L (14-59); Albumin Globulin Ratio 0.9; Albumin Level 2.8 g/dL (3.4-5.0); Alkaline Phosphatase 76 U/L (46-116); Aspartate Amino Transferase 18 U/L (15-37); BUN Creatinine Ratio 32.9; Bilirubin Total 0.3 mg/dL (0.2-1.0); Chloride 108 mmol/L (98-107); Estimated GFR (African America >60 (>=60); Estimated GFR (Non-African Ame >60 (>=60); Glucose 154 mg/dL (74-106); Phosphorus 4.7 mg/dL (2.6-4.7); Potassium 3.7 mmol/L (3.5-5.1); Sodium 138 mmol/L (136-145); Total Protein 5.8 g/dL (6.4-8.2)
[2024-05-11 07:31] LABS: Anion Gap 16.7
[2024-05-11 08:20] LABS: Basophils Abs Manual 0.02 10^3/uL (0.00-0.10); Lymphocytes Absolute Manual 0.57 10^3/uL (1.20-3.80)
--- NOTE | 2024-05-11 08:57 | CM.NOTE ---
Rounds made with Dr. Baltazar. Dr. Baltazar discussed test results and need for repeat ABD xrays. Discussed need to keep NPO until know xray results. Will order PT/OT to determine any possible needs & for discharge planning. No discharge planned for today.
--- NOTE | 2024-05-11 09:06 | P.HP_ITS ---
HPI H&P: HPI History of Present Illness Chief complaint: SOB COPD UTI FAILURE TO THRIVE Narrative: Patient was seen and evaluated emergency room and increasing cough and shortness of breath. Found to have acute UTI, sinus tachycardia, hypotension, ileus versus small bowel obstruction due to severe sepsis. I saw patient up on the medical surgical floor, she was sleepy but aroused easily. Hard of hearing. Does admit to some mild abdominal pain. And just a generalized feeling of weakness and increasing cough. But not having sputum production. Opioid HPI Opioid Management Most Recent Pain and Opioid Data: Last Pain Scale 0 05/11/24 10:03 Last Pain Assessment 05/11/24 10:03 Last ORT Total Score 0 05/11/24 00:37 Last ORT Risk Category Low Risk 05/11/24 00:37 PFSH PFS Medical History (Updated 05/11/24 @ 00:41 by Sammie Roberts MD) Pacemaker ?Z95.0 - Presence of cardiac pacemaker (ICD-10) Asthma ?J45.909 - Unspecified asthma, uncomplicated (ICD-10) Surgical History (Updated 05/11/24 @ 00:44 by Rosalba Colón) History of cholecystectomy ?Z90.49 - Acquired absence of other specified parts of digestive tract (ICD- 10) History of hysterectomy ?Z90.710 - Acquired absence of both cervix and uterus (ICD-10) History of appendectomy ?Z90.49 - Acquired absence of other specified parts of digestive tract (ICD- 10) Social History (Updated 05/11/24 @ 00:39 by Rosalba Colón) Within the past year, how often did you have a drink containing alcohol: monthly or less Within the past year, how many standard drinks containing alcohol did you have on a typical day: 1 or 2 Within the past year, how often did you have six or more drinks on one occasion: never Total score: 0 Score interpretation: A score less than 3 is consistent with normal alcohol consumption. Smoking status: Never smoker Non-prescribed substance use: denies use Previous occupational history: retired Highest level of school completed/degree received: Associate degree: occupational, technical, vocational program Are you now , , , , never or living with a partner: Little interest or pleasure in doing things: not at all Feeling down, depressed, or hopeless: not at all Feel stressed/tense/nervous/anxious/difficulty sleeping: not at all Do you think of yourself as: straight/heterosexual Gender Identity: female Meds Home Medications and Allergies Home Medications ?Medication ?Instructions ?Recorded ?Confirmed ?Type albuterol sulfate 90 mcg/actuation 2 puff inhalation DAILY 02/11/24 05/11/24 History aerosol inhaler levothyroxine 75 mcg tablet 75 mcg PO DAILY 02/11/24 05/11/24 History metoprolol succinate 25 mg 12.5 mg PO DAILY 05/11/24 05/11/24 History tablet,extended release 24 hr Allergies Allergy/AdvReac Type Severity Reaction Status Date / Time psyllium [From Metamucil] Allergy Severe Hives Verified 09/22/23 16:18 Exam Narrative Exam Narrative: Gen.: Awake, alert, in no distress Head: Normocephalic, atraumatic ENT: Moist mucous membranes Respiratory: No respiratory distress, Expiratory wheezing in the left upper lobe Cardio: Regular rate and rhythm Extremities: Moves extremities equally, no pedal edema Psych: Normal mood and affect Neuro: No focal neuro deficit Skin: Warm, dry, intact Constitutional Vital Signs, click to edit/add: Last Vital Signs Temp 97.9 F 05/11/24 07:48 Pulse 90 05/11/24 08:00 Resp 16 05/11/24 07:48 BP 110/68 05/11/24 07:48 Pulse Ox 94 L 05/11/24 07:48 O2 Del Method Room Air 05/11/24 07:48 Documenting provider has reviewed patient's vital signs: yes Common normals: apparent distress (Lethargic) Chest Common normals: inspection of chest normal Respiratory Common normals: no use of accessory muscles; abnormal respiratory effort (Mild cough throughout the evaluation) Auscultation: rhonchi and diminished lung sounds; no rales Cardio Common normals: regular rate and regular rhythm GI Common normals: Normal to inspection, nondistended, normoactive bowel sounds present and soft to palpation; tender (Mild diffuse tenderness.) Extremity Common normals: normal to inspection and no clubbing, cyanosis or edema Results Labs Labs: Short CBC 05/10/24 05/11/24 Range/Units 20:02 06:46 WBC 6.3 2.4 L (4.0-11.0) 10^3/uL Hgb 11.7 L 10.3 L (12.0-16.0) g/dL Hct 36.6 33.1 L (36.0-48.0) % Plt Count 260 215 (150-450) 10^3/uL BMP 05/10/24 05/11/24 20:02 06:46 Sodium 138 138 Potassium 4.4 3.7 Chloride 106 108 H Carbon Dioxide 20.0 L 17.0 L BUN 27.0 H 26.0 H Creatinine 0.94 0.79 Glucose 82 154 H Calcium 8.1 L 8.0 L Liver Function 05/10/24 05/11/24 Range/Units 20:02 06:46 Total Bilirubin 0.3 0.3 (0.2-1.0) mg/dL AST 21 18 (15-37) U/L ALT 20 16 (14-59) U/L Alkaline Phosphatase 87 76 (46-116) U/L Albumin 3.2 L 2.8 L (3.4-5.0) g/dL Urine 05/10/24 Range/Units 20:50 Urine Color Lt. yellow (YELLOW) Urine Clarity Clear (CLEAR) Urine pH 6.0 (5.0-9.0) Ur Specific [place] 1.020 (1.005-1.025) Urine Protein Negative (NEG/TRACE) mg/dL Urine Glucose (UA) Negative (NEGATIVE) mg/dL Assessment and Plan Assessment and Plan (1) Acute UTI: (2) Adult failure to thrive: (3) COPD (chronic obstructive pulmonary disease): (4) Shortness of breath: (5) COPD exacerbation: Plan Admission findings: Sinus tachycardia, respiratory distress, hypotension, normal white blood cell count on admission but with a significant left shift, follow-up CBC with a significantly diminished white blood cell count. Neutropenia. Positive urinalysis. CT scan with possible ileus versus bowel obstruction but patient without emesis ileus most likely. This is resulted in severe sepsis. Acute UTI resulting in ileus resulting in severe sepsis with significant neutropenia. IV antibiotics. Check acute abdominal series for the ileus. Doubt bowel obstruction as patient had no emesis. Maintain n.p.o. status pending results of acute abdominal series Iron deficiency anemia-monitor daily Elevated BNP in the patient without significant peripheral edema or lung findings consistent with heart failure, check echocardiogram, likely related to BNP elevation due to severe sepsis. Monitor daily Acute exacerbation of COPD-steroids, aerosols, antibiotics Hypertension by history-monitor daily holding medications currently as patient is hypotensive Hypothyroidism-check levels Rehab: Patient good rehab candidate once cleared from her COPD and severe sepsis due to acute UTI with ileus. Admission status: Patient with a acute UTI and acute exacerbation of COPD resulting in severe sepsis with ileus. Medically necessary treatment will span 2 midnights. Inpatient status.
--- NOTE | 2024-05-11 09:06 | P.HP_ITS ---
HPI H&P: HPI History of Present Illness Chief complaint: SOB COPD UTI FAILURE TO THRIVE Opioid HPI Opioid Management Most Recent Pain and Opioid Data: Last Pain Scale 0 05/11/24 07:48 Last Pain Assessment 05/11/24 08:14 Last ORT Total Score 0 05/11/24 00:37 Last ORT Risk Category Low Risk 05/11/24 00:37 PFSH PFSH Medical History (Updated 05/11/24 @ 00:41 by Sammie Roberts MD) Pacemaker ?Z95.0 - Presence of cardiac pacemaker (ICD-10) Asthma ?J45.909 - Unspecified asthma, uncomplicated (ICD-10) Surgical History (Updated 05/11/24 @ 00:44 by Rosalba Colón) History of cholecystectomy ?Z90.49 - Acquired absence of other specified parts of digestive tract (ICD- 10) History of hysterectomy ?Z90.710 - Acquired absence of both cervix and uterus (ICD-10) History of appendectomy ?Z90.49 - Acquired absence of other specified parts of digestive tract (ICD- 10) Social History (Updated 05/11/24 @ 00:39 by Rosalba Colón) Within the past year, how often did you have a drink containing alcohol: monthly or less Within the past year, how many standard drinks containing alcohol did you have on a typical day: 1 or 2 Within the past year, how often did you have six or more drinks on one occasion: never Total score: 0 Score interpretation: A score less than 3 is consistent with normal alcohol consumption. Smoking status: Never smoker Non-prescribed substance use: denies use Previous occupational history: retired Highest level of school completed/degree received: Associate degree: occupat ional, technical, vocational program Are you now , , , , never or living with a partner: Little interest or pleasure in doing things: not at all Feeling down, depressed, or hopeless: not at all Feel stressed/tense/nervous/anxious/difficulty sleeping: not at all Do you think of yourself as: straight/heterosexual Gender Identity: female Meds Home Medications and Allergies Home Medications ?Medication ?Instructions ?Recorded ?Confirmed ?Type albuterol sulfate 90 mcg/actuation 2 puff inhalation DAILY 02/11/24 05/11/24 History aerosol inhaler levothyroxine 75 mcg tablet 75 mcg PO DAILY 02/11/24 05/11/24 History metoprolol succinate 25 mg 12.5 mg PO DAILY 05/11/24 05/11/24 History tablet,extended release 24 hr Allergies Allergy/AdvReac Type Severity Reaction Status Date / Time psyllium [From Metamucil] Allergy Severe Hives Verified 09/22/23 16:18 Exam Constitutional Vital Signs, click to edit/add: Last Vital Signs Temp 97.9 F 05/11/24 07:48 Pulse 90 05/11/24 08:00 Resp 16 05/11/24 07:48 BP 110/68 05/11/24 07:48 Pulse Ox 94 L 05/11/24 07:48 O2 Del Method Room Air 05/11/24 07:48 Results Labs Labs: Short CBC 05/10/24 05/11/24 Range/Units 20:02 06:46 WBC 6.3 2.4 L (4.0-11.0) 10^3/uL Hgb 11.7 L 10.3 L (12.0-16.0) g/dL Hct 36.6 33.1 L (36.0-48.0) % Plt Count 260 215 (150-450) 10^3/uL BMP 05/10/24 05/11/24 20:02 06:46 Sodium 138 138 Potassium 4.4 3.7 Chloride 106 108 H Carbon Dioxide 20.0 L 17.0 L BUN 27.0 H 26.0 H Creatinine 0.94 0.79 Glucose 82 154 H Calcium 8.1 L 8.0 L Liver Function 05/10/24 05/11/24 Range/Units 20:02 06:46 Total Bilirubin 0.3 0.3 (0.2-1.0) mg/dL AST 21 18 (15-37) U/L ALT 20 16 (14-59) U/L Alkaline Phosphatase 87 76 (46-116) U/L Albumin 3.2 L 2.8 L (3.4-5.0) g/dL Urine 05/10/24 Range/Units 20:50 Urine Color Lt. yellow (YELLOW) Urine Clarity Clear (CLEAR) Urine pH 6.0 (5.0-9.0) Ur Specific [place] 1.020 (1.005-1.025) Urine Protein Negative (NEG/TRACE) mg/dL Urine Glucose (UA) Negative (NEGATIVE) mg/dL
[2024-05-11] MEDS: [UNRECOGNIZED DRUG - OTHER] 1 CAP PO ×3 (09:08→21:19)
--- NOTE | 2024-05-11 09:27 | SWNOTE1 ---
SW consulted for possible need for SNF. Pt is a precert.
[2024-05-11] MEDS: LACTATED RINGER'S SOLUTION 1,000 ML 100 ML IV (09:48)
[2024-05-11] MEDS: PIPERACILLIN SODIUM/TAZOBACTAM 3.375 GM in 0.9 % SODIUM CHLORIDE 50 ML IV ×2 (09:48→17:52)
[2024-05-11] MEDS: PANTOPRAZOLE SODIUM 40 MG VIAL IV (09:48)
[2024-05-11] MEDS: ALBUTEROL SULFATE 2.5 MG/3 ML VIAL NEB IH (09:48)
[2024-05-11 09:51] LABS: Thyroid Stimulating Hormone 2.553 uIU/mL (0.358-3.740)
--- NOTE | 2024-05-11 10:08 | CA_ITS ---
Patient Name: CECELIA VILLALPANDO MR#: [id number] : 1940 Exam Date: 05/11/2024 Ordering Doctor: DR EMILIA JACKSON . ECHOCARDIOGRAM REPORT PROCEDURE: CA ECHO DOPPLER COMPLETE INDICATIONS: elevated bnp, COPD, Failure to thrive COMPARISON: None. DESCRIPTION: COMPLETE ECHOCARDIOGRAM Real-time transthoracic echocardiography with 2D, M-mode, spectral and color flow Doppler performed. QUALITY: Technical quality was good. LEFT VENTRICLE: Normal chamber size. Normal left ventricular wall thickness. LV EF: Global left ventricular systolic function is normal. Visual estimation of left ventricular ejection fraction is 60-65%. Abnormal septal motion likely due to paced rhythm. DIASTOLIC: Not adequately assessed due to heart rhythm. ATRIAL SEPTUM: Inadequately seen. LEFT ATRIUM: Normal chamber size. RIGHT ATRIUM: Normal chamber size. RIGHT VENTRICLE: Normal chamber size. Normal right ventricular systolic function. Pacer wire present. TRICUSPID VALVE: Normal mobility and thickness. Mild to moderate regurgitation. No evidence of pulmonary hypertension. RVSP 28mmHg MITRAL VALVE: Normal mobility and thickness. No evidence of mitral valve stenosis. Mild mitral annular calcification. Calcification of the mitral chordal apparatus and papillary muscle. Mild to moderate mitral regurgitation. AORTIC VALVE: Normal trileaflet appearance. Severely calcified aortic valve. Doppler velocity suggests mild to moderate aortic valve stenosis. DVI 0.29, Vmax 2.4m/s, Mean gradient 11mmHg. aortic valve area appears to be erroneous based on velocities, gradients and DVI. Trivial aortic regurgitation. AORTIC ROOT: Normal diameter and appearance. PULMONIC VALVE: Grossly normal. Trivial regurgitation. PERICARDIUM: Anterior free space; trivial effusion versus fat pad. IVC: Collapses with inspirations. Normal size. CONCLUSION: 1. Global left ventricular systolic function is normal; visually estimated ejection fraction is 60 to 65% 2. Normal right ventricular size and systolic function 3. The left atrium is normal in size 4. Mild to moderate tricuspid regurgitation 5. Mild to moderate mitral regurgitation 6. Mild to moderate aortic valve stenosis 7. Anterior free space; trivial effusion versus fat pad Adult Echocardiography Procedure Report Left Ventricle LVEDD (3.7 - 5.6 cm): 3.48 cm LVESD (2.2 - 4.0 cm): 2.63 cm LVIVS thickness (0.6 - 1.2 cm): 1.12 cm LVPW thickness (0.5 - 1.0 cm): 0.75 cm e': 0.10 m/s E - e': 12.47 LVOT Max Gradient: 1.84 mm[Hg], 1.93 mm[Hg], 1.73 mm[Hg] LVOT Area (cm2): 0.68 m/s Peak Velocity (LVOT): 0.68 m/s, 0.70 m/s, 0.66 m/s Mean Velocity (LVOT): 0.46 m/s LVOT Diameter 1.60 cm Left Ventricular Ejection Fraction: 65.11 % Left Atrium LA Volume Index (2D A2C): 28.11 ml/m2 Left Atrium Systolic Dimension: 2.77 cm Mitral Valve Mitral Valve E-Wave Peak Velocity: 1.23 m/s Right Ventricle RV Internal Diastolic Dimension: 3.21 cm Aorta AO Root Diam: 2.67 cm Ascending Ao Diam: 2.74 cm Aortic Valve AoV Area (Peak Man): 0.63 cm2, 0.64 cm2, 0.71 cm2, 0.55 cm2 AoV Area (VTI): 0.67 cm2, 0.65 cm2, 0.79 cm2, 0.60 cm2 Peak Velocity(Antegrade Flow): 2.12 m/s, 1.96 m/s, 2.41 m/s Peak Gradient(Antegrade Flow): 17.97 mm[Hg], 15.44 mm[Hg], 23.15 mm[Hg] Mean Velocity(Antegrade Flow): 1.57 m/s, 1.38 m/s, 1.57 m/s Mean Gradient(Antegrade Flow): 11.10 mm[Hg], 8.46 mm[Hg], 11.22 mm[Hg] Velocity Time Integral: 42.85 cm, 34.21 cm, 42.90 cm Tricuspid Valve Peak Velocity (Regurgitant Flow): 2.48 m/s, 2.26 m/s, 2.30 m/s, 2.38 m/s, 2.30 m/s, 2.24 m/s Pulmonic Valve Mean Gradient: 1.80 mm[Hg], 1.84 mm[Hg] Mean Velocity: 0.63 m/s, 0.64 m/s Peak Velocity: 0.92 m/s Peak Gradient: 3.25 mm[Hg], 3.51 mm[Hg] Right Atrium Right Atrium Systolic Pressure: 37.85 ml, 37.85 ml Dictated by: Leslie Brown M.D. on 05/11/2024 at 17:44 Approved by: Leslie Brown M.D. on 05/11/2024 at 17:51
--- NOTE | 2024-05-11 10:10 | XR_ITS ---
The [address] [address] Patient Name: CECELIA VILLALPANDO MRN: [id number] date: 1940 Sex: F Assigned Patient Location: [place] Current Patient Location: [place] Accession/Order Number: [id number] Exam Date: 05/11/2024 10:00 Report Date: 05/11/2024 10:51 At the request of: EMILIA JACKSON Procedure: XR acute abdomen series EXAMINATION: XR acute abdomen series HISTORY: ileus vs sbo COMPARISON: No relevant comparison available. FINDINGS: LUNGS: Hyperinflation. The lungs are clear. MEDIASTINUM: No abnormal widening. Left bipolar pacemaker. Small hiatal hernia BOWEL GAS PATTERN: Gaseous distention ofr a bowel loop in the left mid abdomen measuring 5.2 cm. Air is seen in the rectum FREE AIR: None. CALCIFICATIONS: None significant. BONES: Moderate degenerative changes. Remote internal fixation of both proximal femurs. Neurostimulator in the right pelvis OTHER: Negative. XR/XR acute abdomen series IMPRESSION: Hyperinflation, clear lungs Dilated left mid abdominal bowel loop with an overall nonobstructive gas pattern Electronically authenticated by: MATI GARCIA Date: 05/11/2024 10:51
[2024-05-11 10:46] LABS: Troponin I High Sensitivity 11.2 pg/mL (4.0-51.3)
--- NOTE | 2024-05-11 11:34 | SWNOTE1 ---
SW met with pt and in room. Pt was able to tell SW that she was at [facility], she said year was 2022, and she knew it was April. SW did let her know that it was 2023. Pt's did answer several questions during assessment. They live together at [facility]. voiced they have been there for over a year, he thinks. SW spoke to them about discharge planning. SW asked pt if she has felt she has declined in the past few days/weeks? She stated yes. SW mentioned the possibility of pt going to rehab for a short time to get stronger. Pt initially stated that she does not feel that is necessary. Pt's voiced he is not sure. At this time SW to come back once therapy comes in and then will re-assess discharge plans. Important Message from Medicare reviewed and discussed with patient. Pt. verbalized understanding and signed the form. Original given to patient and copy placed in patient?s chart.
--- NOTE | 2024-05-11 11:42 | SWNOTE1 ---
Important Message from Medicare reviewed and discussed with patient and pt's . Patient and verbalized understanding and she had pt's signed the form. Original given to patient's and copy placed in patient?s chart.
--- NOTE | 2024-05-11 12:48 | PC.NURSE ---
Addendum entered by Juana Hernandez 05/11/24 12:49: Area to sacrum noted red, warm and intact. Original Note: Area to sacrum not red, warm and intact.
[2024-05-11] MEDS: LEVOFLOXACIN IN DEXTROSE 5 % 750 MG/150 ML PREMIX 100 MG IV (13:15)
--- NOTE | 2024-05-11 13:47 | SWNOTE1 ---
JORDI did speak to therapy prior to going in room. Pt did walk the halls with walker, would still benefit from SNF. At minimum needs walker and HH. Pt possibly has walker and HH coming in. JORDI called Swapna at [facility] to see if pt had HH coming in. She reached out to director of the MA and pt does have HH coming in. JORDI spoke with pt and . Pt and voiced it went well. SW did ask about Home Health and pt stated they come in 2x a week. SW asked about walker and pt stated she has one, voiced he is not sure where it is. SW encouraged pt's to look for walker this evening. If can't find walker, then we will look in to getting her one for at home. SW did let pt and know that pt will still benefit from rehab for her own safety. At this time pt voices she prefers to go home and resume Home Health. Pt and both do not know name of HH company coming in. SW to reach out to [facility]. JORDI called [facility] and [facility] and neither provide care for pt. JORDI emailed Swapna to see if they are able to find out. Waiting to hear back. JORDI updated doctor as well.
--- NOTE | 2024-05-11 14:15 | SWNOTE1 ---
SW called [facility] and pt is not current with them.
--- NOTE | 2024-05-11 15:43 | SWNOTE1 ---
SW reached back out to the [facility] since no HH company is aware of this patient. SW spoke to Swapna and Juana (director of Independent Living), they think it is [facility], which is private care giving. Swapna provided SW with daughter's other phone numbers. SW called daughters Juana and Kait and left messages. SW called daughter, Doris, and spoke to her. She confirmed that it is private caregivers coming in 2x a week to assist with bathing, cleaning, and grocery shopping. She is open to Home Health come in as well. She stated her mother does not do a lot during the day and sleeps a lot. She does not have a preference on Home Health companies at this time. SW to speak with pt again. Pt does not have a preference on HH companies and is agreeable to have HH come in. Referral sent to [facility] . . Referral included face sheet, ED note, H&P, provider notes, case management report, and PT/OT notes.
--- NOTE | 2024-05-11 16:12 | SWNOTE1 ---
SW did speak with nursing and there are some concerns with both pt and having some memory issues. SW to pass this on to Swapna at [facility] and let her know to tell Tran, the director of Independent Living. SW recommended having them evaluated for Assisted Living versus Independent Living.
--- NOTE | 2024-05-11 16:13 | SWNOTE1 ---
[facility] is able to accept.
[2024-05-12] VITALS (20 sets, daily range): BP systolic 109–135; BP diastolic 68–83; PULSE 78–94; TEMP 36.3–36.8; O2SAT 93–97
[2024-05-12] MEDS: METHYLPREDNISOLONE SOD SUCC PF 40 MG/ML VIAL IVP ×4 (01:22→18:00)
[2024-05-12] MEDS: PIPERACILLIN SODIUM/TAZOBACTAM 3.375 GM in 0.9 % SODIUM CHLORIDE 50 ML IV ×3 (01:22→18:00)
[2024-05-12] MEDS: LACTATED RINGER'S SOLUTION 1,000 ML 100 ML IV ×2 (05:27→19:55)
[2024-05-12] MEDS: LEVOTHYROXINE SODIUM 75 MCG TABLET PO (05:27)
[2024-05-12] MEDS: [UNRECOGNIZED DRUG - OTHER] 1 CAP PO ×3 (05:27→21:46)
[2024-05-12 07:14] LABS: Basophils Percent Auto 0.2 % (0.2-2.0); Hemoglobin 9.6 g/dL (12.0-16.0); Immature Granulocytes Abs Auto 0.01 10^3/uL (0.00-0.03); Immature Granulocytes Pct Auto 0.2 % (0.0-0.5); Lymphocytes Absolute Auto 0.9 10^3/uL (1.2-3.8); Lymphocytes Percent Auto 14.8 % (20.5-60.0); Mean Corpuscular Hemoglobin 30.8 pg (26.7-34.0); Mean Corpuscular Volume 99.4 fL (81.0-99.0); Mean Platelet Volume 9.6 fL (9.5-13.5); Monocytes Absolute Auto 0.1 10^3/uL (0.3-0.8); Monocytes Percent Auto 2.3 % (1.7-12.0); Neutrophils Percent Auto 82.5 % (43.0-75.0); Platelet Count 227 10^3/uL (150-450); Red Blood Count 3.12 10^6/uL (4.20-5.40); Red Cell Distribution Width 16.3 % (11.0-15.0); White Blood Count 6.1 10^3/uL (4.0-11.0)
[2024-05-12 07:37] LABS: Troponin I High Sensitivity 15.1 pg/mL (4.0-51.3)
[2024-05-12 07:47] LABS: Alanine Aminotransferase 16 U/L (14-59); Albumin Level 2.7 g/dL (3.4-5.0); Alkaline Phosphatase 60 U/L (46-116); Anion Gap 19.1; Aspartate Amino Transferase 15 U/L (15-37); Bilirubin Total 0.3 mg/dL (0.2-1.0); Calcium 7.8 mg/dL (8.5-10.1); Carbon Dioxide 15.4 mmol/L (21.0-32.0); Chloride 110 mmol/L (98-107); Estimated GFR (African America >60 (>=60); Estimated GFR (Non-African Ame 56 (>=60); Globulin 2.6 g/dL; Glucose 146 mg/dL (74-106); Potassium 3.5 mmol/L (3.5-5.1); Sodium 141 mmol/L (136-145); Total Protein 5.3 g/dL (6.4-8.2)
[2024-05-12 07:56] LABS: Magnesium 1.1 mg/dL (1.8-2.4)
[2024-05-12] MEDS: PANTOPRAZOLE SODIUM 40 MG VIAL IV (09:04)
--- NOTE | 2024-05-12 09:28 | CM.NOTE ---
Rounds made with Dr. Baltazar, pt denies any nausea this AM. Dr. Baltazar will advance diet today. Continue PT and OT for strengthening.
--- NOTE | 2024-05-12 09:41 | P.PN_ITS ---
Progress Note: Subjective Subjective Interval history: Patient is sleepy but arouses easily. No specific complaints just a severe generalized weakness persisting Exam Constitutional Vital Signs, click to edit/add: Last Vital Signs Temp 98.3 F 05/12/24 09:08 Pulse 86 05/12/24 09:08 Resp 18 05/12/24 09:08 BP 115/68 05/12/24 09:08 Pulse Ox 94 L 05/12/24 09:08 O2 Del Method Room Air 05/12/24 09:08 Documenting provider has reviewed patient's vital signs: yes Common normals: apparent distress (Lethargic) Chest Common normals: inspection of chest normal Respiratory Common normals: no use of accessory muscles; abnormal respiratory effort (Mild cough throughout the evaluation) Auscultation: rhonchi and diminished lung sounds; no rales Cardio Common normals: regular rate and regular rhythm GI Common normals: Normal to inspection, nondistended, normoactive bowel sounds present and soft to palpation; tender (Mild diffuse tenderness.) Extremity Common normals: normal to inspection and no clubbing, cyanosis or edema Progress Note: Objective Labs Labs: Short CBC 05/12/24 Range/Units 06:45 WBC 6.1 (4.0-11.0) 10^3/uL Hgb 9.6 L (12.0-16.0) g/dL Hct 31.0 L (36.0-48.0) % Plt Count 227 (150-450) 10^3/uL BMP 05/12/24 06:45 Sodium 141 Potassium 3.5 Chloride 110 H Carbon Dioxide 15.4 L BUN 19.0 H Creatinine 0.95 Glucose 146 H Calcium 7.8 L Liver Function 05/12/24 Range/Units 06:45 Total Bilirubin 0.3 (0.2-1.0) mg/dL AST 15 (15-37) U/L ALT 16 (14-59) U/L Alkaline Phosphatase 60 (46-116) U/L Albumin 2.7 L (3.4-5.0) g/dL Progress Note: A&P Assessment and Plan (1) Acute UTI: (2) Adult failure to thrive: (3) COPD (chronic obstructive pulmonary disease): (4) Shortness of breath: (5) COPD exacerbation: Plan Admission findings: Sinus tachycardia, respiratory distress, hypotension, normal white blood cell count on admission but with a significant left shift, follow-up CBC with a significantly diminished white blood cell count. Neutropenia. Positive urinalysis. CT scan with possible ileus versus bowel obstruction but patient without emesis ileus most likely. Repeat x-ray demonstrated resolving ileus. Acute UTI resulting in ileus resulting in severe sepsis with significant neutropenia. IV antibiotics. Check on urine culture results later today Iron deficiency anemia-monitor daily-Down somewhat today, continue to monitor Hyperglycemia-improved today Elevated BNP in the patient without significant peripheral edema or lung findings consistent with heart failure, BNP improved today, no edema still Acute exacerbation of COPD-steroids, aerosols, antibiotics Hypertension by history-monitor daily holding medications currently as patient is hypotensive Hypothyroidism-check levels Hypomagnesemia-supplement IV. Rehab: Patient good rehab candidate once cleared from her COPD and severe sepsis due to acute UTI with ileus. Admission status: Patient with a acute UTI and acute exacerbation of COPD resulting in severe sepsis with ileus. Medically necessary treatment will span 2 midnights. Inpatient status. Possible discharge tomorrow.
[2024-05-12] MEDS: MAGNESIUM SULFATE IN WATER 4 GM/100 ML PIGGYBACK IV (11:14)
[2024-05-12] MEDS: MAGNESIUM OXIDE 400 MG TABLET PO ×2 (11:14→21:47)
--- NOTE | 2024-05-12 11:28 | REH.PTDLY ---
Physical Therapy Daily Note PT Daily Note/Assess Start: 05/12/24 11:20 Freq: Status: Active Protocol: Document 05/12/24 09:45 VESTA (Rec: 05/12/24 11:28 VESTA [id number]) Physical Therapy Daily Note/Assessment Time In 09:20 Time Out 09:45 Subjective Pt in bed upon arrival, agreeable to therapy. States she thinks she needs to use restroom, and then states she already went in brief. Therapeutic Exercise Minutes (minutes) 8 Therapeutic Exercise Units 1 Therapeutic Exercise Treatment Instructed in B LE seated exs 10-15x ea for improved strength with exs including AP , LAQ, marching, hip abd step outs. Therapeutic Activity Minutes (minutes) 16 Therapeutic Activity Units 1 Therapeutic Activity Comments Nursing gets pt cleaned up in bed with rolling side to side. Cues for supine to sit transfer using bed rail SBA. Sit to stand transfers with cues to push off from bed opposed to grabbing RW CGA. Gait training with RW 15 feet to restroom as pt states she needs to go again. Pt does not make it in time and starts to have BM. Pt requires full assistance to get herself cleaned up. Able to stand using RW for support for 3 mins. Gait training another 60 feet CGA with fatigue noted. Pt sits up in chair post rx with chair alarm on for safety . Total Therapy Minutes 24 Total Physical Therapy Units 2 Daily Note Summary Pt would benefit from SNF stay as she is unable to perform self care Ind and fatigues with short distance gait.
--- NOTE | 2024-05-12 14:44 | SWNOTE1 ---
SW did receive a phone call from pt's daughter, Juana. JORDI informed her that SW had to call her sister yesterday as she tried calling her, but there was no answer. SW updated Juana with the discharge plan. She is in agreement with . SW did let her know that therapy is recommending SNF, but pt would like to return home and pt's in agreement. Juana did state she is going to call and speak with pt and try to encourage her to go skilled. SW to go in room and make sure the phone ringer is on for when daughter calls. SW did speak with pt and in room again in regards to discharge plans. Per pt's he did find the walker at home. SW again did offer to get pt to rehab at a nursing facility for a short term rehab stay. Pt voiced she wants to go home and that her will help care for her. Pt's did state to SW that he does help care for her. SW did ask if she wears briefs at home, she stated yes. JORDI asked if he assists with changing her at home and he stated yes. At this time pt and both in agreement with going home and having [facility] services coming in. Emy from [facility] will be stopping at hospital tomorrow to see pt. JORDI informed pt of this.
[2024-05-12] MEDS: ALBUTEROL SULFATE 2.5 MG/3 ML VIAL NEB IH (23:11)
[2024-05-13] VITALS (21 sets, daily range): BP systolic 94–139; BP diastolic 59–90; PULSE 65–117; TEMP 36.1–36.6; O2SAT 92–97; BMI 15.1
[2024-05-13] MEDS: METHYLPREDNISOLONE SOD SUCC PF 40 MG/ML VIAL IVP ×4 (00:10→17:43)
[2024-05-13] MEDS: PIPERACILLIN SODIUM/TAZOBACTAM 3.375 GM in 0.9 % SODIUM CHLORIDE 50 ML IV ×3 (01:12→17:43)
[2024-05-13] MEDS: ALBUTEROL SULFATE 2.5 MG/3 ML VIAL NEB IH (05:00)
[2024-05-13] MEDS: [UNRECOGNIZED DRUG - OTHER] 1 CAP PO ×3 (05:35→22:01)
[2024-05-13] MEDS: LEVOTHYROXINE SODIUM 75 MCG TABLET PO (05:35)
[2024-05-13 06:43] LABS: Alanine Aminotransferase 19 U/L (14-59); Albumin Level 2.8 g/dL (3.4-5.0); Alkaline Phosphatase 80 U/L (46-116); Anion Gap 17.1; Aspartate Amino Transferase 17 U/L (15-37); BUN Creatinine Ratio 16.2; Bilirubin Total 0.3 mg/dL (0.2-1.0); Carbon Dioxide 17.6 mmol/L (21.0-32.0); Chloride 110 mmol/L (98-107); Estimated GFR (African America >60 (>=60); Estimated GFR (Non-African Ame 53 (>=60); Globulin 2.8 g/dL; Glucose 133 mg/dL (74-106); Potassium 3.7 mmol/L (3.5-5.1); Sodium 141 mmol/L (136-145); Total Protein 5.6 g/dL (6.4-8.2)
[2024-05-13 07:02] LABS: Troponin I High Sensitivity 17.5 pg/mL (4.0-51.3)
[2024-05-13 07:16] LABS: Magnesium 2.3 mg/dL (1.8-2.4)
[2024-05-13 07:23] LABS: Hemoglobin 9.7 g/dL (12.0-16.0); Mean Corpuscular HGB Conc 31.3 g/dL (29.9-35.2); Mean Corpuscular Hemoglobin 30.3 pg (26.7-34.0); Mean Corpuscular Volume 96.9 fL (81.0-99.0); Mean Platelet Volume 9.8 fL (9.5-13.5); Platelet Count 241 10^3/uL (150-450); Red Cell Distribution Width 16.7 % (11.0-15.0); White Blood Count 8.9 10^3/uL (4.0-11.0)
[2024-05-13 07:54] LABS: Lymphocytes Absolute Manual 0.89 10^3/uL (1.20-3.80); Segmented Neut Absolute Manual 8.01 10^3/uL (1.4-6.5)
--- NOTE | 2024-05-13 08:50 | CM.NOTE ---
Rounds made with Dr. Baltazar, pt c/o having an asthma attack this AM with increased HR and Resp rate. Pt verbalizes she is having some chest pain that is reproducible on exam by Dr. Baltazar. No discharge today.
--- NOTE | 2024-05-13 09:12 | P.PN_ITS ---
Progress Note: Subjective Subjective Interval history: Patient does look somewhat improved today. Up in chair today. Exam Constitutional Vital Signs, click to edit/add: Last Vital Signs Temp 97.8 F 05/13/24 03:00 Pulse 70 05/13/24 08:00 Resp 24 H 05/13/24 05:11 BP 118/71 05/13/24 03:00 Pulse Ox 95 05/13/24 05:11 O2 Del Method Room Air 05/13/24 05:11 Documenting provider has reviewed patient's vital signs: yes Common normals: apparent distress (Lethargic) Chest Common normals: inspection of chest normal Respiratory Common normals: no use of accessory muscles; abnormal respiratory effort (Mild cough throughout the evaluation persisting) Auscultation: rhonchi (Better air exchange but rhonchi persisting) and diminished lung sounds; no rales Cardio Common normals: regular rate and regular rhythm GI Common normals: Normal to inspection, nondistended, normoactive bowel sounds pr esent and soft to palpation; tender (Mild diffuse tenderness.) Extremity Common normals: normal to inspection and no clubbing, cyanosis or edema Progress Note: Objective Labs Labs: Short CBC 05/13/24 Range/Units 07:11 WBC 8.9 (4.0-11.0) 10^3/uL Hgb 9.7 L (12.0-16.0) g/dL Hct 31.0 L (36.0-48.0) % Plt Count 241 (150-450) 10^3/uL BMP 05/13/24 06:07 Sodium 141 Potassium 3.7 Chloride 110 H Carbon Dioxide 17.6 L BUN 16.0 Creatinine 0.99 Glucose 133 H Calcium 8.0 L Liver Function 05/13/24 Range/Units 06:07 Total Bilirubin 0.3 (0.2-1.0) mg/dL AST 17 (15-37) U/L ALT 19 (14-59) U/L Alkaline Phosphatase 80 (46-116) U/L Albumin 2.8 L (3.4-5.0) g/dL Progress Note: A&P Assessment and Plan (1) Acute UTI: (2) Adult failure to thrive: (3) COPD (chronic obstructive pulmonary disease): (4) Shortness of breath: (5) COPD exacerbation: Plan Admission findings: Sinus tachycardia, respiratory distress, hypotension, normal white blood cell count on admission but with a significant left shift, follow-up CBC with a significantly diminished white blood cell count. Neutropenia. Positive urinalysis. CT scan with possible ileus versus bowel obstruction but patient without emesis ileus most likely. Repeat x-ray demonstrated resolving ileus. Acute UTI resulting in ileus resulting in severe sepsis with significant neutropenia. Continue with antibiotics, culture back later today. Possible discharge in a.m. Iron deficiency anemia-monitor daily-Down somewhat today, continue to monitor Hyperglycemia-continue to monitor Elevated BNP in the patient without significant peripheral edema or lung findings consistent with heart failure, will saline lock today. 1 dose of IV Lasix today. Acute exacerbation of COPD-steroids, aerosols, antibiotics-overall improving cough, rhonchi persisting but improving Hypertension by history-monitor daily holding medications currently as patient is hypotensive Hypothyroidism-check levels Hypomagnesemia-supplement IV.-Monitor daily Rehab: Patient good rehab candidate once cleared from her COPD and severe sepsis due to acute UTI with ileus.-At this point family would prefer her to be discharged to home. If patient stable tomorrow possible discharge tomorrow Admission status: Patient with a acute UTI and acute exacerbation of COPD resulting in severe sepsis with ileus. Medically necessary treatment will span 2 midnights. Inpatient status. Possible discharge again shooting for tomorrow.
[2024-05-13] MEDS: FUROSEMIDE 40 MG/4 ML VIAL IVP (09:57)
[2024-05-13] MEDS: MAGNESIUM OXIDE 400 MG TABLET PO ×2 (09:57→20:36)
[2024-05-13] MEDS: PANTOPRAZOLE SODIUM 40 MG VIAL IV (09:57)
--- NOTE | 2024-05-13 10:06 | PT.DAILY ---
Physical Therapy Daily Note PT Daily Note/Assess Start: 05/12/24 11:20 Freq: Status: Active Protocol: Document 05/13/24 10:03 KENDY (Rec: 05/13/24 10:06 KENDY Desktop) Physical Therapy Daily Note/Assessment Time In/Time Out Time In 09:09 Time Out 09:31 Pain In Pain N/A Pain Out Pain N/A Subjective Subjective Pt supine upon arrival. Agrees to PT. Denies pain currently. Therapeutic Exercise Time Therapeutic Exercise Minutes (minutes) 3 Therapeutic Exercise Units 0 Therapeutic Exercise Treatment Therapeutic Exercise Treatment Seated bilat LE strengthening ex complete 10x ea while sitting EOB unsupported prior to gait. Therapeutic Activity Time Therapeutic Activity Minutes (minutes) 10 Therapeutic Activity Units 1 Therapeutic Activity Treatment Bed Mobility Ability Standby Assistance Chair Transfer Ability Standby Assistance Therapeutic Activity Comments Supine>sit SBA with increased time needed. Sits EOB unsupported for 3 min while completing bilat LE strengthening ex without LOB. Sit>stand SBA with bed slightly elevated. Pt amb 100' x 2 with RW, SBA. 1x standing rest break due to fatigued. When returned to room pt needs to use restroom. Pt able to doff pull up and perform pericare IND. Needs a new pull up - donns this with set up needed. Pt then sit>stand from toilet using grab bar SBA. Amb 4' to sink to wash hands and brush hair without LOB. Amb 20' back to bed with RW, SBA. Sit>supine SBA with increased time. Remains supine with call light in reach and bed alarm activated. Total Physical Therapy Time Total Therapy Minutes 13 Total Physical Therapy Units 1 Summary Daily Note Summary Improved gait endurance and transfer ability.
--- NOTE | 2024-05-13 10:48 | SWNOTE1 ---
No discharge today. Emy from [facility] was in to see pt. JORDI to have packet ready for nursing to send dc orders to [facility] if dc over the weekend.
--- NOTE | 2024-05-13 10:49 | SWNOTE1 ---
JORDI did check PT note and did have some improvement today. JORDI sent over progress note and PT note to Ayan PEREZ.
[2024-05-13] MEDS: LEVOFLOXACIN IN DEXTROSE 5 % 750 MG/150 ML PREMIX 100 MG IV (14:50)
--- NOTE | 2024-05-13 18:25 | DIETREC ---
Offer 237 mL Ensure BID between meals. Try different formulations (Original, Clear, High PRO) and flavors as available. Pt has indicated willingness to try supplements.
[2024-05-13] MEDS: BENZONATATE 100 MG CAPSULE 200 MG PO (20:36)
[2024-05-13] MEDS: ACETAMINOPHEN 500 MG TABLET 1000 MG PO (20:36)
[2024-05-14] VITALS (19 sets, daily range): BP systolic 110–162; BP diastolic 64–92; PULSE 66–108; TEMP 36.4–36.9; O2SAT 92–96
[2024-05-14] MEDS: METHYLPREDNISOLONE SOD SUCC PF 40 MG/ML VIAL IVP ×3 (00:45→21:32)
[2024-05-14] MEDS: PIPERACILLIN SODIUM/TAZOBACTAM 3.375 GM in 0.9 % SODIUM CHLORIDE 50 ML IV (02:52)
[2024-05-14] MEDS: [UNRECOGNIZED DRUG - OTHER] 1 CAP PO ×3 (06:09→21:31)
[2024-05-14] MEDS: LEVOTHYROXINE SODIUM 75 MCG TABLET PO (06:10)
[2024-05-14 07:02] LABS: Hematocrit 34.4 % (36.0-48.0); Hemoglobin 10.9 g/dL (12.0-16.0); Immature Granulocytes Abs Auto 0.05 10^3/uL (0.00-0.03); Immature Granulocytes Pct Auto 0.6 % (0.0-0.5); Lymphocytes Absolute Auto 0.7 10^3/uL (1.2-3.8); Lymphocytes Percent Auto 8.4 % (20.5-60.0); Mean Corpuscular HGB Conc 31.7 g/dL (29.9-35.2); Mean Corpuscular Hemoglobin 30.7 pg (26.7-34.0); Mean Corpuscular Volume 96.9 fL (81.0-99.0); Mean Platelet Volume 9.8 fL (9.5-13.5); Monocytes Absolute Auto 0.2 10^3/uL (0.3-0.8); Monocytes Percent Auto 2.3 % (1.7-12.0); Neutrophils Absolute Auto 6.9 10^3/uL (1.4-6.5); Neutrophils Percent Auto 88.7 % (43.0-75.0); Platelet Count 267 10^3/uL (150-450); Red Blood Count 3.55 10^6/uL (4.20-5.40); Red Cell Distribution Width 16.7 % (11.0-15.0); White Blood Count 7.8 10^3/uL (4.0-11.0)
[2024-05-14 07:42] LABS: Alanine Aminotransferase 19 U/L (14-59); Albumin Level 2.9 g/dL (3.4-5.0); Alkaline Phosphatase 69 U/L (46-116); Anion Gap 14.7; Aspartate Amino Transferase 18 U/L (15-37); BUN Creatinine Ratio 15.7; Bilirubin Total 0.4 mg/dL (0.2-1.0); Calcium 7.9 mg/dL (8.5-10.1); Carbon Dioxide 22.7 mmol/L (21.0-32.0); Chloride 109 mmol/L (98-107); Estimated GFR (African America 58 (>=60); Estimated GFR (Non-African Ame 48 (>=60); Glucose 117 mg/dL (74-106); Potassium 3.4 mmol/L (3.5-5.1); Sodium 143 mmol/L (136-145); Total Protein 5.9 g/dL (6.4-8.2)
[2024-05-14 07:46] LABS: Magnesium 1.9 mg/dL (1.8-2.4)
[2024-05-14 07:52] LABS: Troponin I High Sensitivity 18.7 pg/mL (4.0-51.3)
--- NOTE | 2024-05-14 08:57 | XR_ITS ---
The [address] [address] Patient Name: CECELIA VILLALPANDO MRN: [id number] date: 1940 Sex: F Assigned Patient Location: Current Patient Location: Accession/Order Number: [id number] Exam Date: 05/14/2024 09:40 Report Date: 05/14/2024 10:31 At the request of: SHAIKH JUAN Procedure: XR acute abdomen series PROCEDURE: XR acute abdomen series DATE: 05/14/2024 8:40 AM CDT COMPARISONS: 05/11/2024 CLINICAL INDICATION: 83 years Female abdominal pain FINDINGS: Frontal view the chest the heart and mediastinum are within normal limits and stable. Electronic cardiac device is in stable position. The lung barreto show moderate chronic lung changes, stable. Lungs are free of infiltrates, masses or nodules. There is no evidence of pleural effusion or pneumothorax. Hiatal hernia overlies the lower mediastinum as before. There is no evidence of free intraperitoneal air. Electronic device overlies the lower right abdomen with a lead extending to the right sacrum. There is moderate gas of the colon and of the small bowel. It appears as a small amount of stomach gas. This bowel gas is nonspecific. It could represent ileus the amount of gaseous distention of the small and large bowel appear slightly more prominent than the abdomen and pelvis February 08, 2024. No abnormal calcifications overlie the abdomen. Postop changes of the proximal femora. Diffuse bone demineralization again identified mild lumbar degenerative spondylosis, stable XR/XR acute abdomen series IMPRESSION: 1. Chronic lung changes, stable chest 2. There is more distention of the small and large bowel by gas on today's exam than on 05/10/2024 or the etiology is unclear. This could represent ileus. It does not have typical appearance of small bowel obstruction. It could possibly represent some distal large bowel obstruction but this is considered less likely than ileus. Electronically authenticated by: ROGE SCOTT Date: 05/14/2024 10:31
[2024-05-14] MEDS: MAGNESIUM OXIDE 400 MG TABLET PO ×2 (09:21→21:31)
[2024-05-14] MEDS: ACETAMINOPHEN 500 MG TABLET 1000 MG PO (09:22)
--- NOTE | 2024-05-14 09:51 | PT.DAILY ---
Physical Therapy Daily Note PT Daily Note/Assess Start: 05/12/24 11:20 Freq: Status: Active Protocol: Document 05/14/24 09:40 [id number] (Rec: 05/14/24 09:51 [id number]) Physical Therapy Daily Note/Assessment Time In/Time Out Time In 08:21 Time Out 08:35 Pain In Pain Level 0 Pain Out Pain Level 0 Subjective Subjective Patient received supine in bed . Agreeable to participating with PT and requests to use the bathroom before walking. Therapeutic Exercise Time Therapeutic Exercise Minutes (minutes) 5 Therapeutic Exercise Units 1 Therapeutic Exercise Treatment Therapeutic Exercise Treatment Patient performed seated ERROL LE ther ex to increase strength for ADL's. ERROL ankle /heel taps/raises, LAQ's, hip ABD/ADD x 10 reps each. Therapeutic Activity Time Therapeutic Activity Minutes (minutes) 9 Therapeutic Activity Units 1 Therapeutic Activity Treatment Bed Mobility Ability Modified Independent Chair Transfer Ability Modified Independent Therapeutic Activity Comments Patient able to sit EOB without LOB or UE support. Safe hand placement for transfer from bedside to FWW with MOD I. Patient ambulated ~15 ft. to bathroom, able to doff pull up I, utilizes toilet and performs hygiene MOD I. Pull up changed due to being soiled, MIN A to devin pull up. Patient able to stand at sink and wash hands with MOD I. Patient ambulated ~105 ft. with FWW with MOD I. No LOB during functional tasks. Patient seated chair at bedside, CBWR, nursing notified of patient placement and acknowledged information. Total Physical Therapy Time Total Therapy Minutes 14 Total Physical Therapy Units 2 Summary Daily Note Summary Patient able to doff pull up this date, but does require MIN A to devin. No LOB with functional tasks but does verbalize some fatigue. Patient would benefit from [place] to address functional deficits upon DC.
[2024-05-14] MEDS: PANTOPRAZOLE SODIUM 40 MG VIAL IV (12:38)
--- NOTE | 2024-05-14 16:00 | PM.IMPN1 ---
Progress Note: A&P Assessment and Plan (1) Sepsis: Assessment and Plan: Stable hemodynamically. No need for IV fluids. Monitor closely. Urine culture is positive for gram-negative rods. Continue with IV Levaquin. Discontinue IV Zosyn. Qualifiers: Sepsis type: sepsis due to unspecified organism Sepsis acute organ dysfunction status: without acute organ dysfunction Qualified Code(s): A41.9 - Sepsis, unspecified organism (2) Acute UTI: Assessment and Plan: Continue with IV Levaquin. Follow-up final sensitivity of the urine culture. (3) Adult failure to thrive: Assessment and Plan: Will set patient up with home health upon discharge. (4) COPD exacerbation: Assessment and Plan: Presented with COPD exacerbation. Improved but is still dyspnea noted on exertion. Continue with systemic steroids, inhaled bronchodilators. Monitor closely. (5) Shortness of breath: Assessment and Plan: Improved. But is still experiencing shortness of breath on exertion. Continue with systemic steroids, inhaled bronchodilators. (6) Abnormal CT of the abdomen: Assessment and Plan: Abnormal CT of the abdomen indicating possible ileus versus obstruction. Patient has no GI symptoms and denies nausea, vomiting, abdominal pain, constipation, diarrhea. X-ray obtained today shows worsening dilatation. General surgery consulted for the recommendation. (7) Ileus: Assessment and Plan: Abnormal CT of the abdomen indicating possible ileus versus obstruction. Patient has no GI symptoms and denies nausea, vomiting, abdominal pain, constipation, diarrhea. X-ray obtained today shows worsening dilatation. General surgery consulted for the recommendation. Internal Medicine - PN: Subj Subjective Interval history: Seen and examined. No overnight events. Denies nausea, vomiting, constipation, diarrhea, abdominal pain. Patient is still feeling short of breath on exertion. Resting comfortably and denies shortness of breath at rest. Exam Constitutional Vital Signs, click to edit/add: Last Vital Signs Temp 97.9 F 05/14/24 15:24 Pulse 85 05/14/24 15:24 Resp 20 05/14/24 15:24 BP 118/73 05/14/24 15:24 Pulse Ox 92 L 05/14/24 15:24 O2 Del Method Room Air 05/14/24 15:24 Common normals: no apparent distress General appearance: cooperative, comfortable, ill appearing and frail appearing Nutritional appearance: cachectic [facility] Common normals: normocephalic and head/scalp atraumatic Respiratory Common normals: normal respiratory effort and no use of accessory muscles Effort & inspection: able to speak in complete sentences Auscultation: wheezes expiratory wheezes Cardio Common normals: no JVD, regular rate, regular rhythm, S1 normal heart sound and S2 normal heart sound GI Common normals: Normal to inspection, nondistended, normoactive bowel sounds present, soft to palpation, non-tender and no hepatosplenomegaly Extremity Common normals: normal to inspection and full ROM Neuro Common normals: oriented x3, moves all extremities and no focal motor deficits Psych Common normals: mental status grossly normal, thought process normal, denies homicidal ideation and denies suicidal ideation Internal Medicine - PN: Obj Da Labs Labs: Laboratory Results - last 24 hr 05/14/24 06:45 WBC 7.8 RBC 3.55 L Hgb 10.9 L Hct 34.4 L MCV 96.9 MCH 30.7 MCHC 31.7 RDW 16.7 H Plt Count 267 MPV 9.8 Neut % (Auto) 88.7 H Lymph % (Auto) 8.4 L [place] % (Auto) 2.3 Eos % (Auto) 0.0 L Baso % (Auto) 0.0 L Neut # (Auto) 6.9 H Lymph # (Auto) 0.7 L [place] # (Auto) 0.2 L Eos # (Auto) 0.0 Baso # (Auto) 0.0 Abs Immat Gran (auto) 0.05 H Imm/Tot Granulo (auto) 0.6 H Sodium 143 Potassium 3.4 L Chloride 109 H Carbon Dioxide 22.7 Anion Gap 14.7 BUN 17.0 Creatinine 1.08 H Est GFR ( Amer) 58 L Est GFR (Non-Af Amer) 48 L BUN/Creatinine Ratio 15.7 Glucose 117 H Calcium 7.9 L Magnesium 1.9 Total Bilirubin 0.4 AST 18 ALT 19 Alkaline Phosphatase 69 Troponin I High Sens 18.7 NT-Pro-B Natriuret Pep 12738.0 H* Total Protein 5.9 L Albumin 2.9 L Globulin 3.0 Albumin/Globulin Ratio 1.0
[2024-05-14 18:19] LABS: Lactate/Lactic Acid 2.4 mmol/L (0.4-2.0)
[2024-05-14] MEDS: DIAZEPAM 10 MG/2 ML SYRINGE IV (22:53)
[2024-05-15] VITALS (10 sets, daily range): BP systolic 132–142; BP diastolic 78–86; PULSE 82–100; TEMP 36.6; O2SAT 92–95
--- NOTE | 2024-05-15 00:04 | XR_ITS ---
The [address] [address] Patient Name: CECELIA VILLALPANDO MRN: [id number] date: 1940 Sex: F Assigned Patient Location: MS Current Patient Location: MS Accession/Order Number: [id number] Exam Date: 05/15/2024 00:25 Report Date: 05/15/2024 06:45 At the request of: KAROL GUTIERRES Procedure: XR chest 1V CLINICAL HISTORY: Check NGT placement. EXAMINATION: Portable AP upright chest: 05/15/2024 at 0023 hours. COMPARISON: Portable chest: 02/11/2024. FINDINGS: The esophagogastric tube extends below the diaphragm. There is a bipolar pacemaker with electrode leads in right atrium, right ventricle. The visualized osseous structures appear intact. The heart size seems normal. The aorta is tortuous, atherosclerotic. Lungs are hyperinflated but no focal infiltrates, pleural effusions, pulmonary edema or pneumothorax. XR/XR chest 1V IMPRESSION: 1. Hyperinflated lungs without acute cardiopulmonary disease. 2. Esophagogastric tube is in the stomach. Electronically authenticated by: IBRAHIMA SPAULDING Date: 05/15/2024 06:45
--- NOTE | 2024-05-15 00:05 | FL_ITS ---
The [address] [address] Patient Name: CECELIA VILLALPANDO MRN: [id number] date: 1940 Sex: F Assigned Patient Location: MS Current Patient Location: MS Accession/Order Number: [id number] Exam Date: 05/15/2024 03:00 Report Date: 05/15/2024 05:25 At the request of: KAROL GUTIERRES Procedure: FL small bowel follow through EXAM: FL small bowel follow through HISTORY: abnormal CT scan COMPARISON: Acute abdomen series dated 05/11/2024. TECHNIQUE: One view of the abdomen was obtained after one hour. FINDINGS: Contrast is seen throughout the rectum to the level of the rectum. A suspected sacral neurostimulator device is seen. Partially imaged are postsurgical changes of both femurs. The imaged lung bases are clear. A supine view is suboptimal for evaluation of intraperitoneal free air though none is seen. No acute osseous abnormality is seen. FL/FL small bowel follow through IMPRESSION: 1. Contrast is seen throughout the colon to the level of the rectum. Electronically authenticated by: Brant HEMPHILL Date: 05/15/2024 05:25
[2024-05-15] MEDS: LEVOTHYROXINE SODIUM 75 MCG TABLET PO (07:33)
[2024-05-15] MEDS: [UNRECOGNIZED DRUG - OTHER] 1 CAP PO ×2 (07:33→13:35)
--- NOTE | 2024-05-15 08:19 | P.GSCN_ITS ---
History of Present Illness Consult details Consult date: 05/15/24 Reason for consult: abdominal pain Narrative: Cecelia Dominguez is a 83 yo F with PMH of COPD who presented to the ER on 05/10/24 with her from home with complaints of 4 days of dyspnea. The patient was noted to have a brief full of dried feces. Chest CT demonstrated COPD exacerbation and urinalysis found nitrites and white blood cells. Patient was admitted for treatment of COPD exacerbation and UTI. Upon admission, the patient noted some abdominal pain and an abdominal CT was ordered, which demonstrated findings of possible obstruction. The patients COPD was managed with steroids, aerosols, and antibiotics, and the patients UTI improved with antibiotics. General surgery was consulted today, prior to her discharge for clinical correlation with CT findings. NG tube was placed for conservative management of possible obstruction. The patient was seen this morning resting in bed with NG tube in place. She noted discomfort from the NG tube and asked for its removal, stating she was developing a headache. She denied abdominal pain at this time, as well as nausea, vomiting, hematochezia, melena, diarrhea. She states prior surgical history of appendectomy, cholecystectomy, and jenjunoileal shunt placed in [place] [address] CT Scan Report Addendum Patient: CECELIA DOMINGUEZ MR#: [id number] : 1940 Acct:[id number] Age/Sex: 83 / F ADM Date: 05/10/24 Loc: ER Attending Dr: Ordering Physician: Sammie Roberts Date of Service: 05/10/24 Procedure(s): CT abdomen pelvis w con Accession Number(s): [id number] cc: Effie Jackman M.D.~ ADDENDUM The [address] [address] Patient Name: CECELIA DOMINGUEZ MRN: [id number] date: 1940 Sex: F Assigned Patient Location: ER Current Patient Location: ER Accession/Order Number: [id number] Exam Date: 05/10/2024 09:19 Report Date: 05/10/2024 22:49 At the request of: SAMMIE MARKER Procedure: CT abdomen pelvis w con Begin Addendum #1 Correction to impression #4 which should state: Questionable mesenteric twisting with dilatation of focal small bowel loops measuring up to 3. 9 centimeters. There is no upstream dilatation of the remainder of the small bowel at this time. This may represent an area of small bowel intussusception which may be transient or focal enteritis. Early closed loop obstruction is also a diagnostic consideration but is considered less likely. Original Report EXAM: CT angio chest, CT abdomen pelvis w con HISTORY: SOB, elevated d dimer COMPARISON: 04/22/2021 TECHNIQUE: CT angiography of the pulmonary arteries and CT of the abdomen and pelvis following the administration of intravenous contrast. Coronal and sagittal MIP (maximum intensity projection) images were performed. FINDINGS: TUBES AND IMPLANTS: Fixation hardware involving both proximal femurs. CHEST: CHEST WALL AND LOWER NECK: Unremarkable. MEDIASTINUM AND CARLOS: No hematoma. No enlarged lymph nodes by CT size criteria. Large hiatal hernia. AORTA: No aneurysm or dissection. HEART: Not enlarged PULMONARY ARTERIES: No embolism CORONARY ARTERIES: No coronary artery calcifications. LUNG AND AIRWAYS: Background of mild centrilobular emphysema PLEURA: Unremarkable. BONES: Osteopenia. Multilevel degenerative changes of the spine. Mild chronic appearing compression deformity of T9. ABDOMEN and PELVIS ABDOMINAL WALL AND SOFT TISSUES: Unremarkable. BONES: No suspicious lesions. Mild levoconvex scoliosis. Multilevel degenerative changes of the spine. ARTERIES: No aortoiliac aneurysm. VEINS: Unremarkable. LYMPH NODES: Unremarkable. PERITONEUM/ RETROPERITONEUM: Unremarkable. BOWEL: The nondilated large bowel appears diffusely distended with air-fluid levels . There is suggestion of mesenteric twisting with dilatation of focal small bowel loops which measure up to 3. 9 centimeters (series 6, images 77-88). The remainder of the small bowel appears decompressed. APPENDIX: Unremarkable LIVER: No suspicious lesions. GALLBLADDER: Surgically absent BILE DUCTS: Prominent SPLEEN: Unremarkable. PANCREAS: Unremarkable. ADRENALS: Unremarkable. KIDNEYS/ URETERS: Unremarkable. REPRODUCTIVE ORGANS: Uterus is surgically absent. Bilateral ovaries are not clearly identified. URINARY BLADDER: Unremarkable. Addendum Dictated By: Brenda Cisneros M.D. Addendum Signed By: Addendum Cosigned By: DD/ TD/TT: / ADDENDUM CT/CT abdomen pelvis w con IMPRESSION: 1. No evidence of acute pulmonary embolism. 2. Large hiatal hernia. 3. Background of mild centrilobular emphysema. 4. Suggestion of mesenteric twisting with dilatation of focal small bowel loops measuring up to 3. 9 centimeters. This is concerning for a closed loop obstruction, alternatively this may represent an area of small bowel intussusception however there is no upstream dilatation of the remainder of the small bowel at this time. 5. Nondilated large bowel appears diffusely distended with air-fluid levels. This suggests an ileus. Electronically authenticated by: BRENDA CISNEROS Date: 05/10/2024 22:49 Addendum Dictated By: Brenda Cisneros M.D. Addendum Signed By: Addendum Cosigned By: DD/ TD/TT: / [place] [address] Patient Name: CECELIA DOMINGUEZ MRN: [id number] date: 1940 Sex: F Assigned Patient Location: ER Current Patient Location: ER Accession/Order Number: [id number] Exam Date: 05/10/2024 09:19 Report Date: 05/10/2024 22:36 At the request of: SAMMIE MARKER Procedure: CT abdomen pelvis w con EXAM: CT angio chest, CT abdomen pelvis w con HISTORY: SOB, elevated d dimer COMPARISON: 04/22/2021 TECHNIQUE: CT angiography of the pulmonary arteries and CT of the abdomen and pelvis following the administration of intravenous contrast. Coronal and sagittal MIP (maximum intensity projection) images were performed. FINDINGS: TUBES AND IMPLANTS: Fixation hardware involving both proximal femurs. CHEST: CHEST WALL AND LOWER NECK: Unremarkable. MEDIASTINUM AND CARLOS: No hematoma. No enlarged lymph nodes by CT size criteria. Large hiatal hernia. AORTA: No aneurysm or dissection. HEART: Not enlarged PULMONARY ARTERIES: No embolism CORONARY ARTERIES: No coronary artery calcifications. LUNG AND AIRWAYS: Background of mild centrilobular emphysema PLEURA: Unremarkable. BONES: Osteopenia. Multilevel degenerative changes of the spine. Mild chronic appearing compression deformity of T9. ABDOMEN and PELVIS ABDOMINAL WALL AND SOFT TISSUES: Unremarkable. BONES: No suspicious lesions. Mild levoconvex scoliosis. Multilevel degenerative changes of the spine. ARTERIES: No aortoiliac aneurysm. VEINS: Unremarkable. LYMPH NODES: Unremarkable. PERITONEUM/ RETROPERITONEUM: Unremarkable. BOWEL: The nondilated large bowel appears diffusely distended with air-fluid levels . There is suggestion of mesenteric twisting with dilatation of focal small bowel loops which measure up to 3.9 centimeters (series 6, images 77-88). The remainder of the small bowel appears decompressed. APPENDIX: Unremarkable LIVER: No suspicious lesions. GALLBLADDER: Surgically absent BILE DUCTS: Prominent SPLEEN: Unremarkable. PANCREAS: Unremarkable. ADRENALS: Unremarkable. KIDNEYS/ URETERS: Unremarkable. REPRODUCTIVE ORGANS: Uterus is surgically absent. Bilateral ovaries are not clearly identified. URINARY BLADDER: Unremarkable. CT/CT abdomen pelvis w con IMPRESSION: 1. No evidence of acute pulmonary embolism. 2. Large hiatal hernia. 3. Background of mild centrilobular emphysema. 4. Suggestion of mesenteric twisting with dilatation of focal small bowel loops measuring up to 3.9 centimeters. This is concerning for a closed loop obstruction, alternatively this may represent an area of small bowel intussusception however there is no upstream dilatation of the remainder of the small bowel at this time. 5. Nondilated large bowel appears diffusely distended with air-fluid levels. This suggests an ileus. Electronically authenticated by: BRENDA CISNEROS Date: 05/10/2024 22:36 Dictated By: Brenda Cisneros M.D. Signed By: 05/10/242238 DD/ 35 TD/TT: Library Consultant: Review of Systems ROS Status of ROS 10 or more systems reviewed and unremark able except as noted in history and below [facility] Medical History (Updated 05/15/24 @ 11:19 by Nestor Hernandez MD) Pacemaker ?Z95.0 - Presence of cardiac pacemaker (ICD-10) Asthma ?J45.909 - Unspecified asthma, uncomplicated (ICD-10) Surgical History History of cholecystectomy ?Z90.49 - Acquired absence of other specified parts of digestive tract (ICD- 10) History of hysterectomy ?Z90.710 - Acquired absence of both cervix and uterus (ICD-10) History of appendectomy ?Z90.49 - Acquired absence of other specified parts of digestive tract (ICD- 10) Social History Within the past year, how often did you have a drink containing alcohol: monthly or less Within the past year, how many standard drinks containing alcohol did you have on a typical day: 1 or 2 Within the past year, how often did you have six or more drinks on one occasion: never Total score: 0 Score interpretation: A score less than 3 is consistent with normal alcohol consumption. Smoking status: Never smoker Non-prescribed substance use: denies use Previous occupational history: retired Highest level of school completed/degree received: Associate degree: occupational, technical, vocational program Are you now , , , , never or living with a partner: Little interest or pleasure in doing things: not at all Feeling down, depressed, or hopeless: not at all Feel stressed/tense/nervous/anxious/difficulty sleeping: not at all Do you think of yourself as: straight/heterosexual Gender Identity: female Meds Home Medications and Allergies Home Medications ?Medication ?Instructions ?Recorded ?Confirmed ?Type albuterol sulfate 90 mcg/actuation 2 puff inhalation DAILY 02/11/24 05/11/24 History aerosol inhaler levothyroxine 75 mcg tablet 75 mcg PO DAILY 02/11/24 05/11/24 History metoprolol succinate 25 mg 12.5 mg PO DAILY 05/11/24 05/11/24 History tablet,extended release 24 hr Allergies Allergy/AdvReac Type Severity Reaction Status Date / Time psyllium [From Metamucil] Allergy Severe Hives Verified 09/22/23 16:18 Exam Narrative Exam Narrative: Gen: Alert, in no acute distress HEENT: Head normocephalic/atraumatic. NG tube in place. CV: RRR no murmurs, rubs, gallops, radial pulses 2+ b/l. Lungs: Normal chest excursion b/l. Rhonchi and diminished lung sounds. Abdomen: Soft, nontender, nondistended. Normoactive bowel sounds. No hepatosplenomegally. Negative Cowart's, McBurney's, Rovsing, [place]. Extremities: Spontaneously moves all four limbs. Constitutional Vital Signs, click to edit/add: Last Vital Signs Temp 97.9 F 05/15/24 08:06 Pulse 86 05/15/24 08:06 Resp 16 05/15/24 08:06 BP 142/86 H 05/15/24 08:06 Pulse Ox 92 L 05/15/24 08:06 O2 Del Method Room Air 05/15/24 08:06 Results Labs Labs: Abnormal lab results 05/14/24 Range/Units 17:50 Lactate 2.4 H* (0.4-2.0) mmol/L All other labs normal. Imaging Abdominal x-ray: report reviewed Abdomen CT scan report/results: report reviewed Assessment and Plan Assessment and Plan (1) Sepsis: Qualifiers: Sepsis acute organ dysfunction status: without acute organ dysfunction Sepsis type: sepsis due to unspecified organism Qualified Code(s): A41.9 - Sepsis, unspecified organism (2) Acute UTI: (3) Adult failure to thrive: (4) COPD exacerbation: (5) Shortness of breath: (6) Abnormal CT of the abdomen: (7) Ileus: (8) Abnormal CT scan, gastrointestinal tract: Plan Patient without abdominal complaints at this time without clinically significant abdominal exam. Does not need surgical intervention at this time. I had ordered a small bowel series to rule out bowel obstruction and that came back normal and patient denies any abdominal pain nausea or vomiting. Therefore nasogastric tube to be discontinued and diet as tolerated and she is not surgical. Not sure why you are lactate was 2.4.
[2024-05-15 08:55] LABS: Basophils Percent Auto 0.3 % (0.2-2.0); Eosinophils Percent Auto 0.1 % (0.9-7.0); Hematocrit 38.2 % (36.0-48.0); Hemoglobin 12.1 g/dL (12.0-16.0); Immature Granulocytes Abs Auto 0.09 10^3/uL (0.00-0.03); Immature Granulocytes Pct Auto 1.2 % (0.0-0.5); Lymphocytes Absolute Auto 1.2 10^3/uL (1.2-3.8); Lymphocytes Percent Auto 16.1 % (20.5-60.0); Mean Corpuscular HGB Conc 31.7 g/dL (29.9-35.2); Mean Corpuscular Hemoglobin 31.5 pg (26.7-34.0); Mean Corpuscular Volume 99.5 fL (81.0-99.0); Mean Platelet Volume 10.5 fL (9.5-13.5); Monocytes Absolute Auto 0.5 10^3/uL (0.3-0.8); Monocytes Percent Auto 6.3 % (1.7-12.0); Neutrophils Absolute Auto 5.7 10^3/uL (1.4-6.5); Platelet Count 169 10^3/uL (150-450); Red Blood Count 3.84 10^6/uL (4.20-5.40); Red Cell Distribution Width 16.7 % (11.0-15.0); White Blood Count 7.5 10^3/uL (4.0-11.0)
[2024-05-15 09:09] LABS: Alanine Aminotransferase 33 U/L (14-59); Albumin Globulin Ratio 1.1; Albumin Level 3.1 g/dL (3.4-5.0); Alkaline Phosphatase 60 U/L (46-116); Anion Gap 16.6; Aspartate Amino Transferase 42 U/L (15-37); BUN Creatinine Ratio 20.3; Bilirubin Total 0.5 mg/dL (0.2-1.0); Carbon Dioxide 22.3 mmol/L (21.0-32.0); Chloride 110 mmol/L (98-107); Estimated GFR (African America >60 (>=60); Estimated GFR (Non-African Ame >60 (>=60); Globulin 2.9 g/dL; Glucose 103 mg/dL (74-106); Potassium 3.9 mmol/L (3.5-5.1); Sodium 145 mmol/L (136-145)
[2024-05-15 09:12] LABS: Magnesium 1.9 mg/dL (1.8-2.4)
[2024-05-15] MEDS: MAGNESIUM OXIDE 400 MG TABLET PO (09:47)
[2024-05-15] MEDS: METHYLPREDNISOLONE SOD SUCC PF 40 MG/ML VIAL IVP (10:43)
[2024-05-15] MEDS: PANTOPRAZOLE SODIUM 40 MG VIAL IV (10:43)
--- NOTE | 2024-05-15 11:51 | PM.DS1 ---
DS: Providers Provider Date of admission: 05/11/24 09:07 Primary care physician: Effie Jackman MD Admitting clinician: Isak Baltazar Attending physician on admission: Isak Baltazar Consults: 05/11/24 Consult to Dietitian Routine Reason for consultation: weight loss (50 lbs in 6 months) 05/11/24 09:07 Consult to Electrical And Radio Mechanic Routine Reason for consult:: Nursing Home Occupational Therapy Eval and Treat Routine Reason for consultation: Only if needed for Rehab Has provider been notified: No Physical Therapy Eval and Treat Routine Reason for consultation: Eval and Treat Has provider been notified: No 05/11/24 12:18 Consult to Wound Care Routine Consulting Provider: Kimani Valles Reason for consultation: decubitus Has provider been notified: No 05/14/24 15:55 Consult to General Surgeon Routine Consulting Provider: Nestor Hernandez Reason for consultation: Abnormal CT Attending physician on discharge: Shaikh Jennie Discharging clinician: Shaikh Jennie Anticipated date of discharge: 05/15/24 DS: Diagnosis Discharge Diagnosis (1) Sepsis: Assessment and plan: Stable hemodynamics. Stable for discharge on oral Levaquin. Qualifiers: Sepsis type: sepsis due to unspecified organism Sepsis acute organ dysfunction status: without acute organ dysfunction Qualified Code(s): A41.9 - Sepsis, unspecified organism (2) Acute UTI: Assessment and plan: Secondary to gram-negative rods. Final sensitivity and identity is pending. Will discharge on oral Levaquin. (3) Adult failure to thrive: Assessment and plan: Will benefit from outpatient evaluation by nutrition. (4) COPD exacerbation: Assessment and plan: Active bronchospasm or wheezing noted on exam. Stable for discharge on oral prednisone. (5) Shortness of breath: Assessment and plan: Due to COPD exacerbation. Improved. Stable for discharge. (6) Abnormal CT of the abdomen: Assessment and plan: Abnormal CT of the abdomen noted on admission concerning for ileus versus ileitis versus intussusception. No GI symptoms reported by patient. Evaluated by general surgery. No surgical intervention. Outpatient follow-up. (7) Ileus: Assessment and plan: No GI symptoms. No surgical intervention. Output lower DS: Summary Hospital Course Hospital Course: 83-year-old female presented with worsening shortness of breath to ER and was found to have sepsis secondary to UTI along with COPD exacerbation for which she was started on systemic steroids, inhaled bronchodilators along with IV Levaquin/Zosyn for sepsis secondary to UTI. She did not receive IV hydration for sepsis because of concern for volume overload in the setting of elevated BNP. Patient also had an abnormal CT abdomen pelvis upon arrival that was concerning for ileus versus intussusception. Patient clinically improved during the course of admission. Her urine culture is positive for gram-negative rods and her Zosyn was discontinued. She was evaluated by general surgery for the abnormal CT abdomen pelvis and since she did not have any GI signs or symptoms and was tolerating oral diet without any complaints, no surgical intervention or workup was recommended. Patient will be discharged with outpatient follow-up for the abnormal CT scan finding. She is stable from respiratory point of view and has been doing well. She is medically stable for discharge on oral Levaquin to finish the course of antibiotic for UTI and p.o. prednisone for COPD Status at Discharge Functional status at discharge: uses cane/walker Overall status at discharge: patient is back to baseline Time Spent with Patient Time attestation: Total time spent providing and/or coordinating discharge services: Time spent: greater than 30 minutes Exam Constitutional Vital Signs, click to edit/add: Last Vital Signs Temp 97.9 F 05/15/24 08:06 Pulse 96 H 05/15/24 10:00 Resp 16 05/15/24 08:06 BP 142/86 H 05/15/24 08:06 Pulse Ox 92 L 05/15/24 08:06 O2 Del Method Room Air 05/15/24 08:06 Common normals: no apparent distress General appearance: cooperative, comfortable, ill appearing and frail appearing Nutritional appearance: cachectic Respiratory Common normals: normal respiratory effort, no use of accessory muscles and clear to auscultation bilaterally Effort & inspection: able to speak in complete sentences Cardio Common normals: no JVD, regular rate, regular rhythm, S1 normal heart sound and S2 normal heart sound GI Common normals: Normal to inspection, nondistended, normoactive bowel sounds present, soft to palpation, non-tender and no hepatosplenomegaly Extremity Common normals: normal to inspection and full ROM Neuro Common normals: oriented x3, moves all extremities and no focal motor deficits Psych Common normals: mental status grossly normal, thought process normal, denies homicidal ideation and denies suicidal ideation DS: Data Data Completed and Pending Labs on day of discharge: Labs from last 24 hours 05/15/24 05/14/24 08:43 17:50 WBC 7.5 RBC 3.84 L Hgb 12.1 Hct 38.2 MCV 99.5 H MCH 31.5 MCHC 31.7 RDW 16.7 H Plt Count 169 MPV 10.5 Neut % (Auto) 76.0 H Lymph % (Auto) 16.1 L Isabela % (Auto) 6.3 Eos % (Auto) 0.1 L Baso % (Auto) 0.3 Neut # (Auto) 5.7 Lymph # (Auto) 1.2 Isabela # (Auto) 0.5 Eos # (Auto) 0.0 Baso # (Auto) 0.0 Abs Immat Gran (auto) 0.09 H Imm/Tot Granulo (auto) 1.2 H Sodium 145 Potassium 3.9 Chloride 110 H Carbon Dioxide 22.3 Anion Gap 16.6 BUN 16.0 Creatinine 0.79 Est GFR ( Amer) >60 Est GFR (Non-Af Amer) >60 BUN/Creatinine Ratio 20.3 Glucose 103 Lactate 2.4 H* Calcium 8.0 L Magnesium 1.9 Total Bilirubin 0.5 AST 42 H ALT 33 Alkaline Phosphatase 60 Total Protein 6.0 L Albumin 3.1 L Globulin 2.9 Albumin/Globulin Ratio 1.1 Preliminary micro results at discharge 05/10/24 20:50 Urine Culture - Preliminary Urine,Clean Catch Gram negative jacklyn Discharge Plan Discharge Disposition: Home Health Service Condition: Fair Discharge Medications: New levofloxacin 750 mg tablet 750 mg PO DAILY 5 Days Qty: 5 0RF prednisone 20 mg tablet 20 mg PO BID Qty: 10 0RF Continued levothyroxine 75 mcg tablet 75 mcg PO DAILY albuterol sulfate 90 mcg/actuation HFA aerosol inhaler 2 puff INHALATION DAILY metoprolol succinate 25 mg tablet extended release 24 hr 12.5 mg PO DAILY Activity: increase activity as tolerated Diet: advance to your usual diet Print Language: [place] Citizen Channel Manager/Phosphoric Acid Operator Instructions: Discharge home with [facility]. They should contact you within 48 hours of discharge. Phone number is [phone] Forms: Portal Instructions Follow Up Appointments: F/u with PCP in one week
--- NOTE | 2024-05-16 14:52 | CM.DCFOLLOWU ---
1st attempt 05/16/24, no answer
--- NOTE | 2024-05-17 14:59 | CM.DCFOLLOWU ---
Person spoke with: Daughter How are you feeling? She is doing better- Home health came in to see pt today How is your pain? No pain Did you understand your discharge instructions? Yes Do you have any questions about your discharge instructions? No Were you given any prescriptions at discharge? Yes Were you able to get your prescriptions filled? Yes Do you understand how to take your medications as ordered? Yes Do you have any questions about your follow up appointment and do you plan to keep your follow up appointment? No questions and pt will go to f/u appt Is there anything else that you would like to discuss? No Questions/Comments/Concerns/Other:
== END 2024-05-15 14:00 | disposition home health service (06) | DRG 871 ==
LOC: ER 19:59 → MS 05-11 00:23
PROVIDERS: Registered Nurse; Admitting Provider Family Medicine; Emergency Provider Emergency Medicine; PCP Family Medicine; Visit Provider Internal Medicine
DX: A41.59 Other Gram-negative sepsis (principal); E43 Unspecified severe protein-calorie malnutrition; N39.0 Urinary tract infection, site not specified; K56.7 Ileus, unspecified; J44.1 Chronic obstructive pulmonary disease with (acute) exacerbation; Z68.1 Body mass index [BMI] 19.9 or less, adult; R06.03 Acute respiratory distress; D70.9 Neutropenia, unspecified; D50.9 Iron deficiency anemia, unspecified; E03.9 Hypothyroidism, unspecified; I10 Essential (primary) hypertension; R62.7 Adult failure to thrive; L89.151 Pressure ulcer of sacral region, stage 1; E83.42 Hypomagnesemia; R73.9 Hyperglycemia, unspecified; R79.89 Other specified abnormal findings of blood chemistry; Z90.49 Acquired absence of other specified parts of digestive tract; Z90.710 Acquired absence of both cervix and uterus; Z95.0 Presence of cardiac pacemaker; Z79.890 Hormone replacement therapy; Z79.899 Other long term (current) drug therapy
CPT/HCPCS: 36415; 71045; 71275; 74022; 74177; 74248; 80053; 81001; 83605; 83735; 83880; 84100; 84436; 84443; 84484; 85007; 85025; 85027; 85378; 87086; 87150; 87186; 93005; 93306; 94640; 94667; 94668; 94761; 96361; 96365; 96366; 96367; 96368; 96375; 96376; 97110; 97161; 97165; 97530; 99285; J0696; J1940; J2543; J2919; J3360; J3475; Q9963; Q9967

== ENCOUNTER 2024-05-21 15:01 | Observation (INO) | payer MEDICARE, OTHER, SELFPAY ==
[2024-05-21] VITALS (8 sets, daily range): BP systolic 106–136; BP diastolic 61–91; PULSE 97–109; TEMP 36.4–36.7; O2SAT 94–100; BMI 15.9; BMI 16.2
--- OUTSIDE RECORDS SUMMARY | 2024-05-21 15:08 | XMS_ITS | CCD ---
Author Organization [facility] Care Team Providers Care Beck Operator Name Role Phone PHYSICIAN, DEFAULT Unavailable Unavailable PHYSICIAN, DEFAULT Unavailable Unavailable DANIELLE COFFMAN Unavailable Unavailable JACK PINA Unavailable Unavailable NONSTAFF, [facility] Unavailable Unavailable Jack Sanches ENVIRONMENTAL MARKETING REPRESENTATIVE-C Admitting UnavailJack Pandey ENVIRONMENTAL MARKETING REPRESENTATIVE-C Attending Unavaila Jani Obando Primary Care Unavailable JSOH, DR DARBY Primary Care Unavailable SHAIKH Joshua [...] sources) levoFLOXacin; Translations: [LEVOFLOXACIN] Drug Allergy 08-07-2017 [facility] Repository (3 sources) psyllium; Translations: [PSYLLIUM] Drug Allergy 02-22-2009 [facility] Repository (11 sources) levoFLOXacin Drug Allergy 02-05-2016 hives [facility] Repository (1 source) Penicillin Drug Allergy [facility] Repository (11 sources) Psyllium Drug Allergy 03-03-2013 anaphylaxis [facility] Repository Medications Current Medications Medication Drug Class(es) Dates Sig (Normalized) Sig (Original) Acetaminophen (10 sources) Acetaminophen Active Albuterol (10 sources) beta2-Adrenergic Agonist Albuterol Sulfate HFA Active amylase 06699 unt / lipase 3000 unt / protease 9500 unt delayed release oral capsule (10 sources) take 7251-3774 [IU] by mouth three times daily at mealtime Creon 8453-5270 UNIT as directed Orally tid w meals [...] 3 Chronic Other aftercare (1 source) Other mcc (current) drug therapy; Translations: [OTH INTERMEDIATE CURRENT DRUG THERAPY] Onset: 3 Episodic Other [...] Onset: 7 Unclassified (1 source) Fall / 41276() Onset: 7 Unclassified (1 source) Arm Injury / 86101() Onset: 7 Unclassified (1 source) R06.02 - [...] Range Facility Office Visiton 04-11-2024 Follow-up visit [id number] Asia Dominguez L 1940 F Date Provider Department Center 04/11/2024 [id number] BILLINGS [facility] Family History Problem Relation Age of Onset Stroke Mother Other Mother No Known Problems Father Family Status - Relation Status Age at Mother Father Level of Service:25365 [place] POSTOP FOLLOW UP VISIT RELATED TO ORIGINAL PX Normal [facility] HEMOGLOBIN AND HEMATOCRIT, B LOODon 04-05-2024 Hematocrit (Bld) [Volume fraction] 29.6 % Low 36.0-48.0 [facility] Comment on above: Performed By: #### L [id number] #### [facility] ([facility]) [address] [place] [address] Hemoglobin (Bld) [Mass/Vol] 9.8 g/dL Low 12.0-15.0 [facility] Comment on above: Performed By: #### L [id number] #### [facility] (BEAKER) [address] [place] [address] 30on 04-04-2024 30 The patient is Moderately [...] goals for the shift include stable vitals [facility] 30 Daily Case Managemen t Update Multidisciplinary rounds have been completed. Barriers to Discharge: Pending Clinical Course. Admitted with Third degree heart block-Planning PPM implantation today. Planning to Return [place] [facility] [place] [facility] with on discharge. Diet: Dietary Orders (From admission, onward) Start Ordered 04/04/24 0001 Diet NPO Diet effective midnight Comments: Sips with medications Question: Reason for NPO: Answer: Operation/Procedure 04/03/24 0744 04/03/24 1233 Special Kitchen Request Once Comments: Grilled cheese on wheat, vanilla ice, fruit cup, 2 diet coke 04/03/24 1235 04/03/24 0824 Special Kitchen Request Once Comments: Zay 2 libyan toast, butter and syrup.turkey sausage, grits with brown sugar and butter, raspberry syriac,orange juice and coffee, cream and sugar 04/03/24 0826 04/02/24 1302 Special Kitchen Request Once Comments: Zay send hot roast beef sandwich, mashed potatoes and gravy, Chicken noodle soup, Ramos pie,diet cola, cottage cheese 04/02/24 1303 Physician Expected Discharge Date: 04/05/2024 Discharge Delays: PT Six Click Score: 23 OT Six Click Score: PT Recommendations: OT Recommendations: New Consults: [facility] 30 The patient is Moderately Stable - Low risk of patient condition declining or worsening The patient's goals for the shift include comfort The clinical goals for the shift include Vss, safety Over the shift, the patient did not make progress toward the following goals. Barriers to progression include na. Recommendations to address these barriers include na. [facility] 30on 04-03-2024 30 The patient is Moderately Stable - Low risk of patient condition declining or worsening The patient's goals for the shift include comfort and rest The clinical goals for the shift include stable VS Over the shift, the patient did not make progress toward the following goals. Barriers to progression include na. Recommendations to address these barriers include na. [facility] 30 The patient is Moderately Stable - Low risk of patient condition declining or worsening The patient's goals for the shift include comfort and rest The clinical goals for the shift include stable VS Over the shift, the patient continues to make progress toward the following goals. [facility] 30on 04-02-2024 30 The patient is Moderately Stable - Low risk of patient condition declining or worsening The patient's goals for the shift include The clinical goals for the shift include vss Over the shift, the patient did not make progress toward the following goals. Barriers to progression include na. Recommendations to address these barriers include na. [facility] 30 The patient is Moderately Stable - Low risk of patient condition declining or worsening The patient's goals for the shift include The clinical goals for the shift include vss Over the shift, the patient continues to make progress toward the following goal. [facility] CONSULTon 04-02-2024 CONSULT --- Attestation signed by [...] medical history of Abnormal ECG, Alzheimer disease ([facility]), Asthma, Atrial fibrillation ([facility]), Bradycardia, COPD (chronic obstructive pulmonary disease) ([facility]), Dementia ([facility]), Hypothyroidism, and RLS (restless legs syndrome). Surgical [...] QT Interval 532 QTC CALCULATION(BAZETT) 411 P [place] 82 R-[place] -60 T Wave [place] 71 Impression Sinus rhythm with complete heart [...] ECG 12 (more content not included)... Normal [facility] APTTon 04-01-2024 ACTIVATED PARTIAL THROMBOPLASTIN TIME IN PPP BY COAGULATION ASSAY 33.9 Seconds Normal 25.0-35.0 [facility] Comment on above: Result Comment: Clin ical significance of the APTT is questionable in the presence of heparin. Performed By: #### L [id number] ####[facility] (BEAKER)[address] [place] [address] B-TYPE NATRIURETIC PEPTIDEon 04-01-2024 Natriuretic peptide B (Bld) [Mass/Vol] 566 pg/mL High 0-100 [facility] Comment on above: Performed By: #### L [id number] #### [facility] ([facility]) [address] [place] [address] BASIC METABOLIC PANELon 07- Anion gap [Moles/Vol] 9 mmol/L Normal 7-20 [facility] Comment on above: Performed By: #### L [id number] ####[facility] ([facility])[address] [place] [address] Calcium [Mass/Vol] 8.0 mg/dL Low 8.6-10.3 [facility] Comment on above: Performed By: #### L [id number] ####[facility] (BEAKER)[address] [place] [address] Chloride [Moles/Vol] 112 mmol/L High 98-107 [facility] Comment on above: Performed By: #### L [id number] ####[facility] (BEAKER)[address] [place] [address] CO2 [Moles/Vol] 18 mmol/L Low 21-31 [facility] Comment on above: Performed By: #### L [id number] ####[facility] (BEAKER)[address] [place] [address] Creatinine [Mass/Vol] 0.83 mg/dL Normal 0.60-1.20 [facility] Comment on above: Performed By: #### L [id number] ####[facility] (BEAKER)[address] [place] [address] GLOMERULAR FILTRATION RATE ML/MIN/1.73 SQ M.PREDICTED 69.0 mL/min/1.73m*2 Normal >60.0 [facility] Comment on above: Result Comment: The [facility]???s estimated glomerular filtration rate (eGFR) will [...] of individuals. Performed By: #### L [id number] ####[facility] (BEAKER)[address] [place] [address] Glucose [Mass/Vol] 91 mg/dL Normal 70-100 [facility] Comment on above: Performed By: #### L [id number] ####[facility] (BEAKER)[address] [place] [address] Potassium [Moles/Vol] 4.3 mmol/L Normal 3.5-5.1 [facility] Comment on above: Performed By: #### L [id number] ####[facility] (BEAKER)[address] [place] [address] Sodium [Moles/Vol] 135 mmol/L Low 136-145 [facility] Comment on above: Performed By: #### L [id number] ####[facility] ([facility])[address] [facility] [place] [address] Urea nitrogen [Mass/Vol] 19 mg/dL Normal 7-25 [facility] Comment on above: Performed By: #### L [id number] ####[facility] ([facility])[address] [place] [address] UREA NITROGEN/CREATININE (MASS RATIO) IN SER/PLAS 22.9 Normal [facility] Comment on above: Performed By: #### L [id number] ####[facility] ([facility])[address] [place] [address] CBC WITH AUTO DIFFERENTIALon 04-01-2024 Basophils (Bld) [#/Vol] 0.04 10*3/uL Normal 0.00-0.20 [facility] Comment on above: Performed By: #### L [id number] #### [facility] ([facility]) [address] [place] [address] Basophils/100 WBC (Bld) 1.0 % Normal 0.0-1.0 [facility] Comment on above: Performed By: #### L [id number] #### [facility] ([facility]) [address] [place] [address] Eosinophils (Bld) [#/Vol] 0.56 10*3/uL High 0.00-0.50 [facility] Comment on above: Performed By: #### L [id number] #### [facility] ([facility]) [address] [place] [address] Eosinophils/100 WBC (Bld) 13.9 % High 0.0-6.0 [facility] Comment on above: Performed By: #### L [id number] #### [facility] ([facility]) [address] [place] [address] Erythrocyte distribution width (RBC) [Ratio] 14.2 % Normal 11.5-15.0 [facility] Comment on above: Performed By: #### L [id number] #### [facility] ([facility]AKER) [address] [place] [address] ERYTHROCYTE MEAN CORPUSCULAR HEMOGLOBIN CONCENTRATION (G/DL) BY AUTOMATED 31.3 g/dL Low 32.0-35.0 [facility] Comment on above: Performed By: #### L [id number] #### [facility] (BEAKER) [address] [place] [address] Hematocrit (Bld) [Volume fraction] 31.3 % Low 36.0-48.0 [facility] Comment on above: Performed By: #### L [id number] #### [facility] ([facility]ER) [address] [place] [address] Hemoglobin (Bld) [Mass/Vol] 9.8 g/dL Low 12.0-15.0 [facility] Comment on above: Performed By: #### L [id number] #### [facility] (BEAKER) [address] [place] [address] Immature granulocytes (Bld) [#/Vol] 0.00 10*3/uL Normal 0.00-0.20 [facility] Comment on above: Performed By: #### L [id number] #### [facility] ([facility]ER) [address] [place] [address] Immature granulocytes/100 WBC (Bld) 0.0 % Normal 0.0-1.0 [facility] Comment on above: Performed By: #### L [id number] #### [facility] (BEAKER) [address] [place] [address] Lymphocytes (Bld) [#/Vol] 1.85 10*3/uL Normal 1.20-4.00 [facility] Comment on above: Performed By: #### L [id number] #### [facility] (BEAKER) [address] [place] [address] Lymphocytes/100 WBC (Bld) 45.9 % High 20.0-45.0 [facility] Comment on above: Performed By: #### L [id number] #### [facility] ([facility]) [address] [place] [address] MCH (RBC) [Entitic mass] 30.9 pg Normal 27.0-33.0 [facility] Comment on above: Performed By: #### L [id number] #### [facility] ([facility]) [address] [place] [address] MCV (RBC) [Entitic vol] 98.7 fL High 82.0-98.0 [facility] Comment on above: Performed By: #### L [id number] #### [facility] ([facility]) [address] [place] [address] Monocytes (Bld) [#/Vol] 0.45 10*3/uL Normal 0.10-1.00 [facility] Comment on above: Performed By: #### L [id number] #### [facility] ([facility]) [address] [place] [address] Monocytes/100 WBC (Bld) 11.2 % Normal 5.0-12.0 [facility] Comment on above: Performed By: #### L [id number] #### [facility] ([facility]) [address] [place] [address] Neutrophils (Bld) [#/Vol] 1.13 10*3/uL Low 1.60-7.60 [facility] Comment on above: Performed By: #### L [id number] #### [facility] ([facility]) [address] [place] [address] Neutrophils/100 WBC (Bld) 28.0 % Low 40.0-72.0 [facility] Comment on above: Performed By: #### L [id number] #### [facility] ([facility]) [address] [place] [address] NRBC (PER 100 WBCS) BY AUTOMATED COUNT 0.0 % Normal 0 [facility] Comment on above: Performed By: #### L [id number] #### [facility] ([facility]) [address] [place] [address] PLATELETS (10*3/UL) IN BLOOD AUTOMATED COUNT 177 10*3/uL Normal 150-400 [facility] Comment on above: Performed By: #### L [id number] #### [facility] ([facility]) [address] [place] [address] RBC (Bld) [#/Vol] 3.17 10*6/uL Low 3.80-5.00 [facility] Comment on above: Performed By: #### L [id number] #### [facility] ([facility]) [address] [place] [address] WBC (Bld) [#/Vol] 4.03 10*3/uL Normal 4.00-10.60 [facility] Comment on above: Performed By: #### L [id number] #### [facility] ([facility]) [address] [place] [address] EDPROVon 04-01-2024 EDPROV --- Attestation signed by Felicia Medina DO at 04/02/2024 3:16 PM 2022 Emergency Medicine Coding Guide from [employer] on 04/02/2024 All calculations should be rechecked [...] Patient presents with Bradycardia Pt sent by [place] [facility] for bradycardia. Pt c/o occasional SOB but denies being symptomatic otherwise. HPI 83-year-old female with history of Alzheimer disease, asthma, A-fib, COPD, and hypothyroidism presenting due to concerns of third-degree heart block. Patient evaluated at medical artist office today after patient was found to be bradycardic at neurologist office. Per cardiology patient was in third-degree heart block and sent to be evaluated for possible pacemaker placement. Patient states that she feels tired all the time but denies any other symptoms with it. Ricardo Coma Scale Score: 15 Patient History Past Medical History: Diagnosis Date Abnormal ECG Alzheimer disease ([facility]) Asthma Atrial fibrillation ([facility]) Bradycardia COPD (chronic obstructive pulmonary disease) ([facility]) Dementia ([facility]) Hypothyroidism RLS (restless legs syndrome) Past Surgical [...] 1843 Rate: 36 Rhythm: 3rd degree block [place]: LAD QRS: 142 [place]: n/a Qtc: 411 Other findings: TWI in V3 [TS] ED Course User Index [TS] Felicia Medina DO Diagnoses as of 04/01/242002 Third degree heart block (CMS/HCC) Medical Decision Making Reviewed patie (more content not included)... Normal [facility] Office Visiton 04-01-2024 Follow-up visit [id number] Asia Dominguez 1940 F Date Provider Department Center 04/01/2024 [id number] BILLINGS [facility] Family History Problem Relation Age of Onset Stroke Mother Other Mother No Known Problems Father Family Status - Relation Status Age at Mother Father Level of Service:60808 [place] OFFICE/OUTPATIENT NEW MODERATE MDM 45 MINUTES Normal [facility] PROTIME-INRon 04-01-2024 INR IN PPP BY COAGULATION ASSAY 1.18 High 0.90-1.10 [facility] Comment on above: Result Comment: [facility] P RECOMMENDED INR FOR WARFARIN THERAPY CONDITION [...] 1995;108:231S-246S. Performed By: #### L [id number] #### [facility] ([facility]) [address] [place] [address] PROTHROMBIN TIME (PT) IN PPP BY COAGULATION ASSAY 15.0 Seconds High 12.3-14.8 [facility] Comment on above: Performed By: #### L [id number] #### [facility] ([facility]) [address] [place] [address] T4, FREEon 04-01-2024 THYROXINE (T4) FREE (NG/DL) IN SER/PLAS 0.77 ng/dL Normal 0.71-1.85 [facility] Comment on above: Performed By: #### L [id number] ####[facility] ([facility])[address] [place] [address] TROPONIN Ion 04-01-2024 Troponin I.cardiac [Mass/Vol] 0.04 ng/mL Normal 0.00-0.04 [facility] Comment on above: Performed By: #### L [id number] #### [facility] ([facility]) [address] [place] [address] TSH3 REFLEX TO FT4on 024 THYROTROPIN (MIU/L) IN SER/PLAS BY DETECTION LIMIT <= 0.05 MIU/L 6.13 mIU/L High 0.34-5.60 [facility] Comment on above: Performed By: #### L [id number] #### [facility] ([facility]) [address] [place] [address] CULTURE URINEon 01-02-2023 CULTURE URINE Isolate 1 [...] R F Nitrofurantoin <=16 S F Normal [facility] Comment on above: Performed By: #### C BC #### [facility] [address] [place] [address] Dr. Con Santana BNPon 01-01-2023 Natriuretic peptide B (Bld) [Mass/Vol] 6147.0 pg/mL Critically high <=1,800.0 [facility] Comment on above: Performed By: #### H STROPN #### [facility] [address] [place] [address] Dr. Con Santana CBC AUTO DIFFon 01-01-2023 BASO # 0.0 103/ul Normal 0.0-0.1 [facility] Comment on above: Performed By: #### C BC #### [facility] [address] [place] [address] Dr. Con Santana Basophils/100 WBC (Bld) 0.2 % Normal 0.2-2.0 [facility] Comment on above: Performed By: #### C BC #### [facility] [address] [place] [address] [address] Con Santana EO # 0.0 103/ul Normal 0.0-0.7 [facility] Comment on above: Performed By: #### C BC #### [facility] [address] [place] [address] [address] Con Santana Eosinophils/100 WBC (Bld) 0.0 % Critically low 0.9-7.0 [facility] Comment on above: Performed By: #### C BC #### [facility] [address] [address] [address] Con Santana Erythrocyte distribution width (RBC) [Ratio] 14.4 % Normal 11.0-15.0 [facility] Comment on above: Performed By: #### C BC #### [facility] [address] [place] [address] Dr. Con Santana Hematocrit (Bld) [Volume fraction] 28.5 % Critically low 36.0-48.0 [facility] Comment on above: Performed By: #### C BC #### [facility] [address] [place] [address] [address] Con Santana Hemoglobin (Bld) [Mass/Vol] 9.1 g/dL Critically low 12.0-16.0 [facility] Comment on above: Performed By: #### C BC #### [facility] [address] [place] [address] [address] Con Santana IG # 0.14 10e3/ul Critically high 0.00-0.03 [facility] Comment on above: Performed By: #### C BC #### [facility] [address] [place] [address] [address] Con Santana IG % 1.1 % Critically high 0.0-0.5 [facility] Comment on above: Performed By: #### C BC #### [facility] [address] [place] [address] [address] Con Santana LYMPH # 0.9 103/ul Critically low 1.2-3.8 [facility] Comment on above: Performed By: #### C BC #### [facility] [address] [place] [address] [address] Con Santana Lymphocytes/100 WBC (Bld) 7.3 % Critically low 20.5-60.0 [facility] Comment on above: Performed By: #### C BC #### [facility] [address] [place] [address] [address] Con Santana MANUAL DIFF REQ NO Normal [facility] Comment on above: Performed By: #### C BC #### [facility] [address] [place] [address] Dr. Con Santana MCH (RBC) [Entitic mass] 31.1 pg Normal 26.7-34.0 [facility] Comment on above: Performed By: #### C BC #### [facility] [address] [place] [address] Dr. Con Santana MCHC (RBC) [Mass/Vol] 31.9 g/dL Normal 29.9-35.2 [facility] Comment on above: Performed By: #### C BC #### [facility] [address] [place] [address] Dr. Con Santana MCV (RBC) [Entitic vol] 97.3 fL Normal 81.0-99.0 [facility] Comment on above: Performed By: #### C BC #### [facility] [address] [place] [address] Dr. Con Santana MONO # 1.3 103/ul Critically high 0.3-0.8 [facility] Comment on above: Performed By: #### C BC #### [facility] [address] [place] [address] Dr. Con Santana Monocytes/100 WBC (Bld) 10.0 % Normal 1.7-12.0 [facility] Comment on above: Performed By: #### C BC #### [facility] [address] [place] [address] Dr. Con Santana NEUT # 10.5 103/ul Critically high 1.4-6.5 [facility] Comment on above: Performed By: #### C BC #### [facility] [address] [place] [address] [address] Con Santana Neutrophils/100 WBC (Bld) 81.4 % Critically high 43.0-75.0 [facility] Comment on above: Performed By: #### C BC #### [facility] [address] [place] [address] [address] Con Santana Platelet mean volume (Bld) [Entitic vol] 10.5 fL Normal 9.5-13.5 [facility] Comment on above: Performed By: #### C BC #### [facility] [address] [address] [address] Con Santana PLT 179 103/ul Normal 150-450 [facility] Comment on above: Performed By: #### C BC #### [facility] [address] [place] [address] Dr. Con Santana RBC 2.93 106/ul Critically low 4.20-5.40 [facility] Comment on above: Performed By: #### C BC #### [facility] [address] [place] [address] [address] Con Santana WBC 12.8 103/ul Critically high 4.0-11.0 [facility] Comment on above: Performed By: #### C BC #### [facility] [address] [address] [address] Con Santana POINT OF CARE GLUCOSEon Glucose [Mass/Vol] 97 mg/dL Normal 74-106 [facility] Comment on above: Performed By: #### C BC #### [facility] [address] [address] [address] Con Santana PROF CHEM 8 (BAS METB)on Anion gap [Moles/Vol] 14.3 mmol/L Normal [facility] Comment on above: Performed By: #### H STROPN #### [facility] [address] [address] [address] Con Santana Calcium [Mass/Vol] 7.2 mg/dL Critically low 8.5-10.1 Th [facility] Comment on above: Performed By: #### H STROPN #### [facility] [address] [address] [address] Con Santana Chloride [Moles/Vol] 108 mmol/L Critically high 98-107 [facility] Comment on above: Performed By: #### H STROPN #### [facility] [address] [address] [address] Con Santana CO2 [Moles/Vol] 22.6 mmol/L Normal 21.0-32.0 [facility] Comment on above: Performed By: #### H STROPN #### [facility] [address] [address] [address] Con Santana Creatinine [Mass/Vol] 1.08 mg/dL Critically high 0.55-1.02 [facility] Comment on above: Performed By: #### H STROPN #### [facility] [address] [address] [address] Con Santana EGFR-AF SLOVENIAN 59 mL/min/1.73m2 Critically low >=60 [facility] Comment on above: Performed By: #### H STROPN #### [facility] [address] [address] [address] Con Santana EGFR-NON AF SLOVENIAN 48 mL/min/1.73m2 Critically low >=60 [facility] Comment on above: Performed By: #### H STROPN #### [facility] [address] [address] [address] Con Sanatna Glucose [Mass/Vol] 100 mg/dL Normal 74-106 [facility] Comment on above: Performed By: #### H STROPN #### [facility] [address] [address] [address] Con Santana Potassium [Moles/Vol] 3.9 mmol/L Normal 3.5-5.1 [facility] Comment on above: Performed By: #### H STROPN #### [facility] [address] [address] [address] Con Santana Sodium [Moles/Vol] 141 mmol/L Normal 136-[address] [facility] Comment on above: Performed By: #### H STROPN #### [facility] [address] [address] [address] Con Santana Urea nitrogen [Mass/Vol] 27.0 mg/dL Critically high 7.0-18.0 [facility] Comment on above: Performed By: #### H STROPN #### [facility] [address] [place] [address] Dr. Con Santana Urea nitrogen/Creatinine [Mass ratio] 25.0 mg/mg Normal [facility] Comment on above: Performed By: #### H STROPN #### [facility] [address] [place] [address] Dr. Con Santana BNPon 12-31-2022 Natriuretic peptide B (Bld) [Mass/Vol] 7148.0 pg/mL Critically high <=1,800.0 [facility] Comment on above: Performed By: #### H STROPN #### [facility] [address] [place] [address] Dr. Con Santana CBC W MANUAL DIFFon 01-01-20 ATYPICAL LYMPH # Normal [facility] Comment on above: Performed By: #### P OCGLUC #### [facility] [address] [place] [address] Dr. Con Santana ATYPICAL LYMPH % Normal [facility] Comment on above: Performed By: #### P OCGLUC #### [facility] [address] [place] [address] Dr. Con Santana BAND # 0.0 103/ul Normal 0.0-0.3 [facility] Comment on above: Performed By: #### P OCGLUC #### [facility] [address] [place] [address] Dr. Con Santana BAND % 0 % Normal 0-5 [facility] Comment on above: Performed By: #### P OCGLUC #### [facility] [address] [place] [address] Dr. Con Santana BASOM # 0.00 103/ul Normal 0.00-0.10 [facility] Comment on above: Performed By: #### P OCGLUC #### [facility] [address] [address] [address] Con Santana BASOM % 0.0 % Critically low 0.2-2.0 [facility] Comment on above: Performed By: #### P OCGLUC #### [facility] [address] [address] [address] Con Santana BLAST # Normal [facility] Comment on above: Performed By: #### P OCGLUC #### [facility] [address] [address] [address] Con Santana BLAST % Normal [facility] Comment on above: Performed By: #### P OCGLUC #### [facility] [address] [address] [address] Con Santana CORRECTED WBC Normal 4.0-11.0 [facility] Comment on above: Performed By: #### P OCGLUC #### [facility] [address] [place] [address] Dr. Con Santana EOS # 0.00 103/ul Normal 0.00-0.70 [facility] Comment on above: Performed By: #### P OCGLUC #### [facility] [address] [place] [address] Dr. Con Santana EOS% 0.0 % Critically low 0.9-7.0 [facility] Comment on above: Performed By: #### P OCGLUC #### [facility] [address] [place] [address] Dr. Con Santana HCT 27.8 % Critically low 36.0-48.0 [facility] Comment on above: Performed By: #### P OCGLUC #### [facility] [address] [address] [address] Con Santana HGB 9.0 g/dl Critically low 12.0-16.0 [facility] Comment on above: Performed By: #### P OCGLUC #### [facility] [address] [place] [address] Dr. Con Santaan LYMPHM # 0.53 103/ul Critically low 1.20-3.80 [facility] Comment on above: Performed By: #### P OCGLUC #### [facility] [address] [address] [address] Con Santana LYMPHM% 5.0 % Critically low 20.5-60.0 [facility] Comment on above: Performed By: #### P OCGLUC #### [facility] [address] [address] [address] Con Santana MCH 31.0 pg Normal 26.7-34.0 [facility] Comment on above: Performed By: #### P OCGLUC #### [facility] [address] [address] [address] Con Santana MCHC 32.4 g/dl Normal 29.9-35.2 [facility] Comment on above: Performed By: #### P OCGLUC #### [facility] [address] [address] [address] Con Santana MCV 95.9 fL Normal 81.0-99.0 [facility] Comment on above: Performed By: #### P OCGLUC #### [facility] [address] [address] [address] Con Santana METAMYELOCYTE # Normal [facility] Comment on above: Performed By: #### P OCGLUC #### [facility] [address] [address] [address] Con Santana METAMYELOCYTE % Normal [facility] Comment on above: Performed By: #### P OCGLUC #### [facility] [address] [address] [address] Con Santana MONOM# 0.11 103/ul Critically low 0.30-0.80 [facility] Comment on above: Performed By: #### P OCGLUC #### [facility] [address] [address] [address] Con Santana MONOM% 1.0 % Critically low 1.7-12.0 [facility] Comment on above: Performed By: #### P OCGLUC #### [facility] [address] [address] [address] Con Santana MPV 10.9 fL Normal 9.5-13.5 [facility] Comment on above: Performed By: #### P OCGLUC #### [facility] [address] [place] [address] Dr. Con Santana MYELOCYTE # Normal [facility] Comment on above: Performed By: #### P OCGLUC #### [facility] [address] [address] [address] Con Santana MYELOCYTE % Normal [facility] Comment on above: Performed By: #### P OCGLUC #### [facility] [address] [place] [address] Dr. Con Santana NRBC Normal [facility] Comment on above: Performed By: #### P OCGLUC #### [facility] [address] [place] [address] Dr. Con Santana PLT 184 103/ul Normal 150-450 [facility] Comment on above: Performed By: #### P OCGLUC #### [facility] [address] [place] [address] Dr. Con Santana RBC 2.90 106/ul Critically low 4.20-5.40 [facility] Comment on above: Performed By: #### P OCGLUC #### [facility] [address] [place] [address] Dr. Con Santana RDW 14.5 % Normal 11.0-15.0 [facility] Comment on above: Performed By: #### P OCGLUC #### [facility] [address] [address] [address] Con Santana SEG # 9.96 103/ul Critically high 1.40-6.50 [facility] Comment on above: Performed By: #### P OCGLUC #### [facility] [address] [place] [address] Dr. Con Santana SEG % 94.0 % Critically high 43.0-75.0 [facility] Comment on above: Performed By: #### P OCGLUC #### [facility] [address] [place] [address] Dr. Con Santana WBC 10.6 103/ul Normal 4.0-11.0 [facility] Comment on above: Performed By: #### P OCGLUC #### [facility] [address] [place] [address] Dr. Con Santana POINT OF CARE GLUCOSEon Glucose [Mass/Vol] 145 mg/dL Critically high 74-106 [facility] Comment on above: Performed By: #### I NFLUAB #### [facility] [address] [place] [address] Dr. Con Santana Glucose [Mass/Vol] 162 mg/dL Critically high 74-106 [facility] Comment on above: Performed By: #### E LISA JAVEIR #### [facility] [address] [place] [address] Dr. Con Santana Glucose [Mass/Vol] 141 mg/dL Critically high 74-106 [facility] Comment on above: Performed By: #### C BC #### [facility] [address] [place] [address] Dr. Con Santana PROF CHEM 8 (BAS METB)on Anion gap [Moles/Vol] 16.5 mmol/L [facility] Comment on above: Performed By: #### H STROPN #### [facility] [address] [place] [address] Dr. Con Santana Calcium [Mass/Vol] 7.3 mg/dL Critically low 8.5-10.1 [facility] Comment on above: Performed By: #### H STROPN #### [facility] [address] [place] [address] Dr. Con Santana Chloride [Moles/Vol] 108 mmol/L Critically high 98-107 [facility] Comment on above: Performed By: #### H STROPN #### [facility] [address] [place] [address] Dr. Con Santana CO2 [Moles/Vol] 18.5 mmol/L Critically low 21.0-32.0 [facility] Comment on above: Performed By: #### H STROPN #### [facility] [address] [address] [address] Con Santana Creatinine [Mass/Vol] 1.14 mg/dL Critically high 0.55-1.02 [facility] Comment on above: Performed By: #### H STROPN #### [facility] [address] [address] [address] Con Santana EGFR-AF SLOVENIAN 55 mL/min/1.73m2 Critically low >=60 [facility] Comment on above: Performed By: #### H STROPN #### [facility] [address] [address] [address] Con Santana EGFR-NON AF SLOVENIAN 45 mL/min/1.73m2 Critically low >=60 [facility] Comment on above: Performed By: #### H STROPN #### [facility] [address] [address] [address] Con Santana Glucose [Mass/Vol] 151 mg/dL Critically high 74-106 [facility] Comment on above: Performed By: #### H STROPN #### [facility] [address] [address] [address] Con Santana Potassium [Moles/Vol] 4.0 mmol/L Normal 3.5-5.1 [facility] Comment on above: Performed By: #### H STROPN #### [facility] [address] [address] [address] Con Santana Sodium [Moles/Vol] 139 mmol/L Normal 136-145 [facility] Comment on above: Performed By: #### H STROPN #### [facility] [address] [address] [address] Con Santana Urea nitrogen [Mass/Vol] 27.0 mg/dL Critically high 7.0-18.0 [facility] Comment on above: Performed By: #### H STROPN #### [facility] [address] [address] [address] Con Santana Urea nitrogen/Creatinine [Mass ratio] 23.7 mg/mg Normal [facility] Comment on above: Performed By: #### H STROPN #### [facility] [address] [address] [address] Con Santana XR CHEST 2 Von [...] ELEAZAR GUERRA Date: 2022-12-31 11:27 Normal [facility] BNPon 12-30-2022 Natriuretic peptide B (Bld) [Mass/Vol] 7840.0 pg/mL Critically high <=1,800.0 [facility] Comment on above: Performed By: #### I NFLUAB #### [facility] [address] [place] [address] Dr. Con Santana CBC AUTO DIFFon 12-30-2022 BASO # 0.0 103/ul Normal 0.0-0.1 [facility] Comment on above: Performed By: #### P OCGLUC #### [facility] [address] [place] [address] Dr. Con Santana Basophils/100 WBC (Bld) 0.2 % Normal 0.2-2.0 [facility] Comment on above: Performed By: #### P OCGLUC #### [facility] [address] [place] [address] Dr. Con Santana EO # 0.0 103/ul Normal 0.0-0.7 [facility] Comment on above: Performed By: #### P OCGLUC #### [facility] [address] [place] [address] Dr. Con Santana Eosinophils/100 WBC (Bld) 0.0 % Critically low 0.9-7.0 [facility] Comment on above: Performed By: #### P OCGLUC #### [facility] [address] [address] [address] Con Santana Erythrocyte distribution width (RBC) [Ratio] 13.6 % Normal 11.0-15.0 [facility] Comment on above: Performed By: #### P OCGLUC #### [facility] [address] [address] [address] Con Santana Hematocrit (Bld) [Volume fraction] 28.5 % Critically low 36.0-48.0 [facility] Comment on above: Performed By: #### P OCGLUC #### [facility] [address] [address] [address] Con Santana Hemoglobin (Bld) [Mass/Vol] 9.5 g/dL Critically low 12.0-16.0 [facility] Comment on above: Performed By: #### P OCGLUC #### [facility] [address] [place] [address] Dr. Con Santana IG # 0.09 10e3/ul Critically high 0.00-0.03 [facility] Comment on above: Performed By: #### P OCGLUC #### [facility] [address] [address] [address] Con Santana IG % 0.8 % Critically high 0.0-0.5 [facility] Comment on above: Performed By: #### P OCGLUC #### [facility] [address] [address] [address] Con Santana LYMPH # 0.8 103/ul Critically low 1.2-3.8 [facility] Comment on above: Performed By: #### P OCGLUC #### [facility] [address] [address] [address] Con Santana Lymphocytes/100 WBC (Bld) 6.9 % Critically low 20.5-60.0 [facility] Comment on above: Performed By: #### P OCGLUC #### [facility] [address] [address] [address] Con Santana MANUAL DIFF REQ NO Normal [facility] Comment on above: Performed By: #### P OCGLUC #### [facility] [address] [address] [address] Con Santana MCH (RBC) [Entitic mass] 31.3 pg Normal 26.7-34.0 [facility] Comment on above: Performed By: #### P OCGLUC #### [facility] [address] [address] [address] Con Santana MCHC (RBC) [Mass/Vol] 33.3 g/dL Normal 29.9-35.2 [facility] Comment on above: Performed By: #### P OCGLUC #### [facility] [address] [place] [address] Dr. Con Santana MCV (RBC) [Entitic vol] 93.8 fL Normal 81.0-99.0 [facility] Comment on above: Performed By: #### P OCGLUC #### [facility] [address] [place] [address] Dr. Con Santana MONO # 0.4 103/ul Normal 0.3-0.8 [facility] Comment on above: Performed By: #### P OCGLUC #### [facility] [address] [place] [address] Dr. Con Santana Monocytes/100 WBC (Bld) 3.1 % Normal 1.7-12.0 [facility] Comment on above: Performed By: #### P OCGLUC #### [facility] [address] [place] [address] Dr. Con Santana NEUT # 10.4 103/ul Critically high 1.4-6.5 [facility] Comment on above: Performed By: #### P OCGLUC #### [facility] [address] [place] [address] Dr. Con Santana Neutrophils/100 WBC (Bld) 89.0 % Critically high 43.0-75.0 [facility] Comment on above: Performed By: #### P OCGLUC #### [facility] [address] [place] [address] Dr. Con Santana Platelet mean volume (Bld) [Entitic vol] 10.8 fL Normal 9.5-13.5 [facility] Comment on above: Performed By: #### P OCGLUC #### [facility] [address] [address] [address] Con Santana PLT 189 103/ul Normal 150-450 [facility] Comment on above: Performed By: #### P OCGLUC #### [facility] [address] [address] [address] Con Santana RBC 3.04 106/ul Critically low 4.20-5.40 [facility] Comment on above: Performed By: #### P OCGLUC #### [facility] [address] [address] [address] Con Santana WBC 11.7 103/ul Critically high 4.0-11.0 [facility] Comment on above: Performed By: #### P OCGLUC #### [facility] [address] [address] [address] Con Santana POINT OF CARE GLUCOSEon Glucose [Mass/Vol] 194 mg/dL Critically high 74-106 [facility] Comment on above: Performed By: #### C BC #### [facility] [address] [address] [address] Con Santana Glucose [Mass/Vol] 191 mg/dL Critically high 74-106 [facility] Comment on above: Performed By: #### I NFLUAB #### [facility] [address] [address] [address] Con Santana Glucose [Mass/Vol] 169 mg/dL Critically high 74-106 [facility] Comment on above: Performed By: #### P OCGLUC #### [facility] [address] [address] [address] Con Santana Glucose [Mass/Vol] 173 mg/dL Critically high -106 [facility] Comment on above: Performed By: #### I NFLUAB #### [facility] [address] [address] [address] Con Santana PROF CHEM 8 (BAS METB)on Anion gap [Moles/Vol] 18.8 mmol/L Normal [facility] Comment on above: Performed By: #### I NFLUAB #### [facility] [address] [address] [address] Con Santana Calcium [Mass/Vol] 7.3 mg/dL Critically low 8.5-10.1 Th [facility] Comment on above: Performed By: #### I NFLUAB #### [facility] [address] [place] [address] Dr. Con Santana Chloride [Moles/Vol] 109 mmol/L Critically high 98-107 [facility] Comment on above: Performed By: #### I NFLUAB #### [facility] [address] [place] [address] Dr. Con Santana CO2 [Moles/Vol] 17.3 mmol/L Critically low 21.0-32.0 [facility] Comment on above: Performed By: #### I NFLUAB #### [facility] [address] [place] [address] Dr. Con Santana Creatinine [Mass/Vol] 1.28 mg/dL Critically high 0.55-1.02 [facility] Comment on above: Performed By: #### I NFLUAB #### [facility] [address] [place] [address] Dr. Con Santana EGFR-AF SLOVENIAN 48 mL/min/1.73m2 Critically low >=60 [facility] Comment on above: Performed By: #### I NFLUAB #### [facility] [address] [place] [address] Dr. Con Santana EGFR-NON AF SLOVENIAN 40 mL/min/1.73m2 Critically low >=60 [facility] Comment on above: Performed By: #### I NFLUAB #### [facility] [address] [place] [address] Dr. Con Santana Glucose [Mass/Vol] 161 mg/dL Critically high 74-106 [facility] Comment on above: Performed By: #### I NFLUAB #### [facility] [address] [place] [address] Dr. Con Santana Potassium [Moles/Vol] 3.1 mmol/L Critically low 3.5-5.1 [facility] Comment on above: Performed By: #### I NFLUAB #### [facility] [address] [place] [address] Dr. Con Santana Sodium [Moles/Vol] 142 mmol/L Normal 136-145 [facility] Comment on above: Performed By: #### I NFLUAB #### [facility] [address] [place] [address] Dr. Con Santana Urea nitrogen [Mass/Vol] 24.0 mg/dL Critically high 7.0-18.0 [facility] Comment on above: Performed By: #### I NFLUAB #### [facility] [address] [place] [address] Dr. Con Santana Urea nitrogen/Creatinine [Mass ratio] 18.8 mg/mg Normal [facility] Comment on above: Performed By: #### I NFLUAB #### [facility] [address] [place] [address] Dr. Con Santana UA RANDOM W/MICROSCOPICon BACTERIA NONE SEEN Normal NONE SEEN [facility] Comment on above: Performed By: #### P OCGLUC #### [facility] [address] [place] [address] Dr. Con Santana Bilirubin Ql (U) Negative Normal NEGATIVE [facility] Comment on above: Performed By: #### P OCGLUC #### [facility] [address] [place] [address] Dr. Con Santana CAST NONE SEEN Normal NONE SEEN [facility] Comment on above: Performed By: #### P OCGLUC #### [facility] [address] [place] [address] Dr. Con Santana Clarity (U) CLEAR Normal CLEAR [facility] Comment on above: Performed By: #### P OCGLUC #### [facility] [address] [place] [address] Dr. Con Santana Color (U) LT. YELLOW Normal YELLOW [facility] Comment on above: Performed By: #### P OCGLUC #### [facility] [address] [address] [address] Con Santana Crystals LM Nom (Urine sed) NONE SEEN Normal NONE SEEN [facility] Comment on above: Performed By: #### P OCGLUC #### [facility] [address] [place] [address] Dr. Con Santana Epithelial cells LM Ql (Urine sed) FEW Abnormal NONE SEEN /RARE [facility] Comment on above: Performed By: #### P OCGLUC #### [facility] [address] [address] [address] Con Santana Glucose Ql (U) Negative Normal NEGATIVE [facility] Comment on above: Performed By: #### P OCGLUC #### [facility] [address] [place] [address] Dr. Con Santana Hemoglobin Ql (U) Negative Normal NEGATIVE [facility] Comment on above: Performed By: #### P OCGLUC #### [facility] [address] [place] [address] Dr. Con Santana Ketones Ql (U) Negative Normal NEGATIVE [facility] Comment on above: Performed By: #### P OCGLUC #### [facility] [address] [place] [address] Dr. Con Santana LEUKOCYTES TRACE Abnormal NEGATIVE [facility] Comment on above: Performed By: #### P OCGLUC #### [facility] [address] [place] [address] Dr. Con Santana MUCOUS NONE SEEN Normal NONE SEEN [facility] Comment on above: Performed By: #### P OCGLUC #### [facility] [address] [place] [address] Dr. Con Santana Nitrite Ql (U) Negative Normal NEGATIVE [facility] Comment on above: Performed By: #### P OCGLUC #### [facility] [address] [place] [address] Dr. Con Santana pH (U) 5.5 [pH] Normal 5-9 [facility] Comment on above: Performed By: #### P OCGLUC #### [facility] [address] [place] [address] Dr. Con Santana RBC 0-2 Normal 0-2 [facility] Comment on above: Performed By: #### P OCGLUC #### [facility] [address] [address] [address] Con Santana SPEC GRAVITY 1.010 Normal 1.005-<=1.025 [facility] Comment on above: Performed By: #### P OCGLUC #### [facility] [address] [address] [address] Con Santana UA PROTEIN Negative Normal NEGATIVE/ TRACE [facility] Comment on above: Performed By: #### P OCGLUC #### [facility] [address] [address] [address] Con Santana Urobilinogen Qn (U) 0.2 {Godfrey'U}/dL Normal 0.2 - 1. 0 [facility] Comment on above: Performed By: #### P OCGLUC #### [facility] [address] [address] [address] Con Santana WBC 2-5 Abnormal NONE SEEN [facility] Comment on above: Performed By: #### P OCGLUC #### [facility] [address] [address] [address] Con Santana XR CHEST 2 Von [...] ELEAZAR GUERRA Date: 2022-12-30 11:35 Normal [facility] BNPon 12-29-2022 Natriuretic peptide B (Bld) [Mass/Vol] 4120.0 pg/mL Critically high <=1,800.0 [facility] Comment on above: Performed By: #### E LISA JAVIER #### [facility] Laboratory [address] [place] [address] Dr. Con Santana Natriuretic peptide B (Bld) [Mass/Vol] 3274.0 pg/mL Critically high <=1,800.0 [facility] Comment on above: Performed By: #### P OCGLUC #### [facility] [address] [place] [address] Dr. Con Santana CBC AUTO DIFFon 12-29-2022 BASO # 0.0 103/ul Normal 0.0-0.1 [facility] Comment on above: Performed By: #### C BC #### [facility] [address] [place] [address] Dr. Con Santana Basophils/100 WBC (Bld) 0.0 % Critically low 0.2-2.0 [facility] Comment on above: Performed By: #### C BC #### [facility] [address] [place] [address] Dr. Con Santana EO # 0.0 103/ul Normal 0.0-0.7 [facility] Comment on above: Performed By: #### C BC #### [facility] [address] [place] [address] Dr. Con Santana Eosinophils/100 WBC (Bld) 0.2 % Critically low 0.9-7.0 [facility] Comment on above: Performed By: #### C BC #### [facility] [address] [place] [address] Dr. Con Santana Erythrocyte distribution width (RBC) [Ratio] 13.6 % Normal 11.0-15.0 [facility] Comment on above: Performed By: #### C BC #### [facility] [address] [place] [address] Dr. Con Santana Hematocrit (Bld) [Volume fraction] 29.8 % Critically low 36.0-48.0 [facility] Comment on above: Performed By: #### C BC #### [facility] [address] [place] [address] Dr. Con Santana Hemoglobin (Bld) [Mass/Vol] 9.5 g/dL Critically low 12.0-16.0 [facility] Comment on above: Performed By: #### C BC #### [facility] [address] [place] [address] Dr. Con Santana IG # 0.05 10e3/ul Critically high 0.00-0.03 [facility] Comment on above: Performed By: #### C BC #### [facility] [address] [place] [address] Dr. Con Santana IG % 0.9 % Critically high 0.0-0.5 [facility] Comment on above: Performed By: #### C BC #### [facility] [address] [place] [address] Dr. Con Santana LYMPH # 0.7 103/ul Critically low 1.2-3.8 [facility] Comment on above: Performed By: #### C BC #### [facility] [address] [place] [address] Dr. Con Santana Lymphocytes/100 WBC (Bld) 13.0 % Critically low 20.5-60.0 [facility] Comment on above: Performed By: #### C BC #### [facility] [address] [place] [address] Dr. Con Santana MANUAL DIFF REQ NO Normal [facility] Comment on above: Performed By: #### C BC #### [facility] [address] [place] [address] Dr. Con Santana MCH (RBC) [Entitic mass] 30.5 pg Normal 26.7-34.0 [facility] Comment on above: Performed By: #### C BC #### [facility] [address] [place] [address] Dr. Con Santana MCHC (RBC) [Mass/Vol] 31.9 g/dL Normal 29.9-35.2 [facility] Comment on above: Performed By: #### C BC #### [facility] [address] [place] [address] Dr. Con Santana MCV (RBC) [Entitic vol] 95.8 fL Normal 81.0-99.0 [facility] Comment on above: Performed By: #### C BC #### [facility] [address] [place] [address] Dr. Con Santana MONO # 0.1 103/ul Critically low 0.3-0.8 [facility] Comment on above: Performed By: #### C BC #### [facility] [address] [address] [address] Con Santana Monocytes/100 WBC (Bld) 1.5 % Critically low 1.7-12.0 [facility] Comment on above: Performed By: #### C BC #### [facility] [address] [place] [address] Dr. Con Santana NEUT # 4.5 103/ul Normal 1.4-6.5 [facility] Comment on above: Performed By: #### C BC #### [facility] [address] [place] [address] Dr. Con Santana Neutrophils/100 WBC (Bld) 84.4 % Critically high 43.0-75.0 [facility] Comment on above: Performed By: #### C BC #### [facility] [address] [place] [address] Dr. Con Santana Platelet mean volume (Bld) [Entitic vol] 10.3 fL Normal 9.5-13.5 [facility] Comment on above: Performed By: #### C BC #### [facility] [address] [place] [address] Dr. Con Santana PLT 178 103/ul Normal 150-450 [facility] Comment on above: Performed By: #### C BC #### [facility] [address] [place] [address] Dr. Con Santana RBC 3.11 106/ul Critically low 4.20-5.40 [facility] Comment on above: Performed By: #### C BC #### [facility] [address] [place] [address] Dr. Con Santana WBC 5.3 103/ul Normal 4.0-11.0 [facility] Comment on above: Performed By: #### C BC #### [facility] [address] [address] [address] Con CRUZ # 0.0 103/ul Normal 0.0-0.1 [facility] Comment on above: Performed By: #### C BC #### [facility] [address] [address] [address] Con Santana Basophils/100 WBC (Bld) 0.1 % Critically low 0.2-2.0 [facility] Comment on above: Performed By: #### C BC #### [facility] [address] [address] [address] Con Satnana EO # 0.4 103/ul Normal 0.0-0.7 [facility] Comment on above: Performed By: #### C BC #### [facility] [address] [place] [address] Dr. Con Santana Eosinophils/100 WBC (Bld) 5.9 % Normal 0.9-7.0 [facility] Comment on above: Performed By: #### C BC #### [facility] [address] [address] [address] Con Santana Erythrocyte distribution width (RBC) [Ratio] 13.5 % Normal 11.0-15.0 [facility] Comment on above: Performed By: #### C BC #### [facility] [address] [place] [address] Dr. Con Santana Hematocrit (Bld) [Volume fraction] 29.4 % Critically low 36.0-48.0 [facility] Comment on above: Performed By: #### C BC #### [facility] [address] [address] [address] Con Santana Hemoglobin (Bld) [Mass/Vol] 9.5 g/dL Critically low 12.0-16.0 [facility] Comment on above: Performed By: #### C BC #### [facility] [address] [place] [address] Dr. Con Santana IG # 0.04 10e3/ul Critically high 0.00-0.03 [facility] Comment on above: Performed By: #### C BC #### [facility] [address] [place] [address] Dr. Con Santana IG % 0.6 % Critically high 0.0-0.5 [facility] Comment on above: Performed By: #### C BC #### [facility] [address] [place] [address] Dr. Con Santana LYMPH # 1.1 103/ul Critically low 1.2-3.8 [facility] Comment on above: Performed By: #### C BC #### [facility] [address] [place] [address] Dr. Con Santana Lymphocytes/100 WBC (Bld) 15.7 % Critically low 20.5-60.0 [facility] Comment on above: Performed By: #### C BC #### [facility] [address] [place] [address] Dr. Con Santana MANUAL DIFF REQ NO Normal [facility] Comment on above: Performed By: #### C BC #### [facility] [address] [place] [address] Dr. Con Santana MCH (RBC) [Entitic mass] 31.3 pg Normal 26.7-34.0 [facility] Comment on above: Performed By: #### C BC #### [facility] [address] [place] [address] Dr. Con Santana MCHC (RBC) [Mass/Vol] 32.3 g/dL Normal 29.9-35.2 [facility] Comment on above: Performed By: #### C BC #### [facility] [address] [place] [address] Dr. Con Santana MCV (RBC) [Entitic vol] 96.7 fL Normal 81.0-99.0 [facility] Comment on above: Performed By: #### C BC #### [facility] [address] [place] [address] Dr. Con Santana MONO # 0.4 103/ul Normal 0.3-0.8 [facility] Comment on above: Performed By: #### C BC #### [facility] [address] [address] [address] Con Santana Monocytes/100 WBC (Bld) 5.9 % Normal 1.7-12.0 [facility] Comment on above: Performed By: #### C BC #### [facility] [address] [address] [address] Con Santana NEUT # 5.0 103/ul Normal 1.4-6.5 [facility] Comment on above: Performed By: #### C BC #### [facility] [address] [address] [address] Con Santana Neutrophils/100 WBC (Bld) 71.8 % Normal 43.0-75.0 [facility] Comment on above: Performed By: #### C BC #### [facility] [address] [place] [address] Dr. Con Santana Platelet mean volume (Bld) [Entitic vol] 10.0 fL Normal 9.5-13.5 [facility] Comment on above: Performed By: #### C BC #### [facility] [address] [address] [address] Con Santana PLT 173 103/ul Normal 150-450 [facility] Comment on above: Performed By: #### C BC #### [facility] [address] [address] [address] Con Santana RBC 3.04 106/ul Critically low 4.20-5.40 [facility] Comment on above: Performed By: #### C BC #### [facility] [address] [address] [address] Con Santana WBC 7.0 103/ul Normal 4.0-11.0 [facility] Comment on above: Performed By: #### C BC #### [facility] [address] [place] [address] Dr. Con Santana ECHOCARDIO M/2D COMPLETEon 0 12-29-2022 ECHOCARDIO M/2D COMPLETE Patient: SALOME DOMINGUEZBrianne Exam Date: 12/29/2022 : 1940 Gender:F Ordering : SIVA CROSS Admission #: [id number] Family : DR EMILIA JACKSON . Order #: [id number] CLICK HERE TO VIEW EXAM ECHOCARDIOGRAM REPORT [...] Jefferson Varma M.D. on 01/01/2023 at 09:24 [facility] LACTATE/LACTIC ACIDon 2022 Lactate [Moles/Vol] 0.6 mmol/L Normal 0.4-2.0 [facility] Comment on above: Performed By: #### C BC #### [facility] [address] [address] [address] Con Santana PH VENOUS BLOODon 12-29-2022 PCO2 VENOUS 34.6 mmHg Critically low 40.0-52.0 [facility] Comment on above: Performed By: #### C BC #### [facility] [address] [address] [address] Con Santana pH VENOUS 7.343 Normal 7.330-7.430 [facility] Comment on above: Performed By: #### C BC #### [facility] [address] [place] [address] Dr. Con Santana POINT OF CARE GLUCOSEon Glucose [Mass/Vol] 217 mg/dL Critically high -106 [facility] Comment on above: Performed By: #### C BC #### [facility] [address] [place] [address] Dr. Con Santana Glucose [Mass/Vol] 199 mg/dL Critically high -106 [facility] Comment on above: Performed By: #### C BC #### [facility] [address] [place] [address] Dr. Con Santana Glucose [Mass/Vol] 202 mg/dL Critically high -106 [facility] Comment on above: Performed By: #### P OCGLUC #### [facility] [address] [place] [address] Dr. Con Santana PROF 14(COMP METB)on 023 Albumin [Mass/Vol] 2.6 g/dL Critically low 3.4-5.0 [facility] Comment on above: Performed By: #### P OCGLUC #### [facility] [address] [place] [address] Dr. Con Santana Albumin/Globulin [Mass ratio] 1.1 {ratio} Normal [facility] Comment on above: Performed By: #### P OCGLUC #### [facility] [address] [address] [address] Con Santana ALP [Catalytic activity/Vol] 67 U/L Normal 46-116 [facility] Comment on above: Performed By: #### P OCGLUC #### [facility] [address] [address] [address] Con Santana ALT [Catalytic activity/Vol] 69 U/L Critically high 14-59 [facility] Comment on above: Performed By: #### P OCGLUC #### [facility] [address] [address] [address] Con Santana Anion gap [Moles/Vol] 15.0 mmol/L Normal [facility] Comment on above: Performed By: #### P OCGLUC #### [facility] [address] [address] [address] Con Santana AST [Catalytic activity/Vol] 24 U/L Normal 15-37 [facility] Comment on above: Performed By: #### P OCGLUC #### [facility] [address] [address] [address] Con Santana Bilirubin [Mass/Vol] 0.3 mg/dL Normal 0.2-1.0 [facility] Comment on above: Performed By: #### P OCGLUC #### [facility] [address] [address] [address] Con Santana Calcium [Mass/Vol] 7.4 mg/dL Critically low 8.5-10.1 [facility] Comment on above: Performed By: #### P OCGLUC #### [facility] [address] [place] [address] Dr. Con Santana Chloride [Moles/Vol] 110 mmol/L Critically high 98-107 [facility] Comment on above: Performed By: #### P OCGLUC #### [facility] [address] [address] [address] Con Santana CO2 [Moles/Vol] 21.1 mmol/L Normal 21.0-32.0 [facility] Comment on above: Performed By: #### P OCGLUC #### [facility] [address] [address] [address] Con Santana Creatinine [Mass/Vol] 0.79 mg/dL Normal 0.55-1.02 [facility] Comment on above: Performed By: #### P OCGLUC #### [facility] [address] [address] [address] Con Santana EGFR-AF SLOVENIAN >60 Normal >=60 [facility] Comment on above: Performed By: #### P OCGLUC #### [facility] [address] [address] [address] Con Santana EGFR-NON AF SLOVENIAN >60 Normal >=60 [facility] Comment on above: Performed By: #### P OCGLUC #### [facility] [address] [address] [address] Con Santana Globulin (S) [Mass/Vol] 2.3 g/dL Normal [facility] Comment on above: Performed By: #### P OCGLUC #### [facility] [address] [address] [address] Con Santana Glucose [Mass/Vol] 115 mg/dL Critically high 74-106 [facility] Comment on above: Performed By: #### P OCGLUC #### [facility] [address] [address] [address] Con Santana Potassium [Moles/Vol] 4.1 mmol/L Normal 3.5-5.1 [facility] Comment on above: Performed By: #### P OCGLUC #### [facility] [address] [address] [address] Con Santana Protein [Mass/Vol] 4.9 g/dL Critically low 6.4-8.2 Th [facility] Comment on above: Performed By: #### P OCGLUC #### [facility] [address] [address] [address] Con Santana Sodium [Moles/Vol] 142 mmol/L Normal 136-145 [facility] Comment on above: Performed By: #### P OCGLUC #### [facility] [address] [address] [address] Con Santana Urea nitrogen [Mass/Vol] 19.0 mg/dL Critically high 7.0-18.0 [facility] Comment on above: Performed By: #### P OCGLUC #### [facility] [address] [place] [address] Dr. Con Santana Urea nitrogen/Creatinine [Mass ratio] 24.1 mg/mg Normal [facility] Comment on above: Performed By: #### P OCGLUC #### [facility] [address] [place] [address] Dr. Con Santana PROF CHEM 8 (BAS METB)on Anion gap [Moles/Vol] 13.5 mmol/L Normal [facility] Comment on above: Performed By: #### LISA INTERIANO #### [facility] [address] [place] [address] Dr. Con Santana Calcium [Mass/Vol] 7.6 mg/dL Critically low 8.5-10.1 Th [facility] Comment on above: Performed By: #### LISA INTERIANO #### [facility] [address] [place] [address] Dr. Con Santana Chloride [Moles/Vol] 110 mmol/L Critically high 98-107 [facility] Comment on above: Performed By: #### LISA INTERIANO #### [facility] [address] [place] [address] Dr. Con Santana CO2 [Moles/Vol] 18.7 mmol/L Critically low 21.0-32.0 [facility] Comment on above: Performed By: #### TIM INTERIANORO #### [facility] [address] [place] [address] Dr. Con Santana Creatinine [Mass/Vol] 0.79 mg/dL Normal 0.55-1.02 [facility] Comment on above: Performed By: #### TIM INTERIANORO #### [facility] [address] [place] [address] Dr. Con Santana EGFR-AF SLOVENIAN >60 Normal >=60 [facility] Comment on above: Performed By: #### LISA INTERIANO #### [facility] [address] [address] [address] Cno Santana EGFR-NON AF SLOVENIAN >60 Normal >=60 [facility] Comment on above: Performed By: #### E YAYA, UMICRO #### [facility] [address] [address] [address] Con Santana Glucose [Mass/Vol] 155 mg/dL Critically high 74-106 [facility] Comment on above: Performed By: #### E YAYA, UMICRO #### [facility] [address] [address] [address] Con Santana Potassium [Moles/Vol] 4.2 mmol/L Normal 3.5-5.1 [facility] Comment on above: Performed By: #### Anaya JAVIER, UMICRO #### [facility] [address] [place] [address] Dr. Con Santana Sodium [Moles/Vol] 138 mmol/L Normal 136-145 [facility] Comment on above: Performed By: #### Anaya JAVIER, UMICRO #### [facility] [address] [address] [address] Con Santana Urea nitrogen [Mass/Vol] 21.0 mg/dL Critically high 7.0-18.0 [facility] Comment on above: Performed By: #### Anaya JAVIER, UMICRO #### [facility] [address] [address] [address] Con Santana Urea nitrogen/Creatinine [Mass ratio] 26.6 mg/mg Normal [facility] Comment on above: Performed By: #### E YAYA, UMICRO #### [facility] [address] [address] [address] Con Santana PROTIMEon 12-29-2022 INR Coag (PPP) [Relative time] 1.00 {INR} [facility] Comment on above: Performed By: #### P OCGLUC #### [facility] [address] [place] [address] Dr. Con Santana INR GUIDELINES SEE BELOW Normal [facility] Comment on above: Result Comment: CANDELARIA RED INR: 2.0 - 3.0 CONDITIONS NOT LISTED BELOW 2.5 - 3.5 FOR PROSTHETIC HEART VALVE REPLACEMENT 2.5 - 3.5 RECURRENT THROMBOSIS Performed By: #### P OCGLUC #### [facility] [address] [place] [address] Dr. Con Santana PT Coag (PPP) [Time] 10.6 s Normal 9.0-11.6 [facility] Comment on above: Performed By: #### P OCGLUC #### [facility] [address] [place] [address] Dr. Con Santana PTTon 12-29-2022 aPTT Coag (Bld) [Time] 28.2 s Normal 22.3-36.2 [facility] Comment on above: Performed By: #### I NFLUAB #### [facility] [address] [place] [address] Dr. Con Santana TROPONIN, HIGH SENSITIVITYon 12-29-2022 HSTROP 16.0 pg/mL Normal 4.0-51.3 [facility] Comment on above: Result Comment: CUT- OFF POINTS HAVE BEEN ESTABLISHED BASED ON THE FOURTH UNIVERSAL DEFINITIONS OF MYOCARDIAL INFARCTION. THE UPPER REFERENCE LIMIT (URL) OF TROPONIN, DEFINED THE 99TH PERCENTILE OF cTnI DISTRIBUTION IN A REFERENCE POPULATION, HAS BEEN CONFIRMED THE DECISION THRESHOLD FOR WI DIAGNOSIS. Performed By: #### H STROPN #### [facility] [address] [place] [address] Dr. Con Santana HSTROP 23.6 pg/mL Normal 4.0-51.3 [facility] Comment on above: Result Comment: CUT- OFF POINTS HAVE BEEN ESTABLISHED BASED ON THE FOURTH UNIVERSAL DEFINITIONS OF MYOCARDIAL INFARCTION. THE UPPER REFERENCE LIMIT (URL) OF TROPONIN, DEFINED THE 99TH PERCENTILE OF cTnI DISTRIBUTION IN A REFERENCE POPULATION, HAS BEEN CONFIRMED THE DECISION THRESHOLD FOR WI DIAGNOSIS. Performed By: #### P OCGLUC #### [facility] [address] [place] [address] Dr. Con Santana XR CHEST 1 Von [...] TRINI CISNEROS Date: 2022-12-28 22:49 Normal [facility] Covid-19 PCR (CVDTB)on SARS-CoV-2 (COVID-19) RNA JEANE+probe Ql (Unsp spec) Not detected Normal NOT DETECTED [facility] Comment on above: Result Comment: When diagnostic [...] for this test is supported by the [place] of [employer] and Human Service's declaration that [...] used). Performed By: #### C VDTBH #### [facility] [address] [address] [address] Con Santana PH VENOUS BLOODon 12-28-2022 PCO2 VENOUS 40.4 mmHg Normal 40.0-52.0 [facility] Comment on above: Performed By: #### I NFLUAB #### [facility] [address] [place], [place] [address] Dr. Con Santana pH VENOUS 7.297 Critically low 7.330-7.430 [facility] Comment on above: Performed By: #### I NFLUAB #### [facility] [address] [place] [address] Dr. Con Santana CBC W MANUAL DIFFon 12-23-19 ATYPICAL LYMPH # Normal [facility] Comment on above: Performed By: #### C BC #### [facility] [address] [place] [address] Dr. Con Santana ATYPICAL LYMPH % Normal [facility] Comment on above: Performed By: #### C BC #### [facility] [address] [place] [address] Dr. Con Santana BAND # 0.0 103/ul Normal 0.0-0.3 [facility] Comment on above: Performed By: #### C BC #### [facility] [address] [place] [address] Dr. Con Santana BAND % 0 % Normal 0-5 [facility] Comment on above: Performed By: #### C BC #### [facility] [address] [place] [address] Dr. Con Santana BASOM # 0.00 103/ul Normal 0.00-0.10 [facility] Comment on above: Performed By: #### C BC #### [facility] [address] [place] [address] Dr. Con Santana BASOM % 0.0 % Critically low 0.2-2.0 [facility] Comment on above: Performed By: #### C BC #### [facility] [address] [place] [address] Dr. Con Santana BLAST # Normal [facility] Comment on above: Performed By: #### C BC #### [facility] [address] [place] [address] Dr. Con Santana BLAST % Normal [facility] Comment on above: Performed By: #### C BC #### [facility] [address] [place] [address] Dr. Con Santana CORRECTED WBC Normal 4.0-11.0 [facility] Comment on above: Performed By: #### C BC #### [facility] [address] [place] [address] Dr. Con Santana EOS # 0.00 103/ul Normal 0.00-0.70 [facility] Comment on above: Performed By: #### C BC #### [facility] [address] [address] [address] Con Santana EOS% 0.0 % Critically low 0.9-7.0 [facility] Comment on above: Performed By: #### C BC #### [facility] [address] [address] [address] Con Santana HCT 31.2 % Critically low 36.0-48.0 [facility] Comment on above: Performed By: #### C BC #### [facility] [address] [address] [address] Con Santana HGB 10.2 g/dl Critically low 12.0-16.0 [facility] Comment on above: Performed By: #### C BC #### [facility] [address] [address] [address] Con Santana LYMPHM # 0.32 103/ul Critically low 1.20-3.80 [facility] Comment on above: Performed By: #### C BC #### [facility] [address] [address] [address] Con Santana LYMPHM% 3.0 % Critically low 20.5-60.0 [facility] Comment on above: Performed By: #### C BC #### [facility] [address] [address] [address] Con Santana MCH 30.7 pg Normal 26.7-34.0 [facility] Comment on above: Performed By: #### C BC #### [facility] [address] [address] [address] Con Santana MCHC 32.7 g/dl Normal 29.9-35.2 [facility] Comment on above: Performed By: #### C BC #### [facility] [address] [address] [address] Con Santana MCV 94.0 fL Normal 81.0-99.0 [facility] Comment on above: Performed By: #### C BC #### [facility] [facility] [address] [address] [address] Con Santana METAMYELOCYTE # Normal [facility] Comment on above: Performed By: #### C BC #### [facility] [address] [address] [address] Con Santana METAMYELOCYTE % Normal [facility] Comment on above: Performed By: #### C BC #### [facility] [address] [place] [address] Dr. Con Santana MONOM# 0.11 103/ul Critically low 0.30-0.80 [facility] Comment on above: Performed By: #### C BC #### [facility] [address] [place] [address] Dr. Con Santana MONOM% 1.0 % Critically low 1.7-12.0 [facility] Comment on above: Performed By: #### C BC #### [facility] [address] [place] [address] Dr. Con Santana MPV 10.6 fL Normal 9.5-13.5 [facility] Comment on above: Performed By: #### C BC #### [facility] [address] [place] [address] Dr. Con Santana MYELOCYTE # Normal [facility] Comment on above: Performed By: #### C BC #### [facility] [address] [place] [address] Dr. Con Santana MYELOCYTE % Normal [facility] Comment on above: Performed By: #### C BC #### [facility] [address] [place] [address] Dr. Con Santana NRBC Normal [facility] Comment on above: Performed By: #### C BC #### [facility] [address] [place] [address] Dr. Con Santana PLT 242 103/ul Normal 150-450 [facility] Comment on above: Performed By: #### C BC #### [facility] [address] [place] [address] Dr. Con Santana RBC 3.32 106/ul Critically low 4.20-5.40 [facility] Comment on above: Performed By: #### C BC #### [facility] [address] [place] [address] Dr. Con Santana RDW 13.2 % Normal 11.0-15.0 [facility] Comment on above: Performed By: #### C BC #### [facility] [address] [place] [address] Dr. Con Santana SEG # 10.18 103/ul Critically high 1.40-6.50 [facility] Comment on above: Performed By: #### C BC #### [facility] [address] [place] [address] Dr. Con Santana SEG % 96.0 % Critically high 43.0-75.0 [facility] Comment on above: Performed By: #### C BC #### [facility] [address] [place] [address] Dr. Con Santana WBC 10.6 103/ul Normal 4.0-11.0 [facility] Comment on above: Performed By: #### C BC #### [facility] [address] [place] [address] Dr. Con Santana POINT OF CARE GLUCOSEon 11-27 Glucose [Mass/Vol] 139 mg/dL Critically high 74-106 [facility] Comment on above: Performed By: #### I NFLUAB #### [facility] [address] [place] [address] Dr. Con Santana Glucose [Mass/Vol] 151 mg/dL Critically high 74-106 [facility] Comment on above: Performed By: #### I NFLUAB #### [facility] [address] [place] [address] Dr. Con Santana Glucose [Mass/Vol] 200 mg/dL Critically high 74-106 [facility] Comment on above: Performed By: #### P OCGLUC #### [facility] [address] [place] [address] Dr. Con Santana PROF CHEM 8 (BAS METB)on Anion gap [Moles/Vol] 17.1 mmol/L Normal [facility] Comment on above: Performed By: #### P OCGLUC #### [facility] [address] [address] [address] Con Santana Calcium [Mass/Vol] 7.7 mg/dL Critically low 8.5-10.1 [facility] Comment on above: Performed By: #### P OCGLUC #### [facility] [address] [address] [address] Con Santana Chloride [Moles/Vol] 111 mmol/L Critically high 98-107 [facility] Comment on above: Performed By: #### P OCGLUC #### [facility] [address] [address] [address] Con Santana CO2 [Moles/Vol] 17.1 mmol/L Critically low 21.0-32.0 [facility] Comment on above: Performed By: #### P OCGLUC #### [facility] [address] [address] [address] Con Santana Creatinine [Mass/Vol] 1.46 mg/dL Critically high 0.55-1.02 [facility] Comment on above: Performed By: #### P OCGLUC #### [facility] [address] [address] [address] Con Santana EGFR-AF SLOVENIAN 41 mL/min/1.73m2 Critically low >=60 [facility] Comment on above: Performed By: #### P OCGLUC #### [facility] [address] [address] [address] Con Santana EGFR-NON AF SLOVENIAN 34 mL/min/1.73m2 Critically low >=60 [facility] Comment on above: Performed By: #### P OCGLUC #### [facility] [address] [address] [address] Con Santana Glucose [Mass/Vol] 167 mg/dL Critically high 74-106 [facility] Comment on above: Performed By: #### P OCGLUC #### [facility] [address] [address] [address] Con Santana Potassium [Moles/Vol] 3.2 mmol/L Critically low 3.5-5.1 [facility] Comment on above: Performed By: #### P OCGLUC #### [facility] [address] [address] [address] Con Santana Sodium [Moles/Vol] 142 mmol/L Normal 136-145 [facility] Comment on above: Performed By: #### P OCGLUC #### [facility] [address] [address] [address] Con Santana Urea nitrogen [Mass/Vol] 40.0 mg/dL Critically high 7.0-18.0 [facility] Comment on above: Performed By: #### P OCGLUC #### [facility] [address] [place] [address] Dr. Con Santana Urea nitrogen/Creatinine [Mass ratio] 27.4 mg/mg Normal [facility] Comment on above: Performed By: #### P OCGLUC #### [facility] [address] [place] [address] Dr. Con Santana XR CHEST 1 Von [...] by: BRINA HENRY Date: 2022-12-22 07:32 Normal [facility] POINT OF CARE GLUCOSEon 11-27 Glucose [Mass/Vol] 195 mg/dL Critically high 74-106 [facility] Comment on above: Performed By: #### P OCGLUC #### [facility] [address] [place] [address] Dr. Con Santana Glucose [Mass/Vol] 174 mg/dL Critically high 74-106 [facility] Comment on above: Performed By: #### C BC #### [facility] [address] [place] [address] Dr. Con Santana Glucose [Mass/Vol] 148 mg/dL Critically high 74-106 [facility] Comment on above: Performed By: #### C BC #### [facility] [address] [place] [address] Dr. Con Santana BNPon 12-20-2022 Natriuretic peptide B (Bld) [Mass/Vol] 1276.0 pg/mL Normal <=1,800.0 [facility] Comment on above: Performed By: #### H STROPN #### [facility] [address] [place] [address] Dr. Con Santana CARDIAC MAXIMILIANO ADMITon 023 CK [Catalytic activity/Vol] 101 U/L Normal 26-192 [facility] Comment on above: Performed By: #### H STROPN #### [facility] [address] [place] [address] Dr. Con Santana CK.MB [Mass/Vol] 1.61 ng/mL Normal <=3.60 [facility] Comment on above: Performed By: #### H STROPN #### [facility] [address] [place] [address] Dr. Con Santana HSTROP 19.8 pg/mL Normal 4.0-51.3 [facility] Comment on above: Result Comment: CUT- OFF POINTS HAVE BEEN ESTABLISHED BASED ON THE FOURTH UNIVERSAL DEFINITIONS OF MYOCARDIAL INFARCTION. THE UPPER REFERENCE LIMIT (URL) OF TROPONIN, DEFINED THE 99TH PERCENTILE OF cTnI DISTRIBUTION IN A REFERENCE POPULATION, HAS BEEN CONFIRMED THE DECISION THRESHOLD FOR WI DIAGNOSIS. Performed By: #### H STROPN #### [facility] [address] [place] [address] Dr. Con Santana RAMONA 76 ng/mL Normal 9-82 [facility] Comment on above: Performed By: #### H STROPN #### [facility] [address] [address] [address] Con Santana CBC AUTO DIFFon 12-20-2022 BASO # 0.1 103/ul Normal 0.0-0.1 [facility] Comment on above: Performed By: #### P OCGLUC #### [facility] [address] [address] [address] Con Santana Basophils/100 WBC (Bld) 0.9 % Normal 0.2-2.0 [facility] Comment on above: Performed By: #### P OCGLUC #### [facility] [address] [address] [address] Con Santana EO # 0.8 103/ul Critically high 0.0-0.7 [facility] Comment on above: Performed By: #### P OCGLUC #### [facility] [address] [place] [address] Dr. Con Santana Eosinophils/100 WBC (Bld) 12.8 % Critically high 0.9-7.0 [facility] Comment on above: Performed By: #### P OCGLUC #### [facility] [address] [place] [address] Dr. Con Santana Erythrocyte distribution width (RBC) [Ratio] 13.0 % Normal 11.0-15.0 [facility] Comment on above: Performed By: #### P OCGLUC #### [facility] [address] [place] [address] Dr. Con Santana Hematocrit (Bld) [Volume fraction] 40.9 % Normal 36.0-48.0 [facility] Comment on above: Performed By: #### P OCGLUC #### [facility] [address] [address] [address] Con Santana Hemoglobin (Bld) [Mass/Vol] 13.3 g/dL Normal 12.0-16.0 [facility] Comment on above: Performed By: #### P OCGLUC #### [facility] [address] [place] [address] Dr. Con Santana IG # 0.01 10e3/ul Normal 0.00-0.03 [facility] Comment on above: Performed By: #### P OCGLUC #### [facility] [address] [place] [address] Dr. Con Santana IG % 0.2 % Normal 0.0-0.5 [facility] Comment on above: Performed By: #### P OCGLUC #### [facility] [address] [address] [address] Con Santana LYMPH # 3.3 103/ul Normal 1.2-3.8 [facility] Comment on above: Performed By: #### P OCGLUC #### [facility] [address] [place] [address] Dr. Con Santana Lymphocytes/100 WBC (Bld) 51.5 % Normal 20.5-60.0 [facility] Comment on above: Performed By: #### P OCGLUC #### [facility] [address] [place] [address] Dr. Con Santana MANUAL DIFF REQ NO Normal [facility] Comment on above: Performed By: #### P OCGLUC #### [facility] [address] [address] [address] Con Santana MCH (RBC) [Entitic mass] 31.3 pg Normal 26.7-34.0 [facility] Comment on above: Performed By: #### P OCGLUC #### [facility] [address] [place] [address] Dr. Con Santana MCHC (RBC) [Mass/Vol] 32.5 g/dL Normal 29.9-35.2 [facility] Comment on above: Performed By: #### P OCGLUC #### [facility] [address] [place] [address] Dr. Con Santana MCV (RBC) [Entitic vol] 96.2 fL Normal 81.0-99.0 [facility] Comment on above: Performed By: #### P OCGLUC #### [facility] [address] [address] [address] Con Santana MONO # 0.5 103/ul Normal 0.3-0.8 [facility] Comment on above: Performed By: #### P OCGLUC #### [facility] [address] [place] [address] Dr. Con Santana Monocytes/100 WBC (Bld) 7.0 % Normal 1.7-12.0 [facility] Comment on above: Performed By: #### P OCGLUC #### [facility] [address] [place] [address] Dr. Con Santana NEUT # 1.8 103/ul Normal 1.4-6.5 [facility] Comment on above: Performed By: #### P OCGLUC #### [facility] [address] [place] [address] Dr. Con Santana Neutrophils/100 WBC (Bld) 27.6 % Critically low 43.0-75.0 [facility] Comment on above: Performed By: #### P OCGLUC #### [facility] [address] [place] [address] Dr. Con Santana Platelet mean volume (Bld) [Entitic vol] 9.9 fL Normal 9.5-13.5 [facility] Comment on above: Performed By: #### P OCGLUC #### [facility] [address] [place] [address] Dr. Con Santana PLT 286 103/ul Normal 150-450 [facility] Comment on above: Performed By: #### P OCGLUC #### [facility] [address] [place] [address] Dr. Con Santana RBC 4.25 106/ul Normal 4.20-5.40 [facility] Comment on above: Performed By: #### P OCGLUC #### [facility] [address] [place] [address] Dr. Con Santana WBC 6.5 103/ul Normal 4.0-11.0 [facility] Comment on above: Performed By: #### P OCGLUC #### [facility] [address] [place] [address] Dr. Con Santana CULTURE BLOODon 12-20-2022 Microscopic examination of blood, culture Culture Observations: NO GROWTH AT 5 DAYS. Normal [facility] Comment on above: Performed By: #### B LDCX2 #### [facility] [address] [place] [address] Dr. Con Santana Microscopic examination of blood, culture Culture Observations: NO GROWTH AT 5 DAYS. Normal [facility] Comment on above: Performed By: #### C BC #### [facility] [address] [place] [address] Dr. Con Santana CULTURE URINEon 12-20-2022 CULTURE URINE Culture Observations : LIGHT GROWTH OF MIXED GENITAL [place]. NO POTENTIAL PATHOGENS SEEN. Normal [facility] Comment on above: Performed By: #### C BC #### [facility] [address] [place] [address] Dr. Con Santana [facility]27 SARS-CoV-2 (COVID-19) RNA JEANE+probe Ql (Unsp spec) Not detected Normal NOT DETECTED [facility] Comment on above: Result Comment: When diagnostic [...] for this test is supported by the [place] Supervisor of Health and Human Service's declaration that [...] used). Performed By: #### C BC #### [facility] [address] [place] [address] Dr. Con Santana ER URINE PROFILEon 3 Bilirubin Ql (U) Negative Normal NEGATIVE [facility] Comment on above: Performed By: #### E LISA JAVIER #### [facility] [address] [place] [address] Dr. Con Santana Clarity (U) CLEAR Normal CLEAR [facility] Comment on above: Performed By: #### FABIANA INTERIANOICRO #### [facility] [address] [place] [address] Dr. Con Santana Color (U) LT. YELLOW Normal YELLOW [facility] Comment on above: Performed By: #### Anaya JAVIER UMICRO #### [facility] [address] [place] [address] Dr. Con KNIGHT A micrscopic examination will be performed if indicated. Normal [facility] Comment on above: Performed By: #### Anaya JAVIER UMICRO #### [facility] [address] [place] [address] Dr. Con Santana Glucose Ql (U) Negative Normal NEGATIVE [facility] Comment on above: Performed By: #### Anaya JAVIER UMICRO #### [facility] [address] [place] [address] Dr. Con Santana Hemoglobin Ql (U) TRACE-INTACT Abnormal NEGATIVE [facility] Comment on above: Performed By: #### Anaya JAVIER UMICRO #### [facility] [address] [place] [address] Dr. Con Santana Ketones Ql (U) TRACE Abnormal NEGATIVE [facility] Comment on above: Performed By: #### Anaya JAVIER UMICRO #### [facility] [address] [place] [address] Dr. Con Santana LEUKOCYTES MODERATE Abnormal NEGATIVE [facility] Comment on above: Performed By: #### Anaya JAVIER UMICRO #### [facility] [address] [place] [address] Dr. Con Santana Nitrite Ql (U) Positive Abnormal NEGATIVE [facility] Comment on above: Performed By: #### Anaya JAVIER UMICRO #### [facility] [address] [place] [address] Dr. Con Santana pH (U) 7.0 [pH] Normal 5-9 [facility] Comment on above: Performed By: #### Anaya YAYA, UMICRO #### [facility] [address] [place] [address] Dr. Con Santana SPEC GRAVITY 1.010 Normal 1.005-<=1.025 [facility] Comment on above: Performed By: #### Anaya JAVIER, UMICRO #### [facility] [address] [place] [address] Dr. Con Santana UA PROTEIN TRACE Normal NEGATIVE/ TRACE [facility] Comment on above: Performed By: #### E YAYA, ICRO #### [facility] [address] [place] [address] Dr. Con Santana UR MICRO IND INDICATED Normal [facility] Comment on above: Performed By: #### E YAYA ICRO #### [facility] [address] [place] [address] Dr. Con Santana Urobilinogen Qn (U) 0.2 {Godfrey'U}/dL Normal 0.2 - 1. 0 [facility] Comment on above: Performed By: #### Anaya JAVIER, ICRO #### [facility] [address] [place] [address] Dr. Con Santana INFLUENZA A AND B AGon 12-20 INFLUENZA A AG Negative Normal NEGATIVE SEE COMMENT [facility] Comment on above: Performed By: #### I NFLUAB #### [facility] [address] [place] [address] Dr. Con Santana INFLUENZA B AG Negative Normal NEGATIVE SEE COMMENT [facility] Comment on above: Performed By: #### I NFLUAB #### [facility] [address] [place] [address] Dr. Con Santana LACTATE/LACTIC ACIDon 2022 Lactate [Moles/Vol] 0.6 mmol/L Normal 0.4-2.0 [facility] Comment on above: Performed By: #### P OCGLUC #### [facility] [address] [place] [address] Dr. Con Santana POINT OF CARE GLUCOSEon 11-27 Glucose [Mass/Vol] 217 mg/dL Critically high 74-106 [facility] Comment on above: Performed By: #### I NFLUAB #### [facility] [address] [place] [address] Dr. Con Santana Glucose [Mass/Vol] 204 mg/dL Critically high 74-106 [facility] Comment on above: Performed By: #### P OCGLUC #### [facility] [address] [address] [address] Con Santana Glucose [Mass/Vol] 148 mg/dL Critically high 74-106 [facility] Comment on above: Performed By: #### C BC #### [facility] [address] [address] [address] Con Santana PROF 14(COMP METB)on 023 Albumin [Mass/Vol] 3.4 g/dL Normal 3.4-5.0 [facility] Comment on above: Performed By: #### H STROPN #### [facility] [address] [place] [address] Dr. Con Santana Albumin/Globulin [Mass ratio] 1.1 {ratio} Normal [facility] Comment on above: Performed By: #### H STROPN #### [facility] [address] [place] [address] Dr. Con Santana ALP [Catalytic activity/Vol] 95 U/L Normal 46-116 [facility] Comment on above: Performed By: #### H STROPN #### [facility] [address] [place] [address] Dr. Con Santana ALT [Catalytic activity/Vol] 22 U/L Normal 14-59 [facility] Comment on above: Performed By: #### H STROPN #### [facility] [address] [place] [address] Dr. Con Santana Anion gap [Moles/Vol] 13.1 mmol/L Normal [facility] Comment on above: Performed By: #### H STROPN #### [facility] [address] [place] [address] Dr. Con Santana AST [Catalytic activity/Vol] U/L Critically low 15-37 [facility] Comment on above: Performed By: #### H STROPN #### [facility] [address] [address] [address] Con Santana Bilirubin [Mass/Vol] 0.4 mg/dL Normal 0.2-1.0 [facility] Comment on above: Performed By: #### H STROPN #### [facility] [address] [address] [address] Con Santana Calcium [Mass/Vol] 8.5 mg/dL Normal 8.5-10.1 [facility] Comment on above: Performed By: #### H STROPN #### [facility] [address] [address] [address] Con Sanatna Chloride [Moles/Vol] 107 mmol/L Normal 98-107 [facility] Comment on above: Performed By: #### H STROPN #### [facility] [address] [address] [address] Con Santana CO2 [Moles/Vol] 22.5 mmol/L Normal 21.0-32.0 [facility] Comment on above: Performed By: #### H STROPN #### [facility] [address] [address] [address] Con Santana Creatinine [Mass/Vol] 0.85 mg/dL Normal 0.55-1.02 [facility] Comment on above: Performed By: #### H STROPN #### [facility] [address] [place] [address] Dr. Con Santana EGFR-AF SLOVENIAN >60 Normal >=60 [facility] Comment on above: Performed By: #### H STROPN #### [facility] [address] [address] [address] Con Santana EGFR-NON AF SLOVENIAN >60 Normal >=60 [facility] Comment on above: Performed By: #### H STROPN #### [facility] [address] [address] [address] Con Santana Globulin (S) [Mass/Vol] 3.2 g/dL Normal [facility] Comment on above: Performed By: #### H STROPN #### [facility] [address] [address] [address] Con Santana Glucose [Mass/Vol] 131 mg/dL Critically high 74-106 [facility] Comment on above: Performed By: #### H STROPN #### [facility] [address] [address] [address] Con Santana Potassium [Moles/Vol] 3.6 mmol/L Normal 3.5-5.1 [facility] Comment on above: Performed By: #### H STROPN #### [facility] [address] [address] [address] Con Santana Protein [Mass/Vol] 6.6 g/dL Normal 6.4-8.2 [facility] Comment on above: Performed By: #### H STROPN #### [facility] [address] [address] [address] Con Santana Sodium [Moles/Vol] 139 mmol/L Normal 136-145 [facility] Comment on above: Performed By: #### H STROPN #### [facility] [address] [address] [address] Con Santana Urea nitrogen [Mass/Vol] 15.0 mg/dL Normal 7.0-18.0 [facility] Comment on above: Performed By: #### H STROPN #### [facility] [address] [address] [address] Con Santana Urea nitrogen/Creatinine [Mass ratio] 17.6 mg/mg Normal [facility] Comment on above: Performed By: #### H STROPN #### [facility] [address] [address] [address] Con Santana PROTIMEon 12-20-2022 INR Coag (PPP) [Relative time] 1.08 {INR} Normal [facility] Comment on above: Performed By: #### H STROPN #### [facility] [address] [address] [address] Con Santana INR GUIDELINES SEE BELOW Normal [facility] Comment on above: Result Comment: CANDELARIA RED INR: 2.0 - 3.0 CONDITIONS NOT LISTED BELOW 2.5 - 3.5 FOR PROSTHETIC HEART VALVE REPLACEMENT 2.5 - 3.5 RECURRENT THROMBOSIS Performed By: #### H STROPN #### [facility] [address] [place] [address] Dr. Con Santana PT Coag (PPP) [Time] 11.4 s Normal 9.0-11.6 [facility] Comment on above: Performed By: #### H KATHERINEPN #### [facility] [address] [place] [address] Dr. Con Santana PTTon 12-20-2022 aPTT Coag (Bld) [Time] 30.8 s Normal 22.3-36.2 [facility] Comment on above: Performed By: #### H ARTURO #### [facility] [address] [place] [address] Dr. Con Santana URINE MICROSCOPIC ONLYon BACTERIA MODERATE Abnormal NONE SEEN [facility] Comment on above: Performed By: #### Anaya JAVIER UMICRO #### [facility] [address] [place] [address] Dr. Con Santana Bacteria identified Cx Nom (U) INDICATED Normal [facility] Comment on above: Performed By: #### Anaya JAVIER UMICRO #### [facility] [address] [place] [address] Dr. Con Santana CAST NONE SEEN Normal NONE SEEN [facility] Comment on above: Performed By: #### Anaya JAVIER UMICRO #### [facility] [address] [place] [address] Dr. Con Santana Crystals LM Nom (Urine sed) NONE SEEN Normal NONE SEEN [facility] Comment on above: Performed By: #### Anaya JAVIER UMICRO #### [facility] [address] [place] [address] Dr. Con Santana Epithelial cells LM Ql (Urine sed) FEW Abnormal NONE SEEN /RARE [facility] Comment on above: Performed By: #### Anaya JAVIER UMICRO #### [facility] [address] [place] [address] Dr. Con Santana MUCOUS NONE SEEN Normal NONE SEEN [facility] Comment on above: Performed By: #### E RUR, UMICRO #### [facility] [address] [address] [address] Con Santana RBC 2-5 Abnormal 0-2 [facility] Comment on above: Performed By: #### E RUR, UMICRO #### [facility] [address] [place], [place] [address] Dr. Con Santana WBC 20-50 Abnormal NONE SEEN [facility] Comment on above: Performed By: #### E RUR, UMICRO #### [facility] [address] [place], [place] [address] Dr. Con Santana XR CHEST 1 Von [...] ELEAZAR GUERRA Date: 2022-12-20 05:55 Normal [facility] XR DEXA BONE DENSITYon 07-10 XR DEXA BONE DENSITY DEXA Bone Density Study CLINICAL: Evaluate bone mineral density. Postmenopausal COMPARISON: None FINDINGS: The bone density study was assessed by dual-energy x-ray absorptiometry with the [employer] scanner. The test results are expressed in [...] MATI ATKINS Date: 2022-07-10 16:49 Normal [facility] BNPon 02-14-2022 Natriuretic peptide B (Bld) [Mass/Vol] 1479.0 pg/mL Normal <=1,800.0 [facility] Comment on above: Performed By: #### LISA INTERIANO #### [facility] [address] [place] [address] Dr. Con Santana CBC AUTO DIFFon 02-14-2022 BASO # 0.1 103/ul Normal 0.0-0.1 [facility] Comment on above: Performed By: #### C BC #### [facility] [address] [place] [address] Dr. Con Santana Basophils/100 WBC (Bld) 0.9 % Normal 0.2-2.0 [facility] Comment on above: Performed By: #### C BC #### [facility] [address] [place] [address] Dr. Con Santana EO # 1.0 103/ul Critically high 0.0-0.7 [facility] Comment on above: Performed By: #### C BC #### [facility] [address] [place] [address] Dr. Con Santana Eosinophils/100 WBC (Bld) 16.2 % Critically high 0.9-7.0 [facility] Comment on above: Performed By: #### C BC #### [facility] [address] [place] [address] Dr. Con Santana Erythrocyte distribution width (RBC) [Ratio] 12.7 % Normal 11.0-15.0 [facility] Comment on above: Performed By: #### C BC #### [facility] [address] [place] [address] Dr. Con Santana Hematocrit (Bld) [Volume fraction] 39.6 % Normal 36.0-48.0 [facility] Comment on above: Performed By: #### C BC #### [facility] [address] [place] [address] Dr. Con Santana Hemoglobin (Bld) [Mass/Vol] 12.9 g/dL Normal 12.0-16.0 [facility] Comment on above: Performed By: #### C BC #### [facility] [address] [place] [address] Dr. Con Santana IG # 0.02 10e3/ul Normal 0.00-0.03 [facility] Comment on above: Performed By: #### C BC #### [facility] [address] [place] [address] Dr. Con Santana IG % 0.3 % Normal 0.0-0.5 [facility] Comment on above: Performed By: #### C BC #### [facility] [address] [place] [address] Dr. Con Santana LYMPH # 2.6 103/ul Normal 1.2-3.8 [facility] Comment on above: Performed By: #### C BC #### [facility] [address] [place] [address] Dr. Con Santana Lymphocytes/100 WBC (Bld) 40.2 % Normal 20.5-60.0 [facility] Comment on above: Performed By: #### C BC #### [facility] [address] [place] [address] Dr. Con Santana MANUAL DIFF REQ NO Normal [facility] Comment on above: Performed By: #### C BC #### [facility] [address] [place] [address] Dr. Con Santana MCH (RBC) [Entitic mass] 31.5 pg Normal 26.7-34.0 [facility] Comment on above: Performed By: #### C BC #### [facility] [address] [place] [address] Dr. Con Santana MCHC (RBC) [Mass/Vol] 32.6 g/dL Normal 29.9-35.2 [facility] Comment on above: Performed By: #### C BC #### [facility] [address] [place] [address] Dr. Con Santana MCV (RBC) [Entitic vol] 96.6 fL Normal 81.0-99.0 [facility] Comment on above: Performed By: #### C BC #### [facility] [address] [place] [address] Dr. Con Santana MONO # 0.5 103/ul Normal 0.3-0.8 [facility] Comment on above: Performed By: #### C BC #### [facility] [address] [place] [address] Dr. Con Santana Monocytes/100 WBC (Bld) 8.4 % Normal 1.7-12.0 [facility] Comment on above: Performed By: #### C BC #### [facility] [address] [place] [address] Dr. Con Santana NEUT # 2.2 103/ul Normal 1.4-6.5 [facility] Comment on above: Performed By: #### C BC #### [facility] [address] [place] [address] Dr. Con Santana Neutrophils/100 WBC (Bld) 34.0 % Critically low 43.0-75.0 [facility] Comment on above: Performed By: #### C BC #### [facility] [address] [place] [address] Dr. Con Santana Platelet mean volume (Bld) [Entitic vol] 9.8 fL Normal 9.5-13.5 [facility] Comment on above: Performed By: #### C BC #### [facility] [address] [place] [address] Dr. Con Santana PLT 270 103/ul Normal 150-450 [facility] Comment on above: Performed By: #### C BC #### [facility] [address] [place] [address] Dr. Con Santana RBC 4.10 106/ul Critically low 4.20-5.40 [facility] Comment on above: Performed By: #### C BC #### [facility] [address] [place] [address] Dr. Con Santana WBC 6.3 103/ul Normal 4.0-11.0 [facility] Comment on above: Performed By: #### C BC #### [facility] [address] [place] [address] Dr. Con Santana Covid-19 PCR ([facility])on 01-27 SARS-CoV-2 (COVID-19) RNA JEANE+probe Ql (Unsp spec) Not detected Normal NOT DETECTED [facility] Comment on above: Result Comment: When diagnostic [...] for this test is supported by the [place] of Health and Human Service's declaration that [...] used). Performed By: #### C BC #### [facility] [address] [place] [address] Dr. Con Santana INFLUENZA A AND B [facility] 02-14 [facility] SEE BELOW Normal [facility] Comment on above: Result Comment: Nega tive for Flu A protein angiten. Infection due to Flu A cannot be ruled out. Flu A angiten in the sample may be below the detection limit of the test. Performed By: #### C BC #### [facility] [address] [place] [address] Dr. oCn Sant[facility] Normal [facility] Comment on above: Result Comment: Nega tive for Flu B protein antigen. Infection due to Flu B cannot be ruled out. Flu B antigen in the sample may be below the detection limit of the test. Performed By: #### C BC #### [facility] [address] [place] [address] Dr. Con Santana INFLUENZA A AG Negative Normal NEGATIVE SEE COMMENT [facility] Comment on above: Performed By: #### C BC #### [facility] [address] [place] [address] Dr. Con Santana INFLUENZA B AG Negative Normal NEGATIVE SEE COMMENT [facility] Comment on above: Performed By: #### C BC #### [facility] [address] [place] [address] Dr. Con Santana INTERNAL CONTROLS Within Normal Limits Normal Wi thin Normal Limits [facility] Comment on above: Performed By: #### C BC #### [facility] [address] [address] [address] Con Santana PROF 14(COMP METB)on 022 Albumin [Mass/Vol] 3.1 g/dL Critically low 3.4-5.0 [facility] Comment on above: Performed By: #### H STROPN #### [facility] [address] [address] [address] Con Santana Albumin/Globulin [Mass ratio] 1.0 {ratio} Normal [facility] Comment on above: Performed By: #### H STROPN #### [facility] [address] [place] [address] Dr. Con Santana ALP [Catalytic activity/Vol] 88 U/L Normal 46-116 [facility] Comment on above: Performed By: #### H STROPN #### [facility] [address] [address] [address] Con Santana ALT [Catalytic activity/Vol] 26 U/L Normal 14-59 [facility] Comment on above: Performed By: #### H STROPN #### [facility] [address] [place] [address] Dr. Con Santana Anion gap [Moles/Vol] 11.2 mmol/L Normal [facility] Comment on above: Performed By: #### H STROPN #### [facility] [address] [place] [address] Dr. Con Santana AST [Catalytic activity/Vol] 24 U/L Normal 15-37 [facility] Comment on above: Performed By: #### H STROPN #### [facility] [address] [address] [address] Con Santana Bilirubin [Mass/Vol] 0.6 mg/dL Normal 0.2-1.0 [facility] Comment on above: Performed By: #### H STROPN #### [facility] [address] [place] [address] Dr. Con Santana Calcium [Mass/Vol] 8.4 mg/dL Critically low 8.5-10.1 [facility] Comment on above: Performed By: #### H STROPN #### [facility] [address] [address] [address] Con Santana Chloride [Moles/Vol] 106 mmol/L Normal 98-107 [facility] Comment on above: Performed By: #### H STROPN #### [facility] [address] [address] [address] Con Santana CO2 [Moles/Vol] 27.0 mmol/L Normal 21.0-32.0 [facility] Comment on above: Performed By: #### H STROPN #### [facility] [address] [place] [address] Dr. Con Santana Creatinine [Mass/Vol] 0.71 mg/dL Normal 0.55-1.02 [facility] Comment on above: Performed By: #### H STROPN #### [facility] [address] [place] [address] Dr. Con Santana EGFR-AF SLOVENIAN >60 Normal >=60 [facility] Comment on above: Performed By: #### H STROPN #### [facility] [address] [place] [address] Dr. Con Santana EGFR-NON AF SLOVENIAN >60 Normal >=60 [facility] Comment on above: Performed By: #### H STROPN #### [facility] [address] [place] [address] Dr. Con Santana Globulin (S) [Mass/Vol] 3.1 g/dL Normal [facility] Comment on above: Performed By: #### H STROPN #### [facility] [address] [place] [address] Dr. Con Santana Glucose [Mass/Vol] 104 mg/dL Normal 74-106 [facility] Comment on above: Performed By: #### H STROPN #### [facility] [address] [place] [address] Dr. Con Santana Potassium [Moles/Vol] 3.2 mmol/L Critically low 3.5-5.1 [facility] Comment on above: Performed By: #### H STROPN #### [facility] [address] [address] [address] Cno Santana Protein [Mass/Vol] 6.2 g/dL Critically low 6.4-8.2 Th [facility] Comment on above: Performed By: #### H STROPN #### [facility] [address] [address] [address] Con Santana Sodium [Moles/Vol] 141 mmol/L Normal 136-145 [facility] Comment on above: Performed By: #### H STROPN #### [facility] [address] [address] [address] Con Santana Urea nitrogen [Mass/Vol] 13.0 mg/dL Normal 7.0-18.0 [facility] Comment on above: Performed By: #### H STROPN #### [facility] [address] [address] [address] Con Santana Urea nitrogen/Creatinine [Mass ratio] 18.3 mg/mg Normal [facility] Comment on above: Performed By: #### H STROPN #### [facility] [address] [address] [address] Con Santana TROPONIN, HIGH SENSITIVITYon 02-14-2022 HSTROP 20.9 pg/mL Normal 4.0-51.3 [facility] Comment on above: Result Comment: CUT- OFF POINTS HAVE BEEN ESTABLISHED BASED ON THE FOURTH UNIVERSAL DEFINITIONS OF MYOCARDIAL INFARCTION. THE UPPER REFERENCE LIMIT (URL) OF TROPONIN, DEFINED THE 99TH PERCENTILE OF cTnI DISTRIBUTION IN A REFERENCE POPULATION, HAS BEEN CONFIRMED THE DECISION THRESHOLD FOR WI DIAGNOSIS. Performed By: #### E RUR, UMICRO #### [facility] [address] [address] [address] Con Santana XR CHEST 1 Von [...] by: KAROL VARELA Date: 2022-02-14 09:36 Normal [facility] XR chest 2V*on 01-15-2019 XR chest 2V* [facility] [place] [address] [place] [address] XRay Report Signed Patient: Salome Dominguez MR#: [id number] : 1940 Acct:[id number] Age/Sex: 78 / F ADM Date: 01/15/19 Loc: XDUCLY Room: Type: [facility] Attending Dr: Jack JAMES Ordering Provider: [...] Maximiliano Campos M.D.01/15/2019 11:38 AM Dictation Location: [facility] Transcribed By: [facility] 01/15/19 1138 Dictated By: Maximiliano Campos II, MD 01/15/19 1137 Signed By: 01/15/19 1138 Normal [facility] XR SHOULDER RIGHT TRAUMA SER IESon 08-21-2017 XR SHOULDER RIGHT TRAUMA SERIES 08/21/2017 5:37 PMXR SHOULDER RIGHT TRAUMA SERIESINDICATION: Fall.COMPARISON: None availableFINDINGS: 2 views the right shoulder. Comminuted fracture of the humerus involving the greater tuberosity and surgical neck. Humeral head remains articulate with the glenoid.IMPRESSION: Proximal humerus fracture.Workstation ID:[id number]; right arm injury. Best images possible. Normal [facility] Vital Signs Date Time Vital Sign Value Performing Clinician Facility 10-12-2023 11:00-0500 Body height 158.75 cm Effie Jackman [facility] Other 10-12-2023 11:00-0500 Body mass index (BMI) [Ratio] 18.18 kg/m2 Effie Jackman [facility] Other 10-12-2023 11:00-0500 Body weight 45.81 kg Effie Jackman Other [facility] Other 10-12-2023 11:00-0500 Diastolic blood pressure 64 mm[Hg] Effie Jackman Other [facility] Other 10-12-2023 11:00-0500 SaO2% (BldA) [Mass fraction] 97 % Effie Jackman Other [facility] Other 10-12-2023 11:00-0500 Systolic blood pressure 118 mm[Hg] Effie Jackman Other [facility] Other Encounters Encounter Date Encounter Type Care Provider Facility Start: 04-11-2024 End: 04-11-2024 ambulatory [facility] Start: 04-05-2024 Evaluation and management of inpatient [facility] Start: 04-04-2024 Evaluation and management of inpatient [facility] Start: 04-04-2024 Evaluation and management of inpatient CAMILLE GRIFFIN [facility] Start: 04-01-2024 Emergency department patient visit FELICIA MEDINA [facility] Start: 04-01-2024 End: 04-05-2024 Evaluation and management of inpatient MIREYA TOLENTINO [facility] Start: 04-01-2024 End: 04-01-[facility] Start: 03-30-2024 End: 03-30-2024 ambulatory MICHAELA RICHARDSON Not Available Start: 03-22-2024 End: 03-22-2024 ambulatory JUANA MCDANIELS Not Available Start: 03-16-2024 End: 03-17-2024 ambulatory MICHAELA RICHARDSON Not Available Start: 12-31-2023 End: 12-31-2023 ambulatory MICHAELA Lewis RICHARDSON Not Available Start: 11-18-2023 End: 11-18-2023 ambulatory MICHAELA RICHARDSON Not Available Start: 10-27-2023 End: 10-27-2023 ambulatory Effie Augustina Other [facility] Other Start: 10-27-2023 Telephone encounter Effie Jackman [facility] Start: 10-16-2023 End: 10-16-2023 ambulatory Effie Jackman [facility] Other Start: 10-16-2023 Telephone encounter Effie Jackman [facility] Start: 10-15-2023 End: 10-15-2023 ambulatory Effie Jackman [facility] Other Start: 10-15-2023 Telephone encounter Effie Jackman [facility] Start: 10-12-2023 Office outpatient visit 25 minutes Effie Jackman [facility] Start: 10-12-2023 Telephone encounter Effie Jackman [facility] Start: 10-12-2023 End: 10-12-2023 ambulatory NICHOLAS H ABIGAIL [facility] Other Start: 10-01-2023 End: 10-01-2023 ambulatory MICHAELA RICHARDSON Not Available Start: 08-05-2023 End: 08-05-2023 ambulatory Effie Jackman Other [facility] Other Start: 08-05-2023 Telephone encounter Effie Jackman [facility] Start: 05-14-2023 End: 05-14-2023 ambulatory Effie Jackman Other [facility] Other Start: 05-14-2023 Telephone encounter Effie Jackman [facility] Start: 03-30-2023 End: 03-30-2023 ambulatory Effie Jackman Other [facility] Other Start: 03-30-2023 Telephone encounter Effie Jackman [facility] Start: 03-27-2023 End: 03-27-2023 ambulatory Effie Jackman Other [facility] Other Start: 03-27-2023 Telephone encounter Effie Jackman [facility] Start: 12-29-2022 End: 01-01-2023 Evaluation and management of inpatient DR JANI MORENO Facility:[facility] Start: 12-22-2022 End: 12-22-2022 Evaluation and management of inpatient DR JANI MORENO Facility:[facility] Start: 07-10-2022 End: 07-11-[address] JANI MORENO Facility:[facility] Start: 02-14-2022 End: 02-14-[address] JANI MORENO Facility:[facility] Start: 01-15-2019 End: 01-15-2019 Patient encounter procedure Jack Sanches Facility:[facility] Start: 11-20-2017 End: 11-21-2017 Ambulatory CHITO PHYSICIAN Facility:[facility] Start: 08-21-2017 End: 08-21-2017 Emergency department patient visit JACK PINA [facility] Start: 05-07-2017 End: 05-08-2017 Ambulatory DANIELLE COFFMAN Facility:[facility] Immunizations Immunization Date Immunization Notes Care Provider Roberta webb 07-03-2023 influenza, high dose seasonal, preservative-free Effie Jackman Other [facility] Other Payers Date Payer Category Payer Unknown [id number] 2017 Self-pay 2014 Unknown [id number] 2003 Medicare [id number] 1959 Unknown [id number] 1940 Unknown [id number] 2.16.84 [id number] 1940 Unknown [id number] 2.16.84 [id number] 1938 Unknown [id number] 2.16.84 [id number] 1938 Unknown [id number] 2.16.84 [id number] 1938 Unknown [id number] 2.16.84 [id number] 1938 Unknown [id number] 2.16.84 [id number] 1938 Unknown [id number] 2.16.84 [id number] 1938 Unknown [id number] 2.16.84 [id number] 1938 Unknown [id number] 2.16.84 [id number] 1938 Unknown [id number] 2.16.84 [id number] 1940 Unknown [id number] 2.16.840 .[id number] Medicare [id number] Unknown Unknown [id number] 2.16.84 [id number] Social History Date Type Detail Facility Unknown if ever smoked [facility] Other Sex Assigned At Sex Assigned At Bir th [facility] Other Clinical Notes 03-27-2023 to 04-11-2024 Note Date & Type Note Facility 04-11-2024 Note [facility] Note Reason for cardiology [...] nurse practitioner on 04/29/2020 Padmini Billings MD, [facility] 04-05-2024 Note Adult Nutrition Asse ssment: [...] subcutaneous, Daily levothyroxine, 75 mcg, oral, Daily ufjwer-dixgmxhv-seiqzgk, 1 capsule, oral, TID with meals metoprolol [...] Special Kitchen Request Once Comments: Zay 2 libyan toast, butter and syrup.turkey sausage, grits with brown sugar and butter, raspberry syriac,orange juice and coffee, cream and sugar 04/03/24 0826 04/02/24 1302 Special Kitchen Request Once Comments: Zay send hot roast beef sandwich, mashed potatoes and gravy, Chicken noodle soup, Ramos pie,diet cola, cottage cheese 04/02/24 1303 Meal Intakes: no meals recorded Nutrition Risk: High Nutrition Needs: Needs based on: actual body weight Calorie needs: 5422-2061 kcals/day based on Equation: 25-30 kcal/kg MSJ x 1,9=6082 flori Protein needs: 41-49 g/day based on [...] Hand Grasp: Weak L Hand Grasp: Weak (Fly Winder strength not assessed by RD) Treatment Plan: Continue liberalized diet Discussed with pt ways to increase nutrient density Boost+ vanilla or strawberry BID Mvi with iron Vit D level Contact the dietitian via [employer] chat [phone]-4P Thursday through Thursday or call extension [phone]. For weekends & holidays, the dietitian can be reached via pager [phone] from [phone]-3P. Unable to respond to [employer] messages on Thursday & . [facility] 04-05-2024 Note Hospital Medicine Discharge Summary [...] placement. Patient underwent implementation of dual-chamber pacemaker, [employer] on 04/04 and did fairly well. [...] Center 04/11/2024 9:40 AM [facility] 04[facility]29/[facility]24 1:40 PM Sammie Miles NP [facility] Your medication list START taking these [...] HYDROcodone-acetaminophen 5-325 mg tablet Commonly known as: Velpen Take 1 tablet by mouth every 6 [...] Creon 3,000-9,500- 15,000 unit capsule Generic drug: lfcjsz-bspeiiro-eonngsl levothyroxine 75 mcg tablet Commonly known as: Synthroid, Levoxyl Vitamin B-12 1,000 mcg tablet Generic drug: cyanocobalamin Where to Get Your Medications These medications were sent to [facility]/pharmacy #[id number] - [address] [place] [id number] doxycycline 100 mg capsule metoprolol succinate XL 25 mg 24 hr tablet You can get these medications from any pharmacy Bring a paper prescription for each of these medications HYDROcodone-acetaminophen 5-325 mg tablet Salome is allergic to psyllium. Disposition: Home-Health Care [facility] () Discharge Condition: Stable Code Status: Full [...] Tolentino MD Hospital Medicine 04/05/2024 12:16 PM [facility] 04-05-2024 Note Occupational Therapy Occupational Therapy [...] at home . Implantation of dual chamber PPM([employer]): submuscular implant 04/04/24 General Subjective: friendly and cooperative questionable reliability as an accurate historian Patient Active Problem List Diagnosis Abdominal pain, left lower quadrant Acute combined systolic and diastolic heart failure ([facility]/HCC) Age related osteoporosis Dementia ([facility]/HCC) Anxiety disorder, unspecified Asymptomatic varicose veins Ataxic gait Bacterial overgrowth syndrome Biliary cirrhosis (CMS/HCC) Bladder atonia Cardiomegaly Chronic fatigue, unspecified Chronic insomnia Chronic obstructive pulmonary disease with (acute) exacerbation (CMS/HCC) Coronary atherosclerosis Decreased estrogen level Diabetes mellitus (CMS/HCC) Diarrhea Diastolic dysfunction Disease of tricuspid valve Mitral valve disorder Embolism and thrombosis ([facility]/HCC) Essential (primary) hypertension Frequent falls Gastro-esophageal reflux [...] feet Other seborrheic keratosis Paroxysmal atrial fibrillation ([facility]/HCC) Pure hypercholesterolemia Restless legs syndrome Sensorineural hearing loss, bilateral Transient cerebral ischemia Bradycardia Complete heart block ([facility]/HCC) Murmur, heart SERRANO (dyspnea on exertion) Third degree heart block ([facility]) Past Medical History: Diagnosis Date Abnormal ECG Alzheimer disease (CMS/HCC) Asthma Atrial fibrillation (CMS/HCC) Bradycardia COPD (chronic obstructive pulmonary disease) (CMS/HCC) Dementia ([facility]/HCC) Hypothyroidism RLS (restless legs syndrome) Past Surgical [...] function) General Assessment General Assessment Hearing: (mild hughes) Hand Dominance: Right Home Living Home Living Type of Home: Senior apartment ([facility]) Lives With: Spouse Home Adaptive Equipment: Walker rolling, Cane (sc, gb, hhs) Home Layout: One level Home Access: Level entry Bathroom Shower/Tub: Walk-in shower Prior Level of Function Prior Function Level of [place]: Independent with ADLs and functional transfers, Independent [...] Sensation [employer] (more content not included)... [facility] 04-05-2024 Note [facility] CARDIOLOGY INPAT IENT [...] patient plan for outpatient ischemic workup. Tele: [facility], ALLERGIES Allergies Allergen Reactions Psyllium Anaphylaxis, Rash and Unknown CURRENT MEDS doxycycline, 100 mg, oral, BID enoxaparin, 40 mg, subcutaneous, Daily levothyroxine, 75 mcg, oral, Daily jowmvl-iefumhyk-jbyhvmj, 1 capsule, oral, TID with meals olopatadine, [...] hyperinflation. Normal cardiomediastinal (more content not included)... [facility] 04-04-2024 Note DUAL CHAMBER PACEMAK ER IMPLANT PROCEDURE NOTE DATE OF PROCEDURE: 04/04/2024 PERFORMING PHYSICIAN: Dr. Issa Richards BOOK CRITIC: MIKE CONSENT: Patient LOCATION: Benefits Administrator PROCEDURE PERFORMED: 1. Implantation of dual chamber PPM([employer]): submuscular implant. 2. U/S venous access [...] presented to ER per recommendation of her medical artist because of bradycardia. Patient's daughter reports that [...] occasions using seldinger technique using a 5 German micropunture needle and exchanged for 0.034 wire. I decided to proceed with opening of the pocket. Localinfiltration of 1% Lidocaine was performed and an incision was created in the left upper chest. Dissection was then performed using cautery down. An active fixation [employer] pacing lead was then delivered via SPCC1 His sheath through the 9F sheath to the right ventricle. After confirmation of lead position on orthogonal views (CHIRINOS and NORTH KOREAN) to confirm position in the septal aspect, [...] three 0- Silk sutures. An active fixation [employer] RA pacing lead was then delivered through the 6Fsheath to the right atrial appendage. After confirmation of lead position on orthogonal views (CHIRINOS and NORTH [place]ORE[place]) to confirm position in the appendage, the screw was activated. After confirmation of good sensing parameters, injury pattern and pacing thresholds, 10V pacing was done and no diaphragmatic stimulation was noted. It was then secured in the pocket using three 1-0 Silk sutures. At this stage, given the good thresholds, the backup His lead was removed. The leads were then attached to a [employer] NOSTROMO ICT PPM device and the leads tug tested. [...] x 2 weeks Issa Richards Cardiac Electrophysiology [facility] 04-04-2024 Note Patient: Salome Stewart Procedure Information Date/Time: 04/04/24 1258 Procedure: Implant PPM Location: [facility] / [facility] (Cath) Providers: Issa Richards MD Clinical information reviewed: Tobacco Allergies Problems Med Hx Surg Hx OB Status Fam Hx Physical Exam Airway Mallampati: II TM distance: >3 FB Neck ROM: full Cardiovascular Dental Pulmonary Abdominal Anesthesia Plan ASA 2 CSE Anesthetic plan and risks discussed with patient. Use of blood products discussed with patient who. Additional Equipment Requests [facility] 04-04-2024 Note H&P reviewed. The lelia [...] have agreed to proceed with the procedure. [facility] 04-04-2024 Note Hospital Medicine Daily Progress Note - 04/04/2024 9:43 AM; Room: [facility]/3133- Admission: 04/01/2024 5:28 PM; Length of stay: 3 days THE HOSPITALIST TEAM PREFERS TO USE [employer] CHAT FOR COMMUNICATION 7AM-7PM. IF I DO NOT RESPOND WITHIN 15 MINUTES, PLEASE PAGE ME/CALL THROUGH THE MEAT CUTTING TEACHER. FROM 7PM-7AM, PLEASE PAGE [phone](COVR) Code Status: Full Code Barriers to Discharge: [...] dyspnea, orthopnea, pre-syncope, syncope). EKG taken at [place] on 02/10 showed first degree AV block [...] 11:30 PM 04/04/2024 8:00 AM Site Assessment Red;[place] VTE Prophylaxis: Lovenox Scheduled Meds ceFAZolin (Ancef) 1,000 mg, gentamicin (Garamycin) 80 mg in sodium chloride irrigation solution 0.9 % 500 mL IRRIGATION, , irrigation, Once ceFAZolin, 2 g, intravenous, Once enoxaparin, 40 mg, subcutaneous, Daily levothyroxine, 75 mcg, oral, Daily zxcubj-vcpkxkqg-tncxtsl, 1 capsule, oral, TID with meals olopatadine, [...] mg/dL 19 CREATI (more content not included)... [facility] 04-04-2024 Note -- Attestation signed by [...] Richards MD, 30 mL at 04/04/24 1328 ukbynq-eevlnpbk-fttpeec (Creon) 3,000-9,500- 15,000 unit per capsule 1 [...] Mirian Pelaez MD PGY3 Internal Medicine [facility] 04-03-2024 Note Hospital Medicine Daily Progress Note - 04/03/2024 12:05 PM; Room: [address] [place] [address] Admission: 04/01/2024 5:28 PM; Length of stay: 2 days THE HOSPITALIST TEAM PREFERS TO USE [employer] CHAT FOR COMMUNICATION 7AM-7PM. IF I DO NOT RESPOND WITHIN 15 MINUTES, PLEASE PAGE ME/CALL THROUGH THE MEAT CUTTING TEACHER. FROM 7PM-7AM, PLEASE PAGE [phone](COVR) Code Status: Full Code Barriers to Discharge: [...] 11:30 PM 04/03/2024 8:00 AM Site Assessment Red;[place] Red;[place] VTE Prophylaxis: Lovenox Scheduled Meds enoxaparin, 40 mg, subcutaneous, Daily levothyroxine, 75 mcg, oral, Daily cnnxoq-zpzmcgee-ofihhey, 1 capsule, oral, TID with meals pantoprazole, [...] FREET4 0.77 04/01/2024 No results found for: [id number] , IRON , TIBC , C3 , [...] Olmedo. Discharge Planning Signed Mireya Tolentino MD [facility] 04/03/2024 12:05 PM [facility] 04-03-2024 Note -- Attestation signed by [...] QT Interval 532 QTC CALCULATION(BAZETT) 411 P [place] 82 R-[place] -60 T Wave [place] 71 Impression Sinus rhythm with complete heart [...] Cardiology will follow along Orlando Valdez MD Regulatory Affairs Coordinator PGY-4 [facility] 04-02-2024 Note Hospital Medicine Daily Progress Note - 04/02/2024 11:29 AM; Room: [facility]/3133- Admission: 04/01/2024 5:28 PM; Length of stay: 1 days THE HOSPITALIST TEAM PREFERS TO USE [employer] CHAT FOR COMMUNICATION 7AM-7PM. IF I DO NOT RESPOND WITHIN 15 MINUTES, PLEASE PAGE ME/CALL THROUGH THE MEAT CUTTING TEACHER. FROM 7PM-7AM, PLEASE PAGE [phone](COVR) Code Status: Full Code Barriers to Discharge: [...] 11:30 PM 04/02/2024 9:00 AM Site Assessment Red;[place] Red;[place] VTE Prophylaxis: Lovenox Scheduled Meds [START ON [...] FREET4 0.77 04/01/2024 No results found for: [id number] , IRON , TIBC , C3 , [...] Tolentino MD Hospital Medicine 04/02/2024 11:29 AM [facility] 04-01-2024 Note Hospital Medicine History and Physical 04/01/2024 11:08 PM THE HOSPITALIST TEAM PREFERS TO USE [employer] FOR COMMUNICATION 7AM-7PM. IF I DO NOT RESPOND WITHIN 15 MINUTES, PLEASE PAGE ME/CALL THROUGH THE MEAT CUTTING TEACHER. FROM 7PM-7AM, PLEASE PAGE [phone](COVR) Chief Complaint Chief Complaint Patient presents with Bradycardia Pt sent by [place] [facility] for bradycardia. Pt c/o occasional SOB but denies being symptomatic otherwise. History of Present Illness Salome Dominguez is an 83 y.o. female who came from home with past medical history of hypothyroidism, anemia, COPD, aortic valve stenosis, asthma and dementia presented to ER per recommendation of her medical artist that the patient saw today because of [...] Date Noted Bradycardia 04/01/2024 Complete heart block ([facility]/HCC) 04/01/2024 Murmur, heart 04/01/2024 SERRANO (dyspnea on exertion) 04/01/2024 Third degree heart block (CMS/HCC) 04/01/2024 Dementia ([facility]/HCC) 03/15/2024 Hypothyroidism 03/15/2024 Long-term use of high-risk medication 03/15/2024 Lesion of skin of scalp 07/01/2023 Sensorineural hearing loss, bilateral 07/01/2023 Acute combined systolic and diastolic heart failure ([facility]/HCC) 06/30/2023 Chronic fatigue, unspecified 06/30/2023 Diabetes mellitus ([facility]/HCC) 06/30/2023 Essential (primary) hypertension 06/30/2023 Age related [...] Abdominal pain, lef (more content not included)... [facility] 04-01-2024 Note 04/01/242033 Financial Resource Strain [...] have you lived? 1 (Lives at [facility] [facility] w/ ) In the last 12 months, was there a time when you did not have a steady place to sleep or slept in a mcfp (including now)? N Transportation Needs In the [...] than 3 How often do you attend voodoo or anabaptist services? Never Do you belong to any clubs or organizations such as voodoo groups, unions, fraternal or athletic groups, or [...] In the past 12 months has the [employer], oil, or water [employer] threatened to shut off services in your home? No 04/01/242034 Referral Data Referral Source pupil personnel worker Referral Reason Psychosocial assessment Patient Information Primary Caregiver Private caregiver Accompanied by/Relationship Daughter Alexia, Kevin Activities of Daily Living Assistive Device Walker (uses sometimes) Living Arrangement (Current/Prior to Hospitalization) Private residence ([facility] independent living w/ ) Ambulation Minimum assistance (uses walker sometimes) Dressing Independent Feeding Independent Behavior Oriented (A&Ox4) Communication Can write;Talks;Understands speaking;Understands Romansh;Reads Income Information Income Source Unemployed (Retired) Discharge Planning Support Systems Spouse/significant other;Children ( Kevin; six daughters (Alexia, Kait, Donita, Jasmin, Doris, Savana); son Karol) Type of Residence Private residence;Home care staff Will patient need Precert for Post Acute needs? No Patient's goal for discharge Return to [facility] with continued BUTADIENE CONVERTER UTILITY OPERATOR Does the patient need discharge transport arranged? No Completed social work assessment and SDoH screening. Patient was A&Ox4 at this time. Patient's , Kevin, and daughter, Alexia, were currently present at bedside. Patient reported that she lives at [facility] with her . Patient identified her support system as her (Kevin), her six daughters (Alexia, Kait, Donita, Jasmin, Doris, and Savana), and her son (Karol). Patient endorsed that she is moderately socially active. Patient reported that she needs assistance with bathing, which is provided by one of her daughters or by her BUTADIENE CONVERTER UTILITY OPERATOR who visits 2x/week. Patient reported that she [...] any alcohol consumption or recreational drug use. [facility] 04-01-2024 Note [facility] Note Reason for cardiology [...] mood, affect, and judgement. Labs: 12/23/2023 at [facility] TSH 9.379., White blood count 4.6, hemoglobin [...] block, left a (more content not included)... [facility] 10-16-2023 Evaluation note Encounter Date Diagnosis Assessment Notes Sep, Hypokalemia (ICD-10 - E87.6) [facility] Other 01-18-2024 Evaluation note* Encounter Date Diagnosis Assessment Notes Treatment Notes Treatment Clinical Notes Sep, Other symptoms and signs involving appearance and behavior (ICD-10 - R46.89) [facility] Other 01-15-2024 Evaluation note* Encounter Date Diagnosis [...] Pt reinforced to take med as prescribed. [facility] Other 11-08-2023 Evaluation note* Encounter Date Diagnosis Assessment Notes Treatment Notes Treatment Clinical Notes Jul, Restless leg syndrome (ICD-10 - G25.81) [facility] Other 08-17-2023 Evaluation note* Encounter Date Diagnosis Assessment Notes Treatment Notes Treatment Clinical Notes Apr, Chronic diarrhea (ICD-10 - K52.9) [facility] Other 06-30-2023 Evaluation note* Encounter Date Diagnosis Assessment Notes Treatment Notes Treatment Clinical Notes Feb, Moderate persistent asthma without complication (ICD-10 - J45.40) [facility] Other Evaluation noteNo InformationNort [employer] Other History general Narrative - Reported* Type Description Date Medical History Atrial fibrillation Medical History asthma Medical History arthritia Medical History insomnia Surgical History cholecystectomy Surgical History hysterectomy Surgical History appendectomy Surgical History bowel surgery Surgical History surgery on L fourth toe 08/2016 Hospitalization History pneumonia [facility] Other History general Narrative - Reported* Type Description Date Medical History Atrial fibrillation Medical History asthma Medical History arthritia Medical History insomnia Medical History Bladder stimulator Surgical History cholecystectomy Surgical History hysterectomy Surgical History appendectomy Surgical History bowel surgery Surgical History surgery on L fourth toe 08/2016 Hospitalization History pneumonia [facility] Other Summary Purpose Family History No Family [...] Directives Records Found Reason for Referral Reason [place] [facility] - Do cuments scanned from family. CT brain pending. Behavioral and safety concerns. Notes from family scanned into chart Diagnosis 1 Other symptoms and s igns involving cognitive functions and awareness (R41.89) Referral Organization [facility] Medical sophie Referring Provider First Name Effie Referring Provider Last Name Augustina Referring Provider Specialty Family [facility] Referred Organization [facility] Referred Address [address] [place], [place],[address] Referred Provider Specialty Neurology Referral Priority Routine Additional Source Comments INFORMATION SOURCE (unrecogn ized section and content) DATE CREATED AUTHOR 03/19/2018 [facility] DATE CREATED AUTHOR AUTHOR'S ORGANIZ ATION 03/24/2018 [facility] DATE CREATED AUTHOR AUTHOR'S ORGANIZ ATION 04/22/2018 [facility] DATE CREATED AUTHOR AUTHOR'S ORGANIZ ATION 01/16/2019 [facility] DATE CREATED AUTHOR AUTHOR'S ORGANIZ ATION 01/03/2023 [facility] DATE CREATED AUTHOR AUTHOR'S ORGANIZ ATION 04/01/2024 [facility] DATE CREATED AUTHOR AUTHOR'S ORGANIZ ATION 04/12/2024 [facility] REASON FOR VISIT (unrecogniz ed section and [...] BE BASED ON THE PRIMARY CLINICAL RECORDS. [employer] provides no warranty or guarantee of the accuracy or completeness of information in this document.
--- NOTE | 2024-05-21 15:13 | XR_ITS ---
The [address] [address] Patient Name: CECELIA VILLALPANDO MRN: [id number] date: 1940 Sex: F Assigned Patient Location: ER Current Patient Location: ER Accession/Order Number: [id number] Exam Date: 05/21/2024 15:20 Report Date: 05/21/2024 16:43 At the request of: MICHAEL BURTON Procedure: XR chest 1V EXAM: XR chest 1V HISTORY: sob COMPARISON: 05/15/2024 and earlier including chest x-ray and CT. TECHNIQUE: AP upright chest x-ray. FINDINGS: Lungs are hyperinflated with areas of chronic minimal 6 focal linear scarring. No consolidation, edema or other acute/new abnormality. Heart size and mediastinal contour stable normal for technique. Pacemaker leads without significant change. No pleural effusion or pneumothorax. XR/XR chest 1V IMPRESSION: Stable chest x-ray with chronic findings but no new or acute appearing lung abnormality. Electronically authenticated by: MAIKOL LOCO Date: 05/21/2024 16:43
--- NOTE | 2024-05-21 15:13 | ECG_ITS ---
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 4664 Twave abnormality, possible inferior ischemia 8101 Low QRS voltage in limb leads 9150 abnormal ECG Previous tracing w/ paced rhythm, can't exlude similar rhythm presently although not pacemaker spikes noted Electronically Signed On 05-22-2024 10:48:21 EDT by TERRY SERRATO
--- NOTE | 2024-05-21 15:19 | PC.NURSE ---
portable CXR at bedside at this time.
[2024-05-21] MEDS: METHYLPREDNISOLONE SOD SUCC PF 125 MG/2 ML VIAL IVP (15:36)
[2024-05-21 15:47] LABS: Basophils Percent Auto 0.2 % (0.2-2.0); Eosinophils Percent Auto 0.7 % (0.9-7.0); Hematocrit 34.6 % (36.0-48.0); Hemoglobin 10.9 g/dL (12.0-16.0); Immature Granulocytes Abs Auto 0.04 10^3/uL (0.00-0.03); Immature Granulocytes Pct Auto 0.7 % (0.0-0.5); Lymphocytes Percent Auto 16.2 % (20.5-60.0); Mean Corpuscular HGB Conc 31.5 g/dL (29.9-35.2); Mean Corpuscular Hemoglobin 30.9 pg (26.7-34.0); Mean Platelet Volume 9.3 fL (9.5-13.5); Monocytes Absolute Auto 0.7 10^3/uL (0.3-0.8); Monocytes Percent Auto 10.9 % (1.7-12.0); Neutrophils Absolute Auto 4.3 10^3/uL (1.4-6.5); Neutrophils Percent Auto 71.3 % (43.0-75.0); Platelet Count 213 10^3/uL (150-450); Red Blood Count 3.53 10^6/uL (4.20-5.40); Red Cell Distribution Width 16.1 % (11.0-15.0); White Blood Count 6.1 10^3/uL (4.0-11.0)
[2024-05-21 15:55] LABS: INR 1.11; Prothrombin Time 11.6 sec (9.0-11.6)
[2024-05-21 16:01] LABS: Alanine Aminotransferase 55 U/L (14-59); Albumin Globulin Ratio 1.1; Albumin Level 3.2 g/dL (3.4-5.0); Alkaline Phosphatase 70 U/L (46-116); Anion Gap 10.8; Aspartate Amino Transferase 30 U/L (15-37); BUN Creatinine Ratio 26.3; Bilirubin Total 0.4 mg/dL (0.2-1.0); Calcium 8.2 mg/dL (8.5-10.1); Carbon Dioxide 27.8 mmol/L (21.0-32.0); Chloride 101 mmol/L (98-107); Estimated GFR (African America >60 (>=60); Estimated GFR (Non-African Ame >60 (>=60); Globulin 2.9 g/dL; Glucose 97 mg/dL (74-106); Potassium 4.6 mmol/L (3.5-5.1); Sodium 135 mmol/L (136-145); Total Protein 6.1 g/dL (6.4-8.2)
[2024-05-21 16:05] LABS: Troponin I High Sensitivity 59.3 pg/mL (4.0-51.3)
--- NOTE | 2024-05-21 16:08 | PC.NURSE ---
pt assisted to bathroom via wheelchair at this time. pt independently used restroom and denied needs of assistance. pt was provided with new brief and assisted back into ED cart. pt expressed SOB with movement from wheelchair to ED cart. pt had pulse ox of 95% on RA with exertion. after two minutes resting on cart, pts pulse ox improved to 100% on RA. pt denies CP or associated symptoms.
[2024-05-21] MEDS: IPRATROPIUM/ALBUTEROL SULFATE 3 ML AMPUL.NEB IH ×2 (16:31→23:26)
--- NOTE | 2024-05-21 16:45 | PC.NURSE ---
RT was at bedside at this time for breathing treatment. pt states improvement of SOB after treatment. denies further needs at this time.
--- NOTE | 2024-05-21 17:08 | ED.GENADUL1 ---
HPI HPI - General Adult General Chief complaint: Shortness of Breath/Dyspnea Stated complaint: Shortness of breath Time Seen by Provider: 05/21/24 15:13 Source: patient Mode of arrival: Wheelchair Limitations: no limitations History of Present Illness HPI narrative: The patient is coming to the ER with a history of COPD as well as mild dementia and pacemaker, the patient mentioned that she woke up this morning with shortness of breath, she denies any chest pain chest pressure and she mentioned that this is the first time that it was shortness of breath that is severe all of a sudden, the patient did present to us almost 9 days ago for COPD but she was feeling better until this morning There was no history of cough and no other complaints Related Data Home Medications ?Medication ?Instructions ?Recorded ?Confirmed albuterol sulfate 90 mcg/actuation 2 puff inhalation DAILY 02/11/24 05/11/24 aerosol inhaler levothyroxine 75 mcg tablet 75 mcg PO DAILY 02/11/24 05/11/24 metoprolol succinate 25 mg 12.5 mg PO DAILY 05/11/24 05/11/24 tablet,extended release 24 hr Previous Rx's ?Medication ?Instructions ?Recorded levofloxacin 750 mg tablet 750 mg PO DAILY 5 days #5 tabs 05/15/24 prednisone 20 mg tablet 20 mg PO BID #10 tabs 05/15/24 Allergies Allergy/AdvReac Type Severity Reaction Status Date / Time psyllium [From Metamucil] Allergy Severe Hives Verified 09/22/23 16:18 Opioid HPI Opioid Management Most Recent Opioid Data: Last Pain Scale 0 05/15/24 13:36 Last Pain Intensity 0 05/14/24 09:40 Last Pain Assessment 05/15/24 13:36 Last ORT Total Score 0 05/11/24 00:37 Last ORT Risk Category Low Risk 05/11/24 00:37 Review of Systems ROS Status of ROS 10 or more systems reviewed and unremarkable except as noted in history and below [facility] Medical History (Updated 05/21/24 @ 17:50 by Meera Cuba MD) Abnormal CT scan, gastrointestinal tract ?R93.3 - Abnormal findings on diagnostic imaging of other parts of digestive tract (ICD-10) Ileus ?K56.7 - Ileus, unspecified (ICD-10) Abnormal CT of the abdomen ?R93.5 - Abnormal findings on diagnostic imaging of other abdominal regions, including retroperitoneum (ICD-10) Adult failure to thrive ?R62.7 - Adult failure to thrive (ICD-10) COPD (chronic obstructive pulmonary disease) ?J44.9 - Chronic obstructive pulmonary disease, unspecified (ICD-10) Shortness of breath ?R06.02 - Shortness of breath (ICD-10) Pacemaker ?Z95.0 - Presence of cardiac pacemaker (ICD-10) Asthma ?J45.909 - Unspecified asthma, uncomplicated (ICD-10) Surgical History History of cholecystectomy ?Z90.49 - Acquired absence of other specified parts of digestive tract (ICD-10) History of hysterectomy ?Z90.710 - Acquired absence of both cervix and uterus (ICD-10) History of appendectomy ?Z90.49 - Acquired absence of other specified parts of digestive tract (ICD-10) Social History Within the past year, how often did you have a drink containing alcohol: monthly or less Within the past year, how many standard drinks containing alcohol did you have on a typical day: 1 or 2 Within the past year, how often did you have six or more drinks on one occasion: never Total score: 0 Score interpretation: A score less than 3 is consistent with normal alcohol consumption. Smoking status: Never smoker Non-prescribed substance use: denies use Previous occupational history: retired Highest level of school completed/degree received: Associate degree: occupational, technical, vocational program Are you now , , , , never or living with a partner: Little interest or pleasure in doing things: not at all Feeling down, depressed, or hopeless: not at all Feel stressed/tense/nervous/anxious/difficulty sleeping: not at all Do you think of yourself as: straight/heterosexual Gender Identity: female Exam Narrative Exam Narrative: Nurses notes and vital signs reviewed and patient is not hypoxic. General: Well-appearing and in no apparent distress. Skin: Warm, dry, no pallor noted. No rash. Head: Normocephalic, atraumatic. Neck: Supple, non-tender. Eye: Pupils are equal, round and EOMI. No scleral icterus. Ears, Nose, Mouth, and Throat: TM are clear, no nasal mucosal hypertrophy. Oral mucosa is moist, no posterior oropharynx erythema, uvula is mid-line Cardiovascular: Regular Rate and Rhythm without murmur, gallop or rub. Respiratory: No accessory muscle use or respiratory distress. Lungs there is a distant breathing sound bilaterally Chest Wall: no tenderness Back: No midline thoracic or lumbar vertebral tenderness. No CVA tenderness Musculoskeletal: normal ROM, no calf or popliteal tenderness, no lower extremity edema/swelling GI: Abdomen is soft, non-distended. Normal bowel sounds. No masses appreciated. No tenderness to palpation. No rebound, guarding, or rigidity noted. Neurological: A&O x4. No cranial nerve dysfunction observed. No truncal ataxia. Moves all extremities. Sensation intact. Psychiatric: Cooperative and interactive. Normal mood and affect. Constitutional Vital Signs, click to edit/add: Last Vital Signs Temp 97.8 F 05/21/24 15:07 Pulse 97 H 05/21/24 16:31 Resp 24 H 05/21/24 16:31 BP 136/91 05/21/24 15:07 Pulse Ox 100 05/21/24 16:31 O2 Del Method Room Air 05/21/24 16:31 Course Vital Signs Vital signs: Vital Signs Temperature 97.8 F 05/21/24 15:07 Pulse Rate 109 H 05/21/24 15:07 Respiratory Rate 18 05/21/24 15:07 Blood Pressure 136/91 05/21/24 15:07 Pulse Oximetry 99 05/21/24 15:07 Oxygen Delivery Method Room Air 05/21/24 15:07 Temperature 97.8 F 05/21/24 15:07 Pulse Rate 97 H 05/21/24 16:31 Respiratory Rate 24 H 05/21/24 16:31 Blood Pressure 136/91 05/21/24 15:07 Pulse Oximetry 100 05/21/24 16:31 Oxygen Delivery Method Room Air 05/21/24 16:31 Medical Decision Making MDM Narrative Medical decision making narrative: The patient EKG showing a paced rhythm with a heart rate of 106 and no acute significant changes compared to the patient's last EKG done almost 9 days ago The patient chest x-ray showed no acute pathology CBC and chemistry showed no acute pathology as well but the troponin was elevated above 50 The patient was provided with aspirin 324 mg one-time in addition to also provided with Solu-Medrol as breathing treatment as a possible treatment for COPD as the main reason for the patient's symptoms initially But with the patient elevated troponin and the fact that she have multiple risk factors including her age The patient will be admitted for observation I did speak with Dr. Marshall and she agrees with above-mentioned plan Lab Data Labs: Lab Results 05/21/24 05/21/24 Range/Units 13:35 16:57 WBC 6.1 (4.0-11.0) 10^3/uL RBC 3.53 L (4.20-5.40) 10^6/uL Hgb 10.9 L (12.0-16.0) g/dL Hct 34.6 L (36.0-48.0) % MCV 98.0 (81.0-99.0) fL MCH 30.9 (26.7-34.0) pg MCHC 31.5 (29.9-35.2) g/dL RDW 16.1 H (11.0-15.0) % Plt Count 213 (150-450) 10^3/uL MPV 9.3 L (9.5-13.5) fL Neut % (Auto) 71.3 (43.0-75.0) % Lymph % (Auto) 16.2 L (20.5-60.0) % Irwin % (Auto) 10.9 (1.7-12.0) % Eos % (Auto) 0.7 L (0.9-7.0) % Baso % (Auto) 0.2 (0.2-2.0) % Neut # (Auto) 4.3 (1.4-6.5) 10^3/uL Lymph # (Auto) 1.0 L (1.2-3.8) 10^3/uL Irwin # (Auto) 0.7 (0.3-0.8) 10^3/uL Eos # (Auto) 0.0 (0.0-0.7) 10^3/uL Baso # (Auto) 0.0 (0.0-0.1) 10^3/uL Abs Immat Gran (auto) 0.04 H (0.00-0.03) 10^3/uL Imm/Tot Granulo (auto) 0.7 H (0.0-0.5) % PT 11.6 (9.0-11.6) sec INR 1.11 Sodium 135 L (136-145) mmol/L Potassium 4.6 (3.5-5.1) mmol/L Chloride 101 (98-107) mmol/L Carbon Dioxide 27.8 (21.0-32.0) mmol/L Anion Gap 10.8 BUN 20.0 H (7.0-18.0) mg/dL Creatinine 0.76 (0.55-1.02) mg/dL Est GFR ( Amer) >60 (>=60) Est GFR (Non-Af Amer) >60 (>=60) BUN/Creatinine Ratio 26.3 Glucose 97 (74-106) mg/dL Calcium 8.2 L (8.5-10.1) mg/dL Total Bilirubin 0.4 (0.2-1.0) mg/dL AST 30 (15-37) U/L ALT 55 (14-59) U/L Alkaline Phosphatase 70 (46-116) U/L Troponin I High Sens 59.3 H* 50.2 (4.0-51.3) pg/mL Total Protein 6.1 L (6.4-8.2) g/dL Albumin 3.2 L (3.4-5.0) g/dL Globulin 2.9 g/dL Albumin/Globulin Ratio 1.1 Discharge Plan Discharge Chief Complaint: Shortness of Breath/Dyspnea Clinical Impression: Acute dyspnea, Elevated troponin, COPD exacerbation Patient Disposition: Admitted as Observation Time of Disposition Decision: 17:50
[2024-05-21] MEDS: ASPIRIN 81 MG TAB.CHEW 324 MG PO (17:15)
[2024-05-21 17:26] LABS: Troponin I High Sensitivity 50.2 pg/mL (4.0-51.3)
--- NOTE | 2024-05-21 18:18 | PC.NURSE ---
pt aware of admission and is agreeable to stay. pt ready for admission at this time. called x1 with no response to update on pt status. pt made aware of unable to reach at this time.
--- OUTSIDE RECORDS SUMMARY | 2024-05-21 18:46 | XMS_ITS | CCD ---
Author Organization [facility] Care Team Providers Care Fan Blade Aligner Name Role Phone PHYSICIAN, DEFAULT Unavailable Unavailable PHYSICIAN, DEFAULT Unavailable Unavailable DANIELLE COFFMAN Unavailable Unavailable JACK PINA Unavailable Unavailable NONSTAFF, [facility] Unavailable Unavailable Jack Sanches [employer] TECHNICIAN-C Admitting UnavailJack Pandey [employer] TECHNICIAN-C Attending UnavailJani Paul Primary Care Unavailable JOSH, DR DARBY Primary Care Unavailable SHAIKH Joshua MARTINEZ Admitting Unavailable SHAIKH Joshua MARTINEZ Attending Unavailable CHARLIE, DR ELEAZAR Gr Consulting Unavailable ESME LARSON Consulting Unavailable SHAIKH Joshua MARTINEZ Consulting Unavailable [...] ., DR NIETO Attending Unavailable CHARLIE, DR ELEAZRA Gr Consulting Unavailable DOC ., LELIA OLIVARES [...] ISSA RICHARDS Referring Unavailable CAMILLE CONCEPCION Referring Unavailajay e PADMINI BILLINGS Attending Unavailable Allergies Allergy Classification Reported Allergen(s) Allergy Type Date of Onset Reaction(s) Facility (2 sources) levoFLOXacin; Translations: [LEVOFLOXACIN] Drug Allergy 08-07-2017 [facility] Repository (3 sources) psyllium; Translations: [PSYLLIUM] Drug Allergy 02-22-2009 [facility] Repository (11 sources) levoFLOXacin Drug Allergy 02-05-2016 hives [facility] Repository (1 source) Penicillin Drug Allergy [facility] Repository (11 sources) Psyllium Drug Allergy 03-03-2013 anaphylaxis [facility] Repository Medications Current Medications Medication Drug Class(es) Dates Sig (Normalized) Sig (Original) Acetaminophen (10 sources) Acetaminophen Active Albuterol (10 sources) beta2-Adrenergic Agonist Albuterol Sulfate HFA Active amylase 38496 unt / lipase 3000 unt / protease 9500 unt delayed release oral capsule (10 sources) take 7394-3275 [IU] by mouth three times daily at mealtime Creon 8588-1782 UNIT as directed Orally tid w meals [...] 3 Chronic Other aftercare (1 source) Other care home (current) drug therapy; Translations: [OTH CORRECTION CURRENT DRUG THERAPY] Onset: 3 Episodic Other [...] Translations: [SLEEP DISORDER UNSPECIFIED] Onset: 3 Episodic Residual codes; unclassified (1 source) Pain, unspecified; Translations: [Pain, unspecified] Onset: 4 Episodic Spondylosis; intervertebral disc disorders; other back [...] Onset: 7 Unclassified (1 source) Fall / 78350() Onset: 7 Unclassified (1 source) Arm Injury / 87239() Onset: 7 Unclassified (1 source) R06.02 - [...] Range Facility Office Visiton 04-11-2024 Follow-up visit [id number] Asia Dominguez 1940 F Date Provider Department Center 04/11/2024 [id number] PATEL [facility] Family History Problem Relation Age of Onset Stroke Mother Other Mother No Known Problems Father Family Status - Relation Status Age at Mother Father Level of Service:60872 MS POSTOP FOLLOW UP VISIT RELATED TO ORIGINAL PX Normal [facility] HEMOGLOBIN AND HEMATOCRIT, B LOODon 04-05-2024 Hematocrit (Bld) [Volume fraction] 29.6 % Low 36.0-48.[address] [facility] Comment on above: Performed By: #### L [id number] #### [facility] ([facility]) [address] [place] [address] Hemoglobin (Bld) [Mass/Vol] 9.8 g/dL Low 12.0-15.[address] [facility] Comment on above: Performed By: #### L [id number] #### [facility] ([facility]) [address] [place] [address] 30on 04-04-2024 30 The patient is Moderately [...] goals for the shift include stable vitals [facility] 30 Daily Case Managemen t Update Multidisciplinary rounds have been completed. Barriers to Discharge: Pending Clinical Course. Admitted with Third degree heart block-Planning PPM implantation today. Planning to Return [facility] at [facility] living with on discharge. Diet: Dietary Orders (From admission, onward) Start Ordered 04/04/24 0001 Diet NPO Diet effective midnight Comments: Sips with medications Question: Reason for NPO: Answer: Operation/Procedure 04/03/24 0744 04/03/24 1233 Special Kitchen Request Once Comments: Grilled cheese on wheat, vanilla ice, fruit cup, 2 diet coke 04/03/24 1235 04/03/24 0824 Special Kitchen Request Once Comments: Plz 2 spanish toast, butter and syrup.turkey sausage, grits with brown sugar and butter, raspberry algerian,orange juice and coffee, cream and sugar 04/03/24 0826 04/02/24 1302 Special Kitchen Request Once Comments: Plz send hot roast beef sandwich, mashed potatoes and gravy, Chicken noodle soup, Ramos pie,diet cola, cottage cheese 04/02/24 1303 Physician Expected Discharge Date: 04/05/2024 Discharge Delays: PT Six Click Score: 23 OT Six Click Score: PT Recommendations: OT Recommendations: New Consults: [facility] 30 The patient is Moderately Stable - Low risk of patient condition declining or worsening The patient's goals for the shift include comfort The clinical goals for the shift include Vss, safety Over the shift, the patient did not make progress toward the following goals. Barriers to progression include na. Recommendations to address these barriers include na. [facility] 30on 04-03-2024 30 The patient is Moderately Stable - Low risk of patient condition declining or worsening The patient's goals for the shift include comfort and rest The clinical goals for the shift include stable VS Over the shift, the patient did not make progress toward the following goals. Barriers to progression include na. Recommendations to address these barriers include na. [facility] 30 The patient is Moderately Stable - Low risk of patient condition declining or worsening The patient's goals for the shift include comfort and rest The clinical goals for the shift include stable VS Over the shift, the patient continues to make progress toward the following goals. [facility] 30on 04-02-2024 30 The patient is Moderately Stable - Low risk of patient condition declining or worsening The patient's goals for the shift include The clinical goals for the shift include vss Over the shift, the patient did not make progress toward the following goals. Barriers to progression include na. Recommendations to address these barriers include na. [facility] 30 The patient is Moderately Stable - Low risk of patient condition declining or worsening The patient's goals for the shift include The clinical goals for the shift include vss Over the shift, the patient continues to make progress toward the following goal. [facility] CONSULTon 04-02-2024 CONSULT --- Attestation signed by [...] QT Interval 532 QTC CALCULATION(BAZETT) 411 P [place] 82 R-[place] -60 T Wave [place] 71 Impression Sinus rhythm with complete heart [...] ECG 12 (more content not included)... Normal [facility] APTTon 04-01-2024 ACTIVATED PARTIAL THROMBOPLASTIN TIME IN PPP BY COAGULATION ASSAY 33.9 Seconds Normal 25.0-35.[address] [facility] Comment on above: Result Comment: Clin ical significance of the APTT is questionable in the presence of heparin. Performed By: #### L [id number] ####[facility] ([facility])[address] [place] [address] B-TYPE NATRIURETIC PEPTIDEon 04-01-2024 Natriuretic peptide B (Bld) [Mass/Vol] 566 pg/mL High 0-[address] [facility] Comment on above: Performed By: #### L [id number] #### [facility] ([facility]) [address] [place] [address] BASIC METABOLIC PANELon - Anion gap [Moles/Vol] 9 mmol/L Normal 7-[address] [facility] Comment on above: Performed By: #### L [id number] ####[facility] ([facility])[address] [place] [address] Calcium [Mass/Vol] 8.0 mg/dL Low 8.6-10.3 [facility] Comment on above: Performed By: #### L [id number] ####[facility] ([facility])[address] [place] [address] Chloride [Moles/Vol] 112 mmol/L High 98-[address] [facility] Comment on above: Performed By: #### L [id number] ####[facility] ([facility])[address] [place] [address] CO2 [Moles/Vol] 18 mmol/L Low 21-[address] [facility] Comment on above: Performed By: #### L [id number] ####[facility] ([facility])[address] [place] [address] Creatinine [Mass/Vol] 0.83 mg/dL Normal 0.60-1.[address] [facility] Comment on above: Performed By: #### L [id number] ####[facility] ([facility])[address] [place] [address] GLOMERULAR FILTRATION RATE ML/MIN/1.73 SQ M.PREDICTED 69.0 mL/min/1.73m*2 Normal >60.0 [facility] Comment on above: Result Comment: [facility]???s estimated glomerular filtration rate (eGFR) will no [...] of individuals. Performed By: #### L [id number] ####[facility] ([facility])[address] [place] [address] Glucose [Mass/Vol] 91 mg/dL Normal 70-100 [facility] Comment on above: Performed By: #### L [id number] ####[facility] ([facility])[address] [place] [address] Potassium [Moles/Vol] 4.3 mmol/L Normal 3.5-5.[address] [facility] Comment on above: Performed By: #### L [id number] ####[facility] ([facility])[address] [place] [address] Sodium [Moles/Vol] 135 mmol/L Low 136-145 [facility] Comment on above: Performed By: #### L [id number] ####[facility] ([facility])[address] [place] [address] Urea nitrogen [Mass/Vol] 19 mg/dL Normal 7-[address] [facility] Comment on above: Performed By: #### L [id number] ####[facility] ([facility])[address] [place] [address] UREA NITROGEN/CREATININE (MASS RATIO) IN SER/PLAS 22.[address] [facility] Comment on above: Performed By: #### L [id number] ####[facility] ([facility])[address] [place] [address] CBC WITH AUTO DIFFERENTIALon 04-01-2024 Basophils (Bld) [#/Vol] 0.04 10*3/uL Normal 0.00-0.[address] [facility] Comment on above: Performed By: #### L [id number] #### [facility] ([facility]) [address] [place] [address] Basophils/100 WBC (Bld) 1.0 % Normal 0.0-1.[address] [facility] Comment on above: Performed By: #### L [id number] #### [facility] ([facility]) [address] [place] [address] Eosinophils (Bld) [#/Vol] 0.56 10*3/uL High 0.00-0.[address] [facility] Comment on above: Performed By: #### L [id number] #### [facility] ([facility]) [address] [place] [address] Eosinophils/100 WBC (Bld) 13.9 % High 0.0-6.[address] [facility] Comment on above: Performed By: #### L [id number] #### [facility] ([facility]) [address] [place] [address] Erythrocyte distribution width (RBC) [Ratio] 14.2 % Normal 11.5-15.[address] [facility] Comment on above: Performed By: #### L [id number] #### [facility] ([facility]) [address] [place] [address] ERYTHROCYTE MEAN CORPUSCULAR HEMOGLOBIN CONCENTRATION (G/DL) BY AUTOMATED 31.3 g/dL Low 32.0-35.0 [facility] Comment on above: Performed By: #### L [id number] #### [facility] ([facility]) [address] [place] [address] Hematocrit (Bld) [Volume fraction] 31.3 % Low 36.0-48.[address] [facility] Comment on above: Performed By: #### L [id number] #### [facility] ([facility]) [address] [place] [address] Hemoglobin (Bld) [Mass/Vol] 9.8 g/dL Low 12.0-15.[address] [facility] Comment on above: Performed By: #### L [id number] #### [facility] ([facility]) [address] [place] [address] Immature granulocytes (Bld) [#/Vol] 0.00 10*3/uL Normal 0.00-0.[address] [facility] Comment on above: Performed By: #### L [id number] #### [facility] ([facility]) [address] [place] [address] Immature granulocytes/100 WBC (Bld) 0.0 % Normal 0.0-1.[address] [facility] Comment on above: Performed By: #### L [id number] #### [facility] ([facility]) [address] [place] [address] Lymphocytes (Bld) [#/Vol] 1.85 10*3/uL Normal 1.20-4.[address] [facility] Comment on above: Performed By: #### L [id number] #### [facility] ([facility]) [address] [place] [address] Lymphocytes/100 WBC (Bld) 45.9 % High 20.0-45.[address] [facility] Comment on above: Performed By: #### L [id number] #### [facility] ([facility]) [address] [place] [address] MCH (RBC) [Entitic mass] 30.9 pg Normal 27.0-33.[address] [facility] Comment on above: Performed By: #### L [id number] #### [facility] ([facility]) [address] [place] [address] MCV (RBC) [Entitic vol] 98.7 fL High 82.0-98.[address] [facility] Comment on above: Performed By: #### L [id number] #### [facility] ([facility]) [address] [place] [address] Monocytes (Bld) [#/Vol] 0.45 10*3/uL Normal 0.10-1.[address] [facility] Comment on above: Performed By: #### L [id number] #### [facility] ([facility]) [address] [place] [address] Monocytes/100 WBC (Bld) 11.2 % Normal 5.0-12.[address] [facility] Comment on above: Performed By: #### L [id number] #### [facility] ([facility]) [address] [place] [address] Neutrophils (Bld) [#/Vol] 1.13 10*3/uL Low 1.60-7.[address] [facility] Comment on above: Performed By: #### L [id number] #### [facility] ([facility]) [address] [place] [address] Neutrophils/100 WBC (Bld) 28.0 % Low 40.0-72.[address] [facility] Comment on above: Performed By: #### L [id number] #### [facility] ([facility]) [address] [place] [place] [address] NRBC (PER 100 WBCS) BY AUTOMATED COUNT 0.0 % Normal [address] [facility] Comment on above: Performed By: #### L [id number] #### [facility] ([facility]) [address] [place] [address] PLATELETS (10*3/UL) IN BLOOD AUTOMATED COUNT 177 10*3/uL Normal 150-[address] [facility] Comment on above: Performed By: #### L [id number] #### [facility] ([facility]) [address] [place] [address] RBC (Bld) [#/Vol] 3.17 10*6/uL Low 3.80-5.[address] [facility] Comment on above: Performed By: #### L [id number] #### [facility] ([facility]) [address] [place] [address] WBC (Bld) [#/Vol] 4.03 10*3/uL Normal 4.00-10.[address] [facility] Comment on above: Performed By: #### L [id number] #### [facility] ([facility]) [address] [place] [address] EDPROVon 04-01-2024 EDPROV --- Attestation signed by Felicia Medina DO at 04/02/2024 3:16 PM 2022 Emergency Medicine Coding Guide from [employer] on 04/02/2024 All calculations should be rechecked [...] Patient presents with Bradycardia Pt sent by [facility]ology for bradycardia. Pt c/o occasional SOB but denies being symptomatic otherwise. HPI 83-year-old female with history of Alzheimer disease, asthma, A-fib, COPD, and hypothyroidism presenting due to concerns of third-degree heart block. Patient evaluated at wind commissioning technician office today after patient was found to be bradycardic at neurologist office. Per cardiology patient was in third-degree heart block and sent to be evaluated for possible pacemaker placement. Patient states that she feels tired all the time but denies any other symptoms with it. Ricardo Coma Scale Score: 15 Patient History Past Medical History: Diagnosis Date Abnormal ECG Alzheimer disease ([facility]) Asthma Atrial fibrillation ([facility]) Bradycardia COPD (chronic obstructive pulmonary disease) ([facility]) Dementia ([facility]) Hypothyroidism RLS (restless legs syndrome) Past [...] 1843 Rate: 36 Rhythm: 3rd degree block [place]: LAD QRS: 142 MS: n/a Qtc: 411 Other findings: TWI in V3 [TS] ED Course User Index [TS] Felicia Medina DO Diagnoses as of 04/01/242002 Third degree heart block (CMS/HCC) Medical Decision Making Reviewed patie (more content not included)... Normal [facility] Office Visiton 04-01-2024 Follow-up visit [id number] Asia Dominguez 1940 F Date Provider Department Center 04/01/2024 [id number]-YJXRXZPADMINI BILLINGS [facility] Family History Problem Relation Age of Onset Stroke Mother Other Mother No Known Problems Father Family Status - Relation Status Age at Mother Father Level of Service:70664 MS OFFICE/OUTPATIENT NEW MODERATE MDM 45 MINUTES Normal [facility] PROTIME-INRon 04-01-2024 INR IN PPP BY COAGULATION ASSAY 1.18 High 0.90-1.[address] [facility] Comment on above: Result Comment: ACCC P RECOMMENDED INR FOR WARFARIN THERAPY CONDITION [...] 1995;108:231S-246S. Performed By: #### L [id number] #### [facility] [employer]) [address] [place] [address] PROTHROMBIN TIME (PT) IN PPP BY COAGULATION ASSAY 15.0 Seconds High 12.3-14.[address] [facility] Comment on above: Performed By: #### L [id number] #### [facility] [employer] [address] [place] [address] T4, FREEon 04-01-2024 THYROXINE (T4) FREE (NG/DL) IN SER/PLAS 0.77 ng/dL Normal 0.71-1.85 [facility] Comment on above: Performed By: #### L [id number] ####[facility] [employer])[address] [place] [address] TROPONIN Ion 04-01-2024 Troponin I.cardiac [Mass/Vol] 0.04 ng/mL Normal 0.00-0.[address] [facility] Comment on above: Performed By: #### L [id number] #### [facility] ([facility]) [address] [place] [address] TSH3 REFLEX TO FT4on 024 THYROTROPIN (MIU/L) IN SER/PLAS BY DETECTION LIMIT <= 0.05 MIU/L 6.13 mIU/L High 0.34-5.[address] [facility] Comment on above: Performed By: #### L [id number] #### [facility] ([facility]) [address] [place] [address] CULTURE URINEon 01-02-2023 CULTURE URINE Isolate 1 [...] R F Nitrofurantoin <=16 S F Normal [facility] Comment on above: Performed By: #### C BC #### [facility] [address] [place] [address] Dr. Con Santana BNPon 01-01-2023 Natriuretic peptide B (Bld) [Mass/Vol] 6147.0 pg/mL Critically high <=1,800.0 [facility] Comment on above: Performed By: #### H STROPN #### [facility] [address] [place] [address] Dr. Con Santana CBC AUTO DIFFon 01-01-2023 BASO # 0.0 103/ul Normal 0.0-0.1 [facility] Comment on above: Performed By: #### C BC #### [facility] [address] [place] [address] [address] Con Santana Basophils/100 WBC (Bld) 0.2 % Normal 0.2-2.0 [facility] Comment on above: Performed By: #### C BC #### [facility] [address] [place] [address] Dr. Con Santana EO # 0.0 103/ul Normal 0.0-0.7 [facility] Comment on above: Performed By: #### C BC #### [facility] [address] [place] [address] Dr. Con Santana Eosinophils/100 WBC (Bld) 0.0 % Critically low 0.9-7.0 [facility] Comment on above: Performed By: #### C BC #### [facility] [address] [place] [address] Dr. Con Santana Erythrocyte distribution width (RBC) [Ratio] 14.4 % Normal 11.0-15.0 [facility] Comment on above: Performed By: #### C BC #### [facility] [address] [place] [address] Dr. Con Santana Hematocrit (Bld) [Volume fraction] 28.5 % Critically low 36.0-48.0 [facility] Comment on above: Performed By: #### C BC #### [facility] [address] [place] [address] Dr. Con Santana Hemoglobin (Bld) [Mass/Vol] 9.1 g/dL Critically low 12.0-16.0 [facility] Comment on above: Performed By: #### C BC #### [facility] [address] [place] [address] Dr. Con Santana IG # 0.14 10e3/ul Critically high 0.00-0.03 [facility] Comment on above: Performed By: #### C BC #### [facility] [address] [place] [address] Dr. Con Santana IG % 1.1 % Critically high 0.0-0.5 [facility] Comment on above: Performed By: #### C BC #### [facility] [address] [place] [address] [address] Con Santana LYMPH # 0.9 103/ul Critically low 1.2-3.8 [facility] Comment on above: Performed By: #### C BC #### [facility] [address] [place] [address] Dr. Con Santana Lymphocytes/100 WBC (Bld) 7.3 % Critically low 20.5-60.0 [facility] Comment on above: Performed By: #### C BC #### [facility] [address] [address] [address] Con Santana MANUAL DIFF REQ NO Normal [facility] Comment on above: Performed By: #### C BC #### [facility] [address] [place] [address] Dr. Con Santana MCH (RBC) [Entitic mass] 31.1 pg Normal 26.7-34.0 [facility] Comment on above: Performed By: #### C BC #### [facility] [address] [place] [address] Dr. Con Santana MCHC (RBC) [Mass/Vol] 31.9 g/dL Normal 29.9-35.2 [facility] Comment on above: Performed By: #### C BC #### [facility] [address] [place] [address] Dr. Con Santana MCV (RBC) [Entitic vol] 97.3 fL Normal 81.0-99.0 [facility] Comment on above: Performed By: #### C BC #### [facility] [address] [place] [address] Dr. Con Santana MONO # 1.3 103/ul Critically high 0.3-0.8 [facility] Comment on above: Performed By: #### C BC #### [facility] [address] [place] [address] Dr. Con Santana Monocytes/100 WBC (Bld) 10.0 % Normal 1.7-12.0 [facility] Comment on above: Performed By: #### C BC #### [facility] [address] [place] [address] [address] Con Santana NEUT # 10.5 103/ul Critically high 1.4-6.5 [facility] Comment on above: Performed By: #### C BC #### [facility] [address] [place] [address] Dr. Con Santana Neutrophils/100 WBC (Bld) 81.4 % Critically high 43.0-75.0 [facility] Comment on above: Performed By: #### C BC #### [facility] [address] [place] [address] Dr. Con Santana Platelet mean volume (Bld) [Entitic vol] 10.5 fL Normal 9.5-13.5 [facility] Comment on above: Performed By: #### C BC #### [facility] [address] [place] [address] Dr. Con Santana PLT 179 103/ul Normal 150-450 [facility] Comment on above: Performed By: #### C BC #### [facility] [address] [place] [address] Dr. Con Santana RBC 2.93 106/ul Critically low 4.20-5.40 [facility] Comment on above: Performed By: #### C BC #### [facility] [address] [place] [address] Dr. Con Santana WBC 12.8 103/ul Critically high 4.0-11.0 [facility] Comment on above: Performed By: #### C BC #### [facility] [address] [place] [address] Dr. Con Santana POINT OF CARE GLUCOSEon Glucose [Mass/Vol] 97 mg/dL Normal 74-106 [facility] Comment on above: Performed By: #### C BC #### [facility] [address] [place] [address] Dr. Con Santana PROF CHEM 8 (BAS METB)on Anion gap [Moles/Vol] 14.3 mmol/L Normal [facility] Comment on above: Performed By: #### H STROPN #### [facility] [address] [address] [address] Con Santana Calcium [Mass/Vol] 7.2 mg/dL Critically low 8.5-10.1 [facility] Comment on above: Performed By: #### H STROPN #### [facility] [address] [address] [address] Con Santana Chloride [Moles/Vol] 108 mmol/L Critically high 98-107 [facility] Comment on above: Performed By: #### H STROPN #### [facility] [address] [address] [address] Con Santana CO2 [Moles/Vol] 22.6 mmol/L Normal 21.0-32.0 [facility] Comment on above: Performed By: #### H STROPN #### [facility] [address] [address] [address] Con Santana Creatinine [Mass/Vol] 1.08 mg/dL Critically high 0.55-1.02 [facility] Comment on above: Performed By: #### H STROPN #### [facility] [address] [address] [address] Con Santana EGFR-AF BRUNEIAN 59 mL/min/1.73m2 Critically low >=60 [facility] Comment on above: Performed By: #### H STROPN #### [facility] [address] [address] [address] Con Santana EGFR-NON AF BRUNEIAN 48 mL/min/1.73m2 Critically low >=60 [facility] Comment on above: Performed By: #### H STROPN #### [facility] [address] [address] [address] Con Santana Glucose [Mass/Vol] 100 mg/dL Normal 74-106 [facility] Comment on above: Performed By: #### H STROPN #### [facility] [address] [address] [address] Con Santana Potassium [Moles/Vol] 3.9 mmol/L Normal 3.5-5.1 [facility] Comment on above: Performed By: #### H STROPN #### [facility] [address] [address] [address] Con Santana Sodium [Moles/Vol] 141 mmol/L Normal 136-145 [facility] Comment on above: Performed By: #### H STROPN #### [facility] [address] [place] [address] Dr. Con Santana Urea nitrogen [Mass/Vol] 27.0 mg/dL Critically high 7.0-18.0 [facility] Comment on above: Performed By: #### H STROPN #### [facility] [address] [place] [address] Dr. Con Santana Urea nitrogen/Creatinine [Mass ratio] 25.0 mg/mg Normal [facility] Comment on above: Performed By: #### H STROPN #### [facility] [address] [place] [address] Dr. Con Santana BNPon 12-31-2022 Natriuretic peptide B (Bld) [Mass/Vol] 7148.0 pg/mL Critically high <=1,800.0 [facility] Comment on above: Performed By: #### H STROPN #### [facility] [address] [place] [address] Dr. Con Santana CBC W MANUAL DIFFon 01-01-20 23 ATYPICAL LYMPH # Normal [facility] Comment on above: Performed By: #### P OCGLUC #### [facility] [address] [place] [address] Dr. Con Santana ATYPICAL LYMPH % Normal [facility] Comment on above: Performed By: #### P OCGLUC #### [facility] [address] [place] [address] Dr. Con Santana BAND # 0.0 103/ul Normal 0.0-0.3 [facility] Comment on above: Performed By: #### P OCGLUC #### [facility] [address] [place] [address] Dr. Con Santana BAND % 0 % Normal 0-5 [facility] Comment on above: Performed By: #### P OCGLUC #### [facility] [address] [place] [address] Dr. Con Santana BASOM # 0.00 103/ul Normal 0.00-0.10 [facility] Comment on above: Performed By: #### P OCGLUC #### [facility] [address] [address] [address] Con Santana BASOM % 0.0 % Critically low 0.2-2.0 [facility] Comment on above: Performed By: #### P OCGLUC #### [facility] [address] [address] [address] Con Santana BLAST # Normal [facility] Comment on above: Performed By: #### P OCGLUC #### [facility] [address] [address] [address] Con Santana BLAST % Normal [facility] Comment on above: Performed By: #### P OCGLUC #### [facility] [address] [address] [address] Con Santana CORRECTED WBC Normal 4.0-11.0 [facility] Comment on above: Performed By: #### P OCGLUC #### [facility] [address] [address] [address] Con Santana EOS # 0.00 103/ul Normal 0.00-0.70 [facility] Comment on above: Performed By: #### P OCGLUC #### [facility] [address] [address] [address] Con Santana EOS% 0.0 % Critically low 0.9-7.0 [facility] Comment on above: Performed By: #### P OCGLUC #### [facility] [address] [address] [address] Con Santana HCT 27.8 % Critically low 36.0-48.0 [facility] Comment on above: Performed By: #### P OCGLUC #### [facility] [address] [address] [address] Con Santana HGB 9.0 g/dl Critically low 12.0-16.0 [facility] Comment on above: Performed By: #### P OCGLUC #### [facility] [address] [address] [address] Con Santana LYMPHM # 0.53 103/ul Critically low 1.20-3.80 [facility] Comment on above: Performed By: #### P OCGLUC #### [facility] [address] [address] [address] Con Santana LYMPHM% 5.0 % Critically low 20.5-60.0 [facility] Comment on above: Performed By: #### P OCGLUC #### [facility] [address] [address] [address] Con Santana MCH 31.0 pg Normal 26.7-34.0 [facility] Comment on above: Performed By: #### P OCGLUC #### [facility] [address] [address] [address] Con Santana MCHC 32.4 g/dl Normal 29.9-35.2 [facility] Comment on above: Performed By: #### P OCGLUC #### [facility] [address] [address] [address] Con Santana MCV 95.9 fL Normal 81.0-99.0 [facility] Comment on above: Performed By: #### P OCGLUC #### [facility] [address] [address] [address] oCn Santana METAMYELOCYTE # Normal [facility] Comment on above: Performed By: #### P OCGLUC #### [facility] [address] [address] [address] Con Santana METAMYELOCYTE % Normal [facility] Comment on above: Performed By: #### P OCGLUC #### [facility] [address] [address] [address] Con Santana MONOM# 0.11 103/ul Critically low 0.30-0.80 [facility] Comment on above: Performed By: #### P OCGLUC #### [facility] [address] [address] [address] Con Santana MONOM% 1.0 % Critically low 1.7-12.0 [facility] Comment on above: Performed By: #### P OCGLUC #### [facility] [address] [address] [address] Con Santana MPV 10.9 fL Normal 9.5-13.5 [facility] Comment on above: Performed By: #### P OCGLUC #### [facility] [address] [address] [address] Con Santana MYELOCYTE # Normal [facility] Comment on above: Performed By: #### P OCGLUC #### [facility] [address] [address] [address] Con Santana MYELOCYTE % Normal [facility] Comment on above: Performed By: #### P OCGLUC #### [facility] [address] [place] [address] Dr. Con Santana NRBC Normal [facility] Comment on above: Performed By: #### P OCGLUC #### [facility] [address] [address] [address] Con Santana PLT 184 103/ul Normal 150-450 [facility] Comment on above: Performed By: #### P OCGLUC #### [facility] [address] [address] [address] Con Santana RBC 2.90 106/ul Critically low 4.20-5.40 [facility] Comment on above: Performed By: #### P OCGLUC #### [facility] [address] [address] [address] Con Santana RDW 14.5 % Normal 11.0-15.0 [facility] Comment on above: Performed By: #### P OCGLUC #### [facility] [address] [address] [address] Con Santana SEG # 9.96 103/ul Critically high 1.40-6.50 [facility] Comment on above: Performed By: #### P OCGLUC #### [facility] [address] [place] [address] Dr. Con Santana SEG % 94.0 % Critically high 43.0-75.0 [facility] Comment on above: Performed By: #### P OCGLUC #### [facility] [address] [address] [address] Con Santana WBC 10.6 103/ul Normal 4.0-11.0 [facility] Comment on above: Performed By: #### P OCGLUC #### [facility] [address] [address] [address] Con Santana POINT OF CARE GLUCOSEon Glucose [Mass/Vol] 145 mg/dL Critically high 74-106 [facility] Comment on above: Performed By: #### I NFLUAB #### [facility] [address] [address] [address] Con Santana Glucose [Mass/Vol] 162 mg/dL Critically high [facility]106 [facility] Comment on above: Performed By: #### E LISA JAVIER #### [facility] [address] [place] [address] Dr. Con Santana Glucose [Mass/Vol] 141 mg/dL Critically high 74-106 [facility] Comment on above: Performed By: #### C BC #### [facility] [address] [place] [address] Dr. Con Santana PROF CHEM 8 (BAS METB)on Anion gap [Moles/Vol] 16.5 mmol/L Normal [facility] Comment on above: Performed By: #### H STROPN #### [facility] [address] [place] [address] Dr. Con Santana Calcium [Mass/Vol] 7.3 mg/dL Critically low 8.5-10.1 [facility] Comment on above: Performed By: #### H STROPN #### [facility] [address] [place] [address] Dr. Con Santana Chloride [Moles/Vol] 108 mmol/L Critically high 98-107 [facility] Comment on above: Performed By: #### H STROPN #### [facility] [address] [place] [address] Dr. Con Santana CO2 [Moles/Vol] 18.5 mmol/L Critically low 21.0-32.0 [facility] Comment on above: Performed By: #### H STROPN #### [facility] [address] [address] [address] Con Santana Creatinine [Mass/Vol] 1.14 mg/dL Critically high 0.55-1.02 [facility] Comment on above: Performed By: #### H STROPN #### [facility] [address] [address] [address] Con Santana EGFR-AF BRUNEIAN 55 mL/min/1.73m2 Critically low >=60 [facility] Comment on above: Performed By: #### H STROPN #### [facility] [address] [place] [address] Dr. Con Santana EGFR-NON AF BRUNEIAN 45 mL/min/1.73m2 Critically low >=60 [facility] Comment on above: Performed By: #### H STROPN #### [facility] [address] [address] [address] Con Santana Glucose [Mass/Vol] 151 mg/dL Critically high 74-106 [facility] Comment on above: Performed By: #### H STROPN #### [facility] [address] [place] [address] Dr. Con Santana Potassium [Moles/Vol] 4.0 mmol/L Normal 3.5-5.1 [facility] Comment on above: Performed By: #### H STROPN #### [facility] [address] [address] [address] Con Santana Sodium [Moles/Vol] 139 mmol/L Normal 136-145 [facility] Comment on above: Performed By: #### H STROPN #### [facility] [address] [address] [address] Con Santana Urea nitrogen [Mass/Vol] 27.0 mg/dL Critically high 7.0-18.0 [facility] Comment on above: Performed By: #### H STROPN #### [facility] [address] [place] [address] Dr. Con Santana Urea nitrogen/Creatinine [Mass ratio] 23.7 mg/mg Normal [facility] Comment on above: Performed By: #### H STROPN #### [facility] [address] [place] [address] Dr. Con Santana XR CHEST 2 Von [...] ELEAZAR GUERRA Date: 2022-12-31 11:27 Normal [facility] BNPon 12-30-2022 Natriuretic peptide B (Bld) [Mass/Vol] 7840.0 pg/mL Critically high <=1,800.0 [facility] Comment on above: Performed By: #### I NFLUAB #### [facility] [address] [place] [address] Dr. Con Santana CBC AUTO DIFFon 12-30-2022 BASO # 0.0 103/ul Normal 0.0-0.1 [facility] Comment on above: Performed By: #### P OCGLUC #### [facility] [address] [place] [address] Dr. Con Santana Basophils/100 WBC (Bld) 0.2 % Normal 0.2-2.0 [facility] Comment on above: Performed By: #### P OCGLUC #### [facility] [address] [place] [address] Dr. Con Santana EO # 0.0 103/ul Normal 0.0-0.7 [facility] Comment on above: Performed By: #### P OCGLUC #### [facility] [address] [place] [address] Dr. Con Santana Eosinophils/100 WBC (Bld) 0.0 % Critically low 0.9-7.0 [facility] Comment on above: Performed By: #### P OCGLUC #### [facility] [address] [place] [address] Dr. Con Santana Erythrocyte distribution width (RBC) [Ratio] 13.6 % Normal 11.0-15.0 [facility] Comment on above: Performed By: #### P OCGLUC #### [facility] [address] [place] [address] Dr. Con Santana Hematocrit (Bld) [Volume fraction] 28.5 % Critically low 36.0-48.0 [facility] Comment on above: Performed By: #### P OCGLUC #### [facility] [address] [place] [address] Dr. Con Santana Hemoglobin (Bld) [Mass/Vol] 9.5 g/dL Critically low 12.0-16.0 [facility] Comment on above: Performed By: #### P OCGLUC #### [facility] [address] [place] [address] Dr. Con Santana IG # 0.09 10e3/ul Critically high 0.00-0.03 [facility] Comment on above: Performed By: #### P OCGLUC #### [facility] [address] [place] [address] Dr. Con Santana IG % 0.8 % Critically high 0.0-0.5 [facility] Comment on above: Performed By: #### P OCGLUC #### [facility] [address] [place] [address] Dr. Con Santana LYMPH # 0.8 103/ul Critically low 1.2-3.8 [facility] Comment on above: Performed By: #### P OCGLUC #### [facility] [address] [place] [address] Dr. Con Santana Lymphocytes/100 WBC (Bld) 6.9 % Critically low 20.5-60.0 [facility] Comment on above: Performed By: #### P OCGLUC #### [facility] [address] [place], [place] [id number] Dr. Con Santana MANUAL DIFF REQ NO Normal [facility] Comment on above: Performed By: #### P OCGLUC #### [facility] [address] [place] [address] Dr. Con Santana MCH (RBC) [Entitic mass] 31.3 pg Normal 26.7-34.0 [facility] Comment on above: Performed By: #### P OCGLUC #### [facility] [address] [place] [address] Dr. Con Santana MCHC (RBC) [Mass/Vol] 33.3 g/dL Normal 29.9-35.2 [facility] Comment on above: Performed By: #### P OCGLUC #### [facility] [address] [place] [address] Dr. Con Santana MCV (RBC) [Entitic vol] 93.8 fL Normal 81.0-99.0 [facility] Comment on above: Performed By: #### P OCGLUC #### [facility] [address] [place] [address] Dr. Con Santana MONO # 0.4 103/ul Normal 0.3-0.8 [facility] Comment on above: Performed By: #### P OCGLUC #### [facility] [address] [place] [address] Dr. Con Santana Monocytes/100 WBC (Bld) 3.1 % Normal 1.7-12.0 [facility] Comment on above: Performed By: #### P OCGLUC #### [facility] [address] [place] [address] Dr. Con Santana NEUT # 10.4 103/ul Critically high 1.4-6.5 [facility] Comment on above: Performed By: #### P OCGLUC #### [facility] [address] [place] [address] Dr. Con Santana Neutrophils/100 WBC (Bld) 89.0 % Critically high 43.0-75.0 [facility] Comment on above: Performed By: #### P OCGLUC #### [facility] [address] [place] [address] Dr. Con Santana Platelet mean volume (Bld) [Entitic vol] 10.8 fL Normal 9.5-13.5 [facility] Comment on above: Performed By: #### P OCGLUC #### [facility] [address] [address] [address] Con Santana PLT 189 103/ul Normal 150-450 [facility] Comment on above: Performed By: #### P OCGLUC #### [facility] [address] [address] [address] Con Santana RBC 3.04 106/ul Critically low 4.20-5.40 [facility] Comment on above: Performed By: #### P OCGLUC #### [facility] [address] [address] [address] Con Santana WBC 11.7 103/ul Critically high 4.0-11.0 [facility] Comment on above: Performed By: #### P OCGLUC #### [facility] [address] [address] [address] Con Santana POINT OF CARE GLUCOSEon 04-0 Glucose [Mass/Vol] 194 mg/dL Critically high 74-106 [facility] Comment on above: Performed By: #### C BC #### [facility] [address] [address] [address] Con Santana Glucose [Mass/Vol] 191 mg/dL Critically high 74-106 [facility] Comment on above: Performed By: #### I NFLUAB #### [facility] [address] [place] [address] Dr. Con Santana Glucose [Mass/Vol] 169 mg/dL Critically high 74-106 [facility] Comment on above: Performed By: #### P OCGLUC #### [facility] [address] [address] [address] Con Santana Glucose [Mass/Vol] 173 mg/dL Critically high 74-106 [facility] Comment on above: Performed By: #### I NFLUAB #### [facility] [address] [address] [address] Con Santana PROF CHEM 8 (BAS METB)on Anion gap [Moles/Vol] 18.8 mmol/L Normal [facility] Comment on above: Performed By: #### I NFLUAB #### [facility] [address] [place] [address] Dr. Con Santana Calcium [Mass/Vol] 7.3 mg/dL Critically low 8.5-10.1 [facility] Comment on above: Performed By: #### I NFLUAB #### [facility] [address] [address] [address] Con Santana Chloride [Moles/Vol] 109 mmol/L Critically high 98-107 [facility] Comment on above: Performed By: #### I NFLUAB #### [facility] [address] [place] [address] Dr. Con Santana CO2 [Moles/Vol] 17.3 mmol/L Critically low 21.0-32.0 [facility] Comment on above: Performed By: #### I NFLUAB #### [facility] [address] [place] [address] Dr. Con Santana Creatinine [Mass/Vol] 1.28 mg/dL Critically high 0.55-1.02 [facility] Comment on above: Performed By: #### I NFLUAB #### [facility] [address] [place] [address] Dr. Con Santana EGFR-AF BRUNEIAN 48 mL/min/1.73m2 Critically low >=60 [facility] Comment on above: Performed By: #### I NFLUAB #### [facility] [address] [address] [address] Con Santana EGFR-NON AF BRUNEIAN 40 mL/min/1.73m2 Critically low >=60 [facility] Comment on above: Performed By: #### I NFLUAB #### [facility] [address] [place] [address] Dr. Con Santana Glucose [Mass/Vol] 161 mg/dL Critically high 74-106 [facility] Comment on above: Performed By: #### I NFLUAB #### [facility] [address] [address] [address] Con Santana Potassium [Moles/Vol] 3.1 mmol/L Critically low 3.5-5.1 [facility] Comment on above: Performed By: #### I NFLUAB #### [facility] [address] [address] [address] Con Santana Sodium [Moles/Vol] 142 mmol/L Normal 136-145 [facility] Comment on above: Performed By: #### I NFLUAB #### [facility] [address] [place] [address] Dr. Con Santana Urea nitrogen [Mass/Vol] 24.0 mg/dL Critically high 7.0-18.0 [facility] Comment on above: Performed By: #### I NFLUAB #### [facility] [address] [place] [address] Dr. Con Santana Urea nitrogen/Creatinine [Mass ratio] 18.8 mg/mg Normal [facility] Comment on above: Performed By: #### I NFLUAB #### [facility] [address] [place] [address] Dr. Con Santana UA RANDOM W/MICROSCOPICon BACTERIA NONE SEEN Normal NONE SEEN [facility] Comment on above: Performed By: #### P OCGLUC #### [facility] [address] [place] [address] Dr. Con Santana Bilirubin Ql (U) Negative Normal NEGATIVE [facility] Comment on above: Performed By: #### P OCGLUC #### [facility] [address] [place] [address] Dr. Con Santana CAST NONE SEEN Normal NONE SEEN [facility] Comment on above: Performed By: #### P OCGLUC #### [facility] [address] [place] [address] Dr. Con Santana Clarity (U) CLEAR Normal CLEAR [facility] Comment on above: Performed By: #### P OCGLUC #### [facility] [address] [place] [address] Dr. Con Santana Color (U) LT. YELLOW Normal YELLOW [facility] Comment on above: Performed By: #### P OCGLUC #### [facility] [address] [address] [address] Con Santana Crystals LM Nom (Urine sed) NONE SEEN Normal NONE SEEN [facility] Comment on above: Performed By: #### P OCGLUC #### [facility] [address] [address] [address] Con Santana Epithelial cells LM Ql (Urine sed) FEW Abnormal NONE SEEN /RARE [facility] Comment on above: Performed By: #### P OCGLUC #### [facility] [address] [address] [address] Con Santana Glucose Ql (U) Negative Normal NEGATIVE [facility] Comment on above: Performed By: #### P OCGLUC #### [facility] [address] [place] [address] Dr. Con Santana Hemoglobin Ql (U) Negative Normal NEGATIVE [facility] Comment on above: Performed By: #### P OCGLUC #### [facility] [address] [address] [address] Con Santana Ketones Ql (U) Negative Normal NEGATIVE [facility] Comment on above: Performed By: #### P OCGLUC #### [facility] [address] [address] [address] Con Santana LEUKOCYTES TRACE Abnormal NEGATIVE [facility] Comment on above: Performed By: #### P OCGLUC #### [facility] [address] [address] [address] Con Santana MUCOUS NONE SEEN Normal NONE SEEN [facility] Comment on above: Performed By: #### P OCGLUC #### [facility] [address] [address] [address] Con Santana Nitrite Ql (U) Negative Normal NEGATIVE [facility] Comment on above: Performed By: #### P OCGLUC #### [facility] [address] [place] [address] Dr. Con Santana pH (U) 5.5 [pH] Normal 5-9 [facility] Comment on above: Performed By: #### P OCGLUC #### [facility] [address] [address] [address] Con Santana RBC 0-2 Normal 0-2 [facility] Comment on above: Performed By: #### P OCGLUC #### [facility] [address] [address] [address] Con Santana SPEC GRAVITY 1.010 Normal 1.005-<=1.025 [facility] Comment on above: Performed By: #### P OCGLUC #### [facility] [address] [address] [address] Con Santana UA PROTEIN Negative Normal NEGATIVE/ TRACE [facility] Comment on above: Performed By: #### P OCGLUC #### [facility] [address] [place] [address] Dr. Con Santana Urobilinogen Qn (U) 0.2 {Godfrey'U}/dL Normal 0.2 - 1. 0 [facility] Comment on above: Performed By: #### P OCGLUC #### [facility] [address] [address] [address] Con Santana WBC 2-5 Abnormal NONE SEEN [facility] Comment on above: Performed By: #### P OCGLUC #### [facility] [address] [place] [address] Dr. Con Santana XR CHEST 2 Von [...] ELEAZAR GUERRA Date: 2022-12-30 11:35 Normal [facility] BNPon 12-29-2022 Natriuretic peptide B (Bld) [Mass/Vol] 4120.0 pg/mL Critically high <=1,800.0 [facility] Comment on above: Performed By: #### E LISA JAVIER #### [facility] [address] [place] [address] Dr. Con Santana Natriuretic peptide B (Bld) [Mass/Vol] 3274.0 pg/mL Critically high <=1,800.0 [facility] Comment on above: Performed By: #### P OCGLUC #### [facility] [address] [place] [address] Dr. Con Santana CBC AUTO DIFFon 12-29-2022 BASO # 0.0 103/ul Normal 0.0-0.1 [facility] Comment on above: Performed By: #### C BC #### [facility] [address] [place] [address] Dr. Con Santana Basophils/100 WBC (Bld) 0.0 % Critically low 0.2-2.0 [facility] Comment on above: Performed By: #### C BC #### [facility] [address] [place] [address] Dr. Con Santana EO # 0.0 103/ul Normal 0.0-0.7 [facility] Comment on above: Performed By: #### C BC #### [facility] [address] [place] [address] Dr. Con Santana Eosinophils/100 WBC (Bld) 0.2 % Critically low 0.9-7.0 [facility] Comment on above: Performed By: #### C BC #### [facility] [address] [place] [address] Dr. Con Santana Erythrocyte distribution width (RBC) [Ratio] 13.6 % Normal 11.0-15.0 [facility] Comment on above: Performed By: #### C BC #### [facility] [address] [place] [address] Dr. Con Santana Hematocrit (Bld) [Volume fraction] 29.8 % Critically low 36.0-48.0 [facility] Comment on above: Performed By: #### C BC #### [facility] [address] [address] [address] Con Santana Hemoglobin (Bld) [Mass/Vol] 9.5 g/dL Critically low 12.0-16.0 [facility] Comment on above: Performed By: #### C BC #### [facility] [address] [address] [address] Con Santana IG # 0.05 10e3/ul Critically high 0.00-0.03 [facility] Comment on above: Performed By: #### C BC #### [facility] [address] [address] [address] Con Santana IG % 0.9 % Critically high 0.0-0.5 [facility] Comment on above: Performed By: #### C BC #### [facility] [address] [address] [address] Con Santana LYMPH # 0.7 103/ul Critically low 1.2-3.8 [facility] Comment on above: Performed By: #### C BC #### [facility] [address] [address] [address] Con Santana Lymphocytes/100 WBC (Bld) 13.0 % Critically low 20.5-60.0 [facility] Comment on above: Performed By: #### C BC #### [facility] [address] [place] [address] Dr. Con Santana MANUAL DIFF REQ NO Normal [facility] Comment on above: Performed By: #### C BC #### [facility] [address] [address] [address] Con Santana MCH (RBC) [Entitic mass] 30.5 pg Normal 26.7-34.0 [facility] Comment on above: Performed By: #### C BC #### [facility] [address] [place] [address] Dr. Con Santana MCHC (RBC) [Mass/Vol] 31.9 g/dL Normal 29.9-35.2 [facility] Comment on above: Performed By: #### C BC #### [facility] [address] [address] [address] Con Sanatna MCV (RBC) [Entitic vol] 95.8 fL Normal 81.0-99.0 [facility] Comment on above: Performed By: #### C BC #### [facility] [address] [address] [address] Con Santana MONO # 0.1 103/ul Critically low 0.3-0.8 [facility] Comment on above: Performed By: #### C BC #### [facility] [address] [address] [address] Con Santana Monocytes/100 WBC (Bld) 1.5 % Critically low 1.7-12.0 [facility] Comment on above: Performed By: #### C BC #### [facility] [address] [address] [address] Con Santana NEUT # 4.5 103/ul Normal 1.4-6.5 [facility] Comment on above: Performed By: #### C BC #### [facility] [address] [address] [address] Con Santana Neutrophils/100 WBC (Bld) 84.4 % Critically high 43.0-75.0 [facility] Comment on above: Performed By: #### C BC #### [facility] [address] [address] [address] oCn Santana Platelet mean volume (Bld) [Entitic vol] 10.3 fL Normal 9.5-13.5 [facility] Comment on above: Performed By: #### C BC #### [facility] [address] [address] [address] Con Santana PLT 178 103/ul Normal 150-450 [facility] Comment on above: Performed By: #### C BC #### [facility] [address] [address] [address] Con Santana RBC 3.11 106/ul Critically low 4.20-5.40 [facility] Comment on above: Performed By: #### C BC #### [facility] [address] [address] [address] Con Santana WBC 5.3 103/ul Normal 4.0-11.0 [facility] Comment on above: Performed By: #### C BC #### [facility] [address] [address] [address] Con Santana BASO # 0.0 103/ul Normal 0.0-0.1 [facility] Comment on above: Performed By: #### C BC #### [facility] [address] [place] [address] Dr. Con Santana Basophils/100 WBC (Bld) 0.1 % Critically low 0.2-2.0 [facility] Comment on above: Performed By: #### C BC #### [facility] [address] [place] [address] Dr. Con Santana EO # 0.4 103/ul Normal 0.0-0.7 [facility] Comment on above: Performed By: #### C BC #### [facility] [address] [place] [address] Dr. Con Santana Eosinophils/100 WBC (Bld) 5.9 % Normal 0.9-7.0 [facility] Comment on above: Performed By: #### C BC #### [facility] [address] [place] [address] Dr. Con Santana Erythrocyte distribution width (RBC) [Ratio] 13.5 % Normal 11.0-15.0 [facility] Comment on above: Performed By: #### C BC #### [facility] [address] [place] [address] Dr. Con Santana Hematocrit (Bld) [Volume fraction] 29.4 % Critically low 36.0-48.0 [facility] Comment on above: Performed By: #### C BC #### [facility] [address] [place] [address] Dr. Con Santana Hemoglobin (Bld) [Mass/Vol] 9.5 g/dL Critically low 12.0-16.0 [facility] Comment on above: Performed By: #### C BC #### [facility] [address] [address] [address] Con Santana IG # 0.04 10e3/ul Critically high 0.00-0.03 [facility] Comment on above: Performed By: #### C BC #### [facility] [address] [place] [address] Dr. Con Santana IG % 0.6 % Critically high 0.0-0.5 [facility] Comment on above: Performed By: #### C BC #### [facility] [address] [place] [address] Dr. Con Santana LYMPH # 1.1 103/ul Critically low 1.2-3.8 [facility] Comment on above: Performed By: #### C BC #### [facility] [address] [place] [address] Dr. Con Santana Lymphocytes/100 WBC (Bld) 15.7 % Critically low 20.5-60.0 [facility] Comment on above: Performed By: #### C BC #### [facility] [address] [place] [address] Dr. Con Santana MANUAL DIFF REQ NO Normal [facility] Comment on above: Performed By: #### C BC #### [facility] [address] [place] [address] Dr. Con Santana MCH (RBC) [Entitic mass] 31.3 pg Normal 26.7-34.0 [facility] Comment on above: Performed By: #### C BC #### [facility] [address] [place] [address] Dr. Con Santana MCHC (RBC) [Mass/Vol] 32.3 g/dL Normal 29.9-35.2 [facility] Comment on above: Performed By: #### C BC #### [facility] [address] [place] [address] Dr. Con Santana MCV (RBC) [Entitic vol] 96.7 fL Normal 81.0-99.0 [facility] Comment on above: Performed By: #### C BC #### [facility] [address] [place] [address] Dr. Con Santana MONO # 0.4 103/ul Normal 0.3-0.8 [facility] Comment on above: Performed By: #### C BC #### [facility] [address] [place] [address] Dr. Con Santana Monocytes/100 WBC (Bld) 5.9 % Normal 1.7-12.0 [facility] Comment on above: Performed By: #### C BC #### [facility] [address] [place] [address] Dr. Con Santana NEUT # 5.0 103/ul Normal 1.4-6.5 [facility] Comment on above: Performed By: #### C BC #### [facility] [address] [place] [address] Dr. Con Santana Neutrophils/100 WBC (Bld) 71.8 % Normal 43.0-75.0 [facility] Comment on above: Performed By: #### C BC #### [facility] [address] [place] [address] Dr. Con Santana Platelet mean volume (Bld) [Entitic vol] 10.0 fL Normal 9.5-13.5 [facility] Comment on above: Performed By: #### C BC #### [facility] [address] [place] [address] Dr. Con Santana PLT 173 103/ul Normal 150-450 [facility] Comment on above: Performed By: #### C BC #### [facility] [address] [place] [address] Dr. Con Santana RBC 3.04 106/ul Critically low 4.20-5.40 [facility] Comment on above: Performed By: #### C BC #### [facility] [address] [place] [address] Dr. Con Santana WBC 7.0 103/ul Normal 4.0-11.0 [facility] Comment on above: Performed By: #### C BC #### [facility] [address] [place] [address] Dr. Con Santana ECHOCARDIO M/2D COMPLETEon 0 12-29-2022 ECHOCARDIO M/2D COMPLETE Patient: SALOME DOMINGUEZ Exam Date: 12/29/2022 : 1940 Gender:F Ordering : SIVA CROSS Admission #: [id number] Family : DR MATHIASLAS MANUEL . Order #: [id number] CLICK HERE TO VIEW EXAM ECHOCARDIOGRAM REPORT [...] Varma M.D. on 01/01/2023 at 09:24 Normal [facility] LACTATE/LACTIC ACIDon 2022 Lactate [Moles/Vol] 0.6 mmol/L Normal 0.4-2.0 [facility] Comment on above: Performed By: #### C BC #### [facility] [address] [place] [address] Dr. Con Santana PH VENOUS BLOODon 12-29-2022 PCO2 VENOUS 34.6 mmHg Critically low 40.0-52.0 [facility] Comment on above: Performed By: #### C BC #### [facility] [address] [address] [address] Con Santana pH VENOUS 7.343 Normal 7.330-7.430 [facility] Comment on above: Performed By: #### C BC #### [facility] [address] [place] [address] Dr. Con Santana POINT OF CARE GLUCOSEon Glucose [Mass/Vol] 217 mg/dL Critically high -106 [facility] Comment on above: Performed By: #### C BC #### [facility] [address] [address] [address] Con Santana Glucose [Mass/Vol] 199 mg/dL Critically high -106 [facility] Comment on above: Performed By: #### C BC #### [facility] [address] [address] [address] Con Santana Glucose [Mass/Vol] 202 mg/dL Critically high -106 [facility] Comment on above: Performed By: #### P OCGLUC #### [facility] [address] [address] [address] Con Santana PROF 14(COMP METB)on 023 Albumin [Mass/Vol] 2.6 g/dL Critically low 3.4-5.0 [facility] Comment on above: Performed By: #### P OCGLUC #### [facility] [address] [place] [address] Dr. Con Santana Albumin/Globulin [Mass ratio] 1.1 {ratio} Normal [facility] Comment on above: Performed By: #### P OCGLUC #### [facility] [address] [address] [address] Con Santana ALP [Catalytic activity/Vol] 67 U/L Normal 46-116 [facility] Comment on above: Performed By: #### P OCGLUC #### [facility] [address] [address] [address] Con Santana ALT [Catalytic activity/Vol] 69 U/L Critically high 14-59 [facility] Comment on above: Performed By: #### P OCGLUC #### [facility] [address] [address] [address] Con Santana Anion gap [Moles/Vol] 15.0 mmol/L Normal [facility] Comment on above: Performed By: #### P OCGLUC #### [facility] [address] [address] [address] Con Santana AST [Catalytic activity/Vol] 24 U/L Normal 15-37 [facility] Comment on above: Performed By: #### P OCGLUC #### [facility] [address] [address] [address] Con Santana Bilirubin [Mass/Vol] 0.3 mg/dL Normal 0.2-1.0 [facility] Comment on above: Performed By: #### P OCGLUC #### [facility] [address] [address] [address] Con Santana Calcium [Mass/Vol] 7.4 mg/dL Critically low 8.5-10.1 [facility] Comment on above: Performed By: #### P OCGLUC #### [facility] [address] [address] [address] Con Santana Chloride [Moles/Vol] 110 mmol/L Critically high 98-107 [facility] Comment on above: Performed By: #### P OCGLUC #### [facility] [address] [address] [address] Con Santana CO2 [Moles/Vol] 21.1 mmol/L Normal 21.0-32.0 [facility] Comment on above: Performed By: #### P OCGLUC #### [facility] [address] [address] [address] Con Santana Creatinine [Mass/Vol] 0.79 mg/dL Normal 0.55-1.02 [facility] Comment on above: Performed By: #### P OCGLUC #### [facility] [address] [address] [address] Con Santana EGFR-AF BRUNEIAN >60 Normal >=60 [facility] Comment on above: Performed By: #### P OCGLUC #### [facility] [address] [address] [address] Con Santana EGFR-NON AF BRUNEIAN >60 Normal >=60 [facility] Comment on above: Performed By: #### P OCGLUC #### [facility] [address] [address] [address] Con Santana Globulin (S) [Mass/Vol] 2.3 g/dL Normal [facility] Comment on above: Performed By: #### P OCGLUC #### [facility] [address] [address] [address] Con Santana Glucose [Mass/Vol] 115 mg/dL Critically high 74-106 [facility] Comment on above: Performed By: #### P OCGLUC #### [facility] [address] [address] [address] Con Santana Potassium [Moles/Vol] 4.1 mmol/L Normal 3.5-5.1 [facility] Comment on above: Performed By: #### P OCGLUC #### [facility] [address] [address] [address] Con Santana Protein [Mass/Vol] 4.9 g/dL Critically low 6.4-8.2 [facility] Comment on above: Performed By: #### P OCGLUC #### [facility] [address] [address] [address] Con Santana Sodium [Moles/Vol] 142 mmol/L Normal 136-145 [facility] Comment on above: Performed By: #### P OCGLUC #### [facility] [address] [place] [address] Dr. Con Santana Urea nitrogen [Mass/Vol] 19.0 mg/dL Critically high 7.0-18.0 [facility] Comment on above: Performed By: #### P OCGLUC #### [facility] [address] [place] [address] Dr. Con Santana Urea nitrogen/Creatinine [Mass ratio] 24.1 mg/mg Normal [facility] Comment on above: Performed By: #### P OCGLUC #### [facility] [address] [place] [address] Dr. Con Santana PROF CHEM 8 (BAS METB)on Anion gap [Moles/Vol] 13.5 mmol/L Normal [facility] Comment on above: Performed By: #### TIM INTERIANORO #### [facility] [address] [place] [address] Dr. Con Santana Calcium [Mass/Vol] 7.6 mg/dL Critically low 8.5-10.1 [facility] Comment on above: Performed By: #### TIM INTERIANORO #### [facility] [address] [place] [address] Dr. Con Santana Chloride [Moles/Vol] 110 mmol/L Critically high 98-107 [facility] Comment on above: Performed By: #### Anaya JAVIER UMICRO #### [facility] [address] [place] [address] Dr. Con Santana CO2 [Moles/Vol] 18.7 mmol/L Critically low 21.0-32.0 [facility] Comment on above: Performed By: #### TIM INTERIANORO #### [facility] [address] [place] [address] Dr. Con Santana Creatinine [Mass/Vol] 0.79 mg/dL Normal 0.55-1.02 [facility] Comment on above: Performed By: #### Anaya JAVIER UMICRO #### [facility] [address] [place] [address] Dr. Con Santana EGFR-AF BRUNEIAN >60 Normal >=60 [facility] Comment on above: Performed By: #### LISA INTERIANO #### [facility] [address] [place] [address] Dr. Con Santana EGFR-NON AF BRUNEIAN >60 Normal >=60 [facility] Comment on above: Performed By: #### LISA INTERIANO #### [facility] [address] [place] [address] Dr. Con Santana Glucose [Mass/Vol] 155 mg/dL Critically high 74-106 [facility] Comment on above: Performed By: #### LISA INTERIANO #### [facility] [address] [place] [address] Dr. Con Santana Potassium [Moles/Vol] 4.2 mmol/L Normal 3.5-5.1 [facility] Comment on above: Performed By: #### LISA INTERIANO #### [facility] [address] [place] [address] Dr. Con Santana Sodium [Moles/Vol] 138 mmol/L Normal 136-145 [facility] Comment on above: Performed By: #### LISA INTERIANO #### [facility] [address] [place] [address] Dr. Con Santana Urea nitrogen [Mass/Vol] 21.0 mg/dL Critically high 7.0-18.0 [facility] Comment on above: Performed By: #### LISA INTERIANO #### [facility] [address] [place] [address] Dr. Con Santana Urea nitrogen/Creatinine [Mass ratio] 26.6 mg/mg Normal [facility] Comment on above: Performed By: #### TIM INTERIANORO #### [facility] [address] [place] [address] Dr. Con Santana PROTIMEon 12-29-2022 INR Coag (PPP) [Relative time] 1.00 {INR} Normal [facility] Comment on above: Performed By: #### P OCGLUC #### [facility] [address] [place] [address] Dr. Con Santana INR GUIDELINES SEE BELOW Normal [facility] Comment on above: Result Comment: CANDELARIA RED INR: 2.0 - 3.0 CONDITIONS NOT LISTED BELOW 2.5 - 3.5 FOR PROSTHETIC HEART VALVE REPLACEMENT 2.5 - 3.5 RECURRENT THROMBOSIS Performed By: #### P OCGLUC #### [facility] [address] [place] [address] Dr. Con Santana PT Coag (PPP) [Time] 10.6 s Normal 9.0-11.6 [facility] Comment on above: Performed By: #### P OCGLUC #### [facility] [address] [place] [address] Dr. Con Santana PTTon 12-29-2022 aPTT Coag (Bld) [Time] 28.2 s Normal 22.3-36.2 [facility] Comment on above: Performed By: #### I NFLUAB #### [facility] [address] [place] [address] Dr. Con Santana TROPONIN, HIGH SENSITIVITYon 12-29-2022 HSTROP 16.0 pg/mL Normal 4.0-51.3 [facility] Comment on above: Result Comment: CUT- OFF POINTS HAVE BEEN ESTABLISHED BASED ON THE FOURTH UNIVERSAL DEFINITIONS OF MYOCARDIAL INFARCTION. THE UPPER REFERENCE LIMIT (URL) OF TROPONIN, DEFINED THE 99TH PERCENTILE OF cTnI DISTRIBUTION IN A REFERENCE POPULATION, HAS BEEN CONFIRMED THE DECISION THRESHOLD FOR [place] DIAGNOSIS. Performed By: #### H STROPN #### [facility] [address] [place] [address] Dr. Con Santana HSTROP 23.6 pg/mL Normal 4.0-51.3 [facility] Comment on above: Result Comment: CUT- OFF POINTS HAVE BEEN ESTABLISHED BASED ON THE FOURTH UNIVERSAL DEFINITIONS OF MYOCARDIAL INFARCTION. THE UPPER REFERENCE LIMIT (URL) OF TROPONIN, DEFINED THE 99TH PERCENTILE OF cTnI DISTRIBUTION IN A REFERENCE POPULATION, HAS BEEN CONFIRMED THE DECISION THRESHOLD FOR [place] DIAGNOSIS. Performed By: #### P OCGLUC #### [facility] [address] [place] [address] Dr. Con Satnana XR CHEST 1 Von 12-29-2022 XR CHEST [...] TRINI CISNEROS Date: 2022-12-28 22:49 Normal [facility] Covid-19 PCR ([facility])on SARS-CoV-2 (COVID-19) RNA JEANE+probe Ql (Unsp spec) Not detected Normal NOT DETECTED [facility] Comment on above: Result Comment: When [...] for this test is supported by the [employer] of Health and Human Service's declaration that [...] used). Performed By: #### C VDTBH #### [facility] [address] [place] [address] Dr. Con Santana PH VENOUS BLOODon 12-28-2022 PCO2 VENOUS 40.4 mmHg Normal 40.0-52.0 [facility] Comment on above: Performed By: #### I NFLUAB #### [facility] [address] [place] [address] Dr. Con Santana pH VENOUS 7.297 Critically low 7.330-7.430 [facility] Comment on above: Performed By: #### I NFLUAB #### [facility] [address] [place] [address] Dr. Con Santana CBC W MANUAL DIFFon 12-23-19 23 ATYPICAL LYMPH # Normal [facility] Comment on above: Performed By: #### C BC #### [facility] [address] [place] [address] Dr. Con Santana ATYPICAL LYMPH % Normal [facility] Comment on above: Performed By: #### C BC #### [facility] [address] [place] [address] Dr. Con Santana BAND # 0.0 103/ul Normal 0.0-0.3 [facility] Comment on above: Performed By: #### C BC #### [facility] [address] [place] [address] Dr. Con Santana BAND % 0 % Normal 0-5 [facility] Comment on above: Performed By: #### C BC #### [facility] [address] [place] [address] Dr. Con Santana BASOM # 0.00 103/ul Normal 0.00-0.10 [facility] Comment on above: Performed By: #### C BC #### [facility] [address] [place] [address] Dr. Con Santana BASOM % 0.0 % Critically low 0.2-2.0 [facility] Comment on above: Performed By: #### C BC #### [facility] [address] [place] [address] Dr. Con Santana BLAST # Normal [facility] Comment on above: Performed By: #### C BC #### [facility] [address] [place] [address] Dr. Con Santana BLAST % Normal [facility] Comment on above: Performed By: #### C BC #### [facility] [address] [place] [address] Dr. Con Santana CORRECTED WBC Normal 4.0-11.0 [facility] Comment on above: Performed By: #### C BC #### [facility] [address] [address] [address] Con Santana EOS # 0.00 103/ul Normal 0.00-0.70 [facility] Comment on above: Performed By: #### C BC #### [facility] [address] [address] [address] Con Santana EOS% 0.0 % Critically low 0.9-7.0 [facility] Comment on above: Performed By: #### C BC #### [facility] [address] [address] [address] Con Santana HCT 31.2 % Critically low 36.0-48.0 [facility] Comment on above: Performed By: #### C BC #### [facility] [address] [address] [address] Con Santana HGB 10.2 g/dl Critically low 12.0-16.0 [facility] Comment on above: Performed By: #### C BC #### [facility] [address] [address] [address] Con Santana LYMPHM # 0.32 103/ul Critically low 1.20-3.80 [facility] Comment on above: Performed By: #### C BC #### [facility] [address] [address] [address] Con Santana LYMPHM% 3.0 % Critically low 20.5-60.0 [facility] Comment on above: Performed By: #### C BC #### [facility] [address] [address] [address] oCn Santana MCH 30.7 pg Normal 26.7-34.0 [facility] Comment on above: Performed By: #### C BC #### [facility] [address] [address] [address] Con Santana MCHC 32.7 g/dl Normal 29.9-35.2 [facility] Comment on above: Performed By: #### C BC #### [facility] [address] [place] [address] Dr. Con Santana MCV 94.0 fL Normal 81.0-99.0 [facility] Comment on above: Performed By: #### C BC #### [facility] [address] [place] [address] Dr. Con Santana METAMYELOCYTE # Normal [facility] Comment on above: Performed By: #### C BC #### [facility] [address] [place] [address] Dr. Con Santana METAMYELOCYTE % Normal [facility] Comment on above: Performed By: #### C BC #### [facility] [address] [place] [address] Dr. Con Santana MONOM# 0.11 103/ul Critically low 0.30-0.80 [facility] Comment on above: Performed By: #### C BC #### [facility] [address] [place] [address] Dr. Con Santana MONOM% 1.0 % Critically low 1.7-12.0 [facility] Comment on above: Performed By: #### C BC #### [facility] [address] [place] [address] Dr. Con Santana MPV 10.6 fL Normal 9.5-13.5 [facility] Comment on above: Performed By: #### C BC #### [facility] [address] [place] [address] Dr. Con Santana MYELOCYTE # Normal [facility] Comment on above: Performed By: #### C BC #### [facility] [address] [place] [address] Dr. Con Santana MYELOCYTE % Normal [facility] Comment on above: Performed By: #### C BC #### [facility] [address] [place] [address] Dr. Con Santana NRBC Normal [facility] Comment on above: Performed By: #### C BC #### [facility] [address] [place] [address] Dr. Con Santana PLT 242 103/ul Normal 150-450 [facility] Comment on above: Performed By: #### C BC #### [facility] [address] [address] [address] Con Santana RBC 3.32 106/ul Critically low 4.20-5.40 [facility] Comment on above: Performed By: #### C BC #### [facility] [address] [address] [address] Con Santana RDW 13.2 % Normal 11.0-15.0 [facility] Comment on above: Performed By: #### C BC #### [facility] [address] [address] [address] Con Santana SEG # 10.18 103/ul Critically high 1.40-6.50 [facility] Comment on above: Performed By: #### C BC #### [facility] [address] [address] [address] Con Santana SEG % 96.0 % Critically high 43.0-75.0 [facility] Comment on above: Performed By: #### C BC #### [facility] [address] [address] [address] Con Santana WBC 10.6 103/ul Normal 4.0-11.0 [facility] Comment on above: Performed By: #### C BC #### [facility] [address] [address] [address] Con Santana POINT OF CARE GLUCOSEon 11-27 Glucose [Mass/Vol] 139 mg/dL Critically high 74-106 [facility] Comment on above: Performed By: #### I NFLUAB #### [facility] [address] [address] [address] Con Santana Glucose [Mass/Vol] 151 mg/dL Critically high -106 [facility] Comment on above: Performed By: #### I NFLUAB #### [facility] [address] [address] [address] Con Santana Glucose [Mass/Vol] 200 mg/dL Critically high -106 [facility] Comment on above: Performed By: #### P OCGLUC #### [facility] [address] [address] [address] Con Santana PROF CHEM 8 (BAS METB)on Anion gap [Moles/Vol] 17.1 mmol/L Normal [facility] Comment on above: Performed By: #### P OCGLUC #### [facility] [address] [address] [address] Con Santana Calcium [Mass/Vol] 7.7 mg/dL Critically low 8.5-10.1 [facility] Comment on above: Performed By: #### P OCGLUC #### [facility] [address] [address] [address] Con Santana Chloride [Moles/Vol] 111 mmol/L Critically high 98-107 [facility] Comment on above: Performed By: #### P OCGLUC #### [facility] [address] [place] [address] Dr. Con Santana CO2 [Moles/Vol] 17.1 mmol/L Critically low 21.0-32.0 [facility] Comment on above: Performed By: #### P OCGLUC #### [facility] [address] [place] [address] Dr. Con Santana Creatinine [Mass/Vol] 1.46 mg/dL Critically high 0.55-1.02 [facility] Comment on above: Performed By: #### P OCGLUC #### [facility] [address] [place] [address] Dr. Con Santana EGFR-AF BRUNEIAN 41 mL/min/1.73m2 Critically low >=60 [facility] Comment on above: Performed By: #### P OCGLUC #### [facility] [address] [place] [address] Dr. Con Santana EGFR-NON AF BRUNEIAN 34 mL/min/1.73m2 Critically low >=60 [facility] Comment on above: Performed By: #### P OCGLUC #### [facility] [address] [place] [address] Dr. Con Santana Glucose [Mass/Vol] 167 mg/dL Critically high 74-106 [facility] Comment on above: Performed By: #### P OCGLUC #### [facility] [address] [address] [address] Con Santana Potassium [Moles/Vol] 3.2 mmol/L Critically low 3.5-5.1 [facility] Comment on above: Performed By: #### P OCGLUC #### [facility] [address] [address] [address] Con Santana Sodium [Moles/Vol] 142 mmol/L Normal 136-145 [facility] Comment on above: Performed By: #### P OCGLUC #### [facility] [address] [address] [address] Con Santana Urea nitrogen [Mass/Vol] 40.0 mg/dL Critically high 7.0-18.0 [facility] Comment on above: Performed By: #### P OCGLUC #### [facility] [address] [place] [address] Dr. Con Santana Urea nitrogen/Creatinine [Mass ratio] 27.4 mg/mg Normal [facility] Comment on above: Performed By: #### P OCGLUC #### [facility] [address] [place] [address] Dr. Con Santana XR CHEST 1 Von [...] BRINA HENRY Date: 2022-12-22 07:32 Normal [facility] POINT OF CARE GLUCOSEon 11-27 Glucose [Mass/Vol] 195 mg/dL Critically high 74-106 [facility] Comment on above: Performed By: #### P OCGLUC #### [facility] [address] [place] [address] Dr. Con Santana Glucose [Mass/Vol] 174 mg/dL Critically high 74-106 [facility] Comment on above: Performed By: #### C BC #### [facility] [address] [address] [address] Con Santana Glucose [Mass/Vol] 148 mg/dL Critically high 74-106 [facility] Comment on above: Performed By: #### C BC #### [facility] [address] [place] [address] Dr. Con Santana BNPon 12-20-2022 Natriuretic peptide B (Bld) [Mass/Vol] 1276.0 pg/mL Normal <=1,800.0 [facility] Comment on above: Performed By: #### H STROPN #### [facility] [address] [place] [address] Dr. Con Santana CARDIAC MAXIMILIANO ADMITon 023 CK [Catalytic activity/Vol] 101 U/L Normal 26-192 [facility] Comment on above: Performed By: #### H STROPN #### [facility] [address] [place] [address] Dr. Con Santana CK.MB [Mass/Vol] 1.61 ng/mL Normal <=3.60 [facility] Comment on above: Performed By: #### H STROPN #### [facility] [address] [place] [address] Dr. Con Santana HSTROP 19.8 pg/mL Normal 4.0-51.3 [facility] Comment on above: Result Comment: CUT- OFF POINTS HAVE BEEN ESTABLISHED BASED ON THE FOURTH UNIVERSAL DEFINITIONS OF MYOCARDIAL INFARCTION. THE UPPER REFERENCE LIMIT (URL) OF TROPONIN, DEFINED THE 99TH PERCENTILE OF cTnI DISTRIBUTION IN A REFERENCE POPULATION, HAS BEEN CONFIRMED THE DECISION THRESHOLD FOR [place] DIAGNOSIS. Performed By: #### H STROPN #### [facility] [address] [address] [address] Con Santana RAMONA 76 ng/mL Normal 9-82 [facility] Comment on above: Performed By: #### H STROPN #### [facility] [address] [address] [address] Con Santana CBC AUTO DIFFon 12-20-2022 BASO # 0.1 103/ul Normal 0.0-0.1 [facility] Comment on above: Performed By: #### P OCGLUC #### [facility] [address] [address] [address] Con Santana Basophils/100 WBC (Bld) 0.9 % Normal 0.2-2.0 [facility] Comment on above: Performed By: #### P OCGLUC #### [facility] [address] [place] [address] Dr. Con Santana EO # 0.8 103/ul Critically high 0.0-0.7 [facility] Comment on above: Performed By: #### P OCGLUC #### [facility] [address] [address] [address] Con Santana Eosinophils/100 WBC (Bld) 12.8 % Critically high 0.9-7.0 [facility] Comment on above: Performed By: #### P OCGLUC #### [facility] [address] [place] [address] Dr. Con Santana Erythrocyte distribution width (RBC) [Ratio] 13.0 % Normal 11.0-15.0 [facility] Comment on above: Performed By: #### P OCGLUC #### [facility] [address] [place] [address] Dr. Con Santana Hematocrit (Bld) [Volume fraction] 40.9 % Normal 36.0-48.0 [facility] Comment on above: Performed By: #### P OCGLUC #### [facility] [address] [place] [address] Dr. Con Santana Hemoglobin (Bld) [Mass/Vol] 13.3 g/dL Normal 12.0-16.0 [facility] Comment on above: Performed By: #### P OCGLUC #### [facility] [address] [address] [address] Con Santana IG # 0.01 10e3/ul Normal 0.00-0.03 [facility] Comment on above: Performed By: #### P OCGLUC #### [facility] [address] [address] [address] Con Santana IG % 0.2 % Normal 0.0-0.5 [facility] Comment on above: Performed By: #### P OCGLUC #### [facility] [address] [address] [address] Con Santana LYMPH # 3.3 103/ul Normal 1.2-3.8 [facility] Comment on above: Performed By: #### P OCGLUC #### [facility] [address] [place] [address] Dr. Con Santana Lymphocytes/100 WBC (Bld) 51.5 % Normal 20.5-60.0 [facility] Comment on above: Performed By: #### P OCGLUC #### [facility] [address] [address] [address] Con Santana MANUAL DIFF REQ NO Normal [facility] Comment on above: Performed By: #### P OCGLUC #### [facility] [address] [place] [address] Dr. Con Santana MCH (RBC) [Entitic mass] 31.3 pg Normal 26.7-34.0 [facility] Comment on above: Performed By: #### P OCGLUC #### [facility] [address] [address] [address] Con Santana MCHC (RBC) [Mass/Vol] 32.5 g/dL Normal 29.9-35.2 [facility] Comment on above: Performed By: #### P OCGLUC #### [facility] [address] [place] [address] Dr. Con Santana MCV (RBC) [Entitic vol] 96.2 fL Normal 81.0-99.0 [facility] Comment on above: Performed By: #### P OCGLUC #### [facility] [address] [address] [address] Con Santana MONO # 0.5 103/ul Normal 0.3-0.8 [facility] Comment on above: Performed By: #### P OCGLUC #### [facility] [address] [address] [address] Con Santana Monocytes/100 WBC (Bld) 7.0 % Normal 1.7-12.0 [facility] Comment on above: Performed By: #### P OCGLUC #### [facility] [address] [place] [address] Dr. Con Santana NEUT # 1.8 103/ul Normal 1.4-6.5 [facility] Comment on above: Performed By: #### P OCGLUC #### [facility] [address] [place] [address] Dr. Con Santana Neutrophils/100 WBC (Bld) 27.6 % Critically low 43.0-75.0 [facility] Comment on above: Performed By: #### P OCGLUC #### [facility] [address] [place] [address] Dr. Con Santana Platelet mean volume (Bld) [Entitic vol] 9.9 fL Normal 9.5-13.5 [facility] Comment on above: Performed By: #### P OCGLUC #### [facility] [address] [place] [address] Dr. Con Santana PLT 286 103/ul Normal 150-450 [facility] Comment on above: Performed By: #### P OCGLUC #### [facility] [address] [place] [address] Dr. Con Santana RBC 4.25 106/ul Normal 4.20-5.40 [facility] Comment on above: Performed By: #### P OCGLUC #### [facility] [address] [place] [address] Dr. Con Santana WBC 6.5 103/ul Normal 4.0-11.0 [facility] Comment on above: Performed By: #### P OCGLUC #### [facility] [address] [place] [address] Dr. Con Santana CULTURE BLOODon 12-20-2022 Microscopic examination of blood, culture Culture Observations: NO GROWTH AT 5 DAYS. Normal [facility] Comment on above: Performed By: #### B LDCX2 #### [facility] [address] [place] [address] Dr. Con Santana Microscopic examination of blood, culture Culture Observations: NO GROWTH AT 5 DAYS. Normal [facility] Comment on above: Performed By: #### C BC #### [facility] [address] [address] [address] Con Santana CULTURE URINEon 12-20-2022 CULTURE URINE Culture Observations : LIGHT GROWTH OF MIXED GENITAL [place]. NO POTENTIAL PATHOGENS SEEN. Normal [facility] Comment on above: Performed By: #### C BC #### [facility] [address] [place] [address] Dr. Con Santana Covid-19 PCR (CVDTB)on 11-27 SARS-CoV-2 (COVID-19) RNA JEANE+probe Ql (Unsp spec) Not detected Normal NOT DETECTED [facility] Comment on above: Result Comment: When [...] for this test is supported by the [place] of Health and Human Service's declaration that [...] used). Performed By: #### C BC #### [facility] [address] [place] [address] Dr. Con Santana ER URINE PROFILEon 03-25-202 3 Bilirubin Ql (U) Negative Normal NEGATIVE [facility] Comment on above: Performed By: #### Anaya JAVIER UMICRO #### [facility] [address] [place] [address] Dr. Con Santana Clarity (U) CLEAR Normal CLEAR [facility] Comment on above: Performed By: #### E YAYA, UMICRO #### [facility] [address] [place] [address] Dr. Con Santana Color (U) LT. YELLOW Normal YELLOW [facility] Comment on above: Performed By: #### E YAYA UMICRO #### [facility] [address] [place] [address] Dr. Con KNIGHT A micrscopic examination will be performed if indicated. Normal [facility] Comment on above: Performed By: #### E YAYA UMICRO #### [facility] [address] [place] [address] Dr. Con Santana Glucose Ql (U) Negative Normal NEGATIVE [facility] Comment on above: Performed By: #### Anaya JAVIER UMICRO #### [facility] [address] [place] [address] Dr. Con Santana Hemoglobin Ql (U) TRACE-INTACT Abnormal NEGATIVE [facility] Comment on above: Performed By: #### Anaya JAVIER UMICRO #### [facility] [address] [place] [address] Dr. Con Santana Ketones Ql (U) TRACE Abnormal NEGATIVE [facility] Comment on above: Performed By: #### Anaya JAVIER UMICRO #### [facility] [address] [place] [address] Dr. Con Santana LEUKOCYTES MODERATE Abnormal NEGATIVE [facility] Comment on above: Performed By: #### Aanya JAVIER UMICRO #### [facility] [address] [place] [address] Dr. Con Santana Nitrite Ql (U) Positive Abnormal NEGATIVE [facility] Comment on above: Performed By: #### Anaya JAVIER UMICRO #### [facility] [address] [place] [address] Dr. Con Santana pH (U) 7.0 [pH] Normal 5-9 [facility] Comment on above: Performed By: #### LISA INTERIANO #### [facility] [address] [place] [address] Dr. Con Santana SPEC GRAVITY 1.010 Normal 1.005-<=1.025 [facility] Comment on above: Performed By: #### LISA INTERIANO #### [facility] [address] [place] [address] Dr. Con Santana UA PROTEIN TRACE Normal NEGATIVE/ TRACE [facility] Comment on above: Performed By: #### LISA INTERIANO #### [facility] [address] [place] [address] Dr. Con Santana UR MICRO IND INDICATED Normal [facility] Comment on above: Performed By: #### LISA INTERIANO #### [facility] [address] [place] [address] Dr. Con Santana Urobilinogen Qn (U) 0.2 {Godfrey'U}/dL Normal 0.2 - 1. 0 [facility] Comment on above: Performed By: #### LISA INTERIANO #### [facility] [address] [place] [address] Dr. Con Santana INFLUENZA A AND B AGon 12-20 INFLUENZA A AG Negative Normal NEGATIVE SEE COMMENT [facility] Comment on above: Performed By: #### I NFLUAB #### [facility] [address] [place] [address] Dr. Con Santana INFLUENZA B AG Negative Normal NEGATIVE SEE COMMENT [facility] Comment on above: Performed By: #### I NFLUAB #### [facility] [address] [place] [address] Dr. Con Santana LACTATE/LACTIC ACIDon 2022 Lactate [Moles/Vol] 0.6 mmol/L Normal 0.4-2.0 [facility] Comment on above: Performed By: #### P OCGLUC #### [facility] [facility] [address] [address] [address] Con Santana POINT OF CARE GLUCOSEon 11-27 Glucose [Mass/Vol] 217 mg/dL Critically high -106 [facility] Comment on above: Performed By: #### I NFLUAB #### [facility] [address] [address] [address] Con Santana Glucose [Mass/Vol] 204 mg/dL Critically high 74-106 [facility] Comment on above: Performed By: #### P OCGLUC #### [facility] [address] [address] [address] Con Santana Glucose [Mass/Vol] 148 mg/dL Critically high -106 [facility] Comment on above: Performed By: #### C BC #### [facility] [address] [place] [address] Dr. Con Santana PROF 14(COMP METB)on 023 Albumin [Mass/Vol] 3.4 g/dL Normal 3.4-5.0 [facility] Comment on above: Performed By: #### H STROPN #### [facility] [address] [address] [address] Con Santana Albumin/Globulin [Mass ratio] 1.1 {ratio} [facility] Comment on above: Performed By: #### H STROPN #### [facility] [address] [place] [address] Dr. Con Santana ALP [Catalytic activity/Vol] 95 U/L Normal 46-116 [facility] Comment on above: Performed By: #### H STROPN #### [facility] [address] [place] [address] Dr. Con Santana ALT [Catalytic activity/Vol] 22 U/L Normal 14-59 [facility] Comment on above: Performed By: #### H STROPN #### [facility] [address] [place] [address] Dr. Con Santana Anion gap [Moles/Vol] 13.1 mmol/L Normal [facility] Comment on above: Performed By: #### H STROPN #### [facility] [address] [address] [address] Con Santana AST [Catalytic activity/Vol] U/L Critically low 15-37 [facility] Comment on above: Performed By: #### H STROPN #### [facility] [address] [address] [address] Con Santana Bilirubin [Mass/Vol] 0.4 mg/dL Normal 0.2-1.0 [facility] Comment on above: Performed By: #### H STROPN #### [facility] [address] [address] [address] Con Santana Calcium [Mass/Vol] 8.5 mg/dL Normal 8.5-10.1 [facility] Comment on above: Performed By: #### H STROPN #### [facility] [address] [address] [address] Con Santana Chloride [Moles/Vol] 107 mmol/L Normal 98-107 [facility] Comment on above: Performed By: #### H STROPN #### [facility] [address] [address] [address] Con Santana CO2 [Moles/Vol] 22.5 mmol/L Normal 21.0-32.0 [facility] Comment on above: Performed By: #### H STROPN #### [facility] [address] [address] [address] Con Santana Creatinine [Mass/Vol] 0.85 mg/dL Normal 0.55-1.02 [facility] Comment on above: Performed By: #### H STROPN #### [facility] [address] [address] [address] Con Santana EGFR-AF BRUNEIAN >60 Normal >=60 [facility] Comment on above: Performed By: #### H STROPN #### [facility] [address] [address] [address] Con Santana EGFR-NON AF BRUNEIAN >60 Normal >=60 [facility] Comment on above: Performed By: #### H STROPN #### [facility] [address] [address] [address] Con Santana Globulin (S) [Mass/Vol] 3.2 g/dL Normal [facility] Comment on above: Performed By: #### H STROPN #### [facility] [address] [address] [address] Con Santana Glucose [Mass/Vol] 131 mg/dL Critically high 74-106 [facility] Comment on above: Performed By: #### H STROPN #### [facility] [address] [address] [address] Con Santana Potassium [Moles/Vol] 3.6 mmol/L Normal 3.5-5.1 [facility] Comment on above: Performed By: #### H STROPN #### [facility] [address] [place] [address] Dr. Con Santana Protein [Mass/Vol] 6.6 g/dL Normal 6.4-8.2 [facility] Comment on above: Performed By: #### H STROPN #### [facility] [address] [place] [address] Dr. Con Santana Sodium [Moles/Vol] 139 mmol/L Normal 136-145 [facility] Comment on above: Performed By: #### H STROPN #### [facility] [address] [place] [address] Dr. Con Santana Urea nitrogen [Mass/Vol] 15.0 mg/dL Normal 7.0-18.0 [facility] Comment on above: Performed By: #### H STROPN #### [facility] [address] [place] [address] Dr. Con Santana Urea nitrogen/Creatinine [Mass ratio] 17.6 mg/mg Normal [facility] Comment on above: Performed By: #### H STROPN #### [facility] [address] [place] [address] Dr. Con Santana PROTIMEon 12-20-2022 INR Coag (PPP) [Relative time] 1.08 {INR} Normal [facility] Comment on above: Performed By: #### H STROPN #### [facility] [address] [place] [address] Dr. Con Santana INR GUIDELINES SEE BELOW Normal [facility] Comment on above: Result Comment: CANDELARIA RED INR: 2.0 - 3.0 CONDITIONS NOT LISTED BELOW 2.5 - 3.5 FOR PROSTHETIC HEART VALVE REPLACEMENT 2.5 - 3.5 RECURRENT THROMBOSIS Performed By: #### H STROPN #### [facility] [address] [place] [address] Dr. Con Santana PT Coag (PPP) [Time] 11.4 s Normal 9.0-11.6 [facility] Comment on above: Performed By: #### H STROPN #### [facility] [address] [place] [address] Dr. Con Santana PTTon 12-20-2022 aPTT Coag (Bld) [Time] 30.8 s Normal 22.3-36.2 [facility] Comment on above: Performed By: #### H STROPN #### [facility] [address] [place] [address] Dr. Con Santana URINE MICROSCOPIC ONLYon BACTERIA MODERATE Abnormal NONE SEEN [facility] Comment on above: Performed By: #### Anaya JAVIER UMICRO #### [facility] [address] [place] [address] Dr. Con Santana Bacteria identified Cx Nom (U) INDICATED Normal [facility] Comment on above: Performed By: #### Anaya JAVIER, UMICRO #### [facility] [address] [place] [address] Dr. Con Santana CAST NONE SEEN Normal NONE SEEN [facility] Comment on above: Performed By: #### Anaya JAVIER, UMICRO #### [facility] [address] [place] [address] Dr. Con Santana Crystals LM Nom (Urine sed) NONE SEEN Normal NONE SEEN [facility] Comment on above: Performed By: #### E RUR, UMICRO #### [facility] [address] [place] [address] Dr. Con Santana Epithelial cells LM Ql (Urine sed) FEW Abnormal NONE SEEN /RARE [facility] Comment on above: Performed By: #### E RUR, UMICRO #### [facility] [address] [address] [address] Con Santana MUCOUS NONE SEEN Normal NONE SEEN [facility] Comment on above: Performed By: #### E RUR, UMICRO #### [facility] [address] [address] [address] Con Santana RBC 2-5 Abnormal 0-2 [facility] Comment on above: Performed By: #### E RUR, UMICRO #### [facility] [address] [address] [address] Con Santana WBC 20-50 Abnormal NONE SEEN [facility] Comment on above: Performed By: #### E TABR, UMICRO #### [facility] [address] [address] [address] Con Santana XR CHEST 1 Von [...] ELEAZAR GUERRA Date: 2022-12-20 05:55 Normal [facility] XR DEXA BONE DENSITYon 07-10 XR DEXA BONE DENSITY DEXA Bone Density Study CLINICAL: Evaluate bone mineral density. Postmenopausal COMPARISON: None FINDINGS: The bone density study was assessed by dual-energy x-ray absorptiometry with the [employer] scanner. The test results are expressed in [...] MATI ATKINS Date: 2022-07-10 16:49 Normal [facility] BNPon 02-14-2022 Natriuretic peptide B (Bld) [Mass/Vol] 1479.0 pg/mL Normal <=1,800.0 [facility] Comment on above: Performed By: #### E TABLISA Gr #### [facility] [address] [address] [address] Con Santana CBC AUTO DIFFon 02-14-2022 BASO # 0.1 103/ul Normal 0.0-0.1 [facility] Comment on above: Performed By: #### C BC #### [facility] [address] [place] [address] Dr. Con Santana Basophils/100 WBC (Bld) 0.9 % Normal 0.2-2.0 [facility] Comment on above: Performed By: #### C BC #### [facility] [address] [place] [address] Dr. Con Santana EO # 1.0 103/ul Critically high 0.0-0.7 [facility] Comment on above: Performed By: #### C BC #### [facility] [address] [place] [address] Dr. Con Santana Eosinophils/100 WBC (Bld) 16.2 % Critically high 0.9-7.0 [facility] Comment on above: Performed By: #### C BC #### [facility] [address] [place] [address] Dr. Con Santana Erythrocyte distribution width (RBC) [Ratio] 12.7 % Normal 11.0-15.0 [facility] Comment on above: Performed By: #### C BC #### [facility] [address] [place] [address] Dr. Con Santana Hematocrit (Bld) [Volume fraction] 39.6 % Normal 36.0-48.0 [facility] Comment on above: Performed By: #### C BC #### [facility] [address] [place] [address] Dr. Con Santana Hemoglobin (Bld) [Mass/Vol] 12.9 g/dL Normal 12.0-16.0 [facility] Comment on above: Performed By: #### C BC #### [facility] [address] [place] [address] Dr. Con Santana IG # 0.02 10e3/ul Normal 0.00-0.03 [facility] Comment on above: Performed By: #### C BC #### [facility] [address] [place] [address] Dr. Con Santana IG % 0.3 % Normal 0.0-0.5 [facility] Comment on above: Performed By: #### C BC #### [facility] [address] [place] [address] Dr. Con Santana LYMPH # 2.6 103/ul Normal 1.2-3.8 [facility] Comment on above: Performed By: #### C BC #### [facility] [address] [place] [address] Dr. Con Santana Lymphocytes/100 WBC (Bld) 40.2 % Normal 20.5-60.0 [facility] Comment on above: Performed By: #### C BC #### [facility] [address] [place] [address] Dr. Con Santana MANUAL DIFF REQ NO Normal [facility] Comment on above: Performed By: #### C BC #### [facility] [address] [place] [address] Dr. Con Santana MCH (RBC) [Entitic mass] 31.5 pg Normal 26.7-34.0 [facility] Comment on above: Performed By: #### C BC #### [facility] [address] [place] [address] Dr. Con Santana MCHC (RBC) [Mass/Vol] 32.6 g/dL Normal 29.9-35.2 [facility] Comment on above: Performed By: #### C BC #### [facility] [address] [place] [address] Dr. Con Santana MCV (RBC) [Entitic vol] 96.6 fL Normal 81.0-99.0 [facility] Comment on above: Performed By: #### C BC #### [facility] [address] [place] [address] Dr. Con Santana MONO # 0.5 103/ul Normal 0.3-0.8 [facility] Comment on above: Performed By: #### C BC #### [facility] [address] [address] [address] Con Santana Monocytes/100 WBC (Bld) 8.4 % Normal 1.7-12.0 [facility] Comment on above: Performed By: #### C BC #### [facility] [address] [address] [address] Con Santana NEUT # 2.2 103/ul Normal 1.4-6.5 [facility] Comment on above: Performed By: #### C BC #### [facility] [address] [address] [address] Con Santana Neutrophils/100 WBC (Bld) 34.0 % Critically low 43.0-75.0 [facility] Comment on above: Performed By: #### C BC #### [facility] [address] [place] [address] Dr. Con Santana Platelet mean volume (Bld) [Entitic vol] 9.8 fL Normal 9.5-13.5 [facility] Comment on above: Performed By: #### C BC #### [facility] [address] [place] [address] Dr. Con Santana PLT 270 103/ul Normal 150-450 [facility] Comment on above: Performed By: #### C BC #### [facility] [address] [place] [address] Dr. Con Santana RBC 4.10 106/ul Critically low 4.20-5.40 [facility] Comment on above: Performed By: #### C BC #### [facility] [address] [place] [address] Dr. Con Santana WBC 6.3 103/ul Normal 4.0-11.0 [facility] Comment on above: Performed By: #### C BC #### [facility] [address] [place] [address] Dr. Con Santana Covid-19 PCR ([facility])on 01-27 SARS-CoV-2 (COVID-19) RNA JEANE+probe Ql (Unsp spec) Not detected Normal NOT DETECTED [facility] Comment on above: Result Comment: When [...] for this test is supported by the [employer] of Health and Human Service's declaration that [...] used). Performed By: #### C BC #### [facility] [address] [place] [address] Dr. Con Santana INFLUENZA A AND B AGon 02-14 [facility] SEE BELOW Normal [facility] Comment on above: Result Comment: Nega tive for Flu A protein angiten. Infection due to Flu A cannot be ruled out. Flu A angiten in the sample may be below the detection limit of the test. Performed By: #### C BC #### [facility] [address] [place] [address] Dr. Con Santana INFLUBNEG SEE BELOW Normal [facility] Comment on above: Result Comment: Nega tive for Flu B protein antigen. Infection due to Flu B cannot be ruled out. Flu B antigen in the sample may be below the detection limit of the test. Performed By: #### C BC #### [facility] [address] [place] [address] Dr. Con Santana INFLUENZA A AG Negative Normal NEGATIVE SEE COMMENT [facility] Comment on above: Performed By: #### C BC #### [facility] [address] [place] [address] Dr. Con Santana INFLUENZA B AG Negative Normal NEGATIVE SEE COMMENT [facility] Comment on above: Performed By: #### C BC #### [facility] [address] [address] [address] Con Santana INTERNAL CONTROLS Within Normal Limits Normal Wi thin Normal Limits [facility] Comment on above: Performed By: #### C BC #### [facility] [address] [address] [address] Con Santana PROF 14(COMP METB)on 022 Albumin [Mass/Vol] 3.1 g/dL Critically low 3.4-5.0 [facility] Comment on above: Performed By: #### H STROPN #### [facility] [address] [address] [address] Con Santana Albumin/Globulin [Mass ratio] 1.0 {ratio} Normal [facility] Comment on above: Performed By: #### H STROPN #### [facility] [address] [place] [address] Dr. Con Santana ALP [Catalytic activity/Vol] 88 U/L Normal 46-116 [facility] Comment on above: Performed By: #### H STROPN #### [facility] [address] [address] [address] Con Santana ALT [Catalytic activity/Vol] 26 U/L Normal 14-59 [facility] Comment on above: Performed By: #### H STROPN #### [facility] [address] [place] [address] Dr. Con Santana Anion gap [Moles/Vol] 11.2 mmol/L Normal [facility] Comment on above: Performed By: #### H STROPN #### [facility] [address] [address] [address] Con Santana AST [Catalytic activity/Vol] 24 U/L Normal 15-37 [facility] Comment on above: Performed By: #### H STROPN #### [facility] [address] [address] [address] Con Santana Bilirubin [Mass/Vol] 0.6 mg/dL Normal 0.2-1.0 [facility] Comment on above: Performed By: #### H STROPN #### [facility] [address] [address] [address] Con Santana Calcium [Mass/Vol] 8.4 mg/dL Critically low 8.5-10.1 [facility] Comment on above: Performed By: #### H STROPN #### [facility] [address] [address] [address] Con Santana Chloride [Moles/Vol] 106 mmol/L Normal 98-107 [facility] Comment on above: Performed By: #### H STROPN #### [facility] [address] [address] [address] Con Santana CO2 [Moles/Vol] 27.0 mmol/L Normal 21.0-32.0 [facility] Comment on above: Performed By: #### H STROPN #### [facility] [address] [place] [address] Dr. Con Santana Creatinine [Mass/Vol] 0.71 mg/dL Normal 0.55-1.02 [facility] Comment on above: Performed By: #### H STROPN #### [facility] [address] [place] [address] Dr. Con Santana EGFR-AF BRUNEIAN >60 Normal >=60 [facility] Comment on above: Performed By: #### H STROPN #### [facility] [address] [place] [address] Dr. Con Santana EGFR-NON AF BRUNEIAN >60 Normal >=60 [facility] Comment on above: Performed By: #### H STROPN #### [facility] [address] [place] [address] Dr. Con Santana Globulin (S) [Mass/Vol] 3.1 g/dL Normal [facility] Comment on above: Performed By: #### H STROPN #### [facility] [address] [address] [address] Con Santana Glucose [Mass/Vol] 104 mg/dL Normal 74-106 [facility] Comment on above: Performed By: #### H STROPN #### [facility] [address] [place] [address] Dr. Con Santana Potassium [Moles/Vol] 3.2 mmol/L Critically low 3.5-5.1 [facility] Comment on above: Performed By: #### H STROPN #### [facility] [address] [address] [address] Con Santana Protein [Mass/Vol] 6.2 g/dL Critically low 6.4-8.2 [facility] Comment on above: Performed By: #### H STROPN #### [facility] [address] [address] [address] Con Santana Sodium [Moles/Vol] 141 mmol/L Normal 136-145 [facility] Comment on above: Performed By: #### H STROPN #### [facility] [address] [place] [address] Dr. Con Santana Urea nitrogen [Mass/Vol] 13.0 mg/dL Normal 7.0-18.0 [facility] Comment on above: Performed By: #### H STROPN #### [facility] [address] [place] [address] Dr. Con Santana Urea nitrogen/Creatinine [Mass ratio] 18.3 mg/mg Normal [facility] Comment on above: Performed By: #### H STROPN #### [facility] [address] [place] [address] Dr. Con Santana TROPONIN, HIGH SENSITIVITYon 02-14-2022 HSTROP 20.9 pg/mL Normal 4.0-51.3 [facility] Comment on above: Result Comment: CUT- OFF POINTS HAVE BEEN ESTABLISHED BASED ON THE FOURTH UNIVERSAL DEFINITIONS OF MYOCARDIAL INFARCTION. THE UPPER REFERENCE LIMIT (URL) OF TROPONIN, DEFINED THE 99TH PERCENTILE OF cTnI DISTRIBUTION IN A REFERENCE POPULATION, HAS BEEN CONFIRMED THE DECISION THRESHOLD FOR [place] DIAGNOSIS. Performed By: #### E LISA JAVIER #### [facility] [address] [place] [address] Dr. Con Santana XR CHEST 1 Von [...] by: KAROL VARELA Date: 2022-02-14 09:36 Normal [facility] XR chest 2V*on 01-15-2019 XR chest 2V* [facility] [place] [address] [place] [address] XRay Report Signed Patient: Salome Dominguez MR#: [id number] : 1940 Acct:[id number] Age/Sex: 78 / F ADM Date: 01/15/19 Loc: XDUCLY Room: Type: [facility] Attending Dr: Jack JAMES Ordering Provider: [...] Maximiliano Campos M.D.01/15/2019 11:38 AM Dictation Location: [facility] Transcribed By: [facility] 01/15/19 1138 Dictated By: Maximiliano Campos II, MD 01/15/19 1137 Signed By: 01/15/19 1138 [facility] XR SHOULDER RIGHT TRAUMA SER IESon 08-21-2017 XR SHOULDER RIGHT TRAUMA SERIES 08/21/2017 5:37 PMXR SHOULDER RIGHT TRAUMA SERIESINDICATION: Fall.COMPARISON: None availableFINDINGS: 2 views the right shoulder. Comminuted fracture of the humerus involving the greater tuberosity and surgical neck. Humeral head remains articulate with the glenoid.IMPRESSION: Proximal humerus fracture.Workstation ID:[id number]; right arm injury. Best images possible. Normal [facility] Vital Signs Date Time Vital Sign Value Performing Clinician Facility 10-12-2023 11:00-0500 Body height 158.75 cm Effie Jackman Other [facility] Other 10-12-2023 11:00-0500 Body mass index (BMI) [Ratio] 18.18 kg/m2 Effie Jackman Other [facility] Other 10-12-2023 11:00-0500 Body weight 45.81 kg Effie Jackman Other [facility] Other 10-12-2023 11:00-0500 Diastolic blood pressure 64 mm[Hg] Effie Jackman Other [employer] Other 10-12-2023 11:00-0500 SaO2% (BldA) [Mass fraction] 97 % Effie Jackman Other [employer] Other 10-12-2023 11:00-0500 Systolic blood pressure 118 mm[Hg] Effie Jackman Other [employer] Other Encounters Encounter Date Encounter Type Care Provider Facility Start: 05-19-2024 ambulatory [facility] Start: 04-11-2024 End: 04-11-2024 ambulatory [facility] Start: 04-05-2024 Evaluation and management of inpatient [facility] Start: 04-04-2024 Evaluation and management of inpatient [facility] Start: 04-04-2024 Evaluation and management of inpatient CAMILLE CONCEPCION [facility] Start: 04-01-2024 Emergency department patient visit FELICIA MEDINA [facility] Start: 04-01-2024 End: 04-05-2024 Evaluation and management of inpatient MIREYA TOLENTINO [facility] Start: 04-01-2024 End: 04-01-2024 ambulatory PADMINI BILLINGS [facility] Start: 03-30-2024 End: 03-30-2024 ambulatory MICHAELA RICHARDSON Not Available Start: 03-22-2024 End: 03-22-2024 ambulatory JUANA MCDANIELS Not Available Start: 03-16-2024 End: 03-17-2024 ambulatory MICHAELA RICHARDSON Not Available Start: 12-31-2023 End: 12-31-2023 ambulatory MICHAELA H RICHARDSON Not Available Start: 11-18-2023 End: 11-18-2023 ambulatory MICHAELA RICHARDSON Not Available Start: 10-27-2023 End: 10-27-2023 ambulatory Effie Jackman Other [facility] Other Start: 10-27-2023 Telephone encounter Effie Jackman [facility] Start: 10-16-2023 End: 10-16-2023 ambulatory Effie Jackman Other [employer] Other Start: 10-16-2023 Telephone encounter Effie Jackman [facility] Start: 10-15-2023 End: 10-15-2023 ambulatory Effie Jackman Other [employer] Other Start: 10-15-2023 Telephone encounter Effie Jackman [facility] Start: 10-12-2023 Office outpatient visit 25 minutes Effie Jackman [facility] Start: 10-12-2023 Telephone encounter Effie Jackman [facility] Start: 10-12-2023 End: 10-12-2023 ambulatory NICHOLAS Joshua [facility] [employer] Other Start: 10-01-2023 End: 10-01-2023 ambulatory MICHAELA H RICHARDSON Not Available Start: 08-05-2023 End: 08-05-2023 ambulatory Effie Jackman Other [employer] Other Start: 08-05-2023 Telephone encounter Effie Jackman [facility] Start: 05-14-2023 End: 05-14-2023 ambulatory Effie Jackman Other [employer] Other Start: 05-14-2023 Telephone encounter Effie Jackman [facility] Start: 03-30-2023 End: 03-30-2023 ambulatory Effie Jackman Other [employer] Other Start: 03-30-2023 Telephone encounter Effie Jackman [facility] Start: 03-27-2023 End: 03-27-2023 ambulatory Effie Jackman Other [employer] Other Start: 03-27-2023 Telephone encounter Effie Jackman [facility] Start: 12-29-2022 End: 01-01-2023 Evaluation and management of inpatient DR JANI MORENO Facility:[facility] Start: 12-22-2022 End: 12-22-2022 Evaluation and management of inpatient DR JANI MORENO Facility:[facility] Start: 07-10-2022 End: 07-11-[address] JANI MORENO Facility:[facility] Start: 02-14-2022 End: 02-14-[address] JANI MORENO Facility:[facility] Start: 01-15-2019 End: 01-15-2019 Patient encounter procedure Jack Sanches Facility:[facility] Start: 11-20-2017 End: 11-21-2017 Ambulatory DEFAULT PHYSICIAN Facility:[facility] Start: 08-21-2017 End: 08-21-2017 Emergency department patient visit JACK PINA [facility] Start: 05-07-2017 End: 05-08-2017 Ambulatory DANIELLE COFFMAN Facility:[facility] Immunizations Immunization Date Immunization Notes Care Provider Roberta webb 07-03-2023 influenza, high dose seasonal, preservative-free Effie Augustina Other [employer] Other Payers Date Payer Category Payer Unknown [id number] 2017 Self-pay 2014 Unknown [id number] 2003 Medicare [id number] 1959 Unknown [id number] 1938 Unknown [id number] 2.16.84 [id number] 1938 Unknown [id number] 2.16.84 0.1.221977.3.579.2.593 1938 Unknown [id number] 2.16.84 0.1.164020.3.579.2.593 1938 Unknown [id number] 2.16.84 0.1.411229.3.579.2.593 1938 Unknown [id number] 2.16.84 0.1.617434.3.579.2.1259 1938 Unknown [id number] 2.16.84 0.1.108332.3.579.2.1259 1938 Unknown [id number] 2.16.84 0.1.975513.3.579.2.1259 1938 Unknown [id number] 2.16.84 0.1.512909.3.579.2.1259 1938 Unknown [id number] 2.16.84 0.1.151015.3.579.2.1259 1938 Unknown [id number] 2.16.84 0.1.513049.3.579.2.1259 1938 Unknown [id number] 2.16.840 .1.459686.3.579.2.1259 Medicare [id number] Unknown Unknown [id number] 2.16.84 0.1.301397.3.579.2.531 Social History Date Type Detail Facility Unknown if ever smoked [employer] Other Sex Assigned At Sex Assigned At Bir th [employer] Other Clinical Notes 03-27-2023 to 04-11-2024 Note Date & Type Note Facility 04-11-2024 Note [facility] Note Reason for cardiology [...] nurse practitioner on 04/29/2020 Padmini Billings MD, [facility] 04-05-2024 Note Adult Nutrition Asse ssment: Name: [...] subcutaneous, Daily levothyroxine, 75 mcg, oral, Daily vbrpid-mwlokpxc-nqusuwb, 1 capsule, oral, TID with meals metoprolol succinate XL, 12.5 mg, oral, Daily olopatadine, 1 drop, Both Eyes, BID pantoprazole, 40 mg, oral, Daily Labs: 0 Lab Value Date/Time BUN 19 04/01/2024 1905 CREATININE 0.83 04/01/2024 190 NA 135 (L) 04/01/2024 1905 K 4.3 [...] 04/04/24, h/o IBS, diarrhea, s/p gastric bypass 1974 per clinic record, presumably the indication for [...] Special Kitchen Request Once Comments: Zay 2 spanish toast, butter and syrup.turkey sausage, grits with brown sugar and butter, raspberry algerian,orange juice and coffee, cream and sugar 04/03/24 0826 04/02/24 1302 Special Kitchen Request Once Comments: Zay send hot roast beef sandwich, mashed potatoes and gravy, Chicken noodle soup, Ramos pie,diet cola, cottage cheese 04/02/24 1303 Meal Intakes: no meals recorded Nutrition Risk: High Nutrition Needs: Needs based on: actual body weight Calorie needs: 4858-9405 kcals/day based on Equation: 25-30 kcal/kg MSJ x 1,2=0356 flori Protein needs: 41-49 g/day based on [...] Hand Grasp: Weak L 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 For weekends & holidays, the dietitian can be reached via pager [phone] from [phone]-3P. Unable to respond to [employer] messages on Thursday & s. [facility] 04-05-2024 Note Hospital Medicine Discharge Summary Final [...] placement. Patient underwent implementation of dual-chamber pacemaker, [employer] on 04/04 and did fairly well. [...] Center 04/11/2024 9:40 AM Padmini Billings MD [facility] 04/29/2024 1:40 PM Sammie Miles NP [facility] Your medication list START taking [...] HYDROcodone-acetaminophen 5-325 mg tablet Commonly known as: [place] Take 1 tablet by mouth every 6 [...] Creon 3,000-9,500- 15,000 unit capsule Generic drug: vgfzey-adhrfpkt-tgcddaz levothyroxine 75 mcg tablet Commonly known as: Synthroid, Levoxyl Vitamin B-12 1,000 mcg tablet Generic drug: cyanocobalamin Where to Get Your Medications These medications were sent to [facility]/pharmacy #[id number] [place], [place] - [address] [place] [address] doxycycline 100 mg capsule metoprolol succinate XL 25 mg 24 hr tablet You can get these medications from any pharmacy Bring a paper prescription for each of these medications HYDROcodone-acetaminophen 5-325 mg tablet Salome is allergic to psyllium. Disposition: Home-Health Care [facility] (06) Discharge Condition: Stable Code Status: Full [...] was 60 minutes. Signed Mireya Tolentino MD [facility] 04/05/2024 12:[address] [facility] 04-05-2024 Note Occupational Therapy Occupational Therapy Evaluation [...] at home . Implantation of dual chamber PPM([employer]): submuscular implant 04/04/24 General Subjective: friendly [...] function) General Assessment General Assessment Hearing: (mild chilkat) Hand Dominance: Right Home Living Home Living Type of Home: Senior apartment (willBrilig living) Lives With: Spouse Home Adaptive Equipment: Walker rolling, Cane (sc, gb, hhs) Home Layout: One level Home Access: Level entry Bathroom Shower/Tub: Walk-in shower Prior Level of Function Prior Function Level of Palm: Independent with ADLs and functional transfers, Independent [...] Sensation Light Touc (more content not included)... [facility] 04-05-2024 Note UTP CARDIOLOGY INPAT IENT PROGRESS [...] patient plan for outpatient ischemic workup. Tele: Vpaced, ALLERGIES Allergies Allergen Reactions Psyllium Anaphylaxis, Rash and Unknown CURRENT MEDS doxycycline, 100 mg, oral, BID enoxaparin, 40 mg, subcutaneous, Daily levothyroxine, 75 mcg, oral, Daily wedvdx-qlxsauls-fpdyqkt, 1 capsule, oral, TID with meals olopatadine, [...] hyperinflation. Normal cardiomediastinal (more content not included)... [facility] 04-04-2024 Note DUAL CHAMBER PACEMAK ER IMPLANT PROCEDURE NOTE DATE OF PROCEDURE: 04/04/2024 PERFORMING PHYSICIAN: Dr. Issa Richards NET REPAIRER: MIKE CONSENT: Patient LOCATION: Continuous Improvement Facilitator PROCEDURE PERFORMED: 1. Implantation of dual chamber PPM([employer]): submuscular implant. 2. U/S venous access [...] presented to ER per recommendation of her wind commissioning technician because of bradycardia. Patient's daughter reports that [...] occasions using seldinger technique using a 5 [place]orese micropunture needle and exchanged for 0.034 wire. I decided to proceed with opening of the pocket. Localinfiltration of 1% Lidocaine was performed and an incision was created in the left upper chest. Dissection was then performed using cautery down. An active fixation [employer] pacing lead was then delivered via SPCC1 His sheath through the 9F sheath to the right ventricle. After confirmation of lead position on orthogonal views (CHIRINOS and SAUDI ARABIAN) to confirm position in the septal aspect, [...] three 0- Silk sutures. An active fixation [employer] RA pacing lead was then delivered through the 6Fsheath to the right atrial appendage. After confirmation of lead position on orthogonal views (CHIRINOS and SAUDI ARABIAN) to confirm position in the appendage, the screw was activated. After confirmation of good sensing parameters, injury pattern and pacing thresholds, 10V pacing was done and no diaphragmatic stimulation was noted. It was then secured in the pocket using three 1-0 Silk sutures. At this stage, given the good thresholds, the backup His lead was removed. The leads were then attached to a [employer] PPM device and the leads tug [...] x 2 weeks Issa Richards Cardiac Electrophysiology [facility] 04-04-2024 Note Patient: Salome Stewart Procedure Information Date/Time: 04/04/24 5470 Procedure: Implant PPM Location: [facility] CATHODE BUILDER 1 / [facility] (Cath) Providers: Issa Richards MD Clinical information reviewed: Tobacco Allergies Problems Med Hx Surg Hx OB Status Fam Hx Physical Exam Airway Mallampati: II TM distance: >3 FB Neck ROM: full Cardiovascular Dental Pulmonary Abdominal Anesthesia Plan ASA 2 CSE Anesthetic plan and risks discussed with patient. Use of blood products discussed with patient who. Additional Equipment Requests [facility] 04-04-2024 Note H&P reviewed. The lelia radford [...] have agreed to proceed with the procedure. [facility] 04-04-2024 Note Hospital Medicine Daily Progress Note - 04/04/2024 9:43 AM; Room: [facility]313- Admission: 04/01/2024 5:28 PM; Length of stay: 3 days THE HOSPITALIST TEAM PREFERS TO USE [employer] FOR COMMUNICATION 7AM-7PM. IF I DO NOT RESPOND WITHIN 15 MINUTES, PLEASE PAGE ME/CALL THROUGH THE PHARMACY INTAKE TECHNICIAN. FROM 7PM-7AM, PLEASE PAGE [phone](COVR) Code Status: Full Code Barriers to Discharge: [...] dyspnea, orthopnea, pre-syncope, syncope). EKG taken at [facility] on 02/10 showed first degree AV block [...] 11:30 PM 04/04/2024 8:00 AM Site Assessment Red;[place] V[place] Prophylaxis: Lovenox Scheduled Meds ceFAZolin (Ancef) 1,000 mg, gentamicin (Garamycin) 80 mg in sodium chloride irrigation solution 0.9 % 500 mL IRRIGATION, , irrigation, Once ceFAZolin, 2 g, intravenous, Once enoxaparin, 40 mg, subcutaneous, Daily levothyroxine, 75 mcg, oral, Daily uyfutb-fgovaest-giduvuf, 1 capsule, oral, TID with meals olopatadine, [...] mg/dL 19 CREATI (more content not included)... [facility] 04-04-2024 Note -- Attestation signed by Shawna [...] Richards MD, 30 mL at 04/04/24 1328 givhia-bbfregrw-cutbwkp (Creon) 3,000-9,500- 15,000 unit per capsule 1 [...] Mirian Pelaez MD PGY3 Internal Medicine [facility] 04-03-2024 Note Hospital Medicine Daily Progress Note - 04/03/2024 12:05 PM; Room: [address] [place] [address] Admission: 04/01/2024 5:28 PM; Length of stay: 2 days THE HOSPITALIST TEAM PREFERS TO USE [employer] CHAT FOR COMMUNICATION 7AM-7PM. IF I DO NOT RESPOND WITHIN 15 MINUTES, PLEASE PAGE ME/CALL THROUGH THE PHARMACY INTAKE TECHNICIAN. FROM 7PM-7AM, PLEASE PAGE [phone](COVR) Code Status: Full Code Barriers to Discharge: [...] 11:30 PM 04/03/2024 8:00 AM Site Assessment Red;[place] Red;[place] VTE Prophylaxis: Lovenox Scheduled Meds enoxaparin, 40 mg, subcutaneous, Daily levothyroxine, 75 mcg, oral, Daily rclpsh-ayffvtnv-qodckwb, 1 capsule, oral, TID with meals pantoprazole, [...] FREET4 0.77 04/01/2024 No results found for: [id number] , IRON , TIBC , C3 , [...] Tolentino MD Hospital Medicine 04/03/2024 12:[address] [facility] 04-03-2024 Note -- Attestation signed by Shawna [...] QT Interval 532 QTC CALCULATION(BAZETT) 411 P [place] 82 R-[place] -60 T Wave [place] 71 Impression Sinus rhythm with complete heart [...] Cardiology will follow along Orlando Valdez MD Director Operations PGY-4 [facility] 04-02-2024 Note Hospital Medicine Daily Progress Note - 04/02/2024 11:29 AM; Room: 3133/3133-01 Admission: 04/01/2024 5:28 PM; Length of stay: 1 days THE HOSPITALIST TEAM PREFERS TO USE [employer] CHAT FOR COMMUNICATION 7AM-7PM. IF I DO NOT RESPOND WITHIN 15 MINUTES, PLEASE PAGE ME/CALL THROUGH THE PHARMACY INTAKE TECHNICIAN. FROM 7PM-7AM, PLEASE PAGE [phone](COVR) Code Status: Full Code Barriers to Discharge: [...] 11:30 PM 04/02/2024 9:00 AM Site Assessment Red;[place] Red;[place] VTE Prophylaxis: Lovenox Scheduled Meds [START ON [...] FREET4 0.77 04/01/2024 No results found for: [id number] , IRON , TIBC , C3 , [...] acute process. Approved by:Home Galloway04/01/2024 6:58 PM. IEleazar,have reviewed the image(s) and agree with the findings in this report. Electronically signed: Eleazar Olmedo. Discharge Planning Signed Mireya Tolentino MD Hospital Medicine 04/02/2024 11:[address] [facility] 04-01-2024 Note Hospital Medicine History and Physical 04/01/2024 11:08 PM THE HOSPITALIST TEAM PREFERS TO USE [employer] FOR COMMUNICATION 7AM-7PM. IF I DO NOT RESPOND WITHIN 15 MINUTES, PLEASE PAGE ME/CALL THROUGH THE PHARMACY INTAKE TECHNICIAN. FROM 7PM-7AM, PLEASE PAGE [phone](COVR) Chief Complaint Chief Complaint Patient presents with Bradycardia Pt sent by [facility] for bradycardia. Pt c/o occasional SOB but denies being symptomatic otherwise. History of Present Illness Salome Dominguez is an 83 y.o. female who came from home with past medical history of hypothyroidism, anemia, COPD, aortic valve stenosis, asthma and dementia presented to ER per recommendation of her wind commissioning technician that the patient saw today because of [...] Date Noted Bradycardia 04/01/2024 Complete heart block ([facility]/HCC) 04/01/2024 Murmur, heart 04/01/2024 SERRANO (dyspnea on exertion) 04/01/2024 Third degree heart block ([facility]/HCC) 04/01/2024 Dementia ([facility]) 03/15/2024 Hypothyroidism 03/15/2024 Long-term use of high-risk medication 03/15/2024 Lesion of skin of scalp 07/01/2023 Sensorineural hearing loss, bilateral 07/01/2023 Acute combined systolic and diastolic heart failure (CMS/HCC) 06/30/2023 Chronic fatigue, unspecified 06/30/2023 Diabetes mellitus ([facility]/HCC) 06/30/2023 Essential (primary) hypertension 06/30/2023 Age related osteoporosis 06/08/2023 Anxiety disorder, unspecified 06/08/2023 Asymptomatic varicose veins 06/08/2023 Ataxic gait 06/08/2023 Biliary cirrhosis ([facility]/HCC) 06/08/2023 Bladder atonia 06/08/2023 Cardiomegaly 06/08/2023 Chronic [...] Moderate episode of recurrent major depressive disorder ([facility]/HCC) 06/08/2023 Moderate persistent asthma without complication 06/08/2023 Myositis 06/08/2023 Nonrheumatic aortic valve stenosis 06/08/2023 Osteoarthritis of lumbar spine 06/08/2023 Other congenital valgus deformity of feet 06/08/2023 Other seborrheic keratosis 06/08/2023 Paroxysmal atrial fibrillation (CMS/HCC) 06/08/2023 Pure hypercholesterolemia 06/08/2023 Restless legs syndrome 06/08/2023 Transient cerebral ischemia 06/08/2023 Chronic obstructive pulmonary disease with (acute) exacerbation ([facility]) 03/12/2023 Osteoarthrosis, hand 10/15/2009 Bacterial overgrowth syndrome 05/17/2009 Abdominal pain, lef (more content not included)... [facility] 04-01-2024 Note 04/01/242033 Financial Resource Strain How [...] have you lived? 1 (Lives at [facility] w/ ) In the last 12 months, was there a time when you did not have a steady place to sleep or slept in a alf (including now)? N Transportation Needs In the [...] than 3 How often do you attend pentecostalism or bahai services? Never Do you belong to any clubs or organizations such as pentecostalism groups, unions, fraternal or athletic groups, or [...] In the past 12 months has the electric, gas, oil, or water [employer] threatened to shut off services in your home? 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 Referral Reason Psychosocial assessment Patient Information Primary Caregiver Private caregiver Accompanied by/Relationship Daughter Alexia, elke Brown Activities of Daily Living Assistive Device Walker (uses sometimes) Living Arrangement (Current/Prior to Hospitalization) Private residence ([facility] independent living w/ ) Ambulation Minimum assistance (uses walker sometimes) Dressing Independent Feeding Independent Behavior Oriented (A&Ox4) Communication Can write;Talks;Understands speaking;Understands Amharic;Reads Income Information Income Source Unemployed (Retired) Discharge Planning Support Systems Spouse/significant other;Children ( Kevin; six daughters (Alexia, Kait, Donita, Jasmin, Doris, Savana); son Karol) Type of Residence Private residence;Home care staff Will patient need Precert for Post Acute needs? No Patient's goal for discharge Return to [facility] with continued SPOOLER OPERATOR AUTOMATIC Does the patient need discharge transport arranged? No Completed social work assessment and SDoH screening. Patient was A&Ox4 at this time. Patient's , Kevin, and daughter, Alexia, were currently present at bedside. Patient reported that she lives at [facility] with her . Patient identified her support system as her (Kevin), her six daughters (Alexia, Kait, Donita, Jasmin, Doris, and Savana), and her son (Karol). Patient endorsed that she is moderately socially active. Patient reported that she needs assistance with bathing, which is provided by one of her daughters or by her SPOOLER OPERATOR AUTOMATIC who visits 2x/week. Patient reported that she [...] any alcohol consumption or recreational drug use. [facility] 04-01-2024 Note [facility] Note Reason for cardiology [...] mood, affect, and judgement. Labs: 12/23/2023 at [facility] TSH 9.379., White blood count 4.6, [...] block, left a (more content not included)... [facility] 10-16-2023 Evaluation note Encounter Date Diagnosis Assessment Notes Sep, Hypokalemia (ICD-10 - E87.6) [employer] Other 01-18-2024 Evaluation note* Encounter Date Diagnosis Assessment Notes Treatment Notes Treatment Clinical Notes Sep, Other symptoms and signs involving appearance and behavior (ICD-10 - R46.89) [employer] Other 01-15-2024 Evaluation note* Encounter Date Diagnosis [...] Pt reinforced to take med as prescribed. [employer] Other 11-08-2023 Evaluation note* Encounter Date Diagnosis Assessment Notes Treatment Notes Treatment Clinical Notes Jul, Restless leg syndrome (ICD-10 - G25.81) [employer] Other 08-17-2023 Evaluation note* Encounter Date Diagnosis Assessment Notes Treatment Notes Treatment Clinical Notes Apr, Chronic diarrhea (ICD-10 - K52.9) [employer] Other 06-30-2023 Evaluation note* Encounter Date Diagnosis Assessment Notes Treatment Notes Treatment Clinical Notes Feb, Moderate persistent asthma without complication (ICD-10 - J45.40) [employer] Other Evaluation noteNo InformationNort [employer] Other History general Narrative - Reported* Type Description Date Medical History Atrial fibrillation Medical History asthma Medical History arthritia Medical History insomnia Surgical History cholecystectomy Surgical History hysterectomy Surgical History appendectomy Surgical History bowel surgery Surgical History surgery on L fourth toe 08/2016 Hospitalization History pneumonia [employer] Other History general Narrative - Reported* Type Description Date Medical History Atrial fibrillation Medical History asthma Medical History arthritia Medical History insomnia Medical History Bladder stimulator Surgical History cholecystectomy Surgical History hysterectomy Surgical History appendectomy Surgical History bowel surgery Surgical History surgery on L fourth toe 08/2016 Hospitalization History pneumonia [employer] Other Summary Purpose Family History No Family [...] Directives Records Found Reason for Referral Reason [facility] - Do cuments scanned from family. CT brain pending. Behavioral and safety concerns. Notes from family scanned into chart Diagnosis 1 Other symptoms and s igns involving cognitive functions and awareness (R41.89) Referral Organization [facility] sophie Referring Provider First Name Effie Referring Provider Last Name Augustina Referring Provider Specialty Family [facility] Referred Organization [facility] Referred Address [address] [facility],[address] Referred Provider Specialty Neurology Referral Priority Routine Additional Source Comments INFORMATION SOURCE (unrecogn ized section and content) DATE CREATED AUTHOR 03/19/2018 [facility] DATE CREATED AUTHOR AUTHOR'S ORGANIZ ATION 03/24/2018 [facility] DATE CREATED AUTHOR AUTHOR'S ORGANIZ ATION 04/22/2018 [facility] DATE CREATED AUTHOR AUTHOR'S ORGANIZ ATION 01/16/2019 [facility] DATE CREATED AUTHOR AUTHOR'S ORGANIZ ATION 01/03/2023 [facility] pitma DATE CREATED AUTHOR AUTHOR'S ORGANIZ ATION 04/01/2024 [facility] DATE CREATED AUTHOR AUTHOR'S ORGANIZ ATION 04/12/2024 [facility] DATE CREATED AUTHOR AUTHOR'S ORGANIZ ATION 05/21/2024 [facility] REASON FOR VISIT (unrecogniz ed section and [...] BE BASED ON THE PRIMARY CLINICAL RECORDS. [facility]. provides no warranty or guarantee of the accuracy or completeness of information in this document.
[2024-05-21] MEDS: ENOXAPARIN SODIUM 40 MG/0.4 ML SYRINGE SUBQ (21:15)
[2024-05-22] VITALS (8 sets, daily range): BP systolic 110–153; BP diastolic 71–80; PULSE 79–103; TEMP 36.7–37.1; O2SAT 93–97
[2024-05-22 00:26] LABS: Troponin I High Sensitivity 36.3 pg/mL (4.0-51.3)
[2024-05-22 06:41] LABS: Hematocrit 28.6 % (36.0-48.0); Hemoglobin 9.2 g/dL (12.0-16.0); Mean Corpuscular HGB Conc 32.2 g/dL (29.9-35.2); Mean Corpuscular Hemoglobin 31.3 pg (26.7-34.0); Mean Corpuscular Volume 97.3 fL (81.0-99.0); Mean Platelet Volume 9.9 fL (9.5-13.5); Platelet Count 195 10^3/uL (150-450); Red Blood Count 2.94 10^6/uL (4.20-5.40); White Blood Count 5.4 10^3/uL (4.0-11.0)
[2024-05-22 07:15] LABS: Alanine Aminotransferase 43 U/L (14-59); Albumin Globulin Ratio 1.1; Albumin Level 2.6 g/dL (3.4-5.0); Alkaline Phosphatase 57 U/L (46-116); Anion Gap 13.9; Aspartate Amino Transferase 23 U/L (15-37); BUN Creatinine Ratio 25.3; Bilirubin Total 0.3 mg/dL (0.2-1.0); Calcium 7.8 mg/dL (8.5-10.1); Carbon Dioxide 26.7 mmol/L (21.0-32.0); Chloride 104 mmol/L (98-107); Estimated GFR (African America >60 (>=60); Estimated GFR (Non-African Ame 59 (>=60); Globulin 2.3 g/dL; Glucose 111 mg/dL (74-106); Potassium 5.6 mmol/L (3.5-5.1); Sodium 139 mmol/L (136-145); Total Protein 4.9 g/dL (6.4-8.2); Troponin I High Sensitivity 31.8 pg/mL (4.0-51.3)
[2024-05-22 07:16] LABS: Cholesterol 157 mg/dL (<=200); HDL Cholesterol 79 mg/dL (40-60); Triglycerides 97 mg/dL (<=150); VLDL CHOLESTEROL 19.4 mg/dL
[2024-05-22] MEDS: LEVOTHYROXINE SODIUM 75 MCG TABLET PO (08:02)
[2024-05-22] MEDS: METOPROLOL SUCCINATE 25 MG TAB.ER.24H 12.5 MG PO (08:02)
[2024-05-22] MEDS: ASPIRIN 81 MG TAB.CHEW PO (08:02)
--- NOTE | 2024-05-22 08:18 | P.HP_ITS ---
HPI H&P: HPI History of Present Illness Chief complaint: COPD EXACERBATION ELEVATED TROPONIN Narrative: Patient is a 83 y.o White female with past medical history of COPD, hypothyroidism, HTN. She was recently hospitalized here from 05/11-05/15. She was treated for CAP and COPD exacerbation then with Levaquin and Prednisone. She presented yesterday to the ER with increased Shortness of breath with exertion, improved after breathing treatment and Solu-medrol but had slight elevation in troponin at 59. She did not have chest pain and she has pacemaker but there was no EKG changes. CXR was negative for acute findings. Her oxygen sats have remained normal on room air. Patient was placed on telemetry, and troponin continued to trend. second was 50 and third was 31.8. This morning she still denies chest pain, just says when she walks she feels some tightness. No fevers or chills, no cough. No leg swelling. Opioid HPI Opioid Management Most Recent Pain and Opioid Data: Last Pain Scale 0 05/15/24 13:36 Last Pain Intensity 0 05/14/24 09:40 Last Pain Assessment 05/22/24 11:19 Last ORT Total Score 0 05/21/24 18:54 Last ORT Risk Category Low Risk 05/21/24 18:54 Review of Systems ROS Narrative ROS: a complete review of systems were reviewed with patient and are positive as below or listed in History of Chief Complaint. General: no fever, chills, night sweats Head: no headache, trauma, visual changes, nausea or vomiting Skin: no reported rashes, itching or sores Eyes: no blurriness of vision Ears: no reported hearing loss, vertigo, earache, or tinnitus Throat: no sore throat, hoarseness, swelling of neck, or tongue pain Heart: no chest pain Lungs: shortness of breath no cough GI: no diarrhea or vomiting/nausea Urinary: no urinary urgency, frequency or pain Neuro: no numbness or tingling HEM: no bleeding issues or bruising ENDO: thyroid problems Psych: no anxiety or depression [facility] Medical History (Updated 05/22/24 @ 11:51 by Rosie Marshall DO) Chronic diastolic (congestive) heart failure ?I50.32 - Chronic diastolic (congestive) heart failure (ICD-10) Primary hypertension ?I10 - Essential (primary) hypertension (ICD-10) Hypothyroidism (acquired) ?E03.9 - Hypothyroidism, unspecified (ICD-10) Abnormal CT scan, gastrointestinal tract ?R93.3 - Abnormal findings on diagnostic imaging of other parts of digestive tract (ICD-10) Ileus ?K56.7 - Ileus, unspecified (ICD-10) Abnormal CT of the abdomen ?R93.5 - Abnormal findings on diagnostic imaging of other abdominal regions, including retroperitoneum (ICD-10) Adult failure to thrive ?R62.7 - Adult failure to thrive (ICD-10) COPD (chronic obstructive pulmonary disease) ?J44.9 - Chronic obstructive pulmonary disease, unspecified (ICD-10) Shortness of breath ?R06.02 - Shortness of breath (ICD-10) Pacemaker ?Z95.0 - Presence of cardiac pacemaker (ICD-10) Asthma ?J45.909 - Unspecified asthma, uncomplicated (ICD-10) Surgical History History of cholecystectomy ?Z90.49 - Acquired absence of other specified parts of digestive tract (ICD- 10) History of hysterectomy ?Z90.710 - Acquired absence of both cervix and uterus (ICD-10) History of appendectomy ?Z90.49 - Acquired absence of other specified parts of digestive tract (ICD- 10) Family History Brother Family history of COPD (chronic obstructive pulmonary disease) Social History Within the past year, how often did you have a drink containing alcohol: monthly or less Within the past year, how many standard drinks containing alcohol did you have on a typical day: 1 or 2 Within the past year, how often did you have six or more drinks on one occasion: never Total score: 0 Score interpretation: A score less than 3 is consistent with normal alcohol consumption. Smoking status: Never smoker Non-prescribed substance use: denies use Previous occupational history: retired Highest level of school completed/degree received: Associate degree: occupational, technical, vocational program Are you now , , , , never or living with a partner: Little interest or pleasure in doing things: not at all Feeling down, depressed, or hopeless: not at all Feel stressed/tense/nervous/anxious/difficulty sleeping: not at all Do you think of yourself as: straight/heterosexual Gender Identity: female Meds Home Medications and Allergies Home Medications ?Medication ?Instructions ?Recorded ?Confirmed ?Type albuterol sulfate 90 mcg/actuation 2 puff inhalation DAILY 02/11/24 05/21/24 History aerosol inhaler levothyroxine 75 mcg tablet 75 mcg PO DAILY 02/11/24 05/21/24 History metoprolol succinate 25 mg 12.5 mg PO DAILY 05/11/24 05/21/24 History tablet,extended release 24 hr Allergies Allergy/AdvReac Type Severity Reaction Status Date / Time psyllium [From Metamucil] Allergy Severe Hives Verified 09/22/23 16:18 Exam Narrative Exam Narrative: General: Patient is alert, and oriented to person, place and time with normal affect, proper hygiene, cachexia Skin: no visible rashes, or ulcers Head: atraumatic, acephalic Eyes: PERRLA, no nystagmus present, conjunctiva clear, no scleral icterus Ears: diminished gross auditory acuity Heart: Normal rate and rhythm, no murmurs/rubs/gallops Lungs: no audible wheezes, crackles and normal breath sounds all lung barreto; patient was walking around the room with her walker and was in no respiratory distress Abdomen: Normal audible bowel sounds, no distension, No palpable masses, no organomegaly, no rebound/guarding/ or rigidity Musculoskeletal: no swelling bilateral lower extremities Vascular: Normal carotid, radial, femoral, posterior tibial, and dorsalis pedis pulses Lymph: no supraclavicular, axillary, or anterior/posterior cervical adenopathy Neuro: CN II-X grossly intact Constitutional Vital Signs, click to edit/add: Last Vital Signs Temp 98.1 F 05/22/24 07:46 Pulse 79 05/22/24 07:46 Resp 18 05/22/24 07:46 BP 153/80 H 05/22/24 07:46 Pulse Ox 97 05/22/24 07:46 O2 Del Method Room Air 05/22/24 07:46 Results Labs Labs: Short CBC 05/21/24 05/22/24 Range/Units 13:35 06:29 WBC 6.1 5.4 (4.0-11.0) 10^3/uL Hgb 10.9 L 9.2 L (12.0-16.0) g/dL Hct 34.6 L 28.6 L (36.0-48.0) % Plt Count 213 195 (150-450) 10^3/uL BMP 05/21/24 05/22/24 13:35 06:29 Sodium 135 L 139 Potassium 4.6 5.6 H Chloride 101 104 Carbon Dioxide 27.8 26.7 BUN 20.0 H 23.0 H Creatinine 0.76 0.91 Glucose 97 111 H Calcium 8.2 L 7.8 L Liver Function 05/21/24 05/22/24 Range/Units 13:35 06:29 Total Bilirubin 0.4 0.3 (0.2-1.0) mg/dL AST 30 23 (15-37) U/L ALT 55 43 (14-59) U/L Alkaline Phosphatase 70 57 (46-116) U/L Albumin 3.2 L 2.6 L (3.4-5.0) g/dL Assessment and Plan Assessment and Plan (1) COPD exacerbation: Assessment and Plan: will place on scheduled duonebs q6 hours. monitor oxygen saturations. place on zithromax and IV Solumedrol 40mg [id number]. CXR negative for acute process. (2) Elevated troponin: Assessment and Plan: Most likely Type 2 NSTEMI, troponin trended down to normal, no acute chest pain. (3) Pacemaker: (4) Hypothyroidism (acquired): Assessment and Plan: continue levothyroxine (5) Primary hypertension: Assessment and Plan: continue metoprolol (6) Chronic diastolic (congestive) heart failure: Assessment and Plan: appears in no acute exacerbation, proBNP elevated but not as much as before. No need for diuresis at this time. Plan Patient is a full code Lovenox for dvt prophylaxis Patient is observation status and is not expected to cross 2 midnights.
[2024-05-22] MEDS: METHYLPREDNISOLONE SOD SUCC PF 40 MG/ML VIAL IVP ×3 (09:14→21:24)
[2024-05-22] MEDS: AZITHROMYCIN 500 MG in 0.9 % SODIUM CHLORIDE 250 ML 250 MG IV (09:14)
[2024-05-22 09:38] LABS: Monocytes Absolute Manual 0.21 10^3/uL (0.30-0.80); Segmented Neut Absolute Manual 4.48 10^3/uL (1.4-6.5)
[2024-05-22] MEDS: IPRATROPIUM/ALBUTEROL SULFATE 3 ML AMPUL.NEB IH ×3 (10:31→23:42)
[2024-05-22] MEDS: ENOXAPARIN SODIUM 40 MG/0.4 ML SYRINGE SUBQ (21:25)
[2024-05-23] VITALS: BP 120/62; PULSE 89; TEMP 36.3; O2SAT 94
[2024-05-23] MEDS: METHYLPREDNISOLONE SOD SUCC PF 40 MG/ML VIAL IVP ×2 (03:53→09:51)
[2024-05-23 03:57] VITALS: BP 154/78; PULSE 76; TEMP 36.6; O2SAT 98
[2024-05-23 05:30] VITALS: PULSE 93; O2SAT 95
[2024-05-23] MEDS: IPRATROPIUM/ALBUTEROL SULFATE 3 ML AMPUL.NEB IH ×2 (05:30→11:08)
[2024-05-23 08:00] VITALS: BP 144/81; PULSE 95; TEMP 36.5; O2SAT 97
--- NOTE | 2024-05-23 08:04 | P.DS_ITS ---
DS: Providers Provider Date of admission: 05/21/24 18:37 Primary care physician: Effie Jackman MD Attending physician on admission: Jennifer Paulino Consults: 05/22/24 Occupational Therapy Eval and Treat Routine Reason for consultation: weakness Physical Therapy Eval and Treat Routine Reason for consultation: weakness Attending physician on discharge: Rosie Marshall DS: Diagnosis Discharge Diagnosis (1) COPD exacerbation: (2) Elevated troponin: (3) Pacemaker: (4) Hypothyroidism (acquired): (5) Primary hypertension: (6) Chronic diastolic (congestive) heart failure: DS: Summary Hospital Course Hospital Course: Patient is a 83 y.o White female with past medical history of COPD, hypothyroidism, HTN. She was recently hospitalized here from 05/11-05/15. She was treated for CAP and COPD exacerbation then with Levaquin and Prednisone. She presented ER with increased Shortness of breath with exertion, improved after breathing treatment and Solu-medrol but had slight elevation in troponin at 59. She did not have chest pain and she has pacemaker but there was no EKG changes. CXR was negative for acute findings. Her oxygen sats have remained normal on room air even at the time of discharge. Patient was placed on telemetry, and troponin continued to trend. second was 50 and third was 31.8 and still normal range at discharge. At the time of discharge she denies chest pain or chest tightness. No fevers or chills, no cough. No leg swelling. New findings of diarrhea today. Patient given Imodium. Restarted Ensure, she can continue with Boost at home if she prefers. I have a C. Diff cultures pending given her history of antibiotic usage over the last month. She will be discharged home on a steroid taper. I will hold on antibiotics until stool culture results. She has not had any fever and there has been no evidence of Chest X-ray changes. She will continue with Home Health with [facility] services and will continue to use her walker. She also pointed out a scalp lesion. I have discussed that this needs to be addressed by her PCP, Dr. Jackman. She will have close outpatient follow up with her PCP to discuss stool culture results and scalp lesion. She can return to the ER with any worsening signs or symptoms. Status at Discharge Functional status at discharge: uses cane/walker Overall status at discharge: patient is back to baseline Time Spent with Patient Time attestation: Total time spent providing and/or coordinating discharge services: Time spent: greater than 30 minutes Exam Narrative Exam Narrative: General: Patient is alert, and oriented to person, place and time with normal affect, proper hygiene, cachexia Skin: 1cm x 1cm erythematous, scaly lesion right scalp Head: atraumatic, acephalic Eyes: PERRLA, no nystagmus present, conjunctiva clear, no scleral icterus Ears: diminished gross auditory acuity Heart: Normal rate and rhythm, no murmurs/rubs/gallops Lungs: no audible wheezes, crackles and normal breath sounds all lung barreto; patient was walking around the room with her walker and was in no respiratory distress Abdomen: Normal audible bowel sounds, no distension, No palpable masses, no organomegaly, no rebound/guarding/ or rigidity Musculoskeletal: no swelling bilateral lower extremities Neuro: CN II-X grossly intact Constitutional Vital Signs, click to edit/add: Last Vital Signs Temp 97.9 F 05/23/24 03:57 Pulse 93 H 05/23/24 05:30 Resp 18 05/23/24 05:30 BP 154/78 H 05/23/24 03:57 Pulse Ox 95 05/23/24 05:30 O2 Del Method Room Air 05/23/24 05:30 DS: Data Data Completed and Pending Labs on day of discharge: Labs from last 24 hours 05/22/24 06:29 Seg Neuts % (Manual) 83.0 H Lymphocytes % (Manual) 13.0 L Monocytes % (Manual) 4.0 Eosinophils % (Manual) 0.0 L Basophils % (Manual) 0.0 L Neutrophils # (Manual) 4.48 Lymphocytes # (Manual) 0.70 L Monocytes # (Manual) 0.21 L Eosinophils # (Manual) 0.00 Basophils # (Manual) 0.00 Discharge Plan Discharge Disposition: Home Health Service Discharge Medications: New prednisone 20 mg tablet 20 mg PO DAILY 5 Days Qty: 5 0RF loperamide [Imodium A-D] 2 mg tablet 1 mg PO Q6H PRN (Reason: loose stool) Qty: 6 0RF Continued levothyroxine 75 mcg tablet 75 mcg PO DAILY albuterol sulfate 90 mcg/actuation HFA aerosol inhaler 2 puff INHALATION DAILY metoprolol succinate 25 mg tablet extended release 24 hr 12.5 mg PO DAILY Activity: ambulate only with your walker Diet: advance to your usual diet Diet Detail: recommend Ensure supplement twice daily Print 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 Forms: Portal Instructions Follow Up Appointments: Please follow up with PCP 3-5 days for stool culture results.
[2024-05-23 08:50] LABS: Hematocrit 33.4 % (36.0-48.0); Hemoglobin 10.7 g/dL (12.0-16.0); Immature Granulocytes Abs Auto 0.07 10^3/uL (0.00-0.03); Immature Granulocytes Pct Auto 0.8 % (0.0-0.5); Lymphocytes Absolute Auto 0.6 10^3/uL (1.2-3.8); Lymphocytes Percent Auto 5.9 % (20.5-60.0); Mean Corpuscular Hemoglobin 31.5 pg (26.7-34.0); Mean Corpuscular Volume 98.2 fL (81.0-99.0); Mean Platelet Volume 9.6 fL (9.5-13.5); Monocytes Absolute Auto 0.1 10^3/uL (0.3-0.8); Monocytes Percent Auto 1.5 % (1.7-12.0); Neutrophils Absolute Auto 8.6 10^3/uL (1.4-6.5); Neutrophils Percent Auto 91.8 % (43.0-75.0); Platelet Count 204 10^3/uL (150-450); Red Cell Distribution Width 16.4 % (11.0-15.0); White Blood Count 9.3 10^3/uL (4.0-11.0)
[2024-05-23 09:06] LABS: BUN Creatinine Ratio 30.9; Carbon Dioxide 21.9 mmol/L (21.0-32.0); Estimated GFR (African America >60 (>=60); Estimated GFR (Non-African Ame 55 (>=60); Glucose 157 mg/dL (74-106); Troponin I High Sensitivity 33.9 pg/mL (4.0-51.3)
[2024-05-23 09:27] LABS: Potassium 4.3 mmol/L (3.5-5.1)
[2024-05-23 09:32] LABS: Anion Gap 16.4
--- NOTE | 2024-05-23 09:44 | CM.NOTE ---
Rounds made with Dr. Rapp. Mcmahon with new complaint of diarrhea. Stool specimen to be ordered.
--- NOTE | 2024-05-23 09:49 | SWNOTE1 ---
Pt is from [facility] and has Ayan coming in.
[2024-05-23] MEDS: ENSURE ORIGINAL 237 ML BOTTLE PO (09:51)
[2024-05-23] MEDS: LEVOTHYROXINE SODIUM 75 MCG TABLET PO (09:51)
[2024-05-23] MEDS: AZITHROMYCIN 500 MG in 0.9 % SODIUM CHLORIDE 250 ML 250 MG IV (09:52)
[2024-05-23] MEDS: ASPIRIN 81 MG TAB.CHEW PO (09:52)
[2024-05-23] MEDS: METOPROLOL SUCCINATE 25 MG TAB.ER.24H 12.5 MG PO (09:53)
[2024-05-23 11:09] VITALS: PULSE 103; O2SAT 97
[2024-05-23 12:00] VITALS: BP 160/71; PULSE 86; TEMP 36.6; O2SAT 97
--- NOTE | 2024-05-23 13:02 | SWNOTE1 ---
JORDI met with pt to discuss dc needs. [facility] with her . She does have a walker and has [facility] coming in along with private cargivers. Pt is being discharged today and will resume services. JORDI called daughterJuana to see who is transporting, no answer. JORDI reached out to Mcdaniel to see if pt's has a cell phone to call, waiting to hear back.
--- NOTE | 2024-05-23 13:03 | SWNOTE1 ---
JORDI ED note, H&P, dc summary, dc med rec, CRF, and PT/OT notes to A[facility] PEREZ.
--- NOTE | 2024-05-23 13:10 | SWNOTE1 ---
Medicare Outpatient Observation Notice reviewed and discussed with patient. Pt. verbalized understanding and signed the form. Original given to patient and copy placed in patient?s chart.
--- NOTE | 2024-05-23 13:18 | SWNOTE1 ---
SW left message for daughter, Juana, waiting to hear back.
--- NOTE | 2024-05-23 14:16 | SWNOTE1 ---
Pt's showed up and he is transporting pt home.
[2024-05-23 15:16] LABS: C. Difficile PCR NEGATIVE (NEGATIVE)
--- NOTE | 2024-05-24 13:50 | CM.DCFOLLOWU ---
Person spoke with: Salome How are you feeling? Good How is your pain? No pain Did you understand your discharge instructions? Yes Do you have any questions about your discharge instructions? No Were you given any prescriptions at discharge? Yes Were you able to get your prescriptions filled? Yes Do you understand how to take your medications as ordered? Yes Do you have any questions about your follow up appointment and do you plan to keep your follow up appointment? My appt is scheduled and I plan on going Is there anything else that you would like to discuss? No Questions/Comments/Concerns/Other:
== END 2024-05-23 14:35 | disposition home health service (06) ==
LOC: ER 17:59 → MS 18:44
PROVIDERS: Registered Nurse; Admitting Provider Family Medicine; Emergency Provider Emergency Medicine; PCP Family Medicine; Visit Provider Family Medicine
DX: J44.1 Chronic obstructive pulmonary disease with (acute) exacerbation (principal); R79.89 Other specified abnormal findings of blood chemistry; E03.9 Hypothyroidism, unspecified; I11.0 Hypertensive heart disease with heart failure; I50.32 Chronic diastolic (congestive) heart failure; F03.90 Unspecified dementia, unspecified severity, without behavioral disturbance, psychotic disturbance, mood disturbance, and anxiety; Z95.0 Presence of cardiac pacemaker; Z79.890 Hormone replacement therapy; Z79.899 Other long term (current) drug therapy
CPT/HCPCS: 36415; 71045; 80048; 80053; 80061; 83880; 84484; 85007; 85025; 85027; 85610; 87493; 93005; 94640; 94761; 96365; 96366; 96372; 96375; 96376; 97161; 97165; 97530; 99285; G0378; J0456; J1650; J2919

== ENCOUNTER 2024-05-26 10:14 | Emergency (ER) | payer MEDICARE, OTHER, SELFPAY ==
[2024-05-26] VITALS (11 sets, daily range): BP systolic 107–135; BP diastolic 56–85; PULSE 105–158; TEMP 36.7; O2SAT 97–100; BMI 18.3
--- NOTE | 2024-05-26 10:29 | XR_ITS ---
The [address] [address] Patient Name: CECELIA VILLALPANDO MRN: [id number] date: 1940 Sex: F Assigned Patient Location: ER Current Patient Location: ER Accession/Order Number: [id number] Exam Date: 05/26/2024 11:00 Report Date: 05/26/2024 11:14 At the request of: MICHAEL BURTON Procedure: XR chest 1V EXAM: Chest x-ray HISTORY: . sob . COMPARISON: 05/21/2024 TECHNIQUE: Single view of the chest. FINDINGS: Heart and vascularity are unremarkable. Pacer is noted. There is hyperexpansion of lungs and finding in hemidiaphragms suggesting COPD. Lungs are free of focal infiltrates. XR/XR chest 1V Impression: 1. Pacer in place. 2. Hyperexpansion of lungs no focal infiltrates. 3. Mild sized hiatal hernia. Findings are unchanged. 4. No acute heart or lung disease identified. Electronically authenticated by: MATI ATKINS Date: 05/26/2024 11:14
--- NOTE | 2024-05-26 10:29 | ECG_ITS ---
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
--- NOTE | 2024-05-26 10:37 | ED_ITS ---
HPI HPI - General Adult General Chief complaint: Shortness of Breath/Dyspnea Stated complaint: SOB Time Seen by Provider: 05/26/24 10:21 Source: patient Mode of arrival: Wheelchair Limitations: physical limitation History of Present Illness HPI narrative: The patient have a history of COPD as well as pacemaker, is coming to the ER for the third time within 2 weeks. Patient is coming to us with a symptoms of shortness of breath, she was covered with stool upon arrival. Denies any fall or head injury. The patient did had a diagnosis of COPD and she was admitted to the hospital and discharged almost 3 days ago on the , the patient went to discharge she had diarrhea and she was started on loperamide, The patient is not any distress complaining of shortness of breath, she menti oned that her shortness of breath has been over the last 2 days after she was discharged she was feeling much better, she has been using her inhaler with no improvement Related Data Home Medications ?Medication ?Instructions ?Recorded ?Confirmed albuterol sulfate 90 mcg/actuation 2 puff inhalation DAILY 02/11/24 05/21/24 aerosol inhaler levothyroxine 75 mcg tablet 75 mcg PO DAILY 02/11/24 05/21/24 metoprolol succinate 25 mg 12.5 mg PO DAILY 05/11/24 05/21/24 tablet,extended release 24 hr Previous Rx's ?Medication ?Instructions ?Recorded loperamide 2 mg tablet (Imodium 1 mg (1/2 x 2 mg) PO Q6H PRN loose 05/23/24 A-D) stool #6 tabs prednisone 20 mg tablet 20 mg PO DAILY 5 days #5 tabs 05/23/24 albuterol sulfate 2.5 mg/3 mL 2.5 mg (3 mL) inhalation Q6H PRN 05/26/24 (0.083 %) solution for nebulization shortness of breath or wheezing #180 mL albuterol sulfate 2.5 mg/3 mL 2.5 mg (3 mL) inhalation Q6H PRN 05/26/24 (0.083 %) solution for nebulization shortness of breath or wheezing #90 mL nebulizers (Aeroneb Go Nebulizer) #1 ea 05/26/24 Allergies Allergy/AdvReac Type Severity Reaction Status Date / Time psyllium [From Metamucil] Allergy Severe Hives Verified 05/26/24 10:26 Opioid HPI Opioid Management Most Recent Opioid Data: Last Pain Scale 2 05/23/24 09:15 Last Pain Intensity 2 05/23/24 09:15 Last Pain Assessment 05/23/24 14:00 Last ORT Total Score 0 05/21/24 18:54 Last ORT Risk Category Low Risk 05/21/24 18:54 Review of Systems ROS Status of ROS 10 or more systems reviewed and unremark able except as noted in history and below PFSH [facility] Medical History (Updated 05/26/24 @ 12:57 by Meera Cuba MD) Chronic diastolic (congestive) heart failure ?I50.32 - Chronic diastolic (congestive) heart failure (ICD-10) Primary hypertension ?I10 - Essential (primary) hypertension (ICD-10) Hypothyroidism (acquired) ?E03.9 - Hypothyroidism, unspecified (ICD-10) Abnormal CT scan, gastrointestinal tract ?R93.3 - Abnormal findings on diagnostic imaging of other parts of digestive tract (ICD-10) Ileus ?K56.7 - Ileus, unspecified (ICD-10) Abnormal CT of the abdomen ?R93.5 - Abnormal findings on diagnostic imaging of other abdominal regions, including retroperitoneum (ICD-10) Adult failure to thrive ?R62.7 - Adult failure to thrive (ICD-10) COPD (chronic obstructive pulmonary disease) ?J44.9 - Chronic obstructive pulmonary disease, unspecified (ICD-10) Shortness of breath ?R06.02 - Shortness of breath (ICD-10) Pacemaker ?Z95.0 - Presence of cardiac pacemaker (ICD-10) Asthma ?J45.909 - Unspecified asthma, uncomplicated (ICD-10) Surgical History History of cholecystectomy ?Z90.49 - Acquired absence of other specified parts of digestive tract (ICD- 10) History of hysterectomy ?Z90.710 - Acquired absence of both cervix and uterus (ICD-10) History of appendectomy ?Z90.49 - Acquired absence of other specified parts of digestive tract (ICD- 10) Family History Brother Family history of COPD (chronic obstructive pulmonary disease) Social History Within the past year, how often did you have a drink containing alcohol: monthly or less Within the past year, how many standard drinks containing alcohol did you have on a typical day: 1 or 2 Within the past year, how often did you have six or more drinks on one occasion: never Total score: 0 Score interpretation: A score less than 3 is consistent with normal alcohol consumption. Smoking status: Never smoker Non-prescribed substance use: denies use Previous occupational history: retired Highest level of school completed/degree received: Associate degree: occupational, technical, vocational program Are you now , , , , never or living with a partner: Little interest or pleasure in doing things: not at all Feeling down, depressed, or hopeless: not at all Feel stressed/tense/nervous/anxious/difficulty sleeping: not at all Do you think of yourself as: straight/heterosexual Gender Identity: female Exam Narrative Exam Narrative: Nurses notes and vital signs reviewed and patient is not hypoxic. General: Well-appearing and in no apparent distress. Skin: Warm, dry, no pallor noted. No rash. Head: Normocephalic, atraumatic. Neck: Supple, non-tender. Eye: Pupils are equal, round and EOMI. No scleral icterus. Ears, Nose, Mouth, and Throat: TM are clear, no nasal mucosal hypertrophy. Oral mucosa is moist, no posterior oropharynx erythema, uvula is mid-line Cardiovascular: Regular Rate and Rhythm without murmur, gallop or rub. Respiratory: No accessory muscle use or respiratory distress. Lungs distant breathing sound bilaterally ,no wheezing, rales or rhonchi Chest Wall: no tenderness Back: No midline thoracic or lumbar vertebral tenderness. No CVA tenderness Musculoskeletal: normal ROM, no calf or popliteal tenderness, no lower extremity edema/swelling GI: Abdomen is soft, non-distended. Normal bowel sounds. No masses appreciated. No tenderness to palpation. No rebound, guarding, or rigidity noted. Neurological: A&O x4. No cranial nerve dysfunction observed. No truncal ataxia. Moves all extremities. Sensation intact. Psychiatric: Cooperative and interactive. Normal mood and affect. Constitutional Vital Signs, click to edit/add: Last Vital Signs Temp 98.0 F 05/26/24 10:22 Pulse 105 H 05/26/24 11:40 Resp 20 05/26/24 11:40 BP 107/63 05/26/24 11:30 Pulse Ox 100 05/26/24 11:40 O2 Del Method Room Air 05/26/24 11:37 Course Vital Signs Vital signs: Vital Signs Temperature 98.0 F 05/26/24 10:22 Pulse Rate 124 H 05/26/24 10:22 Respiratory Rate 20 05/26/24 10:22 Blood Pressure 130/85 05/26/24 10:22 Pulse Oximetry 100 05/26/24 10:22 Oxygen Delivery Method Room Air 05/26/24 10:22 Temperature 98.0 F 05/26/24 10:22 Pulse Rate 105 H 05/26/24 11:40 Respiratory Rate 20 05/26/24 11:40 Blood Pressure 107/63 05/26/24 11:30 Pulse Oximetry 100 05/26/24 11:40 Oxygen Delivery Method Room Air 05/26/24 11:37 Medical Decision Making MDM Narrative Medical decision making narrative: The patient EKG showing paced rhythm with a heart rate of 115 no acute changes The patient CBC and chemistry showed no acute pathology with repeated troponin twice as well She was not showing any distress in the ER it was enough that she received 1 breathing treatment before she said that she is feeling better and had no complaint X-ray of the chest showed no acute pathology C. difficile test was negative according to the results from 2 days I did speak with the who was at the bedside as well as the patient herself they both did not want [facility] although the was more to asking that she might need that help but the patient herself does not want to be placed in a [place] [facility] facility She mentioned that she have home health care nurse as well as she have other people coming to help her and she did mention that in case she needs more help she will make her help her Patient was provided with a nebulizer machine prescription as well as albuterol The patient is to follow up with primary care physician in next 2-3 days or to return to the emergency department should any of the signs or symptoms worsen or new symptoms develop. The patient agrees with the following Diagnosis and Treatment plan and the patient will be discharged home. Lab Data Labs: Lab Results 05/26/24 05/26/24 05/26/24 Range/Units 10:30 10:35 12:11 WBC 7.7 (4.0-11.0) 10^3/uL RBC 3.42 L (4.20-5.40) 10^6/uL Hgb 10.6 L (12.0-16.0) g/dL Hct 34.0 L (36.0-48.0) % MCV 99.4 H (81.0-99.0) fL MCH 31.0 (26.7-34.0) pg MCHC 31.2 (29.9-35.2) g/dL RDW 17.1 H (11.0-15.0) % Plt Count 178 (150-450) 10^3/uL MPV 9.1 L (9.5-13.5) fL Neut % (Auto) 63.8 (43.0-75.0) % Lymph % (Auto) 24.5 (20.5-60.0) % [place] % (Auto) 9.5 (1.7-12.0) % Eos % (Auto) 1.8 (0.9-7.0) % Baso % (Auto) 0.0 L (0.2-2.0) % Neut # (Auto) 4.9 (1.4-6.5) 10^3/uL Lymph # (Auto) 1.9 (1.2-3.8) 10^3/uL [place] # (Auto) 0.7 (0.3-0.8) 10^3/uL Eos # (Auto) 0.1 (0.0-0.7) 10^3/uL Baso # (Auto) 0.0 (0.0-0.1) 10^3/uL Abs Immat Gran (auto) 0.03 (0.00-0.03) 10^3/uL Imm/Tot Granulo (auto) 0.4 (0.0-0.5) % PT 11.4 (9.0-11.6) sec INR 1.08 Sodium 139 (136-145) mmol/L Potassium 4.1 (3.5-5.1) mmol/L Chloride 106 (98-107) mmol/L Carbon Dioxide 25.6 (21.0-32.0) mmol/L Anion Gap 11.5 BUN 19.0 H (7.0-18.0) mg/dL Creatinine 0.67 (0.55-1.02) mg/dL Est GFR ( Amer) >60 (>=60) Est GFR (Non-Af Amer) >60 (>=60) BUN/Creatinine Ratio 28.4 Glucose 95 (74-106) mg/dL Calcium 7.9 L (8.5-10.1) mg/dL Magnesium 1.9 (1.8-2.4) mg/dL Total Bilirubin 0.5 (0.2-1.0) mg/dL AST 20 (15-37) U/L ALT 33 (14-59) U/L Alkaline Phosphatase 63 (46-116) U/L Troponin I High Sens 45.3 44.2 (4.0-51.3) pg/mL Total Protein 5.7 L (6.4-8.2) g/dL Albumin 3.0 L (3.4-5.0) g/dL Globulin 2.7 g/dL Albumin/Globulin Ratio 1.1 Discharge Plan Discharge Stand Alone Forms: Work/School Release, Portal Instructions Chief Complaint: Shortness of Breath/Dyspnea Clinical Impression: COPD (chronic obstructive pulmonary disease) Patient Disposition: Home, Self-Care Time of Disposition Decision: 12:54 Condition: Good Mode of Transportation: Private Vehicle Prescriptions / Home Meds: New (DME) nebulizers [Aeroneb Go Nebulizer] Misc See Rx Instructions .Route Qty: 1 0RF Rx Instructions: As directed please use for breathing treatment as directed albuterol sulfate 2.5 mg /3 mL (0.083 %) solution for nebulization 2.5 mg inhalation Q6H PRN (Reason: shortness of breath or wheezing) Qty: 180 0RF albuterol sulfate 2.5 mg /3 mL (0.083 %) solution for nebulization 2.5 mg inhalation Q6H PRN (Reason: shortness of breath or wheezing) Qty: 90 0RF Rx Instructions: icd 10 J44.9 No Action levothyroxine 75 mcg tablet 75 mcg PO DAILY albuterol sulfate 90 mcg/actuation HFA aerosol inhaler 2 puff INHALATION DAILY metoprolol succinate 25 mg tablet extended release 24 hr 12.5 mg PO DAILY prednisone 20 mg tablet 20 mg PO DAILY 5 Days Qty: 5 0RF loperamide [Imodium A-D] 2 mg tablet 1 mg PO Q6H PRN (Reason: loose stool) Qty: 6 0RF Print Language: Syriac Instructions: COPD (Chronic Obstructive Pulmonary Disease) (DC), How to Use a Nebulizer (ED) Referrals: Effie Jackman MD [Primary Care Provider] - 1 week Discharge Date/Time: 05/26/24 13:22
[2024-05-26 10:46] LABS: Eosinophils Absolute Auto 0.1 10^3/uL (0.0-0.7); Eosinophils Percent Auto 1.8 % (0.9-7.0); Hemoglobin 10.6 g/dL (12.0-16.0); Immature Granulocytes Abs Auto 0.03 10^3/uL (0.00-0.03); Immature Granulocytes Pct Auto 0.4 % (0.0-0.5); Lymphocytes Absolute Auto 1.9 10^3/uL (1.2-3.8); Lymphocytes Percent Auto 24.5 % (20.5-60.0); Mean Corpuscular HGB Conc 31.2 g/dL (29.9-35.2); Mean Corpuscular Volume 99.4 fL (81.0-99.0); Mean Platelet Volume 9.1 fL (9.5-13.5); Monocytes Absolute Auto 0.7 10^3/uL (0.3-0.8); Monocytes Percent Auto 9.5 % (1.7-12.0); Neutrophils Absolute Auto 4.9 10^3/uL (1.4-6.5); Neutrophils Percent Auto 63.8 % (43.0-75.0); Platelet Count 178 10^3/uL (150-450); Red Blood Count 3.42 10^6/uL (4.20-5.40); Red Cell Distribution Width 17.1 % (11.0-15.0); White Blood Count 7.7 10^3/uL (4.0-11.0)
[2024-05-26 10:58] LABS: INR 1.08; Prothrombin Time 11.4 sec (9.0-11.6)
[2024-05-26 10:59] LABS: Alanine Aminotransferase 33 U/L (14-59); Albumin Globulin Ratio 1.1; Alkaline Phosphatase 63 U/L (46-116); Anion Gap 11.5; Aspartate Amino Transferase 20 U/L (15-37); BUN Creatinine Ratio 28.4; Bilirubin Total 0.5 mg/dL (0.2-1.0); Calcium 7.9 mg/dL (8.5-10.1); Carbon Dioxide 25.6 mmol/L (21.0-32.0); Chloride 106 mmol/L (98-107); Estimated GFR (African America >60 (>=60); Estimated GFR (Non-African Ame >60 (>=60); Globulin 2.7 g/dL; Glucose 95 mg/dL (74-106); Potassium 4.1 mmol/L (3.5-5.1); Sodium 139 mmol/L (136-145); Total Protein 5.7 g/dL (6.4-8.2)
[2024-05-26 11:02] LABS: Magnesium 1.9 mg/dL (1.8-2.4); Troponin I High Sensitivity 45.3 pg/mL (4.0-51.3)
--- NOTE | 2024-05-26 11:32 | PC.NURSE ---
RT at bedside giving breathing treatment
[2024-05-26] MEDS: IPRATROPIUM/ALBUTEROL SULFATE 3 ML AMPUL.NEB IH (11:36)
--- NOTE | 2024-05-26 11:36 | PC.NURSE ---
1100 - attempted to use [employer] pacemaker interrogator -- unable to connect to pacemaker. pt unsure of what brand pacer is or where her card is. informed dr shankar
[2024-05-26] MEDS: 0.9 % SODIUM CHLORIDE 1,000 ML 500 ML IV (12:16)
[2024-05-26 12:36] LABS: Troponin I High Sensitivity 44.2 pg/mL (4.0-51.3)
== END 2024-05-26 13:22 | disposition home or self-care (01) ==
PROVIDERS: Emergency Provider Emergency Medicine; PCP Family Medicine
DX: J44.9 Chronic obstructive pulmonary disease, unspecified (principal); R06.02 Shortness of breath; Z95.0 Presence of cardiac pacemaker
CPT/HCPCS: 36415; 71045; 80053; 83735; 84484; 85025; 85610; 87493; 93005; 94640; 99285

== ENCOUNTER 2024-06-26 21:50 | Observation (INO) | payer MEDICARE, OTHER, SELFPAY ==
[2024-06-26] VITALS (16 sets, daily range): BP systolic 116–128; BP diastolic 65–80; PULSE 81–97; TEMP 36.5; O2SAT 96–99; BMI 15.7
--- OUTSIDE RECORDS SUMMARY | 2024-06-26 21:59 | XMS_ITS | CCD ---
Author Organization [facility] Care Team Providers Care Director Corporate Sales Name Role Phone PHYSICIAN, DEFAULT Unavailable Unavailable PHYSICIAN, DEFAULT Unavailable Unavailable DANIELLE COFFMAN Unavailable Unavailable JACK PINA Unavailable Unavailable NONSTAFF, [facility] Unavailable Unavailable Jack Sanches SOIL SPECIALIST-C Admitting UnavailJack Pandey SOIL SPECIALIST-C Attending UnavailJani Paul Primary Care Unavailable JOSH, [...] sources) levoFLOXacin; Translations: [LEVOFLOXACIN] Drug Allergy 08-07-2017 [facility] Repository (3 sources) psyllium; Translations: [PSYLLIUM] Drug Allergy 02-22-2009 [facility] Repository (11 sources) levoFLOXacin Drug Allergy 02-05-2016 hives [facility] Repository (1 source) Penicillin Drug Allergy [facility] Repository (11 sources) Psyllium Drug Allergy 03-03-2013 anaphylaxis [facility] Repository Medications Current Medications Medication Drug Class(es) Dates Sig (Normalized) Sig (Original) Acetaminophen (10 sources) Acetaminophen Active Albuterol (10 sources) beta2-Adrenergic Agonist Albuterol Sulfate HFA Active amylase 11395 unt / lipase 3000 unt / protease 9500 unt delayed release oral capsule (10 sources) take 9483-4198 [IU] by mouth three times daily at mealtime Creon 4070-0763 UNIT as directed Orally tid w meals [...] 3 Chronic Other aftercare (1 source) 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; Translations: [OTH 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 CURRENT DRUG THERAPY] Onset: 3 Episodic Other [...] Onset: 7 Unclassified (1 source) Fall / 16077() Onset: 7 Unclassified (1 source) Arm Injury / 43880() Onset: 7 Unclassified (1 source) R06.02 - [...] Range Facility Office Visiton 04-11-2024 Follow-up visit [id number] Asia Dominguez 1940 F Date Provider Department Center 04/11/2024 [id number] PATEL [facility] Family History Problem Relation Age of Onset Stroke Mother Other Mother No Known Problems Father Family Status - Relation Status Age at Mother Father Level of Service:94912 MD POSTOP FOLLOW UP VISIT RELATED TO ORIGINAL PX [facility] HEMOGLOBIN AND HEMATOCRIT, B LOODon 04-05-2024 Hematocrit (Bld) [Volume fraction] 29.6 % Low 36.0-48.0 [facility] Comment on above: Performed By: #### L [id number] #### [facility]) [address] [place] [address] Hemoglobin (Bld) [Mass/Vol] 9.8 g/dL Low 12.0-15.0 [facility] Comment on above: Performed By: #### L [id number] #### [facility] [address] [place] [address] 30on 04-04-2024 30 The patient is Moderately [...] goals for the shift include stable vitals [facility] 30 Daily Case Managemen t Update Multidisciplinary rounds have been completed. Barriers to Discharge: Pending Clinical Course. Admitted with Third degree heart block-Planning PPM implantation today. Planning to Return [place] [facility] living with on discharge. Diet: Dietary Orders (From admission, onward) Start Ordered 04/04/24 0001 Diet NPO Diet effective midnight Comments: Sips with medications Question: Reason for NPO: Answer: Operation/Procedure 04/03/24 0744 04/03/24 1233 Special Kitchen Request Once Comments: Grilled cheese on wheat, vanilla ice, fruit cup, 2 diet coke 04/03/24 1235 04/03/24 0824 Special Kitchen Request Once Comments: Plz 2 turks and caicos islander toast, butter and syrup.turkey sausage, grits with brown sugar and butter, raspberry iraqi,orange juice and coffee, cream and sugar 04/03/24 0826 04/02/24 1302 Special Kitchen Request Once Comments: Plz send hot roast beef sandwich, mashed potatoes and gravy, Chicken noodle soup, Ramos pie,diet cola, cottage cheese 04/02/24 1303 Physician Expected Discharge Date: 04/05/2024 Discharge Delays: PT Six Click Score: 23 OT Six Click Score: PT Recommendations: OT Recommendations: New Consults: [facility] 30 The patient is Moderately Stable - Low risk of patient condition declining or worsening The patient's goals for the shift include comfort The clinical goals for the shift include Vss, safety Over the shift, the patient did not make progress toward the following goals. Barriers to progression include na. Recommendations to address these barriers include na. [facility] 30on 04-03-2024 30 The patient is Moderately Stable - Low risk of patient condition declining or worsening The patient's goals for the shift include comfort and rest The clinical goals for the shift include stable VS Over the shift, the patient did not make progress toward the following goals. Barriers to progression include na. Recommendations to address these barriers include na. [facility] 30 The patient is Moderately Stable - Low risk of patient condition declining or worsening The patient's goals for the shift include comfort and rest The clinical goals for the shift include stable VS Over the shift, the patient continues to make progress toward the following goals. [facility] 30on 04-02-2024 30 The patient is Moderately Stable - Low risk of patient condition declining or worsening The patient's goals for the shift include The clinical goals for the shift include vss Over the shift, the patient did not make progress toward the following goals. Barriers to progression include na. Recommendations to address these barriers include na. [facility] 30 The patient is Moderately Stable - Low risk of patient condition declining or worsening The patient's goals for the shift include The clinical goals for the shift include vss Over the shift, the patient continues to make progress toward the following goal. [facility] CONSULTon 04-02-2024 CONSULT --- Attestation signed [...] QT Interval 532 QTC CALCULATION(BAZETT) 411 P [place] 82 R-[place] -60 T Wave [place] 71 Impression Sinus rhythm with complete heart [...] ECG 12 (more content not included)... [facility] APTTon 04-01-2024 ACTIVATED PARTIAL THROMBOPLASTIN TIME IN PPP BY COAGULATION ASSAY 33.9 Seconds Normal 25.0-35.0 [facility] Comment on above: Result Comment: Clin ical significance of the APTT is questionable in the presence of heparin. Performed By: #### L [id number] ####[facility] ([facility])[address] [place] [address] B-TYPE NATRIURETIC PEPTIDEon 04-01-2024 Natriuretic peptide B (Bld) [Mass/Vol] 566 pg/mL High 0-100 [facility] Comment on above: Performed By: #### L [id number] #### [facility] ([facility]) [address] [place] [address] BASIC METABOLIC PANELon - Anion gap [Moles/Vol] 9 mmol/L Normal 7-20 [facility] Comment on above: Performed By: #### L [id number] ####[facility] ([facility])[address] [place] [address] Calcium [Mass/Vol] 8.0 mg/dL Low 8.6-10.3 [facility] Comment on above: Performed By: #### L [id number] ####[facility] ([facility])[address] [place] [address] Chloride [Moles/Vol] 112 mmol/L High 98-107 [facility] Comment on above: Performed By: #### L [id number] ####[facility] ([facility])[address] [place] [address] CO2 [Moles/Vol] 18 mmol/L Low 21-31 [facility] Comment on above: Performed By: #### L [id number] ####[facility] ([facility])[address] [place] [address] Creatinine [Mass/Vol] 0.83 mg/dL Normal 0.60-1.20 [facility] Comment on above: Performed By: #### L [id number] ####[facility] ([facility])[address] [place] [address] GLOMERULAR FILTRATION RATE ML/MIN/1.73 SQ M.PREDICTED 69.0 mL/min/1.73m*2 Normal >60.0 [facility] Comment on above: Result Comment: [facility]???s estimated glomerular filtration rate (eGFR) will [...] individuals. Performed By: #### L [id number] ####[facility] ([facility])[address] [place] [address] Glucose [Mass/Vol] 91 mg/dL Normal 70-100 [facility] Comment on above: Performed By: #### L [id number] ####[facility] ([facility])[address] [place] [address] Potassium [Moles/Vol] 4.3 mmol/L Normal 3.5-5.1 [facility] Comment on above: Performed By: #### L [id number] ####[facility] ([facility])[address] [place] [address] Sodium [Moles/Vol] 135 mmol/L Low 136-145 [facility] Comment on above: Performed By: #### L [id number] ####[facility] ([facility])[address] [place] [address] Urea nitrogen [Mass/Vol] 19 mg/dL Normal 7-25 [facility] Comment on above: Performed By: #### L [id number] ####[facility] ([facility])[address] [place] [address] UREA NITROGEN/CREATININE (MASS RATIO) IN SER/PLAS 22.9 Normal [facility] Comment on above: Performed By: #### L [id number] ####[facility] ([facility])[address] [place] [address] CBC WITH AUTO DIFFERENTIALon 04-01-2024 Basophils (Bld) [#/Vol] 0.04 10*3/uL Normal 0.00-0.20 [facility] Comment on above: Performed By: #### L [id number] #### [facility] ([facility]) [address] [place] [address] Basophils/100 WBC (Bld) 1.0 % Normal 0.0-1.0 [facility] Comment on above: Performed By: #### L [id number] #### [facility] ([facility]) [address] [place] [address] Eosinophils (Bld) [#/Vol] 0.56 10*3/uL High 0.00-0.50 [facility] Comment on above: Performed By: #### L [id number] #### [facility] ([facility]) [address] [place] [address] Eosinophils/100 WBC (Bld) 13.9 % High 0.0-6.0 [facility] Comment on above: Performed By: #### L [id number] #### [facility] ([facility]) [address] [place] [address] Erythrocyte distribution width (RBC) [Ratio] 14.2 % Normal 11.5-15.0 [facility] Comment on above: Performed By: #### L [id number] #### [facility] ([facility]) [address] [place] [address] ERYTHROCYTE MEAN CORPUSCULAR HEMOGLOBIN CONCENTRATION (G/DL) BY AUTOMATED 31.3 g/dL Low 32.0-35.0 [facility] Comment on above: Performed By: #### L [id number] #### [facility] ([facility]) [address] [place] [address] Hematocrit (Bld) [Volume fraction] 31.3 % Low 36.0-48.0 [facility] Comment on above: Performed By: #### L [id number] #### [facility] ([facility]) [address] [place] [address] Hemoglobin (Bld) [Mass/Vol] 9.8 g/dL Low 12.0-15.0 [facility] Comment on above: Performed By: #### L [id number] #### [facility] ([facility]) [address] [place] [address] Immature granulocytes (Bld) [#/Vol] 0.00 10*3/uL Normal 0.00-0.20 [facility] Comment on above: Performed By: #### L [id number] #### [facility] ([facility]) [address] [place] [address] Immature granulocytes/100 WBC (Bld) 0.0 % Normal 0.0-1.0 [facility] Comment on above: Performed By: #### L [id number] #### [facility] ([facility]) [address] [place] [address] Lymphocytes (Bld) [#/Vol] 1.85 10*3/uL Normal 1.20-4.00 [facility] Comment on above: Performed By: #### L [id number] #### [facility] ([facility]) [address] [place] [address] Lymphocytes/100 WBC (Bld) 45.9 % High 20.0-45.0 [facility] Comment on above: Performed By: #### L [id number] #### [facility] ([facility]) [address] [place] [address] MCH (RBC) [Entitic mass] 30.9 pg Normal 27.0-33.0 [facility] Comment on above: Performed By: #### L [id number] #### [facility] ([facility]) [address] [place] [address] MCV (RBC) [Entitic vol] 98.7 fL High 82.0-98.0 [facility] Comment on above: Performed By: #### L [id number] #### [facility] ([facility]) [address] [place] [address] Monocytes (Bld) [#/Vol] 0.45 10*3/uL Normal 0.10-1.00 [facility] Comment on above: Performed By: #### L [id number] #### [facility] ([facility]) [address] [place] [address] Monocytes/100 WBC (Bld) 11.2 % Normal 5.0-12.0 [facility] Comment on above: Performed By: #### L [id number] #### [facility] ([facility]) [address] [place] [address] Neutrophils (Bld) [#/Vol] 1.13 10*3/uL Low 1.60-7.60 [facility] Comment on above: Performed By: #### L [id number] #### [facility] ([facility]) [address] [place] [address] Neutrophils/100 WBC (Bld) 28.0 % Low 40.0-72.0 [facility] Comment on above: Performed By: #### L [id number] #### [facility] ([facility]) [address] [place] [address] NRBC (PER 100 WBCS) BY AUTOMATED COUNT 0.0 % Normal 0 [facility] Comment on above: Performed By: #### L [id number] #### [facility] ([facility]) [address] [place] [address] PLATELETS (10*3/UL) IN BLOOD AUTOMATED COUNT 177 10*3/uL Normal 150-400 [facility] Comment on above: Performed By: #### L [id number] #### [facility] ([facility]) [address] [place] [address] RBC (Bld) [#/Vol] 3.17 10*6/uL Low 3.80-5.00 [facility] Comment on above: Performed By: #### L [id number] #### [facility] ([facility]) [address] [place] [address] WBC (Bld) [#/Vol] 4.03 10*3/uL Normal 4.00-10.60 [facility] Comment on above: Performed By: #### L [id number] #### [facility] ([facility]) [address] [place] [address] EDPROVon 04-01-2024 EDPROV --- Attestation signed by Felicia Medina DO at 04/02/2024 3:16 PM 2022 Emergency Medicine Coding Guide from [employer] on 04/02/2024 All calculations should be rechecked [...] Patient presents with Bradycardia Pt sent by [place] cardiology for bradycardia. Pt c/o occasional SOB but denies being symptomatic otherwise. HPI 83-year-old female with history of Alzheimer disease, asthma, A-fib, COPD, and hypothyroidism presenting due to concerns of third-degree heart block. Patient evaluated at visual supervisor office today after patient was found to be bradycardic at neurologist office. Per cardiology patient was in third-degree heart block and sent to be evaluated for possible pacemaker placement. Patient states that she feels tired all the time but denies any other symptoms with it. Ricardo Coma Scale Score: 15 Patient History Past Medical History: Diagnosis Date Abnormal ECG Alzheimer disease ([facility]) Asthma Atrial fibrillation ([facility]) Bradycardia COPD (chronic obstructive pulmonary disease) ([facility]) Dementia ([facility]) Hypothyroidism RLS (restless legs syndrome) Past [...] 1843 Rate: 36 Rhythm: 3rd degree block [place]: LAD QRS: 142 MD: n/a Qtc: 411 Other findings: TWI in V3 [TS] ED Course User Index [TS] Felicia Medina DO Diagnoses as of 04/01/242002 Third degree heart block (CMS/HCC) Medical Decision Making Reviewed patie (more content not included)... Normal [facility] Office Visiton 04-01-2024 Follow-up visit [id number] Asia Dominguez 1940 F Date Provider Department Center 04/01/2024 [id number] BILLINGS [facility] Family History Problem Relation Age of Onset Stroke Mother Other Mother No Known Problems Father Family Status - Relation Status Age at Mother Father Level of Service:38174 MD OFFICE/OUTPATIENT NEW MODERATE MDM 45 MINUTES Normal [facility] PROTIME-INRon 04-01-2024 INR IN PPP BY COAGULATION ASSAY 1.18 High 0.90-1.10 [facility] Comment on above: Result Comment: ACCC P [...] Performed By: #### L [id number] #### [facility]) [address] [place] [address] PROTHROMBIN TIME (PT) IN PPP BY COAGULATION ASSAY 15.0 Seconds High 12.3-14.8 [facility] Comment on above: Performed By: #### L [id number] #### [facility]) [address] [place] [address] T4, FREEon 04-01-2024 THYROXINE (T4) FREE (NG/DL) IN SER/PLAS 0.77 ng/dL Normal 0.71-1.85 [facility] Comment on above: Performed By: #### L [id number] ####[facility] [employer])[address] [place] [address] TROPONIN Ion 04-01-2024 Troponin I.cardiac [Mass/Vol] 0.04 ng/mL Normal 0.00-0.04 [facility] Comment on above: Performed By: #### L [id number] #### [facility] ([facility]) [address] [place] [address] TSH3 REFLEX TO FT4on 024 THYROTROPIN (MIU/L) IN SER/PLAS BY DETECTION LIMIT <= 0.05 MIU/L 6.13 mIU/L High 0.34-5.60 [facility] Comment on above: Performed By: #### L [id number] #### [facility] ([facility]) [address] [place] [address] CULTURE URINEon 01-02-2023 CULTURE URINE Isolate 1 [...] F Nitrofurantoin <=16 S F Normal [facility] Comment on above: Performed By: #### C BC #### [facility] [address] [place] [address] Dr. Con Santana BNPon 01-01-2023 Natriuretic peptide B (Bld) [Mass/Vol] 6147.0 pg/mL Critically high <=1,800.0 [facility] Comment on above: Performed By: #### H STROPN #### [facility] [address] [place] [address] Dr. Con Santana CBC AUTO DIFFon 01-01-2023 BASO # 0.0 103/ul Normal 0.0-0.1 [facility] Comment on above: Performed By: #### C BC #### [facility] [address] [place] [address] [address] Con Santana Basophils/100 WBC (Bld) 0.2 % Normal 0.2-2.0 [facility] Comment on above: Performed By: #### C BC #### [facility] [address] [place] [address] Dr. Con Santana EO # 0.0 103/ul Normal 0.0-0.7 [facility] Comment on above: Performed By: #### C BC #### [facility] [address] [place] [address] Dr. Con Santana Eosinophils/100 WBC (Bld) 0.0 % Critically low 0.9-7.0 [facility] Comment on above: Performed By: #### C BC #### [facility] [address] [place] [address] Dr. Con Santana Erythrocyte distribution width (RBC) [Ratio] 14.4 % Normal 11.0-15.0 [facility] Comment on above: Performed By: #### C BC #### [facility] [address] [place] [address] Dr. Con Santana Hematocrit (Bld) [Volume fraction] 28.5 % Critically low 36.0-48.0 [facility] Comment on above: Performed By: #### C BC #### [facility] [address] [place] [address] Dr. Con Santana Hemoglobin (Bld) [Mass/Vol] 9.1 g/dL Critically low 12.0-16.0 [facility] Comment on above: Performed By: #### C BC #### [facility] [address] [place] [address] Dr. Con Santana IG # 0.14 10e3/ul Critically high 0.00-0.[address] [facility] Comment on above: Performed By: #### C BC #### [facility] [address] [place] [address] Dr. Con Santana IG % 1.1 % Critically high 0.0-0.[address] [facility] Comment on above: Performed By: #### C BC #### [facility] [address] [place] [address] [address] Con Santana LYMPH # 0.9 103/ul Critically low 1.2-3.8 [facility] Comment on above: Performed By: #### C BC #### [facility] [address] [place] [address] Dr. Con Santana Lymphocytes/100 WBC (Bld) 7.3 % Critically low 20.5-60.0 [facility] Comment on above: Performed By: #### C BC #### [facility] [address] [place] [address] [address] Con Santana MANUAL DIFF REQ NO Normal [facility] Comment on above: Performed By: #### C BC #### [facility] [address] [place] [address] Dr. Con Santana MCH (RBC) [Entitic mass] 31.1 pg Normal 26.7-34.0 [facility] Comment on above: Performed By: #### C BC #### [facility] [address] [place] [address] Dr. Con Santana MCHC (RBC) [Mass/Vol] 31.9 g/dL Normal 29.9-35.2 [facility] Comment on above: Performed By: #### C BC #### [facility] [address] [place] [address] Dr. Con Santana MCV (RBC) [Entitic vol] 97.3 fL Normal 81.0-99.0 [facility] Comment on above: Performed By: #### C BC #### [facility] [address] [place] [address] Dr. Con Santana MONO # 1.3 103/ul Critically high 0.3-0.[address] [facility] Comment on above: Performed By: #### C BC #### [facility] [address] [place] [address] Dr. Con Santana Monocytes/100 WBC (Bld) 10.0 % Normal 1.7-12.0 [facility] Comment on above: Performed By: #### C BC #### [facility] [address] [address] [address] Con Santana NEUT # 10.5 103/ul Critically high 1.4-6.[address] [facility] Comment on above: Performed By: #### C BC #### [facility] [address] [place] [address] Dr. Con Santana Neutrophils/100 WBC (Bld) 81.4 % Critically high 43.0-75.0 [facility] Comment on above: Performed By: #### C BC #### [facility] [address] [place] [address] Dr. Con Santana Platelet mean volume (Bld) [Entitic vol] 10.5 fL Normal 9.5-13.5 [facility] Comment on above: Performed By: #### C BC #### [facility] [address] [place] [address] Dr. Con Santana PLT 179 103/ul Normal 150-450 [facility] Comment on above: Performed By: #### C BC #### [facility] [address] [place] [address] Dr. Con Santana RBC 2.93 106/ul Critically low 4.20-5.[address] [facility] Comment on above: Performed By: #### C BC #### [facility] [address] [place] [address] Dr. Con Santana WBC 12.8 103/ul Critically high 4.0-11.0 [facility] Comment on above: Performed By: #### C BC #### [facility] [address] [place] [address] Dr. Con Santana POINT OF CARE GLUCOSEon Glucose [Mass/Vol] 97 mg/dL Normal 74-106 [facility] Comment on above: Performed By: #### C BC #### [facility] [address] [place] [address] Dr. Con Santana PROF CHEM 8 (BAS METB)on Anion gap [Moles/Vol] 14.3 mmol/L Normal [facility] Comment on above: Performed By: #### H STROPN #### [facility] [address] [address] [address] Con Santana Calcium [Mass/Vol] 7.2 mg/dL Critically low 8.5-10.1 [facility] Comment on above: Performed By: #### H STROPN #### [facility] [address] [address] [address] Con Santana Chloride [Moles/Vol] 108 mmol/L Critically high 98-107 [facility] Comment on above: Performed By: #### H STROPN #### [facility] [address] [address] [address] Con Santana CO2 [Moles/Vol] 22.6 mmol/L Normal 21.0-32.0 [facility] Comment on above: Performed By: #### H STROPN #### [facility] [address] [address] [address] Con Santana Creatinine [Mass/Vol] 1.08 mg/dL Critically high 0.55-1.02 [facility] Comment on above: Performed By: #### H STROPN #### [facility] [address] [address] [address] Con Santana EGFR-AF CITIZEN [place] 59 mL/min/1.73m2 Critically low >=60 [facility] Comment on above: Performed By: #### H STROPN #### [facility] [address] [address] [address] Con Santana EGFR-NON AF CITIZEN OF [place] 48 mL/min/1.73m2 Critically low >=60 [facility] Comment on above: Performed By: #### H STROPN #### [facility] [address] [address] [address] Con Santana Glucose [Mass/Vol] 100 mg/dL Normal 74-106 [facility] Comment on above: Performed By: #### H STROPN #### [facility] [address] [address] [address] Con Santana Potassium [Moles/Vol] 3.9 mmol/L Normal 3.5-5.1 [facility] Comment on above: Performed By: #### H STROPN #### [facility] [address] [address] [address] Con Santana Sodium [Moles/Vol] 141 mmol/L Normal 136-145 [facility] Comment on above: Performed By: #### H STROPN #### [facility] [address] [place] [address] Dr. Con Santana Urea nitrogen [Mass/Vol] 27.0 mg/dL Critically high 7.0-18.0 [facility] Comment on above: Performed By: #### H STROPN #### [facility] [address] [place] [address] Dr. Con Santana Urea nitrogen/Creatinine [Mass ratio] 25.0 mg/mg Normal [facility] Comment on above: Performed By: #### H STROPN #### [facility] [address] [place] [address] Dr. Con Santana BNPon 12-31-2022 Natriuretic peptide B (Bld) [Mass/Vol] 7148.0 pg/mL Critically high <=1,800.0 [facility] Comment on above: Performed By: #### H STROPN #### [facility] [address] [place] [address] Dr. Con Santana CBC W MANUAL DIFFon 01-01-20 23 ATYPICAL LYMPH # Normal [facility] Comment on above: Performed By: #### P OCGLUC #### [facility] [address] [place] [address] Dr. Con Santana ATYPICAL LYMPH % Normal [facility] Comment on above: Performed By: #### P OCGLUC #### [facility] [address] [place] [address] Dr. Con Santana BAND # 0.0 103/ul Normal 0.0-0.3 [facility] Comment on above: Performed By: #### P OCGLUC #### [facility] [address] [place] [address] Dr. Con Santana BAND % 0 % Normal 0-5 [facility] Comment on above: Performed By: #### P OCGLUC #### [facility] [address] [place] [address] Dr. Con Santana BASOM # 0.00 103/ul Normal 0.00-0.10 [facility] Comment on above: Performed By: #### P OCGLUC #### [facility] [address] [address] [address] Con Santana BASOM % 0.0 % Critically low 0.2-2.0 [facility] Comment on above: Performed By: #### P OCGLUC #### [facility] [address] [address] [address] Con Santana BLAST # Normal [facility] Comment on above: Performed By: #### P OCGLUC #### [facility] [address] [address] [address] Con Santana BLAST % Normal [facility] Comment on above: Performed By: #### P OCGLUC #### [facility] [address] [address] [address] Con Santana CORRECTED WBC Normal 4.0-11.0 [facility] Comment on above: Performed By: #### P OCGLUC #### [facility] [address] [address] [address] Con Santana EOS # 0.00 103/ul Normal 0.00-0.70 [facility] Comment on above: Performed By: #### P OCGLUC #### [facility] [address] [address] [address] Con Santana EOS% 0.0 % Critically low 0.9-7.0 [facility] Comment on above: Performed By: #### P OCGLUC #### [facility] [address] [address] [address] Con Santana HCT 27.8 % Critically low 36.0-48.0 [facility] Comment on above: Performed By: #### P OCGLUC #### [facility] [address] [address] [address] Con Santana HGB 9.0 g/dl Critically low 12.0-16.0 [facility] Comment on above: Performed By: #### P OCGLUC #### [facility] [address] [address] [address] Con Santana LYMPHM # 0.53 103/ul Critically low 1.20-3.[address] [facility] Comment on above: Performed By: #### P OCGLUC #### [facility] [address] [address] [address] Con Santana LYMPHM% 5.0 % Critically low 20.5-60.0 [facility] Comment on above: Performed By: #### P OCGLUC #### [facility] [address] [address] [address] Con Santana MCH 31.0 pg Normal 26.7-34.0 [facility] Comment on above: Performed By: #### P OCGLUC #### [facility] [address] [address] [address] Con Santana MCHC 32.4 g/dl Normal 29.9-35.2 [facility] Comment on above: Performed By: #### P OCGLUC #### [facility] [address] [address] [address] Con Santana MCV 95.9 fL Normal 81.0-99.0 [facility] Comment on above: Performed By: #### P OCGLUC #### [facility] [address] [address] [address] Con Santana METAMYELOCYTE # Normal [facility] Comment on above: Performed By: #### P OCGLUC #### [facility] [address] [address] [address] Con Santana METAMYELOCYTE % Normal [facility] Comment on above: Performed By: #### P OCGLUC #### [facility] [address] [address] [address] Con Santana MONOM# 0.11 103/ul Critically low 0.30-0.[address] [facility] Comment on above: Performed By: #### P OCGLUC #### [facility] [address] [address] [address] Con Santana MONOM% 1.0 % Critically low 1.7-12.0 [facility] Comment on above: Performed By: #### P OCGLUC #### [facility] [address] [address] [address] Con Santana MPV 10.9 fL Normal 9.5-13.5 [facility] Comment on above: Performed By: #### P OCGLUC #### [facility] [address] [address] [address] Con Santana MYELOCYTE # Normal [facility] Comment on above: Performed By: #### P OCGLUC #### [facility] [address] [address] [address] Con Santana MYELOCYTE % Normal [facility] Comment on above: Performed By: #### P OCGLUC #### [facility] [address] [place] [address] Dr. Con Santana NRBC Normal [facility] Comment on above: Performed By: #### P OCGLUC #### [facility] [address] [address] [address] Con Santana PLT 184 103/ul Normal 150-450 [facility] Comment on above: Performed By: #### P OCGLUC #### [facility] [address] [address] [address] Con Santana RBC 2.90 106/ul Critically low 4.20-5.40 [facility] Comment on above: Performed By: #### P OCGLUC #### [facility] [address] [address] [address] Con Santana RDW 14.5 % Normal 11.0-15.0 [facility] Comment on above: Performed By: #### P OCGLUC #### [facility] [address] [address] [address] Con Santana SEG # 9.96 103/ul Critically high 1.40-6.50 [facility] Comment on above: Performed By: #### P OCGLUC #### [facility] [address] [place] [address] Dr. Con Santana SEG % 94.0 % Critically high 43.0-75.0 [facility] Comment on above: Performed By: #### P OCGLUC #### [facility] [address] [address] [address] Con Santana WBC 10.6 103/ul Normal 4.0-11.0 [facility] Comment on above: Performed By: #### P OCGLUC #### [facility] [address] [address] [address] Con Santana POINT OF CARE GLUCOSEon Glucose [Mass/Vol] 145 mg/dL Critically high 74-106 [facility] Comment on above: Performed By: #### I NFLUAB #### [facility] [address] [address] [address] Con Santana Glucose [Mass/Vol] 162 mg/dL Critically high [facility]106 [facility] Comment on above: Performed By: #### E LISA JAVIER #### [facility] [address] [place] [address] Dr. Con Santana Glucose [Mass/Vol] 141 mg/dL Critically high 74-106 [facility] Comment on above: Performed By: #### C BC #### [facility] [address] [place] [address] Dr. Con Santana PROF CHEM 8 (BAS METB)on Anion gap [Moles/Vol] 16.5 mmol/L Normal [facility] Comment on above: Performed By: #### H STROPN #### [facility] [address] [place] [address] Dr. Con Santana Calcium [Mass/Vol] 7.3 mg/dL Critically low 8.5-10.1 [facility] Comment on above: Performed By: #### H STROPN #### [facility] [address] [place] [address] Dr. Con Santana Chloride [Moles/Vol] 108 mmol/L Critically high 98-107 [facility] Comment on above: Performed By: #### H STROPN #### [facility] [address] [place] [address] Dr. Con Santana CO2 [Moles/Vol] 18.5 mmol/L Critically low 21.0-32.0 [facility] Comment on above: Performed By: #### H STROPN #### [facility] [address] [address] [address] Con Santana Creatinine [Mass/Vol] 1.14 mg/dL Critically high 0.55-1.02 [facility] Comment on above: Performed By: #### H STROPN #### [facility] [address] [address] [address] Con Santana EGFR-AF CITIZEN OF [place] 55 mL/min/1.73m2 Critically low >=60 [facility] Comment on above: Performed By: #### H STROPN #### [facility] [address] [place] [address] Dr. Con Santana EGFR-NON AF CITIZEN OF [place] 45 mL/min/1.73m2 Critically low >=60 [facility] Comment on above: Performed By: #### H STROPN #### [facility] [address] [address] [address] Con Santana Glucose [Mass/Vol] 151 mg/dL Critically high 74-106 [facility] Comment on above: Performed By: #### H STROPN #### [facility] [address] [place] [address] Dr. Con Santana Potassium [Moles/Vol] 4.0 mmol/L Normal 3.5-5.1 [facility] Comment on above: Performed By: #### H STROPN #### [facility] [address] [address] [address] Con Santana Sodium [Moles/Vol] 139 mmol/L Normal 136-145 [facility] Comment on above: Performed By: #### H STROPN #### [facility] [address] [address] [address] Con Santana Urea nitrogen [Mass/Vol] 27.0 mg/dL Critically high 7.0-18.0 [facility] Comment on above: Performed By: #### H STROPN #### [facility] [address] [place] [address] Dr. Con Santana Urea nitrogen/Creatinine [Mass ratio] 23.7 mg/mg Normal [facility] Comment on above: Performed By: #### H STROPN #### [facility] [address] [place] [address] Dr. Con Santana XR CHEST 2 Von [...] ELEAZAR GUERRA Date: 2022-12-31 11:27 Normal [facility] BNPon 12-30-2022 Natriuretic peptide B (Bld) [Mass/Vol] 7840.0 pg/mL Critically high <=1,800.0 [facility] Comment on above: Performed By: #### I NFLUAB #### [facility] [address] [place] [address] Dr. Con Santana CBC AUTO DIFFon 12-30-2022 BASO # 0.0 103/ul Normal 0.0-0.1 [facility] Comment on above: Performed By: #### P OCGLUC #### [facility] [address] [place] [address] Dr. Con Santana Basophils/100 WBC (Bld) 0.2 % Normal 0.2-2.0 [facility] Comment on above: Performed By: #### P OCGLUC #### [facility] [address] [place] [address] Dr. Con Santana EO # 0.0 103/ul Normal 0.0-0.7 [facility] Comment on above: Performed By: #### P OCGLUC #### [facility] [address] [place] [address] Dr. Con Santana Eosinophils/100 WBC (Bld) 0.0 % Critically low 0.9-7.0 [facility] Comment on above: Performed By: #### P OCGLUC #### [facility] [address] [place] [address] Dr. Con Santana Erythrocyte distribution width (RBC) [Ratio] 13.6 % Normal 11.0-15.0 [facility] Comment on above: Performed By: #### P OCGLUC #### [facility] [address] [place] [address] Dr. Con Santana Hematocrit (Bld) [Volume fraction] 28.5 % Critically low 36.0-48.0 [facility] Comment on above: Performed By: #### P OCGLUC #### [facility] [address] [place] [address] Dr. Con Santana Hemoglobin (Bld) [Mass/Vol] 9.5 g/dL Critically low 12.0-16.0 [facility] Comment on above: Performed By: #### P OCGLUC #### [facility] [address] [place] [address] Dr. Con Santana IG # 0.09 10e3/ul Critically high 0.00-0.03 [facility] Comment on above: Performed By: #### P OCGLUC #### [facility] [address] [place] [address] Dr. Con Santana IG % 0.8 % Critically high 0.0-0.5 [facility] Comment on above: Performed By: #### P OCGLUC #### [facility] [address] [place] [address] Dr. Con Santana LYMPH # 0.8 103/ul Critically low 1.2-3.8 [facility] Comment on above: Performed By: #### P OCGLUC #### [facility] [address] [place] [address] Dr. Con Santana Lymphocytes/100 WBC (Bld) 6.9 % Critically low 20.5-60.0 [facility] Comment on above: Performed By: #### P OCGLUC #### [facility] [address] [place], [place] [id number] Dr. Con Santana MANUAL DIFF REQ NO Normal [facility] Comment on above: Performed By: #### P OCGLUC #### [facility] [address] [place] [address] Dr. Con Santana MCH (RBC) [Entitic mass] 31.3 pg Normal 26.7-34.0 [facility] Comment on above: Performed By: #### P OCGLUC #### [facility] [address] [place] [address] Dr. Con Santana MCHC (RBC) [Mass/Vol] 33.3 g/dL Normal 29.9-35.2 [facility] Comment on above: Performed By: #### P OCGLUC #### [facility] [address] [place] [address] Dr. Con Santana MCV (RBC) [Entitic vol] 93.8 fL Normal 81.0-99.0 [facility] Comment on above: Performed By: #### P OCGLUC #### [facility] [address] [place] [address] Dr. Con Santana MONO # 0.4 103/ul Normal 0.3-0.8 [facility] Comment on above: Performed By: #### P OCGLUC #### [facility] [address] [place] [address] Dr. Con Santana Monocytes/100 WBC (Bld) 3.1 % Normal 1.7-12.0 [facility] Comment on above: Performed By: #### P OCGLUC #### [facility] [address] [place] [address] Dr. Con Santana NEUT # 10.4 103/ul Critically high 1.4-6.[address] [facility] Comment on above: Performed By: #### P OCGLUC #### [facility] [address] [place] [address] Dr. Con Santana Neutrophils/100 WBC (Bld) 89.0 % Critically high 43.0-75.0 [facility] Comment on above: Performed By: #### P OCGLUC #### [facility] [address] [place] [address] Dr. Con Santana Platelet mean volume (Bld) [Entitic vol] 10.8 fL Normal 9.5-13.5 [facility] Comment on above: Performed By: #### P OCGLUC #### [facility] [address] [address] [address] Con Santana PLT 189 103/ul Normal 150-450 [facility] Comment on above: Performed By: #### P OCGLUC #### [facility] [address] [address] [address] Con Santana RBC 3.04 106/ul Critically low 4.20-5.40 [facility] Comment on above: Performed By: #### P OCGLUC #### [facility] [address] [address] [address] Con Santana WBC 11.7 103/ul Critically high 4.0-11.0 [facility] Comment on above: Performed By: #### P OCGLUC #### [facility] [address] [address] [address] Con Santana POINT OF CARE GLUCOSEon 04-0 Glucose [Mass/Vol] 194 mg/dL Critically high 74-106 [facility] Comment on above: Performed By: #### C BC #### [facility] [address] [address] [address] Con Santana Glucose [Mass/Vol] 191 mg/dL Critically high 74-106 [facility] Comment on above: Performed By: #### I NFLUAB #### [facility] [address] [place] [address] Dr. Con Santana Glucose [Mass/Vol] 169 mg/dL Critically high 74-106 [facility] Comment on above: Performed By: #### P OCGLUC #### [facility] [address] [address] [address] Con Santana Glucose [Mass/Vol] 173 mg/dL Critically high 74-106 [facility] Comment on above: Performed By: #### I NFLUAB #### [facility] [address] [address] [address] Con Santana PROF CHEM 8 (BAS METB)on Anion gap [Moles/Vol] 18.8 mmol/L Normal [facility] Comment on above: Performed By: #### I NFLUAB #### [facility] [address] [place] [address] Dr. Con Santana Calcium [Mass/Vol] 7.3 mg/dL Critically low 8.5-10.1 [facility] Comment on above: Performed By: #### I NFLUAB #### [facility] [address] [address] [address] Con Santana Chloride [Moles/Vol] 109 mmol/L Critically high 98-107 [facility] Comment on above: Performed By: #### I NFLUAB #### [facility] [address] [place] [address] Dr. Con Santana CO2 [Moles/Vol] 17.3 mmol/L Critically low 21.0-32.0 [facility] Comment on above: Performed By: #### I NFLUAB #### [facility] [address] [place] [address] Dr. Con Santana Creatinine [Mass/Vol] 1.28 mg/dL Critically high 0.55-1.02 [facility] Comment on above: Performed By: #### I NFLUAB #### [facility] [address] [place] [address] Dr. Con Santana EGFR-AF CITIZEN OF [place] 48 mL/min/1.73m2 Critically low >=60 [facility] Comment on above: Performed By: #### I NFLUAB #### [facility] [address] [address] [address] Con Santana EGFR-NON AF CITIZEN OF [place] 40 mL/min/1.73m2 Critically low >=60 [facility] Comment on above: Performed By: #### I NFLUAB #### [facility] [address] [place] [address] Dr. Con Santana Glucose [Mass/Vol] 161 mg/dL Critically high 74-106 [facility] Comment on above: Performed By: #### I NFLUAB #### [facility] [address] [address] [address] Con Santana Potassium [Moles/Vol] 3.1 mmol/L Critically low 3.5-5.1 [facility] Comment on above: Performed By: #### I NFLUAB #### [facility] [address] [address] [address] Con Santana Sodium [Moles/Vol] 142 mmol/L Normal 136-145 [facility] Comment on above: Performed By: #### I NFLUAB #### [facility] [address] [place] [address] Dr. Con Santana Urea nitrogen [Mass/Vol] 24.0 mg/dL Critically high 7.0-18.0 [facility] Comment on above: Performed By: #### I NFLUAB #### [facility] [address] [place] [address] Dr. Con Santana Urea nitrogen/Creatinine [Mass ratio] 18.8 mg/mg Normal [facility] Comment on above: Performed By: #### I NFLUAB #### [facility] [address] [place] [address] Dr. Con Santana UA RANDOM W/MICROSCOPICon BACTERIA NONE SEEN Normal NONE SEEN [facility] Comment on above: Performed By: #### P OCGLUC #### [facility] [address] [place] [address] Dr. Con Santana Bilirubin Ql (U) Negative Normal NEGATIVE [facility] Comment on above: Performed By: #### P OCGLUC #### [facility] [address] [place] [address] Dr. Con Santana CAST NONE SEEN Normal NONE SEEN [facility] Comment on above: Performed By: #### P OCGLUC #### [facility] [address] [place] [address] Dr. Con Santana Clarity (U) CLEAR Normal CLEAR [facility] Comment on above: Performed By: #### P OCGLUC #### [facility] [address] [place] [address] Dr. Con Santana Color (U) LT. YELLOW Normal YELLOW [facility] Comment on above: Performed By: #### P OCGLUC #### [facility] [address] [address] [address] Con Santana Crystals LM Nom (Urine sed) NONE SEEN Normal NONE SEEN [facility] Comment on above: Performed By: #### P OCGLUC #### [facility] [address] [address] [address] Con Santana Epithelial cells LM Ql (Urine sed) FEW Abnormal NONE SEEN /RARE [facility] Comment on above: Performed By: #### P OCGLUC #### [facility] [address] [address] [address] Con Santana Glucose Ql (U) Negative Normal NEGATIVE [facility] Comment on above: Performed By: #### P OCGLUC #### [facility] [address] [place] [address] Dr. Con Santana Hemoglobin Ql (U) Negative Normal NEGATIVE [facility] Comment on above: Performed By: #### P OCGLUC #### [facility] [address] [address] [address] Con Santana Ketones Ql (U) Negative Normal NEGATIVE [facility] Comment on above: Performed By: #### P OCGLUC #### [facility] [address] [address] [address] Con Santana LEUKOCYTES TRACE Abnormal NEGATIVE [facility] Comment on above: Performed By: #### P OCGLUC #### [facility] [address] [address] [address] Con Santana MUCOUS NONE SEEN Normal NONE SEEN [facility] Comment on above: Performed By: #### P OCGLUC #### [facility] [address] [address] [address] Con Santana Nitrite Ql (U) Negative Normal NEGATIVE [facility] Comment on above: Performed By: #### P OCGLUC #### [facility] [address] [place] [address] Dr. Con Santana pH (U) 5.5 [pH] Normal 5-9 [facility] Comment on above: Performed By: #### P OCGLUC #### [facility] [address] [address] [address] Con Santana RBC 0-2 Normal 0-2 [facility] Comment on above: Performed By: #### P OCGLUC #### [facility] [address] [address] [address] Con Santana SPEC GRAVITY 1.010 Normal 1.005-<=1.[address] [facility] Comment on above: Performed By: #### P OCGLUC #### [facility] [address] [address] [address] Con Santana UA PROTEIN Negative Normal NEGATIVE/ TRACE [facility] Comment on above: Performed By: #### P OCGLUC #### [facility] [address] [place] [address] Dr. Con Santana Urobilinogen Qn (U) 0.2 {Godfrey'U}/dL Normal 0.2 - 1. 0 [facility] Comment on above: Performed By: #### P OCGLUC #### [facility] [address] [address] [address] Con Santana WBC 2-5 Abnormal NONE SEEN [facility] Comment on above: Performed By: #### P OCGLUC #### [facility] [address] [place] [address] Dr. Con Santana XR CHEST 2 Von [...] ELEAZAR GUERRA Date: 2022-12-30 11:35 Normal [facility] BNPon 12-29-2022 Natriuretic peptide B (Bld) [Mass/Vol] 4120.0 pg/mL Critically high <=1,800.0 [facility] Comment on above: Performed By: #### E LISA JAVIER #### [facility] [address] [place] [address] Dr. Con Santana Natriuretic peptide B (Bld) [Mass/Vol] 3274.0 pg/mL Critically high <=1,800.0 [facility] Comment on above: Performed By: #### P OCGLUC #### [facility] [address] [place] [address] Dr. Con Santana CBC AUTO DIFFon 12-29-2022 BASO # 0.0 103/ul Normal 0.0-0.1 [facility] Comment on above: Performed By: #### C BC #### [facility] [address] [place] [address] Dr. Con Santana Basophils/100 WBC (Bld) 0.0 % Critically low 0.2-2.0 [facility] Comment on above: Performed By: #### C BC #### [facility] [address] [place] [address] Dr. Con Santana EO # 0.0 103/ul Normal 0.0-0.7 [facility] Comment on above: Performed By: #### C BC #### [facility] [address] [place] [address] Dr. Con Santana Eosinophils/100 WBC (Bld) 0.2 % Critically low 0.9-7.0 [facility] Comment on above: Performed By: #### C BC #### [facility] [address] [place] [address] Dr. Con Santana Erythrocyte distribution width (RBC) [Ratio] 13.6 % Normal 11.0-15.0 [facility] Comment on above: Performed By: #### C BC #### [facility] [address] [place] [address] Dr. Con Santana Hematocrit (Bld) [Volume fraction] 29.8 % Critically low 36.0-48.0 [facility] Comment on above: Performed By: #### C BC #### [facility] [address] [address] [address] Con Santana Hemoglobin (Bld) [Mass/Vol] 9.5 g/dL Critically low 12.0-16.0 [facility] Comment on above: Performed By: #### C BC #### [facility] [address] [address] [address] Con Santana IG # 0.05 10e3/ul Critically high 0.00-0.03 [facility] Comment on above: Performed By: #### C BC #### [facility] [address] [address] [address] Con Santana IG % 0.9 % Critically high 0.0-0.5 [facility] Comment on above: Performed By: #### C BC #### [facility] [address] [address] [address] Con Santana LYMPH # 0.7 103/ul Critically low 1.2-3.8 [facility] Comment on above: Performed By: #### C BC #### [facility] [address] [address] [address] Con Santana Lymphocytes/100 WBC (Bld) 13.0 % Critically low 20.5-60.0 [facility] Comment on above: Performed By: #### C BC #### [facility] [address] [place] [address] Dr. Con Santana MANUAL DIFF REQ NO Normal [facility] Comment on above: Performed By: #### C BC #### [facility] [address] [address] [address] Con Santana MCH (RBC) [Entitic mass] 30.5 pg Normal 26.7-34.0 [facility] Comment on above: Performed By: #### C BC #### [facility] [address] [place] [address] Dr. Con Santana MCHC (RBC) [Mass/Vol] 31.9 g/dL Normal 29.9-35.2 [facility] Comment on above: Performed By: #### C BC #### [facility] [address] [address] [address] Con Santana MCV (RBC) [Entitic vol] 95.8 fL Normal 81.0-99.0 [facility] Comment on above: Performed By: #### C BC #### [facility] [address] [address] [address] Con Santana MONO # 0.1 103/ul Critically low 0.3-0.8 [facility] Comment on above: Performed By: #### C BC #### [facility] [address] [address] [address] Con Santana Monocytes/100 WBC (Bld) 1.5 % Critically low 1.7-12.0 [facility] Comment on above: Performed By: #### C BC #### [facility] [address] [address] [address] Con Santana NEUT # 4.5 103/ul Normal 1.4-6.5 [facility] Comment on above: Performed By: #### C BC #### [facility] [address] [address] [address] Con Santana Neutrophils/100 WBC (Bld) 84.4 % Critically high 43.0-75.0 [facility] Comment on above: Performed By: #### C BC #### [facility] [address] [address] [address] Con Santana Platelet mean volume (Bld) [Entitic vol] 10.3 fL Normal 9.5-13.5 [facility] Comment on above: Performed By: #### C BC #### [facility] [address] [address] [address] Con Santana PLT 178 103/ul Normal 150-450 [facility] Comment on above: Performed By: #### C BC #### [facility] [address] [address] [address] Con Santana RBC 3.11 106/ul Critically low 4.20-5.40 [facility] Comment on above: Performed By: #### C BC #### [facility] [address] [address] [address] Con Santana WBC 5.3 103/ul Normal 4.0-11.0 [facility] Comment on above: Performed By: #### C BC #### [facility] [address] [address] [address] Con Santana BASO # 0.0 103/ul Normal 0.0-0.1 [facility] Comment on above: Performed By: #### C BC #### [facility] [address] [place] [address] Dr. Con aSntana Basophils/100 WBC (Bld) 0.1 % Critically low 0.2-2.0 [facility] Comment on above: Performed By: #### C BC #### [facility] [address] [place] [address] Dr. Con Santana EO # 0.4 103/ul Normal 0.0-0.7 [facility] Comment on above: Performed By: #### C BC #### [facility] [address] [place] [address] Dr. Con Santana Eosinophils/100 WBC (Bld) 5.9 % Normal 0.9-7.0 [facility] Comment on above: Performed By: #### C BC #### [facility] [address] [place] [address] Dr. Con Santana Erythrocyte distribution width (RBC) [Ratio] 13.5 % Normal 11.0-15.0 [facility] Comment on above: Performed By: #### C BC #### [facility] [address] [place] [address] Dr. Con Santana Hematocrit (Bld) [Volume fraction] 29.4 % Critically low 36.0-48.0 [facility] Comment on above: Performed By: #### C BC #### [facility] [address] [place] [address] Dr. Con Santana Hemoglobin (Bld) [Mass/Vol] 9.5 g/dL Critically low 12.0-16.0 [facility] Comment on above: Performed By: #### C BC #### [facility] [address] [address] [address] Con Santana IG # 0.04 10e3/ul Critically high 0.00-0.03 [facility] Comment on above: Performed By: #### C BC #### [facility] [address] [place] [address] Dr. Con Santana IG % 0.6 % Critically high 0.0-0.5 [facility] Comment on above: Performed By: #### C BC #### [facility] [address] [place] [address] Dr. Con Santana LYMPH # 1.1 103/ul Critically low 1.2-3.8 [facility] Comment on above: Performed By: #### C BC #### [facility] [address] [place] [address] Dr. Con Santana Lymphocytes/100 WBC (Bld) 15.7 % Critically low 20.5-60.0 [facility] Comment on above: Performed By: #### C BC #### [facility] [address] [place] [address] Dr. Con Santana MANUAL DIFF REQ NO Normal [facility] Comment on above: Performed By: #### C BC #### [facility] [address] [place] [address] Dr. Con Santana MCH (RBC) [Entitic mass] 31.3 pg Normal 26.7-34.0 [facility] Comment on above: Performed By: #### C BC #### [facility] [address] [place] [address] Dr. Con Santana MCHC (RBC) [Mass/Vol] 32.3 g/dL Normal 29.9-35.2 [facility] Comment on above: Performed By: #### C BC #### [facility] [address] [place] [address] Dr. Con Santana MCV (RBC) [Entitic vol] 96.7 fL Normal 81.0-99.0 [facility] Comment on above: Performed By: #### C BC #### [facility] [address] [place] [address] Dr. Con Santana MONO # 0.4 103/ul Normal 0.3-0.8 [facility] Comment on above: Performed By: #### C BC #### [facility] [address] [place] [address] Dr. Con Santana Monocytes/100 WBC (Bld) 5.9 % Normal 1.7-12.0 [facility] Comment on above: Performed By: #### C BC #### [facility] [address] [place] [address] Dr. Con Santana NEUT # 5.0 103/ul Normal 1.4-6.5 [facility] Comment on above: Performed By: #### C BC #### [facility] [address] [place] [address] Dr. Con Santana Neutrophils/100 WBC (Bld) 71.8 % Normal 43.0-75.0 [facility] Comment on above: Performed By: #### C BC #### [facility] [address] [place] [address] Dr. Con Santana Platelet mean volume (Bld) [Entitic vol] 10.0 fL Normal 9.5-13.5 [facility] Comment on above: Performed By: #### C BC #### [facility] [address] [place] [address] Dr. Con Santana PLT 173 103/ul Normal 150-450 [facility] Comment on above: Performed By: #### C BC #### [facility] [address] [place] [address] Dr. Con Santana RBC 3.04 106/ul Critically low 4.20-5.[address] [facility] Comment on above: Performed By: #### C BC #### [facility] [address] [place] [address] Dr. Con Santana WBC 7.0 103/ul Normal 4.0-11.0 [facility] Comment on above: Performed By: #### C BC #### [facility] [address] [place] [address] Dr. Con Santana ECHOCARDIO M/2D COMPLETEon 0 12-29-2022 ECHOCARDIO M/2D COMPLETE Patient: SALOME DOMINGUEZ Exam Date: 12/29/2022 : 1940 Gender:F Ordering : SIVA CROSS Admission #: [id number] Family : DR MATHIASLAS MANUEL . Order #: [id number] CLICK HERE TO VIEW EXAM ECHOCARDIOGRAM REPORT [...] Varma M.D. on 01/01/2023 at 09:24 Normal [facility] LACTATE/LACTIC ACIDon 2022 Lactate [Moles/Vol] 0.6 mmol/L Normal 0.4-2.0 [facility] Comment on above: Performed By: #### C BC #### [facility] [address] [place] [address] Dr. Con Santana PH VENOUS BLOODon 12-29-2022 PCO2 VENOUS 34.6 mmHg Critically low 40.0-52.0 [facility] Comment on above: Performed By: #### C BC #### [facility] [address] [address] [address] Con Santana pH VENOUS 7.343 Normal 7.330-7.430 [facility] Comment on above: Performed By: #### C BC #### [facility] [address] [place] [address] Dr. Con Santana POINT OF CARE GLUCOSEon Glucose [Mass/Vol] 217 mg/dL Critically high -106 [facility] Comment on above: Performed By: #### C BC #### [facility] [address] [address] [address] Con Santana Glucose [Mass/Vol] 199 mg/dL Critically high -106 [facility] Comment on above: Performed By: #### C BC #### [facility] [address] [address] [address] Con Santana Glucose [Mass/Vol] 202 mg/dL Critically high -106 [facility] Comment on above: Performed By: #### P OCGLUC #### [facility] [address] [address] [address] Con Santana PROF 14(COMP METB)on 023 Albumin [Mass/Vol] 2.6 g/dL Critically low 3.4-5.0 [facility] Comment on above: Performed By: #### P OCGLUC #### [facility] [address] [place] [address] Dr. Con Santana Albumin/Globulin [Mass ratio] 1.1 {ratio} Normal [facility] Comment on above: Performed By: #### P OCGLUC #### [facility] [address] [address] [address] Con Santana ALP [Catalytic activity/Vol] 67 U/L Normal 46-116 [facility] Comment on above: Performed By: #### P OCGLUC #### [facility] [address] [address] [address] Con Santana ALT [Catalytic activity/Vol] 69 U/L Critically high 14-59 [facility] Comment on above: Performed By: #### P OCGLUC #### [facility] [address] [address] [address] Con Santana Anion gap [Moles/Vol] 15.0 mmol/L Normal [facility] Comment on above: Performed By: #### P OCGLUC #### [facility] [address] [address] [address] Con Santana AST [Catalytic activity/Vol] 24 U/L Normal 15-37 [facility] Comment on above: Performed By: #### P OCGLUC #### [facility] [address] [address] [address] Con Santana Bilirubin [Mass/Vol] 0.3 mg/dL Normal 0.2-1.0 [facility] Comment on above: Performed By: #### P OCGLUC #### [facility] [address] [address] [address] Con Santana Calcium [Mass/Vol] 7.4 mg/dL Critically low 8.5-10.1 [facility] Comment on above: Performed By: #### P OCGLUC #### [facility] [address] [address] [address] Con Santana Chloride [Moles/Vol] 110 mmol/L Critically high 98-107 [facility] Comment on above: Performed By: #### P OCGLUC #### [facility] [address] [address] [address] Con Santana CO2 [Moles/Vol] 21.1 mmol/L Normal 21.0-32.0 [facility] Comment on above: Performed By: #### P OCGLUC #### [facility] [address] [address] [address] Con Santana Creatinine [Mass/Vol] 0.79 mg/dL Normal 0.55-1.02 [facility] Comment on above: Performed By: #### P OCGLUC #### [facility] [address] [address] [address] Con Santana EGFR-AF CITIZEN OF [place] >60 Normal >=60 [facility] Comment on above: Performed By: #### P OCGLUC #### [facility] [address] [address] [address] Con Santana EGFR-NON AF CITIZEN OF [place] >60 Normal >=60 [facility] Comment on above: Performed By: #### P OCGLUC #### [facility] [address] [address] [address] Con Santana Globulin (S) [Mass/Vol] 2.3 g/dL Normal [facility] Comment on above: Performed By: #### P OCGLUC #### [facility] [address] [address] [address] Con Santana Glucose [Mass/Vol] 115 mg/dL Critically high 74-106 [facility] Comment on above: Performed By: #### P OCGLUC #### [facility] [address] [address] [address] Con Santana Potassium [Moles/Vol] 4.1 mmol/L Normal 3.5-5.1 [facility] Comment on above: Performed By: #### P OCGLUC #### [facility] [address] [address] [address] Con Santana Protein [Mass/Vol] 4.9 g/dL Critically low 6.4-8.2 [facility] Comment on above: Performed By: #### P OCGLUC #### [facility] [address] [address] [address] Con Santana Sodium [Moles/Vol] 142 mmol/L Normal 136-145 [facility] Comment on above: Performed By: #### P OCGLUC #### [facility] [address] [place] [address] Dr. Con Santana Urea nitrogen [Mass/Vol] 19.0 mg/dL Critically high 7.0-18.0 [facility] Comment on above: Performed By: #### P OCGLUC #### [facility] [address] [place] [address] Dr. Con Santana Urea nitrogen/Creatinine [Mass ratio] 24.1 mg/mg Normal [facility] Comment on above: Performed By: #### P OCGLUC #### [facility] [address] [place] [address] Dr. Con Santana PROF CHEM 8 (BAS METB)on Anion gap [Moles/Vol] 13.5 mmol/L Normal [facility] Comment on above: Performed By: #### TIM INTERIANORO #### [facility] [address] [place] [address] Dr. Con Santana Calcium [Mass/Vol] 7.6 mg/dL Critically low 8.5-10.1 [facility] Comment on above: Performed By: #### TIM INTERIANORO #### [facility] [address] [place] [address] Dr. Con Santana Chloride [Moles/Vol] 110 mmol/L Critically high 98-107 [facility] Comment on above: Performed By: #### Anaya JAVIER UMICRO #### [facility] [address] [place] [address] Dr. Con Santana CO2 [Moles/Vol] 18.7 mmol/L Critically low 21.0-32.0 [facility] Comment on above: Performed By: #### TIM INTERIANORO #### [facility] [address] [place] [address] Dr. Con Santana Creatinine [Mass/Vol] 0.79 mg/dL Normal 0.55-1.02 [facility] Comment on above: Performed By: #### Anaya JAVIER UMICRO #### [facility] [address] [place] [address] Dr. Con Santana EGFR-AF CITIZEN OF [place] >60 Normal >=60 [facility] Comment on above: Performed By: #### LISA INTERIANO #### [facility] [address] [place] [address] Dr. Con Santana EGFR-NON AF CITIZEN OF [place] >60 Normal >=60 [facility] Comment on above: Performed By: #### LISA INTERIANO #### [facility] [address] [place] [address] Dr. Con Santana Glucose [Mass/Vol] 155 mg/dL Critically high 74-106 [facility] Comment on above: Performed By: #### LISA INTERIANO #### [facility] [address] [place] [address] Dr. Con Santana Potassium [Moles/Vol] 4.2 mmol/L Normal 3.5-5.1 [facility] Comment on above: Performed By: #### LISA INTERIANO #### [facility] [address] [place] [address] Dr. Con Santana Sodium [Moles/Vol] 138 mmol/L Normal 136-145 [facility] Comment on above: Performed By: #### LISA INTERIANO #### [facility] [address] [place] [address] Dr. Con Santana Urea nitrogen [Mass/Vol] 21.0 mg/dL Critically high 7.0-18.0 [facility] Comment on above: Performed By: #### LISA INTERIANO #### [facility] [address] [place] [address] Dr. Con Santana Urea nitrogen/Creatinine [Mass ratio] 26.6 mg/mg Normal [facility] Comment on above: Performed By: #### TIM INTERIANORO #### [facility] [address] [place] [address] Dr. Con Santana PROTIMEon 12-29-2022 INR Coag (PPP) [Relative time] 1.00 {INR} Normal [facility] Comment on above: Performed By: #### P OCGLUC #### [facility] [address] [place] [address] Dr. Con Santana INR GUIDELINES SEE BELOW Normal [facility] Comment on above: Result Comment: CANDELARIA RED INR: 2.0 - 3.0 CONDITIONS NOT LISTED BELOW 2.5 - 3.5 FOR PROSTHETIC HEART VALVE REPLACEMENT 2.5 - 3.5 RECURRENT THROMBOSIS Performed By: #### P OCGLUC #### [facility] [address] [place] [address] Dr. Con Santana PT Coag (PPP) [Time] 10.6 s Normal 9.0-11.6 [facility] Comment on above: Performed By: #### P OCGLUC #### [facility] [address] [place] [address] Dr. Con Santana PTTon 12-29-2022 aPTT Coag (Bld) [Time] 28.2 s Normal 22.3-36.2 [facility] Comment on above: Performed By: #### I NFLUAB #### [facility] [address] [place] [address] Dr. Con Santana TROPONIN, HIGH SENSITIVITYon 12-29-2022 HSTROP 16.0 pg/mL Normal 4.0-51.3 [facility] Comment on above: Result Comment: CUT- OFF POINTS HAVE BEEN ESTABLISHED BASED ON THE FOURTH UNIVERSAL DEFINITIONS OF MYOCARDIAL INFARCTION. THE UPPER REFERENCE LIMIT (URL) OF TROPONIN, DEFINED THE 99TH PERCENTILE OF cTnI DISTRIBUTION IN A REFERENCE POPULATION, HAS BEEN CONFIRMED THE DECISION THRESHOLD FOR HI DIAGNOSIS. Performed By: #### H STROPN #### [facility] [address] [place] [address] Dr. Con Santana HSTROP 23.6 pg/mL Normal 4.0-51.3 [facility] Comment on above: Result Comment: CUT- OFF POINTS HAVE BEEN ESTABLISHED BASED ON THE FOURTH UNIVERSAL DEFINITIONS OF MYOCARDIAL INFARCTION. THE UPPER REFERENCE LIMIT (URL) OF TROPONIN, DEFINED THE 99TH PERCENTILE OF cTnI DISTRIBUTION IN A REFERENCE POPULATION, HAS BEEN CONFIRMED THE DECISION THRESHOLD FOR HI DIAGNOSIS. Performed By: #### P OCGLUC #### [facility] [address] [place] [address] Dr. Con Santana XR CHEST 1 Von [...] TRINI CISNEROS Date: 2022-12-28 22:49 Normal [facility]on SARS-CoV-2 (COVID-19) RNA JEANE+probe Ql (Unsp spec) Not detected Normal NOT DETECTED [facility] Comment on above: Result Comment: When diagnostic [...] for this test is supported by the [place] of Health and Human Service's declaration that [...] used). Performed By: #### C VDTBH #### [facility] [address] [place] [address] Dr. Con Santana PH VENOUS BLOODon 12-28-2022 PCO2 VENOUS 40.4 mmHg Normal 40.0-52.0 [facility] Comment on above: Performed By: #### I NFLUAB #### [facility] [address] [place] [address] Dr. Con Santana pH VENOUS 7.297 Critically low 7.330-7.[address] [facility] Comment on above: Performed By: #### I NFLUAB #### [facility] [address] [place] [address] Dr. Con Santana CBC W MANUAL DIFFon 12-23-19 23 ATYPICAL LYMPH # Normal [facility] Comment on above: Performed By: #### C BC #### [facility] [address] [place] [address] Dr. Con Santana ATYPICAL LYMPH % Normal [facility] Comment on above: Performed By: #### C BC #### [facility] [address] [place] [address] Dr. Con Santana BAND # 0.0 103/ul Normal 0.0-0.3 [facility] Comment on above: Performed By: #### C BC #### [facility] [address] [place] [address] Dr. Con Santana BAND % 0 % Normal 0-5 [facility] Comment on above: Performed By: #### C BC #### [facility] [address] [place] [address] Dr. Con Santana BASOM # 0.00 103/ul Normal 0.00-0.10 [facility] Comment on above: Performed By: #### C BC #### [facility] [address] [place] [address] Dr. Con Santana BASOM % 0.0 % Critically low 0.2-2.0 [facility] Comment on above: Performed By: #### C BC #### [facility] [address] [place] [address] Dr. Con Santana BLAST # Normal [facility] Comment on above: Performed By: #### C BC #### [facility] [address] [place] [address] Dr. Con Santana BLAST % Normal [facility] Comment on above: Performed By: #### C BC #### [facility] [address] [place] [address] Dr. Con Santana CORRECTED WBC Normal 4.0-11.0 [facility] Comment on above: Performed By: #### C BC #### [facility] [address] [address] [address] Con Santana EOS # 0.00 103/ul Normal 0.00-0.70 [facility] Comment on above: Performed By: #### C BC #### [facility] [address] [address] [address] Con Santana EOS% 0.0 % Critically low 0.9-7.0 [facility] Comment on above: Performed By: #### C BC #### [facility] [address] [address] [address] Con Santana HCT 31.2 % Critically low 36.0-48.0 [facility] Comment on above: Performed By: #### C BC #### [facility] [address] [address] [address] Con Santana HGB 10.2 g/dl Critically low 12.0-16.0 [facility] Comment on above: Performed By: #### C BC #### [facility] [address] [address] [address] Con Santana LYMPHM # 0.32 103/ul Critically low 1.20-3.80 [facility] Comment on above: Performed By: #### C BC #### [facility] [address] [address] [address] Con Santana LYMPHM% 3.0 % Critically low 20.5-60.0 [facility] Comment on above: Performed By: #### C BC #### [facility] [address] [address] [address] Con Santana MCH 30.7 pg Normal 26.7-34.0 [facility] Comment on above: Performed By: #### C BC #### [facility] [address] [address] [address] Con Santana MCHC 32.7 g/dl Normal 29.9-35.2 [facility] Comment on above: Performed By: #### C BC #### [facility] [address] [place] [address] Dr. Con Santana MCV 94.0 fL Normal 81.0-99.0 [facility] Comment on above: Performed By: #### C BC #### [facility] [address] [place] [address] Dr. Con Santana METAMYELOCYTE # Normal [facility] Comment on above: Performed By: #### C BC #### [facility] [address] [place] [address] Dr. Con Santana METAMYELOCYTE % Normal [facility] Comment on above: Performed By: #### C BC #### [facility] [address] [place] [address] Dr. Con Santana MONOM# 0.11 103/ul Critically low 0.30-0.80 [facility] Comment on above: Performed By: #### C BC #### [facility] [address] [place] [address] Dr. Con Santana MONOM% 1.0 % Critically low 1.7-12.0 [facility] Comment on above: Performed By: #### C BC #### [facility] [address] [place] [address] Dr. Con Santana MPV 10.6 fL Normal 9.5-13.5 [facility] Comment on above: Performed By: #### C BC #### [facility] [address] [place] [address] Dr. Con Santana MYELOCYTE # Normal [facility] Comment on above: Performed By: #### C BC #### [facility] [address] [place] [address] Dr. Con Santana MYELOCYTE % Normal [facility] Comment on above: Performed By: #### C BC #### [facility] [address] [place] [address] Dr. Con Santana NRBC Normal [facility] Comment on above: Performed By: #### C BC #### [facility] [address] [place] [address] Dr. Con Santana PLT 242 103/ul Normal 150-450 [facility] Comment on above: Performed By: #### C BC #### [facility] [address] [address] [address] Con Santana RBC 3.32 106/ul Critically low 4.20-5.40 [facility] Comment on above: Performed By: #### C BC #### [facility] [address] [address] [address] Con Santana RDW 13.2 % Normal 11.0-15.0 [facility] Comment on above: Performed By: #### C BC #### [facility] [address] [address] [address] Con Santana SEG # 10.18 103/ul Critically high 1.40-6.50 [facility] Comment on above: Performed By: #### C BC #### [facility] [address] [address] [address] Con Santana SEG % 96.0 % Critically high 43.0-75.0 [facility] Comment on above: Performed By: #### C BC #### [facility] [address] [address] [address] Con Santana WBC 10.6 103/ul Normal 4.0-11.0 [facility] Comment on above: Performed By: #### C BC #### [facility] [address] [address] [address] Con Santana POINT OF CARE GLUCOSEon 11-27 Glucose [Mass/Vol] 139 mg/dL Critically high 74-106 [facility] Comment on above: Performed By: #### I NFLUAB #### [facility] [address] [address] [address] Con Santana Glucose [Mass/Vol] 151 mg/dL Critically high -106 [facility] Comment on above: Performed By: #### I NFLUAB #### [facility] [address] [address] [address] Con Santana Glucose [Mass/Vol] 200 mg/dL Critically high -106 [facility] Comment on above: Performed By: #### P OCGLUC #### [facility] [address] [address] [address] Con Santana PROF CHEM 8 (BAS METB)on Anion gap [Moles/Vol] 17.1 mmol/L Normal [facility] Comment on above: Performed By: #### P OCGLUC #### [facility] [address] [address] [address] Con Santana Calcium [Mass/Vol] 7.7 mg/dL Critically low 8.5-10.1 [facility] Comment on above: Performed By: #### P OCGLUC #### [facility] [address] [address] [address] Con Santana Chloride [Moles/Vol] 111 mmol/L Critically high 98-107 [facility] Comment on above: Performed By: #### P OCGLUC #### [facility] [address] [place] [address] Dr. Con Santana CO2 [Moles/Vol] 17.1 mmol/L Critically low 21.0-32.0 [facility] Comment on above: Performed By: #### P OCGLUC #### [facility] [address] [place] [address] Dr. Con Santana Creatinine [Mass/Vol] 1.46 mg/dL Critically high 0.55-1.02 [facility] Comment on above: Performed By: #### P OCGLUC #### [facility] [address] [place] [address] Dr. Con Santana EGFR-AF CITIZEN OF [place] 41 mL/min/1.73m2 Critically low >=60 [facility] Comment on above: Performed By: #### P OCGLUC #### [facility] [address] [place] [address] Dr. Con Santana EGFR-NON AF CITIZEN OF [place] 34 mL/min/1.73m2 Critically low >=60 [facility] Comment on above: Performed By: #### P OCGLUC #### [facility] [address] [place] [address] Dr. Con Santana Glucose [Mass/Vol] 167 mg/dL Critically high 74-106 [facility] Comment on above: Performed By: #### P OCGLUC #### [facility] [address] [address] [address] Con Santana Potassium [Moles/Vol] 3.2 mmol/L Critically low 3.5-5.1 [facility] Comment on above: Performed By: #### P OCGLUC #### [facility] [address] [address] [address] Con Santana Sodium [Moles/Vol] 142 mmol/L Normal 136-145 [facility] Comment on above: Performed By: #### P OCGLUC #### [facility] [address] [address] [address] Con Santana Urea nitrogen [Mass/Vol] 40.0 mg/dL Critically high 7.0-18.0 [facility] Comment on above: Performed By: #### P OCGLUC #### [facility] [address] [place] [address] Dr. Con Santana Urea nitrogen/Creatinine [Mass ratio] 27.4 mg/mg Normal [facility] Comment on above: Performed By: #### P OCGLUC #### [facility] [address] [place] [address] Dr. Con Santana XR CHEST 1 Von [...] BRINA HENRY Date: 2022-12-22 07:32 Normal [facility] POINT OF CARE GLUCOSEon 11-27 Glucose [Mass/Vol] 195 mg/dL Critically high 74-106 [facility] Comment on above: Performed By: #### P OCGLUC #### [facility] [address] [place] [address] Dr. Con Santana Glucose [Mass/Vol] 174 mg/dL Critically high 74-106 [facility] Comment on above: Performed By: #### C BC #### [facility] [address] [address] [address] Con Santana Glucose [Mass/Vol] 148 mg/dL Critically high 74-106 [facility] Comment on above: Performed By: #### C BC #### [facility] [address] [place] [address] Dr. Con Santana BNPon 12-20-2022 Natriuretic peptide B (Bld) [Mass/Vol] 1276.0 pg/mL Normal <=1,800.0 [facility] Comment on above: Performed By: #### H STROPN #### [facility] [address] [place] [address] Dr. Con Santana CARDIAC MAXIMILIANO ADMITon 023 CK [Catalytic activity/Vol] 101 U/L Normal 26-192 [facility] Comment on above: Performed By: #### H STROPN #### [facility] [address] [place] [address] Dr. Con Santana CK.MB [Mass/Vol] 1.61 ng/mL Normal <=3.60 [facility] Comment on above: Performed By: #### H STROPN #### [facility] [address] [place] [address] Dr. Con Santana HSTROP 19.8 pg/mL Normal 4.0-51.3 [facility] Comment on above: Result Comment: CUT- OFF POINTS HAVE BEEN ESTABLISHED BASED ON THE FOURTH UNIVERSAL DEFINITIONS OF MYOCARDIAL INFARCTION. THE UPPER REFERENCE LIMIT (URL) OF TROPONIN, DEFINED THE 99TH PERCENTILE OF cTnI DISTRIBUTION IN A REFERENCE POPULATION, HAS BEEN CONFIRMED THE DECISION THRESHOLD FOR HI DIAGNOSIS. Performed By: #### H STROPN #### [facility] [address] [address] [address] Con Santana RAMONA 76 ng/mL Normal 9-82 [facility] Comment on above: Performed By: #### H STROPN #### [facility] [address] [address] [address] Con Santana CBC AUTO DIFFon 12-20-2022 BASO # 0.1 103/ul Normal 0.0-0.1 [facility] Comment on above: Performed By: #### P OCGLUC #### [facility] [address] [address] [address] Con Santana Basophils/100 WBC (Bld) 0.9 % Normal 0.2-2.0 [facility] Comment on above: Performed By: #### P OCGLUC #### [facility] [address] [place] [address] Dr. Con Santana EO # 0.8 103/ul Critically high 0.0-0.7 [facility] Comment on above: Performed By: #### P OCGLUC #### [facility] [address] [address] [address] Con Santana Eosinophils/100 WBC (Bld) 12.8 % Critically high 0.9-7.0 [facility] Comment on above: Performed By: #### P OCGLUC #### [facility] [address] [place] [address] Dr. Con Santana Erythrocyte distribution width (RBC) [Ratio] 13.0 % Normal 11.0-15.0 [facility] Comment on above: Performed By: #### P OCGLUC #### [facility] [address] [place] [address] Dr. Con Santana Hematocrit (Bld) [Volume fraction] 40.9 % Normal 36.0-48.0 [facility] Comment on above: Performed By: #### P OCGLUC #### [facility] [address] [place] [address] Dr. Con Santana Hemoglobin (Bld) [Mass/Vol] 13.3 g/dL Normal 12.0-16.0 [facility] Comment on above: Performed By: #### P OCGLUC #### [facility] [address] [address] [address] Con Santana IG # 0.01 10e3/ul Normal 0.00-0.03 [facility] Comment on above: Performed By: #### P OCGLUC #### [facility] [address] [address] [address] Con Santana IG % 0.2 % Normal 0.0-0.5 [facility] Comment on above: Performed By: #### P OCGLUC #### [facility] [address] [address] [address] Con Santana LYMPH # 3.3 103/ul Normal 1.2-3.8 [facility] Comment on above: Performed By: #### P OCGLUC #### [facility] [address] [place] [address] Dr. Con Santana Lymphocytes/100 WBC (Bld) 51.5 % Normal 20.5-60.0 [facility] Comment on above: Performed By: #### P OCGLUC #### [facility] [address] [address] [address] Con Santana MANUAL DIFF REQ NO Normal [facility] Comment on above: Performed By: #### P OCGLUC #### [facility] [address] [place] [address] Dr. Con Santana MCH (RBC) [Entitic mass] 31.3 pg Normal 26.7-34.0 [facility] Comment on above: Performed By: #### P OCGLUC #### [facility] [address] [address] [address] Con Santana MCHC (RBC) [Mass/Vol] 32.5 g/dL Normal 29.9-35.2 [facility] Comment on above: Performed By: #### P OCGLUC #### [facility] [address] [place] [address] Dr. Con Santana MCV (RBC) [Entitic vol] 96.2 fL Normal 81.0-99.0 [facility] Comment on above: Performed By: #### P OCGLUC #### [facility] [address] [address] [address] Con Santana MONO # 0.5 103/ul Normal 0.3-0.8 [facility] Comment on above: Performed By: #### P OCGLUC #### [facility] [address] [address] [address] Con Santana Monocytes/100 WBC (Bld) 7.0 % Normal 1.7-12.0 [facility] Comment on above: Performed By: #### P OCGLUC #### [facility] [address] [place] [address] Dr. Con Santana NEUT # 1.8 103/ul Normal 1.4-6.5 [facility] Comment on above: Performed By: #### P OCGLUC #### [facility] [address] [place] [address] Dr. Con Santana Neutrophils/100 WBC (Bld) 27.6 % Critically low 43.0-75.0 [facility] Comment on above: Performed By: #### P OCGLUC #### [facility] [address] [place] [address] Dr. Con Santana Platelet mean volume (Bld) [Entitic vol] 9.9 fL Normal 9.5-13.5 [facility] Comment on above: Performed By: #### P OCGLUC #### [facility] [address] [place] [address] Dr. Con Santaan PLT 286 103/ul Normal 150-450 [facility] Comment on above: Performed By: #### P OCGLUC #### [facility] [address] [place] [address] Dr. Con Santana RBC 4.25 106/ul Normal 4.20-5.40 [facility] Comment on above: Performed By: #### P OCGLUC #### [facility] [address] [place] [address] Dr. Con Santana WBC 6.5 103/ul Normal 4.0-11.0 [facility] Comment on above: Performed By: #### P OCGLUC #### [facility] [address] [place] [address] Dr. Con Santana CULTURE BLOODon 12-20-2022 Microscopic examination of blood, culture Culture Observations: NO GROWTH AT 5 DAYS. Normal [facility] Comment on above: Performed By: #### B LDCX2 #### [facility] [address] [place] [address] Dr. Con Santana Microscopic examination of blood, culture Culture Observations: NO GROWTH AT 5 DAYS. Normal [facility] Comment on above: Performed By: #### C BC #### [facility] [address] [address] [address] Con Santana CULTURE URINEon 12-20-2022 CULTURE URINE Culture Observations : LIGHT GROWTH OF MIXED GENITAL KAL[place]. NO POTENTIAL PATHOGENS SEEN. Normal [facility] Comment on above: Performed By: #### C BC #### [facility] [address] [place] [address] Dr. Con Santana Covid-19 PCR (CVDTB)on 11-27 SARS-CoV-2 (COVID-19) RNA JEANE+probe Ql (Unsp spec) Not detected Normal NOT DETECTED [facility] Comment on above: Result Comment: When diagnostic [...] for this test is supported by the [place] of [employer] and Human Service's declaration that [...] used). Performed By: #### C BC #### [facility] [address] [place] [address] Dr. Con Santana ER URINE PROFILEon 03-25-202 3 Bilirubin Ql (U) Negative Normal NEGATIVE [facility] Comment on above: Performed By: #### Anaya JAVIER UMICRO #### [facility] [address] [place] [address] Dr. Con Santana Clarity (U) CLEAR Normal CLEAR [facility] Comment on above: Performed By: #### E YAYA, UMICRO #### [facility] [address] [place] [address] Dr. Con Santana Color (U) LT. YELLOW Normal YELLOW [facility] Comment on above: Performed By: #### E YAYA UMICRO #### [facility] [address] [place] [address] Dr. Con KNIGHT A micrscopic examination will be performed if indicated. Normal [facility] Comment on above: Performed By: #### E YAYA UMICRO #### [facility] [address] [place] [address] Dr. Con Santana Glucose Ql (U) Negative Normal NEGATIVE [facility] Comment on above: Performed By: #### Anaya JAVIER UMICRO #### [facility] [address] [place] [address] Dr. Con Santana Hemoglobin Ql (U) TRACE-INTACT Abnormal NEGATIVE [facility] Comment on above: Performed By: #### Anaya JAVIER UMICRO #### [facility] [address] [place] [address] Dr. Con Santana Ketones Ql (U) TRACE Abnormal NEGATIVE [facility] Comment on above: Performed By: #### Anaya JAVIER UMICRO #### [facility] [address] [place] [address] Dr. Con Santana LEUKOCYTES MODERATE Abnormal NEGATIVE [facility] Comment on above: Performed By: #### Anaya JAVIER UMICRO #### [facility] [address] [place] [address] Dr. Con Santana Nitrite Ql (U) Positive Abnormal NEGATIVE [facility] Comment on above: Performed By: #### Anaya JAVIER UMICRO #### [facility] [address] [place] [address] Dr. Con Santana pH (U) 7.0 [pH] Normal 5-9 [facility] Comment on above: Performed By: #### LISA INTERIANO #### [facility] [address] [place] [address] Dr. Con Santana SPEC GRAVITY 1.010 Normal 1.005-<=1.[address] [facility] Comment on above: Performed By: #### LISA INTERIANO #### [facility] [address] [place] [address] Dr. Con Santana UA PROTEIN TRACE Normal NEGATIVE/ TRACE [facility] Comment on above: Performed By: #### LISA INTERIANO #### [facility] [address] [place] [address] Dr. Con Santana UR MICRO IND INDICATED Normal [facility] Comment on above: Performed By: #### LISA INTERIANO #### [facility] [address] [place] [address] Dr. Con Santana Urobilinogen Qn (U) 0.2 {Godfrey'U}/dL Normal 0.2 - 1. 0 [facility] Comment on above: Performed By: #### LISA INTERIANO #### [facility] [address] [place] [address] Dr. Con Santana INFLUENZA A AND B AGon 12-20 INFLUENZA A AG Negative Normal NEGATIVE SEE COMMENT [facility] Comment on above: Performed By: #### I NFLUAB #### [facility] [address] [place] [address] Dr. Con Santana INFLUENZA B AG Negative Normal NEGATIVE SEE COMMENT [facility] Comment on above: Performed By: #### I NFLUAB #### [facility] [address] [place] [address] Dr. Con Santana LACTATE/LACTIC ACIDon 2022 Lactate [Moles/Vol] 0.6 mmol/L Normal 0.4-2.0 [facility] Comment on above: Performed By: #### P OCGLUC #### [facility] [address] [address] [address] Con Santana POINT OF CARE GLUCOSEon 11-27 Glucose [Mass/Vol] 217 mg/dL Critically high -106 [facility] Comment on above: Performed By: #### I NFLUAB #### [facility] [address] [address] [address] Con Santana Glucose [Mass/Vol] 204 mg/dL Critically high 74-106 [facility] Comment on above: Performed By: #### P OCGLUC #### [facility] [address] [address] [address] Con Santana Glucose [Mass/Vol] 148 mg/dL Critically high -106 [facility] Comment on above: Performed By: #### C BC #### [facility] [address] [place] [address] Dr. Con Santana PROF 14(COMP METB)on 023 Albumin [Mass/Vol] 3.4 g/dL Normal 3.4-5.0 [facility] Comment on above: Performed By: #### H STROPN #### [facility] [address] [address] [address] Con Santana Albumin/Globulin [Mass ratio] 1.1 {ratio} [facility] Comment on above: Performed By: #### H STROPN #### [facility] [address] [place] [address] Dr. Con Santana ALP [Catalytic activity/Vol] 95 U/L Normal 46-116 [facility] Comment on above: Performed By: #### H STROPN #### [facility] [address] [place] [address] Dr. Con Santana ALT [Catalytic activity/Vol] 22 U/L Normal 14-59 [facility] Comment on above: Performed By: #### H STROPN #### [facility] [address] [place] [address] Dr. Con Santana Anion gap [Moles/Vol] 13.1 mmol/L Normal [facility] Comment on above: Performed By: #### H STROPN #### [facility] [address] [address] [address] Con Santana AST [Catalytic activity/Vol] U/L Critically low 15-37 [facility] Comment on above: Performed By: #### H STROPN #### [facility] [address] [address] [address] Con Santana Bilirubin [Mass/Vol] 0.4 mg/dL Normal 0.2-1.0 [facility] Comment on above: Performed By: #### H STROPN #### [facility] [address] [address] [address] Con Santana Calcium [Mass/Vol] 8.5 mg/dL Normal 8.5-10.1 [facility] Comment on above: Performed By: #### H STROPN #### [facility] [address] [address] [address] Con Santana Chloride [Moles/Vol] 107 mmol/L Normal 98-107 [facility] Comment on above: Performed By: #### H STROPN #### [facility] [address] [address] [address] Con Santana CO2 [Moles/Vol] 22.5 mmol/L Normal 21.0-32.0 [facility] Comment on above: Performed By: #### H STROPN #### [facility] [address] [address] [address] Con Santana Creatinine [Mass/Vol] 0.85 mg/dL Normal 0.55-1.02 [facility] Comment on above: Performed By: #### H STROPN #### [facility] [address] [address] [address] Con Santana EGFR-AF CITIZEN OF [place] >60 Normal >=[address] [facility] Comment on above: Performed By: #### H STROPN #### [facility] [address] [address] [address] Con Santana EGFR-NON AF CITIZEN OF [place] >60 Normal >=60 [facility] Comment on above: Performed By: #### H STROPN #### [facility] [address] [address] [address] Con Santana Globulin (S) [Mass/Vol] 3.2 g/dL Normal [facility] Comment on above: Performed By: #### H STROPN #### [facility] [address] [address] [address] Con Santana Glucose [Mass/Vol] 131 mg/dL Critically high 74-106 [facility] Comment on above: Performed By: #### H STROPN #### [facility] [address] [address] [address] Con Santana Potassium [Moles/Vol] 3.6 mmol/L Normal 3.5-5.1 [facility] Comment on above: Performed By: #### H STROPN #### [facility] [address] [place] [address] Dr. Con Santana Protein [Mass/Vol] 6.6 g/dL Normal 6.4-8.2 [facility] Comment on above: Performed By: #### H STROPN #### [facility] [address] [place] [address] Dr. Con Santana Sodium [Moles/Vol] 139 mmol/L Normal 136-145 [facility] Comment on above: Performed By: #### H STROPN #### [facility] [address] [place] [address] Dr. Con Santana Urea nitrogen [Mass/Vol] 15.0 mg/dL Normal 7.0-18.0 [facility] Comment on above: Performed By: #### H STROPN #### [facility] [address] [place] [address] Dr. Con Santana Urea nitrogen/Creatinine [Mass ratio] 17.6 mg/mg Normal [facility] Comment on above: Performed By: #### H STROPN #### [facility] [address] [place] [address] Dr. Con Santana PROTIMEon 12-20-2022 INR Coag (PPP) [Relative time] 1.08 {INR} Normal [facility] Comment on above: Performed By: #### H STROPN #### [facility] [address] [place] [address] Dr. Con Santana INR GUIDELINES SEE BELOW Normal [facility] [facility] Comment on above: Result Comment: CANDELARIA RED INR: 2.0 - 3.0 CONDITIONS NOT LISTED BELOW 2.5 - 3.5 FOR PROSTHETIC HEART VALVE REPLACEMENT 2.5 - 3.5 RECURRENT THROMBOSIS Performed By: #### H STROPN #### [facility] [address] [place] [address] Dr. Con Santana PT Coag (PPP) [Time] 11.4 s Normal 9.0-11.6 [facility] Comment on above: Performed By: #### H STROPN #### [facility] [address] [place] [address] Dr. Con Santana PTTon 12-20-2022 aPTT Coag (Bld) [Time] 30.8 s Normal 22.3-36.2 [facility] Comment on above: Performed By: #### H STROPN #### [facility] [address] [place] [address] Dr. Con Santana URINE MICROSCOPIC ONLYon BACTERIA MODERATE Abnormal NONE SEEN [facility] Comment on above: Performed By: #### Anaya JAVIER UMICRO #### [facility] [address] [place] [address] Dr. Con Santana Bacteria identified Cx Nom (U) INDICATED Normal [facility] Comment on above: Performed By: #### Anaya JAVIER, UMICRO #### [facility] [address] [place] [address] Dr. Con Santana CAST NONE SEEN Normal NONE SEEN [facility] Comment on above: Performed By: #### Anaya JAVIER, UMICRO #### [facility] [address] [place] [address] Dr. Con Santana Crystals LM Nom (Urine sed) NONE SEEN Normal NONE SEEN [facility] Comment on above: Performed By: #### E RUR, UMICRO #### [facility] [address] [place] [address] Dr. Con Santana Epithelial cells LM Ql (Urine sed) FEW Abnormal NONE SEEN /RARE [facility] Comment on above: Performed By: #### E RUR, UMICRO #### [facility] [address] [address] [address] Con Santana MUCOUS NONE SEEN Normal NONE SEEN [facility] Comment on above: Performed By: #### E RUR, UMICRO #### [facility] [address] [address] [address] Con Santana RBC 2-5 Abnormal 0-2 [facility] Comment on above: Performed By: #### E RUR, UMICRO #### [facility] [address] [address] [address] Con Santana WBC 20-50 Abnormal NONE SEEN [facility] Comment on above: Performed By: #### E TABR, UMICRO #### [facility] [address] [address] [address] Con Santana XR CHEST 1 Von [...] ELEAZAR GUERRA Date: 2022-12-20 05:55 Normal [facility] XR DEXA BONE DENSITYon 07-10 XR DEXA BONE DENSITY DEXA Bone Density Study CLINICAL: Evaluate bone mineral density. Postmenopausal COMPARISON: None FINDINGS: The bone density study was assessed by dual-energy x-ray absorptiometry with the [employer] scanner. The test results are expressed in [...] MATI ATKINS Date: 2022-07-10 16:49 Normal [facility] BNPon 02-14-2022 Natriuretic peptide B (Bld) [Mass/Vol] 1479.0 pg/mL Normal <=1,800.0 [facility] Comment on above: Performed By: #### E TABLISA Gr #### [facility] [address] [address] [address] Con Santana CBC AUTO DIFFon 02-14-2022 BASO # 0.1 103/ul Normal 0.0-0.1 [facility] Comment on above: Performed By: #### C BC #### [facility] [address] [place] [address] Dr. Con Santana Basophils/100 WBC (Bld) 0.9 % Normal 0.2-2.0 [facility] Comment on above: Performed By: #### C BC #### [facility] [address] [place] [address] Dr. Con Santana EO # 1.0 103/ul Critically high 0.0-0.7 [facility] Comment on above: Performed By: #### C BC #### [facility] [address] [place] [address] Dr. Con Santana Eosinophils/100 WBC (Bld) 16.2 % Critically high 0.9-7.0 [facility] Comment on above: Performed By: #### C BC #### [facility] [address] [place] [address] Dr. Con Santana Erythrocyte distribution width (RBC) [Ratio] 12.7 % Normal 11.0-15.0 [facility] Comment on above: Performed By: #### C BC #### [facility] [address] [place] [address] Dr. Con Santana Hematocrit (Bld) [Volume fraction] 39.6 % Normal 36.0-48.0 [facility] Comment on above: Performed By: #### C BC #### [facility] [address] [place] [address] Dr. Con Santana Hemoglobin (Bld) [Mass/Vol] 12.9 g/dL Normal 12.0-16.0 [facility] Comment on above: Performed By: #### C BC #### [facility] [address] [place] [address] Dr. Con Santana IG # 0.02 10e3/ul Normal 0.00-0.03 [facility] Comment on above: Performed By: #### C BC #### [facility] [address] [place] [address] Dr. Con Santana IG % 0.3 % Normal 0.0-0.5 [facility] Comment on above: Performed By: #### C BC #### [facility] [address] [place] [address] Dr. Con Santana LYMPH # 2.6 103/ul Normal 1.2-3.8 [facility] Comment on above: Performed By: #### C BC #### [facility] [address] [place] [address] Dr. Con Santana Lymphocytes/100 WBC (Bld) 40.2 % Normal 20.5-60.0 [facility] Comment on above: Performed By: #### C BC #### [facility] [address] [place] [address] Dr. Con Santana MANUAL DIFF REQ NO Normal [facility] Comment on above: Performed By: #### C BC #### [facility] [address] [place] [address] Dr. Con Santana MCH (RBC) [Entitic mass] 31.5 pg Normal 26.7-34.0 [facility] Comment on above: Performed By: #### C BC #### [facility] [address] [place] [address] Dr. Con Santana MCHC (RBC) [Mass/Vol] 32.6 g/dL Normal 29.9-35.2 [facility] Comment on above: Performed By: #### C BC #### [facility] [address] [place] [address] Dr. Con Santana MCV (RBC) [Entitic vol] 96.6 fL Normal 81.0-99.0 [facility] Comment on above: Performed By: #### C BC #### [facility] [address] [place] [address] Dr. Con Santana MONO # 0.5 103/ul Normal 0.3-0.8 [facility] Comment on above: Performed By: #### C BC #### [facility] [address] [address] [address] Con Santana Monocytes/100 WBC (Bld) 8.4 % Normal 1.7-12.0 [facility] Comment on above: Performed By: #### C BC #### [facility] [address] [address] [address] Con Santana NEUT # 2.2 103/ul Normal 1.4-6.5 [facility] Comment on above: Performed By: #### C BC #### [facility] [address] [address] [address] Con Santana Neutrophils/100 WBC (Bld) 34.0 % Critically low 43.0-75.0 [facility] Comment on above: Performed By: #### C BC #### [facility] [address] [place] [address] Dr. Con Santana Platelet mean volume (Bld) [Entitic vol] 9.8 fL Normal 9.5-13.5 [facility] Comment on above: Performed By: #### C BC #### [facility] [address] [place] [address] Dr. Con Santana PLT 270 103/ul Normal 150-450 [facility] Comment on above: Performed By: #### C BC #### [facility] [address] [place] [address] Dr. Con Santana RBC 4.10 106/ul Critically low 4.20-5.[address] [facility] Comment on above: Performed By: #### C BC #### [facility] [address] [place] [address] Dr. Con Santana WBC 6.3 103/ul Normal 4.0-11.0 [facility] Comment on above: Performed By: #### C BC #### [facility] [address] [place] [address] Dr. Con Santana Covid-19 PCR ([facility])on 01-27 SARS-CoV-2 (COVID-19) RNA JEANE+probe Ql (Unsp spec) Not detected Normal NOT DETECTED [facility] Comment on above: Result Comment: When diagnostic [...] for this test is supported by the Field Sales Executive of Health and Human Service's declaration that [...] used). Performed By: #### C BC #### [facility] [address] [place] [address] Dr. Con Santana IN[facility]EN[facility] Normal [facility] Comment on above: Result Comment: Nega tive for Flu A protein angiten. Infection due to Flu A cannot be ruled out. Flu A angiten in the sample may be below the detection limit of the test. Performed By: #### C BC #### [facility] [address] [place] [address] Dr. Con Santana INFLUBNEG SEE BELOW Normal [facility] Comment on above: Result Comment: Nega tive for Flu B protein antigen. Infection due to Flu B cannot be ruled out. Flu B antigen in the sample may be below the detection limit of the test. Performed By: #### C BC #### [facility] [address] [place] [address] Dr. Con Santana INFLUENZA A AG Negative Normal NEGATIVE SEE COMMENT [facility] Comment on above: Performed By: #### C BC #### [facility] [address] [place] [address] Dr. Con Santana INFLUENZA B AG Negative Normal NEGATIVE SEE COMMENT [facility] Comment on above: Performed By: #### C BC #### [facility] [address] [address] [address] Con Santana INTERNAL CONTROLS Within Normal Limits Normal Wi thin Normal Limits [facility] Comment on above: Performed By: #### C BC #### [facility] [address] [address] [address] Con Santana PROF 14(COMP METB)on 022 Albumin [Mass/Vol] 3.1 g/dL Critically low 3.4-5.0 [facility] Comment on above: Performed By: #### H STROPN #### [facility] [address] [address] [address] Con Santana Albumin/Globulin [Mass ratio] 1.0 {ratio} Normal [facility] Comment on above: Performed By: #### H STROPN #### [facility] [address] [place] [address] Dr. Con Santana ALP [Catalytic activity/Vol] 88 U/L Normal 46-116 [facility] Comment on above: Performed By: #### H STROPN #### [facility] [address] [address] [address] Con Santana ALT [Catalytic activity/Vol] 26 U/L Normal 14-59 [facility] Comment on above: Performed By: #### H STROPN #### [facility] [address] [place] [address] Dr. Con Santana Anion gap [Moles/Vol] 11.2 mmol/L Normal [facility] Comment on above: Performed By: #### H STROPN #### [facility] [address] [address] [address] Con Santana AST [Catalytic activity/Vol] 24 U/L Normal 15-37 [facility] Comment on above: Performed By: #### H STROPN #### [facility] [address] [address] [address] Con Santana Bilirubin [Mass/Vol] 0.6 mg/dL Normal 0.2-1.0 [facility] Comment on above: Performed By: #### H STROPN #### [facility] [address] [address] [address] Con Santana Calcium [Mass/Vol] 8.4 mg/dL Critically low 8.5-10.1 [facility] Comment on above: Performed By: #### H STROPN #### [facility] [address] [address] [address] Con Santana Chloride [Moles/Vol] 106 mmol/L Normal 98-107 [facility] Comment on above: Performed By: #### H STROPN #### [facility] [address] [address] [address] Con Santana CO2 [Moles/Vol] 27.0 mmol/L Normal 21.0-32.0 [facility] Comment on above: Performed By: #### H STROPN #### [facility] [address] [place] [address] Dr. Con Santana Creatinine [Mass/Vol] 0.71 mg/dL Normal 0.55-1.02 [facility] Comment on above: Performed By: #### H STROPN #### [facility] [address] [place] [address] Dr. Con Santana EGFR-AF CITIZEN OF [place] >60 Normal >=60 [facility] Comment on above: Performed By: #### H STROPN #### [facility] [address] [place] [address] Dr. Con Santana EGFR-NON AF CITIZEN OF [place] >60 Normal >=60 [facility] Comment on above: Performed By: #### H STROPN #### [facility] [address] [place] [address] Dr. Con Santana Globulin (S) [Mass/Vol] 3.1 g/dL Normal [facility] Comment on above: Performed By: #### H STROPN #### [facility] [address] [address] [address] Con Santana Glucose [Mass/Vol] 104 mg/dL Normal 74-106 [facility] Comment on above: Performed By: #### H STROPN #### [facility] [address] [place] [address] Dr. Con Santana Potassium [Moles/Vol] 3.2 mmol/L Critically low 3.5-5.1 [facility] Comment on above: Performed By: #### H STROPN #### [facility] [address] [address] [address] Con Santana Protein [Mass/Vol] 6.2 g/dL Critically low 6.4-8.2 [facility] Comment on above: Performed By: #### H STROPN #### [facility] [address] [address] [address] Con Santana Sodium [Moles/Vol] 141 mmol/L Normal 136-145 [facility] Comment on above: Performed By: #### H STROPN #### [facility] [address] [place] [address] Dr. Con Santana Urea nitrogen [Mass/Vol] 13.0 mg/dL Normal 7.0-18.0 [facility] Comment on above: Performed By: #### H STROPN #### [facility] [address] [place] [address] Dr. Con Santana Urea nitrogen/Creatinine [Mass ratio] 18.3 mg/mg Normal [facility] Comment on above: Performed By: #### H STROPN #### [facility] [address] [place] [address] Dr. Con Santana TROPONIN, HIGH SENSITIVITYon 02-14-2022 HSTROP 20.9 pg/mL Normal 4.0-51.3 [facility] Comment on above: Result Comment: CUT- OFF POINTS HAVE BEEN ESTABLISHED BASED ON THE FOURTH UNIVERSAL DEFINITIONS OF MYOCARDIAL INFARCTION. THE UPPER REFERENCE LIMIT (URL) OF TROPONIN, DEFINED THE 99TH PERCENTILE OF cTnI DISTRIBUTION IN A REFERENCE POPULATION, HAS BEEN CONFIRMED THE DECISION THRESHOLD FOR HI DIAGNOSIS. Performed By: #### E LISA JAVIER #### [facility] [address] [place] [address] Dr. Con Santana XR CHEST 1 Von [...] by: KAROL VARELA Date: 2022-02-14 09:36 Normal [facility] XR chest 2V*on 01-15-2019 XR chest 2V* [facility] [employer] [address] [place] [address] XRay Report Signed Patient: Salome Dominguez MR#: [id number] : 1940 Acct:[id number] Age/Sex: 78 / F ADM Date: 01/15/19 Loc: XDUCLY Room: Type: [facility] Attending Dr: Jack JAMES Ordering Provider: [...] Maximiliano Campos M.D.01/15/2019 11:38 AM Dictation Location: [facility] Transcribed By: [facility] 01/15/19 1138 Dictated By: Maximiliano Campos II, MD 01/15/19 1137 Signed By: 01/15/19 1138 [facility] XR SHOULDER RIGHT TRAUMA SER IESon 08-21-2017 XR SHOULDER RIGHT TRAUMA SERIES 08/21/2017 5:37 PMXR SHOULDER RIGHT TRAUMA SERIESINDICATION: Fall.COMPARISON: None availableFINDINGS: 2 views the right shoulder. Comminuted fracture of the humerus involving the greater tuberosity and surgical neck. Humeral head remains articulate with the glenoid.IMPRESSION: Proximal humerus fracture.Workstation ID:[id number]; right arm injury. Best images possible. Normal [facility] Vital Signs Date Time Vital Sign Value Performing Clinician Facility 10-12-2023 11:00-0500 Body height 158.75 cm Effie Jackman [facility] Other 10-12-2023 11:00-0500 Body mass index (BMI) [Ratio] 18.18 kg/m2 Effie Jackman [facility] Other 10-12-2023 11:00-0500 Body weight 45.81 kg Effie Jackman [facility] Other 10-12-2023 11:00-0500 Diastolic blood pressure 64 mm[Hg] Effie Jackman [facility] Other 10-12-2023 11:00-0500 SaO2% (BldA) [Mass fraction] 97 % Effie Jackman [facility] Other 10-12-2023 11:00-0500 Systolic blood pressure 118 mm[Hg] Effie Jackman [facility] Other Encounters Encounter Date Encounter Type Care Provider Facility Start: 05-19-2024 ambulatory [facility] Start: 04-11-2024 End: 04-11-2024 ambulatory [facility] Start: 04-05-2024 Evaluation and management of inpatient [facility] Start: 04-04-2024 Evaluation and management of inpatient [facility] Start: 04-04-2024 Evaluation and management of inpatient CAMILLE CONCEPCION [facility] Start: 04-01-2024 Emergency department patient visit FELICIA MEDINA [facility] Start: 04-01-2024 End: 04-05-2024 Evaluation and management of inpatient MIREYA TOLENTINO [facility] Start: 04-01-2024 End: 04-01-2024 ambulatory PADMINI BILLINGS [facility] Start: 03-30-2024 End: 03-30-2024 ambulatory MICHAELA RICHARDSON Not Available Start: 03-22-2024 End: 03-22-2024 ambulatory JUANA MCDANIELS Not Available Start: 03-16-2024 End: 03-17-2024 ambulatory MICHAELA RICHARDSON Not Available Start: 12-31-2023 End: 12-31-2023 ambulatory MICHAELA H RICHARDSON Not Available Start: 11-18-2023 End: 11-18-2023 ambulatory MICHAELA RICHARDSON Not Available Start: 10-27-2023 End: 10-27-2023 ambulatory Effie Jackman [facility] Other Start: 10-27-2023 Telephone encounter Effie Jackman [facility] Start: 10-16-2023 End: 10-16-2023 ambulatory Effie Jackman [facility] Other Start: 10-16-2023 Telephone encounter Effie Jackman [facility] Start: 10-15-2023 End: 10-15-2023 ambulatory Effie Jackman [facility] Other Start: 10-15-2023 Telephone encounter Effie Jackman [facility] Start: 10-12-2023 Office outpatient visit 25 minutes Effie Jackman [facility] Start: 10-12-2023 Telephone encounter Effie Jackman [facility] Start: 10-12-2023 End: 10-12-2023 ambulatory NICHOLAS Joshua [facility] Other Start: 10-01-2023 End: 10-01-2023 ambulatory MICHAELA H RICHARDSON Not Available Start: 08-05-2023 End: 08-05-2023 ambulatory Effie Jackman [facility] Other Start: 08-05-2023 Telephone encounter Effie Jackman [facility] Start: 05-14-2023 End: 05-14-2023 ambulatory Effie Jackman [facility] Other Start: 05-14-2023 Telephone encounter Effie Jackman [facility] Start: 03-30-2023 End: 03-30-2023 ambulatory Effie Jackman [facility] Other Start: 03-30-2023 Telephone encounter Effie Jackman [facility] Start: 03-27-2023 End: 03-27-2023 ambulatory Effie Jacmkan [facility] Other Start: 03-27-2023 Telephone encounter Effie Jackman [facility] Start: 12-29-2022 End: 01-01-2023 Evaluation and management of inpatient DR JANI MORENO Facility:[facility] Start: 12-22-2022 End: 12-22-2022 Evaluation and management of inpatient DR JANI MORENO Facility:[facility] Start: 07-10-2022 End: 07-11-[address] JANI MORENO Facility:[facility] Start: 02-14-2022 End: 02-14-[address] JANI MORENO Facility:[facility] Start: 01-15-2019 End: 01-15-2019 Patient encounter procedure Jack Sanches Facility:[facility] Start: 11-20-2017 End: 11-21-2017 Ambulatory DEFAULT PHYSICIAN Facility:[facility] Start: 08-21-2017 End: 08-21-2017 Emergency department patient visit JACK PINA [facility] Start: 05-07-2017 End: 05-08-2017 Ambulatory DANIELLE COFFMAN Facility:[facility] Immunizations Immunization Date Immunization Notes Care Provider Roberta webb 07-03-2023 influenza, high dose seasonal, preservative-free Effie Augustina [facility] Other Payers Date Payer Category Payer Unknown [id number] 2017 Self-pay 2014 Unknown [id number] 2003 Medicare [id number] 1959 Unknown [id number] 1940 Unknown [id number] 2.16.84 [id number] 1940 Unknown [id number] 2.16.84 [id number] 1938 Unknown [id number] 2.16.84 [id number] 1938 Unknown [id number] 2.16.84 [id number] 1938 Unknown [id number] 2.16.84 [id number] 1938 Unknown [id number] 2.16.84 [id number] 1938 Unknown [id number] 2.16.84 [id number] 1938 Unknown [id number] 2.16.84 [id number] 1938 Unknown [id number] 2.16.84 [id number] 1938 Unknown [id number] 2.16.84 [id number] 1938 Unknown [id number] 2.16.840 .[id number] Medicare [id number] Unknown Unknown [id number] 2.16.84 [id number] Social History Date Type Detail Facility Unknown if ever smoked [facility] Other Sex Assigned At Sex Assigned At Bir th [facility] Other Clinical Notes 03-27-2023 to 04-11-2024 Note [...] nurse practitioner on 04/29/2020 Padmini Billings MD, [facility] 04-05-2024 Note Adult Nutrition Asse ssment: [...] subcutaneous, Daily levothyroxine, 75 mcg, oral, Daily slvcgm-rleeblsk-qaeqfui, 1 capsule, oral, TID with meals metoprolol [...] Special Kitchen Request Once Comments: Zay 2 tur[place] islander toast, butter and syrup.turkey sausage, grits with brown sugar and butter, raspberry iraqi,orange juice and coffee, cream and sugar 04/03/24 0826 04/02/24 1302 Special Kitchen Request Once Comments: Zay send hot roast beef sandwich, mashed potatoes and gravy, Chicken noodle soup, Ramos pie,diet cola, cottage cheese 04/02/24 1303 Meal Intakes: no meals recorded Nutrition Risk: High Nutrition Needs: Needs based on: actual body weight Calorie needs: 3545-7604 kcals/day based on Equation: 25-30 kcal/kg MSJ x 1,6=6579 flori Protein needs: 41-49 g/day based on [...] Hand Grasp: Weak L 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 For weekends & holidays, the dietitian can be reached via pager [phone] from [phone]-[phone]. Unable to respond to [employer] messages on Thursday & s. [facility] 04-05-2024 Note Hospital Medicine Discharge Summary [...] placement. Patient underwent implementation of dual-chamber pacemaker, [employer] on 04/04 and did fairly well. [...] 9:40 AM Padmini Billings MD [facility] 04/29/2024 1:40 PM Sammie Miles NP [facility] Your medication list START taking [...] HYDROcodone-acetaminophen 5-325 mg tablet Commonly known as: Almo Take 1 tablet by mouth every 6 [...] Creon 3,000-9,500- 15,000 unit capsule Generic drug: tiglhf-plaplmhe-orebrkx levothyroxine 75 mcg tablet Commonly known as: Synthroid, Levoxyl Vitamin B-12 1,000 mcg tablet Generic drug: cyanocobalamin Where to Get Your Medications These medications were sent to [facility]/pharmacy #[id number] [place], [place] - [address] [facility] [address] [address] doxycycline 100 mg capsule metoprolol succinate XL 25 mg 24 hr tablet You can get these medications from any pharmacy Bring a paper prescription for each of these medications HYDROcodone-acetaminophen 5-325 mg tablet Salome is allergic to psyllium. Disposition: [place] [facility] [place] Discharge Condition: Stable Code Status: Full [...] was 60 minutes. Signed Mireya Tolentino MD [facility] 04/05/2024 12:16 PM [facility] 04-05-2024 Note Occupational Therapy Occupational Therapy [...] at home . Implantation of dual chamber PPM([employer]): submuscular implant 04/04/24 General Subjective: friendly [...] function) General Assessment General Assessment Hearing: (mild ione) Hand Dominance: Right Home Living Home Living Type of Home: Senior apartment ([facility] living) Lives With: Spouse Home Adaptive Equipment: Walker rolling, Cane (sc, gb, hhs) Home Layout: One level Home Access: Level entry Bathroom Shower/Tub: Walk-in shower Prior Level of Function Prior Function Level of [place]: Independent with ADLs and functional transfers, Independent [...] Sensation [employer] (more content not included)... [facility] 04-05-2024 Note UTP CARDIOLOGY INPAT IENT [...] subcutaneous, Daily levothyroxine, 75 mcg, oral, Daily qekyjg-pmqokahk-zngsxcd, 1 capsule, oral, TID with meals olopatadine, [...] hyperinflation. Normal cardiomediastinal (more content not included)... [facility] 04-04-2024 Note DUAL CHAMBER PACEMAK ER IMPLANT PROCEDURE NOTE DATE OF PROCEDURE: 04/04/2024 PERFORMING PHYSICIAN: Dr. Issa Richards CUSHION PADDER: MIKE CONSENT: Patient LOCATION: Emergency Medical Service Coordinator PROCEDURE PERFORMED: 1. Implantation of dual chamber PPM([employer]): submuscular implant. 2. U/S venous access [...] presented to ER per recommendation of her visual supervisor because of bradycardia. Patient's daughter reports [...] occasions using seldinger technique using a 5 Lao micropunture needle and exchanged for 0.034 wire. I decided to proceed with opening of the pocket. Localinfiltration of 1% Lidocaine was performed and an incision was created in the left upper chest. Dissection was then performed using cautery down. An active fixation [employer] pacing lead was then delivered via SPCC1 His sheath through the 9F sheath to the right ventricle. After confirmation of lead position on orthogonal views (CHIRINOS and ANDORRAN) to confirm position in the septal aspect, [...] three 0- Silk sutures. An active fixation [employer] RA pacing lead was then delivered through the 6Fsheath to the right atrial appendage. After confirmation of lead position on orthogonal views (CHIRINOS and ANDORRAN) to confirm position in the appendage, the screw was activated. After confirmation of good sensing parameters, injury pattern and pacing thresholds, 10V pacing was done and no diaphragmatic stimulation was noted. It was then secured in the pocket using three 1-0 Silk sutures. At this stage, given the good thresholds, the backup His lead was removed. The leads were then attached to a [employer] PPM device and the leads tug [...] x 2 weeks Issa Richards Cardiac Electrophysiology [facility] 04-04-2024 Note Patient: Salome Stewart Procedure Information Date/Time: 04/04/24 3649 Procedure: Implant PPM Location: [facility] / [facility] (Cath) Providers: Issa Richards MD Clinical information reviewed: Tobacco Allergies Problems Med Hx Surg Hx OB Status Fam Hx Physical Exam Airway Mallampati: II TM distance: >3 FB Neck ROM: full Cardiovascular Dental Pulmonary Abdominal Anesthesia Plan ASA 2 CSE Anesthetic plan and risks discussed with patient. Use of blood products discussed with patient who. Additional Equipment Requests [facility] 04-04-2024 Note H&P reviewed. The lelia [...] have agreed to proceed with the procedure. [facility] 04-04-2024 Note Hospital Medicine Daily Progress Note - 04/04/2024 9:43 AM; Room: [facility]313- Admission: 04/01/2024 5:28 PM; Length of stay: 3 days THE HOSPITALIST TEAM PREFERS TO USE [employer] CHAT FOR COMMUNICATION 7AM-7PM. IF I DO NOT RESPOND WITHIN 15 MINUTES, PLEASE PAGE ME/CALL THROUGH THE ATHLETIC TURF WORKER. FROM 7PM-7AM, PLEASE PAGE [phone](COVR) Code Status: Full Code Barriers to Discharge: [...] dyspnea, orthopnea, pre-syncope, syncope). EKG taken at [place] on 02/10 showed first degree AV block [...] 11:30 PM 04/04/2024 8:00 AM Site Assessment Red;Foyil Foyil VTE Prophylaxis: Lovenox Scheduled Meds ceFAZolin (Ancef) 1,000 mg, gentamicin (Garamycin) 80 mg in sodium chloride irrigation solution 0.9 % 500 mL IRRIGATION, , irrigation, Once ceFAZolin, 2 g, intravenous, Once enoxaparin, 40 mg, subcutaneous, Daily levothyroxine, 75 mcg, oral, Daily hnctes-elwtonxu-avjbsqx, 1 capsule, oral, TID with meals olopatadine, [...] mg/dL 19 CREATI (more content not included)... [facility] 04-04-2024 Note -- Attestation signed by [...] Richards MD, 30 mL at 04/04/24 1328 cmifvp-akpwjvyk-drgtppy (Creon) 3,000-9,500- 15,000 unit per capsule 1 [...] Mirian Pelaez MD PGY3 Internal Medicine [facility] 04-03-2024 Note Hospital Medicine Daily Progress Note - 04/03/2024 12:05 PM; Room: [address] [place] [address] Admission: 04/01/2024 5:28 PM; Length of stay: 2 days THE HOSPITALIST TEAM PREFERS TO USE [employer] CH[employer] FOR COMMUNICATION 7AM-7PM. IF I DO NOT RESPOND WITHIN 15 MINUTES, PLEASE PAGE ME/CALL THROUGH THE ATHLETIC TURF WORKER. FROM 7PM-7AM, PLEASE PAGE [phone](COVR) Code Status: Full Code Barriers to Discharge: [...] 11:30 PM 04/03/2024 8:00 AM Site Assessment Red;Foyil Red;Foyil VTE Prophylaxis: Lovenox Scheduled Meds enoxaparin, 40 mg, subcutaneous, Daily levothyroxine, 75 mcg, oral, Daily crxdky-ocfrolzy-qlylllm, 1 capsule, oral, TID with meals pantoprazole, [...] FREET4 0.77 04/01/2024 No results found for: [id number] , IRON , TIBC , C3 , [...] Tolentino MD Hospital Medicine 04/03/2024 12:05 PM [facility] 04-03-2024 Note -- Attestation signed by [...] QT Interval 532 QTC CALCULATION(BAZETT) 411 P [place] 82 R-[place] -60 T Wave [place] 71 Impression Sinus rhythm with complete heart [...] Cardiology will follow along Orlando Valdez MD Steam Box Operator PGY-4 [facility] 04-02-2024 Note Hospital Medicine Daily Progress Note - 04/02/2024 11:29 AM; Room: 3133/3133-01 Admission: 04/01/2024 5:28 PM; Length of stay: 1 days THE HOSPITALIST TEAM PREFERS TO USE [employer] CH[employer] FOR COMMUNICATION 7AM-7PM. IF I DO NOT RESPOND WITHIN 15 MINUTES, PLEASE PAGE ME/CALL THROUGH THE ATHLETIC TURF WORKER. FROM 7PM-7AM, PLEASE PAGE [phone](COVR) Code Status: Full Code Barriers to Discharge: [...] 11:30 PM 04/02/2024 9:00 AM Site Assessment Red;Foyil Red;Foyil VTE Prophylaxis: Lovenox Scheduled Meds [START ON [...] FREET4 0.77 04/01/2024 No results found for: [id number] , IRON , TIBC , C3 , [...] Tolentino MD Hospital Medicine 04/02/2024 11:29 AM [facility] 04-01-2024 Note Hospital Medicine History and Physical 04/01/2024 11:08 PM THE HOSPITALIST TEAM PREFERS TO USE [employer] FOR COMMUNICATION 7AM-7PM. IF I DO NOT RESPOND WITHIN 15 MINUTES, PLEASE PAGE ME/CALL THROUGH THE ATHLETIC TURF WORKER. FROM 7PM-7AM, PLEASE PAGE [phone](COVR) Chief Complaint Chief Complaint Patient presents with Bradycardia Pt sent by [place] cardiology for bradycardia. Pt c/o occasional SOB but denies being symptomatic otherwise. History of Present Illness Salome Dominguez is an 83 y.o. female who came from home with past medical history of hypothyroidism, anemia, COPD, aortic valve stenosis, asthma and dementia presented to ER per recommendation of her visual supervisor that the patient saw today because [...] Date Noted Bradycardia 04/01/2024 Complete heart block ([facility]/HCC) 04/01/2024 Murmur, heart 04/01/2024 SERRANO (dyspnea on exertion) 04/01/2024 Third degree heart block ([facility]/HCC) 04/01/2024 Dementia ([facility]) 03/15/2024 Hypothyroidism 03/15/2024 Long-term use of high-risk medication 03/15/2024 Lesion of skin of scalp 07/01/2023 Sensorineural hearing loss, bilateral 07/01/2023 Acute combined systolic and diastolic heart failure (CMS/HCC) 06/30/2023 Chronic fatigue, unspecified 06/30/2023 Diabetes mellitus ([facility]/HCC) 06/30/2023 Essential (primary) hypertension 06/30/2023 Age related osteoporosis 06/08/2023 Anxiety disorder, unspecified 06/08/2023 Asymptomatic varicose veins 06/08/2023 Ataxic gait 06/08/2023 Biliary cirrhosis ([facility]/HCC) 06/08/2023 Bladder atonia 06/08/2023 Cardiomegaly 06/08/2023 Chronic [...] Moderate episode of recurrent major depressive disorder ([facility]/HCC) 06/08/2023 Moderate persistent asthma without complication 06/08/2023 Myositis 06/08/2023 Nonrheumatic aortic valve stenosis 06/08/2023 Osteoarthritis of lumbar spine 06/08/2023 Other congenital valgus deformity of feet 06/08/2023 Other seborrheic keratosis 06/08/2023 Paroxysmal atrial fibrillation (CMS/HCC) 06/08/2023 Pure hypercholesterolemia 06/08/2023 Restless legs syndrome 06/08/2023 Transient cerebral ischemia 06/08/2023 Chronic obstructive pulmonary disease with (acute) exacerbation ([facility]) 03/12/2023 Osteoarthrosis, hand 10/15/2009 Bacterial overgrowth syndrome 05/17/2009 Abdominal pain, lef (more content not included)... [facility] 04-01-2024 Note 04/01/242033 Financial Resource Strain [...] have you lived? 1 (Lives at [facility] [place] w/ ) In the last 12 months, was there a time when you did not have a steady place to sleep or slept in a usp (including now)? N Transportation Needs In the [...] than 3 How often do you attend amish or christianity services? Never Do you belong to any clubs or organizations such as amish groups, unions, fraternal or athletic groups, or [...] has the electric, gas, oil, or water [employer] threatened to shut off services in your home? No 04/01/242034 Referral Data Referral Source workers compensation coordinator Referral Reason Psychosocial assessment Patient Information Primary Caregiver Private caregiver Accompanied by/Relationship Daughter Alexia, elke Brown Activities of Daily Living Assistive Device Walker (uses sometimes) Living Arrangement (Current/Prior to Hospitalization) Private residence ([facility] independent living w/ ) Ambulation Minimum assistance (uses walker sometimes) Dressing Independent Feeding Independent Behavior Oriented (A&Ox4) Communication Can write;Talks;Understands speaking;Understands Qatari;Reads Income Information Income Source Unemployed (Retired) Discharge Planning Support Systems Spouse/significant other;Children ( Kevin; six daughters (Alexia, Kait, Donita, Jasmin, Doris, Savana); son Karol) Type of Residence Private residence;Home care staff Will patient need Precert for Post Acute needs? No Patient's goal for discharge Return to [facility] with continued DIRECTOR PATIENT Does the patient need discharge transport arranged? No Completed social work assessment and SDoH screening. Patient was A&Ox4 at this time. Patient's , Kevin, and daughter, Alexia, were currently present at bedside. Patient reported that she lives at [facility] with her . Patient identified her support system as her (Kevin), her six daughters (Alexia, Kait, Donita, Jasmin, Doris, and Savana), and her son (Karol). Patient endorsed that she is moderately socially active. Patient reported that she needs assistance with bathing, which is provided by one of her daughters or by her DIRECTOR PATIENT who visits 2x/week. Patient reported that she [...] any alcohol consumption or recreational drug use. [facility] 04-01-2024 Note [place] [facility] Note Reason for cardiology [...] mood, affect, and judgement. Labs: 12/23/2023 at [facility] TSH 9.379., White blood count 4.6, hemoglobin [...] block, left a (more content not included)... [facility] 10-16-2023 Evaluation note Encounter Date Diagnosis Assessment Notes Sep, Hypokalemia (ICD-10 - E87.6) [employer] Other 01-18-2024 Evaluation note* Encounter Date Diagnosis Assessment Notes Treatment Notes Treatment Clinical Notes Sep, Other symptoms and signs involving appearance and behavior (ICD-10 - R46.89) [employer] Other 01-15-2024 Evaluation note* Encounter Date Diagnosis [...] Pt reinforced to take med as prescribed. [employer] Other 11-08-2023 Evaluation note* Encounter Date Diagnosis Assessment Notes Treatment Notes Treatment Clinical Notes Jul, Restless leg syndrome (ICD-10 - G25.81) [employer] Other 08-17-2023 Evaluation note* Encounter Date Diagnosis Assessment Notes Treatment Notes Treatment Clinical Notes Apr, Chronic diarrhea (ICD-10 - K52.9) [employer] Other 06-30-2023 Evaluation note* Encounter Date Diagnosis Assessment Notes Treatment Notes Treatment Clinical Notes Feb, Moderate persistent asthma without complication (ICD-10 - J45.40) [employer] Other Evaluation noteNo InformationNort [employer]oy [employer] Other History general Narrative - Reported* Type Description Date Medical History Atrial fibrillation Medical History asthma Medical History arthritia Medical History insomnia Surgical History cholecystectomy Surgical History hysterectomy Surgical History appendectomy Surgical History bowel surgery Surgical History surgery on L fourth toe 08/2016 Hospitalization History pneumonia [employer] Other History general Narrative - Reported* Type Description Date Medical History Atrial fibrillation Medical History asthma Medical History arthritia Medical History insomnia Medical History Bladder stimulator Surgical History cholecystectomy Surgical History hysterectomy Surgical History appendectomy Surgical History bowel surgery Surgical History surgery on L fourth toe 08/2016 Hospitalization History pneumonia [employer] Other Summary Purpose Family History No Family [...] Directives Records Found Reason for Referral Reason [place] [facility] - Do cuments scanned from family. CT brain pending. Behavioral and safety concerns. Notes from family scanned into chart Diagnosis 1 Other symptoms and s igns involving cognitive functions and awareness (R41.89) Referral Organization [facility] Medical sophie Referring Provider First Name Effie Referring Provider Last Name Augustina Referring Provider Specialty Family [facility] Referred Organization [facility] Referred Address [address] [place] Referred Provider Specialty Neurology Referral Priority Routine Additional Source Comments INFORMATION SOURCE (unrecogn ized section and content) DATE CREATED AUTHOR 03/19/2018 [facility] DATE CREATED AUTHOR AUTHOR'S ORGANIZ ATION 03/24/2018 [facility] DATE CREATED AUTHOR AUTHOR'S ORGANIZ ATION 04/22/2018 [facility] DATE CREATED AUTHOR AUTHOR'S ORGANIZ ATION 01/16/2019 [facility] DATE CREATED AUTHOR AUTHOR'S ORGANIZ ATION 01/03/2023 [facility] DATE CREATED AUTHOR AUTHOR'S ORGANIZ ATION 04/01/2024 [facility] DATE CREATED AUTHOR AUTHOR'S ORGANIZ ATION 04/12/2024 [facility] DATE CREATED AUTHOR AUTHOR'S ORGANIZ ATION 06/01/2024 [facility] REASON FOR [...] BE BASED ON THE PRIMARY CLINICAL RECORDS. [facility]. provides no warranty or guarantee of the accuracy or completeness of information in this document.
--- NOTE | 2024-06-26 22:20 | ECG_ITS ---
[facility] Test Date: 2024-06-26 Pat Name: CECELIA VILLALPANDO Department: Room: 2191 Gender: Female Sports Physical Therapist: : 1940 Requested By: 1031 Order Number: [id number] Reading MD: TERRY SERRATO Measurements Intervals [place] Rate: 90 P: 68 WV: 156 QRS: 78 QRSD: 150 T: 64 QT: 420 QTc: 468 Interpretive Statements Paced rhythm 9150 abnormal ECG Electronically Signed On 06-27-2024 6:53:00 EDT by TERRY SERRATO
--- NOTE | 2024-06-26 22:23 | ED.SOB1 ---
HPI - SOB/Dyspnea General Chief Complaint: Shortness of Breath/Dyspnea Stated Complaint: Shortness of Breath Time Seen by Provider: 06/26/24 22:14 Source: patient Mode of arrival: Wheelchair Limitations: no limitations History of Present Illness HPI Narrative: patient states she is short of breath. Denies history of smoking cigarettes. She is a poor historian. no fever , abdominal pain or chest pain. no nausea Related Data Home Medications ?Medication ?Instructions ?Recorded ?Confirmed albuterol sulfate 90 mcg/actuation 2 puff inhalation DAILY 02/11/24 06/26/24 aerosol inhaler levothyroxine 75 mcg tablet 75 mcg PO DAILY 02/11/24 06/26/24 metoprolol succinate 25 mg 12.5 mg PO DAILY 05/11/24 06/26/24 tablet,extended release 24 hr Previous Rx's ?Medication ?Instructions ?Recorded albuterol sulfate 2.5 mg/3 mL 2.5 mg (3 mL) inhalation Q6H PRN 05/26/24 (0.083 %) solution for nebulization shortness of breath or wheezing #180 mL albuterol sulfate 2.5 mg/3 mL 2.5 mg (3 mL) inhalation Q6H PRN 05/26/24 (0.083 %) solution for nebulization shortness of breath or wheezing #90 mL nebulizers (Aeroneb Go Nebulizer) #1 ea 05/26/24 Allergies Allergy/AdvReac Type Severity Reaction Status Date / Time psyllium [From Metamucil] Allergy Severe Hives Verified 06/26/24 21:56 Review of Systems ROS Status of ROS 10 or more systems reviewed and unremarkable except as noted in history and below [facility] Medical History (Updated 06/27/24 @ 01:38 by Foreign Flores MD) Chronic diastolic (congestive) heart failure ?I50.32 - Chronic diastolic (congestive) heart failure (ICD-10) Primary hypertension ?I10 - Essential (primary) hypertension (ICD-10) Hypothyroidism (acquired) ?E03.9 - Hypothyroidism, unspecified (ICD-10) Abnormal CT scan, gastrointestinal tract ?R93.3 - Abnormal findings on diagnostic imaging of other parts of digestive tract (ICD-10) Ileus ?K56.7 - Ileus, unspecified (ICD-10) Abnormal CT of the abdomen ?R93.5 - Abnormal findings on diagnostic imaging of other abdominal regions, including retroperitoneum (ICD-10) Adult failure to thrive ?R62.7 - Adult failure to thrive (ICD-10) COPD (chronic obstructive pulmonary disease) ?J44.9 - Chronic obstructive pulmonary disease, unspecified (ICD-10) Shortness of breath ?R06.02 - Shortness of breath (ICD-10) Pacemaker ?Z95.0 - Presence of cardiac pacemaker (ICD-10) Asthma ?J45.909 - Unspecified asthma, uncomplicated (ICD-10) Surgical History History of cholecystectomy ?Z90.49 - Acquired absence of other specified parts of digestive tract (ICD-10) History of hysterectomy ?Z90.710 - Acquired absence of both cervix and uterus (ICD-10) History of appendectomy ?Z90.49 - Acquired absence of other specified parts of digestive tract (ICD-10) Family History Brother Family history of COPD (chronic obstructive pulmonary disease) Social History Within the past year, how often did you have a drink containing alcohol: monthly or less Within the past year, how many standard drinks containing alcohol did you have on a typical day: 1 or 2 Within the past year, how often did you have six or more drinks on one occasion: never Total score: 0 Score interpretation: A score less than 3 is consistent with normal alcohol consumption. Smoking status: Never smoker Non-prescribed substance use: denies use Previous occupational history: retired Highest level of school completed/degree received: Associate degree: occupational, technical, vocational program Are you now , , , , never or living with a partner: Little interest or pleasure in doing things: not at all Feeling down, depressed, or hopeless: not at all Feel stressed/tense/nervous/anxious/difficulty sleeping: not at all Do you think of yourself as: straight/heterosexual Gender Identity: female Exam Constitutional Vital Signs, click to edit/add: Last Vital Signs Temp 97.7 F 06/26/24 21:56 Pulse 77 06/27/24 01:00 Resp 21 H 06/27/24 01:00 BP 99/59 06/27/24 00:38 Pulse Ox 98 06/26/24 23:30 O2 Del Method Room Air 06/26/24 21:56 Common normals: no apparent distress and average body habitus HENMT Common normals: normocephalic and head/scalp atraumatic Eye Common normals: EOMs intact bilaterally and conjunctivae normal Respiratory Common normals: normal respiratory effort and no use of accessory muscles Other: bibasilar fibrotic crackles Cardio Common normals: regular rate, regular rhythm, S1 normal heart sound and S2 normal heart sound GI Common normals: Normal to inspection, nondistended, normoactive bowel sounds present, soft to palpation and non-tender Extremity Common normals: normal to inspection and full ROM Neuro Common normals: CN's II-XII intact bilaterally, moves all extremities and no focal motor deficits Psych Appearance: grossly normal Course Vital Signs Vital signs: Vital Signs Temperature 97.7 F 06/26/24 21:56 Pulse Rate 90 06/26/24 21:56 Respiratory Rate 20 06/26/24 21:56 Blood Pressure 128/80 06/26/24 21:56 Pulse Oximetry 97 06/26/24 21:56 Oxygen Delivery Method Room Air 06/26/24 21:56 Temperature 97.7 F 06/26/24 21:56 Pulse Rate 77 06/27/24 01:00 Respiratory Rate 21 H 06/27/24 01:00 Blood Pressure 99/59 06/27/24 00:38 Pulse Oximetry 98 06/26/24 23:30 Oxygen Delivery Method Room Air 06/26/24 21:56 MDM - SOB/Dyspnea MDM Narrative Medical decision making narrative: patient has history of COPD. poor historian. Presents complaining of shortness of breath but is in no distress. RA pulse ox 98% and normal respiratory effort. exam with bibasilar fibrotic crackles. cxray with emphysematous changes but no acute change. BNP elevated . Troponin neg. sodium 123. Was 139 last month. Not clear why she is hyponatremic. Discussed with the hospitalist and will plan obs admission and have labs rechecked tomorrow Lab Data Labs: Lab Results 06/26/24 06/27/24 Range/Units 22:40 00:58 WBC 4.6 (4.0-11.0) 10^3/uL RBC 3.39 L (4.20-5.40) 10^6/uL Hgb 10.3 L (12.0-16.0) g/dL Hct 31.0 L (36.0-48.0) % MCV 91.4 (81.0-99.0) fL MCH 30.4 (26.7-34.0) pg MCHC 33.2 (29.9-35.2) g/dL RDW 13.2 (11.0-15.0) % Plt Count 196 (150-450) 10^3/uL MPV 9.7 (9.5-13.5) fL Neut % (Auto) 30.9 L (43.0-75.0) % Lymph % (Auto) 42.3 (20.5-60.0) % [place] % (Auto) 15.4 H (1.7-12.0) % Eos % (Auto) 10.1 H (0.9-7.0) % Baso % (Auto) 1.1 (0.2-2.0) % Neut # (Auto) 1.4 (1.4-6.5) 10^3/uL Lymph # (Auto) 1.9 (1.2-3.8) 10^3/uL [place] # (Auto) 0.7 (0.3-0.8) 10^3/uL Eos # (Auto) 0.5 (0.0-0.7) 10^3/uL Baso # (Auto) 0.1 (0.0-0.1) 10^3/uL Abs Immat Gran (auto) 0.01 (0.00-0.03) 10^3/uL Imm/Tot Granulo (auto) 0.2 (0.0-0.5) % Sodium 123 L* (136-145) mmol/L Potassium 3.7 (3.5-5.1) mmol/L Chloride 92 L (98-107) mmol/L Carbon Dioxide 25.5 (21.0-32.0) mmol/L Anion Gap 9.2 BUN 7.0 (7.0-18.0) mg/dL Creatinine 0.66 (0.55-1.02) mg/dL Est GFR ( Amer) >60 (>=60) Est GFR (Non-Af Amer) >60 (>=60) BUN/Creatinine Ratio 10.6 Glucose 90 (74-106) mg/dL Calcium 8.1 L (8.5-10.1) mg/dL Troponin I High Sens 11.2 10.1 (4.0-51.3) pg/mL NT-Pro-B Natriuret Pep 4527.0 H* (<=1800.0) pg/mL Imaging Data Chest x-ray: Radiologist's impression: ITS Impressions Chest X-Ray 06/26/24 22:28 Impression: No acute cardiopulmonary process. Electronically authenticated by: JEFRY ABDI Date: 06/26/2024 23:52 Discharge Plan Discharge Chief Complaint: Shortness of Breath/Dyspnea Clinical Impression: Acute hyponatremia Patient Disposition: Admitted as Observation
--- NOTE | 2024-06-26 22:28 | XR_ITS ---
The [address] [address] Patient Name: CECELIA VILLALPANDO MRN: [id number] date: 1940 Sex: F Assigned Patient Location: ER Current Patient Location: ER Accession/Order Number: [id number] Exam Date: 06/26/2024 22:42 Report Date: 06/26/2024 23:52 At the request of: NATHALIE STANFORD Procedure: XR chest 1V XR chest 1V 06/26/2024 9:42 PM CDT: History: short of breath Comparison: 05/26/2024 Technique: 1 view chest Findings: The cardiomediastinal silhouette is normal. The left subclavian pacemaker is unchanged. The lungs are clear without infiltrate, effusion, or pneumothorax. The bones are intact. XR/XR chest 1V Impression: No acute cardiopulmonary process. Electronically authenticated by: JEFRY ABDI Date: 06/26/2024 23:52
[2024-06-26 22:51] LABS: Basophils Absolute Auto 0.1 10^3/uL (0.0-0.1); Basophils Percent Auto 1.1 % (0.2-2.0); Eosinophils Absolute Auto 0.5 10^3/uL (0.0-0.7); Eosinophils Percent Auto 10.1 % (0.9-7.0); Hemoglobin 10.3 g/dL (12.0-16.0); Immature Granulocytes Abs Auto 0.01 10^3/uL (0.00-0.03); Immature Granulocytes Pct Auto 0.2 % (0.0-0.5); Lymphocytes Absolute Auto 1.9 10^3/uL (1.2-3.8); Lymphocytes Percent Auto 42.3 % (20.5-60.0); Mean Corpuscular HGB Conc 33.2 g/dL (29.9-35.2); Mean Corpuscular Hemoglobin 30.4 pg (26.7-34.0); Mean Corpuscular Volume 91.4 fL (81.0-99.0); Mean Platelet Volume 9.7 fL (9.5-13.5); Monocytes Absolute Auto 0.7 10^3/uL (0.3-0.8); Monocytes Percent Auto 15.4 % (1.7-12.0); Neutrophils Absolute Auto 1.4 10^3/uL (1.4-6.5); Neutrophils Percent Auto 30.9 % (43.0-75.0); Platelet Count 196 10^3/uL (150-450); Red Blood Count 3.39 10^6/uL (4.20-5.40); Red Cell Distribution Width 13.2 % (11.0-15.0); White Blood Count 4.6 10^3/uL (4.0-11.0)
[2024-06-26 23:09] LABS: Anion Gap 9.2; BUN Creatinine Ratio 10.6; Calcium 8.1 mg/dL (8.5-10.1); Carbon Dioxide 25.5 mmol/L (21.0-32.0); Chloride 92 mmol/L (98-107); Estimated GFR (African America >60 (>=60); Estimated GFR (Non-African Ame >60 (>=60); Glucose 90 mg/dL (74-106); Potassium 3.7 mmol/L (3.5-5.1); Troponin I High Sensitivity 11.2 pg/mL (4.0-51.3)
[2024-06-26 23:17] LABS: Sodium 123 mmol/L (136-145)
[2024-06-27] VITALS (25 sets, daily range): BP systolic 97–133; BP diastolic 49–78; PULSE 74–94; TEMP 36.3–36.7; O2SAT 93–98; BMI 16.2
[2024-06-27 01:27] LABS: Troponin I High Sensitivity 10.1 pg/mL (4.0-51.3)
--- OUTSIDE RECORDS SUMMARY | 2024-06-27 02:02 | XMS_ITS | CCD ---
Author Organization [facility] Care Team Providers Care Restaurant Kitchen Manager Name Role Phone PHYSICIAN, DEFAULT Unavailable Unavailable PHYSICIAN, DEFAULT Unavailable Unavailable DANIELLE COFFMAN Unavailable Unavailable JACK PINA Unavailable Unavailable NONSTAFF, [facility] Unavailable Unavailable Jack Sanches [employer] Admitting UnavailJack Pandey [employer] Attending UnavailJani Paul Primary Care Unavailable JOSH, [...] Referring Unavailable FELICIA MEDINA Referring Unavailable ISSA RCIHARDS Referring Unavailable ISSA RICHARDS Referring Unavailable CAMILLE CONCEPCION Referring Unavailajay e PADMINI BILLINGS Attending Unavailable Allergies Allergy Classification Reported Allergen(s) Allergy Type Date of Onset Reaction(s) Facility (2 sources) levoFLOXacin; Translations: [LEVOFLOXACIN] Drug Allergy 08-07-2017 [facility] Repository (3 sources) psyllium; Translations: [PSYLLIUM] Drug Allergy 02-22-2009 [facility] Repository (11 sources) levoFLOXacin Drug Allergy 02-05-2016 hives [facility] Repository (1 source) Penicillin Drug Allergy [facility] Repository (11 sources) Psyllium Drug Allergy 03-03-2013 anaphylaxis [facility] Repository Medications Current Medications Medication Drug Class(es) Dates Sig (Normalized) Sig (Original) Acetaminophen (10 sources) Acetaminophen Active Albuterol (10 sources) beta2-Adrenergic Agonist Albuterol Sulfate HFA Active amylase 47896 unt / lipase 3000 unt / protease 9500 unt delayed release oral capsule (10 sources) take 4051-9600 [IU] by mouth three times daily at mealtime Creon 8031-4963 UNIT as directed Orally tid w meals [...] 3 Chronic Other aftercare (1 source) Other intermediate frame tender (current) drug therapy; 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] Onset: 3 Episodic Other [...] Onset: 7 Unclassified (1 source) Fall / 81301() Onset: 7 Unclassified (1 source) Arm Injury / 30500() Onset: 7 Unclassified (1 source) R06.02 - [...] Range Facility Office Visiton 04-11-2024 Follow-up visit [id number] Asia Dominguez 1940 F Date Provider Department Center 04/11/2024 [id number]-HMLYUAPADMINI PATEL [facility] Family History Problem Relation Age of Onset Stroke Mother Other Mother No Known Problems Father Family Status - Relation Status Age at Mother Father Level of Service:49916 [place] POSTOP FOLLOW UP VISIT RELATED TO ORIGINAL PX Normal [facility] HEMOGLOBIN AND HEMATOCRIT, B LOODon 04-05-2024 Hematocrit (Bld) [Volume fraction] 29.6 % Low 36.0-48.0 [facility] Comment on above: Performed By: #### L [id number] #### [facility] (BEAKER) [address] [place] [address] Hemoglobin (Bld) [Mass/Vol] 9.8 g/dL Low 12.0-15.0 [facility] Comment on above: Performed By: #### L [id number] #### [facility] (BEAKER) [address] [place] [address] 30on 04-04-2024 30 The patient is Moderately [...] goals for the shift include stable vitals [facility] 30 Daily Case Managemen t Update Multidisciplinary rounds have been completed. Barriers to Discharge: Pending Clinical Course. Admitted with Third degree heart block-Planning PPM implantation today. Planning to Return [place] [facility] living with on discharge. Diet: Dietary Orders (From admission, onward) Start Ordered 04/04/24 0001 Diet NPO Diet effective midnight Comments: Sips with medications Question: Reason for NPO: Answer: Operation/Procedure 04/03/24 0744 04/03/24 1233 Special Kitchen Request Once Comments: Grilled cheese on wheat, vanilla ice, fruit cup, 2 diet coke 04/03/24 1235 04/03/24 0824 Special Kitchen Request Once Comments: Plz 2 jordanian toast, butter and syrup.turkey sausage, grits with brown sugar and butter, raspberry malagasy,orange juice and coffee, cream and sugar 04/03/24 0826 04/02/24 1302 Special Kitchen Request Once Comments: Plz send hot roast beef sandwich, mashed potatoes and gravy, Chicken noodle soup, Ramos pie,diet cola, cottage cheese 04/02/24 1303 Physician Expected Discharge Date: 04/05/2024 Discharge Delays: PT Six Click Score: 23 OT Six Click Score: PT Recommendations: OT Recommendations: New Consults: [facility] 30 The patient is Moderately Stable - Low risk of patient condition declining or worsening The patient's goals for the shift include comfort The clinical goals for the shift include Vss, safety Over the shift, the patient did not make progress toward the following goals. Barriers to progression include na. Recommendations to address these barriers include na. [facility] 30on 04-03-2024 30 The patient is Moderately Stable - Low risk of patient condition declining or worsening The patient's goals for the shift include comfort and rest The clinical goals for the shift include stable VS Over the shift, the patient did not make progress toward the following goals. Barriers to progression include na. Recommendations to address these barriers include na. [facility] 30 The patient is Moderately Stable - Low risk of patient condition declining or worsening The patient's goals for the shift include comfort and rest The clinical goals for the shift include stable VS Over the shift, the patient continues to make progress toward the following goals. [facility] 30on 04-02-2024 30 The patient is Moderately Stable - Low risk of patient condition declining or worsening The patient's goals for the shift include The clinical goals for the shift include vss Over the shift, the patient did not make progress toward the following goals. Barriers to progression include na. Recommendations to address these barriers include na. [facility] 30 The patient is Moderately Stable - Low risk of patient condition declining or worsening The patient's goals for the shift include The clinical goals for the shift include vss Over the shift, the patient continues to make progress toward the following goal. [facility] CONSULTon 04-02-2024 CONSULT --- Attestation [...] QT Interval 532 QTC CALCULATION(BAZETT) 411 P Garryowen 82 R-Garryowen -60 T Wave Garry[place] 71 Impression Sinus rhythm with complete heart [...] ECG 12 (more content not included)... Normal [facility] APTTon 04-01-2024 ACTIVATED PARTIAL THROMBOPLASTIN TIME IN PPP BY COAGULATION ASSAY 33.9 Seconds Normal 25.0-35.0 [facility] Comment on above: Result Comment: Clin ical significance of the APTT is questionable in the presence of heparin. Performed By: #### L [id number] ####[facility] ([facility])[address] [place] [address] B-TYPE NATRIURETIC PEPTIDEon 04-01-2024 Natriuretic peptide B (Bld) [Mass/Vol] 566 pg/mL High 0-100 [facility] Comment on above: Performed By: #### L [id number] #### [facility] ([facility]) [address] [place] [address] BASIC METABOLIC PANELon - Anion gap [Moles/Vol] 9 mmol/L Normal 7-20 [facility] Comment on above: Performed By: #### L [id number] ####[facility] ([facility])[address] [place] [address] Calcium [Mass/Vol] 8.0 mg/dL Low 8.6-10.3 [facility] Comment on above: Performed By: #### L [id number] ####[facility] (BEAKER)[address] [place] [address] Chloride [Moles/Vol] 112 mmol/L High 98-107 [facility] Comment on above: Performed By: #### L [id number] ####[facility] (BEAKER)[address] [place] [address] CO2 [Moles/Vol] 18 mmol/L Low 21-31 [facility] Comment on above: Performed By: #### L [id number] ####[facility] [place] [address] Creatinine [Mass/Vol] 0.83 mg/dL Normal 0.60-1.20 [facility] Comment on above: Performed By: #### L [id number] ####[facility] [place] [address] GLOMERULAR FILTRATION RATE ML/MIN/1.73 SQ M.PREDICTED 69.0 mL/min/1.73m*2 Normal >60.0 [facility] Comment on above: Result Comment: [facility]???s estimated glomerular filtration rate (eGFR) will [...] of individuals. Performed By: #### L [id number] ####[facility] ([facility] [place] [address] Glucose [Mass/Vol] 91 mg/dL Normal 70-100 [facility] Comment on above: Performed By: #### L [id number] ####[facility] (BEAKER)[address] [place] [address] Potassium [Moles/Vol] 4.3 mmol/L Normal 3.5-5.1 [facility] Comment on above: Performed By: #### L [id number] ####[facility] (BEAKER)[address] [place] [address] Sodium [Moles/Vol] 135 mmol/L Low 136-145 [facility] Comment on above: Performed By: #### L [id number] ####[facility] [place] [address] Urea nitrogen [Mass/Vol] 19 mg/dL Normal 7-25 [facility] Comment on above: Performed By: #### L [id number] ####[facility] ([facility])[address] [place] [address] UREA NITROGEN/CREATININE (MASS RATIO) IN SER/PLAS 22.9 Normal [facility] Comment on above: Performed By: #### L [id number] ####[facility] ([facility])[address] [place] [address] CBC WITH AUTO DIFFERENTIALon 04-01-2024 Basophils (Bld) [#/Vol] 0.04 10*3/uL Normal 0.00-0.20 [facility] Comment on above: Performed By: #### L [id number] #### [facility] ([facility]) [address] [place] [address] Basophils/100 WBC (Bld) 1.0 % Normal 0.0-1.0 [facility] Comment on above: Performed By: #### L [id number] #### [facility] (BEAKER) [address] [place] [address] Eosinophils (Bld) [#/Vol] 0.56 10*3/uL High 0.00-0.50 [facility] Comment on above: Performed By: #### L [id number] #### [facility] [address] [place] [address] Eosinophils/100 WBC (Bld) 13.9 % High 0.0-6.0 [facility] Comment on above: Performed By: #### L [id number] #### [facility] (BEAKER) [address] [place] [address] Erythrocyte distribution width (RBC) [Ratio] 14.2 % Normal 11.5-15.0 [facility] Comment on above: Performed By: #### L [id number] #### [facility] ([facility]) [address] [place] [address] ERYTHROCYTE MEAN CORPUSCULAR HEMOGLOBIN CONCENTRATION (G/DL) BY AUTOMATED 31.3 g/dL Low 32.0-35.0 [facility] Comment on above: Performed By: #### L [id number] #### [facility] ([facility]) [address] [place] [address] Hematocrit (Bld) [Volume fraction] 31.3 % Low 36.0-48.0 [facility] Comment on above: Performed By: #### L [id number] #### [facility] ([facility]) [address] [place] [address] Hemoglobin (Bld) [Mass/Vol] 9.8 g/dL Low 12.0-15.0 [facility] Comment on above: Performed By: #### L [id number] #### [facility] ([facility]) [address] [place] [address] Immature granulocytes (Bld) [#/Vol] 0.00 10*3/uL Normal 0.00-0.20 [facility] Comment on above: Performed By: #### L [id number] #### [facility] [address] [place] [address] Immature granulocytes/100 WBC (Bld) 0.0 % Normal 0.0-1.0 [facility] Comment on above: Performed By: #### L [id number] #### [facility] ([facility]) [address] [place] [address] Lymphocytes (Bld) [#/Vol] 1.85 10*3/uL Normal 1.20-4.00 [facility] Comment on above: Performed By: #### L [id number] #### [facility] [address] [place] [address] Lymphocytes/100 WBC (Bld) 45.9 % High 20.0-45.0 [facility] Comment on above: Performed By: #### L [id number] #### [facility] [address] [place] [address] MCH (RBC) [Entitic mass] 30.9 pg Normal 27.0-33.0 [facility] Comment on above: Performed By: #### L [id number] #### [facility] [address] [place] [address] MCV (RBC) [Entitic vol] 98.7 fL High 82.0-98.0 [facility] Comment on above: Performed By: #### L [id number] #### [facility] ([facility]) [address] [place] [address] Monocytes (Bld) [#/Vol] 0.45 10*3/uL Normal 0.10-1.00 [facility] Comment on above: Performed By: #### L [id number] #### [facility] [address] [place] [address] Monocytes/100 WBC (Bld) 11.2 % Normal 5.0-12.0 [facility] Comment on above: Performed By: #### L [id number] #### [facility] [address] [place] [address] Neutrophils (Bld) [#/Vol] 1.13 10*3/uL Low 1.60-7.60 [facility] Comment on above: Performed By: #### L [id number] #### [facility] [address] [place] [address] Neutrophils/100 WBC (Bld) 28.0 % Low 40.0-72.0 [facility] Comment on above: Performed By: #### L [id number] #### [facility] [address] [place] [place] [address] NRBC (PER 100 WBCS) BY AUTOMATED COUNT 0.0 % Normal 0 [facility] Comment on above: Performed By: #### L [id number] #### [facility] ([facility]) [address] [place] [address] PLATELETS (10*3/UL) IN BLOOD AUTOMATED COUNT 177 10*3/uL Normal 150-400 [facility] Comment on above: Performed By: #### L [id number] #### [facility] ([facility]) [address] [place] [address] RBC (Bld) [#/Vol] 3.17 10*6/uL Low 3.80-5.00 [facility] Comment on above: Performed By: #### L [id number] #### [facility] ([facility]) [address] [place] [address] WBC (Bld) [#/Vol] 4.03 10*3/uL Normal 4.00-10.60 [facility] Comment on above: Performed By: #### L [id number] #### [facility] ([facility]) [address] [place] [address] EDPROVon 04-01-2024 EDPROV --- Attestation signed by Felicia Medina DO at 04/02/2024 3:16 PM 2022 Emergency Medicine Coding Guide from [employer] on 04/02/2024 All calculations should be rechecked [...] Patient presents with Bradycardia Pt sent by [facility] for bradycardia. Pt c/o occasional SOB but denies being symptomatic otherwise. HPI 83-year-old female with history of Alzheimer disease, asthma, A-fib, COPD, and hypothyroidism presenting due to concerns of third-degree heart block. Patient evaluated at client services assistant office today after patient was found to be bradycardic at neurologist office. Per cardiology patient was in third-degree heart block and sent to be evaluated for possible pacemaker placement. Patient states that she feels tired all the time but denies any other symptoms with it. Ricardo Coma Scale Score: 15 Patient History Past Medical History: Diagnosis Date Abnormal ECG Alzheimer disease ([facility]) Asthma Atrial fibrillation ([facility]) Bradycardia COPD (chronic obstructive pulmonary disease) ([facility]) Dementia ([facility]) Hypothyroidism RLS (restless legs syndrome) [...] 1843 Rate: 36 Rhythm: 3rd degree block Garryowen: LAD QRS: 142 GA: n/a Qtc: 411 Other findings: TWI in V3 [TS] ED Course User Index [TS] Felicia Medina DO Diagnoses as of 04/01/242002 Third degree heart block (CMS/HCC) Medical Decision Making Reviewed patie (more content not included)... Normal [facility] Office Visiton 04-01-2024 Follow-up visit [id number] Asia Dominguez 1940 F Date Provider Department Center 04/01/2024 [id number]-NOVJCTPADMINI BILLINGS [facility] Family History Problem Relation Age of Onset Stroke Mother Other Mother No Known Problems Father Family Status - Relation Status Age at Mother Father Level of Service:00510 [place] OFFICE/OUTPATIENT NEW MODERATE MDM 45 MINUTES Normal [facility] PROTIME-INRon 04-01-2024 INR IN PPP BY COAGULATION ASSAY 1.18 High 0.90-1.10 [facility] Comment on above: Result Comment: ACCC [...] 1995;108:231S-246S. Performed By: #### L [id number] #### [facility] [employer] [address] [place] [address] PROTHROMBIN TIME (PT) IN PPP BY COAGULATION ASSAY 15.0 Seconds High 12.3-14.8 [facility] Comment on above: Performed By: #### L [id number] #### [facility] [employer] [address] [place] [address] T4, FREEon 04-01-2024 THYROXINE (T4) FREE (NG/DL) IN SER/PLAS 0.77 ng/dL Normal 0.71-1.85 [facility] Comment on above: Performed By: #### L [id number] ####[facility] [employer])[address] [place] [address] TROPONIN Ion 04-01-2024 Troponin I.cardiac [Mass/Vol] 0.04 ng/mL Normal 0.00-0.04 [facility] Comment on above: Performed By: #### L [id number] #### [facility] ([facility]) [address] [place] [address] TSH3 REFLEX TO FT4on 024 THYROTROPIN (MIU/L) IN SER/PLAS BY DETECTION LIMIT <= 0.05 MIU/L 6.13 mIU/L High 0.34-5.60 [facility] Comment on above: Performed By: #### L [id number] #### [facility] ([facility]) [address] [place] [address] CULTURE URINEon 01-02-2023 CULTURE URINE Isolate 1 [...] F Nitrofurantoin <=16 S F Normal [facility] Comment on above: Performed By: #### C BC #### [facility] [address] [place] [address] Dr. Con Santana BNPon 01-01-2023 Natriuretic peptide B (Bld) [Mass/Vol] 6147.0 pg/mL Critically high <=1,800.0 [facility] Comment on above: Performed By: #### H STROPN #### [facility] [address] [place] [address] Dr. Con Santana CBC AUTO DIFFon 01-01-2023 BASO # 0.0 103/ul Normal 0.0-0.1 [facility] Comment on above: Performed By: #### C BC #### [facility] [address] [place] [address] [address] Con Santana Basophils/100 WBC (Bld) 0.2 % Normal 0.2-2.0 [facility] Comment on above: Performed By: #### C BC #### [facility] [address] [place] [address] Dr. Con Santana EO # 0.0 103/ul Normal 0.0-0.7 [facility] Comment on above: Performed By: #### C BC #### [facility] [address] [place] [address] Dr. Con Santana Eosinophils/100 WBC (Bld) 0.0 % Critically low 0.9-7.0 [facility] Comment on above: Performed By: #### C BC #### [facility] [address] [place] [address] Dr. Con Santana Erythrocyte distribution width (RBC) [Ratio] 14.4 % Normal 11.0-15.0 [facility] Comment on above: Performed By: #### C BC #### [facility] [address] [place] [address] Dr. Con Santana Hematocrit (Bld) [Volume fraction] 28.5 % Critically low 36.0-48.0 [facility] Comment on above: Performed By: #### C BC #### [facility] [address] [place] [address] Dr. Con Santana Hemoglobin (Bld) [Mass/Vol] 9.1 g/dL Critically low 12.0-16.0 [facility] Comment on above: Performed By: #### C BC #### [facility] [address] [place] [address] Dr. Con Santana IG # 0.14 10e3/ul Critically high 0.00-0.03 [facility] Comment on above: Performed By: #### C BC #### [facility] [address] [place] [address] Dr. Con Santana IG % 1.1 % Critically high 0.0-0.5 [facility] Comment on above: Performed By: #### C BC #### [facility] [address] [address] [address] Con Santana LYMPH # 0.9 103/ul Critically low 1.2-3.8 [facility] Comment on above: Performed By: #### C BC #### [facility] [address] [place] [address] Dr. Cno Santana Lymphocytes/100 WBC (Bld) 7.3 % Critically low 20.5-60.0 [facility] Comment on above: Performed By: #### C BC #### [facility] [address] [address] [address] Con Santana MANUAL DIFF REQ NO Normal [facility] Comment on above: Performed By: #### C BC #### [facility] [address] [place] [address] Dr. Con Santana MCH (RBC) [Entitic mass] 31.1 pg Normal 26.7-34.0 [facility] Comment on above: Performed By: #### C BC #### [facility] [address] [place] [address] Dr. Con Santana MCHC (RBC) [Mass/Vol] 31.9 g/dL Normal 29.9-35.2 [facility] Comment on above: Performed By: #### C BC #### [facility] [address] [place] [address] Dr. Con Santana MCV (RBC) [Entitic vol] 97.3 fL Normal 81.0-99.0 [facility] Comment on above: Performed By: #### C BC #### [facility] [address] [place] [address] Dr. Con Santana MONO # 1.3 103/ul Critically high 0.3-0.8 [facility] Comment on above: Performed By: #### C BC #### [facility] [address] [place] [address] Dr. Con Santana Monocytes/100 WBC (Bld) 10.0 % Normal 1.7-12.0 [facility] Comment on above: Performed By: #### C BC #### [facility] [address] [address] [address] Con Santana NEUT # 10.5 103/ul Critically high 1.4-6.5 [facility] Comment on above: Performed By: #### C BC #### [facility] [address] [place] [address] Dr. Con Santana Neutrophils/100 WBC (Bld) 81.4 % Critically high 43.0-75.0 [facility] Comment on above: Performed By: #### C BC #### [facility] [address] [place] [address] Dr. Con Santana Platelet mean volume (Bld) [Entitic vol] 10.5 fL Normal 9.5-13.5 [facility] Comment on above: Performed By: #### C BC #### [facility] [address] [place] [address] Dr. Con Santana PLT 179 103/ul Normal 150-450 [facility] Comment on above: Performed By: #### C BC #### [facility] [address] [place] [address] Dr. Con Santana RBC 2.93 106/ul Critically low 4.20-5.40 [facility] Comment on above: Performed By: #### C BC #### [facility] [address] [place] [address] Dr. Con Santana WBC 12.8 103/ul Critically high 4.0-11.0 [facility] Comment on above: Performed By: #### C BC #### [facility] [address] [place] [address] Dr. Con Santana POINT OF CARE GLUCOSEon Glucose [Mass/Vol] 97 mg/dL Normal 74-106 [facility] Comment on above: Performed By: #### C BC #### [facility] [address] [place] [address] Dr. Con Santana PROF CHEM 8 (BAS METB)on Anion gap [Moles/Vol] 14.3 mmol/L Normal [facility] Comment on above: Performed By: #### H STROPN #### [facility] [address] [address] [address] Con Santana Calcium [Mass/Vol] 7.2 mg/dL Critically low 8.5-10.[address] [facility] Comment on above: Performed By: #### H STROPN #### [facility] [address] [address] [address] Con Santana Chloride [Moles/Vol] 108 mmol/L Critically high 98-107 [facility] Comment on above: Performed By: #### H STROPN #### [facility] [address] [address] [address] Con Santana CO2 [Moles/Vol] 22.6 mmol/L Normal 21.0-32.0 [facility] Comment on above: Performed By: #### H STROPN #### [facility] [address] [address] [address] Con Santana Creatinine [Mass/Vol] 1.08 mg/dL Critically high 0.55-1.02 [facility] Comment on above: Performed By: #### H STROPN #### [facility] [address] [address] [address] Con Santana EGFR-AF COMORAN 59 mL/min/1.73m2 Critically low >=60 [facility] Comment on above: Performed By: #### H STROPN #### [facility] [address] [address] [address] Con Santana EGFR-NON AF COMORAN 48 mL/min/1.73m2 Critically low >=60 [facility] Comment on above: Performed By: #### H STROPN #### [facility] [address] [address] [address] Con Santana Glucose [Mass/Vol] 100 mg/dL Normal 74-106 [facility] Comment on above: Performed By: #### H STROPN #### [facility] [address] [address] [address] Con Santana Potassium [Moles/Vol] 3.9 mmol/L Normal 3.5-5.1 [facility] Comment on above: Performed By: #### H STROPN #### [facility] [address] [address] [address] Con Santana Sodium [Moles/Vol] 141 mmol/L Normal 136-145 [facility] Comment on above: Performed By: #### H STROPN #### [facility] [address] [place] [address] Dr. Con Santana Urea nitrogen [Mass/Vol] 27.0 mg/dL Critically high 7.0-18.0 [facility] Comment on above: Performed By: #### H STROPN #### [facility] [address] [place] [address] Dr. Con Santana Urea nitrogen/Creatinine [Mass ratio] 25.0 mg/mg Normal [facility] Comment on above: Performed By: #### H STROPN #### [facility] [address] [place] [address] Dr. Con Santana BNPon 12-31-2022 Natriuretic peptide B (Bld) [Mass/Vol] 7148.0 pg/mL Critically high <=1,800.0 [facility] Comment on above: Performed By: #### H STROPN #### [facility] [address] [place] [address] Dr. Con Santana CBC W MANUAL DIFFon 01-01-20 23 ATYPICAL LYMPH # Normal [facility] Comment on above: Performed By: #### P OCGLUC #### [facility] [address] [place] [address] Dr. Con Santana ATYPICAL LYMPH % Normal [facility] Comment on above: Performed By: #### P OCGLUC #### [facility] [address] [place] [address] Dr. Con Santana BAND # 0.0 103/ul Normal 0.0-0.3 [facility] Comment on above: Performed By: #### P OCGLUC #### [facility] [address] [place] [address] Dr. Con Santana BAND % 0 % Normal 0-5 [facility] Comment on above: Performed By: #### P OCGLUC #### [facility] [address] [place] [address] Dr. Con Santana BASOM # 0.00 103/ul Normal 0.00-0.10 [facility] Comment on above: Performed By: #### P OCGLUC #### [facility] [address] [address] [address] Con Santana BASOM % 0.0 % Critically low 0.2-2.0 [facility] Comment on above: Performed By: #### P OCGLUC #### [facility] [address] [address] [address] Con Santana BLAST # Normal [facility] Comment on above: Performed By: #### P OCGLUC #### [facility] [address] [address] [address] Con Santana BLAST % Normal [facility] Comment on above: Performed By: #### P OCGLUC #### [facility] [address] [address] [address] Con Santana CORRECTED WBC Normal 4.0-11.0 [facility] Comment on above: Performed By: #### P OCGLUC #### [facility] [address] [address] [address] Con Santana EOS # 0.00 103/ul Normal 0.00-0.70 [facility] Comment on above: Performed By: #### P OCGLUC #### [facility] [address] [address] [address] Con Santana EOS% 0.0 % Critically low 0.9-7.0 [facility] Comment on above: Performed By: #### P OCGLUC #### [facility] [address] [address] [address] Con Santana HCT 27.8 % Critically low 36.0-48.0 [facility] Comment on above: Performed By: #### P OCGLUC #### [facility] [address] [address] [address] Con Santana HGB 9.0 g/dl Critically low 12.0-16.0 [facility] Comment on above: Performed By: #### P OCGLUC #### [facility] [address] [address] [address] Con Santana LYMPHM # 0.53 103/ul Critically low 1.20-3.80 [facility] Comment on above: Performed By: #### P OCGLUC #### [facility] [address] [address] [address] Con Santana LYMPHM% 5.0 % Critically low 20.5-60.0 [facility] Comment on above: Performed By: #### P OCGLUC #### [facility] [address] [address] [address] Con Santana MCH 31.0 pg Normal 26.7-34.0 [facility] Comment on above: Performed By: #### P OCGLUC #### [facility] [address] [address] [address] Con Santana MCHC 32.4 g/dl Normal 29.9-35.2 [facility] Comment on above: Performed By: #### P OCGLUC #### [facility] [address] [address] [address] Con Santana MCV 95.9 fL Normal 81.0-99.0 [facility] Comment on above: Performed By: #### P OCGLUC #### [facility] [address] [address] [address] Con Santana METAMYELOCYTE # Normal [facility] Comment on above: Performed By: #### P OCGLUC #### [facility] [address] [address] [address] Con Santana METAMYELOCYTE % Normal [facility] Comment on above: Performed By: #### P OCGLUC #### [facility] [address] [address] [address] Con Santana MONOM# 0.11 103/ul Critically low 0.30-0.80 [facility] Comment on above: Performed By: #### P OCGLUC #### [facility] [address] [address] [address] Con Santana MONOM% 1.0 % Critically low 1.7-12.0 [facility] Comment on above: Performed By: #### P OCGLUC #### [facility] [address] [address] [address] Con Santana MPV 10.9 fL Normal 9.5-13.5 [facility] Comment on above: Performed By: #### P OCGLUC #### [facility] [address] [address] [address] Con Santana MYELOCYTE # Normal [facility] Comment on above: Performed By: #### P OCGLUC #### [facility] [address] [address] [address] Con Santana MYELOCYTE % Normal [facility] Comment on above: Performed By: #### P OCGLUC #### [facility] [address] [place] [address] Dr. Con Santana NRBC Normal [facility] Comment on above: Performed By: #### P OCGLUC #### [facility] [address] [address] [address] Con Santana PLT 184 103/ul Normal 150-450 [facility] Comment on above: Performed By: #### P OCGLUC #### [facility] [address] [address] [address] Con Santana RBC 2.90 106/ul Critically low 4.20-5.40 [facility] Comment on above: Performed By: #### P OCGLUC #### [facility] [address] [address] [address] Con Santana RDW 14.5 % Normal 11.0-15.0 [facility] Comment on above: Performed By: #### P OCGLUC #### [facility] [address] [address] [address] Con Santana SEG # 9.96 103/ul Critically high 1.40-6.50 [facility] Comment on above: Performed By: #### P OCGLUC #### [facility] [address] [place] [address] Dr. Con Santana SEG % 94.0 % Critically high 43.0-75.0 [facility] Comment on above: Performed By: #### P OCGLUC #### [facility] [address] [address] [address] Con Santana WBC 10.6 103/ul Normal 4.0-11.0 [facility] Comment on above: Performed By: #### P OCGLUC #### [facility] [address] [address] [address] Con Santana POINT OF CARE GLUCOSEon Glucose [Mass/Vol] 145 mg/dL Critically high 74-106 [facility] Comment on above: Performed By: #### I NFLUAB #### [facility] [address] [address] [address] Con Santana Glucose [Mass/Vol] 162 mg/dL Critically high [facility]106 [facility] Comment on above: Performed By: #### E LISA JAVIER #### [facility] [address] [place] [address] Dr. Con Santana Glucose [Mass/Vol] 141 mg/dL Critically high 74-106 [facility] Comment on above: Performed By: #### C BC #### [facility] [address] [place] [address] Dr. Con Santana PROF CHEM 8 (BAS METB)on Anion gap [Moles/Vol] 16.5 mmol/L Normal [facility] Comment on above: Performed By: #### H STROPN #### [facility] [address] [place] [address] Dr. Con Santana Calcium [Mass/Vol] 7.3 mg/dL Critically low 8.5-10.[address] [facility] Comment on above: Performed By: #### H STROPN #### [facility] [address] [place] [address] Dr. Con Santana Chloride [Moles/Vol] 108 mmol/L Critically high 98-107 [facility] Comment on above: Performed By: #### H STROPN #### [facility] [address] [place] [address] Dr. Con Santana CO2 [Moles/Vol] 18.5 mmol/L Critically low 21.0-32.0 [facility] Comment on above: Performed By: #### H STROPN #### [facility] [address] [address] [address] Con Santana Creatinine [Mass/Vol] 1.14 mg/dL Critically high 0.55-1.02 [facility] Comment on above: Performed By: #### H STROPN #### [facility] [address] [address] [address] Con Santana EGFR-AF COMORAN 55 mL/min/1.73m2 Critically low >=60 [facility] Comment on above: Performed By: #### H STROPN #### [facility] [address] [place] [address] Dr. Con Santana EGFR-NON AF COMORAN 45 mL/min/1.73m2 Critically low >=60 [facility] Comment on above: Performed By: #### H STROPN #### [facility] [address] [address] [address] Con Santana Glucose [Mass/Vol] 151 mg/dL Critically high 74-106 [facility] Comment on above: Performed By: #### H STROPN #### [facility] [address] [place] [address] Dr. Con Santana Potassium [Moles/Vol] 4.0 mmol/L Normal 3.5-5.1 [facility] Comment on above: Performed By: #### H STROPN #### [facility] [address] [address] [address] Con Santana Sodium [Moles/Vol] 139 mmol/L Normal 136-145 [facility] Comment on above: Performed By: #### H STROPN #### [facility] [address] [address] [address] Con Santana Urea nitrogen [Mass/Vol] 27.0 mg/dL Critically high 7.0-18.0 [facility] Comment on above: Performed By: #### H STROPN #### [facility] [address] [place] [address] Dr. Con Santana Urea nitrogen/Creatinine [Mass ratio] 23.7 mg/mg Normal [facility] Comment on above: Performed By: #### H STROPN #### [facility] [address] [place] [address] Dr. Con Santana XR CHEST 2 Von [...] ELEAZAR GUERRA Date: 2022-12-31 11:27 Normal [facility] BNPon 12-30-2022 Natriuretic peptide B (Bld) [Mass/Vol] 7840.0 pg/mL Critically high <=1,800.0 [facility] Comment on above: Performed By: #### I NFLUAB #### [facility] [address] [place] [address] Dr. Con Santana CBC AUTO DIFFon 12-30-2022 BASO # 0.0 103/ul Normal 0.0-0.1 [facility] Comment on above: Performed By: #### P OCGLUC #### [facility] [address] [place] [address] Dr. Con Santana Basophils/100 WBC (Bld) 0.2 % Normal 0.2-2.0 [facility] Comment on above: Performed By: #### P OCGLUC #### [facility] [address] [place] [address] Dr. Con Santana EO # 0.0 103/ul Normal 0.0-0.7 [facility] Comment on above: Performed By: #### P OCGLUC #### [facility] [address] [place] [address] Dr. Con Santana Eosinophils/100 WBC (Bld) 0.0 % Critically low 0.9-7.0 [facility] Comment on above: Performed By: #### P OCGLUC #### [facility] [address] [place] [address] Dr. Con Santana Erythrocyte distribution width (RBC) [Ratio] 13.6 % Normal 11.0-15.0 [facility] Comment on above: Performed By: #### P OCGLUC #### [facility] [address] [place] [address] Dr. Con Santana Hematocrit (Bld) [Volume fraction] 28.5 % Critically low 36.0-48.0 [facility] Comment on above: Performed By: #### P OCGLUC #### [facility] [address] [place] [address] Dr. Con Santana Hemoglobin (Bld) [Mass/Vol] 9.5 g/dL Critically low 12.0-16.0 [facility] Comment on above: Performed By: #### P OCGLUC #### [facility] [address] [place] [address] Dr. Con Santana IG # 0.09 10e3/ul Critically high 0.00-0.03 [facility] Comment on above: Performed By: #### P OCGLUC #### [facility] [address] [place] [address] Dr. Con Santana IG % 0.8 % Critically high 0.0-0.5 [facility] Comment on above: Performed By: #### P OCGLUC #### [facility] [address] [place] [address] Dr. Con Santana LYMPH # 0.8 103/ul Critically low 1.2-3.8 [facility] Comment on above: Performed By: #### P OCGLUC #### [facility] [address] [place] [address] Dr. Con Santana Lymphocytes/100 WBC (Bld) 6.9 % Critically low 20.5-60.0 [facility] Comment on above: Performed By: #### P OCGLUC #### [facility] [address] [place], [place] [id number] Dr. Con Santana MANUAL DIFF REQ NO Normal [facility] Comment on above: Performed By: #### P OCGLUC #### [facility] [address] [place] [address] Dr. Con Santana MCH (RBC) [Entitic mass] 31.3 pg Normal 26.7-34.0 [facility] Comment on above: Performed By: #### P OCGLUC #### [facility] [address] [place] [address] Dr. Con Santana MCHC (RBC) [Mass/Vol] 33.3 g/dL Normal 29.9-35.2 [facility] Comment on above: Performed By: #### P OCGLUC #### [facility] [address] [place] [address] Dr. Con Santana MCV (RBC) [Entitic vol] 93.8 fL Normal 81.0-99.0 [facility] Comment on above: Performed By: #### P OCGLUC #### [facility] [address] [place] [address] Dr. Con Santana MONO # 0.4 103/ul Normal 0.3-0.8 [facility] Comment on above: Performed By: #### P OCGLUC #### [facility] [address] [place] [address] Dr. Con Santana Monocytes/100 WBC (Bld) 3.1 % Normal 1.7-12.0 [facility] Comment on above: Performed By: #### P OCGLUC #### [facility] [address] [place] [address] Dr. Con Santana NEUT # 10.4 103/ul Critically high 1.4-6.5 [facility] Comment on above: Performed By: #### P OCGLUC #### [facility] [address] [place] [address] Dr. Con Santana Neutrophils/100 WBC (Bld) 89.0 % Critically high 43.0-75.0 [facility] Comment on above: Performed By: #### P OCGLUC #### [facility] [address] [place] [address] Dr. Con Santana Platelet mean volume (Bld) [Entitic vol] 10.8 fL Normal 9.5-13.5 [facility] Comment on above: Performed By: #### P OCGLUC #### [facility] [address] [address] [address] Con Santana PLT 189 103/ul Normal 150-450 [facility] Comment on above: Performed By: #### P OCGLUC #### [facility] [address] [address] [address] Con Santana RBC 3.04 106/ul Critically low 4.20-5.40 [facility] Comment on above: Performed By: #### P OCGLUC #### [facility] [address] [address] [address] Con Santana WBC 11.7 103/ul Critically high 4.0-11.0 [facility] Comment on above: Performed By: #### P OCGLUC #### [facility] [address] [address] [address] Con Santana POINT OF CARE GLUCOSEon 04-0 Glucose [Mass/Vol] 194 mg/dL Critically high 74-106 [facility] Comment on above: Performed By: #### C BC #### [facility] [address] [address] [address] Con Santana Glucose [Mass/Vol] 191 mg/dL Critically high 74-106 [facility] Comment on above: Performed By: #### I NFLUAB #### [facility] [address] [place] [address] Dr. Con Santana Glucose [Mass/Vol] 169 mg/dL Critically high 74-106 [facility] Comment on above: Performed By: #### P OCGLUC #### [facility] [address] [address] [address] Con Santana Glucose [Mass/Vol] 173 mg/dL Critically high 74-106 [facility] Comment on above: Performed By: #### I NFLUAB #### [facility] [address] [address] [address] Con Santana PROF CHEM 8 (BAS METB)on Anion gap [Moles/Vol] 18.8 mmol/L Normal [facility] Comment on above: Performed By: #### I NFLUAB #### [facility] [address] [place] [address] Dr. Con Santana Calcium [Mass/Vol] 7.3 mg/dL Critically low 8.5-10.[address] [facility] Comment on above: Performed By: #### I NFLUAB #### [facility] [address] [address] [address] Con Santana Chloride [Moles/Vol] 109 mmol/L Critically high 98-107 [facility] Comment on above: Performed By: #### I NFLUAB #### [facility] [address] [place] [address] Dr. Con Santana CO2 [Moles/Vol] 17.3 mmol/L Critically low 21.0-32.0 [facility] Comment on above: Performed By: #### I NFLUAB #### [facility] [address] [place] [address] Dr. Con Santana Creatinine [Mass/Vol] 1.28 mg/dL Critically high 0.55-1.02 [facility] Comment on above: Performed By: #### I NFLUAB #### [facility] [address] [place] [address] Dr. Con Santana EGFR-AF COMORAN 48 mL/min/1.73m2 Critically low >=60 [facility] Comment on above: Performed By: #### I NFLUAB #### [facility] [address] [address] [address] Con Santana EGFR-NON AF COMORAN 40 mL/min/1.73m2 Critically low >=60 [facility] Comment on above: Performed By: #### I NFLUAB #### [facility] [address] [place] [address] Dr. Con Santana Glucose [Mass/Vol] 161 mg/dL Critically high 74-106 [facility] Comment on above: Performed By: #### I NFLUAB #### [facility] [address] [address] [address] Con Santana Potassium [Moles/Vol] 3.1 mmol/L Critically low 3.5-5.1 [facility] Comment on above: Performed By: #### I NFLUAB #### [facility] [address] [address] [address] Con Santana Sodium [Moles/Vol] 142 mmol/L Normal 136-145 [facility] Comment on above: Performed By: #### I NFLUAB #### [facility] [address] [place] [address] Dr. Con Santana Urea nitrogen [Mass/Vol] 24.0 mg/dL Critically high 7.0-18.0 [facility] Comment on above: Performed By: #### I NFLUAB #### [facility] [address] [place] [address] Dr. Con Santana Urea nitrogen/Creatinine [Mass ratio] 18.8 mg/mg Normal [facility] Comment on above: Performed By: #### I NFLUAB #### [facility] [address] [place] [address] Dr. Con Santana UA RANDOM W/MICROSCOPICon BACTERIA NONE SEEN Normal NONE SEEN [facility] Comment on above: Performed By: #### P OCGLUC #### [facility] [address] [place] [address] Dr. oCn Santana Bilirubin Ql (U) Negative Normal NEGATIVE [facility] Comment on above: Performed By: #### P OCGLUC #### [facility] [address] [place] [address] Dr. Con Santana CAST NONE SEEN Normal NONE SEEN [facility] Comment on above: Performed By: #### P OCGLUC #### [facility] [address] [place] [address] Dr. Con Santana Clarity (U) CLEAR Normal CLEAR [facility] Comment on above: Performed By: #### P OCGLUC #### [facility] [address] [place] [address] Dr. Con Santana Color (U) LT. YELLOW Normal YELLOW [facility] Comment on above: Performed By: #### P OCGLUC #### [facility] [address] [address] [address] Con Santana Crystals LM Nom (Urine sed) NONE SEEN Normal NONE SEEN [facility] Comment on above: Performed By: #### P OCGLUC #### [facility] [address] [address] [address] Con Santana Epithelial cells LM Ql (Urine sed) FEW Abnormal NONE SEEN /RARE [facility] Comment on above: Performed By: #### P OCGLUC #### [facility] [address] [address] [address] Con Santana Glucose Ql (U) Negative Normal NEGATIVE [facility] Comment on above: Performed By: #### P OCGLUC #### [facility] [address] [place] [address] Dr. Con Santana Hemoglobin Ql (U) Negative Normal NEGATIVE [facility] Comment on above: Performed By: #### P OCGLUC #### [facility] [address] [address] [address] Con Santana Ketones Ql (U) Negative Normal NEGATIVE [facility] Comment on above: Performed By: #### P OCGLUC #### [facility] [address] [address] [address] Con Santana LEUKOCYTES TRACE Abnormal NEGATIVE [facility] Comment on above: Performed By: #### P OCGLUC #### [facility] [address] [address] [address] Con Santana MUCOUS NONE SEEN Normal NONE SEEN [facility] Comment on above: Performed By: #### P OCGLUC #### [facility] [address] [address] [address] Con Santana Nitrite Ql (U) Negative Normal NEGATIVE [facility] Comment on above: Performed By: #### P OCGLUC #### [facility] [address] [place] [address] Dr. Con Santana pH (U) 5.5 [pH] Normal 5-9 [facility] Comment on above: Performed By: #### P OCGLUC #### [facility] [address] [address] [address] Con Santana RBC 0-2 Normal 0-2 [facility] Comment on above: Performed By: #### P OCGLUC #### [facility] [address] [address] [address] Con Santana SPEC GRAVITY 1.010 Normal 1.005-<=1.025 [facility] Comment on above: Performed By: #### P OCGLUC #### [facility] [address] [address] [address] Con Santana UA PROTEIN Negative Normal NEGATIVE/ TRACE [facility] Comment on above: Performed By: #### P OCGLUC #### [facility] [address] [place] [address] Dr. Con Santana Urobilinogen Qn (U) 0.2 {Godfrey'U}/dL Normal 0.2 - 1. 0 [facility] Comment on above: Performed By: #### P OCGLUC #### [facility] [address] [address] [address] Con Santana WBC 2-5 Abnormal NONE SEEN [facility] Comment on above: Performed By: #### P OCGLUC #### [facility] [address] [place] [address] Dr. Con Santana XR CHEST 2 Von [...] ELEAZAR GUERRA Date: 2022-12-30 11:35 Normal [facility] BNPon 12-29-2022 Natriuretic peptide B (Bld) [Mass/Vol] 4120.0 pg/mL Critically high <=1,800.0 [facility] Comment on above: Performed By: #### E LISA JAVIER #### [facility] [address] [place] [address] Dr. Con Santana Natriuretic peptide B (Bld) [Mass/Vol] 3274.0 pg/mL Critically high <=1,800.0 [facility] Comment on above: Performed By: #### P OCGLUC #### [facility] [address] [place] [address] Dr. Con Santana CBC AUTO DIFFon 12-29-2022 BASO # 0.0 103/ul Normal 0.0-0.1 [facility] Comment on above: Performed By: #### C BC #### [facility] [address] [place] [address] Dr. Con Santana Basophils/100 WBC (Bld) 0.0 % Critically low 0.2-2.0 [facility] Comment on above: Performed By: #### C BC #### [facility] [address] [place] [address] Dr. Con Santana EO # 0.0 103/ul Normal 0.0-0.7 [facility] Comment on above: Performed By: #### C BC #### [facility] [address] [place] [address] Dr. Con Santana Eosinophils/100 WBC (Bld) 0.2 % Critically low 0.9-7.0 [facility] Comment on above: Performed By: #### C BC #### [facility] [address] [place] [address] Dr. Con Santana Erythrocyte distribution width (RBC) [Ratio] 13.6 % Normal 11.0-15.0 [facility] Comment on above: Performed By: #### C BC #### [facility] [address] [place] [address] Dr. Con Santana Hematocrit (Bld) [Volume fraction] 29.8 % Critically low 36.0-48.0 [facility] Comment on above: Performed By: #### C BC #### [facility] [address] [address] [address] Con Santana Hemoglobin (Bld) [Mass/Vol] 9.5 g/dL Critically low 12.0-16.0 [facility] Comment on above: Performed By: #### C BC #### [facility] [address] [address] [address] Con Santana IG # 0.05 10e3/ul Critically high 0.00-0.03 [facility] Comment on above: Performed By: #### C BC #### [facility] [address] [address] [address] Con Santana IG % 0.9 % Critically high 0.0-0.5 [facility] Comment on above: Performed By: #### C BC #### [facility] [address] [address] [address] Con Santana LYMPH # 0.7 103/ul Critically low 1.2-3.8 [facility] Comment on above: Performed By: #### C BC #### [facility] [address] [address] [address] Con Santana Lymphocytes/100 WBC (Bld) 13.0 % Critically low 20.5-60.0 [facility] Comment on above: Performed By: #### C BC #### [facility] [address] [place] [address] Dr. Con Santana MANUAL DIFF REQ NO Normal [facility] Comment on above: Performed By: #### C BC #### [facility] [address] [address] [address] Con Santana MCH (RBC) [Entitic mass] 30.5 pg Normal 26.7-34.0 [facility] Comment on above: Performed By: #### C BC #### [facility] [address] [place] [address] Dr. Con Santana MCHC (RBC) [Mass/Vol] 31.9 g/dL Normal 29.9-35.2 [facility] Comment on above: Performed By: #### C BC #### [facility] [address] [address] [address] Con Santana MCV (RBC) [Entitic vol] 95.8 fL Normal 81.0-99.0 [facility] Comment on above: Performed By: #### C BC #### [facility] [address] [address] [address] Con Santana MONO # 0.1 103/ul Critically low 0.3-0.8 [facility] Comment on above: Performed By: #### C BC #### [facility] [address] [address] [address] Con Santana Monocytes/100 WBC (Bld) 1.5 % Critically low 1.7-12.0 [facility] Comment on above: Performed By: #### C BC #### [facility] [address] [address] [address] Con Santana NEUT # 4.5 103/ul Normal 1.4-6.5 [facility] Comment on above: Performed By: #### C BC #### [facility] [address] [address] [address] Con Santana Neutrophils/100 WBC (Bld) 84.4 % Critically high 43.0-75.0 [facility] Comment on above: Performed By: #### C BC #### [facility] [address] [address] [address] Con Santana Platelet mean volume (Bld) [Entitic vol] 10.3 fL Normal 9.5-13.5 [facility] Comment on above: Performed By: #### C BC #### [facility] [address] [address] [address] Con Santana PLT 178 103/ul Normal 150-450 [facility] Comment on above: Performed By: #### C BC #### [facility] [address] [address] [address] Con Santana RBC 3.11 106/ul Critically low 4.20-5.40 [facility] Comment on above: Performed By: #### C BC #### [facility] [address] [address] [address] Con Santana WBC 5.3 103/ul Normal 4.0-11.0 [facility] Comment on above: Performed By: #### C BC #### [facility] [address] [address] [address] Con Santana BASO # 0.0 103/ul Normal 0.0-0.1 [facility] Comment on above: Performed By: #### C BC #### [facility] [address] [place] [address] Dr. Con Santana Basophils/100 WBC (Bld) 0.1 % Critically low 0.2-2.0 [facility] Comment on above: Performed By: #### C BC #### [facility] [address] [place] [address] Dr. Con Santana EO # 0.4 103/ul Normal 0.0-0.7 [facility] Comment on above: Performed By: #### C BC #### [facility] [address] [place] [address] Dr. Con Santana Eosinophils/100 WBC (Bld) 5.9 % Normal 0.9-7.0 [facility] Comment on above: Performed By: #### C BC #### [facility] [address] [place] [address] Dr. Con Santana Erythrocyte distribution width (RBC) [Ratio] 13.5 % Normal 11.0-15.0 [facility] Comment on above: Performed By: #### C BC #### [facility] [address] [place] [address] Dr. Con Santana Hematocrit (Bld) [Volume fraction] 29.4 % Critically low 36.0-48.0 [facility] Comment on above: Performed By: #### C BC #### [facility] [address] [place] [address] Dr. Con Santana Hemoglobin (Bld) [Mass/Vol] 9.5 g/dL Critically low 12.0-16.0 [facility] Comment on above: Performed By: #### C BC #### [facility] [address] [address] [address] Con Santana IG # 0.04 10e3/ul Critically high 0.00-0.03 [facility] Comment on above: Performed By: #### C BC #### [facility] [address] [place] [address] Dr. Con Santana IG % 0.6 % Critically high 0.0-0.5 [facility] Comment on above: Performed By: #### C BC #### [facility] [address] [place] [address] Dr. Con Santana LYMPH # 1.1 103/ul Critically low 1.2-3.8 [facility] Comment on above: Performed By: #### C BC #### [facility] [address] [place] [address] Dr. Con Santana Lymphocytes/100 WBC (Bld) 15.7 % Critically low 20.5-60.0 [facility] Comment on above: Performed By: #### C BC #### [facility] [address] [place] [address] Dr. Con Santana MANUAL DIFF REQ NO Normal [facility] Comment on above: Performed By: #### C BC #### [facility] [address] [place] [address] Dr. Con Santana MCH (RBC) [Entitic mass] 31.3 pg Normal 26.7-34.0 [facility] Comment on above: Performed By: #### C BC #### [facility] [address] [place] [address] Dr. Con Santana MCHC (RBC) [Mass/Vol] 32.3 g/dL Normal 29.9-35.2 [facility] Comment on above: Performed By: #### C BC #### [facility] [address] [place] [address] Dr. Con Santana MCV (RBC) [Entitic vol] 96.7 fL Normal 81.0-99.0 [facility] Comment on above: Performed By: #### C BC #### [facility] [address] [place] [address] Dr. Con Santana MONO # 0.4 103/ul Normal 0.3-0.8 [facility] Comment on above: Performed By: #### C BC #### [facility] [address] [place] [address] Dr. Con Santana Monocytes/100 WBC (Bld) 5.9 % Normal 1.7-12.0 [facility] Comment on above: Performed By: #### C BC #### [facility] [address] [place] [address] Dr. Con Santana NEUT # 5.0 103/ul Normal 1.4-6.5 [facility] Comment on above: Performed By: #### C BC #### [facility] [address] [place] [address] Dr. Con Santana Neutrophils/100 WBC (Bld) 71.8 % Normal 43.0-75.0 [facility] Comment on above: Performed By: #### C BC #### [facility] [address] [place] [address] Dr. Con Santana Platelet mean volume (Bld) [Entitic vol] 10.0 fL Normal 9.5-13.5 [facility] Comment on above: Performed By: #### C BC #### [facility] [address] [place] [address] Dr. Con Santana PLT 173 103/ul Normal 150-450 [facility] Comment on above: Performed By: #### C BC #### [facility] [address] [place] [address] Dr. Con Santana RBC 3.04 106/ul Critically low 4.20-5.40 [facility] Comment on above: Performed By: #### C BC #### [facility] [address] [place] [address] Dr. Con Santana WBC 7.0 103/ul Normal 4.0-11.0 [facility] Comment on above: Performed By: #### C BC #### [facility] [address] [place] [address] Dr. Con Santana ECHOCARDIO M/2D COMPLETEon 0 12-29-2022 ECHOCARDIO M/2D COMPLETE Patient: SALOME DOMINGUEZ Exam Date: 12/29/2022 : 1940 Gender:F Ordering : SIVA CROSS Admission #: [id number] Family : DR MATHIASLAS MANUEL . Order #: [id number] CLICK HERE TO VIEW EXAM ECHOCARDIOGRAM REPORT [...] Varma M.D. on 01/01/2023 at 09:24 Normal [facility] LACTATE/LACTIC ACIDon 2022 Lactate [Moles/Vol] 0.6 mmol/L Normal 0.4-2.0 [facility] Comment on above: Performed By: #### C BC #### [facility] [address] [place] [address] Dr. Con Santana PH VENOUS BLOODon 12-29-2022 PCO2 VENOUS 34.6 mmHg Critically low 40.0-52.0 [facility] Comment on above: Performed By: #### C BC #### [facility] [address] [address] [address] Con Santana pH VENOUS 7.343 Normal 7.330-7.430 [facility] Comment on above: Performed By: #### C BC #### [facility] [address] [place] [address] Dr. Con Santana POINT OF CARE GLUCOSEon Glucose [Mass/Vol] 217 mg/dL Critically high -106 [facility] Comment on above: Performed By: #### C BC #### [facility] [address] [address] [address] Con Santana Glucose [Mass/Vol] 199 mg/dL Critically high -106 [facility] Comment on above: Performed By: #### C BC #### [facility] [address] [address] [address] Con Santana Glucose [Mass/Vol] 202 mg/dL Critically high -106 [facility] Comment on above: Performed By: #### P OCGLUC #### [facility] [address] [address] [address] Con Santana PROF 14(COMP METB)on 023 Albumin [Mass/Vol] 2.6 g/dL Critically low 3.4-5.0 [facility] Comment on above: Performed By: #### P OCGLUC #### [facility] [address] [place] [address] Dr. Con Santana Albumin/Globulin [Mass ratio] 1.1 {ratio} Normal [facility] Comment on above: Performed By: #### P OCGLUC #### [facility] [address] [address] [address] Con Santana ALP [Catalytic activity/Vol] 67 U/L Normal 46-116 [facility] Comment on above: Performed By: #### P OCGLUC #### [facility] [address] [address] [address] Con Santana ALT [Catalytic activity/Vol] 69 U/L Critically high 14-59 [facility] Comment on above: Performed By: #### P OCGLUC #### [facility] [address] [address] [address] Con Santana Anion gap [Moles/Vol] 15.0 mmol/L Normal [facility] Comment on above: Performed By: #### P OCGLUC #### [facility] [address] [address] [address] Con Santana AST [Catalytic activity/Vol] 24 U/L Normal 15-37 [facility] Comment on above: Performed By: #### P OCGLUC #### [facility] [address] [address] [address] Con Santana Bilirubin [Mass/Vol] 0.3 mg/dL Normal 0.2-1.0 [facility] Comment on above: Performed By: #### P OCGLUC #### [facility] [address] [address] [address] Con Santana Calcium [Mass/Vol] 7.4 mg/dL Critically low 8.5-10.[address] [facility] Comment on above: Performed By: #### P OCGLUC #### [facility] [address] [address] [address] Con Santana Chloride [Moles/Vol] 110 mmol/L Critically high 98-107 [facility] Comment on above: Performed By: #### P OCGLUC #### [facility] [address] [address] [address] Con Santana CO2 [Moles/Vol] 21.1 mmol/L Normal 21.0-32.0 [facility] Comment on above: Performed By: #### P OCGLUC #### [facility] [address] [address] [address] Con Santana Creatinine [Mass/Vol] 0.79 mg/dL Normal 0.55-1.02 [facility] Comment on above: Performed By: #### P OCGLUC #### [facility] [address] [address] [address] Con Santana EGFR-AF COMORAN >60 Normal >=60 [facility] Comment on above: Performed By: #### P OCGLUC #### [facility] [address] [address] [address] Con Santana EGFR-NON AF COMORAN >60 Normal >=60 [facility] Comment on above: Performed By: #### P OCGLUC #### [facility] [address] [address] [address] Con Santana Globulin (S) [Mass/Vol] 2.3 g/dL Normal [facility] Comment on above: Performed By: #### P OCGLUC #### [facility] [address] [address] [address] Con Santana Glucose [Mass/Vol] 115 mg/dL Critically high 74-106 [facility] Comment on above: Performed By: #### P OCGLUC #### [facility] [address] [address] [address] Con Santana Potassium [Moles/Vol] 4.1 mmol/L Normal 3.5-5.1 [facility] Comment on above: Performed By: #### P OCGLUC #### [facility] [address] [address] [address] Con Santana Protein [Mass/Vol] 4.9 g/dL Critically low 6.4-8.[address] [facility] Comment on above: Performed By: #### P OCGLUC #### [facility] [address] [address] [address] Con Santana Sodium [Moles/Vol] 142 mmol/L Normal 136-145 [facility] Comment on above: Performed By: #### P OCGLUC #### [facility] [address] [place] [address] Dr. Con Santana Urea nitrogen [Mass/Vol] 19.0 mg/dL Critically high 7.0-18.0 [facility] Comment on above: Performed By: #### P OCGLUC #### [facility] [address] [place] [address] Dr. Con Santana Urea nitrogen/Creatinine [Mass ratio] 24.1 mg/mg Normal [facility] Comment on above: Performed By: #### P OCGLUC #### [facility] [address] [place] [address] Dr. Con Santana PROF CHEM 8 (BAS METB)on Anion gap [Moles/Vol] 13.5 mmol/L Normal [facility] Comment on above: Performed By: #### TIM INTERIANORO #### [facility] [address] [place] [address] Dr. Con Santana Calcium [Mass/Vol] 7.6 mg/dL Critically low 8.5-10.[address] [facility] Comment on above: Performed By: #### TIM INTERIANORO #### [facility] [address] [place] [address] Dr. Con Santana Chloride [Moles/Vol] 110 mmol/L Critically high 98-107 [facility] Comment on above: Performed By: #### Anaya JAVIER UMICRO #### [facility] [address] [place] [address] Dr. Con Santana CO2 [Moles/Vol] 18.7 mmol/L Critically low 21.0-32.0 [facility] Comment on above: Performed By: #### TIM INTERIANORO #### [facility] [address] [place] [address] Dr. Con Santana Creatinine [Mass/Vol] 0.79 mg/dL Normal 0.55-1.02 [facility] Comment on above: Performed By: #### Anaya JAVIER UMICRO #### [facility] [address] [place] [address] Dr. Con Santana EGFR-AF COMORAN >60 Normal >=60 [facility] Comment on above: Performed By: #### LISA INTERIANO #### [facility] [address] [place] [address] Dr. Con Santana EGFR-NON AF COMORAN >60 Normal >=60 [facility] Comment on above: Performed By: #### LISA INTERIANO #### [facility] [address] [place] [address] Dr. Con Santana Glucose [Mass/Vol] 155 mg/dL Critically high 74-106 [facility] Comment on above: Performed By: #### LISA INTERIANO #### [facility] [address] [place] [address] Dr. Con Santana Potassium [Moles/Vol] 4.2 mmol/L Normal 3.5-5.1 [facility] Comment on above: Performed By: #### LISA INTERIANO #### [facility] [address] [place] [address] Dr. Con Santana Sodium [Moles/Vol] 138 mmol/L Normal 136-145 [facility] Comment on above: Performed By: #### LISA INTERIANO #### [facility] [address] [place] [address] Dr. Con Santana Urea nitrogen [Mass/Vol] 21.0 mg/dL Critically high 7.0-18.0 [facility] Comment on above: Performed By: #### LISA INTERIANO #### [facility] [address] [place] [address] Dr. Con Santana Urea nitrogen/Creatinine [Mass ratio] 26.6 mg/mg Normal [facility] Comment on above: Performed By: #### TIM INTERIANORO #### [facility] [address] [place] [address] Dr. Con Santana PROTIMEon 12-29-2022 INR Coag (PPP) [Relative time] 1.00 {INR} Normal [facility] Comment on above: Performed By: #### P OCGLUC #### [facility] [address] [place] [address] Dr. Con Santana INR GUIDELINES SEE BELOW Normal [facility] Comment on above: Result Comment: CANDELARIA RED INR: 2.0 - 3.0 CONDITIONS NOT LISTED BELOW 2.5 - 3.5 FOR PROSTHETIC HEART VALVE REPLACEMENT 2.5 - 3.5 RECURRENT THROMBOSIS Performed By: #### P OCGLUC #### [facility] [address] [place] [address] Dr. Con Santana PT Coag (PPP) [Time] 10.6 s Normal 9.0-11.6 [facility] Comment on above: Performed By: #### P OCGLUC #### [facility] [facility] [address] [place] [address] Dr. Con Santana PTTon 12-29-2022 aPTT Coag (Bld) [Time] 28.2 s Normal 22.3-36.2 [facility] Comment on above: Performed By: #### I NFLUAB #### [facility] [address] [place] [address] Dr. Con Santana TROPONIN, HIGH SENSITIVITYon 12-29-2022 HSTROP 16.0 pg/mL Normal 4.0-51.3 [facility] Comment on above: Result Comment: CUT- OFF POINTS HAVE BEEN ESTABLISHED BASED ON THE FOURTH UNIVERSAL DEFINITIONS OF MYOCARDIAL INFARCTION. THE UPPER REFERENCE LIMIT (URL) OF TROPONIN, DEFINED THE 99TH PERCENTILE OF cTnI DISTRIBUTION IN A REFERENCE POPULATION, HAS BEEN CONFIRMED THE DECISION THRESHOLD FOR RI DIAGNOSIS. Performed By: #### H STROPN #### [facility] [address] [place] [address] Dr. Con Santana HSTROP 23.6 pg/mL Normal 4.0-51.3 [facility] Comment on above: Result Comment: CUT- OFF POINTS HAVE BEEN ESTABLISHED BASED ON THE FOURTH UNIVERSAL DEFINITIONS OF MYOCARDIAL INFARCTION. THE UPPER REFERENCE LIMIT (URL) OF TROPONIN, DEFINED THE 99TH PERCENTILE OF cTnI DISTRIBUTION IN A REFERENCE POPULATION, HAS BEEN CONFIRMED THE DECISION THRESHOLD FOR RI DIAGNOSIS. Performed By: #### P OCGLUC #### [facility] [address] [place] [address] Dr. Con Santana XR CHEST 1 Von [...] TRINI CISNEROS Date: 2022-12-28 22:49 Normal [facility] SARS-CoV-2 (COVID-19) RNA JEANE+probe Ql (Unsp spec) Not detected Normal NOT DETECTED [facility] Comment on above: Result Comment: When diagnostic [...] for this test is supported by the [place] of Health and Human Service's declaration that [...] used). Performed By: #### C VDTBH #### [facility] [address] [place] [address] Dr. Con Santana PH VENOUS BLOODon 12-28-2022 PCO2 VENOUS 40.4 mmHg Normal 40.0-52.0 [facility] Comment on above: Performed By: #### I NFLUAB #### [facility] [address] [place] [address] Dr. Con Santana pH VENOUS 7.297 Critically low 7.330-7.430 [facility] Comment on above: Performed By: #### I NFLUAB #### [facility] [address] [place] [address] Dr. Con Santana CBC W MANUAL DIFFon 12-23-19 23 ATYPICAL LYMPH # Normal [facility] Comment on above: Performed By: #### C BC #### [facility] [address] [place] [address] Dr. Con Santana ATYPICAL LYMPH % Normal [facility] Comment on above: Performed By: #### C BC #### [facility] [address] [place] [address] Dr. Con Santana BAND # 0.0 103/ul Normal 0.0-0.3 [facility] Comment on above: Performed By: #### C BC #### [facility] [address] [place] [address] Dr. Con Santana BAND % 0 % Normal 0-5 [facility] Comment on above: Performed By: #### C BC #### [facility] [address] [place] [address] Dr. Con Santana BASOM # 0.00 103/ul Normal 0.00-0.10 [facility] Comment on above: Performed By: #### C BC #### [facility] [address] [place] [address] Dr. Con Santana BASOM % 0.0 % Critically low 0.2-2.0 [facility] Comment on above: Performed By: #### C BC #### [facility] [address] [place] [address] Dr. Con Santana BLAST # Normal [facility] Comment on above: Performed By: #### C BC #### [facility] [address] [place] [address] Dr. Con Santana BLAST % Normal [facility] Comment on above: Performed By: #### C BC #### [facility] [address] [place] [address] Dr. Con Santana CORRECTED WBC Normal 4.0-11.0 [facility] Comment on above: Performed By: #### C BC #### [facility] [address] [address] [address] Con Santana EOS # 0.00 103/ul Normal 0.00-0.70 [facility] Comment on above: Performed By: #### C BC #### [facility] [address] [address] [address] Con Santana EOS% 0.0 % Critically low 0.9-7.0 [facility] Comment on above: Performed By: #### C BC #### [facility] [address] [address] [address] Con Santana HCT 31.2 % Critically low 36.0-48.0 [facility] Comment on above: Performed By: #### C BC #### [facility] [address] [address] [address] Con Santana HGB 10.2 g/dl Critically low 12.0-16.0 [facility] Comment on above: Performed By: #### C BC #### [facility] [address] [address] [address] Con Santana LYMPHM # 0.32 103/ul Critically low 1.20-3.80 [facility] Comment on above: Performed By: #### C BC #### [facility] [address] [address] [address] Con Santana LYMPHM% 3.0 % Critically low 20.5-60.0 [facility] Comment on above: Performed By: #### C BC #### [facility] [address] [address] [address] Con Santana MCH 30.7 pg Normal 26.7-34.0 [facility] Comment on above: Performed By: #### C BC #### [facility] [address] [address] [address] Con Santana MCHC 32.7 g/dl Normal 29.9-35.2 [facility] Comment on above: Performed By: #### C BC #### [facility] [address] [place] [address] Dr. Con Santana MCV 94.0 fL Normal 81.0-99.0 [facility] Comment on above: Performed By: #### C BC #### [facility] [address] [place] [address] Dr. Con Santana METAMYELOCYTE # Normal [facility] Comment on above: Performed By: #### C BC #### [facility] [address] [place] [address] Dr. Con Santana METAMYELOCYTE % Normal [facility] Comment on above: Performed By: #### C BC #### [facility] [address] [place] [address] Dr. Con Santana MONOM# 0.11 103/ul Critically low 0.30-0.80 [facility] Comment on above: Performed By: #### C BC #### [facility] [address] [place] [address] Dr. Con Santana MONOM% 1.0 % Critically low 1.7-12.0 [facility] Comment on above: Performed By: #### C BC #### [facility] [address] [place] [address] Dr. Con Santana MPV 10.6 fL Normal 9.5-13.5 [facility] Comment on above: Performed By: #### C BC #### [facility] [address] [place] [address] Dr. Con Santana MYELOCYTE # Normal [facility] Comment on above: Performed By: #### C BC #### [facility] [address] [place] [address] Dr. Con Santana MYELOCYTE % Normal [facility] Comment on above: Performed By: #### C BC #### [facility] [address] [place] [address] Dr. Con Santana NRBC Normal [facility] Comment on above: Performed By: #### C BC #### [facility] [address] [place] [address] Dr. Con Santana PLT 242 103/ul Normal 150-450 [facility] Comment on above: Performed By: #### C BC #### [facility] [address] [address] [address] Con Santana RBC 3.32 106/ul Critically low 4.20-5.40 [facility] Comment on above: Performed By: #### C BC #### [facility] [address] [address] [address] Con Santana RDW 13.2 % Normal 11.0-15.0 [facility] Comment on above: Performed By: #### C BC #### [facility] [address] [address] [address] Con Santana SEG # 10.18 103/ul Critically high 1.40-6.50 [facility] Comment on above: Performed By: #### C BC #### [facility] [address] [address] [address] Con Santana SEG % 96.0 % Critically high 43.0-75.0 [facility] Comment on above: Performed By: #### C BC #### [facility] [address] [address] [address] Con Santana WBC 10.6 103/ul Normal 4.0-11.0 [facility] Comment on above: Performed By: #### C BC #### [facility] [address] [address] [address] Con Santana POINT OF CARE GLUCOSEon 11-27 Glucose [Mass/Vol] 139 mg/dL Critically high 74-106 [facility] Comment on above: Performed By: #### I NFLUAB #### [facility] [address] [address] [address] Con Santana Glucose [Mass/Vol] 151 mg/dL Critically high -106 [facility] Comment on above: Performed By: #### I NFLUAB #### [facility] [address] [address] [address] Con Santana Glucose [Mass/Vol] 200 mg/dL Critically high -106 [facility] Comment on above: Performed By: #### P OCGLUC #### [facility] [address] [address] [address] Con Santana PROF CHEM 8 (BAS METB)on Anion gap [Moles/Vol] 17.1 mmol/L Normal [facility] Comment on above: Performed By: #### P OCGLUC #### [facility] [address] [address] [address] Con Santana Calcium [Mass/Vol] 7.7 mg/dL Critically low 8.5-10.[address] [facility] Comment on above: Performed By: #### P OCGLUC #### [facility] [address] [address] [address] Con Santana Chloride [Moles/Vol] 111 mmol/L Critically high 98-107 [facility] Comment on above: Performed By: #### P OCGLUC #### [facility] [address] [place] [address] Dr. Con Santana CO2 [Moles/Vol] 17.1 mmol/L Critically low 21.0-32.0 [facility] Comment on above: Performed By: #### P OCGLUC #### [facility] [address] [place] [address] Dr. Con Santana Creatinine [Mass/Vol] 1.46 mg/dL Critically high 0.55-1.02 [facility] Comment on above: Performed By: #### P OCGLUC #### [facility] [address] [place] [address] Dr. Con Santana EGFR-AF COMORAN 41 mL/min/1.73m2 Critically low >=60 [facility] Comment on above: Performed By: #### P OCGLUC #### [facility] [address] [place] [address] Dr. Con Santana EGFR-NON AF COMORAN 34 mL/min/1.73m2 Critically low >=60 [facility] Comment on above: Performed By: #### P OCGLUC #### [facility] [address] [place] [address] Dr. Con Santana Glucose [Mass/Vol] 167 mg/dL Critically high 74-106 [facility] Comment on above: Performed By: #### P OCGLUC #### [facility] [address] [address] [address] Con Santana Potassium [Moles/Vol] 3.2 mmol/L Critically low 3.5-5.1 [facility] Comment on above: Performed By: #### P OCGLUC #### [facility] [address] [address] [address] Con Santana Sodium [Moles/Vol] 142 mmol/L Normal 136-145 [facility] Comment on above: Performed By: #### P OCGLUC #### [facility] [address] [address] [address] Con Santana Urea nitrogen [Mass/Vol] 40.0 mg/dL Critically high 7.0-18.0 [facility] Comment on above: Performed By: #### P OCGLUC #### [facility] [address] [place] [address] Dr. Con Santana Urea nitrogen/Creatinine [Mass ratio] 27.4 mg/mg Normal [facility] Comment on above: Performed By: #### P OCGLUC #### [facility] [address] [place] [address] Dr. Con Santana XR CHEST 1 Von [...] BRINA HENRY Date: 2022-12-22 07:32 Normal [facility] POINT OF CARE GLUCOSEon 11-27 Glucose [Mass/Vol] 195 mg/dL Critically high 74-106 [facility] Comment on above: Performed By: #### P OCGLUC #### [facility] [address] [place] [address] Dr. Con Santana Glucose [Mass/Vol] 174 mg/dL Critically high 74-106 [facility] Comment on above: Performed By: #### C BC #### [facility] [address] [address] [address] Con Santana Glucose [Mass/Vol] 148 mg/dL Critically high 74-106 [facility] Comment on above: Performed By: #### C BC #### [facility] [address] [place] [address] Dr. Con Santana BNPon 12-20-2022 Natriuretic peptide B (Bld) [Mass/Vol] 1276.0 pg/mL Normal <=1,800.0 [facility] Comment on above: Performed By: #### H STROPN #### [facility] [address] [place] [address] Dr. Con Santana CARDIAC MAXIMILIANO ADMITon 023 CK [Catalytic activity/Vol] 101 U/L Normal 26-192 [facility] Comment on above: Performed By: #### H STROPN #### [facility] [address] [place] [address] Dr. Con Santana CK.MB [Mass/Vol] 1.61 ng/mL Normal <=3.60 [facility] Comment on above: Performed By: #### H STROPN #### [facility] [address] [place] [address] Dr. Con Santana HSTROP 19.8 pg/mL Normal 4.0-51.3 [facility] Comment on above: Result Comment: CUT- OFF POINTS HAVE BEEN ESTABLISHED BASED ON THE FOURTH UNIVERSAL DEFINITIONS OF MYOCARDIAL INFARCTION. THE UPPER REFERENCE LIMIT (URL) OF TROPONIN, DEFINED THE 99TH PERCENTILE OF cTnI DISTRIBUTION IN A REFERENCE POPULATION, HAS BEEN CONFIRMED THE DECISION THRESHOLD FOR RI DIAGNOSIS. Performed By: #### H STROPN #### [facility] [address] [address] [address] Con Snatana RAMONA 76 ng/mL Normal 9-82 [facility] Comment on above: Performed By: #### H STROPN #### [facility] [address] [address] [address] Con Santana CBC AUTO DIFFon 12-20-2022 BASO # 0.1 103/ul Normal 0.0-0.1 [facility] Comment on above: Performed By: #### P OCGLUC #### [facility] [address] [address] [address] Con Santana Basophils/100 WBC (Bld) 0.9 % Normal 0.2-2.0 [facility] Comment on above: Performed By: #### P OCGLUC #### [facility] [address] [place] [address] Dr. Con Santana EO # 0.8 103/ul Critically high 0.0-0.7 [facility] Comment on above: Performed By: #### P OCGLUC #### [facility] [address] [address] [address] Con Santana Eosinophils/100 WBC (Bld) 12.8 % Critically high 0.9-7.0 [facility] Comment on above: Performed By: #### P OCGLUC #### [facility] [address] [place] [address] Dr. Con Santana Erythrocyte distribution width (RBC) [Ratio] 13.0 % Normal 11.0-15.0 [facility] Comment on above: Performed By: #### P OCGLUC #### [facility] [address] [place] [address] Dr. Con Santana Hematocrit (Bld) [Volume fraction] 40.9 % Normal 36.0-48.0 [facility] Comment on above: Performed By: #### P OCGLUC #### [facility] [address] [place] [address] Dr. Con Santana Hemoglobin (Bld) [Mass/Vol] 13.3 g/dL Normal 12.0-16.0 [facility] Comment on above: Performed By: #### P OCGLUC #### [facility] [address] [address] [address] Con Santana IG # 0.01 10e3/ul Normal 0.00-0.03 [facility] Comment on above: Performed By: #### P OCGLUC #### [facility] [address] [address] [address] Con Santana IG % 0.2 % Normal 0.0-0.5 [facility] Comment on above: Performed By: #### P OCGLUC #### [facility] [address] [address] [address] Con Santana LYMPH # 3.3 103/ul Normal 1.2-3.8 [facility] Comment on above: Performed By: #### P OCGLUC #### [facility] [address] [place] [address] Dr. Con Santana Lymphocytes/100 WBC (Bld) 51.5 % Normal 20.5-60.0 [facility] Comment on above: Performed By: #### P OCGLUC #### [facility] [address] [address] [address] Con Santana MANUAL DIFF REQ NO Normal [facility] Comment on above: Performed By: #### P OCGLUC #### [facility] [address] [place] [address] Dr. Con Santana MCH (RBC) [Entitic mass] 31.3 pg Normal 26.7-34.0 [facility] Comment on above: Performed By: #### P OCGLUC #### [facility] [address] [address] [address] Con Santana MCHC (RBC) [Mass/Vol] 32.5 g/dL Normal 29.9-35.2 [facility] Comment on above: Performed By: #### P OCGLUC #### [facility] [address] [place] [address] Dr. Con Santana MCV (RBC) [Entitic vol] 96.2 fL Normal 81.0-99.0 [facility] Comment on above: Performed By: #### P OCGLUC #### [facility] [address] [address] [address] Con Santana MONO # 0.5 103/ul Normal 0.3-0.8 [facility] Comment on above: Performed By: #### P OCGLUC #### [facility] [address] [address] [address] Con Santana Monocytes/100 WBC (Bld) 7.0 % Normal 1.7-12.0 [facility] Comment on above: Performed By: #### P OCGLUC #### [facility] [address] [place] [address] Dr. Con Santana NEUT # 1.8 103/ul Normal 1.4-6.5 [facility] Comment on above: Performed By: #### P OCGLUC #### [facility] [address] [place] [address] Dr. Con Santana Neutrophils/100 WBC (Bld) 27.6 % Critically low 43.0-75.0 [facility] Comment on above: Performed By: #### P OCGLUC #### [facility] [address] [place] [address] Dr. Con Santana Platelet mean volume (Bld) [Entitic vol] 9.9 fL Normal 9.5-13.5 [facility] Comment on above: Performed By: #### P OCGLUC #### [facility] [address] [place] [address] Dr. Con Santana PLT 286 103/ul Normal 150-450 [facility] Comment on above: Performed By: #### P OCGLUC #### [facility] [address] [place] [address] Dr. Con Santana RBC 4.25 106/ul Normal 4.20-5.40 [facility] Comment on above: Performed By: #### P OCGLUC #### [facility] [address] [place] [address] Dr. Con Santana WBC 6.5 103/ul Normal 4.0-11.0 [facility] Comment on above: Performed By: #### P OCGLUC #### [facility] [address] [place] [address] Dr. Con Santana CULTURE BLOODon 12-20-2022 Microscopic examination of blood, culture Culture Observations: NO GROWTH AT 5 DAYS. Normal [facility] Comment on above: Performed By: #### B LDCX2 #### [facility] [address] [place] [address] Dr. Con Santana Microscopic examination of blood, culture Culture Observations: NO GROWTH AT 5 DAYS. Normal [facility] Comment on above: Performed By: #### C BC #### [facility] [address] [address] [address] Con Santana CULTURE URINEon 12-20-2022 CULTURE URINE Culture Observations : LIGHT GROWTH OF MIXED GENITAL K[place]. NO POTENTIAL PATHOGENS SEEN. Normal [facility] Comment on above: Performed By: #### C BC #### [facility] [address] [place] [address] Dr. Con Santana Covid-19 PCR ([facility]VDTB)on 11-27 SARS-CoV-2 (COVID-19) RNA JEANE+probe Ql (Unsp spec) Not detected Normal NOT DETECTED [facility] Comment on above: Result Comment: When diagnostic [...] for this test is supported by the [place] of Health and Human Service's declaration that [...] used). Performed By: #### C BC #### [facility] [address] [place] [address] Dr. Con Santana ER URINE PROFILEon 03-25-202 3 Bilirubin Ql (U) Negative Normal NEGATIVE [facility] Comment on above: Performed By: #### Anaya JAVIER UMICRO #### [facility] [address] [place] [address] Dr. Con Santana Clarity (U) CLEAR Normal CLEAR [facility] Comment on above: Performed By: #### E YAYA, UMICRO #### [facility] [address] [place] [address] Dr. Con Santana Color (U) LT. YELLOW Normal YELLOW [facility] Comment on above: Performed By: #### E YAYA UMICRO #### [facility] [address] [place] [address] Dr. Con KNIGHT A micrscopic examination will be performed if indicated. Normal [facility] Comment on above: Performed By: #### E YAYA UMICRO #### [facility] [address] [place] [address] Dr. Con Santana Glucose Ql (U) Negative Normal NEGATIVE [facility] Comment on above: Performed By: #### Anaya JAVIER UMICRO #### [facility] [address] [place] [address] Dr. Con Santana Hemoglobin Ql (U) TRACE-INTACT Abnormal NEGATIVE [facility] Comment on above: Performed By: #### Anaya JAVIER UMICRO #### [facility] [address] [place] [address] Dr. Con Santana Ketones Ql (U) TRACE Abnormal NEGATIVE [facility] Comment on above: Performed By: #### Anaya JAVIER UMICRO #### [facility] [address] [place] [address] Dr. Con Santana LEUKOCYTES MODERATE Abnormal NEGATIVE [facility] Comment on above: Performed By: #### Anaya JAVIER UMICRO #### [facility] [address] [place] [address] Dr. Con Santana Nitrite Ql (U) Positive Abnormal NEGATIVE [facility] Comment on above: Performed By: #### Anaya JAVIER UMICRO #### [facility] [address] [place] [address] Dr. Con Santana pH (U) 7.0 [pH] Normal 5-9 [facility] Comment on above: Performed By: #### LISA INTERIANO #### [facility] [address] [place] [address] Dr. Con Santana SPEC GRAVITY 1.010 Normal 1.005-<=1.025 [facility] Comment on above: Performed By: #### LISA INTERIANO #### [facility] [address] [place] [address] Dr. Con Santana UA PROTEIN TRACE Normal NEGATIVE/ TRACE [facility] Comment on above: Performed By: #### LISA INTERIANO #### [facility] [address] [place] [address] Dr. Con Santana UR MICRO IND INDICATED Normal [facility] Comment on above: Performed By: #### LISA INTERIANO #### [facility] [address] [place] [address] Dr. Con Santana Urobilinogen Qn (U) 0.2 {Godfrey'U}/dL Normal 0.2 - 1. 0 [facility] Comment on above: Performed By: #### LISA INTERIANO #### [facility] [address] [place] [address] Dr. Con aSntana INFLUENZA A AND B AGon 12-20 INFLUENZA A AG Negative Normal NEGATIVE SEE COMMENT [facility] Comment on above: Performed By: #### I NFLUAB #### [facility] [address] [place] [address] Dr. Con Santana INFLUENZA B AG Negative Normal NEGATIVE SEE COMMENT [facility] Comment on above: Performed By: #### I NFLUAB #### [facility] [address] [place] [address] Dr. Con Santana LACTATE/LACTIC ACIDon 2022 Lactate [Moles/Vol] 0.6 mmol/L Normal 0.4-2.0 [facility] Comment on above: Performed By: #### P OCGLUC #### [facility] [address] [address] [address] Con Santana POINT OF CARE GLUCOSEon 11-27 Glucose [Mass/Vol] 217 mg/dL Critically high -106 [facility] Comment on above: Performed By: #### I NFLUAB #### [facility] [address] [address] [address] Con Santana Glucose [Mass/Vol] 204 mg/dL Critically high 74-106 [facility] Comment on above: Performed By: #### P OCGLUC #### [facility] [address] [address] [address] Con Santana Glucose [Mass/Vol] 148 mg/dL Critically high -106 [facility] Comment on above: Performed By: #### C BC #### [facility] [address] [place] [address] Dr. Con Santana PROF 14(COMP METB)on 023 Albumin [Mass/Vol] 3.4 g/dL Normal 3.4-5.0 [facility] Comment on above: Performed By: #### H STROPN #### [facility] [address] [address] [address] Con Santana Albumin/Globulin [Mass ratio] 1.1 {ratio} [facility] Comment on above: Performed By: #### H STROPN #### [facility] [address] [place] [address] Dr. Con Santana ALP [Catalytic activity/Vol] 95 U/L Normal 46-116 [facility] Comment on above: Performed By: #### H STROPN #### [facility] [address] [place] [address] Dr. Con Santana ALT [Catalytic activity/Vol] 22 U/L Normal 14-59 [facility] Comment on above: Performed By: #### H STROPN #### [facility] [address] [place] [address] Dr. Con Santana Anion gap [Moles/Vol] 13.1 mmol/L Normal [facility] Comment on above: Performed By: #### H STROPN #### [facility] [address] [address] [address] Con Santana AST [Catalytic activity/Vol] U/L Critically low 15-37 [facility] Comment on above: Performed By: #### H STROPN #### [facility] [address] [address] [address] Con Santana Bilirubin [Mass/Vol] 0.4 mg/dL Normal 0.2-1.0 [facility] Comment on above: Performed By: #### H STROPN #### [facility] [address] [address] [address] Con Santana Calcium [Mass/Vol] 8.5 mg/dL Normal 8.5-10.1 [facility] Comment on above: Performed By: #### H STROPN #### [facility] [address] [address] [address] Con Santana Chloride [Moles/Vol] 107 mmol/L Normal 98-107 [facility] Comment on above: Performed By: #### H STROPN #### [facility] [address] [address] [address] Con Santana CO2 [Moles/Vol] 22.5 mmol/L Normal 21.0-32.0 [facility] Comment on above: Performed By: #### H STROPN #### [facility] [address] [address] [address] Con Santana Creatinine [Mass/Vol] 0.85 mg/dL Normal 0.55-1.02 [facility] Comment on above: Performed By: #### H STROPN #### [facility] [address] [address] [address] Con Santana EGFR-AF COMORAN >60 Normal >=60 [facility] Comment on above: Performed By: #### H STROPN #### [facility] [address] [address] [address] Con Santana EGFR-NON AF COMORAN >60 Normal >=60 [facility] Comment on above: Performed By: #### H STROPN #### [facility] [address] [address] [address] Con Santana Globulin (S) [Mass/Vol] 3.2 g/dL Normal [facility] Comment on above: Performed By: #### H STROPN #### [facility] [address] [address] [address] Con Santana Glucose [Mass/Vol] 131 mg/dL Critically high 74-106 [facility] Comment on above: Performed By: #### H STROPN #### [facility] [address] [address] [address] Con Santana Potassium [Moles/Vol] 3.6 mmol/L Normal 3.5-5.1 [facility] Comment on above: Performed By: #### H STROPN #### [facility] [address] [place] [address] Dr. Con Santana Protein [Mass/Vol] 6.6 g/dL Normal 6.4-8.2 [facility] Comment on above: Performed By: #### H STROPN #### [facility] [address] [place] [address] Dr. Con Santana Sodium [Moles/Vol] 139 mmol/L Normal 136-145 [facility] Comment on above: Performed By: #### H STROPN #### [facility] [address] [place] [address] Dr. Con Santana Urea nitrogen [Mass/Vol] 15.0 mg/dL Normal 7.0-18.0 [facility] Comment on above: Performed By: #### H STROPN #### [facility] [address] [place] [address] Dr. Con Santana Urea nitrogen/Creatinine [Mass ratio] 17.6 mg/mg Normal [facility] Comment on above: Performed By: #### H STROPN #### [facility] [address] [place] [address] Dr. Con Santana PROTIMEon 12-20-2022 INR Coag (PPP) [Relative time] 1.08 {INR} Normal [facility] Comment on above: Performed By: #### H STROPN #### [facility] [address] [place] [address] Dr. Con Santana INR GUIDELINES SEE BELOW Normal [facility] Comment on above: Result Comment: CANDELARIA RED INR: 2.0 - 3.0 CONDITIONS NOT LISTED BELOW 2.5 - 3.5 FOR PROSTHETIC HEART VALVE REPLACEMENT 2.5 - 3.5 RECURRENT THROMBOSIS Performed By: #### H STROPN #### [facility] [address] [place] [address] Dr. Con Santana PT Coag (PPP) [Time] 11.4 s Normal 9.0-11.6 [facility] Comment on above: Performed By: #### H STROPN #### [facility] [address] [place] [address] Dr. Con Santana PTTon 12-20-2022 aPTT Coag (Bld) [Time] 30.8 s Normal 22.3-36.2 [facility] Comment on above: Performed By: #### H STROPN #### [facility] [address] [place] [address] Dr. Con Santana URINE MICROSCOPIC ONLYon BACTERIA MODERATE Abnormal NONE SEEN [facility] Comment on above: Performed By: #### Anaya JAVIER UMICRO #### [facility] [address] [place] [address] Dr. Con Santana Bacteria identified Cx Nom (U) INDICATED Normal [facility] Comment on above: Performed By: #### Anaya JAVIER, UMICRO #### [facility] [address] [place] [address] Dr. Con Santana CAST NONE SEEN Normal NONE SEEN [facility] Comment on above: Performed By: #### Anaya JAVIER, UMICRO #### [facility] [address] [place] [address] Dr. Con Santana Crystals LM Nom (Urine sed) NONE SEEN Normal NONE SEEN [facility] Comment on above: Performed By: #### E RUR, UMICRO #### [facility] [address] [place] [address] Dr. Con Santana Epithelial cells LM Ql (Urine sed) FEW Abnormal NONE SEEN /RARE [facility] Comment on above: Performed By: #### E RUR, UMICRO #### [facility] [address] [address] [address] Con Santana MUCOUS NONE SEEN Normal NONE SEEN [facility] Comment on above: Performed By: #### E RUR, UMICRO #### [facility] [address] [address] [address] Con Santana RBC 2-5 Abnormal 0-2 [facility] Comment on above: Performed By: #### E RUR, UMICRO #### [facility] [address] [address] [address] Con Santana WBC 20-50 Abnormal NONE SEEN [facility] Comment on above: Performed By: #### E TABR, UMICRO #### [facility] [address] [address] [address] Con Santana XR CHEST 1 Von [...] ELEAZAR GUERRA Date: 2022-12-20 05:55 Normal [facility] XR DEXA BONE DENSITYon 07-10 XR DEXA BONE DENSITY DEXA Bone Density Study CLINICAL: Evaluate bone mineral density. Postmenopausal COMPARISON: None FINDINGS: The bone density study was assessed by dual-energy x-ray absorptiometry with the [employer] scanner. The test results are expressed in [...] MATI ATKINS Date: 2022-07-10 16:49 Normal [facility] BNPon 02-14-2022 Natriuretic peptide B (Bld) [Mass/Vol] 1479.0 pg/mL Normal <=1,800.0 [facility] Comment on above: Performed By: #### E TABLISA Gr #### [facility] [address] [address] [address] Con Santana CBC AUTO DIFFon 02-14-2022 BASO # 0.1 103/ul Normal 0.0-0.1 [facility] Comment on above: Performed By: #### C BC #### [facility] [address] [place] [address] Dr. Con Santana Basophils/100 WBC (Bld) 0.9 % Normal 0.2-2.0 [facility] Comment on above: Performed By: #### C BC #### [facility] [address] [place] [address] Dr. Con Santana EO # 1.0 103/ul Critically high 0.0-0.7 [facility] Comment on above: Performed By: #### C BC #### [facility] [address] [place] [address] Dr. Con Santana Eosinophils/100 WBC (Bld) 16.2 % Critically high 0.9-7.0 [facility] Comment on above: Performed By: #### C BC #### [facility] [address] [place] [address] Dr. Con Santana Erythrocyte distribution width (RBC) [Ratio] 12.7 % Normal 11.0-15.0 [facility] Comment on above: Performed By: #### C BC #### [facility] [address] [place] [address] Dr. Con Santana Hematocrit (Bld) [Volume fraction] 39.6 % Normal 36.0-48.0 [facility] Comment on above: Performed By: #### C BC #### [facility] [address] [place] [address] Dr. Con Santana Hemoglobin (Bld) [Mass/Vol] 12.9 g/dL Normal 12.0-16.0 [facility] Comment on above: Performed By: #### C BC #### [facility] [address] [place] [address] Dr. Con Santana IG # 0.02 10e3/ul Normal 0.00-0.03 [facility] Comment on above: Performed By: #### C BC #### [facility] [address] [place] [address] Dr. Con Santana IG % 0.3 % Normal 0.0-0.5 [facility] Comment on above: Performed By: #### C BC #### [facility] [address] [place] [address] Dr. Con Santana LYMPH # 2.6 103/ul Normal 1.2-3.8 [facility] Comment on above: Performed By: #### C BC #### [facility] [address] [place] [address] Dr. Con Santana Lymphocytes/100 WBC (Bld) 40.2 % Normal 20.5-60.0 [facility] Comment on above: Performed By: #### C BC #### [facility] [address] [place] [address] Dr. Con Santana MANUAL DIFF REQ NO Normal [facility] Comment on above: Performed By: #### C BC #### [facility] [address] [place] [address] Dr. Con Santana MCH (RBC) [Entitic mass] 31.5 pg Normal 26.7-34.0 [facility] Comment on above: Performed By: #### C BC #### [facility] [address] [place] [address] Dr. Con Santana MCHC (RBC) [Mass/Vol] 32.6 g/dL Normal 29.9-35.2 [facility] Comment on above: Performed By: #### C BC #### [facility] [address] [place] [address] Dr. Con Santana MCV (RBC) [Entitic vol] 96.6 fL Normal 81.0-99.0 [facility] Comment on above: Performed By: #### C BC #### [facility] [address] [place] [address] Dr. Con Santana MONO # 0.5 103/ul Normal 0.3-0.8 [facility] Comment on above: Performed By: #### C BC #### [facility] [address] [address] [address] Con Santana Monocytes/100 WBC (Bld) 8.4 % Normal 1.7-12.0 [facility] Comment on above: Performed By: #### C BC #### [facility] [address] [address] [address] Con Santana NEUT # 2.2 103/ul Normal 1.4-6.5 [facility] Comment on above: Performed By: #### C BC #### [facility] [address] [address] [address] Con Santana Neutrophils/100 WBC (Bld) 34.0 % Critically low 43.0-75.0 [facility] Comment on above: Performed By: #### C BC #### [facility] [address] [place] [address] Dr. Con Santana Platelet mean volume (Bld) [Entitic vol] 9.8 fL Normal 9.5-13.5 [facility] Comment on above: Performed By: #### C BC #### [facility] [address] [place] [address] Dr. Con Santana PLT 270 103/ul Normal 150-450 [facility] Comment on above: Performed By: #### C BC #### [facility] [address] [place] [address] Dr. Con Santana RBC 4.10 106/ul Critically low 4.20-5.40 [facility] Comment on above: Performed By: #### C BC #### [facility] [address] [place] [address] Dr. Con Santana WBC 6.3 103/ul Normal 4.0-11.0 [facility] Comment on above: Performed By: #### C BC #### [facility] [address] [place] [address] Dr. Con Santana Covid-19 PCR ([facility])on 01-27 SARS-CoV-2 (COVID-19) RNA JEANE+probe Ql (Unsp spec) Not detected Normal NOT DETECTED [facility] Comment on above: Result Comment: When diagnostic [...] for this test is supported by the [employer] of [employer] and Human Service's declaration that [...] used). Performed By: #### C BC #### [facility] [address] [place] [address] Dr. Con Santana INFLUENZA A AND B AGon 02[facility] BEL[facility] Normal [facility] Comment on above: Result Comment: Nega tive for Flu A protein angiten. Infection due to Flu A cannot be ruled out. Flu A angiten in the sample may be below the detection limit of the test. Performed By: #### C BC #### [facility] [address] [place] [address] Dr. Con Santana INFLUBNEG SEE BELOW Normal [facility] Comment on above: Result Comment: Nega tive for Flu B protein antigen. Infection due to Flu B cannot be ruled out. Flu B antigen in the sample may be below the detection limit of the test. Performed By: #### C BC #### [facility] [address] [place] [address] Dr. Con Santana INFLUENZA A AG Negative Normal NEGATIVE SEE COMMENT [facility] Comment on above: Performed By: #### C BC #### [facility] [address] [place] [address] Dr. Con Santana INFLUENZA B AG Negative Normal NEGATIVE SEE COMMENT [facility] Comment on above: Performed By: #### C BC #### [facility] [address] [address] [address] Con Santana INTERNAL CONTROLS Within Normal Limits Normal Wi thin Normal Limits [facility] Comment on above: Performed By: #### C BC #### [facility] [address] [address] [address] Con Santana PROF 14(COMP METB)on 022 Albumin [Mass/Vol] 3.1 g/dL Critically low 3.4-5.[address] [facility] Comment on above: Performed By: #### H STROPN #### [facility] [address] [address] [address] Con Santana Albumin/Globulin [Mass ratio] 1.0 {ratio} Normal [facility] Comment on above: Performed By: #### H STROPN #### [facility] [address] [place] [address] Dr. Con Santana ALP [Catalytic activity/Vol] 88 U/L Normal 46-116 [facility] Comment on above: Performed By: #### H STROPN #### [facility] [address] [address] [address] Con Santana ALT [Catalytic activity/Vol] 26 U/L Normal 14-59 [facility] Comment on above: Performed By: #### H STROPN #### [facility] [address] [place] [address] Dr. Con Santana Anion gap [Moles/Vol] 11.2 mmol/L Normal [facility] Comment on above: Performed By: #### H STROPN #### [facility] [address] [address] [address] Con Santana AST [Catalytic activity/Vol] 24 U/L Normal 15-37 [facility] Comment on above: Performed By: #### H STROPN #### [facility] [address] [address] [address] Con Santana Bilirubin [Mass/Vol] 0.6 mg/dL Normal 0.2-1.0 [facility] Comment on above: Performed By: #### H STROPN #### [facility] [address] [address] [address] Con Santana Calcium [Mass/Vol] 8.4 mg/dL Critically low 8.5-10.[address] [facility] Comment on above: Performed By: #### H STROPN #### [facility] [address] [address] [address] Con Santana Chloride [Moles/Vol] 106 mmol/L Normal 98-107 [facility] Comment on above: Performed By: #### H STROPN #### [facility] [address] [address] [address] Con Santana CO2 [Moles/Vol] 27.0 mmol/L Normal 21.0-32.0 [facility] Comment on above: Performed By: #### H STROPN #### [facility] [address] [place] [address] Dr. Con Santana Creatinine [Mass/Vol] 0.71 mg/dL Normal 0.55-1.02 [facility] Comment on above: Performed By: #### H STROPN #### [facility] [address] [place] [address] Dr. Con Santana EGFR-AF COMORAN >60 Normal >=60 [facility] Comment on above: Performed By: #### H STROPN #### [facility] [address] [place] [address] Dr. Con Santana EGFR-NON AF COMORAN >60 Normal >=60 [facility] Comment on above: Performed By: #### H STROPN #### [facility] [address] [place] [address] Dr. Con Santana Globulin (S) [Mass/Vol] 3.1 g/dL Normal [facility] Comment on above: Performed By: #### H STROPN #### [facility] [address] [address] [address] Con Santana Glucose [Mass/Vol] 104 mg/dL Normal 74-106 [facility] Comment on above: Performed By: #### H STROPN #### [facility] [address] [place] [address] Dr. Con Santana Potassium [Moles/Vol] 3.2 mmol/L Critically low 3.5-5.1 [facility] Comment on above: Performed By: #### H STROPN #### [facility] [address] [address] [address] Con Santana Protein [Mass/Vol] 6.2 g/dL Critically low 6.4-8.[address] [facility] Comment on above: Performed By: #### H STROPN #### [facility] [address] [address] [address] Con Santana Sodium [Moles/Vol] 141 mmol/L Normal 136-145 [facility] Comment on above: Performed By: #### H STROPN #### [facility] [address] [place] [address] Dr. Con Santana Urea nitrogen [Mass/Vol] 13.0 mg/dL Normal 7.0-18.0 [facility] Comment on above: Performed By: #### H STROPN #### [facility] [address] [place] [address] Dr. Con Santana Urea nitrogen/Creatinine [Mass ratio] 18.3 mg/mg Normal [facility] Comment on above: Performed By: #### H STROPN #### [facility] [address] [place] [address] Dr. Con Santana TROPONIN, HIGH SENSITIVITYon 02-14-2022 HSTROP 20.9 pg/mL Normal 4.0-51.3 [facility] Comment on above: Result Comment: CUT- OFF POINTS HAVE BEEN ESTABLISHED BASED ON THE FOURTH UNIVERSAL DEFINITIONS OF MYOCARDIAL INFARCTION. THE UPPER REFERENCE LIMIT (URL) OF TROPONIN, DEFINED THE 99TH PERCENTILE OF cTnI DISTRIBUTION IN A REFERENCE POPULATION, HAS BEEN CONFIRMED THE DECISION THRESHOLD FOR RI DIAGNOSIS. Performed By: #### E LISA JAVIER #### [facility] [address] [place] [address] Dr. Con Santana XR CHEST 1 Von [...] by: KAROL VARELA Date: 2022-02-14 09:36 Normal [facility] XR chest 2V*on 01-15-2019 XR chest 2V* [facility] [place] [address] [place] [address] XRay Report Signed Patient: Salome Dominguez MR#: [id number] : 1940 Acct:[id number] Age/Sex: 78 / F ADM Date: 01/15/19 Loc: XDUCLY Room: Type: [facility] Attending Dr: Jack JAMES Ordering Provider: Jack [...] Maximiliano Campos M.D.01/15/2019 11:38 AM Dictation Location: [facility] Transcribed By: [facility] 01/15/19 1138 Dictated By: Maximiliano Campos II, MD 01/15/19 1137 Signed By: 01/15/19 1138 [facility] XR SHOULDER RIGHT TRAUMA SER IESon 08-21-2017 XR SHOULDER RIGHT TRAUMA SERIES 08/21/2017 5:37 PMXR SHOULDER RIGHT TRAUMA SERIESINDICATION: Fall.COMPARISON: None availableFINDINGS: 2 views the right shoulder. Comminuted fracture of the humerus involving the greater tuberosity and surgical neck. Humeral head remains articulate with the glenoid.IMPRESSION: Proximal humerus fracture.Workstation ID:[id number]; right arm injury. Best images possible. Normal [facility] Vital Signs Date Time Vital Sign Value Performing Clinician Facility 10-12-2023 11:00-0500 Body height 158.75 cm Effie Jackman Other [facility] Other 10-12-2023 11:00-0500 Body mass index (BMI) [Ratio] 18.18 kg/m2 Effie Jackman Other [facility] Other 10-12-2023 11:00-0500 Body weight 45.81 kg Effie Jackman Other [facility] Other 10-12-2023 11:00-0500 Diastolic blood pressure 64 mm[Hg] Effie Jackman Other [facility] Other 10-12-2023 11:00-0500 SaO2% (BldA) [Mass fraction] 97 % Effie Jackman Other [facility] Other 10-12-2023 11:00-0500 Systolic blood pressure 118 mm[Hg] Effie Jackman Other [facility] Other Encounters Encounter Date Encounter Type Care Provider Facility Start: 05-19-2024 ambulatory [facility] [facility] Start: 04-11-2024 End: 04-11-2024 ambulatory [facility] Start: 04-05-2024 Evaluation and management of inpatient [facility] Start: 04-04-2024 Evaluation and management of inpatient [facility] Start: 04-04-2024 Evaluation and management of inpatient CAMILLE CONCEPCION [facility] Start: 04-01-2024 Emergency department patient visit FELICIA MEDINA [facility] Start: 04-01-2024 End: 04-05-2024 Evaluation and management of inpatient MIREYA TOLENTINO [facility] Start: 04-01-2024 End: 04-01-2024 ambulatory PADMINI BILLINGS [facility] Start: 03-30-2024 End: 03-30-2024 ambulatory MICHAELA RICHARDSON Not Available Start: 03-22-2024 End: 03-22-2024 ambulatory JUANA MCDANIELS Not Available Start: 03-16-2024 End: 03-17-2024 ambulatory MICHAELA RICHARDSON Not Available Start: 12-31-2023 End: 12-31-2023 ambulatory MICHAELA H RICHARDSON Not Available Start: 11-18-2023 End: 11-18-2023 ambulatory MICHAELA RICHARDSON Not Available Start: 10-27-2023 End: 10-27-2023 ambulatory Effie Jackman Other [facility] Other Start: 10-27-2023 Telephone encounter Effie Jackman [facility] Start: 10-16-2023 End: 10-16-2023 ambulatory Effie Jackman Other [facility] Other Start: 10-16-2023 Telephone encounter Effie Jackman [facility] Start: 10-15-2023 End: 10-15-2023 ambulatory Effie Jackman Other [facility] Other Start: 10-15-2023 Telephone encounter Effie Jackman [facility] Start: 10-12-2023 Office outpatient visit 25 minutes Effie Jackman [facility] Start: 10-12-2023 Telephone encounter Effie Jackman [facility] Start: 10-12-2023 End: 10-12-2023 ambulatory NICHOLAS Joshua [employer] Other Start: 10-01-2023 End: 10-01-2023 ambulatory MICHAELA H RICHARDSON Not Available Start: 08-05-2023 End: 08-05-2023 ambulatory Effie Jackman Other [facility] Other Start: 08-05-2023 Telephone encounter Effie Jackman [facility] Start: 05-14-2023 End: 05-14-2023 ambulatory Effie Jackman Other [facility] Other Start: 05-14-2023 Telephone encounter Effie Jackman [facility] Start: 03-30-2023 End: 03-30-2023 ambulatory Effie Jackman Other [facility] Other Start: 03-30-2023 Telephone encounter Effie Jackman [facility] Start: 03-27-2023 End: 03-27-2023 ambulatory Effie Jackman Other [facility] Other Start: 03-27-2023 Telephone encounter Effie Jackman [facility] Start: 12-29-2022 End: 01-01-2023 Evaluation and management of inpatient DR JANI MORENO Facility:[facility] Start: 12-22-2022 End: 12-22-2022 Evaluation and management of inpatient DR JANI MORENO Facility:[facility] Start: 07-10-2022 End: 07-11-[address] JANI MORENO Facility:[facility] Start: 02-14-2022 End: 02-14-[address] JANI MORENO Facility:[facility] Start: 01-15-2019 End: 01-15-2019 Patient encounter procedure Jack Sanches Facility:[facility] Start: 11-20-2017 End: 11-21-2017 Ambulatory DEFAULT PHYSICIAN Facility:[facility] Start: 08-21-2017 End: 08-21-2017 Emergency department patient visit JACK PINA [facility] Start: 05-07-2017 End: 05-08-2017 Ambulatory DANIELLE COFFMAN Facility:[facility] Immunizations Immunization Date Immunization Notes Care Provider Roberta webb 07-03-2023 influenza, high dose seasonal, preservative-free Effie Augustina Other [facility] Other Payers Date Payer Category Payer Unknown [id number] 2017 Self-pay 2014 Unknown [id number] 2003 Medicare [id number] 1959 Unknown [id number] 1938 Unknown [id number] 2.16.84 [id number] 1938 Unknown [id number] 2.16.84 [id number] 1938 Unknown [id number] 2.16.84 [id number] 1938 Unknown [id number] 2.16.84 [id number] 1938 Unknown [id number] 2.16.84 [id number] 1938 Unknown [id number] 2.16.84 0.1.251411.3.579.2.1259 1938 Unknown [id number] 2.16.84 0.1.287731.3.579.2.1259 1938 Unknown [id number] 2.16.84 0.1.537792.3.579.2.1259 1938 Unknown [id number] 2.16.84 0.1.077720.3.579.2.1259 1938 Unknown [id number] 2.16.84 0.1.972854.3.579.2.1259 1938 Unknown [id number] 2.16.840 .[id number] Medicare [id number] Unknown Unknown [id number] 2.16.84 [id number] Social History Date Type Detail Facility Unknown if ever smoked [facility] Other Sex Assigned At Sex Assigned At Bir th [facility] Other Clinical Notes 03-27-2023 to 04-11-2024 Note [...] nurse practitioner on 04/29/2020 Padmini Billings MD, [facility] 04-05-2024 Note Adult Nutrition Asse ssment: [...] subcutaneous, Daily levothyroxine, 75 mcg, oral, Daily czvxje-cjlgkxcz-njleiqs, 1 capsule, oral, TID with meals metoprolol [...] Special Kitchen Request Once Comments: Zay 2 jordanian toast, butter and syrup.turkey sausage, grits with brown sugar and butter, raspberry malagasy,orange juice and coffee, cream and sugar 04/03/24 0826 04/02/24 1302 Special Kitchen Request Once Comments: Zay send hot roast beef sandwich, mashed potatoes and gravy, Chicken noodle soup, Ramos pie,diet cola, cottage cheese 04/02/24 1303 Meal Intakes: no meals recorded Nutrition Risk: High Nutrition Needs: Needs based on: actual body weight Calorie needs: 3888-2963 kcals/day based on Equation: 25-30 kcal/kg MSJ x 1,0=4719 flori Protein needs: 41-49 g/day based on [...] Hand Grasp: Weak L Hand Grasp: Weak (Auto Body Repairer strength not assessed by RD) Treatment Plan: Continue liberalized diet Discussed with pt ways to increase nutrient density Boost+ vanilla or strawberry BID Mvi with iron Vit D level Contact the dietitian via [employer] chat 8A-4P Thursday through Thursday or call extension [phone]. For weekends & holidays, the dietitian can be reached via pager [phone] from 9A-3P. Unable to respond to [employer] messages on Thursday & s. [facility] 04-05-2024 Note Hospital Medicine Discharge Summary [...] placement. Patient underwent implementation of dual-chamber pacemaker, [employer] on 04/04 and did fairly well. [...] 9:40 AM Padmini Billings MD [facility] 04/29/2024 1:40 PM Sammie Miles NP [facility] Your medication list START taking these medications Instructions Last Dose Given Next Dose Due doxycycline 100 mg capsule Commonly known as: Vibramycin Take 1 capsule (100 mg) by mouth in the morning and at bedtime for 27 doses. Take with at least 8 ounces (large glass) of water, do not lie down for 30 minutes after HYDROcodone-acetaminophen 5-325 mg tablet Commonly known as: Streeter Take 1 tablet by mouth every 6 [...] Creon 3,000-9,500- 15,000 unit capsule Generic drug: baienv-qyebsjun-rackyjt levothyroxine 75 mcg tablet Commonly known as: Synthroid, Levoxyl Vitamin B-12 1,000 mcg tablet Generic drug: cyanocobalamin Where to Get Your Medications These medications were sent to [facility]/pharmacy #[id number] [place], [place] - [address] [address] doxycycline 100 mg capsule metoprolol succinate XL 25 mg 24 hr tablet You can get these medications from any pharmacy Bring a paper prescription for each of these medications HYDROcodone-acetaminophen 5-325 mg tablet Salome is allergic to psyllium. Disposition: Home-Health Care [facility] (06) Discharge Condition: Stable [...] was 60 minutes. Signed Mireya Tolentino MD [facility] 04/05/2024 12:16 PM [facility] 04-05-2024 Note Occupational Therapy Occupational Therapy [...] at home . Implantation of dual chamber PPM([employer]): submuscular implant 04/04/24 General Subjective: friendly [...] function) General Assessment General Assessment Hearing: (mild [place]) Hand Dominance: Right Home Living Home Living Type of Home: Senior apartment ([facility] living) Lives With: Spouse Home Adaptive Equipment: Walker rolling, Cane (sc, gb, hhs) Home Layout: One level Home Access: Level entry Bathroom Shower/Tub: Walk-in shower Prior Level of Function Prior Function Level of [place]: Independent with ADLs and functional transfers, Independent [...] S[employer] (more content not included)... [facility] 04-05-2024 Note UTP CARDIOLOGY INPAT IENT [...] subcutaneous, Daily levothyroxine, 75 mcg, oral, Daily vxcibq-ecrmduyw-didyocs, 1 capsule, oral, TID with meals olopatadine, [...] hyperinflation. Normal cardiomediastinal (more content not included)... [facility] 04-04-2024 Note DUAL CHAMBER PACEMAK ER IMPLANT PROCEDURE NOTE DATE OF PROCEDURE: 04/04/2024 PERFORMING PHYSICIAN: Dr. Issa Richards TRIMMER MACHINE OPERATOR: MIKE CONSENT: Patient LOCATION: Director Of Email Marketing PROCEDURE PERFORMED: 1. Implantation of dual chamber PPM([employer]): submuscular implant. 2. U/S venous access [...] presented to ER per recommendation of her client services assistant because of bradycardia. Patient's daughter reports that [...] occasions using seldinger technique using a 5 Nepali micropunture needle and exchanged for 0.034 wire. I decided to proceed with opening of the pocket. Localinfiltration of 1% Lidocaine was performed and an incision was created in the left upper chest. Dissection was then performed using cautery down. An active fixation [employer] pacing lead was then delivered via SPCC1 His sheath through the 9F sheath to the right ventricle. After confirmation of lead position on orthogonal views (CHIRINOS and HAITIAN) to confirm position in the septal aspect, [...] three 0- Silk sutures. An active fixation [employer] RA pacing lead was then delivered through the 6Fsheath to the right atrial appendage. After confirmation of lead position on orthogonal views (CHIRINOS and HAITIAN) to confirm position in the appendage, the screw was activated. After confirmation of good sensing parameters, injury pattern and pacing thresholds, 10V pacing was done and no diaphragmatic stimulation was noted. It was then secured in the pocket using three 1-0 Silk sutures. At this stage, given the good thresholds, the backup His lead was removed. The leads were then attached to a [employer] PPM device and the leads tug [...] x 2 weeks Issa Richards Cardiac Electrophysiology [facility] 04-04-2024 Note Patient: Salome Stewart Procedure Information Date/Time: 04/04/24 4057 Procedure: Implant PPM Location: [facility] HEAD OF MARKETING 1 / [facility] (Cath) Providers: Issa Richards MD Clinical information reviewed: Tobacco Allergies Problems Med Hx Surg Hx OB Status Fam Hx Physical Exam Airway Mallampati: II TM distance: >3 FB Neck ROM: full Cardiovascular Dental Pulmonary Abdominal Anesthesia Plan ASA 2 CSE Anesthetic plan and risks discussed with patient. Use of blood products discussed with patient who. Additional Equipment Requests [facility] 04-04-2024 Note H&P reviewed. The lelia [...] have agreed to proceed with the procedure. [facility] 04-04-2024 Note Hospital Medicine Daily Progress Note - 04/04/2024 9:43 AM; Room: [facility]313- Admission: 04/01/2024 5:28 PM; Length of stay: 3 days THE HOSPITALIST TEAM PREFERS TO USE [employer] CHAT FOR COMMUNICATION 7AM-7PM. IF I DO NOT RESPOND WITHIN 15 MINUTES, PLEASE PAGE ME/CALL THROUGH THE RAILROAD CAR CHECKER. FROM 7PM-7AM, PLEASE PAGE [phone](COVR) Code Status: Full Code Barriers to Discharge: [...] dyspnea, orthopnea, pre-syncope, syncope). EKG taken at [facility] on 02/10 showed first degree AV block [...] 11:30 PM 04/04/2024 8:00 AM Site Assessment Red;[place] VTE Prophylaxis: Lovenox Scheduled Meds ceFAZolin (Ancef) 1,000 mg, gentamicin (Garamycin) 80 mg in sodium chloride irrigation solution 0.9 % 500 mL IRRIGATION, , irrigation, Once ceFAZolin, 2 g, intravenous, Once enoxaparin, 40 mg, subcutaneous, Daily levothyroxine, 75 mcg, oral, Daily nabais-vrhjfjno-knkbxsy, 1 capsule, oral, TID with meals olopatadine, [...] mg/dL 19 CREATI (more content not included)... [facility] 04-04-2024 Note -- Attestation signed by [...] Richards MD, 30 mL at 04/04/24 1328 qukpsz-bmgavkor-ugfziit (Creon) 3,000-9,500- 15,000 unit per capsule 1 [...] Mirian Pelaez MD PGY3 Internal Medicine [facility] 04-03-2024 Note Hospital Medicine Daily Progress Note - 04/03/2024 12:05 PM; Room: [address] [place] [address] Admission: 04/01/2024 5:28 PM; Length of stay: 2 days THE HOSPITALIST TEAM PREFERS TO USE [employer] CHAT FOR COMMUNICATION 7AM-7PM. IF I DO NOT RESPOND WITHIN 15 MINUTES, PLEASE PAGE ME/CALL THROUGH THE RAILROAD CAR CHECKER. FROM 7PM-7AM, PLEASE PAGE [phone](COVR) Code Status: Full Code Barriers to Discharge: [...] 11:30 PM 04/03/2024 8:00 AM Site Assessment Red;[place] Red;[place] VTE Prophylaxis: Lovenox Scheduled Meds enoxaparin, 40 mg, subcutaneous, Daily levothyroxine, 75 mcg, oral, Daily lacopa-xyvsdqlt-ywsxowm, 1 capsule, oral, TID with meals pantoprazole, [...] FREET4 0.77 04/01/2024 No results found for: [id number] , IRON , TIBC , C3 , [...] Tolentino MD Hospital Medicine 04/03/2024 12:05 PM [facility] 04-03-2024 Note -- Attestation signed by [...] QT Interval 532 QTC CALCULATION(BAZETT) 411 P [place] 82 R-Garryowen -60 T Wave [place] 71 Impression Sinus rhythm with complete heart [...] Cardiology will follow along Orlando Valdez MD Beverage Steward PGY-4 [facility] 04-02-2024 Note Hospital Medicine Daily Progress Note - 04/02/2024 11:29 AM; Room: 3133/3133-01 Admission: 04/01/2024 5:28 PM; Length of stay: 1 days THE HOSPITALIST TEAM PREFERS TO USE [employer] CHAT FOR COMMUNICATION 7AM-7PM. IF I DO NOT RESPOND WITHIN 15 MINUTES, PLEASE PAGE ME/CALL THROUGH THE RAILROAD CAR CHECKER. FROM 7PM-7AM, PLEASE PAGE [phone](COVR) Code Status: Full Code Barriers to Discharge: [...] 11:30 PM 04/02/2024 9:00 AM Site Assessment Red;[place] Red;[place] VTE Prophylaxis: Lovenox Scheduled Meds [START ON [...] FREET4 0.77 04/01/2024 No results found for: [id number] , IRON , TIBC , C3 , [...] Tolentino MD Hospital Medicine 04/02/2024 11:29 AM [facility] 04-01-2024 Note Hospital Medicine History and Physical 04/01/2024 11:08 PM THE HOSPITALIST TEAM PREFERS TO USE [employer] FOR COMMUNICATION 7AM-7PM. IF I DO NOT RESPOND WITHIN 15 MINUTES, PLEASE PAGE ME/CALL THROUGH THE RAILROAD CAR CHECKER. FROM 7PM-7AM, PLEASE PAGE [phone](COVR) Chief Complaint Chief Complaint Patient presents with Bradycardia Pt sent by [facility] for bradycardia. Pt c/o occasional SOB but denies being symptomatic otherwise. History of Present Illness Salome Dominguez is an 83 y.o. female who came from home with past medical history of hypothyroidism, anemia, COPD, aortic valve stenosis, asthma and dementia presented to ER per recommendation of her client services assistant that the patient saw today because of [...] Date Noted Bradycardia 04/01/2024 Complete heart block ([facility]/HCC) 04/01/2024 Murmur, heart 04/01/2024 SERRANO (dyspnea on exertion) 04/01/2024 Third degree heart block ([facility]/HCC) 04/01/2024 Dementia ([facility]) 03/15/2024 Hypothyroidism 03/15/2024 Long-term use of high-risk medication 03/15/2024 Lesion of skin of scalp 07/01/2023 Sensorineural hearing loss, bilateral 07/01/2023 Acute combined systolic and diastolic heart failure (CMS/HCC) 06/30/2023 Chronic fatigue, unspecified 06/30/2023 Diabetes mellitus ([facility]/HCC) 06/30/2023 Essential (primary) hypertension 06/30/2023 Age related osteoporosis 06/08/2023 Anxiety disorder, unspecified 06/08/2023 Asymptomatic varicose veins 06/08/2023 Ataxic gait 06/08/2023 Biliary cirrhosis ([facility]/HCC) 06/08/2023 Bladder atonia 06/08/2023 Cardiomegaly 06/08/2023 Chronic [...] Moderate episode of recurrent major depressive disorder ([facility]/HCC) 06/08/2023 Moderate persistent asthma without complication 06/08/2023 Myositis 06/08/2023 Nonrheumatic aortic valve stenosis 06/08/2023 Osteoarthritis of lumbar spine 06/08/2023 Other congenital valgus deformity of feet 06/08/2023 Other seborrheic keratosis 06/08/2023 Paroxysmal atrial fibrillation (CMS/HCC) 06/08/2023 Pure hypercholesterolemia 06/08/2023 Restless legs syndrome 06/08/2023 Transient cerebral ischemia 06/08/2023 Chronic obstructive pulmonary disease with (acute) exacerbation ([facility]) 03/12/2023 Osteoarthrosis, hand 10/15/2009 Bacterial overgrowth syndrome 05/17/2009 Abdominal pain, lef (more content not included)... [facility] 04-01-2024 Note 04/01/242033 Financial Resource Strain [...] have you lived? 1 (Lives at [facility] w/ ) In the last 12 months, was there a time when you did not have a steady place to sleep or slept in a prison (including now)? N Transportation Needs In the [...] than 3 How often do you attend islam or judaism services? Never Do you belong to any clubs or organizations such as islam groups, unions, fraternal or athletic groups, or [...] has the electric, gas, oil, or water [employer] threatened to shut off services in your home? 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 Referral Reason Psychosocial assessment Patient Information Primary Caregiver Private caregiver Accompanied by/Relationship Daughter Alexia, elke Brown Activities of Daily Living Assistive Device Walker (uses sometimes) Living Arrangement (Current/Prior to Hospitalization) Private residence ([facility] independent living w/ ) Ambulation Minimum assistance (uses walker sometimes) Dressing Independent Feeding Independent Behavior Oriented (A&Ox4) Communication Can write;Talks;Understands speaking;Understands Mongolian;Reads Income Information Income Source Unemployed (Retired) Discharge Planning Support Systems Spouse/significant other;Children ( Kevin; six daughters (Alexia, Kait, Donita, Jasmin, Doris, Savana); son Karol) Type of Residence Private residence;Home care staff Will patient need Precert for Post Acute needs? No Patient's goal for discharge Return to [facility] with continued VENDING MACHINE COIN COLLECTOR Does the patient need discharge transport arranged? No Completed social work assessment and SDoH screening. Patient was A&Ox4 at this time. Patient's , Kevin, and daughter, Alexia, were currently present at bedside. Patient reported that she lives at [facility] with her . Patient identified her support system as her (Kevin), her six daughters (Alexia, Kait, Donita, Jasmin, Doris, and Savana), and her son (Karol). Patient endorsed that she is moderately socially active. Patient reported that she needs assistance with bathing, which is provided by one of her daughters or by her VENDING MACHINE COIN COLLECTOR who visits 2x/week. Patient reported that she [...] any alcohol consumption or recreational drug use. [facility] 04-01-2024 Note [facility] Note Reason for cardiology [...] mood, affect, and judgement. Labs: 12/23/2023 at [facility] TSH 9.379., White blood count 4.6, hemoglobin [...] block, left a (more content not included)... [facility] 10-16-2023 Evaluation note Encounter Date Diagnosis Assessment Notes Sep, Hypokalemia (ICD-10 - E87.6) [facility] Other 01-18-2024 Evaluation note* Encounter Date Diagnosis Assessment Notes Treatment Notes Treatment Clinical Notes Sep, Other symptoms and signs involving appearance and behavior (ICD-10 - R46.89) [facility] Other 01-15-2024 Evaluation note* Encounter Date Diagnosis [...] Pt reinforced to take med as prescribed. [facility] Other 11-08-2023 Evaluation note* Encounter Date Diagnosis Assessment Notes Treatment Notes Treatment Clinical Notes Jul, Restless leg syndrome (ICD-10 - G25.81) [facility] Other 08-17-2023 Evaluation note* Encounter Date Diagnosis Assessment Notes Treatment Notes Treatment Clinical Notes Apr, Chronic diarrhea (ICD-10 - K52.9) [facility] Other 06-30-2023 Evaluation note* Encounter Date Diagnosis Assessment Notes Treatment Notes Treatment Clinical Notes Feb, Moderate persistent asthma without complication (ICD-10 - J45.40) [facility] Other Evaluation noteNo InformationNort [employer] Other History general Narrative - Reported* Type Description Date Medical History Atrial fibrillation Medical History asthma Medical History arthritia Medical History insomnia Surgical History cholecystectomy Surgical History hysterectomy Surgical History appendectomy Surgical History bowel surgery Surgical History surgery on L fourth toe 08/2016 Hospitalization History pneumonia [facility] Other History general Narrative - Reported* Type Description Date Medical History Atrial fibrillation Medical History asthma Medical History arthritia Medical History insomnia Medical History Bladder stimulator Surgical History cholecystectomy Surgical History hysterectomy Surgical History appendectomy Surgical History bowel surgery Surgical History surgery on L fourth toe 08/2016 Hospitalization History pneumonia [facility] Other Summary Purpose Family History No Family [...] Directives Records Found Reason for Referral Reason [facility] - Do cuments scanned from family. CT brain pending. Behavioral and safety concerns. Notes from family scanned into chart Diagnosis 1 Other symptoms and s igns involving cognitive functions and awareness (R41.89) Referral Organization [facility] sophie Referring Provider First Name Effie Referring Provider Last Name Augustina Referring Provider Specialty Family [facility] Referred Organization [facility] Referred Address [address] [facility] [facility] [place] Referred Provider Specialty Neurology Referral Priority Routine Additional Source Comments INFORMATION SOURCE (unrecogn ized section and content) DATE CREATED AUTHOR 03/19/2018 [facility] DATE CREATED AUTHOR AUTHOR'S ORGANIZ ATION 03/24/2018 [facility] DATE CREATED AUTHOR AUTHOR'S ORGANIZ ATION 04/22/2018 [facility]ital DATE CREATED AUTHOR AUTHOR'S ORGANIZ ATION 01/16/2019 [facility] DATE CREATED AUTHOR AUTHOR'S ORGANIZ ATION 01/03/2023 [facility] p[facility]i DATE CREATED AUTHOR AUTHOR'S ORGANIZ ATION 04/01/2024 [facility] DATE CREATED AUTHOR AUTHOR'S ORGANIZ ATION 04/12/2024 [facility] DATE CREATED AUTHOR AUTHOR'S ORGANIZ ATION [...] BE BASED ON THE PRIMARY CLINICAL RECORDS. [facility]. provides no warranty or guarantee of the accuracy or completeness of information in this document.
[2024-06-27] MEDS: LEVOTHYROXINE SODIUM 75 MCG TABLET PO (05:37)
[2024-06-27 06:41] LABS: Basophils Absolute Auto 0.1 10^3/uL (0.0-0.1); Basophils Percent Auto 1.3 % (0.2-2.0); Eosinophils Absolute Auto 0.4 10^3/uL (0.0-0.7); Eosinophils Percent Auto 8.8 % (0.9-7.0); Hematocrit 30.5 % (36.0-48.0); Immature Granulocytes Abs Auto 0.01 10^3/uL (0.00-0.03); Immature Granulocytes Pct Auto 0.2 % (0.0-0.5); Mean Corpuscular HGB Conc 32.8 g/dL (29.9-35.2); Mean Corpuscular Hemoglobin 29.9 pg (26.7-34.0); Mean Corpuscular Volume 91.3 fL (81.0-99.0); Monocytes Absolute Auto 0.7 10^3/uL (0.3-0.8); Monocytes Percent Auto 14.1 % (1.7-12.0); Neutrophils Absolute Auto 1.6 10^3/uL (1.4-6.5); Neutrophils Percent Auto 33.6 % (43.0-75.0); Platelet Count 176 10^3/uL (150-450); Red Blood Count 3.34 10^6/uL (4.20-5.40); Red Cell Distribution Width 13.2 % (11.0-15.0); White Blood Count 4.7 10^3/uL (4.0-11.0)
[2024-06-27 06:58] LABS: Alanine Aminotransferase 18 U/L (14-59); Albumin Level 2.4 g/dL (3.4-5.0); Alkaline Phosphatase 83 U/L (46-116); Anion Gap 8.2; Aspartate Amino Transferase 29 U/L (15-37); BUN Creatinine Ratio 16.3; Bilirubin Total 0.3 mg/dL (0.2-1.0); Calcium 7.6 mg/dL (8.5-10.1); Carbon Dioxide 24.1 mmol/L (21.0-32.0); Chloride 95 mmol/L (98-107); Estimated GFR (African America >60 (>=60); Estimated GFR (Non-African Ame >60 (>=60); Globulin 2.5 g/dL; Glucose 73 mg/dL (74-106); Magnesium 1.5 mg/dL (1.8-2.4); Potassium 3.3 mmol/L (3.5-5.1); Total Protein 4.9 g/dL (6.4-8.2)
[2024-06-27 07:06] LABS: Sodium 124 mmol/L (136-145)
[2024-06-27 07:21] LABS: Sodium Urine Random 29 mmol/L (30-90)
[2024-06-27 07:59] LABS: Thyroid Stimulating Hormone 2.987 uIU/mL (0.358-3.740)
[2024-06-27] MEDS: 0.9 % SODIUM CHLORIDE 500 ML IV (09:20)
--- NOTE | 2024-06-27 10:14 | CM.NOTE ---
Rounds made with Dr. Schneider, discussed with RN about giving fluid bolus and starting IV fluids. Pt has Ayan PEREZ and will continue services.
--- NOTE | 2024-06-27 10:19 | CM.NOTE ---
Medicare Outpatient Observation Notice discussed with pt, pt verbalizes understanding and signs paper. Original given to pt and copy placed on pt's chart.
[2024-06-27] MEDS: 0.9 % SODIUM CHLORIDE 1,000 ML 100 ML IV ×2 (10:35→20:35)
[2024-06-27 11:49] LABS: Glucometer 88 mg/dL (74-106)
--- NOTE | 2024-06-27 14:20 | SWNOTE1 ---
SW checked previous notes from previous stay and private caregivers were coming in 2x a week for bathing, cleaning, and grocery shopping for patient and .
--- NOTE | 2024-06-27 14:21 | SWNOTE1 ---
JORDI met with pt and in room. Pt and live at [facility] and there plan is for pt to return there at discharge. JORDI did ask if she still had HH and pt voiced yes and she thinks it starts with an E. JORDI to check with [facility]. Pt does have a walker back at [facility]. JORDI did mention rehab at [facility] in case it is recommended, but pt is refusing at this time and wants to return to [facility] with home health. JORDI called [facility] and pt is current with them, since 05/17/24. Pt only has nursing coming in at this time, but PT/OT can be added back on if needed.
[2024-06-27 14:38] LABS: Anion Gap 7.5; BUN Creatinine Ratio 14.3; Calcium 7.6 mg/dL (8.5-10.1); Carbon Dioxide 25.9 mmol/L (21.0-32.0); Chloride 95 mmol/L (98-107); Estimated GFR (African America >60 (>=60); Estimated GFR (Non-African Ame >60 (>=60); Glucose 80 mg/dL (74-106); Potassium 3.4 mmol/L (3.5-5.1); Sodium 125 mmol/L (136-145)
--- NOTE | 2024-06-27 15:35 | SWNOTE1 ---
JORDI met with pt's daughters in room. Juana did voice frustrations that the hospital did not call her to notify her that pt was here. JORDI did explain that SW is not sure the process when pt comes to registration. SW to find out. Pt does have a , but both pt and are in and out of confusion at times. SW to check with Director of MED/Surge to find out the process. Pt's daughter also voiced that the family is in the process of getting them out of [facility]. The plan is for pt and to go live with one of the daughters. The daughter is a nurse. This may take a little time to get arranged as they have to get the home ready. Pt's daughter, Juana, in the room did also ask about palliative care. SW did let her know that SW has several pamphlets with information on palliative care. Juana would like pamphlets. She is not sure how the other sisters will react to this, but wanted resources to help. Plan for this discharge is for pt to return to [facility] and have [facility] come in still, add PT/OT, and continue with private caregivers who come in 3x a week now. JORDI checked to see if Padmini director of floor was in office and she was not there.
--- NOTE | 2024-06-27 16:23 | SWNOTE1 ---
JORDI and Padmini, director of MED/SURGE and ICU, spoke to pt's daughter Juana and let her know that she is the emergency contact and Padmini was going to reach out to Yelena, director of ED, to make sure pt's emergency contacts are being notified and what the process is.
[2024-06-27] MEDS: POTASSIUM CHLORIDE 10 MEQ ER TABLET 40 MEQ PO (16:25)
--- NOTE | 2024-06-27 17:35 | P.HP_ITS ---
HPI H&P: HPI History of Present Illness Chief complaint: Shortness of Breath Narrative: 83 y o female presented to ED one day hx of feeling SOB. She denies cough, fever, wheezing or LE edema. She has no other complaints to offer. However, work up in ED revealed serum sodium of 123. Patient denies nausea/vomiting and poor PO intake and is clinically dry on exam. She was admitted overnight for observation for severe hyponatremia but after failing to initially improve, changed to inpatient. Since sodium has to be slowly corrected by 8-10 mEq in 24 hours, she is anticipated to require inpatient treatment over 2-3 day to ensure her serum sodium is appropriately treated. Patient has hx of HFpEF, very frail and malnourished with BMI of only 16. She is at high risk of volume overload and needs close monitoring while on IVF to ensure she is safely hydrated. Currently she has no active complaints to offer. Opioid HPI Opioid Management Most Recent Pain and Opioid Data: Last Pain Scale 2 05/23/24 09:15 Last Pain Intensity 2 05/23/24 09:15 Last Pain Assessment 06/27/24 17:21 Last ORT Total Score 0 06/27/24 02:11 Last ORT Risk Category Low Risk 06/27/24 02:11 Review of Systems ROS Status of ROS 10 or more systems reviewed and unremark able except as noted in history and below [facility] Medical History (Updated 06/27/24 @ 17:43 by Shaikh Jennie MD) Chronic diastolic (congestive) heart failure ?I50.32 - Chronic diastolic (congestive) heart failure (ICD-10) Primary hypertension ?I10 - Essential (primary) hypertension (ICD-10) Hypothyroidism (acquired) ?E03.9 - Hypothyroidism, unspecified (ICD-10) Abnormal CT scan, gastrointestinal tract ?R93.3 - Abnormal findings on diagnostic imaging of other parts of digestive tract (ICD-10) Ileus ?K56.7 - Ileus, unspecified (ICD-10) Abnormal CT of the abdomen ?R93.5 - Abnormal findings on diagnostic imaging of other abdominal regions, including retroperitoneum (ICD-10) Adult failure to thrive ?R62.7 - Adult failure to thrive (ICD-10) COPD (chronic obstructive pulmonary disease) ?J44.9 - Chronic obstructive pulmonary disease, unspecified (ICD-10) Shortness of breath ?R06.02 - Shortness of breath (ICD-10) Pacemaker ?Z95.0 - Presence of cardiac pacemaker (ICD-10) Asthma ?J45.909 - Unspecified asthma, uncomplicated (ICD-10) Surgical History History of cholecystectomy ?Z90.49 - Acquired absence of other specified parts of digestive tract (ICD- 10) History of hysterectomy ?Z90.710 - Acquired absence of both cervix and uterus (ICD-10) History of appendectomy ?Z90.49 - Acquired absence of other specified parts of digestive tract (ICD- 10) Family History Brother Family history of COPD (chronic obstructive pulmonary disease) Social History Within the past year, how often did you have a drink containing alcohol: monthly or less Within the past year, how many standard drinks containing alcohol did you have on a typical day: 1 or 2 Within the past year, how often did you have six or more drinks on one occasion: never Total score: 0 Score interpretation: A score less than 3 is consistent with normal alcohol consumption. Smoking status: Never smoker Non-prescribed substance use: denies use Previous occupational history: retired Highest level of school completed/degree received: Associate degree: occupational, technical, vocational program Are you now , , , , never or living with a partner: Little interest or pleasure in doing things: not at all Feeling down, depressed, or hopeless: not at all Feel stressed/tense/nervous/anxious/difficulty sleeping: not at all Do you think of yourself as: straight/heterosexual Gender Identity: female Meds Home Medications and Allergies Home Medications ?Medication ?Instructions ?Recorded ?Confirmed ?Type albuterol sulfate 90 mcg/actuation 2 puff inhalation DAILY 02/11/24 06/26/24 History aerosol inhaler levothyroxine 75 mcg tablet 75 mcg PO DAILY 02/11/24 06/26/24 History metoprolol succinate 25 mg 12.5 mg PO DAILY 05/11/24 06/26/24 History tablet,extended release 24 hr albuterol sulfate 2.5 mg/3 mL 2.5 mg (3 mL) inhalation Q6H PRN 05/26/24 06/26/24 Rx (0.083 %) solution for nebulization shortness of breath or wheezing #180 mL albuterol sulfate 2.5 mg/3 mL 2.5 mg (3 mL) inhalation Q6H PRN 05/26/24 06/26/24 Rx (0.083 %) solution for nebulization shortness of breath or wheezing #90 mL nebulizers (Aeroneb Go Nebulizer) #1 ea 05/26/24 06/26/24 Rx cyanocobalamin (vitamin B-12) 1,000 mcg PO .qd 06/27/24 06/27/24 History 1,000 mcg tablet [id number]-[id number]-wczlvhl 1 cap PO TID 06/27/24 06/27/24 History 3,000-9,500-15,000 unit capsule, delayed rel (Creon) Allergies Allergy/AdvReac Type Severity Reaction Status Date / Time psyllium [From Metamucil] Allergy Severe Hives Verified 06/26/24 21:56 Exam Constitutional Vital Signs, click to edit/add: Last Vital Signs Temp 98.1 F 06/27/24 17:21 Pulse 94 H 06/27/24 17:21 Resp 18 06/27/24 17:21 BP 109/64 06/27/24 17:21 Pulse Ox 94 L 06/27/24 17:21 O2 Del Method Room Air 06/27/24 17:21 Common normals: no apparent distress General appearance: cooperative, comfortable, ill appearing and frail appearing Nutritional appearance: cachectic Respiratory Common normals: normal respiratory effort, no use of accessory muscles and clear to auscultation bilaterally Effort & inspection: able to speak in complete sentences Cardio Common normals: no JVD, regular rate, regular rhythm, S1 normal heart sound and S2 normal heart sound GI Common normals: Normal to inspection, nondistended, normoactive bowel sounds present, soft to palpation, non-tender and no hepatosplenomegaly Extremity Common normals: normal to inspection and full ROM Neuro Common normals: oriented x3, moves all extremities and no focal motor deficits Psych Common normals: mental status grossly normal, thought process normal, denies homicidal ideation and denies suicidal ideation Results Labs Labs: Short CBC 09/29/24 09/30/24 Range/Units 22:40 06:14 WBC 4.6 4.7 (4.0-11.0) 10^3/uL Hgb 10.3 L 10.0 L (12.0-16.0) g/dL Hct 31.0 L 30.5 L (36.0-48.0) % Plt Count 196 176 (150-450) 10^3/uL BMP 06/26/24 06/27/24 06/27/24 22:40 06:14 14:00 Sodium 123 L* 124 L* 125 L Potassium 3.7 3.3 L 3.4 L Chloride 92 L 95 L 95 L Carbon Dioxide 25.5 24.1 25.9 BUN 7.0 8.0 8.0 Creatinine 0.66 0.49 L 0.56 Glucose 90 73 L 80 Calcium 8.1 L 7.6 L 7.6 L Liver Function 06/27/24 Range/Units 06:14 Total Bilirubin 0.3 (0.2-1.0) mg/dL AST 29 (15-37) U/L ALT 18 (14-59) U/L Alkaline Phosphatase 83 (46-116) U/L Albumin 2.4 L (3.4-5.0) g/dL Assessment and Plan Assessment and Plan (1) Acute hyponatremia: Assessment and Plan: Severe hyponatremia, likely hypovolemic hyponatremia as urine sodium less than 30.Urine osm is pending. Gentle IVF hydration. Close monitoring of serum sodium. Goal -8-10 mEq in 24 hours (2) Chronic diastolic (congestive) heart failure: Assessment and Plan: Appears dry and dehydrated. Gentle IV hydration. Monitor volume status closely. (3) COPD (chronic obstructive pulmonary disease): Assessment and Plan: Presented with SOB. Normal CXR. Negative cardiac enzymes. SOB resolved. Unclear etiology. Monitor for now. Qualifiers: COPD type: unspecified COPD Qualified Code(s): J44.9 - Chronic obstructive pulmonary disease, unspecified (4) Primary hypertension: Assessment and Plan: C/w toprol. (5) Hypothyroidism (acquired): Assessment and Plan: C/w levothyroxine. TSH at goal (6) Severe protein-calorie malnutrition: Assessment and Plan: Severe PCM. BMI of only 16, has loss of muscle mass, loss of subcutaneous tissue. Added Ensure Q12, along with prostat.
[2024-06-27] MEDS: PROSTAT 15 GM PROTEIN/100 CAL 30 ML LIQUID PACKET PO (21:17)
[2024-06-27] MEDS: ENSURE CLEAR 237 ML LIQUID PO (21:17)
[2024-06-27] MEDS: LIPASE PO (21:18)
[2024-06-27] MEDS: AMYLASE PO (21:18)
[2024-06-27] MEDS: [UNRECOGNIZED DRUG - OTHER] PO (21:18)
[2024-06-27] MEDS: PROTEASE PO (21:18)
[2024-06-27 23:24] LABS: Carbon Dioxide 19.5 mmol/L (21.0-32.0); Chloride 103 mmol/L (98-107); Estimated GFR (African America >60 (>=60); Estimated GFR (Non-African Ame >60 (>=60); Glucose 99 mg/dL (74-106); Potassium 3.5 mmol/L (3.5-5.1); Sodium 130 mmol/L (136-145)
[2024-06-28] VITALS (12 sets, daily range): BP systolic 111–130; BP diastolic 59–78; PULSE 82–93; TEMP 36.4–36.7; O2SAT 93–95
[2024-06-28] MEDS: [UNRECOGNIZED DRUG - OTHER] PO (05:31)
[2024-06-28] MEDS: LIPASE PO ×2 (05:31→11:52)
[2024-06-28] MEDS: PROTEASE PO ×2 (05:31→11:52)
[2024-06-28] MEDS: LEVOTHYROXINE SODIUM 75 MCG TABLET PO (05:31)
[2024-06-28] MEDS: AMYLASE PO ×2 (05:31→11:52)
[2024-06-28] MEDS: 0.9 % SODIUM CHLORIDE 1,000 ML 100 ML IV (06:26)
[2024-06-28 07:45] LABS: Eosinophils Absolute Auto 0.4 10^3/uL (0.0-0.7); Eosinophils Percent Auto 11.5 % (0.9-7.0); Hematocrit 27.2 % (36.0-48.0); Hemoglobin 8.9 g/dL (12.0-16.0); Lymphocytes Absolute Auto 1.4 10^3/uL (1.2-3.8); Lymphocytes Percent Auto 36.6 % (20.5-60.0); Mean Corpuscular HGB Conc 32.7 g/dL (29.9-35.2); Mean Corpuscular Hemoglobin 30.2 pg (26.7-34.0); Mean Corpuscular Volume 92.2 fL (81.0-99.0); Mean Platelet Volume 9.3 fL (9.5-13.5); Monocytes Absolute Auto 0.5 10^3/uL (0.3-0.8); Monocytes Percent Auto 13.4 % (1.7-12.0); Neutrophils Absolute Auto 1.4 10^3/uL (1.4-6.5); Neutrophils Percent Auto 37.5 % (43.0-75.0); Platelet Count 181 10^3/uL (150-450); Red Blood Count 2.95 10^6/uL (4.20-5.40); Red Cell Distribution Width 13.4 % (11.0-15.0); White Blood Count 3.8 10^3/uL (4.0-11.0)
[2024-06-28 07:56] LABS: Alanine Aminotransferase 14 U/L (14-59); Albumin Level 2.3 g/dL (3.4-5.0); Alkaline Phosphatase 81 U/L (46-116); Anion Gap 12.9; Aspartate Amino Transferase 21 U/L (15-37); BUN Creatinine Ratio 23.9; Bilirubin Total 0.3 mg/dL (0.2-1.0); Calcium 7.5 mg/dL (8.5-10.1); Carbon Dioxide 18.8 mmol/L (21.0-32.0); Chloride 102 mmol/L (98-107); Estimated GFR (African America >60 (>=60); Estimated GFR (Non-African Ame >60 (>=60); Globulin 2.2 g/dL; Glucose 78 mg/dL (74-106); Potassium 3.7 mmol/L (3.5-5.1); Sodium 130 mmol/L (136-145); Total Protein 4.5 g/dL (6.4-8.2)
[2024-06-28] MEDS: ENSURE CLEAR 237 ML LIQUID PO (08:51)
[2024-06-28] MEDS: PROSTAT 15 GM PROTEIN/100 CAL 30 ML LIQUID PACKET PO (08:51)
[2024-06-28] MEDS: METOPROLOL SUCCINATE 25 MG TAB.ER.24H 12.5 MG PO (08:51)
--- NOTE | 2024-06-28 09:50 | XR_ITS ---
The [address] [address] Patient Name: CECELIA VILLALPANDO MRN: [id number] date: 1940 Sex: F Assigned Patient Location: [place] Current Patient Location: [place] Accession/Order Number: [id number] Exam Date: 06/28/2024 10:15 Report Date: 06/28/2024 10:57 At the request of: SHAIKH JUAN Procedure: XR chest 1V EXAM: XR chest 1V HISTORY: SOB COMPARISON: 06/26/2024 TECHNIQUE: AP portable FINDINGS: LUNGS: Hyperinflation. No focal parenchymal infiltrates VASCULATURE: No increased pulmonary vasculature. PLEURA: No pneumothorax, effusion, or pleural thickening. CARDIAC: No cardiomegaly or cardiac silhouette abnormality. MEDIASTINUM: No visible mass or adenopathy. Left bipolar pacemaker BONES: No fracture or visible bone lesion. OTHER: Negative. XR/XR chest 1V IMPRESSION: Hyperinflation, clear lungs Electronically authenticated by: MATI GARCIA Date: 06/28/2024 10:57
--- NOTE | 2024-06-28 11:51 | CM.NOTE ---
Rounds made with Dr. Schneider, discussed with pt about discharge to home today. Pt will f/u with primary care doctor next week. Pt also will discharge to home with [facility]
--- NOTE | 2024-06-28 14:51 | P.DS_ITS ---
DS: Providers Provider Date of admission: 06/27/24 01:59 Primary care physician: Effie Jackman MD Admitting clinician: Shaikh Jennie Attending physician on admission: Shaikh Jennie Consults: 06/27/24 06:17 Physical Therapy Eval and Treat Routine Reason for consultation: WEAKNESS Attending physician on discharge: Shaikh Jennie Discharging clinician: Shaikh Jennie Anticipated date of discharge: 06/28/24 DS: Diagnosis Discharge Diagnosis (1) Acute hyponatremia: (2) Chronic diastolic (congestive) heart failure: (3) COPD (chronic obstructive pulmonary disease): Qualifiers: COPD type: unspecified COPD Qualified Code(s): J44.9 - Chronic obstructive pulmonary disease, unspecified (4) Primary hypertension: (5) Hypothyroidism (acquired): (6) Severe protein-calorie malnutrition: DS: Summary Hospital Course Hospital Course: 83 y o female presented to ED one day hx of feeling SOB. Work up in ED revealed serum sodium of 123. Patient Fabiola nausea/vomiting and poor PO intake but noticeably dry on clinical exam. She was started on IVF NS with close monitoring of her serum sodium/volume status. Her serum sodium improved during the course of admission and she is medically stable for discharge today. Status at Discharge Overall status at discharge: patient is back to baseline Time Spent with Patient Time attestation: Total time spent providing and/or coordinating discharge services: Time spent: greater than 30 minutes Exam Constitutional Vital Signs, click to edit/add: Last Vital Signs Temp 98.0 F 06/28/24 11:56 Pulse 85 06/28/24 13:59 Resp 18 06/28/24 11:56 BP 130/78 06/28/24 11:56 Pulse Ox 95 06/28/24 11:56 O2 Del Method Room Air 06/28/24 11:56 Common normals: no apparent distress General appearance: cooperative, comfortable and frail appearing Nutritional appearance: cachectic Respiratory Common normals: normal respiratory effort, no use of accessory muscles and clear to auscultation bilaterally Effort & inspection: able to speak in complete sentences Cardio Common normals: no JVD, regular rate, regular rhythm, S1 normal heart sound and S2 normal heart sound GI Common normals: Normal to inspection, nondistended, normoactive bowel sounds present, soft to palpation, non-tender and no hepatosplenomegaly Extremity Common normals: normal to inspection and full ROM Neuro Common normals: oriented x3, moves all extremities and no focal motor deficits Psych Common normals: mental status grossly normal, thought process normal, denies homicidal ideation and denies suicidal ideation DS: Data Data Completed and Pending Labs on day of discharge: Labs from last 24 hours 06/28/24 06/27/24 07:26 23:00 WBC 3.8 L RBC 2.95 L Hgb 8.9 L Hct 27.2 L MCV 92.2 MCH 30.2 MCHC 32.7 RDW 13.4 Plt Count 181 MPV 9.3 L Neut % (Auto) 37.5 L Lymph % (Auto) 36.6 [place] % (Auto) 13.4 H Eos % (Auto) 11.5 H Baso % (Auto) 1.0 Neut # (Auto) 1.4 Lymph # (Auto) 1.4 [place] # (Auto) 0.5 Eos # (Auto) 0.4 Baso # (Auto) 0.0 Abs Immat Gran (auto) 0.00 Imm/Tot Granulo (auto) 0.0 Sodium 130 L 130 L Potassium 3.7 3.5 Chloride 102 103 Carbon Dioxide 18.8 L 19.5 L Anion Gap 12.9 11.0 BUN 11.0 11.0 Creatinine 0.46 L 0.50 L Est GFR ( Amer) >60 >60 Est GFR (Non-Af Amer) >60 >60 BUN/Creatinine Ratio 23.9 22.0 Glucose 78 99 Calcium 7.5 L 7.0 L Total Bilirubin 0.3 AST 21 ALT 14 Alkaline Phosphatase 81 Total Protein 4.5 L Albumin 2.3 L Globulin 2.2 Albumin/Globulin Ratio 1.0 Discharge Plan Discharge Disposition: Home, Self-Care Discharge Medications: Continued levothyroxine 75 mcg tablet 75 mcg PO DAILY albuterol sulfate 90 mcg/actuation HFA aerosol inhaler 2 puff INHALATION DAILY metoprolol succinate 25 mg tablet extended release 24 hr 12.5 mg PO DAILY (DME) nebulizers [Aeroneb Go Nebulizer] Misc See Rx Instructions .Route Qty: 1 0RF Rx Instructions: As directed please use for breathing treatment as directed albuterol sulfate 2.5 mg /3 mL (0.083 %) solution for nebulization 2.5 mg inhalation Q6H PRN (Reason: shortness of breath or wheezing) Qty: 180 0RF albuterol sulfate 2.5 mg /3 mL (0.083 %) solution for nebulization 2.5 mg inhalation Q6H PRN (Reason: shortness of breath or wheezing) Qty: 90 0RF Rx Instructions: icd 10 J44.9 Creon 3,000-9,500- 15,000 unit capsule,delayed release(DR/EC) 1 cap PO TID cyanocobalamin (vitamin B-12) 1,000 mcg tablet 1,000 mcg PO .qd Activity: increase activity as tolerated Diet: advance to your usual diet Print Language: Guyanese Forms: Portal Instructions Follow Up Appointments: Daughter will call and schedule the hospital stay follow up appt. with Dr. Jackman for 5-7 days following discharge. [phone]
--- NOTE | 2024-06-28 15:12 | SWNOTE1 ---
Pt is being discharged today. JORDI sent CRF, dc med rec, ED note, H&P, and dc summary to [facility].
[2024-06-29 12:11] LABS: Osmolality, Urine 330 mOsmol/kg (.)
--- NOTE | 2024-06-29 14:38 | CM.DCFOLLOWU ---
06/29- 1st attempt. No answer
--- NOTE | 2024-06-30 14:30 | CM.DCFOLLOWU ---
06/30/24 2nd attempt, no answer
== END 2024-06-28 15:39 | disposition home or self-care (01) ==
LOC: ER 06-27 01:38 → MS 06-27 01:59
PROVIDERS: Registered Nurse; Admitting Provider Internal Medicine; Emergency Provider Internal Medicine; PCP Family Medicine; Visit Provider Internal Medicine
DX: E87.1 Hypo-osmolality and hyponatremia (principal); I11.0 Hypertensive heart disease with heart failure; I50.32 Chronic diastolic (congestive) heart failure; J44.9 Chronic obstructive pulmonary disease, unspecified; E03.9 Hypothyroidism, unspecified; E43 Unspecified severe protein-calorie malnutrition; Z68.1 Body mass index [BMI] 19.9 or less, adult; Z79.890 Hormone replacement therapy; Z79.899 Other long term (current) drug therapy
CPT/HCPCS: 36415; 71045; 80048; 80053; 82948; 83735; 83880; 83930; 83935; 84300; 84443; 84484; 85025; 93005; 94761; 97161; 99285; G0378

== ENCOUNTER 2024-07-22 20:41 | Emergency (ER) | payer MEDICARE, OTHER, SELFPAY ==
[2024-07-22] VITALS (11 sets, daily range): BP systolic 107–127; BP diastolic 65–90; PULSE 87–111; TEMP 36.6; O2SAT 97–100; BMI 20.4
--- OUTSIDE RECORDS SUMMARY | 2024-07-22 20:47 | XMS_ITS | CCD ---
Author Organization [facility] Care Team Providers Care Information Operator Name Role Phone PHYSICIAN, DEFAULT Unavailable Unavailable PHYSICIAN, DEFAULT Unavailable Unavailable DANIELLE COFFMAN Unavailable Unavailable JACK PINA Unavailable Unavailable NONSTAFF, [facility] Unavailable Unavailable Jack Sanches MARKETING PLANNING MANAGER-C Admitting UnavailJack Pandey MARKETING PLANNING MANAGER-C Attending UnavailJani Paul Primary Care Unavailable JOSH, [...] Unavailable KAROL VARELA Consulting Unavailable JOSH, DR DABRY Primary Care Unavailable MANUEL ., DR NIETO [...] sources) levoFLOXacin; Translations: [LEVOFLOXACIN] Drug Allergy 08-07-2017 [facility] Repository (3 sources) psyllium; Translations: [PSYLLIUM] Drug Allergy 02-22-2009 [facility] Repository (11 sources) levoFLOXacin Drug Allergy 02-05-[address] [facility] Repository (1 source) Penicillin Drug Allergy [facility] Repository (11 sources) Psyllium Drug Allergy 03-03-[address] 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 CURRENT DRUG THERAPY] Onset: 3 Episodic Other [...] Onset: 7 Unclassified (1 source) Fall / 78801() Onset: 7 Unclassified (1 source) Arm Injury / 53245() Onset: 7 Unclassified (1 source) R06.02 - [...] Range Facility Office Visiton 04-11-2024 Follow-up visit [id number] Asia Dominguez 1940 F Date Provider Department Center 04/11/2024 [id number] PATEL [facility] D[facility] Family History Problem Relation Age of Onset Stroke Mother Other Mother No Known Problems Father Family Status - Relation Status Age at Mother Father Level of Service:15640 [place] POSTOP FOLLOW UP VISIT RELATED TO ORIGINAL PX Normal [facility] HEMOGLOBIN AND HEMATOCRIT, B LOODon 04-05-2024 Hematocrit (Bld) [Volume fraction] 29.6 % Low 36.0-48.0 [facility] Comment on above: Performed By: #### L [id number] #### [facility] (BEAKER) [address] [place] [address] Hemoglobin (Bld) [Mass/Vol] 9.8 g/dL Low 12.0-15.0 [facility] Comment on above: Performed By: #### L [id number] #### [facility] (BEAKER) [address] [place] [address] 30on 04-04-2024 30 The patient is Moderately [...] goals for the shift include stable vitals [facility] 30 Daily Case Managemen t Update Multidisciplinary rounds have been completed. Barriers to Discharge: Pending Clinical Course. Admitted with Third degree heart block-Planning PPM implantation today. Planning to Return [place] [facility] living with on discharge. Diet: Dietary Orders (From admission, onward) Start Ordered 04/04/24 0001 Diet NPO Diet effective midnight Comments: Sips with medications Question: Reason for NPO: Answer: Operation/Procedure 04/03/24 0744 04/03/24 1233 Special Kitchen Request Once Comments: Grilled cheese on wheat, vanilla ice, fruit cup, 2 diet coke 04/03/24 1235 04/03/24 0824 Special Kitchen Request Once Comments: Plz 2 pakistani toast, butter and syrup.turkey sausage, grits with brown sugar and butter, raspberry mongolian,orange juice and coffee, cream and sugar 04/03/24 0826 04/02/24 1302 Special Kitchen Request Once Comments: Plz send hot roast beef sandwich, mashed potatoes and gravy, Chicken noodle soup, Ramos pie,diet cola, cottage cheese 04/02/24 1303 Physician Expected Discharge Date: 04/05/2024 Discharge Delays: PT Six Click Score: 23 OT Six Click Score: PT Recommendations: OT Recommendations: New Consults: [facility] 30 The patient is Moderately Stable - Low risk of patient condition declining or worsening The patient's goals for the shift include comfort The clinical goals for the shift include Vss, safety Over the shift, the patient did not make progress toward the following goals. Barriers to progression include na. Recommendations to address these barriers include na. [facility] 30on 04-03-2024 30 The patient is Moderately Stable - Low risk of patient condition declining or worsening The patient's goals for the shift include comfort and rest The clinical goals for the shift include stable VS Over the shift, the patient did not make progress toward the following goals. Barriers to progression include na. Recommendations to address these barriers include na. [facility] 30 The patient is Moderately Stable - Low risk of patient condition declining or worsening The patient's goals for the shift include comfort and rest The clinical goals for the shift include stable VS Over the shift, the patient continues to make progress toward the following goals. [facility] 30on 04-02-2024 30 The patient is Moderately Stable - Low risk of patient condition declining or worsening The patient's goals for the shift include The clinical goals for the shift include vss Over the shift, the patient did not make progress toward the following goals. Barriers to progression include na. Recommendations to address these barriers include na. [facility] 30 The patient is Moderately Stable - Low risk of patient condition declining or worsening The patient's goals for the shift include The clinical goals for the shift include vss Over the shift, the patient continues to make progress toward the following goal. [facility] CONSULTon 04-02-2024 CONSULT --- Attestation signed by [...] QT Interval 532 QTC CALCULATION(BAZETT) 411 P [place] 82 R-[place] -60 T Wave [place] 71 Impression Sinus rhythm with complete heart [...] ECG 12 (more content not included)... Normal [facility] APTTon 04-01-2024 ACTIVATED PARTIAL THROMBOPLASTIN TIME IN PPP BY COAGULATION ASSAY 33.9 Seconds Normal 25.0-35.0 [facility] Comment on above: Result Comment: Clin ical significance of the APTT is questionable in the presence of heparin. Performed By: #### L [id number] ####[facility] ([facility])[address] [place] [address] B-TYPE NATRIURETIC PEPTIDEon 04-01-2024 Natriuretic peptide B (Bld) [Mass/Vol] 566 pg/mL High 0-100 [facility] Comment on above: Performed By: #### L [id number] #### [facility] ([facility]) [address] [place] [address] BASIC METABOLIC PANELon - Anion gap [Moles/Vol] 9 mmol/L Normal 7-20 [facility] Comment on above: Performed By: #### L [id number] ####[facility] ([facility])[address] [place] [address] Calcium [Mass/Vol] 8.0 mg/dL Low 8.6-10.3 [facility] Comment on above: Performed By: #### L [id number] ####[facility] (BEAKER)[address] [place] [address] Chloride [Moles/Vol] 112 mmol/L High 98-107 [facility] Comment on above: Performed By: #### L [id number] ####[facility] (BEAKER)[address] [place] [address] CO2 [Moles/Vol] 18 mmol/L Low 21-31 [facility] Comment on above: Performed By: #### L [id number] ####[facility] [place] [address] Creatinine [Mass/Vol] 0.83 mg/dL Normal 0.60-1.20 [facility] Comment on above: Performed By: #### L [id number] ####[facility] ([facility] [place] [address] GLOMERULAR FILTRATION RATE ML/MIN/1.73 SQ M.PREDICTED 69.0 mL/min/1.73m*2 Normal >60.0 [facility] Comment on above: Result Comment: [facility]???s estimated glomerular filtration rate (eGFR) [...] of individuals. Performed By: #### L [id number] ####[facility] ([facility] [place] [address] Glucose [Mass/Vol] 91 mg/dL Normal 70-100 [facility] Comment on above: Performed By: #### L [id number] ####[facility] (BEAKER)[address] [place] [address] Potassium [Moles/Vol] 4.3 mmol/L Normal 3.5-5.1 [facility] Comment on above: Performed By: #### L [id number] ####[facility] (BEAKER)[address] [place] [address] Sodium [Moles/Vol] 135 mmol/L Low 136-145 [facility] Comment on above: Performed By: #### L [id number] ####[facility] ([facility] [place] [address] Urea nitrogen [Mass/Vol] 19 mg/dL Normal 7-25 [facility] Comment on above: Performed By: #### L [id number] ####[facility] ([facility])[address] [place] [address] UREA NITROGEN/CREATININE (MASS RATIO) IN SER/PLAS 22.9 Normal [facility] Comment on above: Performed By: #### L [id number] ####[facility] ([facility])[address] [place] [address] CBC WITH AUTO DIFFERENTIALon 04-01-2024 Basophils (Bld) [#/Vol] 0.04 10*3/uL Normal 0.00-0.20 [facility] Comment on above: Performed By: #### L [id number] #### [facility] ([facility]) [address] [place] [address] Basophils/100 WBC (Bld) 1.0 % Normal 0.0-1.0 [facility] Comment on above: Performed By: #### L [id number] #### [facility] (BEAKER) [address] [place] [address] Eosinophils (Bld) [#/Vol] 0.56 10*3/uL High 0.00-0.50 [facility] Comment on above: Performed By: #### L [id number] #### [facility] [address] [place] [address] Eosinophils/100 WBC (Bld) 13.9 % High 0.0-6.0 [facility] Comment on above: Performed By: #### L [id number] #### [facility] (BEAKER) [address] [place] [address] Erythrocyte distribution width (RBC) [Ratio] 14.2 % Normal 11.5-15.0 [facility] Comment on above: Performed By: #### L [id number] #### [facility] ([facility]) [address] [place] [address] ERYTHROCYTE MEAN CORPUSCULAR HEMOGLOBIN CONCENTRATION (G/DL) BY AUTOMATED 31.3 g/dL Low 32.0-35.0 [facility] Comment on above: Performed By: #### L [id number] #### [facility] ([facility]) [address] [place] [address] Hematocrit (Bld) [Volume fraction] 31.3 % Low 36.0-48.0 [facility] Comment on above: Performed By: #### L [id number] #### [facility] ([facility]) [address] [place] [address] Hemoglobin (Bld) [Mass/Vol] 9.8 g/dL Low 12.0-15.0 [facility] Comment on above: Performed By: #### L [id number] #### [facility] ([facility]) [address] [place] [address] Immature granulocytes (Bld) [#/Vol] 0.00 10*3/uL Normal 0.00-0.20 [facility] Comment on above: Performed By: #### L [id number] #### [facility] ([facility] [address] [place] [address] Immature granulocytes/100 WBC (Bld) 0.0 % Normal 0.0-1.0 [facility] Comment on above: Performed By: #### L [id number] #### [facility] ([facility]) [address] [place] [address] Lymphocytes (Bld) [#/Vol] 1.85 10*3/uL Normal 1.20-4.00 [facility] Comment on above: Performed By: #### L [id number] #### [facility] ([facility]) [address] [place] [address] Lymphocytes/100 WBC (Bld) 45.9 % High 20.0-45.0 [facility] Comment on above: Performed By: #### L [id number] #### [facility] ([facility]) [address] [place] [address] MCH (RBC) [Entitic mass] 30.9 pg Normal 27.0-33.0 [facility] Comment on above: Performed By: #### L [id number] #### [facility] ([facility]) [address] [place] [address] MCV (RBC) [Entitic vol] 98.7 fL High 82.0-98.0 [facility] Comment on above: Performed By: #### L [id number] #### [facility] ([facility]) [address] [place] [address] Monocytes (Bld) [#/Vol] 0.45 10*3/uL Normal 0.10-1.00 [facility] Comment on above: Performed By: #### L [id number] #### [facility] ([facility]) [address] [place] [address] Monocytes/100 WBC (Bld) 11.2 % Normal 5.0-12.0 [facility] Comment on above: Performed By: #### L [id number] #### [facility] ([facility]) [address] [place] [address] Neutrophils (Bld) [#/Vol] 1.13 10*3/uL Low 1.60-7.60 [facility] Comment on above: Performed By: #### L [id number] #### [facility] ([facility]) [address] [place] [address] Neutrophils/100 WBC (Bld) 28.0 % Low 40.0-72.0 [facility] Comment on above: Performed By: #### L [id number] #### [facility] ([facility]) [address] [place] [address] NRBC (PER 100 WBCS) BY AUTOMATED COUNT 0.0 % Normal 0 [facility] Comment on above: Performed By: #### L [id number] #### [facility] ([facility]) [address] [place] [address] PLATELETS (10*3/UL) IN BLOOD AUTOMATED COUNT 177 10*3/uL Normal 150-400 [facility] Comment on above: Performed By: #### L [id number] #### [facility] ([facility]) [address] [place] [address] RBC (Bld) [#/Vol] 3.17 10*6/uL Low 3.80-5.00 [facility] Comment on above: Performed By: #### L [id number] #### [facility] ([facility]) [address] [place] [address] WBC (Bld) [#/Vol] 4.03 10*3/uL Normal 4.00-10.60 [facility] Comment on above: Performed By: #### L [id number] #### [facility] ([facility]) [address] [place] [address] EDPROVon 04-01-2024 EDPROV --- Attestation signed by Felicia Medina DO at 04/02/2024 3:16 PM 2022 Emergency Medicine Coding Guide from [facility] on 04/02/2024 All calculations should be rechecked [...] Patient presents with Bradycardia Pt sent by [facility] for bradycardia. Pt c/o occasional SOB but denies being symptomatic otherwise. HPI 83-year-old female with history of Alzheimer disease, asthma, A-fib, COPD, and hypothyroidism presenting due to concerns of third-degree heart block. Patient evaluated at [facility] office today after patient was found to be bradycardic at neurologist office. Per cardiology patient was in third-degree heart block and sent to be evaluated for possible pacemaker placement. Patient states that she feels tired all the time but denies any other symptoms with it. [place] Coma Scale Score: 15 Patient History Past Medical History: Diagnosis Date Abnormal ECG Alzheimer disease ([facility]) Asthma Atrial fibrillation ([facility]) Bradycardia COPD (chronic obstructive pulmonary disease) ([facility]) Dementia ([facility]) Hypothyroidism RLS (restless legs syndrome) Past Surgical [...] 1843 Rate: 36 Rhythm: 3rd degree block [place]: LAD QRS: 142 [place]: n/a Qtc: 411 Other findings: TWI in V3 [TS] ED Course User Index [TS] Felicia Medina DO Diagnoses as of 04/01/242002 Third degree heart block (CMS/HCC) Medical Decision Making Reviewed patie (more content not included)... Normal [facility] Office Visiton 04-01-2024 Follow-up visit [id number] Asia Dominguez 1940 F Date Provider Department Center 04/01/2024 [id number] BILLINGS JAV[facility] Family History Problem Relation Age of Onset Stroke Mother Other Mother No Known Problems Father Family Status - Relation Status Age at Mother Father Level of Service:22722 [place] OFFICE/OUTPATIENT NEW MODERATE MDM 45 MINUTES Normal [facility] PROTIME-INRon 04-01-2024 INR IN PPP BY COAGULATION ASSAY 1.18 High 0.90-1.10 [facility] Comment on above: Result Comment: [...] 1995;108:231S-246S. Performed By: #### L [id number] #### [facility] [employer]) [address] [place] [address] PROTHROMBIN TIME (PT) IN PPP BY COAGULATION ASSAY 15.0 Seconds High 12.3-14.8 [facility] Comment on above: Performed By: #### L [id number] #### [facility] [employer]) [address] [place] [address] T4, FREEon 04-01-2024 THYROXINE (T4) FREE (NG/DL) IN SER/PLAS 0.77 ng/dL Normal 0.71-1.85 [facility] Comment on above: Performed By: #### L [id number] ####[facility] [employer])[address] [place] [address] TROPONIN Ion 04-01-2024 Troponin I.cardiac [Mass/Vol] 0.04 ng/mL Normal 0.00-0.04 [facility] Comment on above: Performed By: #### L [id number] #### [facility] ([facility]) [address] [place] [address] TSH3 REFLEX TO FT4on 024 THYROTROPIN (MIU/L) IN SER/PLAS BY DETECTION LIMIT <= 0.05 MIU/L 6.13 mIU/L High 0.34-5.60 [facility] Comment on above: Performed By: #### L [id number] #### [facility] ([facility]) [address] [place] [address] CULTURE URINEon 01-02-2023 CULTURE URINE Isolate 1 [...] F Nitrofurantoin <=16 S F Normal [facility] Comment on above: Performed By: #### C BC #### [facility] [address] [place] [address] Dr. Con Santana BNPon 01-01-2023 Natriuretic peptide B (Bld) [Mass/Vol] 6147.0 pg/mL Critically high <=1,800.0 [facility] Comment on above: Performed By: #### H STROPN #### [facility] [address] [place] [address] Dr. Con Santana CBC AUTO DIFFon 01-01-2023 BASO # 0.0 103/ul Normal 0.0-0.1 [facility] Comment on above: Performed By: #### C BC #### [facility] [address] [place] [address] [address] Con Santana Basophils/100 WBC (Bld) 0.2 % Normal 0.2-2.0 [facility] Comment on above: Performed By: #### C BC #### [facility] [address] [place] [address] Dr. Con Santana EO # 0.0 103/ul Normal 0.0-0.[address] [facility] Comment on above: Performed By: #### C BC #### [facility] [address] [place] [address] Dr. Con Santana Eosinophils/100 WBC (Bld) 0.0 % Critically low 0.9-7.0 [facility] Comment on above: Performed By: #### C BC #### [facility] [address] [place] [address] Dr. Con Santana Erythrocyte distribution width (RBC) [Ratio] 14.4 % Normal 11.0-15.0 [facility] Comment on above: Performed By: #### C BC #### [facility] [address] [place] [address] Dr. Con Santana Hematocrit (Bld) [Volume fraction] 28.5 % Critically low 36.0-48.0 [facility] Comment on above: Performed By: #### C BC #### [facility] [address] [place] [address] Dr. Con Santana Hemoglobin (Bld) [Mass/Vol] 9.1 g/dL Critically low 12.0-16.0 [facility] Comment on above: Performed By: #### C BC #### [facility] [address] [place] [address] Dr. Con Santana IG # 0.14 10e3/ul Critically high 0.00-0.[address] [facility] Comment on above: Performed By: #### C BC #### [facility] [address] [place] [address] Dr. Con Santana IG % 1.1 % Critically high 0.0-0.5 [facility] Comment on above: Performed By: #### C BC #### [facility] [address] [place] [address] [address] Con Santana LYMPH # 0.9 103/ul Critically low 1.2-3.8 [facility] Comment on above: Performed By: #### C BC #### [facility] [address] [place] [address] Dr. Con Santana Lymphocytes/100 WBC (Bld) 7.3 % Critically low 20.5-60.[address] [facility] Comment on above: Performed By: #### C BC #### [facility] [address] [place] [address] [address] Con Santana MANUAL DIFF REQ NO Normal [facility] Comment on above: Performed By: #### C BC #### [facility] [address] [place] [address] Dr. Con Santana MCH (RBC) [Entitic mass] 31.1 pg Normal 26.7-34.0 [facility] Comment on above: Performed By: #### C BC #### [facility] [address] [place] [address] Dr. Con Santana MCHC (RBC) [Mass/Vol] 31.9 g/dL Normal 29.9-35.[address] [facility] Comment on above: Performed By: #### C BC #### [facility] [address] [place] [address] Dr. Con Santana MCV (RBC) [Entitic vol] 97.3 fL Normal 81.0-99.[address] [facility] Comment on above: Performed By: #### C BC #### [facility] [address] [place] [address] Dr. Con Santana MONO # 1.3 103/ul Critically high 0.3-0.8 [facility] Comment on above: Performed By: #### C BC #### [facility] [address] [place] [address] Dr. Con Santana Monocytes/100 WBC (Bld) 10.0 % Normal 1.7-12.[address] [facility] Comment on above: Performed By: #### C BC #### [facility] [address] [place] [address] [address] Con Santana NEUT # 10.5 103/ul Critically high 1.4-6.5 [facility] Comment on above: Performed By: #### C BC #### [facility] [address] [place] [address] Dr. Con Santana Neutrophils/100 WBC (Bld) 81.4 % Critically high 43.0-75.0 [facility] [facility] Comment on above: Performed By: #### C BC #### [facility] [address] [place] [address] Dr. Con Santana Platelet mean volume (Bld) [Entitic vol] 10.5 fL Normal 9.5-13.[address] [facility] Comment on above: Performed By: #### C BC #### [facility] [address] [place] [address] Dr. Con Santana PLT 179 103/ul Normal 150-450 [facility] Comment on above: Performed By: #### C BC #### [facility] [address] [place] [address] Dr. Con Santana RBC 2.93 106/ul Critically low 4.20-5.40 [facility] Comment on above: Performed By: #### C BC #### [facility] [address] [place] [address] Dr. Con Santana WBC 12.8 103/ul Critically high 4.0-11.0 [facility] Comment on above: Performed By: #### C BC #### [facility] [address] [place] [address] Dr. Con Santnaa POINT OF CARE GLUCOSEon Glucose [Mass/Vol] 97 mg/dL Normal 74-106 [facility] Comment on above: Performed By: #### C BC #### [facility] [address] [place] [address] Dr. Con Santana PROF CHEM 8 (BAS METB)on Anion gap [Moles/Vol] 14.3 mmol/L Normal [facility] Comment on above: Performed By: #### H STROPN #### [facility] [address] [address] [address] Con Santana Calcium [Mass/Vol] 7.2 mg/dL Critically low 8.5-10.1 [facility] Comment on above: Performed By: #### H STROPN #### [facility] [address] [address] [address] Con Santana Chloride [Moles/Vol] 108 mmol/L Critically high 98-107 [facility] Comment on above: Performed By: #### H STROPN #### [facility] [address] [address] [address] Con Santana CO2 [Moles/Vol] 22.6 mmol/L Normal 21.0-32.0 [facility] Comment on above: Performed By: #### H STROPN #### [facility] [address] [address] [address] Con Santana Creatinine [Mass/Vol] 1.08 mg/dL Critically high 0.55-1.02 [facility] Comment on above: Performed By: #### H STROPN #### [facility] [address] [address] [address] Con Santana EGFR-AF WELSH 59 mL/min/1.73m2 Critically low >=60 [facility] Comment on above: Performed By: #### H STROPN #### [facility] [address] [address] [address] Con Santana EGFR-NON AF WELSH 48 mL/min/1.73m2 Critically low >=60 [facility] Comment on above: Performed By: #### H STROPN #### [facility] [address] [address] [address] Con Santana Glucose [Mass/Vol] 100 mg/dL Normal 74-106 [facility] Comment on above: Performed By: #### H STROPN #### [facility] [address] [address] [address] Con Santana Potassium [Moles/Vol] 3.9 mmol/L Normal 3.5-5.1 [facility] Comment on above: Performed By: #### H STROPN #### [facility] [address] [address] [address] Con Santana Sodium [Moles/Vol] 141 mmol/L Normal 136-145 [facility] Comment on above: Performed By: #### H STROPN #### [facility] [address] [place] [address] Dr. Con Santana Urea nitrogen [Mass/Vol] 27.0 mg/dL Critically high 7.0-18.0 [facility] Comment on above: Performed By: #### H STROPN #### [facility] [address] [place] [address] Dr. Con Santana Urea nitrogen/Creatinine [Mass ratio] 25.0 mg/mg Normal [facility] Comment on above: Performed By: #### H STROPN #### [facility] [address] [place] [address] Dr. Con Santana BNPon 12-31-2022 Natriuretic peptide B (Bld) [Mass/Vol] 7148.0 pg/mL Critically high <=1,800.0 [facility] Comment on above: Performed By: #### H STROPN #### [facility] [address] [place] [address] Dr. Con Santana CBC W MANUAL DIFFon 01-01-20 23 ATYPICAL LYMPH # Normal [facility] Comment on above: Performed By: #### P OCGLUC #### [facility] [address] [place] [address] Dr. Con Santana ATYPICAL LYMPH % Normal [facility] Comment on above: Performed By: #### P OCGLUC #### [facility] [address] [place] [address] Dr. Con Santana BAND # 0.0 103/ul Normal 0.0-0.3 [facility] Comment on above: Performed By: #### P OCGLUC #### [facility] [address] [place] [address] Dr. Con Santana BAND % 0 % Normal 0-[address] [facility] Comment on above: Performed By: #### P OCGLUC #### [facility] [address] [place] [address] Dr. Con Santana BASOM # 0.00 103/ul Normal 0.00-0.10 [facility] Comment on above: Performed By: #### P OCGLUC #### [facility] [address] [address] [address] Con Santana BASOM % 0.0 % Critically low 0.2-2.0 [facility] Comment on above: Performed By: #### P OCGLUC #### [facility] [address] [address] [address] Con Santana BLAST # Normal [facility] Comment on above: Performed By: #### P OCGLUC #### [facility] [address] [address] [address] Con Santana BLAST % Normal [facility] Comment on above: Performed By: #### P OCGLUC #### [facility] [address] [address] [address] Con Santana CORRECTED WBC Normal 4.0-11.0 [facility] Comment on above: Performed By: #### P OCGLUC #### [facility] [address] [address] [address] Con Santana EOS # 0.00 103/ul Normal 0.00-0.70 [facility] Comment on above: Performed By: #### P OCGLUC #### [facility] [address] [address] [address] Con Santana EOS% 0.0 % Critically low 0.9-7.0 [facility] Comment on above: Performed By: #### P OCGLUC #### [facility] [address] [address] [address] Con Santana HCT 27.8 % Critically low 36.0-48.0 [facility] Comment on above: Performed By: #### P OCGLUC #### [facility] [address] [address] [address] Con Santana HGB 9.0 g/dl Critically low 12.0-16.0 [facility] Comment on above: Performed By: #### P OCGLUC #### [facility] [address] [address] [address] Con Santana LYMPHM # 0.53 103/ul Critically low 1.20-3.80 [facility] Comment on above: Performed By: #### P OCGLUC #### [facility] [address] [address] [address] Con Santana LYMPHM% 5.0 % Critically low 20.5-60.0 [facility] Comment on above: Performed By: #### P OCGLUC #### [facility] [address] [address] [address] Con Santana MCH 31.0 pg Normal 26.7-34.[address] [facility] Comment on above: Performed By: #### P OCGLUC #### [facility] [address] [address] [address] Con Santana MCHC 32.4 g/dl Normal 29.9-35.[address] [facility] Comment on above: Performed By: #### P OCGLUC #### [facility] [address] [address] [address] Con Santana MCV 95.9 fL Normal 81.0-99.0 [facility] Comment on above: Performed By: #### P OCGLUC #### [facility] [address] [address] [address] Con Santana METAMYELOCYTE # Normal [facility] Comment on above: Performed By: #### P OCGLUC #### [facility] [address] [address] [address] Con Santana METAMYELOCYTE % Normal [facility] Comment on above: Performed By: #### P OCGLUC #### [facility] [address] [address] [address] Con Santana MONOM# 0.11 103/ul Critically low 0.30-0.80 [facility] Comment on above: Performed By: #### P OCGLUC #### [facility] [address] [address] [address] Con Santana MONOM% 1.0 % Critically low 1.7-12.0 [facility] Comment on above: Performed By: #### P OCGLUC #### [facility] [address] [address] [address] Con Santana MPV 10.9 fL Normal 9.5-13.5 [facility] Comment on above: Performed By: #### P OCGLUC #### [facility] [address] [address] [address] Con Santana MYELOCYTE # Normal [facility] Comment on above: Performed By: #### P OCGLUC #### [facility] [address] [address] [address] Con Santana MYELOCYTE % Normal [facility] Comment on above: Performed By: #### P OCGLUC #### [facility] [address] [place] [address] Dr. Con Santana NRBC Normal [facility] Comment on above: Performed By: #### P OCGLUC #### [facility] [address] [address] [address] Con Santana PLT 184 103/ul Normal 150-450 [facility] Comment on above: Performed By: #### P OCGLUC #### [facility] [address] [address] [address] Con Santana RBC 2.90 106/ul Critically low 4.20-5.[address] [facility] Comment on above: Performed By: #### P OCGLUC #### [facility] [address] [address] [address] Con Santana RDW 14.5 % Normal 11.0-15.0 [facility] Comment on above: Performed By: #### P OCGLUC #### [facility] [address] [address] [address] Con Santana SEG # 9.96 103/ul Critically high 1.40-6.50 [facility] Comment on above: Performed By: #### P OCGLUC #### [facility] [address] [place] [address] Dr. Con Santana SEG % 94.0 % Critically high 43.0-75.[address] [facility] Comment on above: Performed By: #### P OCGLUC #### [facility] [address] [address] [address] Con Santana WBC 10.6 103/ul Normal 4.0-11.0 [facility] Comment on above: Performed By: #### P OCGLUC #### [facility] [address] [address] [address] Con Santana POINT OF CARE GLUCOSEon Glucose [Mass/Vol] 145 mg/dL Critically high 74-106 [facility] Comment on above: Performed By: #### I NFLUAB #### [facility] [address] [address] [address] Con Santana Glucose [Mass/Vol] 162 mg/dL Critically high [facility]106 [facility] Comment on above: Performed By: #### E LISA JAVIER #### [facility] [address] [place] [address] Dr. Con Santana Glucose [Mass/Vol] 141 mg/dL Critically high 74-106 [facility] Comment on above: Performed By: #### C BC #### [facility] [address] [place] [address] Dr. Con Santana PROF CHEM 8 (BAS METB)on Anion gap [Moles/Vol] 16.5 mmol/L Normal [facility] Comment on above: Performed By: #### H STROPN #### [facility] [address] [place] [address] Dr. Con Santana Calcium [Mass/Vol] 7.3 mg/dL Critically low 8.5-10.1 [facility] Comment on above: Performed By: #### H STROPN #### [facility] [address] [place] [address] Dr. Con Santana Chloride [Moles/Vol] 108 mmol/L Critically high 98-107 [facility] Comment on above: Performed By: #### H STROPN #### [facility] [address] [place] [address] Dr. Con Santana CO2 [Moles/Vol] 18.5 mmol/L Critically low 21.0-32.0 [facility] Comment on above: Performed By: #### H STROPN #### [facility] [address] [address] [address] Con Santana Creatinine [Mass/Vol] 1.14 mg/dL Critically high 0.55-1.02 [facility] Comment on above: Performed By: #### H STROPN #### [facility] [address] [address] [address] Con Santana EGFR-AF WELSH 55 mL/min/1.73m2 Critically low >=60 [facility] Comment on above: Performed By: #### H STROPN #### [facility] [address] [place] [address] Dr. Con Santana EGFR-NON AF WELSH 45 mL/min/1.73m2 Critically low >=60 [facility] Comment on above: Performed By: #### H STROPN #### [facility] [address] [address] [address] Con Santana Glucose [Mass/Vol] 151 mg/dL Critically high 74-106 [facility] Comment on above: Performed By: #### H STROPN #### [facility] [address] [place] [address] Dr. Con Santana Potassium [Moles/Vol] 4.0 mmol/L Normal 3.5-5.1 [facility] Comment on above: Performed By: #### H STROPN #### [facility] [address] [address] [address] Con Santana Sodium [Moles/Vol] 139 mmol/L Normal 136-145 [facility] Comment on above: Performed By: #### H STROPN #### [facility] [address] [address] [address] Con Santana Urea nitrogen [Mass/Vol] 27.0 mg/dL Critically high 7.0-18.0 [facility] Comment on above: Performed By: #### H STROPN #### [facility] [address] [place] [address] Dr. Con Santana Urea nitrogen/Creatinine [Mass ratio] 23.7 mg/mg Normal [facility] Comment on above: Performed By: #### H STROPN #### [facility] [address] [place] [address] Dr. Con Santana XR CHEST 2 Von [...] ELEAZAR GUERRA Date: 2022-12-31 11:[address] [facility] BNPon 12-30-2022 Natriuretic peptide B (Bld) [Mass/Vol] 7840.0 pg/mL Critically high <=1,800.[address] [facility] Comment on above: Performed By: #### I NFLUAB #### [facility] [address] [place] [address] Dr. Con Santana CBC AUTO DIFFon 12-30-2022 BASO # 0.0 103/ul Normal 0.0-0.[address] [facility] Comment on above: Performed By: #### P OCGLUC #### [facility] [address] [place] [address] Dr. Con Santana Basophils/100 WBC (Bld) 0.2 % Normal 0.2-2.[address] [facility] Comment on above: Performed By: #### P OCGLUC #### [facility] [address] [place] [address] Dr. Con Santana EO # 0.0 103/ul Normal 0.0-0.[address] [facility] Comment on above: Performed By: #### P OCGLUC #### [facility] [address] [place] [address] Dr. Con Santana Eosinophils/100 WBC (Bld) 0.0 % Critically low 0.9-7.0 [facility] Comment on above: Performed By: #### P OCGLUC #### [facility] [address] [place] [address] Dr. Con Santana Erythrocyte distribution width (RBC) [Ratio] 13.6 % Normal 11.0-15.0 [facility] Comment on above: Performed By: #### P OCGLUC #### [facility] [address] [place] [address] Dr. Con Santana Hematocrit (Bld) [Volume fraction] 28.5 % Critically low 36.0-48.0 [facility] Comment on above: Performed By: #### P OCGLUC #### [facility] [address] [place] [address] Dr. Con Santana Hemoglobin (Bld) [Mass/Vol] 9.5 g/dL Critically low 12.0-16.0 [facility] Comment on above: Performed By: #### P OCGLUC #### [facility] [address] [place] [address] Dr. Con Santana IG # 0.09 10e3/ul Critically high 0.00-0.03 [facility] Comment on above: Performed By: #### P OCGLUC #### [facility] [address] [place] [address] Dr. Con Santana IG % 0.8 % Critically high 0.0-0.[address] [facility] Comment on above: Performed By: #### P OCGLUC #### [facility] [address] [place] [address] Dr. Con Santana LYMPH # 0.8 103/ul Critically low 1.2-3.8 [facility] Comment on above: Performed By: #### P OCGLUC #### [facility] [address] [place] [address] Dr. Con Santana Lymphocytes/100 WBC (Bld) 6.9 % Critically low 20.5-60.0 [facility] Comment on above: Performed By: #### P OCGLUC #### [facility] [address] [place], [place] [id number] Dr. Con Santana MANUAL DIFF REQ NO Normal [facility] Comment on above: Performed By: #### P OCGLUC #### [facility] [address] [place] [address] Dr. oCn Santana MCH (RBC) [Entitic mass] 31.3 pg Normal 26.7-34.0 [facility] Comment on above: Performed By: #### P OCGLUC #### [facility] [address] [place] [address] Dr. Con Santana MCHC (RBC) [Mass/Vol] 33.3 g/dL Normal 29.9-35.[address] [facility] Comment on above: Performed By: #### P OCGLUC #### [facility] [address] [place] [address] Dr. Con Santana MCV (RBC) [Entitic vol] 93.8 fL Normal 81.0-99.0 [facility] Comment on above: Performed By: #### P OCGLUC #### [facility] [address] [place] [address] Dr. Con Santana MONO # 0.4 103/ul Normal 0.3-0.[address] [facility] Comment on above: Performed By: #### P OCGLUC #### [facility] [address] [place] [address] Dr. Con Santana Monocytes/100 WBC (Bld) 3.1 % Normal 1.7-12.[address] [facility] Comment on above: Performed By: #### P OCGLUC #### [facility] [address] [place] [address] Dr. Con Santana NEUT # 10.4 103/ul Critically high 1.4-6.5 [facility] Comment on above: Performed By: #### P OCGLUC #### [facility] [address] [place] [address] Dr. Con Santana Neutrophils/100 WBC (Bld) 89.0 % Critically high 43.0-75.0 [facility] Comment on above: Performed By: #### P OCGLUC #### [facility] [address] [place] [address] Dr. Con Santana Platelet mean volume (Bld) [Entitic vol] 10.8 fL Normal 9.5-13.5 [facility] Comment on above: Performed By: #### P OCGLUC #### [facility] [address] [address] [address] Con Santana PLT 189 103/ul Normal 150-450 [facility] Comment on above: Performed By: #### P OCGLUC #### [facility] [address] [address] [address] Con Santana RBC 3.04 106/ul Critically low 4.20-5.[address] [facility] Comment on above: Performed By: #### P OCGLUC #### [facility] [address] [address] [address] Con Santana WBC 11.7 103/ul Critically high 4.0-11.0 [facility] Comment on above: Performed By: #### P OCGLUC #### [facility] [address] [address] [address] Con Santana POINT OF CARE GLUCOSEon 04-0 Glucose [Mass/Vol] 194 mg/dL Critically high 74-106 [facility] Comment on above: Performed By: #### C BC #### [facility] [address] [address] [address] Con Santana Glucose [Mass/Vol] 191 mg/dL Critically high 74-106 [facility] Comment on above: Performed By: #### I NFLUAB #### [facility] [address] [place] [address] Dr. Con Santana Glucose [Mass/Vol] 169 mg/dL Critically high 74-106 [facility] Comment on above: Performed By: #### P OCGLUC #### [facility] [address] [address] [address] Con Santana Glucose [Mass/Vol] 173 mg/dL Critically high 74-106 [facility] Comment on above: Performed By: #### I NFLUAB #### [facility] [address] [address] [address] Con Santana PROF CHEM 8 (BAS METB)on Anion gap [Moles/Vol] 18.8 mmol/L Normal [facility] Comment on above: Performed By: #### I NFLUAB #### [facility] [address] [place] [address] Dr. Con Santana Calcium [Mass/Vol] 7.3 mg/dL Critically low 8.5-10.1 [facility] Comment on above: Performed By: #### I NFLUAB #### [facility] [address] [address] [address] Con Santana Chloride [Moles/Vol] 109 mmol/L Critically high 98-107 [facility] Comment on above: Performed By: #### I NFLUAB #### [facility] [address] [place] [address] Dr. Con Santana CO2 [Moles/Vol] 17.3 mmol/L Critically low 21.0-32.0 [facility] Comment on above: Performed By: #### I NFLUAB #### [facility] [address] [place] [address] Dr. Con Santana Creatinine [Mass/Vol] 1.28 mg/dL Critically high 0.55-1.02 [facility] Comment on above: Performed By: #### I NFLUAB #### [facility] [address] [place] [address] Dr. Con Santana EGFR-AF WELSH 48 mL/min/1.73m2 Critically low >=60 [facility] Comment on above: Performed By: #### I NFLUAB #### [facility] [address] [address] [address] Con Santana EGFR-NON AF WELSH 40 mL/min/1.73m2 Critically low >=60 [facility] Comment on above: Performed By: #### I NFLUAB #### [facility] [address] [place] [address] Dr. Con Santana Glucose [Mass/Vol] 161 mg/dL Critically high 74-106 [facility] Comment on above: Performed By: #### I NFLUAB #### [facility] [address] [address] [address] Con Santana Potassium [Moles/Vol] 3.1 mmol/L Critically low 3.5-5.1 [facility] Comment on above: Performed By: #### I NFLUAB #### [facility] [address] [address] [address] Con Santana Sodium [Moles/Vol] 142 mmol/L Normal 136-145 [facility] Comment on above: Performed By: #### I NFLUAB #### [facility] [address] [place] [address] Dr. Con Santana Urea nitrogen [Mass/Vol] 24.0 mg/dL Critically high 7.0-18.0 [facility] Comment on above: Performed By: #### I NFLUAB #### [facility] [address] [place] [address] Dr. Con Santana Urea nitrogen/Creatinine [Mass ratio] 18.8 mg/mg Normal [facility] Comment on above: Performed By: #### I NFLUAB #### [facility] [address] [place] [address] Dr. Con Santana UA RANDOM W/MICROSCOPICon BACTERIA NONE SEEN Normal NONE SEEN [facility] Comment on above: Performed By: #### P OCGLUC #### [facility] [address] [place] [address] Dr. Con Santana Bilirubin Ql (U) Negative Normal NEGATIVE [facility] Comment on above: Performed By: #### P OCGLUC #### [facility] [address] [place] [address] Dr. Con Santana CAST NONE SEEN Normal NONE SEEN [facility] Comment on above: Performed By: #### P OCGLUC #### [facility] [address] [place] [address] Dr. Con Santana Clarity (U) CLEAR Normal CLEAR [facility] Comment on above: Performed By: #### P OCGLUC #### [facility] [address] [place] [address] Dr. Con Santana Color (U) LT. YELLOW Normal YELLOW [facility] Comment on above: Performed By: #### P OCGLUC #### [facility] [address] [address] [address] Con Santana Crystals LM Nom (Urine sed) NONE SEEN Normal NONE SEEN [facility] Comment on above: Performed By: #### P OCGLUC #### [facility] [address] [address] [address] Con Santana Epithelial cells LM Ql (Urine sed) FEW Abnormal NONE SEEN /RARE [facility] Comment on above: Performed By: #### P OCGLUC #### [facility] [address] [address] [address] Con Santana Glucose Ql (U) Negative Normal NEGATIVE [facility] Comment on above: Performed By: #### P OCGLUC #### [facility] [address] [place] [address] Dr. Con Santaan Hemoglobin Ql (U) Negative Normal NEGATIVE [facility] Comment on above: Performed By: #### P OCGLUC #### [facility] [address] [address] [address] Con Santana Ketones Ql (U) Negative Normal NEGATIVE [facility] Comment on above: Performed By: #### P OCGLUC #### [facility] [address] [address] [address] Con Santana LEUKOCYTES TRACE Abnormal NEGATIVE [facility] Comment on above: Performed By: #### P OCGLUC #### [facility] [facility] [address] [address] [address] Con Santana MUCOUS NONE SEEN Normal NONE SEEN [facility] Comment on above: Performed By: #### P OCGLUC #### [facility] [address] [address] [address] Con Santana Nitrite Ql (U) Negative Normal NEGATIVE [facility] Comment on above: Performed By: #### P OCGLUC #### [facility] [address] [place] [address] Dr. Con Santana pH (U) 5.5 [pH] Normal 5-[address] [facility] Comment on above: Performed By: #### P OCGLUC #### [facility] [address] [address] [address] Con Santana RBC 0-2 Normal 0-[address] [facility] Comment on above: Performed By: #### P OCGLUC #### [facility] [address] [address] [address] Con Santana SPEC GRAVITY 1.010 Normal 1.005-<=1.025 [facility] Comment on above: Performed By: #### P OCGLUC #### [facility] [address] [address] [address] Con Santana UA PROTEIN Negative Normal NEGATIVE/ TRACE [facility] Comment on above: Performed By: #### P OCGLUC #### [facility] [address] [place] [address] Dr. Con Santana Urobilinogen Qn (U) 0.2 {Godfrey'U}/dL Normal 0.2 - 1. [address] [facility] Comment on above: Performed By: #### P OCGLUC #### [facility] [address] [address] [address] Con Santana WBC 2-5 Abnormal NONE SEEN [facility] Comment on above: Performed By: #### P OCGLUC #### [facility] [address] [place] [address] Dr. Con Santana XR CHEST 2 Von [...] ELEAZAR GUERRA Date: 2022-12-30 11:[address] [facility] BNPon 12-29-2022 Natriuretic peptide B (Bld) [Mass/Vol] 4120.0 pg/mL Critically high <=1,800.[address] [facility] Comment on above: Performed By: #### E LISA JAVIER #### [facility] [address] [place] [address] Dr. Con Santana Natriuretic peptide B (Bld) [Mass/Vol] 3274.0 pg/mL Critically high <=1,800.[address] [facility] Comment on above: Performed By: #### P OCGLUC #### [facility] [address] [place] [address] Dr. Con Santana CBC AUTO DIFFon 12-29-2022 BASO # 0.0 103/ul Normal 0.0-0.1 [facility] Comment on above: Performed By: #### C BC #### [facility] [address] [place] [address] Dr. Con Santana Basophils/100 WBC (Bld) 0.0 % Critically low 0.2-2.0 [facility] Comment on above: Performed By: #### C BC #### [facility] [address] [place] [address] Dr. Con Santana EO # 0.0 103/ul Normal 0.0-0.[address] [facility] Comment on above: Performed By: #### C BC #### [facility] [address] [place] [address] Dr. Con Santana Eosinophils/100 WBC (Bld) 0.2 % Critically low 0.9-7.[address] [facility] Comment on above: Performed By: #### C BC #### [facility] [address] [place] [address] Dr. Con Santana Erythrocyte distribution width (RBC) [Ratio] 13.6 % Normal 11.0-15.0 [facility] Comment on above: Performed By: #### C BC #### [facility] [address] [place] [address] Dr. Con Santana Hematocrit (Bld) [Volume fraction] 29.8 % Critically low 36.0-48.0 [facility] Comment on above: Performed By: #### C BC #### [facility] [address] [address] [address] Con Santana Hemoglobin (Bld) [Mass/Vol] 9.5 g/dL Critically low 12.0-16.0 [facility] Comment on above: Performed By: #### C BC #### [facility] [address] [address] [address] Con Santana IG # 0.05 10e3/ul Critically high 0.00-0.03 [facility] Comment on above: Performed By: #### C BC #### [facility] [address] [address] [address] Con Santana IG % 0.9 % Critically high 0.0-0.[address] [facility] Comment on above: Performed By: #### C BC #### [facility] [address] [address] [address] Con Santana LYMPH # 0.7 103/ul Critically low 1.2-3.8 [facility] Comment on above: Performed By: #### C BC #### [facility] [address] [address] [address] Con Santana Lymphocytes/100 WBC (Bld) 13.0 % Critically low 20.5-60.0 [facility] Comment on above: Performed By: #### C BC #### [facility] [address] [place] [address] Dr. Con Santana MANUAL DIFF REQ NO Normal [facility] Comment on above: Performed By: #### C BC #### [facility] [address] [address] [address] Con Santana MCH (RBC) [Entitic mass] 30.5 pg Normal 26.7-34.0 [facility] Comment on above: Performed By: #### C BC #### [facility] [address] [place] [address] Dr. Con Santana MCHC (RBC) [Mass/Vol] 31.9 g/dL Normal 29.9-35.2 [facility] Comment on above: Performed By: #### C BC #### [facility] [address] [address] [address] Con Santana MCV (RBC) [Entitic vol] 95.8 fL Normal 81.0-99.0 [facility] Comment on above: Performed By: #### C BC #### [facility] [address] [address] [address] Con Santana MONO # 0.1 103/ul Critically low 0.3-0.8 [facility] Comment on above: Performed By: #### C BC #### [facility] [address] [address] [address] Con Santana Monocytes/100 WBC (Bld) 1.5 % Critically low 1.7-12.0 [facility] Comment on above: Performed By: #### C BC #### [facility] [address] [address] [address] Con Santana NEUT # 4.5 103/ul Normal 1.4-6.5 [facility] Comment on above: Performed By: #### C BC #### [facility] [address] [address] [address] Con Santana Neutrophils/100 WBC (Bld) 84.4 % Critically high 43.0-75.0 [facility] Comment on above: Performed By: #### C BC #### [facility] [address] [address] [address] Con Santana Platelet mean volume (Bld) [Entitic vol] 10.3 fL Normal 9.5-13.5 [facility] Comment on above: Performed By: #### C BC #### [facility] [address] [address] [address] Con Santana PLT 178 103/ul Normal 150-[address] [facility] Comment on above: Performed By: #### C BC #### [facility] [address] [address] [address] Con Santana RBC 3.11 106/ul Critically low 4.20-5.[address] [facility] Comment on above: Performed By: #### C BC #### [facility] [address] [address] [address] Con Santana WBC 5.3 103/ul Normal 4.0-11.0 [facility] Comment on above: Performed By: #### C BC #### [facility] [address] [address] [address] Con Santana BASO # 0.0 103/ul Normal 0.0-0.[address] [facility] Comment on above: Performed By: #### C BC #### [facility] [address] [place] [address] Dr. Con Santana Basophils/100 WBC (Bld) 0.1 % Critically low 0.2-2.0 [facility] Comment on above: Performed By: #### C BC #### [facility] [address] [place] [address] Dr. Con Santana EO # 0.4 103/ul Normal 0.0-0.7 [facility] Comment on above: Performed By: #### C BC #### [facility] [address] [place] [address] Dr. Con Santana Eosinophils/100 WBC (Bld) 5.9 % Normal 0.9-7.0 [facility] Comment on above: Performed By: #### C BC #### [facility] [address] [place] [address] Dr. Con Santana Erythrocyte distribution width (RBC) [Ratio] 13.5 % Normal 11.0-15.0 [facility] Comment on above: Performed By: #### C BC #### [facility] [address] [place] [address] Dr. Con Santana Hematocrit (Bld) [Volume fraction] 29.4 % Critically low 36.0-48.0 [facility] Comment on above: Performed By: #### C BC #### [facility] [address] [place] [address] Dr. Con Santana Hemoglobin (Bld) [Mass/Vol] 9.5 g/dL Critically low 12.0-16.0 [facility] Comment on above: Performed By: #### C BC #### [facility] [address] [address] [address] Con Santana IG # 0.04 10e3/ul Critically high 0.00-0.03 [facility] Comment on above: Performed By: #### C BC #### [facility] [address] [place] [address] Dr. Con Santana IG % 0.6 % Critically high 0.0-0.[address] [facility] Comment on above: Performed By: #### C BC #### [facility] [address] [place] [address] Dr. Con Santana LYMPH # 1.1 103/ul Critically low 1.2-3.8 [facility] Comment on above: Performed By: #### C BC #### [facility] [address] [place] [address] Dr. Con Santana Lymphocytes/100 WBC (Bld) 15.7 % Critically low 20.5-60.0 [facility] Comment on above: Performed By: #### C BC #### [facility] [address] [place] [address] Dr. Con Santana MANUAL DIFF REQ NO Normal [facility] Comment on above: Performed By: #### C BC #### [facility] [address] [place] [address] Dr. Con Santana MCH (RBC) [Entitic mass] 31.3 pg Normal 26.7-34.0 [facility] Comment on above: Performed By: #### C BC #### [facility] [address] [place] [address] Dr. Con Santana MCHC (RBC) [Mass/Vol] 32.3 g/dL Normal 29.9-35.2 [facility] Comment on above: Performed By: #### C BC #### [facility] [address] [place] [address] Dr. Con Santana MCV (RBC) [Entitic vol] 96.7 fL Normal 81.0-99.0 [facility] Comment on above: Performed By: #### C BC #### [facility] [address] [place] [address] Dr. Con Santana MONO # 0.4 103/ul Normal 0.3-0.8 [facility] Comment on above: Performed By: #### C BC #### [facility] [address] [place] [address] Dr. Con Santana Monocytes/100 WBC (Bld) 5.9 % Normal 1.7-12.0 [facility] Comment on above: Performed By: #### C BC #### [facility] [address] [place] [address] Dr. Con Santana NEUT # 5.0 103/ul Normal 1.4-6.[address] [facility] Comment on above: Performed By: #### C BC #### [facility] [address] [place] [address] Dr. Con Santana Neutrophils/100 WBC (Bld) 71.8 % Normal 43.0-75.0 [facility] Comment on above: Performed By: #### C BC #### [facility] [address] [place] [address] Dr. Con Santana Platelet mean volume (Bld) [Entitic vol] 10.0 fL Normal 9.5-13.[address] [facility] Comment on above: Performed By: #### C BC #### [facility] [address] [place] [address] Dr. Con Santana PLT 173 103/ul Normal 150-[address] [facility] Comment on above: Performed By: #### C BC #### [facility] [address] [place] [address] Dr. Con Santana RBC 3.04 106/ul Critically low 4.20-5.40 [facility] Comment on above: Performed By: #### C BC #### [facility] [address] [place] [address] Dr. Con Santana WBC 7.0 103/ul Normal 4.0-11.[address] [facility] Comment on above: Performed By: #### C BC #### [facility] [address] [place] [address] Dr. Con Santana ECHOCARDIO M/2D COMPLETEon 0 12-29-2022 ECHOCARDIO M/2D COMPLETE Patient: SALOME DOMINGUEZ Exam Date: 12/29/2022 : 1940 Gender:F Ordering : SIVA CROSS Admission #: [id number] Family : DR MATHIASLAS MANUEL . Order #: [id number] CLICK HERE TO VIEW EXAM ECHOCARDIOGRAM REPORT [...] Varma M.D. on 01/01/2023 at 09:24 Normal [facility] LACTATE/LACTIC ACIDon 2022 Lactate [Moles/Vol] 0.6 mmol/L Normal 0.4-2.0 [facility] Comment on above: Performed By: #### C BC #### [facility] [address] [place] [address] Dr. Con Santana PH VENOUS BLOODon 12-29-2022 PCO2 VENOUS 34.6 mmHg Critically low 40.0-52.[address] [facility] Comment on above: Performed By: #### C BC #### [facility] [address] [address] [address] Con Santana pH VENOUS 7.343 Normal 7.330-7.430 [facility] Comment on above: Performed By: #### C BC #### [facility] [address] [place] [address] Dr. oCn Santana POINT OF CARE GLUCOSEon Glucose [Mass/Vol] 217 mg/dL Critically high -106 [facility] Comment on above: Performed By: #### C BC #### [facility] [address] [address] [address] Con Santana Glucose [Mass/Vol] 199 mg/dL Critically high -106 [facility] Comment on above: Performed By: #### C BC #### [facility] [address] [address] [address] Con Santana Glucose [Mass/Vol] 202 mg/dL Critically high -106 [facility] Comment on above: Performed By: #### P OCGLUC #### [facility] [address] [address] [address] Con Santana PROF 14(COMP METB)on 023 Albumin [Mass/Vol] 2.6 g/dL Critically low 3.4-5.0 [facility] Comment on above: Performed By: #### P OCGLUC #### [facility] [address] [place] [address] Dr. Con Santana Albumin/Globulin [Mass ratio] 1.1 {ratio} Normal [facility] Comment on above: Performed By: #### P OCGLUC #### [facility] [address] [address] [address] Con Santana ALP [Catalytic activity/Vol] 67 U/L Normal 46-116 [facility] Comment on above: Performed By: #### P OCGLUC #### [facility] [address] [address] [address] Con Santana ALT [Catalytic activity/Vol] 69 U/L Critically high 14-59 [facility] Comment on above: Performed By: #### P OCGLUC #### [facility] [address] [address] [address] Con Santana Anion gap [Moles/Vol] 15.0 mmol/L Normal [facility] Comment on above: Performed By: #### P OCGLUC #### [facility] [address] [address] [address] Con Santana AST [Catalytic activity/Vol] 24 U/L Normal 15-37 [facility] Comment on above: Performed By: #### P OCGLUC #### [facility] [address] [address] [address] Con Santana Bilirubin [Mass/Vol] 0.3 mg/dL Normal 0.2-1.0 [facility] Comment on above: Performed By: #### P OCGLUC #### [facility] [address] [address] [address] Con Santana Calcium [Mass/Vol] 7.4 mg/dL Critically low 8.5-10.1 [facility] Comment on above: Performed By: #### P OCGLUC #### [facility] [address] [address] [address] Con Santana Chloride [Moles/Vol] 110 mmol/L Critically high 98-107 [facility] Comment on above: Performed By: #### P OCGLUC #### [facility] [address] [address] [address] Con Santana CO2 [Moles/Vol] 21.1 mmol/L Normal 21.0-32.0 [facility] Comment on above: Performed By: #### P OCGLUC #### [facility] [address] [address] [address] Con Santana Creatinine [Mass/Vol] 0.79 mg/dL Normal 0.55-1.02 [facility] Comment on above: Performed By: #### P OCGLUC #### [facility] [address] [address] [address] Con Santana EGFR-AF WELSH >60 Normal >=60 [facility] Comment on above: Performed By: #### P OCGLUC #### [facility] [address] [address] [address] Con Satnana EGFR-NON AF WELSH >60 Normal >=60 [facility] Comment on above: Performed By: #### P OCGLUC #### [facility] [address] [address] [address] Con Santana Globulin (S) [Mass/Vol] 2.3 g/dL Normal [facility] Comment on above: Performed By: #### P OCGLUC #### [facility] [address] [address] [address] Con Santana Glucose [Mass/Vol] 115 mg/dL Critically high 74-106 [facility] Comment on above: Performed By: #### P OCGLUC #### [facility] [address] [address] [address] Con Santana Potassium [Moles/Vol] 4.1 mmol/L Normal 3.5-5.1 [facility] Comment on above: Performed By: #### P OCGLUC #### [facility] [address] [address] [address] Con Santana Protein [Mass/Vol] 4.9 g/dL Critically low 6.4-8.2 [facility] Comment on above: Performed By: #### P OCGLUC #### [facility] [address] [address] [address] Con Santana Sodium [Moles/Vol] 142 mmol/L Normal 136-145 [facility] Comment on above: Performed By: #### P OCGLUC #### [facility] [address] [place] [address] Dr. Con Santana Urea nitrogen [Mass/Vol] 19.0 mg/dL Critically high 7.0-18.0 [facility] Comment on above: Performed By: #### P OCGLUC #### [facility] [address] [place] [address] Dr. Con Santana Urea nitrogen/Creatinine [Mass ratio] 24.1 mg/mg Normal [facility] Comment on above: Performed By: #### P OCGLUC #### [facility] [address] [place] [address] Dr. Con Santana PROF CHEM 8 (BAS METB)on Anion gap [Moles/Vol] 13.5 mmol/L Normal [facility] Comment on above: Performed By: #### TIM INTERIANORO #### [facility] [address] [place] [address] Dr. Con Santana Calcium [Mass/Vol] 7.6 mg/dL Critically low 8.5-10.1 [facility] Comment on above: Performed By: #### TIM INTERIANORO #### [facility] [address] [place] [address] Dr. Con Santana Chloride [Moles/Vol] 110 mmol/L Critically high 98-107 [facility] Comment on above: Performed By: #### Anaya JAVIER UMICRO #### [facility] [address] [place] [address] Dr. Con Santana CO2 [Moles/Vol] 18.7 mmol/L Critically low 21.0-32.0 [facility] Comment on above: Performed By: #### TIM INTERIANORO #### [facility] [address] [place] [address] Dr. Con Santana Creatinine [Mass/Vol] 0.79 mg/dL Normal 0.55-1.02 [facility] Comment on above: Performed By: #### Anaya JAVIER UMICRO #### [facility] [address] [place] [address] Dr. Con Santana EGFR-AF WELSH >60 Normal >=60 [facility] Comment on above: Performed By: #### LISA INTERIANO #### [facility] [address] [place] [address] Dr. Con Santana EGFR-NON AF WELSH >60 Normal >=60 [facility] Comment on above: Performed By: #### LISA INTERIANO #### [facility] [address] [place] [address] Dr. Con Santana Glucose [Mass/Vol] 155 mg/dL Critically high 74-106 [facility] Comment on above: Performed By: #### LISA INTERIANO #### [facility] [address] [place] [address] Dr. Con Santana Potassium [Moles/Vol] 4.2 mmol/L Normal 3.5-5.1 [facility] Comment on above: Performed By: #### LISA INTERIANO #### [facility] [address] [place] [address] Dr. Con Santana Sodium [Moles/Vol] 138 mmol/L Normal 136-145 [facility] Comment on above: Performed By: #### LISA INTERIANO #### [facility] [address] [place] [address] Dr. Con Santana Urea nitrogen [Mass/Vol] 21.0 mg/dL Critically high 7.0-18.0 [facility] Comment on above: Performed By: #### LISA INTERIANO #### [facility] [address] [place] [address] Dr. Con Santana Urea nitrogen/Creatinine [Mass ratio] 26.6 mg/mg Normal [facility] Comment on above: Performed By: #### TIM INTERIANORO #### [facility] [address] [place] [address] Dr. Con Santana PROTIMEon 12-29-2022 INR Coag (PPP) [Relative time] 1.00 {INR} Normal [facility] Comment on above: Performed By: #### P OCGLUC #### [facility] [address] [place] [address] Dr. Con Santana INR GUIDELINES SEE BELOW Normal [facility] Comment on above: Result Comment: CANDELARIA RED INR: 2.0 - 3.0 CONDITIONS NOT LISTED BELOW 2.5 - 3.5 FOR PROSTHETIC HEART VALVE REPLACEMENT 2.5 - 3.5 RECURRENT THROMBOSIS Performed By: #### P OCGLUC #### [facility] [address] [place] [address] Dr. Con Santana PT Coag (PPP) [Time] 10.6 s Normal 9.0-11.[address] [facility] Comment on above: Performed By: #### P OCGLUC #### [facility] [address] [place] [address] Dr. Con Santana PTTon 12-29-2022 aPTT Coag (Bld) [Time] 28.2 s Normal 22.3-36.[address] [facility] Comment on above: Performed By: #### I NFLUAB #### [facility] [address] [place] [address] Dr. Con Santana TROPONIN, HIGH SENSITIVITYon 12-29-2022 HSTROP 16.0 pg/mL Normal 4.0-51.[address] [facility] Comment on above: Result Comment: CUT- OFF POINTS HAVE BEEN ESTABLISHED BASED ON THE FOURTH UNIVERSAL DEFINITIONS OF MYOCARDIAL INFARCTION. THE UPPER REFERENCE LIMIT (URL) OF TROPONIN, DEFINED THE 99TH PERCENTILE OF cTnI DISTRIBUTION IN A REFERENCE POPULATION, HAS BEEN CONFIRMED THE DECISION THRESHOLD FOR ND DIAGNOSIS. Performed By: #### H STROPN #### [facility] [address] [place] [address] Dr. Con Santana HSTROP 23.6 pg/mL Normal 4.0-51.[address] [facility] Comment on above: Result Comment: CUT- OFF POINTS HAVE BEEN ESTABLISHED BASED ON THE FOURTH UNIVERSAL DEFINITIONS OF MYOCARDIAL INFARCTION. THE UPPER REFERENCE LIMIT (URL) OF TROPONIN, DEFINED THE 99TH PERCENTILE OF cTnI DISTRIBUTION IN A REFERENCE POPULATION, HAS BEEN CONFIRMED THE DECISION THRESHOLD FOR ND DIAGNOSIS. Performed By: #### P OCGLUC #### [facility] [address] [place] [address] Dr. Con Santana XR CHEST 1 Von [...] TRINI CISNEROS Date: 2022-12-28 22:[address] [facility]on SARS-CoV-2 (COVID-19) RNA JEANE+probe Ql (Unsp spec) Not detected Normal NOT DETECTED [facility] Comment on above: Result Comment: When [...] for this test is supported by the Personal Injury Specialist of Health and Human Service's declaration that [...] used). Performed By: #### C VDTBH #### [facility] [address] [place] [address] Dr. Con Santana PH VENOUS BLOODon 12-28-2022 PCO2 VENOUS 40.4 mmHg Normal 40.0-52.0 [facility] Comment on above: Performed By: #### I NFLUAB #### [facility] [address] [place] [address] Dr. Con Santana pH VENOUS 7.297 Critically low 7.330-7.430 [facility] Comment on above: Performed By: #### I NFLUAB #### [facility] [address] [place] [address] Dr. Con Santana CBC W MANUAL DIFFon 12-23-19 23 ATYPICAL LYMPH # Normal [facility] Comment on above: Performed By: #### C BC #### [facility] [address] [place] [address] Dr. Con Santana ATYPICAL LYMPH % Normal [facility] Comment on above: Performed By: #### C BC #### [facility] [address] [place] [address] Dr. Con Santana BAND # 0.0 103/ul Normal 0.0-0.3 [facility] Comment on above: Performed By: #### C BC #### [facility] [address] [place] [address] Dr. Con Santana BAND % 0 % Normal 0-5 [facility] Comment on above: Performed By: #### C BC #### [facility] [address] [place] [address] Dr. Con Santana BASOM # 0.00 103/ul Normal 0.00-0.10 [facility] Comment on above: Performed By: #### C BC #### [facility] [address] [place] [address] Dr. Con Santana BASOM % 0.0 % Critically low 0.2-2.0 [facility] Comment on above: Performed By: #### C BC #### [facility] [address] [place] [address] Dr. Con Santana BLAST # Normal [facility] Comment on above: Performed By: #### C BC #### [facility] [address] [place] [address] Dr. Con Santana BLAST % Normal [facility] Comment on above: Performed By: #### C BC #### [facility] [address] [place] [address] Dr. Con Santana CORRECTED WBC Normal 4.0-11.0 [facility] Comment on above: Performed By: #### C BC #### [facility] [address] [address] [address] Con Santana EOS # 0.00 103/ul Normal 0.00-0.70 [facility] Comment on above: Performed By: #### C BC #### [facility] [address] [address] [address] Con Santana EOS% 0.0 % Critically low 0.9-7.0 [facility] Comment on above: Performed By: #### C BC #### [facility] [address] [address] [address] Con Santana HCT 31.2 % Critically low 36.0-48.0 [facility] Comment on above: Performed By: #### C BC #### [facility] [address] [address] [address] Con Santana HGB 10.2 g/dl Critically low 12.0-16.0 [facility] Comment on above: Performed By: #### C BC #### [facility] [address] [address] [address] Con Santana LYMPHM # 0.32 103/ul Critically low 1.20-3.[address] [facility] Comment on above: Performed By: #### C BC #### [facility] [address] [address] [address] Con Santana LYMPHM% 3.0 % Critically low 20.5-60.0 [facility] Comment on above: Performed By: #### C BC #### [facility] [address] [address] [address] Con Santana MCH 30.7 pg Normal 26.7-34.[address] [facility] Comment on above: Performed By: #### C BC #### [facility] [address] [address] [address] Con Santana MCHC 32.7 g/dl Normal 29.9-35.[address] [facility] Comment on above: Performed By: #### C BC #### [facility] [address] [place] [address] Dr. Con Santana MCV 94.0 fL Normal 81.0-99.0 [facility] Comment on above: Performed By: #### C BC #### [facility] [address] [place] [address] Dr. Con Santana METAMYELOCYTE # Normal [facility] Comment on above: Performed By: #### C BC #### [facility] [address] [place] [address] Dr. Con Santana METAMYELOCYTE % Normal [facility] Comment on above: Performed By: #### C BC #### [facility] [address] [place] [address] Dr. Con Santana MONOM# 0.11 103/ul Critically low 0.30-0.[address] [facility] Comment on above: Performed By: #### C BC #### [facility] [address] [place] [address] Dr. Con Santana MONOM% 1.0 % Critically low 1.7-12.0 [facility] Comment on above: Performed By: #### C BC #### [facility] [address] [place] [address] Dr. Con Santana MPV 10.6 fL Normal 9.5-13.5 [facility] Comment on above: Performed By: #### C BC #### [facility] [address] [place] [address] Dr. Con Santana MYELOCYTE # Normal [facility] Comment on above: Performed By: #### C BC #### [facility] [address] [place] [address] Dr. Con Santana MYELOCYTE % Normal [facility] Comment on above: Performed By: #### C BC #### [facility] [address] [place] [address] Dr. Con Santana NRBC Normal [facility] Comment on above: Performed By: #### C BC #### [facility] [address] [place] [address] Dr. Con Santana PLT 242 103/ul Normal 150-450 [facility] Comment on above: Performed By: #### C BC #### [facility] [address] [address] [address] Con Santana RBC 3.32 106/ul Critically low 4.20-5.[address] [facility] Comment on above: Performed By: #### C BC #### [facility] [address] [address] [address] Con Santana RDW 13.2 % Normal 11.0-15.0 [facility] Comment on above: Performed By: #### C BC #### [facility] [address] [address] [address] Con Santana SEG # 10.18 103/ul Critically high 1.40-6.50 [facility] Comment on above: Performed By: #### C BC #### [facility] [address] [address] [address] Con Santana SEG % 96.0 % Critically high 43.0-75.[address] [facility] Comment on above: Performed By: #### C BC #### [facility] [address] [address] [address] Con Santana WBC 10.6 103/ul Normal 4.0-11.0 [facility] Comment on above: Performed By: #### C BC #### [facility] [address] [address] [address] Con Santana POINT OF CARE GLUCOSEon 11-27 Glucose [Mass/Vol] 139 mg/dL Critically high 74-106 [facility] Comment on above: Performed By: #### I NFLUAB #### [facility] [address] [address] [address] Con Santana Glucose [Mass/Vol] 151 mg/dL Critically high -106 [facility] Comment on above: Performed By: #### I NFLUAB #### [facility] [address] [address] [address] Con Santana Glucose [Mass/Vol] 200 mg/dL Critically high -106 [facility] Comment on above: Performed By: #### P OCGLUC #### [facility] [address] [address] [address] Con Santana PROF CHEM 8 (BAS METB)on Anion gap [Moles/Vol] 17.1 mmol/L Normal [facility] Comment on above: Performed By: #### P OCGLUC #### [facility] [address] [address] [address] Con Santana Calcium [Mass/Vol] 7.7 mg/dL Critically low 8.5-10.1 [facility] Comment on above: Performed By: #### P OCGLUC #### [facility] [address] [address] [address] Con Santana Chloride [Moles/Vol] 111 mmol/L Critically high 98-107 [facility] Comment on above: Performed By: #### P OCGLUC #### [facility] [address] [place] [address] Dr. Con Santana CO2 [Moles/Vol] 17.1 mmol/L Critically low 21.0-32.0 [facility] Comment on above: Performed By: #### P OCGLUC #### [facility] [address] [place] [address] Dr. Con Santana Creatinine [Mass/Vol] 1.46 mg/dL Critically high 0.55-1.02 [facility] Comment on above: Performed By: #### P OCGLUC #### [facility] [address] [place] [address] Dr. Con Santana EGFR-AF WELSH 41 mL/min/1.73m2 Critically low >=60 [facility] Comment on above: Performed By: #### P OCGLUC #### [facility] [address] [place] [address] Dr. Con Santana EGFR-NON AF WELSH 34 mL/min/1.73m2 Critically low >=60 [facility] Comment on above: Performed By: #### P OCGLUC #### [facility] [address] [place] [address] Dr. Con Santana Glucose [Mass/Vol] 167 mg/dL Critically high 74-106 [facility] Comment on above: Performed By: #### P OCGLUC #### [facility] [address] [address] [address] Con Santana Potassium [Moles/Vol] 3.2 mmol/L Critically low 3.5-5.1 [facility] Comment on above: Performed By: #### P OCGLUC #### [facility] [address] [address] [address] Con Santana Sodium [Moles/Vol] 142 mmol/L Normal 136-145 [facility] Comment on above: Performed By: #### P OCGLUC #### [facility] [address] [address] [address] Con Santana Urea nitrogen [Mass/Vol] 40.0 mg/dL Critically high 7.0-18.0 [facility] Comment on above: Performed By: #### P OCGLUC #### [facility] [address] [place] [address] Dr. Con Santana Urea nitrogen/Creatinine [Mass ratio] 27.4 mg/mg Normal [facility] Comment on above: Performed By: #### P OCGLUC #### [facility] [address] [place] [address] Dr. Con Santana XR CHEST 1 Von [...] BRINA HENRY Date: 2022-12-22 07:[address] [facility] POINT OF CARE GLUCOSEon 11-27 Glucose [Mass/Vol] 195 mg/dL Critically high 74-106 [facility] Comment on above: Performed By: #### P OCGLUC #### [facility] [address] [place] [address] Dr. Con Santana Glucose [Mass/Vol] 174 mg/dL Critically high 74-106 [facility] Comment on above: Performed By: #### C BC #### [facility] [address] [address] [address] Con Santana Glucose [Mass/Vol] 148 mg/dL Critically high 74-106 [facility] Comment on above: Performed By: #### C BC #### [facility] [address] [place] [address] Dr. Con Santana BNPon 12-20-2022 Natriuretic peptide B (Bld) [Mass/Vol] 1276.0 pg/mL Normal <=1,800.0 [facility] Comment on above: Performed By: #### H STROPN #### [facility] [address] [place] [address] Dr. Con Santana CARDIAC MAXIMILIANO ADMITon 023 CK [Catalytic activity/Vol] 101 U/L Normal 26-192 [facility] Comment on above: Performed By: #### H STROPN #### [facility] [address] [place] [address] Dr. Con Santana CK.MB [Mass/Vol] 1.61 ng/mL Normal <=3.60 [facility] Comment on above: Performed By: #### H STROPN #### [facility] [address] [place] [address] Dr. Con Santana HSTROP 19.8 pg/mL Normal 4.0-51.3 [facility] Comment on above: Result Comment: CUT- OFF POINTS HAVE BEEN ESTABLISHED BASED ON THE FOURTH UNIVERSAL DEFINITIONS OF MYOCARDIAL INFARCTION. THE UPPER REFERENCE LIMIT (URL) OF TROPONIN, DEFINED THE 99TH PERCENTILE OF cTnI DISTRIBUTION IN A REFERENCE POPULATION, HAS BEEN CONFIRMED THE DECISION THRESHOLD FOR ND DIAGNOSIS. Performed By: #### H STROPN #### [facility] [address] [address] [address] Con Santana RAMONA 76 ng/mL Normal 9-[address] [facility] Comment on above: Performed By: #### H STROPN #### [facility] [address] [address] [address] Con Santana CBC AUTO DIFFon 12-20-2022 BASO # 0.1 103/ul Normal 0.0-0.1 [facility] Comment on above: Performed By: #### P OCGLUC #### [facility] [address] [address] [address] Con Santana Basophils/100 WBC (Bld) 0.9 % Normal 0.2-2.0 [facility] Comment on above: Performed By: #### P OCGLUC #### [facility] [address] [place] [address] Dr. Con Santana EO # 0.8 103/ul Critically high 0.0-0.[address] [facility] Comment on above: Performed By: #### P OCGLUC #### [facility] [address] [address] [address] Con Santana Eosinophils/100 WBC (Bld) 12.8 % Critically high 0.9-7.0 [facility] Comment on above: Performed By: #### P OCGLUC #### [facility] [address] [place] [address] Dr. Con Santana Erythrocyte distribution width (RBC) [Ratio] 13.0 % Normal 11.0-15.0 [facility] Comment on above: Performed By: #### P OCGLUC #### [facility] [address] [place] [address] Dr. Con Santana Hematocrit (Bld) [Volume fraction] 40.9 % Normal 36.0-48.[address] [facility] Comment on above: Performed By: #### P OCGLUC #### [facility] [address] [place] [address] Dr. Con Santana Hemoglobin (Bld) [Mass/Vol] 13.3 g/dL Normal 12.0-16.0 [facility] Comment on above: Performed By: #### P OCGLUC #### [facility] [address] [address] [address] Con Santana IG # 0.01 10e3/ul Normal 0.00-0.03 [facility] Comment on above: Performed By: #### P OCGLUC #### [facility] [address] [address] [address] Con Santana IG % 0.2 % Normal 0.0-0.5 [facility] Comment on above: Performed By: #### P OCGLUC #### [facility] [address] [address] [address] Con Santana LYMPH # 3.3 103/ul Normal 1.2-3.8 [facility] Comment on above: Performed By: #### P OCGLUC #### [facility] [address] [place] [address] Dr. Con Santana Lymphocytes/100 WBC (Bld) 51.5 % Normal 20.5-60.0 [facility] Comment on above: Performed By: #### P OCGLUC #### [facility] [address] [address] [address] Con Santana MANUAL DIFF REQ NO Normal [facility] Comment on above: Performed By: #### P OCGLUC #### [facility] [address] [place] [address] Dr. Con Santana MCH (RBC) [Entitic mass] 31.3 pg Normal 26.7-34.0 [facility] Comment on above: Performed By: #### P OCGLUC #### [facility] [address] [address] [address] Con Santana MCHC (RBC) [Mass/Vol] 32.5 g/dL Normal 29.9-35.2 [facility] Comment on above: Performed By: #### P OCGLUC #### [facility] [address] [place] [address] Dr. Con Santana MCV (RBC) [Entitic vol] 96.2 fL Normal 81.0-99.0 [facility] Comment on above: Performed By: #### P OCGLUC #### [facility] [address] [address] [address] Con Santana MONO # 0.5 103/ul Normal 0.3-0.8 [facility] Comment on above: Performed By: #### P OCGLUC #### [facility] [address] [address] [address] Con Santana Monocytes/100 WBC (Bld) 7.0 % Normal 1.7-12.[address] [facility] Comment on above: Performed By: #### P OCGLUC #### [facility] [address] [place] [address] Dr. Con Santana NEUT # 1.8 103/ul Normal 1.4-6.5 [facility] Comment on above: Performed By: #### P OCGLUC #### [facility] [address] [place] [address] Dr. Con Santana Neutrophils/100 WBC (Bld) 27.6 % Critically low 43.0-75.0 [facility] Comment on above: Performed By: #### P OCGLUC #### [facility] [address] [place] [address] Dr. Con Santana Platelet mean volume (Bld) [Entitic vol] 9.9 fL Normal 9.5-13.5 [facility] Comment on above: Performed By: #### P OCGLUC #### [facility] [address] [place] [address] Dr. Con Santana PLT 286 103/ul Normal 150-[address] [facility] Comment on above: Performed By: #### P OCGLUC #### [facility] [address] [place] [address] Dr. Con Santana RBC 4.25 106/ul Normal 4.20-5.[address] [facility] Comment on above: Performed By: #### P OCGLUC #### [facility] [address] [place] [address] Dr. Con Santana WBC 6.5 103/ul Normal 4.0-11.[address] [facility] Comment on above: Performed By: #### P OCGLUC #### [facility] [address] [place] [address] Dr. Con Santana CULTURE BLOODon 12-20-2022 Microscopic examination of blood, culture Culture Observations: NO GROWTH AT 5 DAYS. Normal [facility] Comment on above: Performed By: #### B LDCX2 #### [facility] [address] [place] [address] Dr. Con Santana Microscopic examination of blood, culture Culture Observations: NO GROWTH AT [address] [facility] Comment on above: Performed By: #### C BC #### [facility] [address] [address] [address] Con Santana CULTURE URINEon 12-20-2022 CULTURE URINE Culture Observations : LIGHT GROWTH OF MIXED GENITAL [place]. NO POTENTIAL PATHOGENS SEEN. Normal [facility] Comment on above: Performed By: #### C BC #### [facility] [address] [place] [address] Dr. Con Santana Covid-19 PCR (CVDTB)on 11-27 SARS-CoV-2 (COVID-19) RNA JEANE+probe Ql (Unsp spec) Not detected Normal NOT DETECTED [facility] Comment on above: Result Comment: When [...] for this test is supported by the [place] of [employer]'s declaration that [...] used). Performed By: #### C BC #### [facility] [address] [place] [address] Dr. Con Santana ER URINE PROFILEon 03-25-202 3 Bilirubin Ql (U) Negative Normal NEGATIVE [facility] Comment on above: Performed By: #### Anaya JAVIER UMICRO #### [facility] [address] [place] [address] Dr. Con Santana Clarity (U) CLEAR Normal CLEAR [facility] Comment on above: Performed By: #### E YAYA, UMICRO #### [facility] [address] [place] [address] Dr. Con Santana Color (U) LT. YELLOW Normal YELLOW [facility] Comment on above: Performed By: #### E YAYA UMICRO #### [facility] [address] [place] [address] Dr. Con KNIGHT A micrscopic examination will be performed if indicated. Normal [facility] Comment on above: Performed By: #### E YAYA UMICRO #### [facility] [address] [place] [address] Dr. Con Santana Glucose Ql (U) Negative Normal NEGATIVE [facility] Comment on above: Performed By: #### Anaya JAVIER UMICRO #### [facility] [address] [place] [address] Dr. Con Santana Hemoglobin Ql (U) TRACE-INTACT Abnormal NEGATIVE [facility] Comment on above: Performed By: #### Anaya JAVIER UMICRO #### [facility] [address] [place] [address] Dr. Con Santana Ketones Ql (U) TRACE Abnormal NEGATIVE [facility] Comment on above: Performed By: #### Anaya JAVIER UMICRO #### [facility] [address] [place] [address] Dr. Con Santana LEUKOCYTES MODERATE Abnormal NEGATIVE [facility] Comment on above: Performed By: #### Anaya JAVIER UMICRO #### [facility] [address] [place] [address] Dr. Con Santana Nitrite Ql (U) Positive Abnormal NEGATIVE [facility] Comment on above: Performed By: #### Anaya JAVIER UMICRO #### [facility] [address] [place] [address] Dr. Con Santana pH (U) 7.0 [pH] Normal 5-9 [facility] Comment on above: Performed By: #### LISA INTERIANO #### [facility] [address] [place] [address] Dr. Con Santana SPEC GRAVITY 1.010 Normal 1.005-<=1.025 [facility] Comment on above: Performed By: #### LISA INTERIANO #### [facility] [address] [place] [address] Dr. Con Santana UA PROTEIN TRACE Normal NEGATIVE/ TRACE [facility] Comment on above: Performed By: #### LISA INTERIANO #### [facility] [address] [place] [address] Dr. Con Santana UR MICRO IND INDICATED Normal [facility] Comment on above: Performed By: #### LISA INTERIANO #### [facility] [address] [place] [address] Dr. Con Santana Urobilinogen Qn (U) 0.2 {Godfrey'U}/dL Normal 0.2 - 1. 0 [facility] Comment on above: Performed By: #### LISA INTERIANO #### [facility] [address] [place] [address] Dr. Con Santana INFLUENZA A AND B AGon 12-20 INFLUENZA A AG Negative Normal NEGATIVE SEE COMMENT [facility] Comment on above: Performed By: #### I NFLUAB #### [facility] [address] [place] [address] Dr. Con Santana INFLUENZA B AG Negative Normal NEGATIVE SEE COMMENT [facility] Comment on above: Performed By: #### I NFLUAB #### [facility] [address] [place] [address] Dr. Con Santana LACTATE/LACTIC ACIDon 2022 Lactate [Moles/Vol] 0.6 mmol/L Normal 0.4-2.0 [facility] Comment on above: Performed By: #### P OCGLUC #### [facility] [address] [address] [address] Con Santana POINT OF CARE GLUCOSEon 11-27 Glucose [Mass/Vol] 217 mg/dL Critically high -106 [facility] Comment on above: Performed By: #### I NFLUAB #### [facility] [address] [address] [address] Con Santana Glucose [Mass/Vol] 204 mg/dL Critically high 74-106 [facility] Comment on above: Performed By: #### P OCGLUC #### [facility] [address] [address] [address] Con Santana Glucose [Mass/Vol] 148 mg/dL Critically high -106 [facility] Comment on above: Performed By: #### C BC #### [facility] [address] [place] [address] Dr. Con Santana PROF 14(COMP METB)on 023 Albumin [Mass/Vol] 3.4 g/dL Normal 3.4-5.0 [facility] Comment on above: Performed By: #### H STROPN #### [facility] [address] [address] [address] Con Santana Albumin/Globulin [Mass ratio] 1.1 {ratio} [facility] Comment on above: Performed By: #### H STROPN #### [facility] [address] [place] [address] Dr. Con Santana ALP [Catalytic activity/Vol] 95 U/L Normal 46-116 [facility] Comment on above: Performed By: #### H STROPN #### [facility] [address] [place] [address] Dr. Con Santana ALT [Catalytic activity/Vol] 22 U/L Normal 14-59 [facility] Comment on above: Performed By: #### H STROPN #### [facility] [address] [place] [address] Dr. Con Santana Anion gap [Moles/Vol] 13.1 mmol/L Normal [facility] Comment on above: Performed By: #### H STROPN #### [facility] [address] [address] [address] Con Santana AST [Catalytic activity/Vol] U/L Critically low 15-37 [facility] Comment on above: Performed By: #### H STROPN #### [facility] [address] [address] [address] Con Santana Bilirubin [Mass/Vol] 0.4 mg/dL Normal 0.2-1.0 [facility] Comment on above: Performed By: #### H STROPN #### [facility] [address] [address] [address] Con Santana Calcium [Mass/Vol] 8.5 mg/dL Normal 8.5-10.1 [facility] Comment on above: Performed By: #### H STROPN #### [facility] [address] [address] [address] Con Santana Chloride [Moles/Vol] 107 mmol/L Normal 98-107 [facility] Comment on above: Performed By: #### H STROPN #### [facility] [address] [address] [address] Con Santana CO2 [Moles/Vol] 22.5 mmol/L Normal 21.0-32.0 [facility] Comment on above: Performed By: #### H STROPN #### [facility] [address] [address] [address] Con Santana Creatinine [Mass/Vol] 0.85 mg/dL Normal 0.55-1.02 [facility] Comment on above: Performed By: #### H STROPN #### [facility] [address] [address] [address] Con Santana EGFR-AF WELSH >60 Normal >=60 [facility] Comment on above: Performed By: #### H STROPN #### [facility] [address] [address] [address] Con Santana EGFR-NON AF WELSH >60 Normal >=60 [facility] Comment on above: Performed By: #### H STROPN #### [facility] [address] [address] [address] Con Santana Globulin (S) [Mass/Vol] 3.2 g/dL Normal [facility] Comment on above: Performed By: #### H STROPN #### [facility] [address] [address] [address] Con Santana Glucose [Mass/Vol] 131 mg/dL Critically high 74-106 [facility] Comment on above: Performed By: #### H STROPN #### [facility] [address] [address] [address] Con Santana Potassium [Moles/Vol] 3.6 mmol/L Normal 3.5-5.1 [facility] Comment on above: Performed By: #### H STROPN #### [facility] [address] [place] [address] Dr. Con Santana Protein [Mass/Vol] 6.6 g/dL Normal 6.4-8.2 [facility] Comment on above: Performed By: #### H STROPN #### [facility] [address] [place] [address] Dr. Con Santana Sodium [Moles/Vol] 139 mmol/L Normal 136-145 [facility] Comment on above: Performed By: #### H STROPN #### [facility] [address] [place] [address] Dr. Con Santana Urea nitrogen [Mass/Vol] 15.0 mg/dL Normal 7.0-18.0 [facility] Comment on above: Performed By: #### H STROPN #### [facility] [address] [place] [address] Dr. Con Santana Urea nitrogen/Creatinine [Mass ratio] 17.6 mg/mg Normal [facility] Comment on above: Performed By: #### H STROPN #### [facility] [address] [place] [address] Dr. Con Santana PROTIMEon 12-20-2022 INR Coag (PPP) [Relative time] 1.08 {INR} Normal [facility] Comment on above: Performed By: #### H STROPN #### [facility] [address] [place] [address] Dr. Con Santana INR GUIDELINES SEE BELOW Normal [facility] Comment on above: Result Comment: CANDELARIA RED INR: 2.0 - 3.0 CONDITIONS NOT LISTED BELOW 2.5 - 3.5 FOR PROSTHETIC HEART VALVE REPLACEMENT 2.5 - 3.5 RECURRENT THROMBOSIS Performed By: #### H STROPN #### [facility] [address] [place] [address] Dr. Con Santana PT Coag (PPP) [Time] 11.4 s Normal 9.0-11.6 [facility] Comment on above: Performed By: #### H STROPN #### [facility] [address] [place] [address] Dr. Con Santana PTTon 12-20-2022 aPTT Coag (Bld) [Time] 30.8 s Normal 22.3-36.2 [facility] Comment on above: Performed By: #### H STROPN #### [facility] [address] [place] [address] Dr. Con Santana URINE MICROSCOPIC ONLYon BACTERIA MODERATE Abnormal NONE SEEN [facility] Comment on above: Performed By: #### Anaya JAVIER UMICRO #### [facility] [address] [place] [address] Dr. Con Santana Bacteria identified Cx Nom (U) INDICATED Normal [facility] Comment on above: Performed By: #### Anaya JAVIER, UMICRO #### [facility] [address] [place] [address] Dr. Con Santana CAST NONE SEEN Normal NONE SEEN [facility] Comment on above: Performed By: #### Anaya JAVIER, UMICRO #### [facility] [address] [place] [address] Dr. Con Santana Crystals LM Nom (Urine sed) NONE SEEN Normal NONE SEEN [facility] Comment on above: Performed By: #### E RUR, UMICRO #### [facility] [address] [place] [address] Dr. Con Santana Epithelial cells LM Ql (Urine sed) FEW Abnormal NONE SEEN /RARE [facility] Comment on above: Performed By: #### E RUR, UMICRO #### [facility] [address] [address] [address] Con Santana MUCOUS NONE SEEN Normal NONE SEEN [facility] Comment on above: Performed By: #### E RUR, UMICRO #### [facility] [address] [address] [address] Con Sanatna RBC 2-5 Abnormal 0-2 [facility] Comment on above: Performed By: #### E RUR, UMICRO #### [facility] [address] [address] [address] Con Santana WBC 20-50 Abnormal NONE SEEN [facility] Comment on above: Performed By: #### E TABR, UMICRO #### [facility] [address] [address] [address] Con Santana XR CHEST 1 Von [...] ELEAZAR GUERRA Date: 2022-12-20 05:[address] [facility] XR DEXA BONE DENSITYon 07-10 XR DEXA BONE DENSITY DEXA Bone Density Study CLINICAL: Evaluate bone mineral density. Postmenopausal COMPARISON: None FINDINGS: The bone density study was assessed by dual-energy x-ray absorptiometry with the FlameStower scanner. The test results are expressed in [...] MATI ATKINS Date: 2022-07-10 16:[address] [facility] BNPon 02-14-2022 Natriuretic peptide B (Bld) [Mass/Vol] 1479.0 pg/mL Normal <=1,800.[address] [facility] Comment on above: Performed By: #### E TABLISA Gr #### [facility] [address] [address] [address] Con Santana CBC AUTO DIFFon 02-14-2022 BASO # 0.1 103/ul Normal 0.0-0.1 [facility] Comment on above: Performed By: #### C BC #### [facility] [address] [place] [address] Dr. Con Santana Basophils/100 WBC (Bld) 0.9 % Normal 0.2-2.0 [facility] Comment on above: Performed By: #### C BC #### [facility] [address] [place] [address] Dr. Con Santana EO # 1.0 103/ul Critically high 0.0-0.[address] [facility] Comment on above: Performed By: #### C BC #### [facility] [address] [place] [address] Dr. Con Santana Eosinophils/100 WBC (Bld) 16.2 % Critically high 0.9-7.0 [facility] Comment on above: Performed By: #### C BC #### [facility] [address] [place] [address] Dr. Con Santana Erythrocyte distribution width (RBC) [Ratio] 12.7 % Normal 11.0-15.0 [facility] Comment on above: Performed By: #### C BC #### [facility] [address] [place] [address] Dr. Con Santana Hematocrit (Bld) [Volume fraction] 39.6 % Normal 36.0-48.0 [facility] Comment on above: Performed By: #### C BC #### [facility] [address] [place] [address] Dr. Con Santana Hemoglobin (Bld) [Mass/Vol] 12.9 g/dL Normal 12.0-16.0 [facility] Comment on above: Performed By: #### C BC #### [facility] [address] [place] [address] Dr. Con Santana IG # 0.02 10e3/ul Normal 0.00-0.03 [facility] Comment on above: Performed By: #### C BC #### [facility] [address] [place] [address] Dr. Con Santana IG % 0.3 % Normal 0.0-0.5 [facility] Comment on above: Performed By: #### C BC #### [facility] [address] [place] [address] Dr. Con Santana LYMPH # 2.6 103/ul Normal 1.2-3.8 [facility] Comment on above: Performed By: #### C BC #### [facility] [address] [place] [address] Dr. Con Santana Lymphocytes/100 WBC (Bld) 40.2 % Normal 20.5-60.0 [facility] Comment on above: Performed By: #### C BC #### [facility] [address] [place] [address] Dr. Con Santana MANUAL DIFF REQ NO Normal [facility] Comment on above: Performed By: #### C BC #### [facility] [address] [place] [address] Dr. Con Santana MCH (RBC) [Entitic mass] 31.5 pg Normal 26.7-34.0 [facility] Comment on above: Performed By: #### C BC #### [facility] [address] [place] [address] Dr. Con Santana MCHC (RBC) [Mass/Vol] 32.6 g/dL Normal 29.9-35.2 [facility] Comment on above: Performed By: #### C BC #### [facility] [address] [place] [address] Dr. Con Santana MCV (RBC) [Entitic vol] 96.6 fL Normal 81.0-99.0 [facility] Comment on above: Performed By: #### C BC #### [facility] [address] [place] [address] Dr. Con Santana MONO # 0.5 103/ul Normal 0.3-0.8 [facility] Comment on above: Performed By: #### C BC #### [facility] [address] [address] [address] Con Santana Monocytes/100 WBC (Bld) 8.4 % Normal 1.7-12.0 [facility] Comment on above: Performed By: #### C BC #### [facility] [address] [address] [address] Con Santana NEUT # 2.2 103/ul Normal 1.4-6.5 [facility] Comment on above: Performed By: #### C BC #### [facility] [address] [address] [address] Con Santana Neutrophils/100 WBC (Bld) 34.0 % Critically low 43.0-75.0 [facility] Comment on above: Performed By: #### C BC #### [facility] [address] [place] [address] Dr. Con Santana Platelet mean volume (Bld) [Entitic vol] 9.8 fL Normal 9.5-13.5 [facility] Comment on above: Performed By: #### C BC #### [facility] [address] [place] [address] Dr. Con Santana PLT 270 103/ul Normal 150-[address] [facility] Comment on above: Performed By: #### C BC #### [facility] [address] [place] [address] Dr. Con Santana RBC 4.10 106/ul Critically low 4.20-5.40 [facility] Comment on above: Performed By: #### C BC #### [facility] [address] [place] [address] Dr. Con Santana WBC 6.3 103/ul Normal 4.0-11.[address] [facility] Comment on above: Performed By: #### C BC #### [facility] [address] [place] [address] Dr. Con Santana Covid-19 PCR ([facility])on 01-27 SARS-CoV-2 (COVID-19) RNA JEANE+probe Ql (Unsp spec) Not detected Normal NOT DETECTED [facility] Comment on above: Result Comment: When [...] for this test is supported by the Personal Injury Specialist of Health and Human Service's declaration that [...] used). Performed By: #### C BC #### [facility] [address] [place] [address] Dr. Con Santana INFLUENZA A AND B [facility]on 02-[facility] Normal [facility] Comment on above: Result Comment: Nega tive for Flu A protein angiten. Infection due to Flu A cannot be ruled out. Flu A angiten in the sample may be below the detection limit of the test. Performed By: #### C BC #### [facility] [address] [place] [address] Dr. Con Santana INFLUBNEG SEE BELOW Normal [facility] Comment on above: Result Comment: Nega tive for Flu B protein antigen. Infection due to Flu B cannot be ruled out. Flu B antigen in the sample may be below the detection limit of the test. Performed By: #### C BC #### [facility] [address] [place] [address] Dr. Con Santana INFLUENZA A AG Negative Normal NEGATIVE SEE COMMENT [facility] Comment on above: Performed By: #### C BC #### [facility] [address] [place] [address] Dr. Con Santana INFLUENZA B AG Negative Normal NEGATIVE SEE COMMENT [facility] Comment on above: Performed By: #### C BC #### [facility] [address] [address] [address] Con Santana INTERNAL CONTROLS Within Normal Limits Normal Wi thin Normal Limits [facility] Comment on above: Performed By: #### C BC #### [facility] [address] [address] [address] Con Santana PROF 14(COMP METB)on 022 Albumin [Mass/Vol] 3.1 g/dL Critically low 3.4-5.0 [facility] Comment on above: Performed By: #### H STROPN #### [facility] [address] [address] [address] Con Santana Albumin/Globulin [Mass ratio] 1.0 {ratio} Normal [facility] Comment on above: Performed By: #### H STROPN #### [facility] [address] [place] [address] Dr. Con Santana ALP [Catalytic activity/Vol] 88 U/L Normal 46-116 [facility] Comment on above: Performed By: #### H STROPN #### [facility] [address] [address] [address] Con Santana ALT [Catalytic activity/Vol] 26 U/L Normal 14-59 [facility] Comment on above: Performed By: #### H STROPN #### [facility] [address] [place] [address] Dr. Con Santana Anion gap [Moles/Vol] 11.2 mmol/L Normal [facility] Comment on above: Performed By: #### H STROPN #### [facility] [address] [address] [address] Con Santana AST [Catalytic activity/Vol] 24 U/L Normal 15-37 [facility] Comment on above: Performed By: #### H STROPN #### [facility] [address] [address] [address] Con Santana Bilirubin [Mass/Vol] 0.6 mg/dL Normal 0.2-1.0 [facility] Comment on above: Performed By: #### H STROPN #### [facility] [address] [address] [address] Con Santana Calcium [Mass/Vol] 8.4 mg/dL Critically low 8.5-10.1 [facility] Comment on above: Performed By: #### H STROPN #### [facility] [address] [address] [address] Con Santana Chloride [Moles/Vol] 106 mmol/L Normal 98-107 [facility] Comment on above: Performed By: #### H STROPN #### [facility] [address] [address] [address] Con Santana CO2 [Moles/Vol] 27.0 mmol/L Normal 21.0-32.0 [facility] Comment on above: Performed By: #### H STROPN #### [facility] [address] [place] [address] Dr. Con Santana Creatinine [Mass/Vol] 0.71 mg/dL Normal 0.55-1.02 [facility] Comment on above: Performed By: #### H STROPN #### [facility] [address] [place] [address] Dr. Con Santana EGFR-AF WELSH >60 Normal >=60 [facility] Comment on above: Performed By: #### H STROPN #### [facility] [address] [place] [address] Dr. Con Santana EGFR-NON AF WELSH >60 Normal >=60 [facility] Comment on above: Performed By: #### H STROPN #### [facility] [address] [place] [address] Dr. Con Santana Globulin (S) [Mass/Vol] 3.1 g/dL Normal [facility] Comment on above: Performed By: #### H STROPN #### [facility] [address] [address] [address] Con Santana Glucose [Mass/Vol] 104 mg/dL Normal 74-106 [facility] Comment on above: Performed By: #### H STROPN #### [facility] [address] [place] [address] Dr. Con Santana Potassium [Moles/Vol] 3.2 mmol/L Critically low 3.5-5.1 [facility] Comment on above: Performed By: #### H STROPN #### [facility] [address] [address] [address] Con Santana Protein [Mass/Vol] 6.2 g/dL Critically low 6.4-8.2 [facility] Comment on above: Performed By: #### H STROPN #### [facility] [address] [address] [address] Con Santana Sodium [Moles/Vol] 141 mmol/L Normal 136-145 [facility] Comment on above: Performed By: #### H STROPN #### [facility] [address] [place] [address] Dr. Con Santana Urea nitrogen [Mass/Vol] 13.0 mg/dL Normal 7.0-18.0 [facility] Comment on above: Performed By: #### H STROPN #### [facility] [address] [place] [address] Dr. Con Santana Urea nitrogen/Creatinine [Mass ratio] 18.3 mg/mg Normal [facility] Comment on above: Performed By: #### H STROPN #### [facility] [address] [place] [address] Dr. Con Santana TROPONIN, HIGH SENSITIVITYon 02-14-2022 HSTROP 20.9 pg/mL Normal 4.0-51.3 [facility] Comment on above: Result Comment: CUT- OFF POINTS HAVE BEEN ESTABLISHED BASED ON THE FOURTH UNIVERSAL DEFINITIONS OF MYOCARDIAL INFARCTION. THE UPPER REFERENCE LIMIT (URL) OF TROPONIN, DEFINED THE 99TH PERCENTILE OF cTnI DISTRIBUTION IN A REFERENCE POPULATION, HAS BEEN CONFIRMED THE DECISION THRESHOLD FOR ND DIAGNOSIS. Performed By: #### E LISA JAVIER #### [facility] [address] [place] [address] Dr. Con Santana XR CHEST 1 Von [...] by: KAROL VARELA Date: 2022-02-14 09:36 Normal [facility] XR chest 2V*on 01-15-2019 XR chest 2V* [facility] [place] [address] [place] [address] XRay Report Signed Patient: Salome Dominguez MR#: [id number] : 1940 Acct:[id number] Age/Sex: 78 / F ADM Date: 01/15/19 Loc: XDUCLY Room: Type: [facility] Attending Dr: Jack JAMES Ordering Provider: Jack [...] Maximiliano Campos M.D.01/15/2019 11:38 AM Dictation Location: [facility] Transcribed By: [facility] 01/15/19 1138 Dictated By: Maximiliano Campos II, MD 01/15/19 1137 Signed By: 01/15/19 1138 [facility] XR SHOULDER RIGHT TRAUMA SER IESon 08-21-2017 XR SHOULDER RIGHT TRAUMA SERIES 08/21/2017 5:37 PMXR SHOULDER RIGHT TRAUMA SERIESINDICATION: Fall.COMPARISON: None availableFINDINGS: 2 views the right shoulder. Comminuted fracture of the humerus involving the greater tuberosity and surgical neck. Humeral head remains articulate with the glenoid.IMPRESSION: Proximal humerus fracture.Workstation ID:[id number]; right arm injury. Best images possible. Normal [facility] Vital Signs Date Time Vital Sign Value Performing Clinician Facility 10-12-2023 11:00-0500 Body height 158.75 cm Effie Jackman Other [facility] Other 10-12-2023 11:00-0500 Body mass index (BMI) [Ratio] 18.18 kg/m2 Effie Jackman Other [facility] Other 10-12-2023 11:00-0500 Body weight 45.81 kg Effie Jackman Other [facility] Other 10-12-2023 11:00-0500 Diastolic blood pressure 64 mm[Hg] Effie Jackman Other [facility] Other 10-12-2023 11:00-0500 SaO2% (BldA) [Mass fraction] 97 % Effie Jackman Other [facility] Other 10-12-2023 11:00-0500 Systolic blood pressure 118 mm[Hg] Effie Jackman Other [facility] Other Encounters Encounter Date Encounter Type Care Provider Facility Start: 05-19-2024 ambulatory [facility] Start: 04-11-2024 End: 04-11-2024 ambulatory [facility] Start: 04-05-2024 Evaluation and management of inpatient [facility] Start: 04-04-2024 Evaluation and management of inpatient [facility] Start: 04-04-2024 Evaluation and management of inpatient CAMILLE CONCEPCION [facility] Start: 04-01-2024 Emergency department patient visit FELICIA MEDINA [facility] Start: 04-01-2024 End: 04-05-2024 Evaluation and management of inpatient MIREYA TOLENTINO [facility] Start: 04-01-2024 End: 04-01-2024 ambulatory PADMINI BILLINGS [facility] Start: 03-30-2024 End: 03-30-2024 ambulatory MICHAELA RICHARDSON Not Available Start: 03-22-2024 End: 03-22-2024 ambulatory JUANA MCDANIELS Not Available Start: 03-16-2024 End: 03-17-2024 ambulatory MICHAELA RICHARDSON Not Available Start: 12-31-2023 End: 12-31-2023 ambulatory MICHAELA H RICHARDSON Not Available Start: 11-18-2023 End: 11-18-2023 ambulatory MICHAELA RICHARDSON Not Available Start: 10-27-2023 End: 10-27-2023 ambulatory Effie Jackman Other [facility] Other Start: 10-27-2023 Telephone encounter Effie Jackman [facility] Start: 10-16-2023 End: 10-16-2023 ambulatory Effie Jackman Other [facility] Other Start: 10-16-2023 Telephone encounter Effie Jackman [facility] Start: 10-15-2023 End: 10-15-2023 ambulatory Effie Jackman Other [facility] Other Start: 10-15-2023 Telephone encounter Effie Jackman [facility] Start: 10-12-2023 Office outpatient visit 25 minutes Effie Jackman [facility] Start: 10-12-2023 Telephone encounter Effie Jackman [facility] Start: 10-12-2023 End: 10-12-2023 ambulatory NICHOLAS Joshua ABIGAIL [employer] Other Start: 10-01-2023 End: 10-01-2023 ambulatory MICHAELA H RICHARDSON Not Available Start: 08-05-2023 End: 08-05-2023 ambulatory Effie Jackman Other [facility] Other Start: 08-05-2023 Telephone encounter Effie Jackman [facility] Start: 05-14-2023 End: 05-14-2023 ambulatory Effie Jackman Other [facility] Other Start: 05-14-2023 Telephone encounter Effie Jackman [facility] Start: 03-30-2023 End: 03-30-2023 ambulatory Effie Jackman Other [facility] Other Start: 03-30-2023 Telephone encounter Effie Jackman [facility] Start: 03-27-2023 End: 03-27-2023 ambulatory Effie Jackman Other [facility] Other Start: 03-27-2023 Telephone encounter Effie Jackman [facility] Start: 12-29-2022 End: 01-01-2023 Evaluation and management of inpatient DR JANI MORENO Facility:[facility] Start: 12-22-2022 End: 12-22-2022 Evaluation and management of inpatient DR JANI MORENO Facility:[facility] Start: 07-10-2022 End: 07-11-[address] JANI MORENO Facility:[facility] Start: 02-14-2022 End: 02-14-[address] JANI MORENO Facility:[facility] Start: 01-15-2019 End: 01-15-2019 Patient encounter procedure Jack Sanches Facility:[facility] Start: 11-20-2017 End: 11-21-2017 Ambulatory DEFAULT PHYSICIAN Facility:[facility] Start: 08-21-2017 End: 08-21-2017 Emergency department patient visit JACK PINA [facility] Start: 05-07-2017 End: 05-08-2017 Ambulatory DANIELLE COFFMAN Facility:[facility] Immunizations Immunization Date Immunization Notes Care Provider Roberta webb 07-03-2023 influenza, high dose seasonal, preservative-free Effie Augustina Other [facility] Other Payers Date Payer Category Payer Unknown [id number] 2017 Self-pay 2014 Unknown [id number] 2003 Medicare [id number] 1959 Unknown [id number] 1940 Unknown [id number] 2.16.84 [id number] 1940 Unknown [id number] 2.16.84 [id number] 1940 Unknown [id number] 2.16.84 [id number] 1940 Unknown [id number] 2.16.84 [id number] 1938 Unknown [id number] 2.16.84 [id number] 1938 Unknown [id number] 2.16.84 [id number] 1938 Unknown [id number] 2.16.84 [id number] 1938 Unknown [id number] 2.16.84 [id number] 1938 Unknown [id number] 2.16.84 [id number] 1938 Unknown [id number] 2.16.84 [id number] 1940 Unknown [id number] 2.16.840 .[id number] Medicare [id number] Unknown Unknown [id number] 2.16.84 [id number] Social History Date Type Detail Facility Unknown if ever smoked [facility] Other Sex Assigned At Sex Assigned At Bir th [facility] Other Clinical Notes 03-27-2023 to 04-11-2024 Note [...] nurse practitioner on 04/29/2020 Padmini Billings MD, [facility] 04-05-2024 Note Adult Nutrition Asse ssment: [...] subcutaneous, Daily levothyroxine, 75 mcg, oral, Daily mauybj-znjqvwjm-zostjmp, 1 capsule, oral, TID with meals metoprolol [...] Special Kitchen Request Once Comments: Zay 2 pakistani toast, butter and syrup.turkey sausage, grits with brown sugar and butter, raspberry mongolian,orange juice and coffee, cream and sugar 04/03/24 0826 04/02/24 1302 Special Kitchen Request Once Comments: Zay send hot roast beef sandwich, mashed potatoes and gravy, Chicken noodle soup, Ramos pie,diet cola, cottage cheese 04/02/24 1303 Meal Intakes: no meals recorded Nutrition Risk: High Nutrition Needs: Needs based on: actual body weight Calorie needs: 7098-8826 kcals/day based on Equation: 25-30 kcal/kg MSJ x 1,4=4066 flori Protein needs: 41-49 g/day based on [...] Hand Grasp: Weak 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 For weekends & holidays, the dietitian can be reached via pager [phone] from [phone]-3P. Unable to respond to So1 messages on Thursday & s. [facility] 04-05-2024 Note Hospital Medicine Discharge [...] placement. Patient underwent implementation of dual-chamber pacemaker, [employer] on 04/04 and did fairly well. [...] 9:40 AM Padmini Billings MD [facility] 04/29/2024 1:40 PM Sammie Miles NP [facility] Your medication list START taking these [...] HYDROcodone-acetaminophen 5-325 mg tablet Commonly known as: [place] Take 1 tablet by mouth every 6 [...] Creon 3,000-9,500- 15,000 unit capsule Generic drug: rczwgq-uihsfsvy-yeymkpl levothyroxine 75 mcg tablet Commonly known as: Synthroid, Levoxyl Vitamin B-12 1,000 mcg tablet Generic drug: cyanocobalamin Where to Get Your Medications These medications were sent to [facility]/pharmacy #[id number] [place], [place] - [address] [facility] [address] [place] [id number] doxycycline 100 mg capsule metoprolol succinate XL 25 mg 24 hr tablet You can get these medications from any pharmacy Bring a paper prescription for each of these medications HYDROcodone-acetaminophen 5-325 mg tablet Salome is allergic to psyllium. Disposition: Home-Health Care [facility] (06) Discharge Condition: Stable Code Status: Full [...] was 60 minutes. Signed Mireya Tolentino MD [facility] Medicine 04/05/2024 12:16 PM [facility] 04-05-2024 Note Occupational Therapy Occupational [...] at home . Implantation of dual chamber PPM([employer]): submuscular implant 04/04/24 General Subjective: friendly [...] function) General Assessment General Assessment Hearing: (mild [place] hills) Hand Dominance: Right Home Living Home Living Type of Home[facility] Lives With: Spouse Home Adaptive Equipment: Walker rolling, Cane (sc, gb, hhs) Home Layout: One level Home Access: Level entry Bathroom Shower/Tub: Walk-in shower Prior Level of Function Prior Function Level of [place]: Independent with ADLs and functional transfers, Independent [...] Sensation Light Touc (more content not included)... [facility] 04-05-2024 Note UTP CARDIOLOGY INPAT [...] subcutaneous, Daily levothyroxine, 75 mcg, oral, Daily cghuwa-aikirvpy-oifjafe, 1 capsule, oral, TID with meals olopatadine, [...] hyperinflation. Normal cardiomediastinal (more content not included)... [facility] 04-04-2024 Note DUAL CHAMBER PACEMAK ER IMPLANT PROCEDURE NOTE DATE OF PROCEDURE: 04/04/2024 PERFORMING PHYSICIAN: Dr. Issa Richards WASH WORKER: MIKE CONSENT: Patient LOCATION: [facility] PROCEDURE PERFORMED: 1. Implantation of dual chamber PPM([employer]): submuscular implant. 2. U/S venous access [...] presented to ER per recommendation of her hogshead packer because of bradycardia. Patient's daughter reports that [...] occasions using seldinger technique using a 5 Russian micropunture needle and exchanged for 0.034 wire. I decided to proceed with opening of the pocket. Localinfiltration of 1% Lidocaine was performed and an incision was created in the left upper chest. Dissection was then performed using cautery down. An active fixation [employer] pacing lead was then delivered via SPCC1 His sheath through the 9F sheath to the right ventricle. After confirmation of lead position on orthogonal views (CHIRINOS and SLOVAK) to confirm position in the septal aspect, [...] three 0- Silk sutures. An active fixation [employer] RA pacing lead was then delivered through the 6Fsheath to the right atrial appendage. After confirmation of lead position on orthogonal views (CHIRINOS and SLOVAK) to confirm position in the appendage, the screw was activated. After confirmation of good sensing parameters, injury pattern and pacing thresholds, 10V pacing was done and no diaphragmatic stimulation was noted. It was then secured in the pocket using three 1-0 Silk sutures. At this stage, given the good thresholds, the backup His lead was removed. The leads were then attached to a [employer] PPM device and the leads tug [...] x 2 weeks Issa Richards Cardiac Electrophysiology [facility] 04-04-2024 Note Patient: Salome Stewart Procedure Information Date/Time: 04/04/24 1368 Procedure: Implant PPM Location: [facility] 1 / [facility] (Cath) Providers: Issa Richards MD Clinical information reviewed: Tobacco Allergies Problems Med Hx Surg Hx OB Status Fam Hx Physical Exam Airway Mallampati: II TM distance: >3 FB Neck ROM: full Cardiovascular Dental Pulmonary Abdominal Anesthesia Plan ASA 2 CSE Anesthetic plan and risks discussed with patient. Use of blood products discussed with patient who. Additional Equipment Requests [facility] 04-04-2024 Note H&P reviewed. The [...] have agreed to proceed with the procedure. [facility] 04-04-2024 Note Hospital Medicine Daily Progress Note - 04/04/2024 9:43 AM; Room: [facility]313- Admission: 04/01/2024 5:28 PM; Length of stay: 3 days THE HOSPITALIST TEAM PREFERS TO USE [employer] CHAT FOR COMMUNICATION 7AM-7PM. IF I DO NOT RESPOND WITHIN 15 MINUTES, PLEASE PAGE ME/CALL THROUGH THE BACTERIOLOGIST PHARMACEUTICAL. FROM 7PM-7AM, PLEASE PAGE [phone](COVR) Code Status: Full Code Barriers to Discharge: [...] dyspnea, orthopnea, pre-syncope, syncope). EKG taken at [facility] on 02/10 showed first degree AV block [...] 11:30 PM 04/04/2024 8:00 AM Site Assessment [facility] [place] [facility] Prophylaxis: Lovenox Scheduled Meds ceFAZolin (Ancef) 1,000 mg, gentamicin (Garamycin) 80 mg in sodium chloride irrigation solution 0.9 % 500 mL IRRIGATION, , irrigation, Once ceFAZolin, 2 g, intravenous, Once enoxaparin, 40 mg, subcutaneous, Daily levothyroxine, 75 mcg, oral, Daily bbgbkl-wlzmuqum-actogak, 1 capsule, oral, TID with meals olopatadine, [...] mg/dL 19 CREATI (more content not included)... [facility] 04-04-2024 Note -- Attestation signed [...] Richards MD, 30 mL at 04/04/24 1328 reysxa-sblwplsm-bmcrymr (Creon) 3,000-9,500- 15,000 unit per capsule 1 [...] Mirian Pelaez MD PGY3 Internal Medicine [facility] 04-03-2024 Note Hospital Medicine Daily Progress Note - 04/03/2024 12:05 PM; Room: [address] [place] [address] Admission: 04/01/2024 5:28 PM; Length of stay: 2 days THE HOSPITALIST TEAM PREFERS TO USE [employer] CHAT FOR COMMUNICATION 7AM-7PM. IF I DO NOT RESPOND WITHIN 15 MINUTES, PLEASE PAGE ME/CALL THROUGH THE BACTERIOLOGIST PHARMACEUTICAL. FROM 7PM-7AM, PLEASE PAGE [phone](COVR) Code Status: Full Code Barriers to Discharge: [...] 11:30 PM 04/03/2024 8:00 AM Site Assessment [place] [facility] [place] [facility] Prophylaxis: Lovenox Scheduled Meds enoxaparin, 40 mg, subcutaneous, Daily levothyroxine, 75 mcg, oral, Daily tdyowh-fpqczmpt-bggwepx, 1 capsule, oral, TID with meals pantoprazole, [...] FREET4 0.77 04/01/2024 No results found for: [id number] , IRON , TIBC , C3 , [...] Tolentino MD Hospital Medicine 04/03/2024 12:05 PM [facility] 04-03-2024 Note -- Attestation signed [...] QT Interval 532 QTC CALCULATION(BAZETT) 411 P [place] 82 R-[place] -60 T Wave [place] 71 Impression Sinus rhythm with complete heart [...] Cardiology will follow along Orlando Valdez MD Medical Information Specialist PGY-4 [facility] 04-02-2024 Note Hospital Medicine Daily Progress Note - 04/02/2024 11:29 AM; Room: 3133/3133-01 Admission: 04/01/2024 5:28 PM; Length of stay: 1 days THE HOSPITALIST TEAM PREFERS TO USE [employer] CHAT FOR COMMUNICATION 7AM-7PM. IF I DO NOT RESPOND WITHIN 15 MINUTES, PLEASE PAGE ME/CALL THROUGH THE BACTERIOLOGIST PHARMACEUTICAL. FROM 7PM-7AM, PLEASE PAGE [phone](COVR) Code Status: Full Code Barriers to Discharge: [...] 11:30 PM 04/02/2024 9:00 AM Site Assessment [place] [facility] Prophylaxis: Lovenox Scheduled Meds [START ON [...] FREET4 0.77 04/01/2024 No results found for: [id number] , IRON , TIBC , C3 , [...] Tolentino MD Hospital Medicine 04/02/2024 11:29 AM [facility] 04-01-2024 Note Hospital Medicine History and Physical 04/01/2024 11:08 PM THE HOSPITALIST TEAM PREFERS TO USE [email or web address] FOR COMMUNICATION 7AM-7PM. IF I DO NOT RESPOND WITHIN 15 MINUTES, PLEASE PAGE ME/CALL THROUGH THE BACTERIOLOGIST PHARMACEUTICAL. FROM 7PM-7AM, PLEASE PAGE [phone](COVR) Chief Complaint Chief Complaint Patient presents with Bradycardia Pt sent by [facility] for bradycardia. Pt c/o occasional SOB but denies being symptomatic otherwise. History of Present Illness Salome Dominguez is an 83 y.o. female who came from home with past medical history of hypothyroidism, anemia, COPD, aortic valve stenosis, asthma and dementia presented to ER per recommendation of her hogshead packer that the patient saw today because of [...] Date Noted Bradycardia 04/01/2024 Complete heart block ([facility]/HCC) 04/01/2024 Murmur, heart 04/01/2024 SERRANO (dyspnea on exertion) 04/01/2024 Third degree heart block ([facility]/HCC) 04/01/2024 Dementia ([facility]) 03/15/2024 Hypothyroidism 03/15/2024 Long-term use of high-risk medication 03/15/2024 Lesion of skin of scalp 07/01/2023 Sensorineural hearing loss, bilateral 07/01/2023 Acute combined systolic and diastolic heart failure (CMS/HCC) 06/30/2023 Chronic fatigue, unspecified 06/30/2023 Diabetes mellitus ([facility]/HCC) 06/30/2023 Essential (primary) hypertension 06/30/2023 Age related osteoporosis 06/08/2023 Anxiety disorder, unspecified 06/08/2023 Asymptomatic varicose veins 06/08/2023 Ataxic gait 06/08/2023 Biliary cirrhosis ([facility]/HCC) 06/08/2023 Bladder atonia 06/08/2023 Cardiomegaly 06/08/2023 [...] Moderate episode of recurrent major depressive disorder ([facility]/HCC) 06/08/2023 Moderate persistent asthma without complication 06/08/2023 Myositis 06/08/2023 Nonrheumatic aortic valve stenosis 06/08/2023 Osteoarthritis of lumbar spine 06/08/2023 Other congenital valgus deformity of feet 06/08/2023 Other seborrheic keratosis 06/08/2023 Paroxysmal atrial fibrillation (CMS/HCC) 06/08/2023 Pure hypercholesterolemia 06/08/2023 Restless legs syndrome 06/08/2023 Transient cerebral ischemia 06/08/2023 Chronic obstructive pulmonary disease with (acute) exacerbation ([facility]) 03/12/2023 Osteoarthrosis, hand 10/15/2009 Bacterial overgrowth syndrome 05/17/2009 Abdominal pain, lef (more content not included)... [facility] 04-01-2024 Note 04/01/242033 Financial Resource [...] have you lived? 1 (Lives at [facility] [place] [facility] w/ ) In the last 12 months, was there a time when you did not have a steady place to sleep or slept in a residential (including now)? N Transportation Needs In the [...] than 3 How often do you attend zoroastrianism or religion services? Never Do you belong to any clubs or organizations such as zoroastrianism groups, unions, fraternal or athletic groups, or [...] has the electric, gas, oil, or water [employer] threatened to shut off services in your home? No 04/01/242034 Referral Data Referral Source ventilation worker Referral Reason Psychosocial assessment Patient Information Primary Caregiver Private caregiver Accompanied by/Relationship Daughter Alexia, elke Brown Activities of Daily Living Assistive Device Walker (uses sometimes) Living Arrangement (Current/Prior to Hospitalization) Private residence ([facility] independent living w/ ) Ambulation Minimum assistance (uses walker sometimes) Dressing Independent Feeding Independent Behavior Oriented (A&Ox4) Communication Can write;Talks;Understands speaking;Understands Martiniquais;Reads Income Information Income Source Unemployed (Retired) Discharge Planning Support Systems Spouse/significant other;Children ( Kevin; six daughters (Alexia, Kait, Donita, Jasmin, Doris, Savana); son Karol) Type of Residence Private residence;Home care staff Will patient need Precert for Post Acute needs? No Patient's goal for discharge Return to [facility] with continued CALIBRATION TECHNICIAN Does the patient need discharge transport arranged? No Completed social work assessment and SDoH screening. Patient was A&Ox4 at this time. Patient's , Kevin, and daughter, Alexia, were currently present at bedside. Patient reported that she lives at [facility] with her . Patient identified her support system as her (Kevin), her six daughters (Alexia, Kait, Donita, Jasmin, Doris, and Savana), and her son (Karol). Patient endorsed that she is moderately socially active. Patient reported that she needs assistance with bathing, which is provided by one of her daughters or by her CALIBRATION TECHNICIAN who visits 2x/week. Patient reported that she [...] any alcohol consumption or recreational drug use. [facility] 04-01-2024 Note [facility] Note Reason for cardiology [...] mood, affect, and judgement. Labs: 12/23/[address] [facility] TSH 9.379., White blood count 4.6, [...] block, left a (more content not included)... [facility] 10-16-2023 Evaluation note Encounter Date Diagnosis Assessment Notes Sep, Hypokalemia (ICD-10 - E87.6) [facility] Other 01-18-2024 Evaluation note* Encounter Date Diagnosis Assessment Notes Treatment Notes Treatment Clinical Notes Sep, Other symptoms and signs involving appearance and behavior (ICD-10 - R46.89) [facility] Other 01-15-2024 Evaluation note* Encounter Date Diagnosis [...] Pt reinforced to take med as prescribed. [facility] Other 11-08-2023 Evaluation note* Encounter Date Diagnosis Assessment Notes Treatment Notes Treatment Clinical Notes Jul, Restless leg syndrome (ICD-10 - G25.81) [facility] Other 08-17-2023 Evaluation note* Encounter Date Diagnosis Assessment Notes Treatment Notes Treatment Clinical Notes Apr, Chronic diarrhea (ICD-10 - K52.9) [facility] Other 06-30-2023 Evaluation note* Encounter Date Diagnosis Assessment Notes Treatment Notes Treatment Clinical Notes Feb, Moderate persistent asthma without complication (ICD-10 - J45.40) [facility] Other Evaluation noteNo InformationNort [employer] Other History general Narrative - Reported* Type Description Date Medical History Atrial fibrillation Medical History asthma Medical History arthritia Medical History insomnia Surgical History cholecystectomy Surgical History hysterectomy Surgical History appendectomy Surgical History bowel surgery Surgical History surgery on L fourth toe 08/2016 Hospitalization History pneumonia [facility] Other History general Narrative - Reported* Type Description Date Medical History Atrial fibrillation Medical History asthma Medical History arthritia Medical History insomnia Medical History Bladder stimulator Surgical History cholecystectomy Surgical History hysterectomy Surgical History appendectomy Surgical History bowel surgery Surgical History surgery on L fourth toe 08/2016 Hospitalization History pneumonia [facility] Other Summary Purpose Family History No Family [...] Directives Records Found Reason for Referral Reason [facility] - Do cuments scanned from family. CT brain pending. Behavioral and safety concerns. Notes from family scanned into chart Diagnosis 1 Other symptoms and s igns involving cognitive functions and awareness (R41.89) Referral Organization [facility] Medical sophie Referring Provider First Name Effie Referring Provider Last Name Augustina Referring Provider Specialty Family [facility] Referred Organization [facility] Referred Address [address] [place] [facility] [place] [place],[address] Referred Provider Specialty Neurology Referral Priority Routine Additional Source Comments INFORMATION SOURCE (unrecogn ized section and content) DATE CREATED AUTHOR 03/19/2018 [facility] DATE CREATED AUTHOR AUTHOR'S ORGANIZ ATION 03/24/2018 [facility] DATE CREATED AUTHOR AUTHOR'S ORGANIZ ATION 04/22/2018 [facility] DATE CREATED AUTHOR AUTHOR'S ORGANIZ ATION 01/16/2019 [facility] DATE CREATED AUTHOR AUTHOR'S ORGANIZ ATION 01/03/2023 [facility] DATE CREATED AUTHOR AUTHOR'S ORGANIZ ATION 04/01/2024 [facility] Special[facility] DATE CREATED AUTHOR AUTHOR'S ORGANIZ ATION 04/12/2024 [facility] DATE CREATED AUTHOR AUTHOR'S ORGANIZ [...] BE BASED ON THE PRIMARY CLINICAL RECORDS. [employer] [facility]. provides no warranty or guarantee of the accuracy or completeness of information in this document.
--- NOTE | 2024-07-22 21:26 | ED.SOB1 ---
HPI - SOB/Dyspnea General Chief Complaint: Shortness of Breath/Dyspnea Stated Complaint: Shortness of breath Time Seen by Provider: 07/22/24 21:14 Source: patient Mode of arrival: Wheelchair Limitations: other Limitations comment: HARD OF HEARING History of Present Illness HPI Narrative: past history of COPD. chronic dyspnea. Now presents complaining of shortness of breath. Her partner states she is always short of breath. She is resting on the stretcher . States she becomes short of breath with exertion. No chest pain or nausea Related Data Home Medications ?Medication ?Instructions ?Recorded ?Confirmed albuterol sulfate 90 mcg/actuation 2 puff inhalation DAILY 02/11/24 07/22/24 aerosol inhaler levothyroxine 75 mcg tablet 75 mcg PO DAILY 02/11/24 07/22/24 metoprolol succinate 25 mg 12.5 mg PO DAILY 05/11/24 07/22/24 tablet,extended release 24 hr cyanocobalamin (vitamin B-12) 1,000 mcg PO .qd 06/27/24 07/22/24 1,000 mcg tablet [id number] 1 cap PO TID 06/27/24 07/22/24 3,000-9,500-15,000 unit capsule, delayed rel (Creon) Previous Rx's ?Medication ?Instructions ?Recorded albuterol sulfate 2.5 mg/3 mL 2.5 mg (3 mL) inhalation Q6H PRN 05/26/24 (0.083 %) solution for nebulization shortness of breath or wheezing #180 mL nebulizers (Aeroneb Go Nebulizer) #1 ea 05/26/24 Allergies Allergy/AdvReac Type Severity Reaction Status Date / Time psyllium (From Metamucil) Allergy Severe Hives Verified 07/22/24 20:46 Review of Systems ROS Status of ROS 10 or more systems reviewed and unremarkable except as noted in history and below [facility] Medical History (Updated 07/22/24 @ 23:33 by Foreign Flores MD) Severe protein-calorie malnutrition ?E43 - Unspecified severe protein-calorie malnutrition (ICD-10) Acute hyponatremia ?E87.1 - Hypo-osmolality and hyponatremia (ICD-10) Chronic diastolic (congestive) heart failure ?I50.32 - Chronic diastolic (congestive) heart failure (ICD-10) Primary hypertension ?I10 - Essential (primary) hypertension (ICD-10) Hypothyroidism (acquired) ?E03.9 - Hypothyroidism, unspecified (ICD-10) Abnormal CT scan, gastrointestinal tract ?R93.3 - Abnormal findings on diagnostic imaging of other parts of digestive tract (ICD-10) Ileus ?K56.7 - Ileus, unspecified (ICD-10) Abnormal CT of the abdomen ?R93.5 - Abnormal findings on diagnostic imaging of other abdominal regions, including retroperitoneum (ICD-10) Adult failure to thrive ?R62.7 - Adult failure to thrive (ICD-10) COPD (chronic obstructive pulmonary disease) ?J44.9 - Chronic obstructive pulmonary disease, unspecified (ICD-10) Shortness of breath ?R06.02 - Shortness of breath (ICD-10) Pacemaker ?Z95.0 - Presence of cardiac pacemaker (ICD-10) Asthma ?J45.909 - Unspecified asthma, uncomplicated (ICD-10) Surgical History History of cholecystectomy ?Z90.49 - Acquired absence of other specified parts of digestive tract (ICD-10) History of hysterectomy ?Z90.710 - Acquired absence of both cervix and uterus (ICD-10) History of appendectomy ?Z90.49 - Acquired absence of other specified parts of digestive tract (ICD-10) Family History Brother Family history of COPD (chronic obstructive pulmonary disease) Social History Within the past year, how often did you have a drink containing alcohol: monthly or less Within the past year, how many standard drinks containing alcohol did you have on a typical day: 1 or 2 Within the past year, how often did you have six or more drinks on one occasion: never Total score: 0 Score interpretation: A score less than 3 is consistent with normal alcohol consumption. Smoking status: Never smoker Non-prescribed substance use: denies use Previous occupational history: retired Highest level of school completed/degree received: Associate degree: occupational, technical, vocational program Are you now , , , , never or living with a partner: Little interest or pleasure in doing things: not at all Feeling down, depressed, or hopeless: not at all Feel stressed/tense/nervous/anxious/difficulty sleeping: not at all Do you think of yourself as: straight/heterosexual Gender Identity: female Exam Constitutional Vital Signs, click to edit/add: Last Vital Signs Temp 98 F 07/22/24 20:46 Pulse 87 07/22/24 22:12 Resp 21 H 07/22/24 22:12 BP 107/90 07/22/24 21:30 Pulse Ox 98 07/22/24 22:12 O2 Del Method Room Air 07/22/24 22:12 Common normals: no apparent distress, average body habitus, oriented x3, no limitations, alert and well nourished HENMT Common normals: normocephalic and head/scalp atraumatic Respiratory Common normals: no retractions and no use of accessory muscles Effort & inspection: able to speak in complete sentences Other: diminished breath sounds Cardio Common normals: regular rate, regular rhythm, S1 normal heart sound and S2 normal heart sound Extremity Common normals: normal to inspection and full ROM Neuro Common normals: oriented x3, CN's II-XII intact bilaterally, moves all extremities and no focal motor deficits Psych Appearance: grossly normal Course Vital Signs Vital signs: Vital Signs Temperature 98 F 07/22/24 20:46 Pulse Rate 98 H 07/22/24 20:46 Respiratory Rate 18 07/22/24 20:46 Blood Pressure 127/73 07/22/24 20:46 Pulse Oximetry 100 07/22/24 20:46 Oxygen Delivery Method Room Air 07/22/24 20:46 Temperature 98 F 07/22/24 20:46 Pulse Rate 87 07/22/24 22:12 Respiratory Rate 21 H 07/22/24 22:12 Blood Pressure 107/90 07/22/24 21:30 Pulse Oximetry 98 07/22/24 22:12 Oxygen Delivery Method Room Air 07/22/24 22:12 MDM - SOB/Dyspnea MDM Narrative Medical decision making narrative: patient has history of COPD. Per her partner she is always short of breath. she now presents stating she feels short of breath. No chest pain or nausea. No fever. Exam with diminished breath sounds. Cxray with evidence of emphysema. no infiltrate. Patient resting comfortably while here. Given dose of solumedrol and 1 duoneb. She was ambulatory to the bathroom and was able to do so without difficulty. WBC normal and troponin neg. Patient discharged home to followup with her doctor Lab Data Labs: Lab Results 07/22/24 Range/Units 22:01 WBC 5.1 (4.0-11.0) 10^3/uL RBC 3.28 L (4.20-5.40) 10^6/uL Hgb 10.0 L (12.0-16.0) g/dL Hct 31.4 L (36.0-48.0) % MCV 95.7 (81.0-99.0) fL MCH 30.5 (26.7-34.0) pg MCHC 31.8 (29.9-35.2) g/dL RDW 14.9 (11.0-15.0) % Plt Count 238 (150-450) 10^3/uL MPV 9.4 L (9.5-13.5) fL Neut % (Auto) 37.3 L (43.0-75.0) % Lymph % (Auto) 40.7 (20.5-60.0) % Shelby % (Auto) 10.2 (1.7-12.0) % Eos % (Auto) 10.8 H (0.9-7.0) % Baso % (Auto) 1.0 (0.2-2.0) % Neut # (Auto) 1.9 (1.4-6.5) 10^3/uL Lymph # (Auto) 2.1 (1.2-3.8) 10^3/uL [place] # (Auto) 0.5 (0.3-0.8) 10^3/uL Eos # (Auto) 0.6 (0.0-0.7) 10^3/uL Baso # (Auto) 0.1 (0.0-0.1) 10^3/uL Abs Immat Gran (auto) 0.00 (0.00-0.03) 10^3/uL Imm/Tot Granulo (auto) 0.0 (0.0-0.5) % Sodium 139 (136-145) mmol/L Potassium 4.1 (3.5-5.1) mmol/L Chloride 108 H (98-107) mmol/L Carbon Dioxide 22.1 (21.0-32.0) mmol/L Anion Gap 13.0 BUN 14.0 (7.0-18.0) mg/dL Creatinine 0.75 (0.55-1.02) mg/dL Est GFR ( Amer) >60 (>=60 mL/min/1.73m^2) Est GFR (Non-Af Amer) >60 (>=60 mL/min/1.73m^2) BUN/Creatinine Ratio 18.7 Glucose 90 (74-106) mg/dL Calcium 8.0 L (8.5-10.1) mg/dL Troponin I High Sens 11.2 (4.0-51.3) pg/mL Discharge Plan Discharge Chief Complaint: Shortness of Breath/Dyspnea Clinical Impression: COPD exacerbation Patient Disposition: Home, Self-Care Mode of Transportation: Private Vehicle Prescriptions / Home Meds: No Action levothyroxine 75 mcg tablet 75 mcg PO DAILY albuterol sulfate 90 mcg/actuation HFA aerosol inhaler 2 puff INHALATION DAILY metoprolol succinate 25 mg tablet extended release 24 hr 12.5 mg PO DAILY (DME) nebulizers [Aeroneb Go Nebulizer] Misc See Rx Instructions .Route Qty: 1 0RF Rx Instructions: As directed please use for breathing treatment as directed albuterol sulfate 2.5 mg /3 mL (0.083 %) solution for nebulization 2.5 mg inhalation Q6H PRN (Reason: shortness of breath or wheezing) Qty: 180 0RF Creon 3,000-9,500- 15,000 unit capsule,delayed release(DR/EC) 1 cap PO TID cyanocobalamin (vitamin B-12) 1,000 mcg tablet 1,000 mcg PO .qd Print Language: Kiswahili Instructions: COPD (Chronic Obstructive Pulmonary Disease) (ED) Referrals: Effie Jackman MD [Primary Care Provider] - 1 week Discharge Date/Time: 07/22/24 23:56
--- NOTE | 2024-07-22 21:27 | ECG_ITS ---
The [facility] Test Date: 2024-07-22 Pat Name: CECELIA VILLALPANDO Department: Room: - Gender: Female Continuous [employer]: : 1940 Requested By: BRIAN PAYTON Order Number: [id number] Reading MD: TERRY SERRATO Measurements Intervals [place] Rate: 101 P: 76 MS: 138 QRS: 103 QRSD: 136 T: -11 QT: 388 QTc: 446 Interpretive Statements Pacemaker spikes present, paced rhythm with increased rate 9150 abnormal ECG Electronically Signed On 07-24-2024 7:42:23 EDT by TERRY SERRATO
--- NOTE | 2024-07-22 21:28 | XR_ITS ---
The [address] [address] Patient Name: CECELIA VILLALPANDO MRN: [id number] date: 1940 Sex: F Assigned Patient Location: ER Current Patient Location: ER Accession/Order Number: [id number] Exam Date: 07/22/2024 21:38 Report Date: 07/22/2024 23:26 At the request of: NATHALIE STANFORD Procedure: XR chest 1V PORTABLE CHEST X-RAY. INDICATION: Shortness of breath. COMPARISON: 06/28/2024. TECHNIQUE: Single AP portable chest radiograph. FINDINGS: TUBES AND LINES: Stable cardiac pacer leads appear LUNGS: Hyperexpanded hyperlucent lungs. No focal opacity. PLEURA: No effusions or pneumothorax. HEART AND MEDIASTINUM: Within normal limits for portable technique. OSSEOUS STRUCTURES: No acute abnormality. XR/XR chest 1V IMPRESSION: No acute findings. Electronically authenticated by: LEXX REYNA Date: 07/22/2024 23:26
[2024-07-22] MEDS: IPRATROPIUM/ALBUTEROL SULFATE 3 ML AMPUL.NEB IH (22:10)
[2024-07-22] MEDS: METHYLPREDNISOLONE SOD SUCC PF 125 MG/2 ML VIAL IVP (22:12)
[2024-07-22 22:15] LABS: Basophils Absolute Auto 0.1 10^3/uL (0.0-0.1); Eosinophils Absolute Auto 0.6 10^3/uL (0.0-0.7); Eosinophils Percent Auto 10.8 % (0.9-7.0); Hematocrit 31.4 % (36.0-48.0); Lymphocytes Absolute Auto 2.1 10^3/uL (1.2-3.8); Lymphocytes Percent Auto 40.7 % (20.5-60.0); Mean Corpuscular HGB Conc 31.8 g/dL (29.9-35.2); Mean Corpuscular Hemoglobin 30.5 pg (26.7-34.0); Mean Corpuscular Volume 95.7 fL (81.0-99.0); Mean Platelet Volume 9.4 fL (9.5-13.5); Monocytes Absolute Auto 0.5 10^3/uL (0.3-0.8); Monocytes Percent Auto 10.2 % (1.7-12.0); Neutrophils Absolute Auto 1.9 10^3/uL (1.4-6.5); Neutrophils Percent Auto 37.3 % (43.0-75.0); Platelet Count 238 10^3/uL (150-450); Red Blood Count 3.28 10^6/uL (4.20-5.40); Red Cell Distribution Width 14.9 % (11.0-15.0); White Blood Count 5.1 10^3/uL (4.0-11.0)
[2024-07-22 22:34] LABS: BUN Creatinine Ratio 18.7; Carbon Dioxide 22.1 mmol/L (21.0-32.0); Chloride 108 mmol/L (98-107); Estimated GFR (African America >60 (>=60 mL/min/1.73m^2); Estimated GFR (Non-African Ame >60 (>=60 mL/min/1.73m^2); Glucose 90 mg/dL (74-106); Potassium 4.1 mmol/L (3.5-5.1); Sodium 139 mmol/L (136-145); Troponin I High Sensitivity 11.2 pg/mL (4.0-51.3)
== END 2024-07-22 23:56 | disposition home or self-care (01) ==
PROVIDERS: Emergency Provider Internal Medicine; PCP Family Medicine
DX: J44.1 Chronic obstructive pulmonary disease with (acute) exacerbation (principal)
CPT/HCPCS: 36415; 71045; 80048; 84484; 85025; 93005; 94640; 96374; 99285; J2919

== ENCOUNTER 2024-08-03 17:43 | Emergency (ER) | payer MEDICARE, OTHER, SELFPAY ==
[2024-08-03 17:52] VITALS: BP 123/70; PULSE 100; O2SAT 98
--- OUTSIDE RECORDS SUMMARY | 2024-08-03 17:55 | XMS_ITS | CCD ---
Author Organization [facility] Care Team Providers Care Resolution Rep Name Role Phone PHYSICIAN, DEFAULT Unavailable Unavailable PHYSICIAN, DEFAULT Unavailable Unavailable DANIELLE COFFMAN Unavailable Unavailable JACK PINA Unavailable Unavailable NONSTAFF, [facility] Unavailable Unavailable Jack Sanches PRINT LINE OPERATOR-C Admitting UnavailJack Pandey PRINT LINE OPERATOR-C Attending UnavailJani Paul [facility] Unavailable JOSH, [...] sources) levoFLOXacin; Translations: [LEVOFLOXACIN] Drug Allergy 08-07-2017 [facility] Repository (3 sources) psyllium; Translations: [PSYLLIUM] Drug Allergy 02-22-2009 [facility] Repository (11 sources) levoFLOXacin Drug Allergy 02-05-2016 hives [facility] Repository (1 source) Penicillin Drug Allergy [facility] Repository (11 sources) Psyllium Drug Allergy 03-03-2013 anaphylaxis [facility] Repository Medications Current Medications Medication Drug Class(es) Dates Sig (Normalized) Sig (Original) Acetaminophen (10 sources) Acetaminophen Active Albuterol (10 sources) beta2-Adrenergic Agonist Albuterol Sulfate HFA Active amylase 07118 unt / lipase 3000 unt / protease 9500 unt delayed release oral capsule (10 sources) take 5045-6344 [IU] by mouth three times daily at mealtime Creon 7332-6972 UNIT as directed Orally tid w meals [...] 3 Chronic Other aftercare (1 source) Other exterminator (current) drug therapy; Translations: [OTH LIGHT BULB TESTER CURRENT DRUG THERAPY] Onset: 3 Episodic Other [...] Onset: 7 Unclassified (1 source) Fall / 48644() Onset: 7 Unclassified (1 source) Arm Injury / 03005() Onset: 7 Unclassified (1 source) R06.02 - [...] Range Facility Office Visiton 04-11-2024 Follow-up visit [id number] Asia Dominguez 1940 F Date Provider Department Center 04/11/2024 [id number]-PBOUNYPADMINI PATEL [facility] Family History Problem Relation Age of Onset Stroke Mother Other Mother No Known Problems Father Family Status - Relation Status Age at Mother Father Level of Service:95999 HI POSTOP FOLLOW UP VISIT RELATED TO ORIGINAL PX Normal [facility] HEMOGLOBIN AND HEMATOCRIT, B LOODon 04-05-2024 Hematocrit (Bld) [Volume fraction] 29.6 % Low 36.0-48.0 [facility] Comment on above: Performed By: #### L [id number] #### [facility] ([facility]) [address] [place] [address] Hemoglobin (Bld) [Mass/Vol] 9.8 g/dL Low 12.0-15.0 [facility] Comment on above: Performed By: #### L [id number] #### [facility] ([facility]) [address] [place] [address] 30on 04-04-2024 30 The patient is Moderately [...] the shift include stable vitals [facility] 30 Daily Case Managemen t Update Multidisciplinary rounds have been completed. Barriers to Discharge: Pending Clinical Course. Admitted with Third degree heart block-Planning PPM implantation today. Planning to Return [place] at [facility] living with on discharge. Diet: Dietary Orders (From admission, onward) Start Ordered 04/04/24 0001 Diet NPO Diet effective midnight Comments: Sips with medications Question: Reason for NPO: Answer: Operation/Procedure 04/03/24 0744 04/03/24 1233 Special Kitchen Request Once Comments: Grilled cheese on wheat, vanilla ice, fruit cup, 2 diet coke 04/03/24 1235 04/03/24 0824 Special Kitchen Request Once Comments: Plz 2 guamanian toast, butter and syrup.turkey sausage, grits with brown sugar and butter, raspberry botswanan,orange juice and coffee, cream and sugar 04/03/24 0826 04/02/24 1302 Special Kitchen Request Once Comments: Plz send hot roast beef sandwich, mashed potatoes and gravy, Chicken noodle soup, Ramos pie,diet cola, cottage cheese 04/02/24 1303 Physician Expected Discharge Date: 04/05/2024 Discharge Delays: PT Six Click Score: 23 OT Six Click Score: PT Recommendations: OT Recommendations: New Consults: [facility] 30 The patient is Moderately Stable - Low risk of patient condition declining or worsening The patient's goals for the shift include comfort The clinical goals for the shift include Vss, safety Over the shift, the patient did not make progress toward the following goals. Barriers to progression include na. Recommendations to address these barriers include na. [facility] 30on 04-03-2024 30 The patient [...] address these barriers include na. [facility] 30 The patient is Moderately Stable - Low risk of patient condition declining or worsening The patient's goals for the shift include comfort and rest The clinical goals for the shift include stable VS Over the shift, the patient continues to make progress toward the following goals. [facility] 30on 04-02-2024 30 The patient is Moderately Stable - Low risk of patient condition declining or worsening The patient's goals for the shift include The clinical goals for the shift include vss Over the shift, the patient did not make progress toward the following goals. Barriers to progression include na. Recommendations to address these barriers include na. [facility] 30 The patient is Moderately Stable - Low risk of patient condition declining or worsening The patient's goals for the shift include The clinical goals for the shift include vss Over the shift, the patient continues to make progress toward the following goal. [facility] CONSULTon 04-02-2024 CONSULT --- Attestation [...] QT Interval 532 QTC CALCULATION(BAZETT) 411 P Pony 82 R-Pony -60 T Wave Pony 71 Impression Sinus rhythm with complete heart [...] ECG 12 (more content not included)... Normal [facility] APTTon 04-01-2024 ACTIVATED PARTIAL THROMBOPLASTIN TIME IN PPP BY COAGULATION ASSAY 33.9 Seconds Normal 25.0-35.0 [facility] Comment on above: Result Comment: Clin ical significance of the APTT is questionable in the presence of heparin. Performed By: #### L [id number] ####[facility] ([facility])[address] [place] [address] B-TYPE NATRIURETIC PEPTIDEon 04-01-2024 Natriuretic peptide B (Bld) [Mass/Vol] 566 pg/mL High 0-100 [facility] Comment on above: Performed By: #### L [id number] #### [facility] ([facility]) [address] [place] [address] BASIC METABOLIC PANELon - Anion gap [Moles/Vol] 9 mmol/L Normal 7-20 [facility] Comment on above: Performed By: #### L [id number] ####[facility] ([facility])[address] [place] [address] Calcium [Mass/Vol] 8.0 mg/dL Low 8.6-10.[address] [facility] Comment on above: Performed By: #### L [id number] ####[facility] ([facility])[address] [place] [address] Chloride [Moles/Vol] 112 mmol/L High 98-107 [facility] Comment on above: Performed By: #### L [id number] ####[facility] ([facility])[address] [place] [address] CO2 [Moles/Vol] 18 mmol/L Low 21-31 [facility] Comment on above: Performed By: #### L [id number] ####[facility] [place] [address] Creatinine [Mass/Vol] 0.83 mg/dL Normal 0.60-1.20 [facility] Comment on above: Performed By: #### L [id number] ####[facility] [place] [address] GLOMERULAR FILTRATION RATE ML/MIN/1.73 SQ M.PREDICTED 69.0 mL/min/1.73m*2 Normal >60.0 [facility] Comment on above: Result Comment: [facility]???s estimated glomerular filtration rate (eGFR) [...] of individuals. Performed By: #### L [id number] ####[facility] [place] [address] Glucose [Mass/Vol] 91 mg/dL Normal 70-[address] [facility] Comment on above: Performed By: #### L [id number] ####[facility] ([facility])[address] [place] [address] Potassium [Moles/Vol] 4.3 mmol/L Normal 3.5-5.1 [facility] Comment on above: Performed By: #### L [id number] ####[facility] ([facility])[address] [place] [address] Sodium [Moles/Vol] 135 mmol/L Low 136-[address] [facility] Comment on above: Performed By: #### L [id number] ####[facility] [place] [address] Urea nitrogen [Mass/Vol] 19 mg/dL Normal 7-25 [facility] Comment on above: Performed By: #### L [id number] ####[facility] ([facility])[address] [place] [address] UREA NITROGEN/CREATININE (MASS RATIO) IN SER/PLAS 22.9 Normal [facility] Comment on above: Performed By: #### L [id number] ####[facility] ([facility])[address] [place] [address] CBC WITH AUTO DIFFERENTIALon 04-01-2024 Basophils (Bld) [#/Vol] 0.04 10*3/uL Normal 0.00-0.20 [facility] Comment on above: Performed By: #### L [id number] #### [facility] ([facility]) [address] [place] [address] Basophils/100 WBC (Bld) 1.0 % Normal 0.0-1.0 [facility] Comment on above: Performed By: #### L [id number] #### [facility] ([facility]) [address] [place] [address] Eosinophils (Bld) [#/Vol] 0.56 10*3/uL High 0.00-0.50 [facility] Comment on above: Performed By: #### L [id number] #### [facility] [address] [place] [address] Eosinophils/100 WBC (Bld) 13.9 % High 0.0-6.0 [facility] Comment on above: Performed By: #### L [id number] #### [facility] ([facility]) [address] [place] [address] Erythrocyte distribution width (RBC) [Ratio] 14.2 % Normal 11.5-15.0 [facility] Comment on above: Performed By: #### L [id number] #### [facility] ([facility]) [address] [place] [address] ERYTHROCYTE MEAN CORPUSCULAR HEMOGLOBIN CONCENTRATION (G/DL) BY AUTOMATED 31.3 g/dL Low 32.0-35.0 [facility] Comment on above: Performed By: #### L [id number] #### [facility] ([facility]) [address] [place] [address] Hematocrit (Bld) [Volume fraction] 31.3 % Low 36.0-48.0 [facility] Comment on above: Performed By: #### L [id number] #### [facility] ([facility]) [address] [place] [address] Hemoglobin (Bld) [Mass/Vol] 9.8 g/dL Low 12.0-15.0 [facility] Comment on above: Performed By: #### L [id number] #### [facility] ([facility]) [address] [place] [address] Immature granulocytes (Bld) [#/Vol] 0.00 10*3/uL Normal 0.00-0.20 [facility] Comment on above: Performed By: #### L [id number] #### [facility] [address] [place] [address] Immature granulocytes/100 WBC (Bld) 0.0 % Normal 0.0-1.0 [facility] Comment on above: Performed By: #### L [id number] #### [facility] ([facility]) [address] [place] [address] Lymphocytes (Bld) [#/Vol] 1.85 10*3/uL Normal 1.20-4.00 [facility] Comment on above: Performed By: #### L [id number] #### [facility] [address] [place] [address] Lymphocytes/100 WBC (Bld) 45.9 % High 20.0-45.0 [facility] Comment on above: Performed By: #### L [id number] #### [facility] [address] [place] [address] MCH (RBC) [Entitic mass] 30.9 pg Normal 27.0-33.0 [facility] Comment on above: Performed By: #### L [id number] #### [facility] [address] [place] [address] MCV (RBC) [Entitic vol] 98.7 fL High 82.0-98.0 [facility] Comment on above: Performed By: #### L [id number] #### [facility] ([facility]) [address] [place] [address] Monocytes (Bld) [#/Vol] 0.45 10*3/uL Normal 0.10-1.00 [facility] Comment on above: Performed By: #### L [id number] #### [facility] [address] [place] [address] Monocytes/100 WBC (Bld) 11.2 % Normal 5.0-12.0 [facility] Comment on above: Performed By: #### L [id number] #### [facility] [address] [place] [address] Neutrophils (Bld) [#/Vol] 1.13 10*3/uL Low 1.60-7.60 [facility] Comment on above: Performed By: #### L [id number] #### [facility] [address] [place] [address] Neutrophils/100 WBC (Bld) 28.0 % Low 40.0-72.0 [facility] Comment on above: Performed By: #### L [id number] #### [facility] [address] [place] [place] [address] NRBC (PER 100 WBCS) BY AUTOMATED COUNT 0.0 % Normal 0 [facility] Comment on above: Performed By: #### L [id number] #### [facility] ([facility]) [address] [place] [address] PLATELETS (10*3/UL) IN BLOOD AUTOMATED COUNT 177 10*3/uL Normal 150-400 [facility] Comment on above: Performed By: #### L [id number] #### [facility] ([facility]) [address] [place] [address] RBC (Bld) [#/Vol] 3.17 10*6/uL Low 3.80-5.00 [facility] Comment on above: Performed By: #### L [id number] #### [facility] ([facility]) [address] [place] [address] WBC (Bld) [#/Vol] 4.03 10*3/uL Normal 4.00-10.60 [facility] Comment on above: Performed By: #### L [id number] #### [facility] ([facility]) [address] [place] [address] EDPROVon 04-01-2024 EDPROV --- Attestation signed by Felicia Medina DO at 04/02/2024 3:16 PM 2022 Emergency Medicine Coding Guide from [employer] on 04/02/2024 All calculations should be rechecked [...] Patient presents with Bradycardia Pt sent by [place] [facility]ology for bradycardia. Pt c/o occasional SOB but denies being symptomatic otherwise. HPI 83-year-old female with history of Alzheimer disease, asthma, A-fib, COPD, and hypothyroidism presenting due to concerns of third-degree heart block. Patient evaluated at mammalogist office today after patient was found to be bradycardic at neurologist office. Per cardiology patient was in third-degree heart block and sent to be evaluated for possible pacemaker placement. Patient states that she feels tired all the time but denies any other symptoms with it. [place] Coma Scale Score: 15 Patient History Past Medical History: Diagnosis Date Abnormal ECG Alzheimer disease ([facility]) Asthma Atrial fibrillation ([facility]) Bradycardia COPD (chronic obstructive pulmonary disease) ([facility]) Dementia ([facility]) Hypothyroidism RLS (restless legs syndrome) Past Surgical [...] 1843 Rate: 36 Rhythm: 3rd degree block Pony: LAD QRS: 142 HI: n/a Qtc: 411 Other findings: TWI in V3 [TS] ED Course User Index [TS] Felicia Medina DO Diagnoses as of 04/01/242002 Third degree heart block (CMS/HCC) Medical Decision Making Reviewed patie (more content not included)... Normal [facility] Office Visiton 04-01-2024 Follow-up visit [id number] Asia Dominguez 1940 F Date Provider Department Center 04/01/2024 [id number]-MOVOWLPADMINI BILLINGS [facility] Family History Problem Relation Age of Onset Stroke Mother Other Mother No Known Problems Father Family Status - Relation Status Age at Mother Father Level of Service:15854 HI OFFICE/OUTPATIENT NEW MODERATE MDM 45 MINUTES Normal [facility] PROTIME-INRon 04-01-2024 INR IN PPP BY COAGULATION ASSAY 1.18 High 0.90-1.10 [facility] Comment on above: Result Comment: ACCC [...] 1995;108:231S-246S. Performed By: #### L [id number] #### [facility] [employer]) [address] [place] [address] PROTHROMBIN TIME (PT) IN PPP BY COAGULATION ASSAY 15.0 Seconds High 12.3-14.8 [facility] Comment on above: Performed By: #### L [id number] #### [facility] [employer]) [address] [place] [address] T4, FREEon 04-01-2024 THYROXINE (T4) FREE (NG/DL) IN SER/PLAS 0.77 ng/dL Normal 0.71-1.85 [facility] Comment on above: Performed By: #### L [id number] ####[facility] [employer])[address] [place] [address] TROPONIN Ion 04-01-2024 Troponin I.cardiac [Mass/Vol] 0.04 ng/mL Normal 0.00-0.04 [facility] Comment on above: Performed By: #### L [id number] #### [facility] ([facility]) [address] [place] [address] TSH3 REFLEX TO FT4on 024 THYROTROPIN (MIU/L) IN SER/PLAS BY DETECTION LIMIT <= 0.05 MIU/L 6.13 mIU/L High 0.34-5.60 [facility] Comment on above: Performed By: #### L [id number] #### [facility] ([facility]) [address] [place] [address] CULTURE URINEon 01-02-2023 CULTURE URINE Isolate 1 [...] F Nitrofurantoin <=16 S F Normal [facility] Comment on above: Performed By: #### C BC #### [facility] [address] [place] [address] Dr. Con Santana BNPon 01-01-2023 Natriuretic peptide B (Bld) [Mass/Vol] 6147.0 pg/mL Critically high <=1,800.0 [facility] Comment on above: Performed By: #### H STROPN #### [facility] [address] [place] [address] Dr. Con Santana CBC AUTO DIFFon 01-01-2023 BASO # 0.0 103/ul Normal 0.0-0.1 [facility] Comment on above: Performed By: #### C BC #### [facility] [address] [place] [address] [address] Con Santana Basophils/100 WBC (Bld) 0.2 % Normal 0.2-2.0 [facility] Comment on above: Performed By: #### C BC #### [facility] [address] [place] [address] Dr. Con Santana EO # 0.0 103/ul Normal 0.0-0.7 [facility] Comment on above: Performed By: #### C BC #### [facility] [address] [place] [address] Dr. Con Santana Eosinophils/100 WBC (Bld) 0.0 % Critically low 0.9-7.0 [facility] Comment on above: Performed By: #### C BC #### [facility] [address] [place] [address] Dr. Con Santana Erythrocyte distribution width (RBC) [Ratio] 14.4 % Normal 11.0-15.0 [facility] Comment on above: Performed By: #### C BC #### [facility] [address] [place] [address] Dr. Con Santana Hematocrit (Bld) [Volume fraction] 28.5 % Critically low 36.0-48.0 [facility] Comment on above: Performed By: #### C BC #### [facility] [address] [place] [address] Dr. Con Santana Hemoglobin (Bld) [Mass/Vol] 9.1 g/dL Critically low 12.0-16.0 [facility] Comment on above: Performed By: #### C BC #### [facility] [address] [place] [address] Dr. Con Santana IG # 0.14 10e3/ul Critically high 0.00-0.03 [facility] Comment on above: Performed By: #### C BC #### [facility] [address] [place] [address] Dr. Con Santana IG % 1.1 % Critically high 0.0-0.5 [facility] Comment on above: Performed By: #### C BC #### [facility] [address] [place] [address] [address] Con Santana LYMPH # 0.9 103/ul Critically low 1.2-3.8 [facility] Comment on above: Performed By: #### C BC #### [facility] [address] [place] [address] Dr. Con Santana Lymphocytes/100 WBC (Bld) 7.3 % Critically low 20.5-60.0 [facility] Comment on above: Performed By: #### C BC #### [facility] [address] [place] [address] [address] Con Santana MANUAL DIFF REQ NO Normal [facility] Comment on above: Performed By: #### C BC #### [facility] [address] [place] [address] Dr. Con Santana MCH (RBC) [Entitic mass] 31.1 pg Normal 26.7-34.0 [facility] Comment on above: Performed By: #### C BC #### [facility] [address] [place] [address] Dr. Con Santana MCHC (RBC) [Mass/Vol] 31.9 g/dL Normal 29.9-35.2 [facility] Comment on above: Performed By: #### C BC #### [facility] [address] [place] [address] Dr. Con Santana MCV (RBC) [Entitic vol] 97.3 fL Normal 81.0-99.0 [facility] Comment on above: Performed By: #### C BC #### [facility] [address] [place] [address] Dr. Con Santana MONO # 1.3 103/ul Critically high 0.3-0.8 [facility] Comment on above: Performed By: #### C BC #### [facility] [address] [place] [address] Dr. Con Santnaa Monocytes/100 WBC (Bld) 10.0 % Normal 1.7-12.0 [facility] Comment on above: Performed By: #### C BC #### [facility] [address] [place] [address] [address] Con Santana NEUT # 10.5 103/ul Critically high 1.4-6.5 [facility] Comment on above: Performed By: #### C BC #### [facility] [address] [place] [address] Dr. Con Santana Neutrophils/100 WBC (Bld) 81.4 % Critically high 43.0-75.0 [facility] Comment on above: Performed By: #### C BC #### [facility] [address] [place] [address] Dr. Con Santana Platelet mean volume (Bld) [Entitic vol] 10.5 fL Normal 9.5-13.5 [facility] Comment on above: Performed By: #### C BC #### [facility] [address] [place] [address] Dr. Con Santana PLT 179 103/ul Normal 150-450 [facility] Comment on above: Performed By: #### C BC #### [facility] [address] [place] [address] Dr. Con Santana RBC 2.93 106/ul Critically low 4.20-5.40 [facility] Comment on above: Performed By: #### C BC #### [facility] [address] [place] [address] Dr. Con Santana WBC 12.8 103/ul Critically high 4.0-11.0 [facility] Comment on above: Performed By: #### C BC #### [facility] [address] [place] [address] Dr. Con Santana POINT OF CARE GLUCOSEon Glucose [Mass/Vol] 97 mg/dL Normal 74-106 [facility] Comment on above: Performed By: #### C BC #### [facility] [address] [place] [address] Dr. Con Santana PROF CHEM 8 (BAS METB)on Anion gap [Moles/Vol] 14.3 mmol/L Normal [facility] Comment on above: Performed By: #### H STROPN #### [facility] [address] [place] [address] [address] Con Santana Calcium [Mass/Vol] 7.2 mg/dL Critically low 8.5-10.1 [facility] Comment on above: Performed By: #### H STROPN #### [facility] [address] [place] [address] [address] Con Santana Chloride [Moles/Vol] 108 mmol/L Critically high 98-107 [facility] Comment on above: Performed By: #### H STROPN #### [facility] [address] [place] [address] [address] Con Santana CO2 [Moles/Vol] 22.6 mmol/L Normal 21.0-32.0 [facility] Comment on above: Performed By: #### H STROPN #### [facility] [address] [place] [address] [address] Con Santana Creatinine [Mass/Vol] 1.08 mg/dL Critically high 0.55-1.02 [facility] Comment on above: Performed By: #### H STROPN #### [facility] [address] [address] [address] Con Santana EGFR-AF RUSSIAN 59 mL/min/1.73m2 Critically low >=60 [facility] Comment on above: Performed By: #### H STROPN #### [facility] [address] [address] [address] Con Santana EGFR-NON AF RUSSIAN 48 mL/min/1.73m2 Critically low >=60 [facility] Comment on above: Performed By: #### H STROPN #### [facility] [address] [address] [address] Con Santana Glucose [Mass/Vol] 100 mg/dL Normal 74-106 [facility] Comment on above: Performed By: #### H STROPN #### [facility] [address] [address] [address] Con Santana Potassium [Moles/Vol] 3.9 mmol/L Normal 3.5-5.1 [facility] Comment on above: Performed By: #### H STROPN #### [facility] [address] [address] [address] Con Santana Sodium [Moles/Vol] 141 mmol/L Normal 136-145 [facility] Comment on above: Performed By: #### H STROPN #### [facility] [address] [place] [address] Dr. Con Santana Urea nitrogen [Mass/Vol] 27.0 mg/dL Critically high 7.0-18.0 [facility] Comment on above: Performed By: #### H STROPN #### [facility] [address] [place] [address] Dr. Con Santana Urea nitrogen/Creatinine [Mass ratio] 25.0 mg/mg Normal [facility] Comment on above: Performed By: #### H STROPN #### [facility] [address] [place] [address] Dr. Con Santana BNPon 12-31-2022 Natriuretic peptide B (Bld) [Mass/Vol] 7148.0 pg/mL Critically high <=1,800.0 [facility] Comment on above: Performed By: #### H STROPN #### [facility] [address] [place] [address] Dr. Con Santana CBC W MANUAL DIFFon 01-01-20 23 ATYPICAL LYMPH # Normal [facility] Comment on above: Performed By: #### P OCGLUC #### [facility] [address] [place] [address] Dr. Con Santana ATYPICAL LYMPH % Normal [facility] Comment on above: Performed By: #### P OCGLUC #### [facility] [address] [place] [address] Dr. Con Santana BAND # 0.0 103/ul Normal 0.0-0.3 [facility] Comment on above: Performed By: #### P OCGLUC #### [facility] [address] [place] [address] Dr. Con Santana BAND % 0 % Normal 0-5 [facility] Comment on above: Performed By: #### P OCGLUC #### [facility] [address] [place] [address] Dr. Con Santana BASOM # 0.00 103/ul Normal 0.00-0.10 [facility] Comment on above: Performed By: #### P OCGLUC #### [facility] [address] [address] [address] Con Santana BASOM % 0.0 % Critically low 0.2-2.0 [facility] Comment on above: Performed By: #### P OCGLUC #### [facility] [address] [address] [address] Con Santana BLAST # Normal [facility] Comment on above: Performed By: #### P OCGLUC #### [facility] [address] [address] [address] Con Santana BLAST % Normal [facility] Comment on above: Performed By: #### P OCGLUC #### [facility] [address] [address] [address] Con Santana CORRECTED WBC Normal 4.0-11.0 [facility] Comment on above: Performed By: #### P OCGLUC #### [facility] [address] [address] [address] Con Santana EOS # 0.00 103/ul Normal 0.00-0.70 [facility] Comment on above: Performed By: #### P OCGLUC #### [facility] [address] [address] [address] Con Santana EOS% 0.0 % Critically low 0.9-7.0 [facility] Comment on above: Performed By: #### P OCGLUC #### [facility] [address] [address] [address] Con Santana HCT 27.8 % Critically low 36.0-48.0 [facility] Comment on above: Performed By: #### P OCGLUC #### [facility] [address] [address] [address] Con Santana HGB 9.0 g/dl Critically low 12.0-16.0 [facility] Comment on above: Performed By: #### P OCGLUC #### [facility] [address] [address] [address] Con Santana LYMPHM # 0.53 103/ul Critically low 1.20-3.80 [facility] Comment on above: Performed By: #### P OCGLUC #### [facility] [address] [address] [address] Con Santana LYMPHM% 5.0 % Critically low 20.5-60.0 [facility] Comment on above: Performed By: #### P OCGLUC #### [facility] [address] [address] [address] Con Santana MCH 31.0 pg Normal 26.7-34.0 [facility] Comment on above: Performed By: #### P OCGLUC #### [facility] [address] [address] [address] Con Santana MCHC 32.4 g/dl Normal 29.9-35.2 [facility] Comment on above: Performed By: #### P OCGLUC #### [facility] [address] [address] [address] Con Santana MCV 95.9 fL Normal 81.0-99.0 [facility] Comment on above: Performed By: #### P OCGLUC #### [facility] [address] [address] [address] Con Santana METAMYELOCYTE # Normal [facility] Comment on above: Performed By: #### P OCGLUC #### [facility] [address] [address] [address] Con Santana METAMYELOCYTE % Normal [facility] Comment on above: Performed By: #### P OCGLUC #### [facility] [address] [address] [address] Con Santana MONOM# 0.11 103/ul Critically low 0.30-0.80 [facility] Comment on above: Performed By: #### P OCGLUC #### [facility] [address] [address] [address] Con Santana MONOM% 1.0 % Critically low 1.7-12.0 [facility] Comment on above: Performed By: #### P OCGLUC #### [facility] [address] [address] [address] Con Santana MPV 10.9 fL Normal 9.5-13.5 [facility] Comment on above: Performed By: #### P OCGLUC #### [facility] [address] [address] [address] Con Santana MYELOCYTE # Normal [facility] Comment on above: Performed By: #### P OCGLUC #### [facility] [address] [address] [address] Con Santana MYELOCYTE % Normal [facility] Comment on above: Performed By: #### P OCGLUC #### [facility] [address] [place] [address] Dr. Con Santana NRBC Normal [facility] Comment on above: Performed By: #### P OCGLUC #### [facility] [address] [address] [address] Con Santana PLT 184 103/ul Normal 150-450 [facility] Comment on above: Performed By: #### P OCGLUC #### [facility] [address] [address] [address] Con Santana RBC 2.90 106/ul Critically low 4.20-5.40 [facility] Comment on above: Performed By: #### P OCGLUC #### [facility] [address] [address] [address] Con Santana RDW 14.5 % Normal 11.0-15.0 [facility] Comment on above: Performed By: #### P OCGLUC #### [facility] [address] [address] [address] Con Santana SEG # 9.96 103/ul Critically high 1.40-6.50 [facility] Comment on above: Performed By: #### P OCGLUC #### [facility] [address] [place] [address] Dr. Con Santana SEG % 94.0 % Critically high 43.0-75.0 [facility] Comment on above: Performed By: #### P OCGLUC #### [facility] [address] [address] [address] Con Santana WBC 10.6 103/ul Normal 4.0-11.0 [facility] Comment on above: Performed By: #### P OCGLUC #### [facility] [address] [address] [address] Con Santana POINT OF CARE GLUCOSEon Glucose [Mass/Vol] 145 mg/dL Critically high 74-106 [facility] Comment on above: Performed By: #### I NFLUAB #### [facility] [address] [address] [address] Con Santana Glucose [Mass/Vol] 162 mg/dL Critically high [facility] Comment on above: Performed By: #### E LISA JAVIER #### [facility] [address] [place] [address] Dr. Con Santana Glucose [Mass/Vol] 141 mg/dL Critically high 74-106 [facility] Comment on above: Performed By: #### C BC #### [facility] [address] [place] [address] Dr. Con Santana PROF CHEM 8 (BAS METB)on Anion gap [Moles/Vol] 16.5 mmol/L Normal [facility] Comment on above: Performed By: #### H STROPN #### [facility] [address] [place] [address] Dr. Con Santana Calcium [Mass/Vol] 7.3 mg/dL Critically low 8.5-10.1 [facility] Comment on above: Performed By: #### H STROPN #### [facility] [address] [place] [address] Dr. Con Santana Chloride [Moles/Vol] 108 mmol/L Critically high 98-107 [facility] Comment on above: Performed By: #### H STROPN #### [facility] [address] [place] [address] Dr. Con Santana CO2 [Moles/Vol] 18.5 mmol/L Critically low 21.0-32.0 [facility] Comment on above: Performed By: #### H STROPN #### [facility] [address] [address] [address] Con Santana Creatinine [Mass/Vol] 1.14 mg/dL Critically high 0.55-1.02 [facility] Comment on above: Performed By: #### H STROPN #### [facility] [address] [address] [address] Con Santana EGFR-AF RUSSIAN 55 mL/min/1.73m2 Critically low >=60 [facility] Comment on above: Performed By: #### H STROPN #### [facility] [address] [place] [address] Dr. Con Snatana EGFR-NON AF RUSSIAN 45 mL/min/1.73m2 Critically low >=60 [facility] Comment on above: Performed By: #### H STROPN #### [facility] [address] [address] [address] Con Santana Glucose [Mass/Vol] 151 mg/dL Critically high 74-106 [facility] Comment on above: Performed By: #### H STROPN #### [facility] [address] [place] [address] Dr. Con Santana Potassium [Moles/Vol] 4.0 mmol/L Normal 3.5-5.1 [facility] Comment on above: Performed By: #### H STROPN #### [facility] [address] [address] [address] Con Santana Sodium [Moles/Vol] 139 mmol/L Normal 136-145 [facility] Comment on above: Performed By: #### H STROPN #### [facility] [address] [address] [address] Con Santana Urea nitrogen [Mass/Vol] 27.0 mg/dL Critically high 7.0-18.0 [facility] Comment on above: Performed By: #### H STROPN #### [facility] [address] [place] [address] Dr. Con Santana Urea nitrogen/Creatinine [Mass ratio] 23.7 mg/mg Normal [facility] Comment on above: Performed By: #### H STROPN #### [facility] [address] [place] [address] Dr. Con Santana XR CHEST 2 Von [...] ELEAZAR GUERRA Date: 2022-12-31 11:27 Normal [facility] BNPon 12-30-2022 Natriuretic peptide B (Bld) [Mass/Vol] 7840.0 pg/mL Critically high <=1,800.0 [facility] Comment on above: Performed By: #### I NFLUAB #### [facility] [address] [place] [address] Dr. Con Santana CBC AUTO DIFFon 12-30-2022 BASO # 0.0 103/ul Normal 0.0-0.1 [facility] Comment on above: Performed By: #### P OCGLUC #### [facility] [address] [place] [address] Dr. Con Santana Basophils/100 WBC (Bld) 0.2 % Normal 0.2-2.0 [facility] Comment on above: Performed By: #### P OCGLUC #### [facility] [address] [place] [address] Dr. Con Santana EO # 0.0 103/ul Normal 0.0-0.7 [facility] Comment on above: Performed By: #### P OCGLUC #### [facility] [address] [place] [address] Dr. Con Santana Eosinophils/100 WBC (Bld) 0.0 % Critically low 0.9-7.0 [facility] Comment on above: Performed By: #### P OCGLUC #### [facility] [address] [place] [address] Dr. Con Santana Erythrocyte distribution width (RBC) [Ratio] 13.6 % Normal 11.0-15.0 [facility] Comment on above: Performed By: #### P OCGLUC #### [facility] [address] [place] [address] Dr. Con Santana Hematocrit (Bld) [Volume fraction] 28.5 % Critically low 36.0-48.0 [facility] Comment on above: Performed By: #### P OCGLUC #### [facility] [address] [place] [address] Dr. Con Santana Hemoglobin (Bld) [Mass/Vol] 9.5 g/dL Critically low 12.0-16.0 [facility] Comment on above: Performed By: #### P OCGLUC #### [facility] [address] [place] [address] Dr. Con Santana IG # 0.09 10e3/ul Critically high 0.00-0.03 [facility] Comment on above: Performed By: #### P OCGLUC #### [facility] [address] [place] [address] Dr. Con Santana IG % 0.8 % Critically high 0.0-0.5 [facility] Comment on above: Performed By: #### P OCGLUC #### [facility] [address] [place] [address] Dr. Con Santana LYMPH # 0.8 103/ul Critically low 1.2-3.8 [facility] Comment on above: Performed By: #### P OCGLUC #### [facility] [address] [place] [address] Dr. Con Santana Lymphocytes/100 WBC (Bld) 6.9 % Critically low 20.5-60.0 [facility] Comment on above: Performed By: #### P OCGLUC #### [facility] [address] [place], [place] [id number] Dr. Con Santana MANUAL DIFF REQ NO Normal [facility] Comment on above: Performed By: #### P OCGLUC #### [facility] [address] [place] [address] Dr. Con Santana MCH (RBC) [Entitic mass] 31.3 pg Normal 26.7-34.0 [facility] Comment on above: Performed By: #### P OCGLUC #### [facility] [address] [place] [address] Dr. Con Santana MCHC (RBC) [Mass/Vol] 33.3 g/dL Normal 29.9-35.2 [facility] Comment on above: Performed By: #### P OCGLUC #### [facility] [address] [place] [address] Dr. Con Santana MCV (RBC) [Entitic vol] 93.8 fL Normal 81.0-99.0 [facility] Comment on above: Performed By: #### P OCGLUC #### [facility] [address] [place] [address] Dr. Con Santana MONO # 0.4 103/ul Normal 0.3-0.8 [facility] Comment on above: Performed By: #### P OCGLUC #### [facility] [address] [place] [address] Dr. Con Santana Monocytes/100 WBC (Bld) 3.1 % Normal 1.7-12.0 [facility] Comment on above: Performed By: #### P OCGLUC #### [facility] [address] [place] [address] Dr. Con Santana NEUT # 10.4 103/ul Critically high 1.4-6.5 [facility] Comment on above: Performed By: #### P OCGLUC #### [facility] [address] [place] [address] Dr. Con Santana Neutrophils/100 WBC (Bld) 89.0 % Critically high 43.0-75.0 [facility] Comment on above: Performed By: #### P OCGLUC #### [facility] [address] [place] [address] Dr. Con Santana Platelet mean volume (Bld) [Entitic vol] 10.8 fL Normal 9.5-13.5 [facility] Comment on above: Performed By: #### P OCGLUC #### [facility] [address] [address] [address] Con Santana PLT 189 103/ul Normal 150-450 [facility] Comment on above: Performed By: #### P OCGLUC #### [facility] [address] [address] [address] Con Santana RBC 3.04 106/ul Critically low 4.20-5.40 [facility] Comment on above: Performed By: #### P OCGLUC #### [facility] [address] [address] [address] Con Santana WBC 11.7 103/ul Critically high 4.0-11.0 [facility] Comment on above: Performed By: #### P OCGLUC #### [facility] [address] [address] [address] Con Santana POINT OF CARE GLUCOSEon 04-0 Glucose [Mass/Vol] 194 mg/dL Critically high 74-106 [facility] Comment on above: Performed By: #### C BC #### [facility] [address] [address] [address] Con Santana Glucose [Mass/Vol] 191 mg/dL Critically high 74-106 [facility] Comment on above: Performed By: #### I NFLUAB #### [facility] [address] [place] [address] Dr. Con Santana Glucose [Mass/Vol] 169 mg/dL Critically high 74-106 [facility] Comment on above: Performed By: #### P OCGLUC #### [facility] [address] [address] [address] Con Santana Glucose [Mass/Vol] 173 mg/dL Critically high 74-106 [facility] Comment on above: Performed By: #### I NFLUAB #### [facility] [address] [address] [address] Con Santana PROF CHEM 8 (BAS METB)on Anion gap [Moles/Vol] 18.8 mmol/L Normal [facility] Comment on above: Performed By: #### I NFLUAB #### [facility] [address] [place] [address] Dr. Con Santana Calcium [Mass/Vol] 7.3 mg/dL Critically low 8.5-10.1 [facility] Comment on above: Performed By: #### I NFLUAB #### [facility] [address] [address] [address] Con Santana Chloride [Moles/Vol] 109 mmol/L Critically high 98-107 [facility] Comment on above: Performed By: #### I NFLUAB #### [facility] [address] [place] [address] Dr. Con Santana CO2 [Moles/Vol] 17.3 mmol/L Critically low 21.0-32.0 [facility] Comment on above: Performed By: #### I NFLUAB #### [facility] [address] [place] [address] Dr. Con Santana Creatinine [Mass/Vol] 1.28 mg/dL Critically high 0.55-1.02 [facility] Comment on above: Performed By: #### I NFLUAB #### [facility] [address] [place] [address] Dr. Con Santana EGFR-AF RUSSIAN 48 mL/min/1.73m2 Critically low >=60 [facility] Comment on above: Performed By: #### I NFLUAB #### [facility] [address] [address] [address] Con Santana EGFR-NON AF RUSSIAN 40 mL/min/1.73m2 Critically low >=60 [facility] Comment on above: Performed By: #### I NFLUAB #### [facility] [address] [place] [address] Dr. Con Santana Glucose [Mass/Vol] 161 mg/dL Critically high 74-106 [facility] Comment on above: Performed By: #### I NFLUAB #### [facility] [address] [address] [address] Con Santana Potassium [Moles/Vol] 3.1 mmol/L Critically low 3.5-5.1 [facility] Comment on above: Performed By: #### I NFLUAB #### [facility] [address] [address] [address] Con Santana Sodium [Moles/Vol] 142 mmol/L Normal 136-145 [facility] Comment on above: Performed By: #### I NFLUAB #### [facility] [address] [place] [address] Dr. Con Santana Urea nitrogen [Mass/Vol] 24.0 mg/dL Critically high 7.0-18.0 [facility] Comment on above: Performed By: #### I NFLUAB #### [facility] [address] [place] [address] Dr. Con Santana Urea nitrogen/Creatinine [Mass ratio] 18.8 mg/mg Normal [facility] Comment on above: Performed By: #### I NFLUAB #### [facility] [address] [place] [address] Dr. Con Santana UA RANDOM W/MICROSCOPICon BACTERIA NONE SEEN Normal NONE SEEN [facility] Comment on above: Performed By: #### P OCGLUC #### [facility] [address] [place] [address] Dr. Con Santana Bilirubin Ql (U) Negative Normal NEGATIVE [facility] Comment on above: Performed By: #### P OCGLUC #### [facility] [address] [place] [address] Dr. Con Santana CAST NONE SEEN Normal NONE SEEN [facility] Comment on above: Performed By: #### P OCGLUC #### [facility] [address] [place] [address] Dr. Con Santana Clarity (U) CLEAR Normal CLEAR [facility] Comment on above: Performed By: #### P OCGLUC #### [facility] [address] [place] [address] Dr. Con Santana Color (U) LT. YELLOW Normal YELLOW [facility] Comment on above: Performed By: #### P OCGLUC #### [facility] [address] [address] [address] Con Santana Crystals LM Nom (Urine sed) NONE SEEN Normal NONE SEEN [facility] Comment on above: Performed By: #### P OCGLUC #### [facility] [address] [address] [address] Con Santana Epithelial cells LM Ql (Urine sed) FEW Abnormal NONE SEEN /RARE [facility] Comment on above: Performed By: #### P OCGLUC #### [facility] [address] [address] [address] Con Santana Glucose Ql (U) Negative Normal NEGATIVE [facility] Comment on above: Performed By: #### P OCGLUC #### [facility] [address] [place] [address] Dr. Con Santana Hemoglobin Ql (U) Negative Normal NEGATIVE [facility] Comment on above: Performed By: #### P OCGLUC #### [facility] [address] [address] [address] Con Santana Ketones Ql (U) Negative Normal NEGATIVE [facility] Comment on above: Performed By: #### P OCGLUC #### [facility] [address] [address] [address] Con Santana LEUKOCYTES TRACE Abnormal NEGATIVE [facility] Comment on above: Performed By: #### P OCGLUC #### [facility] [address] [address] [address] Con Santana MUCOUS NONE SEEN Normal NONE SEEN [facility] Comment on above: Performed By: #### P OCGLUC #### [facility] [address] [address] [address] Con Santana Nitrite Ql (U) Negative Normal NEGATIVE [facility] Comment on above: Performed By: #### P OCGLUC #### [facility] [address] [place] [address] Dr. Con Santana pH (U) 5.5 [pH] Normal 5-9 [facility] Comment on above: Performed By: #### P OCGLUC #### [facility] [address] [address] [address] Con Santana RBC 0-2 Normal 0-2 [facility] Comment on above: Performed By: #### P OCGLUC #### [facility] [address] [address] [address] Con Santana SPEC GRAVITY 1.010 Normal 1.005-<=1.025 [facility] Comment on above: Performed By: #### P OCGLUC #### [facility] [address] [address] [address] Con Santana UA PROTEIN Negative Normal NEGATIVE/ TRACE [facility] Comment on above: Performed By: #### P OCGLUC #### [facility] [address] [place] [address] Dr. Con Santana Urobilinogen Qn (U) 0.2 {Godfrey'U}/dL Normal 0.2 - 1. 0 [facility] Comment on above: Performed By: #### P OCGLUC #### [facility] [address] [address] [address] Con Santana WBC 2-5 Abnormal NONE SEEN [facility] Comment on above: Performed By: #### P OCGLUC #### [facility] [address] [place] [address] Dr. Con Santana XR CHEST 2 Von [...] ELEAZAR GUERRA Date: 2022-12-30 11:35 Normal [facility] BNPon 12-29-2022 Natriuretic peptide B (Bld) [Mass/Vol] 4120.0 pg/mL Critically high <=1,800.0 [facility] Comment on above: Performed By: #### E LISA JAVIER #### [facility] [address] [place] [address] Dr. Con Santana Natriuretic peptide B (Bld) [Mass/Vol] 3274.0 pg/mL Critically high <=1,800.0 [facility] Comment on above: Performed By: #### P OCGLUC #### [facility] [address] [place] [address] Dr. Con Santana CBC AUTO DIFFon 12-29-2022 BASO # 0.0 103/ul Normal 0.0-0.1 [facility] Comment on above: Performed By: #### C BC #### [facility] [address] [place] [address] Dr. Con Santana Basophils/100 WBC (Bld) 0.0 % Critically low 0.2-2.0 [facility] Comment on above: Performed By: #### C BC #### [facility] [address] [place] [address] Dr. Con Santana EO # 0.0 103/ul Normal 0.0-0.7 [facility] Comment on above: Performed By: #### C BC #### [facility] [address] [place] [address] Dr. Con Santana Eosinophils/100 WBC (Bld) 0.2 % Critically low 0.9-7.0 [facility] Comment on above: Performed By: #### C BC #### [facility] [address] [place] [address] Dr. Con Santana Erythrocyte distribution width (RBC) [Ratio] 13.6 % Normal 11.0-15.0 [facility] Comment on above: Performed By: #### C BC #### [facility] [address] [place] [address] Dr. Con Santana Hematocrit (Bld) [Volume fraction] 29.8 % Critically low 36.0-48.0 [facility] Comment on above: Performed By: #### C BC #### [facility] [address] [address] [address] Con Santana Hemoglobin (Bld) [Mass/Vol] 9.5 g/dL Critically low 12.0-16.0 [facility] Comment on above: Performed By: #### C BC #### [facility] [address] [address] [address] Con Santana IG # 0.05 10e3/ul Critically high 0.00-0.03 [facility] Comment on above: Performed By: #### C BC #### [facility] [address] [address] [address] Con Santana IG % 0.9 % Critically high 0.0-0.5 [facility] Comment on above: Performed By: #### C BC #### [facility] [address] [address] [address] Con Santana LYMPH # 0.7 103/ul Critically low 1.2-3.8 [facility] Comment on above: Performed By: #### C BC #### [facility] [address] [address] [address] Con Santana Lymphocytes/100 WBC (Bld) 13.0 % Critically low 20.5-60.0 [facility] Comment on above: Performed By: #### C BC #### [facility] [address] [place] [address] Dr. Con Santana MANUAL DIFF REQ NO Normal [facility] Comment on above: Performed By: #### C BC #### [facility] [address] [address] [address] Con Santana MCH (RBC) [Entitic mass] 30.5 pg Normal 26.7-34.0 [facility] Comment on above: Performed By: #### C BC #### [facility] [address] [place] [address] Dr. Con Santana MCHC (RBC) [Mass/Vol] 31.9 g/dL Normal 29.9-35.2 [facility] Comment on above: Performed By: #### C BC #### [facility] [address] [address] [address] Con Santana MCV (RBC) [Entitic vol] 95.8 fL Normal 81.0-99.0 [facility] Comment on above: Performed By: #### C BC #### [facility] [address] [address] [address] Con Santana MONO # 0.1 103/ul Critically low 0.3-0.8 [facility] Comment on above: Performed By: #### C BC #### [facility] [address] [address] [address] Con Santana Monocytes/100 WBC (Bld) 1.5 % Critically low 1.7-12.0 [facility] Comment on above: Performed By: #### C BC #### [facility] [address] [address] [address] Con Santana NEUT # 4.5 103/ul Normal 1.4-6.5 [facility] Comment on above: Performed By: #### C BC #### [facility] [address] [address] [address] Con Santana Neutrophils/100 WBC (Bld) 84.4 % Critically high 43.0-75.0 [facility] Comment on above: Performed By: #### C BC #### [facility] [address] [address] [address] Con Santana Platelet mean volume (Bld) [Entitic vol] 10.3 fL Normal 9.5-13.5 [facility] Comment on above: Performed By: #### C BC #### [facility] [address] [address] [address] Con Santana PLT 178 103/ul Normal 150-450 [facility] Comment on above: Performed By: #### C BC #### [facility] [address] [address] [address] Con Santana RBC 3.11 106/ul Critically low 4.20-5.40 [facility] Comment on above: Performed By: #### C BC #### [facility] [address] [address] [address] Con Santana WBC 5.3 103/ul Normal 4.0-11.0 [facility] Comment on above: Performed By: #### C BC #### [facility] [address] [address] [address] Con Santana BASO # 0.0 103/ul Normal 0.0-0.1 [facility] Comment on above: Performed By: #### C BC #### [facility] [address] [place] [address] Dr. Con Santana Basophils/100 WBC (Bld) 0.1 % Critically low 0.2-2.0 [facility] Comment on above: Performed By: #### C BC #### [facility] [address] [place] [address] Dr. Con Santana EO # 0.4 103/ul Normal 0.0-0.7 [facility] Comment on above: Performed By: #### C BC #### [facility] [address] [place] [address] Dr. Con Santana Eosinophils/100 WBC (Bld) 5.9 % Normal 0.9-7.0 [facility] Comment on above: Performed By: #### C BC #### [facility] [address] [place] [address] Dr. Con Santana Erythrocyte distribution width (RBC) [Ratio] 13.5 % Normal 11.0-15.0 [facility] Comment on above: Performed By: #### C BC #### [facility] [address] [place] [address] Dr. Con Santana Hematocrit (Bld) [Volume fraction] 29.4 % Critically low 36.0-48.0 [facility] Comment on above: Performed By: #### C BC #### [facility] [address] [place] [address] Dr. Con Santana Hemoglobin (Bld) [Mass/Vol] 9.5 g/dL Critically low 12.0-16.0 [facility] Comment on above: Performed By: #### C BC #### [facility] [address] [address] [address] Con Santana IG # 0.04 10e3/ul Critically high 0.00-0.03 [facility] Comment on above: Performed By: #### C BC #### [facility] [address] [place] [address] Dr. Con Santana IG % 0.6 % Critically high 0.0-0.5 [facility] Comment on above: Performed By: #### C BC #### [facility] [address] [place] [address] Dr. Con Santana LYMPH # 1.1 103/ul Critically low 1.2-3.8 [facility] Comment on above: Performed By: #### C BC #### [facility] [address] [place] [address] Dr. Con Santana Lymphocytes/100 WBC (Bld) 15.7 % Critically low 20.5-60.0 [facility] Comment on above: Performed By: #### C BC #### [facility] [address] [place] [address] Dr. Con Santana MANUAL DIFF REQ NO Normal [facility] Comment on above: Performed By: #### C BC #### [facility] [address] [place] [address] Dr. Con Santana MCH (RBC) [Entitic mass] 31.3 pg Normal 26.7-34.0 [facility] Comment on above: Performed By: #### C BC #### [facility] [address] [place] [address] Dr. Con Santana MCHC (RBC) [Mass/Vol] 32.3 g/dL Normal 29.9-35.2 [facility] Comment on above: Performed By: #### C BC #### [facility] [address] [place] [address] Dr. Con Santana MCV (RBC) [Entitic vol] 96.7 fL Normal 81.0-99.0 [facility] Comment on above: Performed By: #### C BC #### [facility] [address] [place] [address] Dr. Con Santana MONO # 0.4 103/ul Normal 0.3-0.8 [facility] Comment on above: Performed By: #### C BC #### [facility] [address] [place] [address] Dr. Con Santana Monocytes/100 WBC (Bld) 5.9 % Normal 1.7-12.0 [facility] Comment on above: Performed By: #### C BC #### [facility] [address] [place] [address] Dr. Con Santana NEUT # 5.0 103/ul Normal 1.4-6.5 [facility] Comment on above: Performed By: #### C BC #### [facility] [address] [place] [address] Dr. Con Santana Neutrophils/100 WBC (Bld) 71.8 % Normal 43.0-75.0 [facility] Comment on above: Performed By: #### C BC #### [facility] [address] [place] [address] Dr. Con Santana Platelet mean volume (Bld) [Entitic vol] 10.0 fL Normal 9.5-13.5 [facility] Comment on above: Performed By: #### C BC #### [facility] [address] [place] [address] Dr. Con Santana PLT 173 103/ul Normal 150-450 [facility] Comment on above: Performed By: #### C BC #### [facility] [address] [place] [address] Dr. Con Santana RBC 3.04 106/ul Critically low 4.20-5.40 [facility] Comment on above: Performed By: #### C BC #### [facility] [address] [place] [address] Dr. Con Santana WBC 7.0 103/ul Normal 4.0-11.0 [facility] Comment on above: Performed By: #### C BC #### [facility] [address] [place] [address] Dr. Con Santana ECHOCARDIO M/2D COMPLETEon 0 12-29-2022 ECHOCARDIO M/2D COMPLETE Patient: SALOME DOMINGUEZ Exam Date: 12/29/2022 : 1940 Gender:F Ordering : SIVA CROSS Admission #: [id number] Family : DR MATHIASLAS MANUEL . Order #: [id number] CLICK HERE TO VIEW EXAM ECHOCARDIOGRAM REPORT [...] Varma M.D. on 01/01/2023 at 09:24 Normal [facility] LACTATE/LACTIC ACIDon 2022 Lactate [Moles/Vol] 0.6 mmol/L Normal 0.4-2.0 [facility] Comment on above: Performed By: #### C BC #### [facility] [address] [place] [address] Dr. Con Santana PH VENOUS BLOODon 12-29-2022 PCO2 VENOUS 34.6 mmHg Critically low 40.0-52.0 [facility] Comment on above: Performed By: #### C BC #### [facility] [address] [address] [address] Con Santana pH VENOUS 7.343 Normal 7.330-7.430 [facility] Comment on above: Performed By: #### C BC #### [facility] [address] [place] [address] Dr. Con Santana POINT OF CARE GLUCOSEon Glucose [Mass/Vol] 217 mg/dL Critically high -106 [facility] Comment on above: Performed By: #### C BC #### [facility] [address] [address] [address] Con Santana Glucose [Mass/Vol] 199 mg/dL Critically high -106 [facility] Comment on above: Performed By: #### C BC #### [facility] [address] [address] [address] Con Santana Glucose [Mass/Vol] 202 mg/dL Critically high -106 [facility] Comment on above: Performed By: #### P OCGLUC #### [facility] [address] [address] [address] Con Santana PROF 14(COMP METB)on 023 Albumin [Mass/Vol] 2.6 g/dL Critically low 3.4-5.0 [facility] Comment on above: Performed By: #### P OCGLUC #### [facility] [address] [place] [address] Dr. Con Santana Albumin/Globulin [Mass ratio] 1.1 {ratio} Normal [facility] Comment on above: Performed By: #### P OCGLUC #### [facility] [address] [address] [address] Con Santana ALP [Catalytic activity/Vol] 67 U/L Normal 46-116 [facility] Comment on above: Performed By: #### P OCGLUC #### [facility] [address] [address] [address] Con Santana ALT [Catalytic activity/Vol] 69 U/L Critically high 14-59 [facility] Comment on above: Performed By: #### P OCGLUC #### [facility] [address] [address] [address] Con Santana Anion gap [Moles/Vol] 15.0 mmol/L Normal [facility] Comment on above: Performed By: #### P OCGLUC #### [facility] [address] [address] [address] Con Santana AST [Catalytic activity/Vol] 24 U/L Normal 15-37 [facility] Comment on above: Performed By: #### P OCGLUC #### [facility] [address] [address] [address] Con Santana Bilirubin [Mass/Vol] 0.3 mg/dL Normal 0.2-1.0 [facility] Comment on above: Performed By: #### P OCGLUC #### [facility] [address] [address] [address] Con Santana Calcium [Mass/Vol] 7.4 mg/dL Critically low 8.5-10.1 [facility] Comment on above: Performed By: #### P OCGLUC #### [facility] [address] [address] [address] Con Santana Chloride [Moles/Vol] 110 mmol/L Critically high 98-107 [facility] Comment on above: Performed By: #### P OCGLUC #### [facility] [address] [address] [address] Con Santana CO2 [Moles/Vol] 21.1 mmol/L Normal 21.0-32.0 [facility] Comment on above: Performed By: #### P OCGLUC #### [facility] [address] [address] [address] Con Santana Creatinine [Mass/Vol] 0.79 mg/dL Normal 0.55-1.02 [facility] Comment on above: Performed By: #### P OCGLUC #### [facility] [address] [address] [address] Con Santana EGFR-AF RUSSIAN >60 Normal >=60 [facility] Comment on above: Performed By: #### P OCGLUC #### [facility] [address] [address] [address] Con Santana EGFR-NON AF RUSSIAN >60 Normal >=60 [facility] Comment on above: Performed By: #### P OCGLUC #### [facility] [address] [address] [address] Con Santana Globulin (S) [Mass/Vol] 2.3 g/dL Normal [facility] Comment on above: Performed By: #### P OCGLUC #### [facility] [address] [address] [address] Con Santana Glucose [Mass/Vol] 115 mg/dL Critically high 74-106 [facility] Comment on above: Performed By: #### P OCGLUC #### [facility] [address] [address] [address] Con Santana Potassium [Moles/Vol] 4.1 mmol/L Normal 3.5-5.1 [facility] Comment on above: Performed By: #### P OCGLUC #### [facility] [address] [address] [address] Con Santana Protein [Mass/Vol] 4.9 g/dL Critically low 6.4-8.2 [facility] Comment on above: Performed By: #### P OCGLUC #### [facility] [address] [address] [address] Con Santana Sodium [Moles/Vol] 142 mmol/L Normal 136-145 [facility] Comment on above: Performed By: #### P OCGLUC #### [facility] [address] [place] [address] Dr. Con Santana Urea nitrogen [Mass/Vol] 19.0 mg/dL Critically high 7.0-18.0 [facility] Comment on above: Performed By: #### P OCGLUC #### [facility] [address] [place] [address] Dr. Con Santana Urea nitrogen/Creatinine [Mass ratio] 24.1 mg/mg Normal [facility] Comment on above: Performed By: #### P OCGLUC #### [facility] [address] [place] [address] Dr. Con Santana PROF CHEM 8 (BAS METB)on Anion gap [Moles/Vol] 13.5 mmol/L Normal [facility] Comment on above: Performed By: #### TIM INTERIANORO #### [facility] [address] [place] [address] Dr. Con Santana Calcium [Mass/Vol] 7.6 mg/dL Critically low 8.5-10.1 [facility] Comment on above: Performed By: #### TIM INTERIANORO #### [facility] [address] [place] [address] Dr. Con Santana Chloride [Moles/Vol] 110 mmol/L Critically high 98-107 [facility] Comment on above: Performed By: #### Anaya JAVIER UMICRO #### [facility] [address] [place] [address] Dr. Con Santana CO2 [Moles/Vol] 18.7 mmol/L Critically low 21.0-32.0 [facility] Comment on above: Performed By: #### TIM INTERIANORO #### [facility] [address] [place] [address] Dr. Con Santana Creatinine [Mass/Vol] 0.79 mg/dL Normal 0.55-1.02 [facility] Comment on above: Performed By: #### Anaya JAVIER UMICRO #### [facility] [address] [place] [address] Dr. Con Santana EGFR-AF RUSSIAN >60 Normal >=60 [facility] Comment on above: Performed By: #### LISA INTERIANO #### [facility] [address] [place] [address] Dr. Con Santana EGFR-NON AF RUSSIAN >60 Normal >=60 [facility] Comment on above: Performed By: #### LISA INTERIANO #### [facility] [address] [place] [address] Dr. Con Santana Glucose [Mass/Vol] 155 mg/dL Critically high 74-106 [facility] Comment on above: Performed By: #### LISA INTERIANO #### [facility] [address] [place] [address] Dr. Con Santana Potassium [Moles/Vol] 4.2 mmol/L Normal 3.5-5.1 [facility] Comment on above: Performed By: #### LISA INTERIANO #### [facility] [address] [place] [address] Dr. Con Santana Sodium [Moles/Vol] 138 mmol/L Normal 136-145 [facility] Comment on above: Performed By: #### LISA INTERIANO #### [facility] [address] [place] [address] Dr. Con Santana Urea nitrogen [Mass/Vol] 21.0 mg/dL Critically high 7.0-18.0 [facility] Comment on above: Performed By: #### LISA INTERIANO #### [facility] [address] [place] [address] Dr. Con Santana Urea nitrogen/Creatinine [Mass ratio] 26.6 mg/mg Normal [facility] Comment on above: Performed By: #### TIM INTERIANORO #### [facility] [address] [place] [address] Dr. Con Santana PROTIMEon 12-29-2022 INR Coag (PPP) [Relative time] 1.00 {INR} Normal [facility] Comment on above: Performed By: #### P OCGLUC #### [facility] [address] [place] [address] Dr. Con Santana INR GUIDELINES SEE BELOW Normal [facility] Comment on above: Result Comment: CANDELARIA RED INR: 2.0 - 3.0 CONDITIONS NOT LISTED BELOW 2.5 - 3.5 FOR PROSTHETIC HEART VALVE REPLACEMENT 2.5 - 3.5 RECURRENT THROMBOSIS Performed By: #### P OCGLUC #### [facility] [address] [place] [address] Dr. Con Santana PT Coag (PPP) [Time] 10.6 s Normal 9.0-11.6 [facility] Comment on above: Performed By: #### P OCGLUC #### [facility] [address] [place] [address] Dr. Con Santana PTTon 12-29-2022 aPTT Coag (Bld) [Time] 28.2 s Normal 22.3-36.2 [facility] Comment on above: Performed By: #### I NFLUAB #### [facility] [address] [place] [address] Dr. Con Santana TROPONIN, HIGH SENSITIVITYon 12-29-2022 HSTROP 16.0 pg/mL Normal 4.0-51.3 [facility] Comment on above: Result Comment: CUT- OFF POINTS HAVE BEEN ESTABLISHED BASED ON THE FOURTH UNIVERSAL DEFINITIONS OF MYOCARDIAL INFARCTION. THE UPPER REFERENCE LIMIT (URL) OF TROPONIN, DEFINED THE 99TH PERCENTILE OF cTnI DISTRIBUTION IN A REFERENCE POPULATION, HAS BEEN CONFIRMED THE DECISION THRESHOLD FOR [place] DIAGNOSIS. Performed By: #### H STROPN #### [facility] [address] [place] [address] Dr. Con Santana HSTROP 23.6 pg/mL Normal 4.0-51.3 [facility] Comment on above: Result Comment: CUT- OFF POINTS HAVE BEEN ESTABLISHED BASED ON THE FOURTH UNIVERSAL DEFINITIONS OF MYOCARDIAL INFARCTION. THE UPPER REFERENCE LIMIT (URL) OF TROPONIN, DEFINED THE 99TH PERCENTILE OF cTnI DISTRIBUTION IN A REFERENCE POPULATION, HAS BEEN CONFIRMED THE DECISION THRESHOLD FOR [place] DIAGNOSIS. Performed By: #### P OCGLUC #### [facility] [address] [place] [address] Dr. Con Santana XR CHEST 1 Von [...] TRINI CISNEROS Date: 2022-12-28 22:49 Normal [facility]on SARS-CoV-2 (COVID-19) RNA JEANE+probe Ql (Unsp spec) Not detected Normal NOT DETECTED [facility] Comment on above: Result Comment: When [...] for this test is supported by the Infrastructure Security Architect of Health and Human Service's declaration that [...] used). Performed By: #### C VDTBH #### [facility] [address] [place] [address] Dr. Con Santana PH VENOUS BLOODon 12-28-2022 PCO2 VENOUS 40.4 mmHg Normal 40.0-52.0 [facility] Comment on above: Performed By: #### I NFLUAB #### [facility] [address] [place] [address] Dr. Con Santana pH VENOUS 7.297 Critically low 7.330-7.430 [facility] Comment on above: Performed By: #### I NFLUAB #### [facility] [address] [place] [address] Dr. Con Santana CBC W MANUAL DIFFon 12-23-19 23 ATYPICAL LYMPH # Normal [facility] Comment on above: Performed By: #### C BC #### [facility] [address] [place] [address] Dr. Con Santana ATYPICAL LYMPH % Normal [facility] Comment on above: Performed By: #### C BC #### [facility] [address] [place] [address] Dr. Con Santana BAND # 0.0 103/ul Normal 0.0-0.3 [facility] Comment on above: Performed By: #### C BC #### [facility] [address] [place] [address] Dr. Con Santana BAND % 0 % Normal 0-5 [facility] Comment on above: Performed By: #### C BC #### [facility] [address] [place] [address] Dr. Con Santana BASOM # 0.00 103/ul Normal 0.00-0.10 [facility] Comment on above: Performed By: #### C BC #### [facility] [address] [place] [address] Dr. Con Santana BASOM % 0.0 % Critically low 0.2-2.0 [facility] Comment on above: Performed By: #### C BC #### [facility] [address] [place] [address] Dr. Con Santana BLAST # Normal [facility] Comment on above: Performed By: #### C BC #### [facility] [address] [place] [address] Dr. Con Santana BLAST % Normal [facility] Comment on above: Performed By: #### C BC #### [facility] [address] [place] [address] Dr. Con Santana CORRECTED WBC Normal 4.0-11.0 [facility] Comment on above: Performed By: #### C BC #### [facility] [address] [address] [address] Con Santana EOS # 0.00 103/ul Normal 0.00-0.70 [facility] Comment on above: Performed By: #### C BC #### [facility] [address] [address] [address] Con Santana EOS% 0.0 % Critically low 0.9-7.0 [facility] Comment on above: Performed By: #### C BC #### [facility] [address] [address] [address] Con Santana HCT 31.2 % Critically low 36.0-48.0 [facility] Comment on above: Performed By: #### C BC #### [facility] [address] [address] [address] Con Santana HGB 10.2 g/dl Critically low 12.0-16.0 [facility] Comment on above: Performed By: #### C BC #### [facility] [address] [address] [address] Con Santana LYMPHM # 0.32 103/ul Critically low 1.20-3.80 [facility] Comment on above: Performed By: #### C BC #### [facility] [address] [address] [address] Con Santana LYMPHM% 3.0 % Critically low 20.5-60.0 [facility] Comment on above: Performed By: #### C BC #### [facility] [address] [address] [address] Con Santana MCH 30.7 pg Normal 26.7-34.0 [facility] Comment on above: Performed By: #### C BC #### [facility] [address] [address] [address] Con Santana MCHC 32.7 g/dl Normal 29.9-35.2 [facility] Comment on above: Performed By: #### C BC #### [facility] [address] [place] [address] Dr. Con Santana MCV 94.0 fL Normal 81.0-99.0 [facility] Comment on above: Performed By: #### C BC #### [facility] [address] [place] [address] Dr. Con Santana METAMYELOCYTE # Normal [facility] Comment on above: Performed By: #### C BC #### [facility] [address] [place] [address] Dr. Con Santana METAMYELOCYTE % Normal [facility] Comment on above: Performed By: #### C BC #### [facility] [address] [place] [address] Dr. Con Santana MONOM# 0.11 103/ul Critically low 0.30-0.80 [facility] Comment on above: Performed By: #### C BC #### [facility] [address] [place] [address] Dr. Con Santana MONOM% 1.0 % Critically low 1.7-12.0 [facility] Comment on above: Performed By: #### C BC #### [facility] [address] [place] [address] Dr. Con Santana MPV 10.6 fL Normal 9.5-13.5 [facility] Comment on above: Performed By: #### C BC #### [facility] [address] [place] [address] Dr. Con Santana MYELOCYTE # Normal [facility] Comment on above: Performed By: #### C BC #### [facility] [address] [place] [address] Dr. Con Santana MYELOCYTE % Normal [facility] Comment on above: Performed By: #### C BC #### [facility] [address] [place] [address] Dr. Con Santana NRBC Normal [facility] Comment on above: Performed By: #### C BC #### [facility] [address] [place] [address] Dr. Con Santana PLT 242 103/ul Normal 150-450 [facility] Comment on above: Performed By: #### C BC #### [facility] [address] [address] [address] Con Santana RBC 3.32 106/ul Critically low 4.20-5.40 [facility] Comment on above: Performed By: #### C BC #### [facility] [address] [address] [address] Con Santana RDW 13.2 % Normal 11.0-15.0 [facility] Comment on above: Performed By: #### C BC #### [facility] [address] [address] [address] Con Santana SEG # 10.18 103/ul Critically high 1.40-6.50 [facility] Comment on above: Performed By: #### C BC #### [facility] [address] [address] [address] Con Santana SEG % 96.0 % Critically high 43.0-75.0 [facility] Comment on above: Performed By: #### C BC #### [facility] [address] [address] [address] Con Santana WBC 10.6 103/ul Normal 4.0-11.0 [facility] Comment on above: Performed By: #### C BC #### [facility] [address] [address] [address] Con Santana POINT OF CARE GLUCOSEon 11-27 Glucose [Mass/Vol] 139 mg/dL Critically high 74-106 [facility] Comment on above: Performed By: #### I NFLUAB #### [facility] [address] [address] [address] Con Santana Glucose [Mass/Vol] 151 mg/dL Critically high -106 [facility] Comment on above: Performed By: #### I NFLUAB #### [facility] [address] [address] [address] Con Santana Glucose [Mass/Vol] 200 mg/dL Critically high -106 [facility] Comment on above: Performed By: #### P OCGLUC #### [facility] [address] [address] [address] Con Santana PROF CHEM 8 (BAS METB)on Anion gap [Moles/Vol] 17.1 mmol/L Normal [facility] Comment on above: Performed By: #### P OCGLUC #### [facility] [address] [address] [address] Con Santana Calcium [Mass/Vol] 7.7 mg/dL Critically low 8.5-10.1 [facility] Comment on above: Performed By: #### P OCGLUC #### [facility] [address] [address] [address] Con Santana Chloride [Moles/Vol] 111 mmol/L Critically high 98-107 [facility] Comment on above: Performed By: #### P OCGLUC #### [facility] [address] [place] [address] Dr. Con Santana CO2 [Moles/Vol] 17.1 mmol/L Critically low 21.0-32.0 [facility] Comment on above: Performed By: #### P OCGLUC #### [facility] [address] [place] [address] Dr. Con Santana Creatinine [Mass/Vol] 1.46 mg/dL Critically high 0.55-1.02 [facility] Comment on above: Performed By: #### P OCGLUC #### [facility] [address] [place] [address] Dr. Con Santana EGFR-AF RUSSIAN 41 mL/min/1.73m2 Critically low >=60 [facility] Comment on above: Performed By: #### P OCGLUC #### [facility] [address] [place] [address] Dr. Con Santana EGFR-NON AF RUSSIAN 34 mL/min/1.73m2 Critically low >=60 [facility] Comment on above: Performed By: #### P OCGLUC #### [facility] [address] [place] [address] Dr. Con Santana Glucose [Mass/Vol] 167 mg/dL Critically high 74-106 [facility] Comment on above: Performed By: #### P OCGLUC #### [facility] [address] [address] [address] Con Santana Potassium [Moles/Vol] 3.2 mmol/L Critically low 3.5-5.1 [facility] Comment on above: Performed By: #### P OCGLUC #### [facility] [address] [address] [address] Con Santana Sodium [Moles/Vol] 142 mmol/L Normal 136-145 [facility] Comment on above: Performed By: #### P OCGLUC #### [facility] [address] [address] [address] Con Santana Urea nitrogen [Mass/Vol] 40.0 mg/dL Critically high 7.0-18.0 [facility] Comment on above: Performed By: #### P OCGLUC #### [facility] [address] [place] [address] Dr. Con Santana Urea nitrogen/Creatinine [Mass ratio] 27.4 mg/mg Normal [facility] Comment on above: Performed By: #### P OCGLUC #### [facility] [address] [place] [address] Dr. Con Santana XR CHEST 1 Von [...] BRINA HENRY Date: 2022-12-22 07:32 Normal [facility] POINT OF CARE GLUCOSEon 11-27 Glucose [Mass/Vol] 195 mg/dL Critically high 74-106 [facility] Comment on above: Performed By: #### P OCGLUC #### [facility] [address] [place] [address] Dr. Con Santana Glucose [Mass/Vol] 174 mg/dL Critically high 74-106 [facility] Comment on above: Performed By: #### C BC #### [facility] [address] [address] [address] Con Santana Glucose [Mass/Vol] 148 mg/dL Critically high 74-106 [facility] Comment on above: Performed By: #### C BC #### [facility] [address] [place] [address] Dr. Con Santana BNPon 12-20-2022 Natriuretic peptide B (Bld) [Mass/Vol] 1276.0 pg/mL Normal <=1,800.0 [facility] Comment on above: Performed By: #### H STROPN #### [facility] [address] [place] [address] Dr. Con Santana CARDIAC MAXIMILIANO ADMITon 023 CK [Catalytic activity/Vol] 101 U/L Normal 26-192 [facility] Comment on above: Performed By: #### H STROPN #### [facility] [address] [place] [address] Dr. Con Santana CK.MB [Mass/Vol] 1.61 ng/mL Normal <=3.60 [facility] Comment on above: Performed By: #### H STROPN #### [facility] [address] [place] [address] Dr. Con Santana HSTROP 19.8 pg/mL Normal 4.0-51.3 [facility] Comment on above: Result Comment: CUT- OFF POINTS HAVE BEEN ESTABLISHED BASED ON THE FOURTH UNIVERSAL DEFINITIONS OF MYOCARDIAL INFARCTION. THE UPPER REFERENCE LIMIT (URL) OF TROPONIN, DEFINED THE 99TH PERCENTILE OF cTnI DISTRIBUTION IN A REFERENCE POPULATION, HAS BEEN CONFIRMED THE DECISION THRESHOLD FOR [place] DIAGNOSIS. Performed By: #### H STROPN #### [facility] [address] [address] [address] Con Santana RAMONA 76 ng/mL Normal 9-82 [facility] Comment on above: Performed By: #### H STROPN #### [facility] [address] [address] [address] Con Santana CBC AUTO DIFFon 12-20-2022 BASO # 0.1 103/ul Normal 0.0-0.1 [facility] Comment on above: Performed By: #### P OCGLUC #### [facility] [address] [address] [address] Con Santana Basophils/100 WBC (Bld) 0.9 % Normal 0.2-2.0 [facility] Comment on above: Performed By: #### P OCGLUC #### [facility] [address] [place] [address] Dr. Con Santana EO # 0.8 103/ul Critically high 0.0-0.7 [facility] Comment on above: Performed By: #### P OCGLUC #### [facility] [address] [address] [address] Con Santana Eosinophils/100 WBC (Bld) 12.8 % Critically high 0.9-7.0 [facility] Comment on above: Performed By: #### P OCGLUC #### [facility] [address] [place] [address] Dr. Con Santana Erythrocyte distribution width (RBC) [Ratio] 13.0 % Normal 11.0-15.0 [facility] Comment on above: Performed By: #### P OCGLUC #### [facility] [address] [place] [address] Dr. Con Santana Hematocrit (Bld) [Volume fraction] 40.9 % Normal 36.0-48.0 [facility] Comment on above: Performed By: #### P OCGLUC #### [facility] [address] [place] [address] Dr. Con Santana Hemoglobin (Bld) [Mass/Vol] 13.3 g/dL Normal 12.0-16.0 [facility] Comment on above: Performed By: #### P OCGLUC #### [facility] [address] [address] [address] Con Santana IG # 0.01 10e3/ul Normal 0.00-0.03 [facility] Comment on above: Performed By: #### P OCGLUC #### [facility] [address] [address] [address] Con Santana IG % 0.2 % Normal 0.0-0.5 [facility] Comment on above: Performed By: #### P OCGLUC #### [facility] [address] [address] [address] Con Santana LYMPH # 3.3 103/ul Normal 1.2-3.8 [facility] Comment on above: Performed By: #### P OCGLUC #### [facility] [address] [place] [address] Dr. Con Santana Lymphocytes/100 WBC (Bld) 51.5 % Normal 20.5-60.0 [facility] Comment on above: Performed By: #### P OCGLUC #### [facility] [address] [address] [address] Con Santana MANUAL DIFF REQ NO Normal [facility] Comment on above: Performed By: #### P OCGLUC #### [facility] [address] [place] [address] Dr. Con Santana MCH (RBC) [Entitic mass] 31.3 pg Normal 26.7-34.0 [facility] Comment on above: Performed By: #### P OCGLUC #### [facility] [address] [address] [address] Con Santana MCHC (RBC) [Mass/Vol] 32.5 g/dL Normal 29.9-35.2 [facility] Comment on above: Performed By: #### P OCGLUC #### [facility] [address] [place] [address] Dr. Con Santana MCV (RBC) [Entitic vol] 96.2 fL Normal 81.0-99.0 [facility] Comment on above: Performed By: #### P OCGLUC #### [facility] [address] [address] [address] Con Santana MONO # 0.5 103/ul Normal 0.3-0.8 [facility] Comment on above: Performed By: #### P OCGLUC #### [facility] [address] [address] [address] Con Santana Monocytes/100 WBC (Bld) 7.0 % Normal 1.7-12.0 [facility] Comment on above: Performed By: #### P OCGLUC #### [facility] [address] [place] [address] Dr. Con Santana NEUT # 1.8 103/ul Normal 1.4-6.5 [facility] Comment on above: Performed By: #### P OCGLUC #### [facility] [address] [place] [address] Dr. Con Santana Neutrophils/100 WBC (Bld) 27.6 % Critically low 43.0-75.0 [facility] Comment on above: Performed By: #### P OCGLUC #### [facility] [address] [place] [address] Dr. Con Santana Platelet mean volume (Bld) [Entitic vol] 9.9 fL Normal 9.5-13.5 [facility] Comment on above: Performed By: #### P OCGLUC #### [facility] [address] [place] [address] Dr. Con Santana PLT 286 103/ul Normal 150-450 [facility] Comment on above: Performed By: #### P OCGLUC #### [facility] [address] [place] [address] Dr. Con Santana RBC 4.25 106/ul Normal 4.20-5.40 [facility] Comment on above: Performed By: #### P OCGLUC #### [facility] [address] [place] [address] Dr. Con Santana WBC 6.5 103/ul Normal 4.0-11.0 [facility] Comment on above: Performed By: #### P OCGLUC #### [facility] [address] [place] [address] Dr. Con Santana CULTURE BLOODon 12-20-2022 Microscopic examination of blood, culture Culture Observations: NO GROWTH AT 5 DAYS. Normal [facility] Comment on above: Performed By: #### B LDCX2 #### [facility] [address] [place] [address] Dr. Con Santana Microscopic examination of blood, culture Culture Observations: NO GROWTH AT 5 DAYS. Normal [facility] Comment on above: Performed By: #### C BC #### [facility] [address] [address] [address] Con Santana CULTURE URINEon 12-20-2022 CULTURE URINE Culture Observations : LIGHT GROWTH OF MIXED GENITAL KAL[place]. NO POTENTIAL PATHOGENS SEEN. Normal [facility] Comment on above: Performed By: #### C BC #### [facility] [address] [place] [address] Dr. Con Santana Covid-19 PCR (CVDTB)on 11-27 SARS-CoV-2 (COVID-19) RNA JEANE+probe Ql (Unsp spec) Not detected Normal NOT DETECTED [facility] Comment on above: Result Comment: When [...] for this test is supported by the [place] of [employer] and Human Service's declaration that [...] used). Performed By: #### C BC #### [facility] [address] [place] [address] Dr. Con Santana ER URINE PROFILEon 03-25-202 3 Bilirubin Ql (U) Negative Normal NEGATIVE [facility] Comment on above: Performed By: #### Anaya JAVIER UMICRO #### [facility] [address] [place] [address] Dr. Con Santana Clarity (U) CLEAR Normal CLEAR [facility] Comment on above: Performed By: #### E YAYA, UMICRO #### [facility] [address] [place] [address] Dr. Con Santana Color (U) LT. YELLOW Normal YELLOW [facility] Comment on above: Performed By: #### E YAYA UMICRO #### [facility] [address] [place] [address] Dr. Con KNIGHT A micrscopic examination will be performed if indicated. Normal [facility] Comment on above: Performed By: #### E YAYA UMICRO #### [facility] [address] [place] [address] Dr. Con Snatana Glucose Ql (U) Negative Normal NEGATIVE [facility] Comment on above: Performed By: #### Anaya JAVIER UMICRO #### [facility] [address] [place] [address] Dr. Con Santana Hemoglobin Ql (U) TRACE-INTACT Abnormal NEGATIVE [facility] Comment on above: Performed By: #### Anaya JAVIER UMICRO #### [facility] [address] [place] [address] Dr. Con Santana Ketones Ql (U) TRACE Abnormal NEGATIVE [facility] Comment on above: Performed By: #### Anaya JAVIER UMICRO #### [facility] [address] [place] [address] Dr. Con Santana LEUKOCYTES MODERATE Abnormal NEGATIVE [facility] Comment on above: Performed By: #### Anaya JAVIER UMICRO #### [facility] [address] [place] [address] Dr. Con Santana Nitrite Ql (U) Positive Abnormal NEGATIVE [facility] Comment on above: Performed By: #### Anaya JAVIER UMICRO #### [facility] [address] [place] [address] Dr. Con Santana pH (U) 7.0 [pH] Normal 5-9 [facility] Comment on above: Performed By: #### LISA INTERIANO #### [facility] [address] [place] [address] Dr. Con Santana SPEC GRAVITY 1.010 Normal 1.005-<=1.025 [facility] Comment on above: Performed By: #### LISA INTERIANO #### [facility] [address] [place] [address] Dr. Con Santana UA PROTEIN TRACE Normal NEGATIVE/ TRACE [facility] Comment on above: Performed By: #### LISA INTERIANO #### [facility] [address] [place] [address] Dr. Con Santana UR MICRO IND INDICATED Normal [facility] Comment on above: Performed By: #### LISA INTERIANO #### [facility] [address] [place] [address] Dr. Con Santana Urobilinogen Qn (U) 0.2 {Godfrey'U}/dL Normal 0.2 - 1. 0 [facility] Comment on above: Performed By: #### LISA INTERIANO #### [facility] [address] [place] [address] Dr. Con Santana INFLUENZA A AND B AGon 12-20 INFLUENZA A AG Negative Normal NEGATIVE SEE COMMENT [facility] Comment on above: Performed By: #### I NFLUAB #### [facility] [address] [place] [address] Dr. Con Santana INFLUENZA B AG Negative Normal NEGATIVE SEE COMMENT [facility] Comment on above: Performed By: #### I NFLUAB #### [facility] [address] [place] [address] Dr. Con Santana LACTATE/LACTIC ACIDon 2022 Lactate [Moles/Vol] 0.6 mmol/L Normal 0.4-2.0 [facility] Comment on above: Performed By: #### P OCGLUC #### [facility] [address] [address] [address] Con Santana POINT OF CARE GLUCOSEon 11-27 Glucose [Mass/Vol] 217 mg/dL Critically high -106 [facility] Comment on above: Performed By: #### I NFLUAB #### [facility] [address] [address] [address] Con Santana Glucose [Mass/Vol] 204 mg/dL Critically high 74-106 [facility] Comment on above: Performed By: #### P OCGLUC #### [facility] [address] [address] [address] Con Santana Glucose [Mass/Vol] 148 mg/dL Critically high -106 [facility] Comment on above: Performed By: #### C BC #### [facility] [address] [place] [address] Dr. Con Santana PROF 14(COMP METB)on 023 Albumin [Mass/Vol] 3.4 g/dL Normal 3.4-5.0 [facility] Comment on above: Performed By: #### H STROPN #### [facility] [address] [address] [address] Con Santana Albumin/Globulin [Mass ratio] 1.1 {ratio} [facility] Comment on above: Performed By: #### H STROPN #### [facility] [address] [place] [address] Dr. Con Santana ALP [Catalytic activity/Vol] 95 U/L Normal 46-116 [facility] Comment on above: Performed By: #### H STROPN #### [facility] [address] [place] [address] Dr. Con Santana ALT [Catalytic activity/Vol] 22 U/L Normal 14-59 [facility] Comment on above: Performed By: #### H STROPN #### [facility] [address] [place] [address] Dr. Con Santana Anion gap [Moles/Vol] 13.1 mmol/L Normal [facility] Comment on above: Performed By: #### H STROPN #### [facility] [address] [address] [address] Con Santana AST [Catalytic activity/Vol] U/L Critically low 15-37 [facility] Comment on above: Performed By: #### H STROPN #### [facility] [address] [address] [address] Con Santana Bilirubin [Mass/Vol] 0.4 mg/dL Normal 0.2-1.0 [facility] Comment on above: Performed By: #### H STROPN #### [facility] [address] [address] [address] Con Santana Calcium [Mass/Vol] 8.5 mg/dL Normal 8.5-10.1 [facility] Comment on above: Performed By: #### H STROPN #### [facility] [address] [address] [address] Con Santana Chloride [Moles/Vol] 107 mmol/L Normal 98-107 [facility] Comment on above: Performed By: #### H STROPN #### [facility] [address] [address] [address] Con Santana CO2 [Moles/Vol] 22.5 mmol/L Normal 21.0-32.0 [facility] Comment on above: Performed By: #### H STROPN #### [facility] [address] [address] [address] Con Santana Creatinine [Mass/Vol] 0.85 mg/dL Normal 0.55-1.02 [facility] Comment on above: Performed By: #### H STROPN #### [facility] [address] [address] [address] Con Santana EGFR-AF RUSSIAN >60 Normal >=60 [facility] Comment on above: Performed By: #### H STROPN #### [facility] [address] [address] [address] Con Santana EGFR-NON AF RUSSIAN >60 Normal >=60 [facility] Comment on above: Performed By: #### H STROPN #### [facility] [address] [address] [address] Con Santana Globulin (S) [Mass/Vol] 3.2 g/dL Normal [facility] Comment on above: Performed By: #### H STROPN #### [facility] [address] [address] [address] Con Santana Glucose [Mass/Vol] 131 mg/dL Critically high 74-106 [facility] Comment on above: Performed By: #### H STROPN #### [facility] [address] [address] [address] Con Santana Potassium [Moles/Vol] 3.6 mmol/L Normal 3.5-5.1 [facility] Comment on above: Performed By: #### H STROPN #### [facility] [address] [place] [address] Dr. Con Santana Protein [Mass/Vol] 6.6 g/dL Normal 6.4-8.2 [facility] Comment on above: Performed By: #### H STROPN #### [facility] [address] [place] [address] Dr. Con Santana Sodium [Moles/Vol] 139 mmol/L Normal 136-145 [facility] Comment on above: Performed By: #### H STROPN #### [facility] [address] [place] [address] Dr. Con Santana Urea nitrogen [Mass/Vol] 15.0 mg/dL Normal 7.0-18.0 [facility] Comment on above: Performed By: #### H STROPN #### [facility] [address] [place] [address] Dr. Con Santana Urea nitrogen/Creatinine [Mass ratio] 17.6 mg/mg Normal [facility] Comment on above: Performed By: #### H STROPN #### [facility] [address] [place] [address] Dr. Con Santana PROTIMEon 12-20-2022 INR Coag (PPP) [Relative time] 1.08 {INR} Normal [facility] Comment on above: Performed By: #### H STROPN #### [facility] [address] [place] [address] Dr. Con Santana INR GUIDELINES SEE BELOW Normal [facility] Comment on above: Result Comment: CANDELARIA RED INR: 2.0 - 3.0 CONDITIONS NOT LISTED BELOW 2.5 - 3.5 FOR PROSTHETIC HEART VALVE REPLACEMENT 2.5 - 3.5 RECURRENT THROMBOSIS Performed By: #### H STROPN #### [facility] [address] [place] [address] Dr. Con Santana PT Coag (PPP) [Time] 11.4 s Normal 9.0-11.6 [facility] Comment on above: Performed By: #### H STROPN #### [facility] [address] [place] [address] Dr. Con Santana PTTon 12-20-2022 aPTT Coag (Bld) [Time] 30.8 s Normal 22.3-36.2 [facility] Comment on above: Performed By: #### H STROPN #### [facility] [address] [place] [address] Dr. Con Santana URINE MICROSCOPIC ONLYon BACTERIA MODERATE Abnormal NONE SEEN [facility] Comment on above: Performed By: #### Anaya JAVIER UMICRO #### [facility] [address] [place] [address] Dr. Con Santana Bacteria identified Cx Nom (U) INDICATED Normal [facility] Comment on above: Performed By: #### Anaya JAVIER, UMICRO #### [facility] [address] [place] [address] Dr. Con Santana CAST NONE SEEN Normal NONE SEEN [facility] Comment on above: Performed By: #### Anaya JAVIER, UMICRO #### [facility] [address] [place] [address] Dr. Con Santana Crystals LM Nom (Urine sed) NONE SEEN Normal NONE SEEN [facility] Comment on above: Performed By: #### E RUR, UMICRO #### [facility] [address] [place] [address] Dr. Con Santana Epithelial cells LM Ql (Urine sed) FEW Abnormal NONE SEEN /RARE [facility] Comment on above: Performed By: #### E RUR, UMICRO #### [facility] [address] [address] [address] Con Santana MUCOUS NONE SEEN Normal NONE SEEN [facility] Comment on above: Performed By: #### E RUR, UMICRO #### [facility] [address] [address] [address] Con Santana RBC 2-5 Abnormal 0-2 [facility] Comment on above: Performed By: #### E RUR, UMICRO #### [facility] [address] [address] [address] Con Santana WBC 20-50 Abnormal NONE SEEN [facility] Comment on above: Performed By: #### E TABR, UMICRO #### [facility] [address] [address] [address] Con Santana XR CHEST 1 Von [...] ELEAZAR GUERRA Date: 2022-12-20 05:55 Normal [facility] XR DEXA BONE DENSITYon 07-10 XR DEXA BONE DENSITY DEXA Bone Density Study CLINICAL: Evaluate bone mineral density. Postmenopausal COMPARISON: None FINDINGS: The bone density study was assessed by dual-energy x-ray absorptiometry with the Traansmission scanner. The test results are expressed in [...] MATI ATKINS Date: 2022-07-10 16:49 Normal [facility] BNPon 02-14-2022 Natriuretic peptide B (Bld) [Mass/Vol] 1479.0 pg/mL Normal <=1,800.0 [facility] Comment on above: Performed By: #### E TABLISA Gr #### [facility] [address] [address] [address] Con Santana CBC AUTO DIFFon 02-14-2022 BASO # 0.1 103/ul Normal 0.0-0.1 [facility] Comment on above: Performed By: #### C BC #### [facility] [address] [place] [address] Dr. Con Santana Basophils/100 WBC (Bld) 0.9 % Normal 0.2-2.0 [facility] Comment on above: Performed By: #### C BC #### [facility] [address] [place] [address] Dr. Con Santana EO # 1.0 103/ul Critically high 0.0-0.7 [facility] Comment on above: Performed By: #### C BC #### [facility] [address] [place] [address] Dr. Con Santana Eosinophils/100 WBC (Bld) 16.2 % Critically high 0.9-7.0 [facility] Comment on above: Performed By: #### C BC #### [facility] [address] [place] [address] Dr. Con Santana Erythrocyte distribution width (RBC) [Ratio] 12.7 % Normal 11.0-15.0 [facility] Comment on above: Performed By: #### C BC #### [facility] [address] [place] [address] Dr. Con Santana Hematocrit (Bld) [Volume fraction] 39.6 % Normal 36.0-48.0 [facility] Comment on above: Performed By: #### C BC #### [facility] [address] [place] [address] Dr. Con Santana Hemoglobin (Bld) [Mass/Vol] 12.9 g/dL Normal 12.0-16.0 [facility] Comment on above: Performed By: #### C BC #### [facility] [address] [place] [address] Dr. Con Santana IG # 0.02 10e3/ul Normal 0.00-0.03 [facility] Comment on above: Performed By: #### C BC #### [facility] [address] [place] [address] Dr. Con Santana IG % 0.3 % Normal 0.0-0.5 [facility] Comment on above: Performed By: #### C BC #### [facility] [address] [place] [address] Dr. Con Santana LYMPH # 2.6 103/ul Normal 1.2-3.8 [facility] Comment on above: Performed By: #### C BC #### [facility] [address] [place] [address] Dr. Con Santana Lymphocytes/100 WBC (Bld) 40.2 % Normal 20.5-60.0 [facility] Comment on above: Performed By: #### C BC #### [facility] [address] [place] [address] Dr. Con Santana MANUAL DIFF REQ NO Normal [facility] Comment on above: Performed By: #### C BC #### [facility] [address] [place] [address] Dr. Con Santana MCH (RBC) [Entitic mass] 31.5 pg Normal 26.7-34.0 [facility] Comment on above: Performed By: #### C BC #### [facility] [address] [place] [address] Dr. Con Santana MCHC (RBC) [Mass/Vol] 32.6 g/dL Normal 29.9-35.2 [facility] Comment on above: Performed By: #### C BC #### [facility] [address] [place] [address] Dr. Con Santana MCV (RBC) [Entitic vol] 96.6 fL Normal 81.0-99.0 [facility] Comment on above: Performed By: #### C BC #### [facility] [address] [place] [address] Dr. Con Santana MONO # 0.5 103/ul Normal 0.3-0.8 [facility] Comment on above: Performed By: #### C BC #### [facility] [address] [address] [address] Con Santana Monocytes/100 WBC (Bld) 8.4 % Normal 1.7-12.0 [facility] Comment on above: Performed By: #### C BC #### [facility] [address] [address] [address] Con Santana NEUT # 2.2 103/ul Normal 1.4-6.5 [facility] Comment on above: Performed By: #### C BC #### [facility] [address] [address] [address] Con Santana Neutrophils/100 WBC (Bld) 34.0 % Critically low 43.0-75.0 [facility] Comment on above: Performed By: #### C BC #### [facility] [address] [place] [address] Dr. Con Santana Platelet mean volume (Bld) [Entitic vol] 9.8 fL Normal 9.5-13.5 [facility] Comment on above: Performed By: #### C BC #### [facility] [address] [place] [address] Dr. Con Santana PLT 270 103/ul Normal 150-450 [facility] Comment on above: Performed By: #### C BC #### [facility] [address] [place] [address] Dr. Con Santana RBC 4.10 106/ul Critically low 4.20-5.40 [facility] Comment on above: Performed By: #### C BC #### [facility] [address] [place] [address] Dr. Con Santana WBC 6.3 103/ul Normal 4.0-11.0 [facility] Comment on above: Performed By: #### C BC #### [facility] [address] [place] [address] Dr. Con Santana Covid-19 PCR ([facility])on 01-27 SARS-CoV-2 (COVID-19) RNA JEANE+probe Ql (Unsp spec) Not detected Normal NOT DETECTED [facility] Comment on above: Result Comment: When [...] for this test is supported by the Infrastructure Security Architect of Health and Human Service's declaration that [...] used). Performed By: #### C BC #### [facility] [address] [place] [address] Dr. Con Santana INFLUENZA A AND B AGon 02-14 [facility] SEE BELOW Normal [facility] Comment on above: Result Comment: Nega tive for Flu A protein angiten. Infection due to Flu A cannot be ruled out. Flu A angiten in the sample may be below the detection limit of the test. Performed By: #### C BC #### [facility] [address] [place] [address] Dr. Con Santana INFLUBNEG SEE BELOW Normal [facility] Comment on above: Result Comment: Nega tive for Flu B protein antigen. Infection due to Flu B cannot be ruled out. Flu B antigen in the sample may be below the detection limit of the test. Performed By: #### C BC #### [facility] [address] [place] [address] Dr. Con Santana INFLUENZA A AG Negative Normal NEGATIVE SEE COMMENT [facility] Comment on above: Performed By: #### C BC #### [facility] [address] [place] [address] Dr. Con Santana INFLUENZA B AG Negative Normal NEGATIVE SEE COMMENT [facility] Comment on above: Performed By: #### C BC #### [facility] [address] [address] [address] Con Santana INTERNAL CONTROLS Within Normal Limits Normal Wi thin Normal Limits [facility] Comment on above: Performed By: #### C BC #### [facility] [address] [address] [address] Con Santana PROF 14(COMP METB)on 022 Albumin [Mass/Vol] 3.1 g/dL Critically low 3.4-5.0 [facility] Comment on above: Performed By: #### H STROPN #### [facility] [address] [address] [address] Con Santana Albumin/Globulin [Mass ratio] 1.0 {ratio} Normal [facility] Comment on above: Performed By: #### H STROPN #### [facility] [address] [place] [address] Dr. Con Santana ALP [Catalytic activity/Vol] 88 U/L Normal 46-116 [facility] Comment on above: Performed By: #### H STROPN #### [facility] [address] [address] [address] Con Santana ALT [Catalytic activity/Vol] 26 U/L Normal 14-59 [facility] Comment on above: Performed By: #### H STROPN #### [facility] [address] [place] [address] Dr. Con Santana Anion gap [Moles/Vol] 11.2 mmol/L Normal [facility] Comment on above: Performed By: #### H STROPN #### [facility] [address] [address] [address] Con Santana AST [Catalytic activity/Vol] 24 U/L Normal 15-37 [facility] Comment on above: Performed By: #### H STROPN #### [facility] [address] [address] [address] Con Santana Bilirubin [Mass/Vol] 0.6 mg/dL Normal 0.2-1.0 [facility] Comment on above: Performed By: #### H STROPN #### [facility] [address] [address] [address] Con Santana Calcium [Mass/Vol] 8.4 mg/dL Critically low 8.5-10.1 [facility] Comment on above: Performed By: #### H STROPN #### [facility] [address] [address] [address] Con Santana Chloride [Moles/Vol] 106 mmol/L Normal 98-107 [facility] Comment on above: Performed By: #### H STROPN #### [facility] [address] [address] [address] Con Santana CO2 [Moles/Vol] 27.0 mmol/L Normal 21.0-32.0 [facility] Comment on above: Performed By: #### H STROPN #### [facility] [address] [place] [address] Dr. Con Santana Creatinine [Mass/Vol] 0.71 mg/dL Normal 0.55-1.02 [facility] Comment on above: Performed By: #### H STROPN #### [facility] [address] [place] [address] Dr. Con Santana EGFR-AF RUSSIAN >60 Normal >=60 [facility] Comment on above: Performed By: #### H STROPN #### [facility] [address] [place] [address] Dr. Con Santana EGFR-NON AF RUSSIAN >60 Normal >=60 [facility] Comment on above: Performed By: #### H STROPN #### [facility] [address] [place] [address] Dr. Con Santana Globulin (S) [Mass/Vol] 3.1 g/dL Normal [facility] Comment on above: Performed By: #### H STROPN #### [facility] [address] [address] [address] Con Santana Glucose [Mass/Vol] 104 mg/dL Normal 74-106 [facility] Comment on above: Performed By: #### H STROPN #### [facility] [address] [place] [address] Dr. Con Santana Potassium [Moles/Vol] 3.2 mmol/L Critically low 3.5-5.1 [facility] Comment on above: Performed By: #### H STROPN #### [facility] [address] [address] [address] Con Santana Protein [Mass/Vol] 6.2 g/dL Critically low 6.4-8.2 [facility] Comment on above: Performed By: #### H STROPN #### [facility] [address] [address] [address] Con Santana Sodium [Moles/Vol] 141 mmol/L Normal 136-145 [facility] Comment on above: Performed By: #### H STROPN #### [facility] [address] [place] [address] Dr. Con Santana Urea nitrogen [Mass/Vol] 13.0 mg/dL Normal 7.0-18.0 [facility] Comment on above: Performed By: #### H STROPN #### [facility] [address] [place] [address] Dr. Con Santana Urea nitrogen/Creatinine [Mass ratio] 18.3 mg/mg Normal [facility] Comment on above: Performed By: #### H STROPN #### [facility] [address] [place] [address] Dr. Con Santana TROPONIN, HIGH SENSITIVITYon 02-14-2022 HSTROP 20.9 pg/mL Normal 4.0-51.3 [facility] Comment on above: Result Comment: CUT- OFF POINTS HAVE BEEN ESTABLISHED BASED ON THE FOURTH UNIVERSAL DEFINITIONS OF MYOCARDIAL INFARCTION. THE UPPER REFERENCE LIMIT (URL) OF TROPONIN, DEFINED THE 99TH PERCENTILE OF cTnI DISTRIBUTION IN A REFERENCE POPULATION, HAS BEEN CONFIRMED THE DECISION THRESHOLD FOR [place] DIAGNOSIS. Performed By: #### E LISA JAVIER #### [facility] [address] [place] [address] Dr. Con Santana XR CHEST 1 Von [...] by: KAROL VARELA Date: 2022-02-14 09:36 Normal [facility] XR chest 2V*on 01-15-2019 XR chest 2V* [facility] [place] [address] [place] [address] XRay Report Signed Patient: Salome Dominguez MR#: [id number] : 1940 Acct:[id number] Age/Sex: 78 / F ADM Date: 01/15/19 Loc: XDUCLY Room: Type: [facility] Attending Dr: Jack JAMES Ordering Provider: Jack [...] Maximiliano Campos M.D.01/15/2019 11:38 AM Dictation Location: [facility] Transcribed By: [facility] 01/15/19 1138 Dictated By: Maximiliano Campos II, MD 01/15/19 1137 Signed By: 01/15/19 1138 [facility] XR SHOULDER RIGHT TRAUMA SER IESon 08-21-2017 XR SHOULDER RIGHT TRAUMA SERIES 08/21/2017 5:37 PMXR SHOULDER RIGHT TRAUMA SERIESINDICATION: Fall.COMPARISON: None availableFINDINGS: 2 views the right shoulder. Comminuted fracture of the humerus involving the greater tuberosity and surgical neck. Humeral head remains articulate with the glenoid.IMPRESSION: Proximal humerus fracture.Workstation ID:[id number]; right arm injury. Best images possible. Normal [facility] Vital Signs Date Time Vital Sign Value Performing Clinician Facility 10-12-2023 11:00-0500 Body height 158.75 cm Effie Jackman [facility] 10-12-2023 11:00-0500 Body mass index (BMI) [Ratio] 18.18 kg/m2 Effie Jackman [facility] 10-12-2023 11:00-0500 Body weight 45.81 kg Effie Jackman [facility] Other 10-12-2023 11:00-0500 Diastolic blood pressure 64 mm[Hg] Effie Jackman [facility] Other 10-12-2023 11:00-0500 SaO2% (BldA) [Mass fraction] 97 % Effie Jackman [facility] Other 10-12-2023 11:00-0500 Systolic blood pressure 118 mm[Hg] Effie Jackman Other [facility] Other Encounters Encounter Date Encounter Type Care Provider Facility Start: 05-19-2024 ambulatory [facility] Start: 04-11-2024 End: 04-11-[address] [facility] Start: 04-05-2024 Evaluation and management of inpatient [facility] Start: 04-04-2024 Evaluation and management of inpatient [facility] Start: 04-04-2024 Evaluation and management of inpatient CAMILLE CONCEPCION [facility] Start: 04-01-2024 Emergency department patient visit FELICIA MEDINA [facility] Start: 04-01-2024 End: 04-05-2024 Evaluation and management of inpatient MIREYA TOLENTINO [facility] Start: 04-01-2024 End: 04-01-2024 ambulatory PADMINI BILLINGS [facility] Start: 03-30-2024 End: 03-30-2024 ambulatory MICHAELA RICHARDSON Not Available Start: 03-22-2024 End: 03-22-2024 ambulatory JUANA MCDANIELS Not Available Start: 03-16-2024 End: 03-17-2024 ambulatory MICHAELA RICHARDSON Not Available Start: 12-31-2023 End: 12-31-2023 ambulatory MICHAELA H RICHARDSON Not Available Start: 11-18-2023 End: 11-18-2023 ambulatory MICHAELA RICHARDSON Not Available Start: 10-27-2023 End: 10-27-2023 ambulatory Effie Jackman [facility] Start: 10-27-2023 Telephone encounter Effie Jackman [facility] Start: 10-16-2023 End: 10-16-2023 ambulatory Effie Jackman [facility] Start: 10-16-2023 Telephone encounter Effie Jackman [facility] Start: 10-15-2023 End: 10-15-2023 ambulatory Effie Jackman [facility] Start: 10-15-2023 Telephone encounter Effie Jackman [facility] Start: 10-12-2023 Office outpatient visit 25 minutes Effie Jackman [facility] Start: 10-12-2023 Telephone encounter Effie Jackman [facility] Start: 10-12-2023 End: 10-12-2023 ambulatory NICHOLAS Joshua [email or web address] Other Start: 10-01-2023 End: 10-01-2023 ambulatory MICHAELA H RICHARDSON Not Available Start: 08-05-2023 End: 08-05-2023 ambulatory Effie Jackman [facility] Start: 08-05-2023 Telephone encounter Effie Jackman [facility] Start: 05-14-2023 End: 05-14-2023 ambulatory Effie Jackman [facility] Start: 05-14-2023 Telephone encounter Effie Jackman [facility] Start: 03-30-2023 End: 03-30-2023 ambulatory Effie Jackman [facility] Start: 03-30-2023 Telephone encounter Effie Jackman [facility] Start: 03-27-2023 End: 03-27-2023 ambulatory Effie Jackman [facility] Start: 03-27-2023 Telephone encounter Effie Jackman [facility] Start: 12-29-2022 End: 01-01-2023 Evaluation and management of inpatient DR JANI MORENO Facility:[facility] Start: 12-22-2022 End: 12-22-2022 Evaluation and management of inpatient DR JANI MORENO Facility:[facility] Start: 07-10-2022 End: 07-11-[address] JANI MORENO Facility:[facility] Start: 02-14-2022 End: 02-14-[address] JANI MORENO Facility:[facility] Start: 01-15-2019 End: 01-15-2019 Patient encounter procedure Jack Sanches Facility:[facility] Start: 11-20-2017 End: 11-21-2017 Ambulatory DEFAULT PHYSICIAN Facility:[facility] Start: 08-21-2017 End: 08-21-2017 Emergency department patient visit JACK PINA [facility] Start: 05-07-2017 End: 05-08-2017 Ambulatory DANIELLE COFFMAN Facility:[facility] Immunizations Immunization Date Immunization Notes Care Provider Roberta webb 07-03-2023 influenza, high dose seasonal, preservative-free Effie Augustina Other [facility] Other Payers Date Payer Category Payer Unknown [id number] 2017 Self-pay 2014 Unknown [id number] 2003 Medicare [id number] 1959 Unknown [id number] 1940 Unknown [id number] 2.16.84 [id number] 1940 Unknown [id number] 2.16.84 [id number] 1938 Unknown [id number] 2.16.84 [id number] 1938 Unknown [id number] 2.16.84 [id number] 1938 Unknown [id number] 2.16.84 [id number] 1938 Unknown [id number] 2.16.84 [id number] 1938 Unknown [id number] 2.16.84 [id number] 1938 Unknown [id number] 2.16.84 [id number] 1938 Unknown [id number] 2.16.84 [id number] 1938 Unknown [id number] 2.16.84 [id number] 1940 Unknown [id number] 2.16.840 .[id number] Medicare [id number] Unknown Unknown [id number] 2.16.84 [id number] Social History Date Type Detail Facility Unknown if ever smoked [facility] Other Sex Assigned At Sex Assigned At Bir th [facility] Other Clinical Notes 03-27-2023 to 04-11-2024 Note [...] practitioner on 04/29/2020 Padmini Billings MD, [facility] 04-05-2024 Note Adult Nutrition Asse ssment: [...] subcutaneous, Daily levothyroxine, 75 mcg, oral, Daily dncdks-vsbugznm-ztfredd, 1 capsule, oral, TID with meals metoprolol [...] Special Kitchen Request Once Comments: Zay 2 guamanian toast, butter and syrup.turkey sausage, grits with brown sugar and butter, raspberry botswanan,orange juice and coffee, cream and sugar 04/03/24 0826 04/02/24 1302 Special Kitchen Request Once Comments: Zay send hot roast beef sandwich, mashed potatoes and gravy, Chicken noodle soup, Ramos pie,diet cola, cottage cheese 04/02/24 1303 Meal Intakes: no meals recorded Nutrition Risk: High Nutrition Needs: Needs based on: actual body weight Calorie needs: 5608-0102 kcals/day based on Equation: 25-30 kcal/kg MSJ x 1,0=3404 flori Protein needs: 41-49 g/day based on [...] Hand Grasp: Weak L Hand Grasp: Weak (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 For weekends & holidays, the dietitian can be reached via pager [phone] from [phone]-3P. Unable to respond to [employer] messages on Thursday & s. [facility] 04-05-2024 Note Hospital Medicine Discharge [...] placement. Patient underwent implementation of dual-chamber pacemaker, [employer] on 04/04 and did fairly well. [...] 9:40 AM Padmini Billings MD [facility] 04/29/2024 1:40 PM Sammie Miles NP [facility] Your medication list START taking these medications Instructions Last Dose Given Next Dose Due doxycycline 100 mg capsule Commonly known as: Vibramycin Take 1 capsule (100 mg) by mouth in the morning and at bedtime for 27 doses. Take with at least 8 ounces (large glass) of water, do not lie down for 30 minutes after HYDROcodone-acetaminophen 5-325 mg tablet Commonly known as: [place] Take 1 tablet by mouth every 6 [...] Creon 3,000-9,500- 15,000 unit capsule Generic drug: foaopg-xpnpacsb-vfnjdti levothyroxine 75 mcg tablet Commonly known as: Synthroid, Levoxyl Vitamin B-12 1,000 mcg tablet Generic drug: cyanocobalamin Where to Get Your Medications These medications were sent to [facility]/pharmacy #[id number] [place], [place] - [address] [address] doxycycline 100 mg capsule metoprolol succinate XL 25 mg 24 hr tablet You can get these medications from any pharmacy Bring a paper prescription for each of these medications HYDROcodone-acetaminophen 5-325 mg tablet Salome is allergic to psyllium. Disposition: Home-Health Care [facility] (06) Discharge Condition: Stable [...] [facility] 04/05/2024 12:16 PM [facility] 04-05-2024 Note Occupational Therapy Occupational [...] at home . Implantation of dual chamber PPM([employer]): submuscular implant 04/04/24 General Subjective: friendly [...] function) General Assessment General Assessment Hearing: (mild [place]) Hand Dominance: Right Home Living Home Living Type of Home: Senior apartment [address]) Lives With: Spouse Home Adaptive Equipment: Walker rolling, Cane (sc, gb, hhs) Home Layout: One level Home Access: Level entry Bathroom Shower/Tub: Walk-in shower Prior Level of Function Prior Function Level of [place] Works: Independent with ADLs and functional transfers, Independent [...] Sensation Light [employer]c (more content not included)... [facility] 04-05-2024 Note [facility] CARDIOLOGY INPAT [...] subcutaneous, Daily levothyroxine, 75 mcg, oral, Daily tbigxv-inoogofl-kpwchcg, 1 capsule, oral, TID with meals olopatadine, [...] hyperinflation. Normal cardiomediastinal (more content not included)... [facility] 04-04-2024 Note DUAL CHAMBER PACEMAK ER IMPLANT PROCEDURE NOTE DATE OF PROCEDURE: 04/04/2024 PERFORMING PHYSICIAN: Dr. Issa Richards EMBROIDERY WORKER: MIKE CONSENT: Patient LOCATION: [facility] PROCEDURE PERFORMED: 1. Implantation of dual chamber PPM([employer]): submuscular implant. 2. U/S venous access [...] presented to ER per recommendation of her mammalogist because of bradycardia. Patient's daughter reports that [...] occasions using seldinger technique using a 5 Latvian micropunture needle and exchanged for 0.034 wire. I decided to proceed with opening of the pocket. Localinfiltration of 1% Lidocaine was performed and an incision was created in the left upper chest. Dissection was then performed using cautery down. An active fixation [employer] pacing lead was then delivered via SPCC1 His sheath through the 9F sheath to the right ventricle. After confirmation of lead position on orthogonal views (CHIRINOS and SALVADOREAN) to confirm position in the septal aspect, [...] three 0- Silk sutures. An active fixation [employer] RA pacing lead was then delivered through the 6Fsheath to the right atrial appendage. After confirmation of lead position on orthogonal views (CHIRINOS and SALVADOREAN) to confirm position in the appendage, the screw was activated. After confirmation of good sensing parameters, injury pattern and pacing thresholds, 10V pacing was done and no diaphragmatic stimulation was noted. It was then secured in the pocket using three 1-0 Silk sutures. At this stage, given the good thresholds, the backup His lead was removed. The leads were then attached to a [employer] PPM device and the leads tug [...] x 2 weeks Issa Richards Cardiac Electrophysiology [facility] 04-04-2024 Note Patient: Salome Stewart Procedure Information Date/Time: 04/04/24 9237 Procedure: Implant PPM Location: [facility] 1 / [facility] (Cath) Providers: Issa Richards MD Clinical information reviewed: Tobacco Allergies Problems Med Hx Surg Hx OB Status Fam Hx Physical Exam Airway Mallampati: II TM distance: >3 FB Neck ROM: full Cardiovascular Dental Pulmonary Abdominal Anesthesia Plan ASA 2 CSE Anesthetic plan and risks discussed with patient. Use of blood products discussed with patient who. Additional Equipment Requests [facility] 04-04-2024 Note H&P reviewed. The [...] have agreed to proceed with the procedure. [facility] 04-04-2024 Note Hospital Medicine Daily Progress Note - 04/04/2024 9:43 AM; Room: [facility]313- Admission: 04/01/2024 5:28 PM; Length of stay: 3 days THE HOSPITALIST TEAM PREFERS TO USE [employer] CHAT FOR COMMUNICATION 7AM-7PM. IF I DO NOT RESPOND WITHIN 15 MINUTES, PLEASE PAGE ME/CALL THROUGH THE TRACTOR TRAILER DRIVER. FROM 7PM-7AM, PLEASE PAGE [phone](COVR) Code Status: Full Code Barriers to Discharge: [...] dyspnea, orthopnea, pre-syncope, syncope). EKG taken at [facility] on 02/10 showed first degree AV block [...] 11:30 PM 04/04/2024 8:00 AM Site Assessment Red;Motley Motley VTE Prophylaxis: Lovenox Scheduled Meds ceFAZolin (Ancef) 1,000 mg, gentamicin (Garamycin) 80 mg in sodium chloride irrigation solution 0.9 % 500 mL IRRIGATION, , irrigation, Once ceFAZolin, 2 g, intravenous, Once enoxaparin, 40 mg, subcutaneous, Daily levothyroxine, 75 mcg, oral, Daily gkhvzs-rpovjolq-voyfrni, 1 capsule, oral, TID with meals olopatadine, [...] mg/dL 19 CREATI (more content not included)... [facility] 04-04-2024 Note -- Attestation signed [...] Richards MD, 30 mL at 04/04/24 1328 dpggds-jutpqlob-rdvhxgh (Creon) 3,000-9,500- 15,000 unit per capsule 1 [...] MD PGY3 Internal Medicine [facility] 04-03-2024 Note Hospital Medicine Daily Progress Note - 04/03/2024 12:05 PM; Room: [address] [place] [address] Admission: 04/01/2024 5:28 PM; Length of stay: 2 days THE HOSPITALIST TEAM PREFERS TO USE [employer] CHAT FOR COMMUNICATION 7AM-7PM. IF I DO NOT RESPOND WITHIN 15 MINUTES, PLEASE PAGE ME/CALL THROUGH THE TRACTOR TRAILER DRIVER. FROM 7PM-7AM, PLEASE PAGE [phone](COVR) Code Status: Full Code Barriers to Discharge: [...] 11:30 PM 04/03/2024 8:00 AM Site Assessment Red;Motley Red;Motley VTE Prophylaxis: Lovenox Scheduled Meds enoxaparin, 40 mg, subcutaneous, Daily levothyroxine, 75 mcg, oral, Daily jrktcz-ptzzelnk-ugivqps, 1 capsule, oral, TID with meals pantoprazole, [...] FREET4 0.77 04/01/2024 No results found for: [id number] , IRON , TIBC , C3 , [...] Tolentino MD Hospital Medicine 04/03/2024 12:05 PM [facility] 04-03-2024 Note -- Attestation signed [...] QT Interval 532 QTC CALCULATION(BAZETT) 411 P Pony 82 R-Pony -60 T Wave Pony 71 Impression Sinus rhythm with complete heart [...] Cardiology will follow along Orlando Valdez MD Software Systems Analyst PGY-4 [facility] 04-02-2024 Note Hospital Medicine Daily Progress Note - 04/02/2024 11:29 AM; Room: 3133/3133-01 Admission: 04/01/2024 5:28 PM; Length of stay: 1 days THE HOSPITALIST TEAM PREFERS TO USE [employer] CHAT FOR COMMUNICATION 7AM-7PM. IF I DO NOT RESPOND WITHIN 15 MINUTES, PLEASE PAGE ME/CALL THROUGH THE TRACTOR TRAILER DRIVER. FROM 7PM-7AM, PLEASE PAGE [phone](COVR) Code Status: Full Code Barriers to Discharge: [...] 11:30 PM 04/02/2024 9:00 AM Site Assessment Red;Motley Red;Motley VTE Prophylaxis: Lovenox Scheduled Meds [START ON [...] FREET4 0.77 04/01/2024 No results found for: [id number] , IRON , TIBC , C3 , [...] Tolentino MD Hospital Medicine 04/02/2024 11:29 AM [facility] 04-01-2024 Note Hospital Medicine History and Physical 04/01/2024 11:08 PM THE HOSPITALIST TEAM PREFERS TO USE [employer] FOR COMMUNICATION 7AM-7PM. IF I DO NOT RESPOND WITHIN 15 MINUTES, PLEASE PAGE ME/CALL THROUGH THE TRACTOR TRAILER DRIVER. FROM 7PM-7AM, PLEASE PAGE [phone](COVR) Chief Complaint Chief Complaint Patient presents with Bradycardia Pt sent by [facility]ology for bradycardia. Pt c/o occasional SOB but denies being symptomatic otherwise. History of Present Illness Salome Dominguez is an 83 y.o. female who came from home with past medical history of hypothyroidism, anemia, COPD, aortic valve stenosis, asthma and dementia presented to ER per recommendation of her mammalogist that the patient saw today because of [...] Date Noted Bradycardia 04/01/2024 Complete heart block ([facility]/HCC) 04/01/2024 Murmur, heart 04/01/2024 SERRANO (dyspnea on exertion) 04/01/2024 Third degree heart block ([facility]/HCC) 04/01/2024 Dementia ([facility]) 03/15/2024 Hypothyroidism 03/15/2024 Long-term use of high-risk medication 03/15/2024 Lesion of skin of scalp 07/01/2023 Sensorineural hearing loss, bilateral 07/01/2023 Acute combined systolic and diastolic heart failure (CMS/HCC) 06/30/2023 Chronic fatigue, unspecified 06/30/2023 Diabetes mellitus ([facility]/HCC) 06/30/2023 Essential (primary) hypertension 06/30/2023 Age related osteoporosis 06/08/2023 Anxiety disorder, unspecified 06/08/2023 Asymptomatic varicose veins 06/08/2023 Ataxic gait 06/08/2023 Biliary cirrhosis ([facility]/HCC) 06/08/2023 Bladder atonia 06/08/2023 Cardiomegaly 06/08/2023 [...] Moderate episode of recurrent major depressive disorder ([facility]/HCC) 06/08/2023 Moderate persistent asthma without complication 06/08/2023 Myositis 06/08/2023 Nonrheumatic aortic valve stenosis 06/08/2023 Osteoarthritis of lumbar spine 06/08/2023 Other congenital valgus deformity of feet 06/08/2023 Other seborrheic keratosis 06/08/2023 Paroxysmal atrial fibrillation (CMS/HCC) 06/08/2023 Pure hypercholesterolemia 06/08/2023 Restless legs syndrome 06/08/2023 Transient cerebral ischemia 06/08/2023 Chronic obstructive pulmonary disease with (acute) exacerbation ([facility]) 03/12/2023 Osteoarthrosis, hand 10/15/2009 Bacterial overgrowth syndrome 05/17/2009 Abdominal pain, lef (more content not included)... [facility] 04-01-2024 Note 04/01/242033 Financial Resource [...] have you lived? 1 (Lives at [facility] [place] [facility] w/ ) In the last 12 months, was there a time when you did not have a steady place to sleep or slept in a longterm (including now)? N Transportation Needs In the [...] than 3 How often do you attend yarsani or taoism services? Never Do you belong to any clubs or organizations such as yarsani groups, unions, fraternal or athletic groups, or [...] has the electric, gas, oil, or water Imperator threatened to shut off services in your home? No 04/01/242034 Referral Data Referral Source key worker Referral Reason Psychosocial assessment Patient Information Primary Caregiver Private caregiver Accompanied by/Relationship Daughter Alexia, elke Brown Activities of Daily Living Assistive Device Walker (uses sometimes) Living Arrangement (Current/Prior to Hospitalization) Private residence ([facility] independent living w/ ) Ambulation Minimum assistance (uses walker sometimes) Dressing Independent Feeding Independent Behavior Oriented (A&Ox4) Communication Can write;Talks;Understands speaking;Understands Afghan;Reads Income Information Income Source Unemployed (Retired) Discharge Planning Support Systems Spouse/significant other;Children ( Kevin; six daughters (Alexia, Kait, Donita, Jasmin, Doris, Savana); son Karol) Type of Residence Private residence;Home care staff Will patient need Precert for Post Acute needs? No Patient's goal for discharge Return to [facility] with continued CERTIFIED FORKLIFT OPERATOR Does the patient need discharge transport arranged? No Completed social work assessment and SDoH screening. Patient was A&Ox4 at this time. Patient's , Kevin, and daughter, Alexia, were currently present at bedside. Patient reported that she lives at [facility] with her . Patient identified her support system as her (Kevin), her six daughters (Alexia, Kait, Donita, Jasmin, Doris, and Savana), and her son (Karol). Patient endorsed that she is moderately socially active. Patient reported that she needs assistance with bathing, which is provided by one of her daughters or by her CERTIFIED FORKLIFT OPERATOR who visits 2x/week. Patient reported that [...] any alcohol consumption or recreational drug use. [facility] 04-01-2024 Note [facility] Note Reason for cardiology [...] mood, affect, and judgement. Labs: 12/23/2023 at [facility] TSH 9.379., White blood count 4.6, [...] block, left a (more content not included)... [facility] 10-16-2023 Evaluation note Encounter Date Diagnosis Assessment Notes Sep, Hypokalemia (ICD-10 - E87.6) [facility] Other 01-18-2024 Evaluation note* Encounter Date Diagnosis Assessment Notes Treatment Notes Treatment Clinical Notes Sep, Other symptoms and signs involving appearance and behavior (ICD-10 - R46.89) [facility] Other 01-15-2024 Evaluation note* Encounter Date Diagnosis [...] Pt reinforced to take med as prescribed. [facility] Other 11-08-2023 Evaluation note* Encounter Date Diagnosis Assessment Notes Treatment Notes Treatment Clinical Notes Jul, Restless leg syndrome (ICD-10 - G25.81) [facility] Other 08-17-2023 Evaluation note* Encounter Date Diagnosis Assessment Notes Treatment Notes Treatment Clinical Notes Apr, Chronic diarrhea (ICD-10 - K52.9) [facility] Other 06-30-2023 Evaluation note* Encounter Date Diagnosis Assessment Notes Treatment Notes Treatment Clinical Notes Feb, Moderate persistent asthma without complication (ICD-10 - J45.40) [facility] Other Evaluation noteNo InformationNort Bilneur Other History general Narrative - Reported* Type Description Date Medical History Atrial fibrillation Medical History asthma Medical History arthritia Medical History insomnia Surgical History cholecystectomy Surgical History hysterectomy Surgical History appendectomy Surgical History bowel surgery Surgical History surgery on L fourth toe 08/2016 Hospitalization History pneumonia [facility] Other History general Narrative - Reported* Type Description Date Medical History Atrial fibrillation Medical History asthma Medical History arthritia Medical History insomnia Medical History Bladder stimulator Surgical History cholecystectomy Surgical History hysterectomy Surgical History appendectomy Surgical History bowel surgery Surgical History surgery on L fourth toe 08/2016 Hospitalization History pneumonia [facility] Other Summary Purpose Family History No Family [...] Directives Records Found Reason for Referral Reason [facility] - Do cuments scanned from family. CT brain pending. Behavioral and safety concerns. Notes from family scanned into chart Diagnosis 1 Other symptoms and s igns involving cognitive functions and awareness (R41.89) Referral Organization [facility] Medical sophie Referring Provider First Name Effie Referring Provider Last Name Augutsina Referring Provider Specialty Family [facility] Referred Organization [facility] Referred Address [address] [place] [facility] [place],[address] Referred Provider Specialty Neurology Referral Priority Routine Additional Source Comments INFORMATION SOURCE (unrecogn ized section and content) DATE CREATED AUTHOR 03/19/2018 [facility] DATE CREATED AUTHOR AUTHOR'S ORGANIZ ATION 03/24/2018 [facility] DATE CREATED AUTHOR AUTHOR'S ORGANIZ ATION 04/22/2018 [facility] DATE CREATED AUTHOR AUTHOR'S ORGANIZ ATION 01/16/2019 [facility] DATE CREATED AUTHOR AUTHOR'S ORGANIZ ATION 01/03/[address] [facility] DATE CREATED AUTHOR AUTHOR'S ORGANIZ ATION 04/01/2024 [facility] DATE CREATED AUTHOR AUTHOR'S ORGANIZ ATION 04/12/2024 [facility] DATE CREATED AUTHOR AUTHOR'S ORGANIZ ATION [...] BE BASED ON THE PRIMARY CLINICAL RECORDS. [employer] [facility]. provides no warranty or guarantee of the accuracy or completeness of information in this document.
--- NOTE | 2024-08-03 17:58 | XR_ITS ---
[facility] [place] [id number] Patient Name: CECELIA VILLALPANDO MRN: [id number] date: 1940 Sex: F Assigned Patient Location: ER Current Patient Location: ER Accession/Order Number: [id number] Exam Date: 08/03/2024 18:20 Report Date: 08/03/2024 21:23 At the request of: ALEXX ALVAREZ Procedure: XR chest 2V XR chest 2V 08/03/2024 6:20 PM EST CLINICAL INDICATION: Shortness of breath COMPARISON: 07/22/2024 TECHNIQUE: PA and lateral views of the chest. FINDINGS: Left subclavian approach AICD. The cardiomediastinal silhouette and pulmonary vasculature are within normal limits. No focal parenchymal opacities. No pneumothorax or pleural effusion. No displaced rib fractures. Osseous structures demonstrate degenerative changes. Soft tissues are grossly normal. XR/XR chest 2V IMPRESSION: No acute cardiopulmonary abnormality. Electronically authenticated by: TRINI CISNEROS Date: 08/03/2024 21:23
--- NOTE | 2024-08-03 17:58 | ECG_ITS ---
[facility] Test Date: 2024-08-03 Pat Name: CECELIA VILLALPANDO Department: Room: - Gender: Female Php Website Developer: : 1940 Requested By: BRIAN PAYTON Order Number: [id number] Reading MD: EMILIA JACKSON Measurements Intervals Pegram Rate: 109 P: 90 FL: 118 QRS: 110 QRSD: 134 T: 2 QT: 382 QTc: 446 Interpretive Statements 1120 Sinus tachycardia 2210 Short FL interval LEFT BUNDLE BRANCH BLOCK 0102 ARTIFACT PRESENT 9150 abnormal ECG Electronically Signed On 08-04-2024 6:17:32 EST by EMILIA JACKSON
--- NOTE | 2024-08-03 18:02 | ED_ITS ---
Documented by User: Winnie Daly DO 08/03/24 18:05 HPI HPI - General Adult General Chief complaint: Shortness of Breath/Dyspnea Stated complaint: Shortness of breath Time Seen by Provider: 08/03/24 17:47 Source: patient Mode of arrival: walk-in Limitations: no limitations History of Present Illness HPI narrative: Patient presents ED complaint of shortness of breath. She said this started today and she has been winded, worse with exertion. She does have a history of COPD and she said this happens on and off. She is not on oxygen and is not currently hypoxic. Her heart rate is bouncing around from about 100-115 when I was in the room. She states she does not have any history of A-fib or cardiac problems. Patient denies any fever, no chest pain or abdominal pain. She denies any leg swelling. She does report a mild cough but mostly just concerned about her increased work of breathing. She is alert and oriented in no acute distress, patient is hard of hearing Related Data Home Medications ?Medication ?Instructions ?Recorded ?Confirmed albuterol sulfate 90 mcg/actuation 2 puff inhalation DAILY 02/11/24 07/22/24 aerosol inhaler levothyroxine 75 mcg tablet 75 mcg PO DAILY 02/11/24 07/22/24 metoprolol succinate 25 mg 12.5 mg PO DAILY 05/11/24 07/22/24 tablet,extended release 24 hr cyanocobalamin (vitamin B-12) 1,000 mcg PO .qd 06/27/24 07/22/24 1,000 mcg tablet mgslrb-[id number] 1 cap PO TID 06/27/24 07/22/24 3,000-9,500-15,000 unit capsule, delayed rel (Creon) Previous Rx's ?Medication ?Instructions ?Recorded albuterol sulfate 2.5 mg/3 mL 2.5 mg (3 mL) inhalation Q6H PRN 05/26/24 (0.083 %) solution for nebulization shortness of breath or wheezing #180 mL nebulizers (Aeroneb Go Nebulizer) #1 ea 05/26/24 Allergies Allergy/AdvReac Type Severity Reaction Status Date / Time psyllium (From Metamucil) Allergy Severe Hives Verified 07/22/24 20:46 Opioid HPI Opioid Management Most Recent Opioid Data: Last Pain Scale 2 05/23/24 09:15 05/23/24 Last Pain Intensity 2 05/23/24 09:15 05/23/24 Last ORT Total Score 0 06/27/24 02:11 06/27/24 Last ORT Risk Category Low Risk 06/27/24 02:11 06/27/24 Review of Systems ROS Status of ROS 10 or more systems reviewed and unremark able except as noted in history and below [facility] Medical History (Updated 08/03/24 @ 21:36 by Greg Keith MD) Severe protein-calorie malnutrition ?E43 - Unspecified severe protein-calorie malnutrition (ICD-10) Acute hyponatremia ?E87.1 - Hypo-osmolality and hyponatremia (ICD-10) Chronic diastolic (congestive) heart failure ?I50.32 - Chronic diastolic (congestive) heart failure (ICD-10) Primary hypertension ?I10 - Essential (primary) hypertension (ICD-10) Hypothyroidism (acquired) ?E03.9 - Hypothyroidism, unspecified (ICD-10) Abnormal CT scan, gastrointestinal tract ?R93.3 - Abnormal findings on diagnostic imaging of other parts of digestive tract (ICD-10) Ileus ?K56.7 - Ileus, unspecified (ICD-10) Abnormal CT of the abdomen ?R93.5 - Abnormal findings on diagnostic imaging of other abdominal regions, including retroperitoneum (ICD-10) Adult failure to thrive ?R62.7 - Adult failure to thrive (ICD-10) COPD (chronic obstructive pulmonary disease) ?J44.9 - Chronic obstructive pulmonary disease, unspecified (ICD-10) Shortness of breath ?R06.02 - Shortness of breath (ICD-10) Pacemaker ?Z95.0 - Presence of cardiac pacemaker (ICD-10) Asthma ?J45.909 - Unspecified asthma, uncomplicated (ICD-10) Surgical History History of cholecystectomy ?Z90.49 - Acquired absence of other specified parts of digestive tract (ICD- 10) History of hysterectomy ?Z90.710 - Acquired absence of both cervix and uterus (ICD-10) History of appendectomy ?Z90.49 - Acquired absence of other specified parts of digestive tract (ICD- 10) Family History Brother Family history of COPD (chronic obstructive pulmonary disease) Social History Within the past year, how often did you have a drink containing alcohol: monthly or less Within the past year, how many standard drinks containing alcohol did you have on a typical day: 1 or 2 Within the past year, how often did you have six or more drinks on one occasion: never Total score: 0 Score interpretation: A score less than 3 is consistent with normal alcohol consumption. Smoking status: Never smoker Non-prescribed substance use: denies use Previous occupational history: retired Highest level of school completed/degree received: Associate degree: occupational, technical, vocational program Are you now , , , , never or living with a partner: Little interest or pleasure in doing things: not at all Feeling down, depressed, or hopeless: not at all Feel stressed/tense/nervous/anxious/difficulty sleeping: not at all Do you think of yourself as: straight/heterosexual Gender Identity: female Exam Narrative Exam Narrative: Time Seen: [] Vital Signs: [Per nurse's notes.] General: [Alert] Skin: [Warm, dry, no rash.] Head: [Normocephalic, atraumatic.] Neck: [Supple, trachea midline.] Eye: [Pupils are equal, round and reactive to light, extraocular movements are intact, normal conjunctiva.] Ears, nose, mouth and throat: oral mucosa moist. Cardiovascular: [Tachycardia, no murmur.] Respiratory: Diminished breath sounds bilaterally, mild tachypnea Chest wall: [No tenderness, no deformity.] Gastrointestinal: [Soft, nontender, non distended, normal bowel sounds.] MSK: 5 out of 5 muscle strength x 4 extremities no calf pain or edema Lymphatics: [No lymphadenopathy.] Psychiatric: [Cooperative, appropriate mood & affect.] Neurological: [Alert and oriented to person, place, time, and situation, no focal neurological deficit observed.] Constitutional Vital Signs, click to edit/add: Last Vital Signs Pulse 98 H 08/03/24 19:14 Resp 20 08/03/24 19:14 BP 123/70 08/03/24 17:52 Pulse Ox 98 08/03/24 19:14 O2 Del Method Room Air 08/03/24 19:14 Course Vital Signs Vital signs: Vital Signs Pulse Rate 100 H 08/03/24 17:52 Respiratory Rate 20 08/03/24 17:52 Blood Pressure 123/70 08/03/24 17:52 Pulse Oximetry 98 08/03/24 17:52 Oxygen Delivery Method Room Air 08/03/24 17:52 Pulse Rate 98 H 08/03/24 19:14 Respiratory Rate 20 08/03/24 19:14 Blood Pressure 123/70 08/03/24 17:52 Pulse Oximetry 98 08/03/24 19:14 Oxygen Delivery Method Room Air 08/03/24 19:14 Medical Decision Making Lab Data Labs: Lab Results 08/03/24 Range/Units 18:08 WBC 5.1 (4.0-11.0) 10^3/uL RBC 3.86 L (4.20-5.40) 10^6/uL Hgb 11.4 L (12.0-16.0) g/dL Hct 36.5 (36.0-48.0) % MCV 94.6 (81.0-99.0) fL MCH 29.5 (26.7-34.0) pg MCHC 31.2 (29.9-35.2) g/dL RDW 15.5 H (11.0-15.0) % Plt Count 329 (150-450) 10^3/uL MPV 9.3 L (9.5-13.5) fL Neut % (Auto) 43.8 (43.0-75.0) % Lymph % (Auto) 35.4 (20.5-60.0) % [place] % (Auto) 11.1 (1.7-12.0) % Eos % (Auto) 8.9 H (0.9-7.0) % Baso % (Auto) 0.6 (0.2-2.0) % Neut # (Auto) 2.2 (1.4-6.5) 10^3/uL Lymph # (Auto) 1.8 (1.2-3.8) 10^3/uL [place] # (Auto) 0.6 (0.3-0.8) 10^3/uL Eos # (Auto) 0.5 (0.0-0.7) 10^3/uL Baso # (Auto) 0.0 (0.0-0.1) 10^3/uL Abs Immat Gran (auto) 0.01 (0.00-0.03) 10^3/uL Imm/Tot Granulo (auto) 0.2 (0.0-0.5) % PT 11.4 (9.0-11.6) sec INR 1.08 Sodium 140 (136-145) mmol/L Potassium 5.1 (3.5-5.1) mmol/L Chloride 106 (98-107) mmol/L Carbon Dioxide 27.3 (21.0-32.0) mmol/L Anion Gap 11.8 BUN 15.0 (7.0-18.0) mg/dL Creatinine 0.86 (0.55-1.02) mg/dL Est GFR ( Amer) >60 (>=60 mL/min/1.73m^2) Est GFR (Non-Af Amer) >60 (>=60 mL/min/1.73m^2) BUN/Creatinine Ratio 17.4 Glucose 89 (74-106) mg/dL Calcium 8.7 (8.5-10.1) mg/dL Total Bilirubin 0.3 (0.2-1.0) mg/dL AST 20 (15-37) U/L ALT 22 (14-59) U/L Alkaline Phosphatase 96 (46-116) U/L Troponin I High Sens 14.2 (4.0-51.3) pg/mL NT-Pro-B Natriuret Pep 2949.0 H* (<=1800.0) pg/mL Total Protein 6.1 L (6.4-8.2) g/dL Albumin 3.1 L (3.4-5.0) g/dL Globulin 3.0 g/dL Albumin/Globulin Ratio 1.0 ECG Data Attestation: I personally reviewed and interpreted this ECG as follows: Interpretation: EKG INTERPRETATION Time: [] 1802 Rate: [] 109 Rhythm: _ [] Sinus tachycardia ST segments: _ [] No acute ST elevation or depression T waves: _ [] Ectopy: _ [] P wave/AK interval: _ [] QRS interval: _ [] QT interval: _ [] Comparison: _ [] Comparison EKG date: [] Performed by: [self] Discharge Plan Discharge Chief Complaint: Shortness of Breath/Dyspnea Clinical Impression: COPD exacerbation Patient Disposition: Home, Self-Care Time of Disposition Decision: 21:36 Condition: Good Prescriptions / Home Meds: No Action levothyroxine 75 mcg tablet 75 mcg PO DAILY albuterol sulfate 90 mcg/actuation HFA aerosol inhaler 2 puff INHALATION DAILY metoprolol succinate 25 mg tablet extended release 24 hr 12.5 mg PO DAILY (DME) nebulizers [Aeroneb Go Nebulizer] Misc See Rx Instructions .Route Qty: 1 0RF Rx Instructions: As directed please use for breathing treatment as directed albuterol sulfate 2.5 mg /3 mL (0.083 %) solution for nebulization 2.5 mg inhalation Q6H PRN (Reason: shortness of breath or wheezing) Qty: 180 0RF Creon 3,000-9,500- 15,000 unit capsule,delayed release(DR/EC) 1 cap PO TID cyanocobalamin (vitamin B-12) 1,000 mcg tablet 1,000 mcg PO .qd Print Language: Czech Instructions: COPD (Chronic Obstructive Pulmonary Disease) (ED), Dyspnea Scale and Exercise (ED) Additional Instructions: Follow-up with your PCP in the next 1 to 2 days. Return to the emergency department should symptoms worsen or become worrisome in any way. Referrals: Effie Jackman MD [Primary Care Provider] - 1 week Documented by User: Greg Keith MD 08/03/24 21:37 HPI HPI - General Adult General Chief complaint: Shortness of Breath/Dyspnea Stated complaint: Shortness of breath Time Seen by Provider: 08/03/24 17:47 Related Data Home Medications ?Medication ?Instructions ?Recorded ?Confirmed albuterol sulfate 90 mcg/actuation 2 puff inhalation DAILY 02/11/24 07/22/24 aerosol inhaler levothyroxine 75 mcg tablet 75 mcg PO DAILY 02/11/24 07/22/24 metoprolol succinate 25 mg 12.5 mg PO DAILY 05/11/24 07/22/24 tablet,extended release 24 hr cyanocobalamin (vitamin B-12) 1,000 mcg PO .qd 06/27/24 07/22/24 1,000 mcg tablet kryjix-jpdkyowb-imeaizw 1 cap PO TID 06/27/24 07/22/24 3,000-9,500-15,000 unit capsule, delayed rel (Creon) Previous Rx's ?Medication ?Instructions ?Recorded albuterol sulfate 2.5 mg/3 mL 2.5 mg (3 mL) inhalation Q6H PRN 05/26/24 (0.083 %) solution for nebulization shortness of breath or wheezing #180 mL nebulizers (Aeroneb Go Nebulizer) #1 ea 05/26/24 Allergies Allergy/AdvReac Type Severity Reaction Status Date / Time psyllium (From Metamucil) Allergy Severe Hives Verified 07/22/24 20:46 Opioid HPI Opioid Management Most Recent Opioid Data: Last Pain Scale 2 05/23/24 09:15 05/23/24 Last Pain Intensity 2 05/23/24 09:15 05/23/24 Last ORT Total Score 0 06/27/24 02:11 06/27/24 Last ORT Risk Category Low Risk 06/27/24 02:11 06/27/24 [facility] Medical History (Updated 08/03/24 @ 21:36 by Greg Keith MD) Severe protein-calorie malnutrition ?E43 - Unspecified severe protein-calorie malnutrition (ICD-10) Acute hyponatremia ?E87.1 - Hypo-osmolality and hyponatremia (ICD-10) Chronic diastolic (congestive) heart failure ?I50.32 - Chronic diastolic (congestive) heart failure (ICD-10) Primary hypertension ?I10 - Essential (primary) hypertension (ICD-10) Hypothyroidism (acquired) ?E03.9 - Hypothyroidism, unspecified (ICD-10) Abnormal CT scan, gastrointestinal tract ?R93.3 - Abnormal findings on diagnostic imaging of other parts of digestive tract (ICD-10) Ileus ?K56.7 - Ileus, unspecified (ICD-10) Abnormal CT of the abdomen ?R93.5 - Abnormal findings on diagnostic imaging of other abdominal regions, including retroperitoneum (ICD-10) Adult failure to thrive ?R62.7 - Adult failure to thrive (ICD-10) COPD (chronic obstructive pulmonary disease) ?J44.9 - Chronic obstructive pulmonary disease, unspecified (ICD-10) Shortness of breath ?R06.02 - Shortness of breath (ICD-10) Pacemaker ?Z95.0 - Presence of cardiac pacemaker (ICD-10) Asthma ?J45.909 - Unspecified asthma, uncomplicated (ICD-10) Surgical History History of cholecystectomy ?Z90.49 - Acquired absence of other specified parts of digestive tract (ICD- 10) History of hysterectomy ?Z90.710 - Acquired absence of both cervix and uterus (ICD-10) History of appendectomy ?Z90.49 - Acquired absence of other specified parts of digestive tract (ICD- 10) Family History Brother Family history of COPD (chronic obstructive pulmonary disease) Social History Within the past year, how often did you have a drink containing alcohol: monthly or less Within the past year, how many standard drinks containing alcohol did you have on a typical day: 1 or 2 Within the past year, how often did you have six or more drinks on one occasion: never Total score: 0 Score interpretation: A score less than 3 is consistent with normal alcohol consumption. Smoking status: Never smoker Non-prescribed substance use: denies use Previous occupational history: retired Highest level of school completed/degree received: Associate degree: occupational, technical, vocational program Are you now , , , , never or living with a partner: Little interest or pleasure in doing things: not at all Feeling down, depressed, or hopeless: not at all Feel stressed/tense/nervous/anxious/difficulty sleeping: not at all Do you think of yourself as: straight/heterosexual Gender Identity: female Exam Constitutional Vital Signs, click to edit/add: Last Vital Signs Pulse 98 H 08/03/24 19:14 Resp 20 08/03/24 19:14 BP 123/70 08/03/24 17:52 Pulse Ox 98 08/03/24 19:14 O2 Del Method Room Air 08/03/24 19:14 Course Vital Signs Vital signs: Vital Signs Pulse Rate 100 H 08/03/24 17:52 Respiratory Rate 20 08/03/24 17:52 Blood Pressure 123/70 08/03/24 17:52 Pulse Oximetry 98 08/03/24 17:52 Oxygen Delivery Method Room Air 08/03/24 17:52 Pulse Rate 98 H 08/03/24 19:14 Respiratory Rate 20 08/03/24 19:14 Blood Pressure 123/70 08/03/24 17:52 Pulse Oximetry 98 08/03/24 19:14 Oxygen Delivery Method Room Air 08/03/24 19:14 Medical Decision Making MDM Narrative Medical decision making narrative: 1899 patient was signed out at normal change of shift pending x-ray, repeat evaluation. Patient's history and physical as noted above. Likely COPD exacerbation. Chest x-ray pending. 1954 BNP elevation was noted, troponin within normal limits. When reevaluated patient, she states she feels almost fully back to her baseline. Has had no leg pain, swelling, tachypnea or tachycardia, evaluation, no concerns for, patient did have significant BNP elevation. Was evaluated, chart review was done, this is significantly improved to prior. There is no calf pain, calf tenderness, leg edema. 2134 x-ray was noted, no fluid overload, no clinical signs or symptoms of CHF. I discussed with patient as well as , she has chronic proBNP is significantly improved actually compared to baseline. No indication for hospitalization at this time, is ambulating without hypoxia, no PND, SERRANO. Advanced guidance has been given. Vss, pex is benign at this time. Pt to fu with pcp 1-2 days for reeval, rter should sx worsen, persist or become worrysome in any way. All incidental laboratory studies, EKG, radiologic findings have been noted and discussed with patient. Patient was reevaluated with a benign exam at this time. Pt expressed understanding and agreement with plan of care at this time. Will fu as planned. Pt stable for discharge. Lab Data Labs: Lab Results 08/03/24 Range/Units 18:08 WBC 5.1 (4.0-11.0) 10^3/uL RBC 3.86 L (4.20-5.40) 10^6/uL Hgb 11.4 L (12.0-16.0) g/dL Hct 36.5 (36.0-48.0) % MCV 94.6 (81.0-99.0) fL MCH 29.5 (26.7-34.0) pg MCHC 31.2 (29.9-35.2) g/dL RDW 15.5 H (11.0-15.0) % Plt Count 329 (150-450) 10^3/uL MPV 9.3 L (9.5-13.5) fL Neut % (Auto) 43.8 (43.0-75.0) % Lymph % (Auto) 35.4 (20.5-60.0) % [place] % (Auto) 11.1 (1.7-12.0) % Eos % (Auto) 8.9 H (0.9-7.0) % Baso % (Auto) 0.6 (0.2-2.0) % Neut # (Auto) 2.2 (1.4-6.5) 10^3/uL Lymph # (Auto) 1.8 (1.2-3.8) 10^3/uL [place] # (Auto) 0.6 (0.3-0.8) 10^3/uL Eos # (Auto) 0.5 (0.0-0.7) 10^3/uL Baso # (Auto) 0.0 (0.0-0.1) 10^3/uL Abs Immat Gran (auto) 0.01 (0.00-0.03) 10^3/uL Imm/Tot Granulo (auto) 0.2 (0.0-0.5) % PT 11.4 (9.0-11.6) sec INR 1.08 Sodium 140 (136-145) mmol/L Potassium 5.1 (3.5-5.1) mmol/L Chloride 106 (98-107) mmol/L Carbon Dioxide 27.3 (21.0-32.0) mmol/L Anion Gap 11.8 BUN 15.0 (7.0-18.0) mg/dL Creatinine 0.86 (0.55-1.02) mg/dL Est GFR ( Amer) >60 (>=60 mL/min/1.73m^2) Est GFR (Non-Af Amer) >60 (>=60 mL/min/1.73m^2) BUN/Creatinine Ratio 17.4 Glucose 89 (74-106) mg/dL Calcium 8.7 (8.5-10.1) mg/dL Total Bilirubin 0.3 (0.2-1.0) mg/dL AST 20 (15-37) U/L ALT 22 (14-59) U/L Alkaline Phosphatase 96 (46-116) U/L Troponin I High Sens 14.2 (4.0-51.3) pg/mL NT-Pro-B Natriuret Pep 2949.0 H* (<=1800.0) pg/mL Total Protein 6.1 L (6.4-8.2) g/dL Albumin 3.1 L (3.4-5.0) g/dL Globulin 3.0 g/dL Albumin/Globulin Ratio 1.0 Discharge Plan Discharge Chief Complaint: Shortness of Breath/Dyspnea Clinical Impression: COPD exacerbation Patient Disposition: Home, Self-Care Time of Disposition Decision: 21:36 Condition: Good Prescriptions / Home Meds: No Action levothyroxine 75 mcg tablet 75 mcg PO DAILY albuterol sulfate 90 mcg/actuation HFA aerosol inhaler 2 puff INHALATION DAILY metoprolol succinate 25 mg tablet extended release 24 hr 12.5 mg PO DAILY (DME) nebulizers [Aeroneb Go Nebulizer] Misc See Rx Instructions .Route Qty: 1 0RF Rx Instructions: As directed please use for breathing treatment as directed albuterol sulfate 2.5 mg /3 mL (0.083 %) solution for nebulization 2.5 mg inhalation Q6H PRN (Reason: shortness of breath or wheezing) Qty: 180 0RF Creon 3,000-9,500- 15,000 unit capsule,delayed release(DR/EC) 1 cap PO TID cyanocobalamin (vitamin B-12) 1,000 mcg tablet 1,000 mcg PO .qd Print Language: Czech Instructions: COPD (Chronic Obstructive Pulmonary Disease) (ED), Dyspnea Scale and Exercise (ED) Additional Instructions: Follow-up with your PCP in the next 1 to 2 days. Return to the emergency department should symptoms worsen or become worrisome in any way. Referrals: Effie Jackman MD [Primary Care Provider] - 1 week
[2024-08-03 18:17] LABS: Basophils Percent Auto 0.6 % (0.2-2.0); Eosinophils Absolute Auto 0.5 10^3/uL (0.0-0.7); Eosinophils Percent Auto 8.9 % (0.9-7.0); Hematocrit 36.5 % (36.0-48.0); Hemoglobin 11.4 g/dL (12.0-16.0); Immature Granulocytes Abs Auto 0.01 10^3/uL (0.00-0.03); Immature Granulocytes Pct Auto 0.2 % (0.0-0.5); Lymphocytes Absolute Auto 1.8 10^3/uL (1.2-3.8); Lymphocytes Percent Auto 35.4 % (20.5-60.0); Mean Corpuscular HGB Conc 31.2 g/dL (29.9-35.2); Mean Corpuscular Hemoglobin 29.5 pg (26.7-34.0); Mean Corpuscular Volume 94.6 fL (81.0-99.0); Mean Platelet Volume 9.3 fL (9.5-13.5); Monocytes Absolute Auto 0.6 10^3/uL (0.3-0.8); Monocytes Percent Auto 11.1 % (1.7-12.0); Neutrophils Absolute Auto 2.2 10^3/uL (1.4-6.5); Neutrophils Percent Auto 43.8 % (43.0-75.0); Platelet Count 329 10^3/uL (150-450); Red Blood Count 3.86 10^6/uL (4.20-5.40); Red Cell Distribution Width 15.5 % (11.0-15.0); White Blood Count 5.1 10^3/uL (4.0-11.0)
[2024-08-03 18:31] LABS: INR 1.08; Prothrombin Time 11.4 sec (9.0-11.6)
[2024-08-03 18:42] LABS: Alanine Aminotransferase 22 U/L (14-59); Albumin Level 3.1 g/dL (3.4-5.0); Alkaline Phosphatase 96 U/L (46-116); Anion Gap 11.8; Aspartate Amino Transferase 20 U/L (15-37); BUN Creatinine Ratio 17.4; Bilirubin Total 0.3 mg/dL (0.2-1.0); Calcium 8.7 mg/dL (8.5-10.1); Carbon Dioxide 27.3 mmol/L (21.0-32.0); Chloride 106 mmol/L (98-107); Estimated GFR (African America >60 (>=60 mL/min/1.73m^2); Estimated GFR (Non-African Ame >60 (>=60 mL/min/1.73m^2); Glucose 89 mg/dL (74-106); Potassium 5.1 mmol/L (3.5-5.1); Sodium 140 mmol/L (136-145); Total Protein 6.1 g/dL (6.4-8.2)
[2024-08-03 18:49] LABS: Troponin I High Sensitivity 14.2 pg/mL (4.0-51.3)
[2024-08-03] MEDS: DEXAMETHASONE SOD PHOS 10 MG/ML VIAL IV (18:51)
[2024-08-03 19:05] VITALS: PULSE 97; O2SAT 97
[2024-08-03] MEDS: IPRATROPIUM/ALBUTEROL SULFATE 3 ML AMPUL.NEB IH (19:05)
[2024-08-03 19:14] VITALS: PULSE 98; O2SAT 98
== END 2024-08-03 22:11 | disposition home or self-care (01) ==
PROVIDERS: Emergency Provider Emergency Medicine; PCP Family Medicine
DX: J44.1 Chronic obstructive pulmonary disease with (acute) exacerbation (principal)
CPT/HCPCS: 36415; 71046; 80053; 83880; 84484; 85025; 85610; 93005; 94640; 96374; 99285; J1100

== ENCOUNTER 2024-09-10 17:15 | Emergency (ER) | payer MEDICARE, OTHER, SELFPAY ==
[2024-09-10] VITALS (19 sets, daily range): BP systolic 135; BP diastolic 76; PULSE 92–105; TEMP 36.8; O2SAT 88–100; BMI 15.3
--- OUTSIDE RECORDS SUMMARY | 2024-09-10 17:23 | XMS_ITS | CCD ---
Author Organization [facility] Care Team Providers Care Voltmeter Operator Name Role Phone PHYSICIAN, DEFAULT Unavailable Unavailable PHYSICIAN, DEFAULT Unavailable Unavailable DANIELLE COFFMAN Unavailable Unavailable JACK PINA Unavailable Unavailable NONSTAFF, [facility] Unavailable Unavailable Jack Sanches FLEXOGRAPHIC PRESS SET UP OPERATOR-C Admitting UnavailJack Pandey FLEXOGRAPHIC PRESS SET UP OPERATOR-C Attending UnavailJani Paul Primary Care Unavailable [...] sources) levoFLOXacin; Translations: [LEVOFLOXACIN] Drug Allergy 08-07-2017 [facility] Repository (3 sources) psyllium; Translations: [PSYLLIUM] Drug Allergy 02-22-2009 [facility] Repository (11 sources) levoFLOXacin Drug Allergy 02-05-2016 hives [facility] Repository (1 source) Penicillin Drug Allergy [facility] Repository (11 sources) Psyllium Drug Allergy 03-03-2013 anaphylaxis [facility] Rep[facility] Medications Current Medications Medication Drug Class(es) Dates Sig (Normalized) Sig (Original) Acetaminophen (10 sources) Acetaminophen Active Albuterol (10 sources) beta2-Adrenergic Agonist Albuterol Sulfate HFA Active amylase 48205 unt / lipase 3000 unt / protease 9500 unt delayed release oral capsule (10 sources) take 0844-1346 [IU] by mouth three times daily at mealtime Creon 0557-3643 UNIT as directed Orally tid w meals [...] 3 Chronic Other aftercare (1 source) Other parts counterman (current) drug therapy; Translations: [OTH [facility] CURRENT DRUG THERAPY] Onset: 3 Episodic Other [...] Onset: 7 Unclassified (1 source) Fall / 87574() Onset: 7 Unclassified (1 source) Arm Injury / 65111() Onset: 7 Unclassified (1 source) R06.02 - [...] Range Facility Office Visiton 04-11-2024 Follow-up visit [id number] Asia Dominguez 1940 F Date Provider Department Center 04/11/2024 [id number]-OJYFIJPADMINI PATEL [facility] D[facility]ne [facility] Family History Problem Relation Age of Onset Stroke Mother Other Mother No Known Problems Father Family Status - Relation Status Age at Mother Father Level of Service:72324 [place] POSTOP FOLLOW UP VISIT RELATED TO ORIGINAL PX Normal [facility] HEMOGLOBIN AND HEMATOCRIT, B LOODon 04-05-2024 Hematocrit (Bld) [Volume fraction] 29.6 % Low 36.0-48.0 [facility] Comment on above: Performed By: #### L [id number] #### [facility] ([facility]AK[facility]) [address] [place] [address] Hemoglobin (Bld) [Mass/Vol] 9.8 g/dL Low 12.0-15.0 [facility] Comment on above: Performed By: #### L [id number] #### [facility] ([facility]ER) [address] [place] [address] 30on 04-04-2024 30 The patient is Moderately [...] goals for the shift include stable vitals [facility] 30 Daily Case Managemen t Update Multidisciplinary rounds have been completed. Barriers to Discharge: Pending Clinical Course. Admitted with Third degree heart block-Planning PPM implantation today. Planning to Return [place] [facility] living with on discharge. Diet: Dietary Orders (From admission, onward) Start Ordered 04/04/24 0001 Diet NPO Diet effective midnight Comments: Sips with medications Question: Reason for NPO: Answer: Operation/Procedure 04/03/24 0744 04/03/24 1233 Special Kitchen Request Once Comments: Grilled cheese on wheat, vanilla ice, fruit cup, 2 diet coke 04/03/24 1235 04/03/24 0824 Special Kitchen Request Once Comments: Plz 2 hong konger toast, butter and syrup.turkey sausage, grits with brown sugar and butter, raspberry tunisian,orange juice and coffee, cream and sugar 04/03/24 0826 04/02/24 1302 Special Kitchen Request Once Comments: Plz send hot roast beef sandwich, mashed potatoes and gravy, Chicken noodle soup, Ramos pie,diet cola, cottage cheese 04/02/24 1303 Physician Expected Discharge Date: 04/05/2024 Discharge Delays: PT Six Click Score: 23 OT Six Click Score: PT Recommendations: OT Recommendations: New Consults: [facility] 30 The patient is Moderately Stable - Low risk of patient condition declining or worsening The patient's goals for the shift include comfort The clinical goals for the shift include Vss, safety Over the shift, the patient did not make progress toward the following goals. Barriers to progression include na. Recommendations to address these barriers include na. [facility] 30on 04-03-2024 30 The patient is Moderately Stable - Low risk of patient condition declining or worsening The patient's goals for the shift include comfort and rest The clinical goals for the shift include stable VS Over the shift, the patient did not make progress toward the following goals. Barriers to progression include na. Recommendations to address these barriers include na. [facility] 30 The patient is Moderately Stable - Low risk of patient condition declining or worsening The patient's goals for the shift include comfort and rest The clinical goals for the shift include stable VS Over the shift, the patient continues to make progress toward the following goals. [facility] 30on 04-02-2024 30 The patient is Moderately Stable - Low risk of patient condition declining or worsening The patient's goals for the shift include The clinical goals for the shift include vss Over the shift, the patient did not make progress toward the following goals. Barriers to progression include na. Recommendations to address these barriers include na. [facility] 30 The patient is Moderately Stable - Low risk of patient condition declining or worsening The patient's goals for the shift include The clinical goals for the shift include vss Over the shift, the patient continues to make progress toward the following goal. [facility] CONSULTon 04-02-2024 CONSULT --- Attestation signed by [...] QT Interval 532 QTC CALCULATION(BAZETT) 411 P [place] 82 R-[place] -60 T Wave [place] 71 Impression Sinus rhythm with complete heart [...] 12 (more content not included)... Normal [facility] APTTon 04-01-2024 ACTIVATED PARTIAL THROMBOPLASTIN TIME IN PPP BY COAGULATION ASSAY 33.9 Seconds Normal 25.0-35.0 [facility] Comment on above: Result Comment: Clin ical significance of the APTT is questionable in the presence of heparin. Performed By: #### L [id number] ####[facility] ([facility])[address] [place] [address] B-TYPE NATRIURETIC PEPTIDEon 04-01-2024 Natriuretic peptide B (Bld) [Mass/Vol] 566 pg/mL High 0-100 [facility] Comment on above: Performed By: #### L [id number] #### [facility] ([facility]) [address] [place] [address] BASIC METABOLIC PANELon - Anion gap [Moles/Vol] 9 mmol/L Normal 7-20 [facility] Comment on above: Performed By: #### L [id number] ####[facility] ([facility])[address] [place] [address] Calcium [Mass/Vol] 8.0 mg/dL Low 8.6-10.3 [facility] Comment on above: Performed By: #### L [id number] ####[facility] ([facility]ER)[address] [place] [address] Chloride [Moles/Vol] 112 mmol/L High 98-107 [facility] Comment on above: Performed By: #### L [id number] ####[facility] ([facility]ER)[address] [place] [address] CO2 [Moles/Vol] 18 mmol/L Low 21-31 [facility] Comment on above: Performed By: #### L [id number] ####[facility] [place] [address] Creatinine [Mass/Vol] 0.83 mg/dL Normal 0.60-1.20 [facility] Comment on above: Performed By: #### L [id number] ####[facility] [place] [address] GLOMERULAR FILTRATION RATE ML/MIN/1.73 SQ M.PREDICTED 69.0 mL/min/1.73m*2 Normal >60.0 [facility] Comment on above: Result Comment: [facility]???s estimated glomerular filtration rate (eGFR) will [...] L AB15 ####[facility] [place] [address] Glucose [Mass/Vol] 91 mg/dL Normal 70-100 [facility] Comment on above: Performed By: #### L [id number] ####[facility] ([facility])[address] [place] [address] Potassium [Moles/Vol] 4.3 mmol/L Normal 3.5-5.1 [facility] Comment on above: Performed By: #### L [id number] ####[facility] ([facility])[address] [place] [address] Sodium [Moles/Vol] 135 mmol/L Low 136-145 [facility] Comment on above: Performed By: #### L [id number] ####[facility] [place] [address] Urea nitrogen [Mass/Vol] 19 mg/dL Normal 7-25 [facility] Comment on above: Performed By: #### L [id number] ####[facility] ([facility])[address] [place] [address] UREA NITROGEN/CREATININE (MASS RATIO) IN SER/PLAS 22.9 Normal [facility] Comment on above: Performed By: #### L [id number] ####[facility] ([facility])[address] [place] [address] CBC WITH AUTO DIFFERENTIALon 04-01-2024 Basophils (Bld) [#/Vol] 0.04 10*3/uL Normal 0.00-0.20 [facility] Comment on above: Performed By: #### L [id number] #### [facility] ([facility]) [address] [place] [address] Basophils/100 WBC (Bld) 1.0 % Normal 0.0-1.0 [facility] Comment on above: Performed By: #### L [id number] #### [facility] ([facility]ER) [address] [place] [address] Eosinophils (Bld) [#/Vol] 0.56 10*3/uL High 0.00-0.50 [facility] Comment on above: Performed By: #### L [id number] #### [facility] [address] [place] [address] Eosinophils/100 WBC (Bld) 13.9 % High 0.0-6.0 [facility] Comment on above: Performed By: #### L [id number] #### [facility] ([facility]) [address] [place] [address] Erythrocyte distribution width (RBC) [Ratio] 14.2 % Normal 11.5-15.0 [facility] Comment on above: Performed By: #### L [id number] #### [facility] ([facility]) [address] [place] [address] ERYTHROCYTE MEAN CORPUSCULAR HEMOGLOBIN CONCENTRATION (G/DL) BY AUTOMATED 31.3 g/dL Low 32.0-35.0 [facility] Comment on above: Performed By: #### L [id number] #### [facility] ([facility]) [address] [place] [address] Hematocrit (Bld) [Volume fraction] 31.3 % Low 36.0-48.0 [facility] Comment on above: Performed By: #### L [id number] #### [facility] ([facility] [address] [place] [address] Hemoglobin (Bld) [Mass/Vol] 9.8 g/dL Low 12.0-15.0 [facility] Comment on above: Performed By: #### L [id number] #### [facility] ([facility] [address] [place] [address] Immature granulocytes (Bld) [#/Vol] 0.00 10*3/uL Normal 0.00-0.20 [facility] Comment on above: Performed By: #### L [id number] #### [facility] [address] [place] [address] Immature granulocytes/100 WBC (Bld) 0.0 % Normal 0.0-1.0 [facility] Comment on above: Performed By: #### L [id number] #### [facility] ([facility]) [address] [place] [address] Lymphocytes (Bld) [#/Vol] 1.85 10*3/uL Normal 1.20-4.00 [facility] Comment on above: Performed By: #### L [id number] #### [facility] [address] [place] [address] Lymphocytes/100 WBC (Bld) 45.9 % High 20.0-45.0 [facility] Comment on above: Performed By: #### L [id number] #### [facility] [address] [place] [address] MCH (RBC) [Entitic mass] 30.9 pg Normal 27.0-33.0 [facility] Comment on above: Performed By: #### L [id number] #### [facility] ([facility] [address] [place] [address] MCV (RBC) [Entitic vol] 98.7 fL High 82.0-98.0 [facility] Comment on above: Performed By: #### L [id number] #### [facility] ([facility]) [address] [place] [address] Monocytes (Bld) [#/Vol] 0.45 10*3/uL Normal 0.10-1.00 [facility] Comment on above: Performed By: #### L [id number] #### [facility] ([facility] [address] [place] [address] Monocytes/100 WBC (Bld) 11.2 % Normal 5.0-12.0 [facility] Comment on above: Performed By: #### L [id number] #### [facility] ([facility] [address] [place] [address] Neutrophils (Bld) [#/Vol] 1.13 10*3/uL Low 1.60-7.60 [facility] Comment on above: Performed By: #### L [id number] #### [facility] [address] [place] [address] Neutrophils/100 WBC (Bld) 28.0 % Low 40.0-72.0 [facility] Comment on above: Performed By: #### L [id number] #### [facility] ([facility] [address] [place] [place] [address] NRBC (PER 100 WBCS) BY AUTOMATED COUNT 0.0 % Normal 0 [facility] Comment on above: Performed By: #### L [id number] #### [facility] ([facility]) [address] [place] [address] PLATELETS (10*3/UL) IN BLOOD AUTOMATED COUNT 177 10*3/uL Normal 150-400 [facility] Comment on above: Performed By: #### L [id number] #### [facility] ([facility]) [address] [place] [address] RBC (Bld) [#/Vol] 3.17 10*6/uL Low 3.80-5.00 [facility] Comment on above: Performed By: #### L [id number] #### [facility] ([facility]) [address] [place] [address] WBC (Bld) [#/Vol] 4.03 10*3/uL Normal 4.00-10.60 [facility] Comment on above: Performed By: #### L [id number] #### [facility] ([facility]) [address] [place] [address] EDPROVon 04-01-2024 EDPROV --- Attestation signed by Felicia Medina DO at 04/02/2024 3:16 PM 2022 Emergency Medicine Coding Guide from [email or web address] on 04/02/2024 All calculations should be rechecked [...] Patient presents with Bradycardia Pt sent by [place] cardiology for bradycardia. Pt c/o occasional SOB but denies being symptomatic otherwise. HPI 83-year-old female with history of Alzheimer disease, asthma, A-fib, COPD, and hypothyroidism presenting due to concerns of third-degree heart block. Patient evaluated at offshoring manager office today after patient was found to be bradycardic at neurologist office. Per cardiology patient was in third-degree heart block and sent to be evaluated for possible pacemaker placement. Patient states that she feels tired all the time but denies any other symptoms with it. Ricardo Coma Scale Score: 15 Patient History Past Medical History: Diagnosis Date Abnormal ECG Alzheimer disease ([facility]) Asthma Atrial fibrillation ([facility]) Bradycardia COPD (chronic obstructive pulmonary disease) ([facility]) Dementia ([facility]) Hypothyroidism RLS (restless legs [...] 1843 Rate: 36 Rhythm: 3rd degree block [place]: LAD QRS: 142 MI: n/a Qtc: 411 Other findings: TWI in V3 [TS] ED Course User Index [TS] Felicia Medina DO Diagnoses as of 04/01/242002 Third degree heart block (CMS/HCC) Medical Decision Making Reviewed patie (more content not included)... Normal [facility] Office Visiton 04-01-2024 Follow-up visit [id number] Asia Dominguez 1940 F Date Provider Department Center 04/01/2024 79831-LDSEIJPADMINI BILLINGS JAV[facility] Family History Problem Relation Age of Onset Stroke Mother Other Mother No Known Problems Father Family Status - Relation Status Age at Mother Father Level of Service:85770 [place] OFFICE/OUTPATIENT NEW MODERATE MDM 45 MINUTES Normal [facility] PROTIME-INRon 04-01-2024 INR IN PPP BY COAGULATION ASSAY 1.18 High 0.90-1.10 [facility] Comment on above: Result Comment: ACCC [...] L [id number] #### [facility] [employer]) [address] [place] [address] PROTHROMBIN TIME (PT) IN PPP BY COAGULATION ASSAY 15.0 Seconds High 12.3-14.8 [facility] Comment on above: Performed By: #### L [id number] #### [facility] [employer]) [address] [place] [address] T4, FREEon 04-01-2024 THYROXINE (T4) FREE (NG/DL) IN SER/PLAS 0.77 ng/dL Normal 0.71-1.85 [facility] Comment on above: Performed By: #### L [id number] ####[facility])[address] [place] [address] TROPONIN Ion 04-01-2024 Troponin I.cardiac [Mass/Vol] 0.04 ng/mL Normal 0.00-0.04 [facility] Comment on above: Performed By: #### L [id number] #### [facility] ([facility]) [address] [place] [address] TSH3 REFLEX TO FT4on 024 THYROTROPIN (MIU/L) IN SER/PLAS BY DETECTION LIMIT <= 0.05 MIU/L 6.13 mIU/L High 0.34-5.60 [facility] Comment on above: Performed By: #### L [id number] #### [facility] ([facility]) [address] [place] [address] CULTURE URINEon 01-02-2023 CULTURE URINE Isolate 1 [...] F Nitrofurantoin <=16 S F Normal [facility] Comment on above: Performed By: #### C BC #### [facility] [address] [place] [address] Dr. Con Santana BNPon 01-01-2023 Natriuretic peptide B (Bld) [Mass/Vol] 6147.0 pg/mL Critically high <=1,800.0 [facility] Comment on above: Performed By: #### H STROPN #### [facility] [address] [place] [address] Dr. Con Santana CBC AUTO DIFFon 01-01-2023 BASO # 0.0 103/ul Normal 0.0-0.1 [facility] Comment on above: Performed By: #### C BC #### [facility] [address] [place] [address] [address] Con Santana Basophils/100 WBC (Bld) 0.2 % Normal 0.2-2.0 [facility] Comment on above: Performed By: #### C BC #### [facility] [address] [place] [address] Dr. Con Santana EO # 0.0 103/ul Normal 0.0-0.7 [facility] Comment on above: Performed By: #### C BC #### [facility] [address] [place] [address] Dr. Con Santana Eosinophils/100 WBC (Bld) 0.0 % Critically low 0.9-7.0 [facility] Comment on above: Performed By: #### C BC #### [facility] [address] [place] [address] Dr. Con Santana Erythrocyte distribution width (RBC) [Ratio] 14.4 % Normal 11.0-15.0 [facility] Comment on above: Performed By: #### C BC #### [facility] [address] [place] [address] Dr. Con Santana Hematocrit (Bld) [Volume fraction] 28.5 % Critically low 36.0-48.0 [facility] Comment on above: Performed By: #### C BC #### [facility] [address] [place] [address] Dr. Con Santana Hemoglobin (Bld) [Mass/Vol] 9.1 g/dL Critically low 12.0-16.0 [facility] Comment on above: Performed By: #### C BC #### [facility] [address] [place] [address] Dr. Con Santana IG # 0.14 10e3/ul Critically high 0.00-0.03 [facility] Comment on above: Performed By: #### C BC #### [facility] [address] [place] [address] Dr. Con Santana IG % 1.1 % Critically high 0.0-0.5 [facility] Comment on above: Performed By: #### C BC #### [facility] [address] [place] [address] [address] Con Santana LYMPH # 0.9 103/ul Critically low 1.2-3.8 [facility] Comment on above: Performed By: #### C BC #### [facility] [address] [place] [address] Dr. Con Santana Lymphocytes/100 WBC (Bld) 7.3 % Critically low 20.5-60.0 [facility] Comment on above: Performed By: #### C BC #### [facility] [address] [address] [address] Con Santana MANUAL DIFF REQ NO Normal [facility] Comment on above: Performed By: #### C BC #### [facility] [address] [place] [address] Dr. Con Santana MCH (RBC) [Entitic mass] 31.1 pg Normal 26.7-34.0 [facility] Comment on above: Performed By: #### C BC #### [facility] [address] [place] [address] Dr. Con Santana MCHC (RBC) [Mass/Vol] 31.9 g/dL Normal 29.9-35.2 [facility] Comment on above: Performed By: #### C BC #### [facility] [address] [place] [address] Dr. Con Santana MCV (RBC) [Entitic vol] 97.3 fL Normal 81.0-99.0 [facility] Comment on above: Performed By: #### C BC #### [facility] [address] [place] [address] Dr. Con Santana MONO # 1.3 103/ul Critically high 0.3-0.8 [facility] Comment on above: Performed By: #### C BC #### [facility] [address] [place] [address] Dr. Con Santana Monocytes/100 WBC (Bld) 10.0 % Normal 1.7-12.0 [facility] Comment on above: Performed By: #### C BC #### [facility] [address] [address] [address] Con Santana NEUT # 10.5 103/ul Critically high 1.4-6.5 [facility] Comment on above: Performed By: #### C BC #### [facility] [address] [place] [address] Dr. Con Santana Neutrophils/100 WBC (Bld) 81.4 % Critically high 43.0-75.0 [facility] Comment on above: Performed By: #### C BC #### [facility] [address] [place] [address] Dr. Con Santana Platelet mean volume (Bld) [Entitic vol] 10.5 fL Normal 9.5-13.5 [facility] Comment on above: Performed By: #### C BC #### [facility] [address] [place] [address] Dr. Con Santana PLT 179 103/ul Normal 150-450 [facility] Comment on above: Performed By: #### C BC #### [facility] [address] [place] [address] Dr. Con Santana RBC 2.93 106/ul Critically low 4.20-5.40 [facility] Comment on above: Performed By: #### C BC #### [facility] [address] [place] [address] Dr. Con Santana WBC 12.8 103/ul Critically high 4.0-11.0 [facility] Comment on above: Performed By: #### C BC #### [facility] [address] [place] [address] Dr. Con Santana POINT OF CARE GLUCOSEon Glucose [Mass/Vol] 97 mg/dL Normal 74-106 [facility] Comment on above: Performed By: #### C BC #### [facility] [address] [place] [address] Dr. Con Santana PROF CHEM 8 (BAS METB)on Anion gap [Moles/Vol] 14.3 mmol/L Normal [facility] Comment on above: Performed By: #### H STROPN #### [facility] [address] [address] [address] Con Santana Calcium [Mass/Vol] 7.2 mg/dL Critically low 8.5-10.1 [facility] Comment on above: Performed By: #### H STROPN #### [facility] [address] [address] [address] Con Snatana Chloride [Moles/Vol] 108 mmol/L Critically high 98-107 [facility] Comment on above: Performed By: #### H STROPN #### [facility] [address] [address] [address] Con Santana CO2 [Moles/Vol] 22.6 mmol/L Normal 21.0-32.0 [facility] Comment on above: Performed By: #### H STROPN #### [facility] [address] [address] [address] Con Santana Creatinine [Mass/Vol] 1.08 mg/dL Critically high 0.55-1.02 [facility] Comment on above: Performed By: #### H STROPN #### [facility] [address] [address] [address] Con Santana EGFR-AF POLISH 59 mL/min/1.73m2 Critically low >=60 [facility] Comment on above: Performed By: #### H STROPN #### [facility] [address] [address] [address] Con Santana EGFR-NON AF POLISH 48 mL/min/1.73m2 Critically low >=60 [facility] Comment on above: Performed By: #### H STROPN #### [facility] [address] [address] [address] Con Santana Glucose [Mass/Vol] 100 mg/dL Normal 74-106 [facility] Comment on above: Performed By: #### H STROPN #### [facility] [address] [address] [address] Con Santana Potassium [Moles/Vol] 3.9 mmol/L Normal 3.5-5.1 [facility] Comment on above: Performed By: #### H STROPN #### [facility] [address] [address] [address] Con Santana Sodium [Moles/Vol] 141 mmol/L Normal 136-145 [facility] Comment on above: Performed By: #### H STROPN #### [facility] [address] [place] [address] Dr. Con Santana Urea nitrogen [Mass/Vol] 27.0 mg/dL Critically high 7.0-18.0 [facility] Comment on above: Performed By: #### H STROPN #### [facility] [address] [place] [address] Dr. Con Santana Urea nitrogen/Creatinine [Mass ratio] 25.0 mg/mg Normal [facility] Comment on above: Performed By: #### H STROPN #### [facility] [address] [place] [address] Dr. Con Santana BNPon 12-31-2022 Natriuretic peptide B (Bld) [Mass/Vol] 7148.0 pg/mL Critically high <=1,800.0 [facility] Comment on above: Performed By: #### H STROPN #### [facility] [address] [place] [address] Dr. Con Santana CBC W MANUAL DIFFon 01-01-20 23 ATYPICAL LYMPH # Normal [facility] Comment on above: Performed By: #### P OCGLUC #### [facility] [address] [place] [address] Dr. Con Santana ATYPICAL LYMPH % Normal [facility] Comment on above: Performed By: #### P OCGLUC #### [facility] [address] [place] [address] Dr. Con Santana BAND # 0.0 103/ul Normal 0.0-0.3 [facility] Comment on above: Performed By: #### P OCGLUC #### [facility] [address] [place] [address] Dr. Con Santana BAND % 0 % Normal 0-5 [facility] Comment on above: Performed By: #### P OCGLUC #### [facility] [address] [place] [address] Dr. oCn Santana BASOM # 0.00 103/ul Normal 0.00-0.10 [facility] Comment on above: Performed By: #### P OCGLUC #### [facility] [address] [address] [address] Con Santana BASOM % 0.0 % Critically low 0.2-2.0 [facility] Comment on above: Performed By: #### P OCGLUC #### [facility] [address] [address] [address] Con Santana BLAST # Normal [facility] Comment on above: Performed By: #### P OCGLUC #### [facility] [address] [address] [address] Con Santana BLAST % Normal [facility] Comment on above: Performed By: #### P OCGLUC #### [facility] [address] [address] [address] Con Santana CORRECTED WBC Normal 4.0-11.0 [facility] Comment on above: Performed By: #### P OCGLUC #### [facility] [address] [address] [address] Con Santana EOS # 0.00 103/ul Normal 0.00-0.70 [facility] Comment on above: Performed By: #### P OCGLUC #### [facility] [address] [address] [address] Con Santana EOS% 0.0 % Critically low 0.9-7.0 [facility] Comment on above: Performed By: #### P OCGLUC #### [facility] [address] [address] [address] Con Santana HCT 27.8 % Critically low 36.0-48.0 [facility] Comment on above: Performed By: #### P OCGLUC #### [facility] [address] [address] [address] Con Santana HGB 9.0 g/dl Critically low 12.0-16.0 [facility] Comment on above: Performed By: #### P OCGLUC #### [facility] [address] [address] [address] Con Santana LYMPHM # 0.53 103/ul Critically low 1.20-3.80 [facility] Comment on above: Performed By: #### P OCGLUC #### [facility] [address] [address] [address] Con Santana LYMPHM% 5.0 % Critically low 20.5-60.0 [facility] Comment on above: Performed By: #### P OCGLUC #### [facility] [address] [address] [address] Con Santana MCH 31.0 pg Normal 26.7-34.0 [facility] Comment on above: Performed By: #### P OCGLUC #### [facility] [address] [address] [address] Con Santana MCHC 32.4 g/dl Normal 29.9-35.2 [facility] Comment on above: Performed By: #### P OCGLUC #### [facility] [address] [address] [address] Con Santana MCV 95.9 fL Normal 81.0-99.0 [facility] Comment on above: Performed By: #### P OCGLUC #### [facility] [address] [address] [address] Con Santana METAMYELOCYTE # Normal [facility] Comment on above: Performed By: #### P OCGLUC #### [facility] [address] [address] [address] Con Santana METAMYELOCYTE % Normal [facility] Comment on above: Performed By: #### P OCGLUC #### [facility] [address] [address] [address] Con Santana MONOM# 0.11 103/ul Critically low 0.30-0.80 [facility] Comment on above: Performed By: #### P OCGLUC #### [facility] [address] [address] [address] Con Santana MONOM% 1.0 % Critically low 1.7-12.0 [facility] Comment on above: Performed By: #### P OCGLUC #### [facility] [address] [address] [address] Con Santana MPV 10.9 fL Normal 9.5-13.5 [facility] Comment on above: Performed By: #### P OCGLUC #### [facility] [address] [address] [address] Con Santana MYELOCYTE # Normal [facility] Comment on above: Performed By: #### P OCGLUC #### [facility] [address] [address] [address] Con Santana MYELOCYTE % Normal [facility] Comment on above: Performed By: #### P OCGLUC #### [facility] [address] [place] [address] Dr. Con Santana NRBC Normal [facility] Comment on above: Performed By: #### P OCGLUC #### [facility] [address] [address] [address] Con Santana PLT 184 103/ul Normal 150-450 [facility] Comment on above: Performed By: #### P OCGLUC #### [facility] [address] [address] [address] Con Santana RBC 2.90 106/ul Critically low 4.20-5.40 [facility] Comment on above: Performed By: #### P OCGLUC #### [facility] [address] [address] [address] Con Santana RDW 14.5 % Normal 11.0-15.0 [facility] Comment on above: Performed By: #### P OCGLUC #### [facility] [address] [address] [address] Con Santana SEG # 9.96 103/ul Critically high 1.40-6.50 [facility] Comment on above: Performed By: #### P OCGLUC #### [facility] [address] [place] [address] Dr. Con Santana SEG % 94.0 % Critically high 43.0-75.0 [facility] Comment on above: Performed By: #### P OCGLUC #### [facility] [address] [address] [address] Con Santana WBC 10.6 103/ul Normal 4.0-11.0 [facility] Comment on above: Performed By: #### P OCGLUC #### [facility] [address] [address] [address] Con Santana POINT OF CARE GLUCOSEon Glucose [Mass/Vol] 145 mg/dL Critically high 74-106 [facility] Comment on above: Performed By: #### I NFLUAB #### [facility] [address] [address] [address] Con Santana Glucose [Mass/Vol] 162 mg/dL Critically high [facility] Comment on above: Performed By: #### E LISA JAVIER #### [facility] [address] [place] [address] Dr. Con Santana Glucose [Mass/Vol] 141 mg/dL Critically high 74-106 [facility] Comment on above: Performed By: #### C BC #### [facility] [address] [place] [address] Dr. Con Santana PROF CHEM 8 (BAS METB)on Anion gap [Moles/Vol] 16.5 mmol/L Normal [facility] Comment on above: Performed By: #### H STROPN #### [facility] [address] [place] [address] Dr. Con Santana Calcium [Mass/Vol] 7.3 mg/dL Critically low 8.5-10.1 [facility] Comment on above: Performed By: #### H STROPN #### [facility] [address] [place] [address] Dr. Con Santana Chloride [Moles/Vol] 108 mmol/L Critically high 98-107 [facility] Comment on above: Performed By: #### H STROPN #### [facility] [address] [place] [address] Dr. Con Santana CO2 [Moles/Vol] 18.5 mmol/L Critically low 21.0-32.0 [facility] Comment on above: Performed By: #### H STROPN #### [facility] [address] [address] [address] Con Santana Creatinine [Mass/Vol] 1.14 mg/dL Critically high 0.55-1.02 [facility] Comment on above: Performed By: #### H STROPN #### [facility] [address] [address] [address] Con Santana EGFR-AF POLISH 55 mL/min/1.73m2 Critically low >=60 [facility] Comment on above: Performed By: #### H STROPN #### [facility] [address] [place] [address] Dr. Con Santana EGFR-NON AF POLISH 45 mL/min/1.73m2 Critically low >=60 [facility] Comment on above: Performed By: #### H STROPN #### [facility] [address] [address] [address] Con Santana Glucose [Mass/Vol] 151 mg/dL Critically high 74-106 [facility] Comment on above: Performed By: #### H STROPN #### [facility] [address] [place] [address] Dr. Con Santana Potassium [Moles/Vol] 4.0 mmol/L Normal 3.5-5.1 [facility] Comment on above: Performed By: #### H STROPN #### [facility] [address] [address] [address] Con Santana Sodium [Moles/Vol] 139 mmol/L Normal 136-145 [facility] Comment on above: Performed By: #### H STROPN #### [facility] [address] [address] [address] Con Santana Urea nitrogen [Mass/Vol] 27.0 mg/dL Critically high 7.0-18.0 [facility] Comment on above: Performed By: #### H STROPN #### [facility] [address] [place] [address] Dr. Con Santana Urea nitrogen/Creatinine [Mass ratio] 23.7 mg/mg Normal [facility] Comment on above: Performed By: #### H STROPN #### [facility] [address] [place] [address] Dr. Con Santana XR CHEST 2 Von [...] ELEAZAR GUERRA Date: 2022-12-31 11:27 Normal [facility] BNPon 12-30-2022 Natriuretic peptide B (Bld) [Mass/Vol] 7840.0 pg/mL Critically high <=1,800.0 [facility] Comment on above: Performed By: #### I NFLUAB #### [facility] [address] [place] [address] Dr. Con Santana CBC AUTO DIFFon 12-30-2022 BASO # 0.0 103/ul Normal 0.0-0.1 [facility] Comment on above: Performed By: #### P OCGLUC #### [facility] [address] [place] [address] Dr. Con Santana Basophils/100 WBC (Bld) 0.2 % Normal 0.2-2.0 [facility] Comment on above: Performed By: #### P OCGLUC #### [facility] [address] [place] [address] Dr. Con Santana EO # 0.0 103/ul Normal 0.0-0.7 [facility] Comment on above: Performed By: #### P OCGLUC #### [facility] [address] [place] [address] Dr. Con Santana Eosinophils/100 WBC (Bld) 0.0 % Critically low 0.9-7.0 [facility] Comment on above: Performed By: #### P OCGLUC #### [facility] [address] [place] [address] Dr. Con Santana Erythrocyte distribution width (RBC) [Ratio] 13.6 % Normal 11.0-15.0 [facility] Comment on above: Performed By: #### P OCGLUC #### [facility] [address] [place] [address] Dr. Con Santana Hematocrit (Bld) [Volume fraction] 28.5 % Critically low 36.0-48.0 [facility] Comment on above: Performed By: #### P OCGLUC #### [facility] [address] [place] [address] Dr. Con Santana Hemoglobin (Bld) [Mass/Vol] 9.5 g/dL Critically low 12.0-16.0 [facility] Comment on above: Performed By: #### P OCGLUC #### [facility] [address] [place] [address] Dr. Con Santana IG # 0.09 10e3/ul Critically high 0.00-0.03 [facility] Comment on above: Performed By: #### P OCGLUC #### [facility] [address] [place] [address] Dr. Con Santana IG % 0.8 % Critically high 0.0-0.5 [facility] Comment on above: Performed By: #### P OCGLUC #### [facility] [address] [place] [address] Dr. Con Santana LYMPH # 0.8 103/ul Critically low 1.2-3.8 [facility] Comment on above: Performed By: #### P OCGLUC #### [facility] [address] [place] [address] Dr. Con Santana Lymphocytes/100 WBC (Bld) 6.9 % Critically low 20.5-60.0 [facility] Comment on above: Performed By: #### P OCGLUC #### [facility] [address] [place], [place] [id number] Dr. Con Santana MANUAL DIFF REQ NO Normal [facility] Comment on above: Performed By: #### P OCGLUC #### [facility] [address] [place] [address] Dr. Con Santana MCH (RBC) [Entitic mass] 31.3 pg Normal 26.7-34.0 [facility] Comment on above: Performed By: #### P OCGLUC #### [facility] [address] [place] [address] Dr. Con Santana MCHC (RBC) [Mass/Vol] 33.3 g/dL Normal 29.9-35.2 [facility] Comment on above: Performed By: #### P OCGLUC #### [facility] [address] [place] [address] Dr. Con Santana MCV (RBC) [Entitic vol] 93.8 fL Normal 81.0-99.0 [facility] Comment on above: Performed By: #### P OCGLUC #### [facility] [address] [place] [address] Dr. Con Santana MONO # 0.4 103/ul Normal 0.3-0.8 [facility] Comment on above: Performed By: #### P OCGLUC #### [facility] [address] [place] [address] Dr. Cno Santana Monocytes/100 WBC (Bld) 3.1 % Normal 1.7-12.0 [facility] Comment on above: Performed By: #### P OCGLUC #### [facility] [address] [place] [address] Dr. Con Santana NEUT # 10.4 103/ul Critically high 1.4-6.5 [facility] Comment on above: Performed By: #### P OCGLUC #### [facility] [address] [place] [address] Dr. Con Santana Neutrophils/100 WBC (Bld) 89.0 % Critically high 43.0-75.0 [facility] Comment on above: Performed By: #### P OCGLUC #### [facility] [address] [place] [address] Dr. Con Santana Platelet mean volume (Bld) [Entitic vol] 10.8 fL Normal 9.5-13.5 [facility] Comment on above: Performed By: #### P OCGLUC #### [facility] [address] [address] [address] Con Santana PLT 189 103/ul Normal 150-450 [facility] Comment on above: Performed By: #### P OCGLUC #### [facility] [address] [address] [address] Con Santana RBC 3.04 106/ul Critically low 4.20-5.40 [facility] Comment on above: Performed By: #### P OCGLUC #### [facility] [address] [address] [address] Con Santana WBC 11.7 103/ul Critically high 4.0-11.0 [facility] Comment on above: Performed By: #### P OCGLUC #### [facility] [address] [address] [address] Con Santana POINT OF CARE GLUCOSEon 04-0 Glucose [Mass/Vol] 194 mg/dL Critically high 74-106 [facility] Comment on above: Performed By: #### C BC #### [facility] [address] [address] [address] Con Santana Glucose [Mass/Vol] 191 mg/dL Critically high 74-106 [facility] Comment on above: Performed By: #### I NFLUAB #### [facility] [address] [place] [address] Dr. Con Santana Glucose [Mass/Vol] 169 mg/dL Critically high 74-106 [facility] Comment on above: Performed By: #### P OCGLUC #### [facility] [address] [address] [address] Con Santana Glucose [Mass/Vol] 173 mg/dL Critically high 74-106 [facility] Comment on above: Performed By: #### I NFLUAB #### [facility] [address] [address] [address] Con Santana PROF CHEM 8 (BAS METB)on Anion gap [Moles/Vol] 18.8 mmol/L Normal [facility] Comment on above: Performed By: #### I NFLUAB #### [facility] [address] [place] [address] Dr. Con Santana Calcium [Mass/Vol] 7.3 mg/dL Critically low 8.5-10.1 [facility] Comment on above: Performed By: #### I NFLUAB #### [facility] [address] [address] [address] Con Santana Chloride [Moles/Vol] 109 mmol/L Critically high 98-107 [facility] Comment on above: Performed By: #### I NFLUAB #### [facility] [address] [place] [address] Dr. Con Santana CO2 [Moles/Vol] 17.3 mmol/L Critically low 21.0-32.0 [facility] Comment on above: Performed By: #### I NFLUAB #### [facility] [address] [place] [address] Dr. Con Santana Creatinine [Mass/Vol] 1.28 mg/dL Critically high 0.55-1.02 [facility] Comment on above: Performed By: #### I NFLUAB #### [facility] [address] [place] [address] Dr. Con Santana EGFR-AF POLISH 48 mL/min/1.73m2 Critically low >=60 [facility] Comment on above: Performed By: #### I NFLUAB #### [facility] [address] [address] [address] Con Santana EGFR-NON AF POLISH 40 mL/min/1.73m2 Critically low >=60 [facility] Comment on above: Performed By: #### I NFLUAB #### [facility] [address] [place] [address] Dr. Con Santana Glucose [Mass/Vol] 161 mg/dL Critically high 74-106 [facility] Comment on above: Performed By: #### I NFLUAB #### [facility] [address] [address] [address] Con Santana Potassium [Moles/Vol] 3.1 mmol/L Critically low 3.5-5.1 [facility] Comment on above: Performed By: #### I NFLUAB #### [facility] [address] [address] [address] Con Santana Sodium [Moles/Vol] 142 mmol/L Normal 136-145 [facility] Comment on above: Performed By: #### I NFLUAB #### [facility] [address] [place] [address] Dr. Con Santana Urea nitrogen [Mass/Vol] 24.0 mg/dL Critically high 7.0-18.0 [facility] Comment on above: Performed By: #### I NFLUAB #### [facility] [address] [place] [address] Dr. Con Santana Urea nitrogen/Creatinine [Mass ratio] 18.8 mg/mg Normal [facility] Comment on above: Performed By: #### I NFLUAB #### [facility] [address] [place] [address] Dr. Con Santana UA RANDOM W/MICROSCOPICon BACTERIA NONE SEEN Normal NONE SEEN [facility] Comment on above: Performed By: #### P OCGLUC #### [facility] [address] [place] [address] Dr. Con Santana Bilirubin Ql (U) Negative Normal NEGATIVE [facility] Comment on above: Performed By: #### P OCGLUC #### [facility] [address] [place] [address] Dr. Con Santana CAST NONE SEEN Normal NONE SEEN [facility] Comment on above: Performed By: #### P OCGLUC #### [facility] [address] [place] [address] Dr. Con Santana Clarity (U) CLEAR Normal CLEAR [facility] Comment on above: Performed By: #### P OCGLUC #### [facility] [address] [place] [address] Dr. Con Santana Color (U) LT. YELLOW Normal YELLOW [facility] Comment on above: Performed By: #### P OCGLUC #### [facility] [address] [address] [address] Con Santana Crystals LM Nom (Urine sed) NONE SEEN Normal NONE SEEN [facility] Comment on above: Performed By: #### P OCGLUC #### [facility] [address] [address] [address] Con Santana Epithelial cells LM Ql (Urine sed) FEW Abnormal NONE SEEN /RARE [facility] Comment on above: Performed By: #### P OCGLUC #### [facility] [address] [address] [address] Con Santana Glucose Ql (U) Negative Normal NEGATIVE [facility] Comment on above: Performed By: #### P OCGLUC #### [facility] [address] [place] [address] Dr. Con Santana Hemoglobin Ql (U) Negative Normal NEGATIVE [facility] Comment on above: Performed By: #### P OCGLUC #### [facility] [address] [address] [address] Con Santana Ketones Ql (U) Negative Normal NEGATIVE [facility] Comment on above: Performed By: #### P OCGLUC #### [facility] [address] [address] [address] Con Santana LEUKOCYTES TRACE Abnormal NEGATIVE [facility] Comment on above: Performed By: #### P OCGLUC #### [facility] [address] [address] [address] Con Santana MUCOUS NONE SEEN Normal NONE SEEN [facility] Comment on above: Performed By: #### P OCGLUC #### [facility] [address] [address] [address] Con Santana Nitrite Ql (U) Negative Normal NEGATIVE [facility] Comment on above: Performed By: #### P OCGLUC #### [facility] Laboratory [address] [place] [address] Dr. Con Santana pH (U) 5.5 [pH] Normal 5-9 [facility] Comment on above: Performed By: #### P OCGLUC #### [facility] [address] [address] [address] Con Santana RBC 0-2 Normal 0-2 [facility] Comment on above: Performed By: #### P OCGLUC #### [facility] [address] [address] [address] Con Santana SPEC GRAVITY 1.010 Normal 1.005-<=1.025 [facility] Comment on above: Performed By: #### P OCGLUC #### [facility] [address] [address] [address] Con Santana UA PROTEIN Negative Normal NEGATIVE/ TRACE [facility] Comment on above: Performed By: #### P OCGLUC #### [facility] [address] [place] [address] Dr. Con Santana Urobilinogen Qn (U) 0.2 {Godfrey'U}/dL Normal 0.2 - 1. 0 [facility] Comment on above: Performed By: #### P OCGLUC #### [facility] [address] [address] [address] Con Santana WBC 2-5 Abnormal NONE SEEN [facility] Comment on above: Performed By: #### P OCGLUC #### [facility] [address] [place] [address] Dr. Con Santana XR CHEST 2 Von [...] ELEAZAR GUERRA Date: 2022-12-30 11:35 Normal [facility] BNPon 12-29-2022 Natriuretic peptide B (Bld) [Mass/Vol] 4120.0 pg/mL Critically high <=1,800.0 [facility] Comment on above: Performed By: #### E LISA JAVIER #### [facility] [address] [place] [address] Dr. Con Santana Natriuretic peptide B (Bld) [Mass/Vol] 3274.0 pg/mL Critically high <=1,800.0 [facility] Comment on above: Performed By: #### P OCGLUC #### [facility] [address] [place] [address] Dr. Con Santana CBC AUTO DIFFon 12-29-2022 BASO # 0.0 103/ul Normal 0.0-0.1 [facility] Comment on above: Performed By: #### C BC #### [facility] [address] [place] [address] Dr. Con Santana Basophils/100 WBC (Bld) 0.0 % Critically low 0.2-2.0 [facility] Comment on above: Performed By: #### C BC #### [facility] [address] [place] [address] Dr. Con Santana EO # 0.0 103/ul Normal 0.0-0.7 [facility] Comment on above: Performed By: #### C BC #### [facility] [address] [place] [address] Dr. Con Santana Eosinophils/100 WBC (Bld) 0.2 % Critically low 0.9-7.0 [facility] Comment on above: Performed By: #### C BC #### [facility] [address] [place] [address] Dr. Con Santana Erythrocyte distribution width (RBC) [Ratio] 13.6 % Normal 11.0-15.0 [facility] Comment on above: Performed By: #### C BC #### [facility] [address] [place] [address] Dr. Con Santana Hematocrit (Bld) [Volume fraction] 29.8 % Critically low 36.0-48.0 [facility] Comment on above: Performed By: #### C BC #### [facility] [address] [address] [address] Con Santana Hemoglobin (Bld) [Mass/Vol] 9.5 g/dL Critically low 12.0-16.0 [facility] Comment on above: Performed By: #### C BC #### [facility] [address] [address] [address] Con Santana IG # 0.05 10e3/ul Critically high 0.00-0.03 [facility] Comment on above: Performed By: #### C BC #### [facility] [address] [address] [address] Con Santana IG % 0.9 % Critically high 0.0-0.5 [facility] Comment on above: Performed By: #### C BC #### [facility] [address] [address] [address] Con Santana LYMPH # 0.7 103/ul Critically low 1.2-3.8 [facility] Comment on above: Performed By: #### C BC #### [facility] [address] [address] [address] Con Santana Lymphocytes/100 WBC (Bld) 13.0 % Critically low 20.5-60.0 [facility] Comment on above: Performed By: #### C BC #### [facility] [address] [place] [address] Dr. Con Santana MANUAL DIFF REQ NO Normal [facility] Comment on above: Performed By: #### C BC #### [facility] [address] [address] [address] Con Santana MCH (RBC) [Entitic mass] 30.5 pg Normal 26.7-34.0 [facility] Comment on above: Performed By: #### C BC #### [facility] [address] [place] [address] Dr. Con Santana MCHC (RBC) [Mass/Vol] 31.9 g/dL Normal 29.9-35.2 [facility] Comment on above: Performed By: #### C BC #### [facility] [address] [address] [address] Con Santana MCV (RBC) [Entitic vol] 95.8 fL Normal 81.0-99.0 [facility] Comment on above: Performed By: #### C BC #### [facility] [address] [address] [address] Con Santana MONO # 0.1 103/ul Critically low 0.3-0.8 [facility] Comment on above: Performed By: #### C BC #### [facility] [address] [address] [address] oCn Santana Monocytes/100 WBC (Bld) 1.5 % Critically low 1.7-12.0 [facility] Comment on above: Performed By: #### C BC #### [facility] [address] [address] [address] Con Santana NEUT # 4.5 103/ul Normal 1.4-6.5 [facility] Comment on above: Performed By: #### C BC #### [facility] [address] [address] [address] Con Santana Neutrophils/100 WBC (Bld) 84.4 % Critically high 43.0-75.0 [facility] Comment on above: Performed By: #### C BC #### [facility] [address] [address] [address] Con Santana Platelet mean volume (Bld) [Entitic vol] 10.3 fL Normal 9.5-13.5 [facility] Comment on above: Performed By: #### C BC #### [facility] [address] [address] [address] Con Santana PLT 178 103/ul Normal 150-450 [facility] Comment on above: Performed By: #### C BC #### [facility] [address] [address] [address] Con Santana RBC 3.11 106/ul Critically low 4.20-5.40 [facility] Comment on above: Performed By: #### C BC #### [facility] [address] [address] [address] Con Santana WBC 5.3 103/ul Normal 4.0-11.0 [facility] Comment on above: Performed By: #### C BC #### [facility] [address] [address] [address] Con Santana BASO # 0.0 103/ul Normal 0.0-0.1 [facility] Comment on above: Performed By: #### C BC #### [facility] [address] [place] [address] Dr. Con Santana Basophils/100 WBC (Bld) 0.1 % Critically low 0.2-2.0 [facility] Comment on above: Performed By: #### C BC #### [facility] [address] [place] [address] Dr. Con Santana EO # 0.4 103/ul Normal 0.0-0.7 [facility] Comment on above: Performed By: #### C BC #### [facility] [address] [place] [address] Dr. Con Santana Eosinophils/100 WBC (Bld) 5.9 % Normal 0.9-7.0 [facility] Comment on above: Performed By: #### C BC #### [facility] [address] [place] [address] Dr. Con Santana Erythrocyte distribution width (RBC) [Ratio] 13.5 % Normal 11.0-15.0 [facility] Comment on above: Performed By: #### C BC #### [facility] [address] [place] [address] Dr. Con Santana Hematocrit (Bld) [Volume fraction] 29.4 % Critically low 36.0-48.0 [facility] Comment on above: Performed By: #### C BC #### [facility] [address] [place] [address] Dr. Con Santana Hemoglobin (Bld) [Mass/Vol] 9.5 g/dL Critically low 12.0-16.0 [facility] Comment on above: Performed By: #### C BC #### [facility] [address] [address] [address] Con Santana IG # 0.04 10e3/ul Critically high 0.00-0.03 [facility] Comment on above: Performed By: #### C BC #### [facility] [address] [place] [address] Dr. Con Santana IG % 0.6 % Critically high 0.0-0.5 [facility] Comment on above: Performed By: #### C BC #### [facility] [address] [place] [address] Dr. Con Santana LYMPH # 1.1 103/ul Critically low 1.2-3.8 [facility] Comment on above: Performed By: #### C BC #### [facility] [address] [place] [address] Dr. Con Santana Lymphocytes/100 WBC (Bld) 15.7 % Critically low 20.5-60.0 [facility] Comment on above: Performed By: #### C BC #### [facility] [address] [place] [address] Dr. oCn Santana MANUAL DIFF REQ NO Normal [facility] Comment on above: Performed By: #### C BC #### [facility] [address] [place] [address] Dr. Con Santana MCH (RBC) [Entitic mass] 31.3 pg Normal 26.7-34.0 [facility] Comment on above: Performed By: #### C BC #### [facility] [address] [place] [address] Dr. Con Santana MCHC (RBC) [Mass/Vol] 32.3 g/dL Normal 29.9-35.2 [facility] Comment on above: Performed By: #### C BC #### [facility] [address] [place] [address] Dr. Con Santana MCV (RBC) [Entitic vol] 96.7 fL Normal 81.0-99.0 [facility] Comment on above: Performed By: #### C BC #### [facility] [address] [place] [address] Dr. Con Santana MONO # 0.4 103/ul Normal 0.3-0.8 [facility] Comment on above: Performed By: #### C BC #### [facility] [address] [place] [address] Dr. Con Santana Monocytes/100 WBC (Bld) 5.9 % Normal 1.7-12.0 [facility] Comment on above: Performed By: #### C BC #### [facility] [address] [place] [address] Dr. Con Santana NEUT # 5.0 103/ul Normal 1.4-6.5 [facility] Comment on above: Performed By: #### C BC #### [facility] [address] [place] [address] Dr. Con Santana Neutrophils/100 WBC (Bld) 71.8 % Normal 43.0-75.0 [facility] Comment on above: Performed By: #### C BC #### [facility] [address] [place] [address] Dr. Con Santana Platelet mean volume (Bld) [Entitic vol] 10.0 fL Normal 9.5-13.5 [facility] Comment on above: Performed By: #### C BC #### [facility] [address] [place] [address] Dr. Con Santana PLT 173 103/ul Normal 150-450 [facility] Comment on above: Performed By: #### C BC #### [facility] [address] [place] [address] Dr. Con Santana RBC 3.04 106/ul Critically low 4.20-5.40 [facility] Comment on above: Performed By: #### C BC #### [facility] [address] [place] [address] Dr. Con Santana WBC 7.0 103/ul Normal 4.0-11.0 [facility] Comment on above: Performed By: #### C BC #### [facility] [address] [place] [address] Dr. Con Santana ECHOCARDIO M/2D COMPLETEon 0 12-29-2022 ECHOCARDIO M/2D COMPLETE Patient: SALOME DOMINGUEZ Exam Date: 12/29/2022 : 1940 Gender:F Ordering : SIVA CROSS Admission #: [id number] Family : DR MATHIASLAS MANUEL . Order #: [id number] CLICK HERE TO VIEW EXAM ECHOCARDIOGRAM REPORT [...] Varma M.D. on 01/01/2023 at 09:24 Normal [facility] LACTATE/LACTIC ACIDon 2022 Lactate [Moles/Vol] 0.6 mmol/L Normal 0.4-2.0 [facility] Comment on above: Performed By: #### C BC #### [facility] [address] [place] [address] Dr. Con Santana PH VENOUS BLOODon 12-29-2022 PCO2 VENOUS 34.6 mmHg Critically low 40.0-52.0 [facility] Comment on above: Performed By: #### C BC #### [facility] [address] [address] [address] Con Santana pH VENOUS 7.343 Normal 7.330-7.430 [facility] Comment on above: Performed By: #### C BC #### [facility] [address] [place] [address] Dr. Con Santana POINT OF CARE GLUCOSEon Glucose [Mass/Vol] 217 mg/dL Critically high -106 [facility] Comment on above: Performed By: #### C BC #### [facility] [address] [address] [address] Con Santana Glucose [Mass/Vol] 199 mg/dL Critically high -106 [facility] Comment on above: Performed By: #### C BC #### [facility] [address] [address] [address] Con Santana Glucose [Mass/Vol] 202 mg/dL Critically high -106 [facility] Comment on above: Performed By: #### P OCGLUC #### [facility] [address] [address] [address] Con Santana PROF 14(COMP METB)on 023 Albumin [Mass/Vol] 2.6 g/dL Critically low 3.4-5.0 [facility] Comment on above: Performed By: #### P OCGLUC #### [facility] [address] [place] [address] Dr. Con Santana Albumin/Globulin [Mass ratio] 1.1 {ratio} Normal [facility] Comment on above: Performed By: #### P OCGLUC #### [facility] [address] [address] [address] Con Santana ALP [Catalytic activity/Vol] 67 U/L Normal 46-116 [facility] Comment on above: Performed By: #### P OCGLUC #### [facility] [address] [address] [address] Con Santana ALT [Catalytic activity/Vol] 69 U/L Critically high 14-59 [facility] Comment on above: Performed By: #### P OCGLUC #### [facility] [address] [address] [address] Con Santana Anion gap [Moles/Vol] 15.0 mmol/L Normal [facility] Comment on above: Performed By: #### P OCGLUC #### [facility] [address] [address] [address] oCn Santana AST [Catalytic activity/Vol] 24 U/L Normal 15-37 [facility] Comment on above: Performed By: #### P OCGLUC #### [facility] [address] [address] [address] Con Santana Bilirubin [Mass/Vol] 0.3 mg/dL Normal 0.2-1.0 [facility] Comment on above: Performed By: #### P OCGLUC #### [facility] [address] [address] [address] Con Santana Calcium [Mass/Vol] 7.4 mg/dL Critically low 8.5-10.1 [facility] Comment on above: Performed By: #### P OCGLUC #### [facility] [address] [address] [address] Con Santana Chloride [Moles/Vol] 110 mmol/L Critically high 98-107 [facility] Comment on above: Performed By: #### P OCGLUC #### [facility] [address] [address] [address] Con Santana CO2 [Moles/Vol] 21.1 mmol/L Normal 21.0-32.0 [facility] Comment on above: Performed By: #### P OCGLUC #### [facility] [address] [address] [address] Con Santana Creatinine [Mass/Vol] 0.79 mg/dL Normal 0.55-1.02 [facility] Comment on above: Performed By: #### P OCGLUC #### [facility] [address] [address] [address] Con Santana EGFR-AF POLISH >60 Normal >=60 [facility] Comment on above: Performed By: #### P OCGLUC #### [facility] [address] [address] [address] Con Santana EGFR-NON AF POLISH >60 Normal >=60 [facility] Comment on above: Performed By: #### P OCGLUC #### [facility] [address] [address] [address] Con Santana Globulin (S) [Mass/Vol] 2.3 g/dL Normal [facility] Comment on above: Performed By: #### P OCGLUC #### [facility] [address] [address] [address] Con Santana Glucose [Mass/Vol] 115 mg/dL Critically high 74-106 [facility] Comment on above: Performed By: #### P OCGLUC #### [facility] [address] [address] [address] Con Santana Potassium [Moles/Vol] 4.1 mmol/L Normal 3.5-5.1 [facility] Comment on above: Performed By: #### P OCGLUC #### [facility] [address] [address] [address] Con Santana Protein [Mass/Vol] 4.9 g/dL Critically low 6.4-8.2 [facility] Comment on above: Performed By: #### P OCGLUC #### [facility] [address] [address] [address] Con Santana Sodium [Moles/Vol] 142 mmol/L Normal 136-145 [facility] Comment on above: Performed By: #### P OCGLUC #### [facility] [address] [place] [address] Dr. Con Santana Urea nitrogen [Mass/Vol] 19.0 mg/dL Critically high 7.0-18.0 [facility] Comment on above: Performed By: #### P OCGLUC #### [facility] [address] [place] [address] Dr. Con Santana Urea nitrogen/Creatinine [Mass ratio] 24.1 mg/mg Normal [facility] Comment on above: Performed By: #### P OCGLUC #### [facility] [address] [place] [address] Dr. Con Santana PROF CHEM 8 (BAS METB)on Anion gap [Moles/Vol] 13.5 mmol/L Normal [facility] Comment on above: Performed By: #### TIM INTERIANORO #### [facility] [address] [place] [address] Dr. Con Santana Calcium [Mass/Vol] 7.6 mg/dL Critically low 8.5-10.1 [facility] Comment on above: Performed By: #### TIM INTERIANORO #### [facility] [address] [place] [address] Dr. Con Santana Chloride [Moles/Vol] 110 mmol/L Critically high 98-107 [facility] Comment on above: Performed By: #### Anaya JAVIER UMICRO #### [facility] [address] [place] [address] Dr. Con Santana CO2 [Moles/Vol] 18.7 mmol/L Critically low 21.0-32.0 [facility] Comment on above: Performed By: #### TIM INTERIANORO #### [facility] [address] [place] [address] Dr. Con Santana Creatinine [Mass/Vol] 0.79 mg/dL Normal 0.55-1.02 [facility] Comment on above: Performed By: #### Anaya JAVIER UMICRO #### [facility] [address] [place] [address] Dr. Con Santana EGFR-AF POLISH >60 Normal >=60 [facility] Comment on above: Performed By: #### LISA INTERIANO #### [facility] [address] [place] [address] Dr. Con Santana EGFR-NON AF POLISH >60 Normal >=60 [facility] Comment on above: Performed By: #### LISA INTERIANO #### [facility] [address] [place] [address] Dr. Con Santana Glucose [Mass/Vol] 155 mg/dL Critically high 74-106 [facility] Comment on above: Performed By: #### LISA INTERIANO #### [facility] [address] [place] [address] Dr. Con Santana Potassium [Moles/Vol] 4.2 mmol/L Normal 3.5-5.1 [facility] Comment on above: Performed By: #### LISA INTERIANO #### [facility] [address] [place] [address] Dr. Con Santana Sodium [Moles/Vol] 138 mmol/L Normal 136-145 [facility] Comment on above: Performed By: #### LISA INTERIANO #### [facility] [address] [place] [address] Dr. Con Santana Urea nitrogen [Mass/Vol] 21.0 mg/dL Critically high 7.0-18.0 [facility] Comment on above: Performed By: #### LISA INTERIANO #### [facility] [address] [place] [address] Dr. Con Santana Urea nitrogen/Creatinine [Mass ratio] 26.6 mg/mg Normal [facility] Comment on above: Performed By: #### TIM INTERIANORO #### [facility] [address] [place] [address] Dr. Con Santana PROTIMEon 12-29-2022 INR Coag (PPP) [Relative time] 1.00 {INR} Normal [facility] Comment on above: Performed By: #### P OCGLUC #### [facility] [address] [place] [address] Dr. Con Santana INR GUIDELINES SEE BELOW Normal [facility] Comment on above: Result Comment: CANDELARIA RED INR: 2.0 - 3.0 CONDITIONS NOT LISTED BELOW 2.5 - 3.5 FOR PROSTHETIC HEART VALVE REPLACEMENT 2.5 - 3.5 RECURRENT THROMBOSIS Performed By: #### P OCGLUC #### [facility] [address] [place] [address] Dr. Con Santana PT Coag (PPP) [Time] 10.6 s Normal 9.0-11.6 [facility] Comment on above: Performed By: #### P OCGLUC #### [facility] [address] [place] [address] Dr. Con Santana PTTon 12-29-2022 aPTT Coag (Bld) [Time] 28.2 s Normal 22.3-36.2 [facility] Comment on above: Performed By: #### I NFLUAB #### [facility] [address] [place] [address] Dr. Con Santana TROPONIN, HIGH SENSITIVITYon 12-29-2022 HSTROP 16.0 pg/mL Normal 4.0-51.3 [facility] Comment on above: Result Comment: CUT- OFF POINTS HAVE BEEN ESTABLISHED BASED ON THE FOURTH UNIVERSAL DEFINITIONS OF MYOCARDIAL INFARCTION. THE UPPER REFERENCE LIMIT (URL) OF TROPONIN, DEFINED THE 99TH PERCENTILE OF cTnI DISTRIBUTION IN A REFERENCE POPULATION, HAS BEEN CONFIRMED THE DECISION THRESHOLD FOR SD DIAGNOSIS. Performed By: #### H STROPN #### [facility] [address] [place] [address] Dr. Con Santana HSTROP 23.6 pg/mL Normal 4.0-51.3 [facility] Comment on above: Result Comment: CUT- OFF POINTS HAVE BEEN ESTABLISHED BASED ON THE FOURTH UNIVERSAL DEFINITIONS OF MYOCARDIAL INFARCTION. THE UPPER REFERENCE LIMIT (URL) OF TROPONIN, DEFINED THE 99TH PERCENTILE OF cTnI DISTRIBUTION IN A REFERENCE POPULATION, HAS BEEN CONFIRMED THE DECISION THRESHOLD FOR SD DIAGNOSIS. Performed By: #### P OCGLUC #### [facility] [address] [place] [address] Dr. Con Santana XR CHEST 1 Von [...] TRINI CISNEROS Date: 2022-12-28 22:49 Normal [facility]on SARS-CoV-2 (COVID-19) RNA JEANE+probe Ql (Unsp spec) Not detected Normal NOT DETECTED [facility] Comment on above: Result Comment: When [...] for this test is supported by the [place] of [employer] and [employer] Service's declaration that [...] used). Performed By: #### C VDTBH #### [facility] [address] [place] [address] Dr. Con Santana PH VENOUS BLOODon 12-28-2022 PCO2 VENOUS 40.4 mmHg Normal 40.0-52.0 [facility] Comment on above: Performed By: #### I NFLUAB #### [facility] [address] [place] [address] Dr. Con Santana pH VENOUS 7.297 Critically low 7.330-7.430 [facility] Comment on above: Performed By: #### I NFLUAB #### [facility] [address] [place] [address] Dr. Con Santana CBC W MANUAL DIFFon 12-23-19 23 ATYPICAL LYMPH # Normal [facility] Comment on above: Performed By: #### C BC #### [facility] [address] [place] [address] Dr. Con Santana ATYPICAL LYMPH % Normal [facility] Comment on above: Performed By: #### C BC #### [facility] [address] [place] [address] Dr. Con Santana BAND # 0.0 103/ul Normal 0.0-0.3 [facility] Comment on above: Performed By: #### C BC #### [facility] [address] [place] [address] Dr. Con Santana BAND % 0 % Normal 0-5 [facility] Comment on above: Performed By: #### C BC #### [facility] [address] [place] [address] Dr. Con Santana BASOM # 0.00 103/ul Normal 0.00-0.10 [facility] Comment on above: Performed By: #### C BC #### [facility] [address] [place] [address] Dr. Con Santana BASOM % 0.0 % Critically low 0.2-2.0 [facility] Comment on above: Performed By: #### C BC #### [facility] [address] [place] [address] Dr. Con Santana BLAST # Normal [facility] Comment on above: Performed By: #### C BC #### [facility] [address] [place] [address] Dr. Con Santana BLAST % Normal [facility] Comment on above: Performed By: #### C BC #### [facility] [address] [place] [address] Dr. Con Santana CORRECTED WBC Normal 4.0-11.0 [facility] Comment on above: Performed By: #### C BC #### [facility] [address] [address] [address] Con Santana EOS # 0.00 103/ul Normal 0.00-0.70 [facility] Comment on above: Performed By: #### C BC #### [facility] [address] [address] [address] Con Santana EOS% 0.0 % Critically low 0.9-7.0 [facility] Comment on above: Performed By: #### C BC #### [facility] [address] [address] [address] Con Santana HCT 31.2 % Critically low 36.0-48.0 [facility] Comment on above: Performed By: #### C BC #### [facility] [address] [address] [address] Con Santana HGB 10.2 g/dl Critically low 12.0-16.0 [facility] Comment on above: Performed By: #### C BC #### [facility] [address] [address] [address] Con Santana LYMPHM # 0.32 103/ul Critically low 1.20-3.80 [facility] Comment on above: Performed By: #### C BC #### [facility] [address] [address] [address] Con Santana LYMPHM% 3.0 % Critically low 20.5-60.0 [facility] Comment on above: Performed By: #### C BC #### [facility] [address] [address] [address] Con Santana MCH 30.7 pg Normal 26.7-34.0 [facility] Comment on above: Performed By: #### C BC #### [facility] [address] [address] [address] Con Santana MCHC 32.7 g/dl Normal 29.9-35.2 [facility] Comment on above: Performed By: #### C BC #### [facility] [address] [place] [address] Dr. Con Santana MCV 94.0 fL Normal 81.0-99.0 [facility] Comment on above: Performed By: #### C BC #### [facility] [address] [place] [address] Dr. Con Santana METAMYELOCYTE # Normal [facility] Comment on above: Performed By: #### C BC #### [facility] [address] [place] [address] Dr. Con Santana METAMYELOCYTE % Normal [facility] Comment on above: Performed By: #### C BC #### [facility] [address] [place] [address] Dr. Con Santana MONOM# 0.11 103/ul Critically low 0.30-0.80 [facility] Comment on above: Performed By: #### C BC #### [facility] [address] [place] [address] Dr. Con Santana MONOM% 1.0 % Critically low 1.7-12.0 [facility] Comment on above: Performed By: #### C BC #### [facility] [address] [place] [address] Dr. Con Santana MPV 10.6 fL Normal 9.5-13.5 [facility] Comment on above: Performed By: #### C BC #### [facility] [address] [place] [address] Dr. Con Santana MYELOCYTE # Normal [facility] Comment on above: Performed By: #### C BC #### [facility] [address] [place] [address] Dr. Con Santana MYELOCYTE % Normal [facility] Comment on above: Performed By: #### C BC #### [facility] [address] [place] [address] Dr. Con Santana NRBC Normal [facility] Comment on above: Performed By: #### C BC #### [facility] [address] [place] [address] Dr. Con Santana PLT 242 103/ul Normal 150-450 [facility] Comment on above: Performed By: #### C BC #### [facility] [address] [address] [address] Con Santana RBC 3.32 106/ul Critically low 4.20-5.40 [facility] Comment on above: Performed By: #### C BC #### [facility] [address] [address] [address] Con Santana RDW 13.2 % Normal 11.0-15.0 [facility] Comment on above: Performed By: #### C BC #### [facility] [address] [address] [address] Con Santana SEG # 10.18 103/ul Critically high 1.40-6.50 [facility] Comment on above: Performed By: #### C BC #### [facility] [address] [address] [address] Con Santana SEG % 96.0 % Critically high 43.0-75.0 [facility] Comment on above: Performed By: #### C BC #### [facility] [address] [address] [address] Con Santana WBC 10.6 103/ul Normal 4.0-11.0 [facility] Comment on above: Performed By: #### C BC #### [facility] [address] [address] [address] Con Santana POINT OF CARE GLUCOSEon 11-27 Glucose [Mass/Vol] 139 mg/dL Critically high 74-106 [facility] Comment on above: Performed By: #### I NFLUAB #### [facility] [address] [address] [address] Con Santana Glucose [Mass/Vol] 151 mg/dL Critically high -106 [facility] Comment on above: Performed By: #### I NFLUAB #### [facility] [address] [address] [address] Con Santana Glucose [Mass/Vol] 200 mg/dL Critically high -106 [facility] Comment on above: Performed By: #### P OCGLUC #### [facility] [address] [address] [address] Con Santana PROF CHEM 8 (BAS METB)on Anion gap [Moles/Vol] 17.1 mmol/L Normal [facility] Comment on above: Performed By: #### P OCGLUC #### [facility] [address] [address] [address] Con Santana Calcium [Mass/Vol] 7.7 mg/dL Critically low 8.5-10.1 [facility] Comment on above: Performed By: #### P OCGLUC #### [facility] [address] [address] [address] Con Santana Chloride [Moles/Vol] 111 mmol/L Critically high 98-107 [facility] Comment on above: Performed By: #### P OCGLUC #### [facility] [address] [place] [address] Dr. Con Santana CO2 [Moles/Vol] 17.1 mmol/L Critically low 21.0-32.0 [facility] Comment on above: Performed By: #### P OCGLUC #### [facility] [address] [place] [address] Dr. Con Santana Creatinine [Mass/Vol] 1.46 mg/dL Critically high 0.55-1.02 [facility] Comment on above: Performed By: #### P OCGLUC #### [facility] [address] [place] [address] Dr. Con Santana EGFR-AF POLISH 41 mL/min/1.73m2 Critically low >=60 [facility] Comment on above: Performed By: #### P OCGLUC #### [facility] [address] [place] [address] Dr. Con Santana EGFR-NON AF POLISH 34 mL/min/1.73m2 Critically low >=60 [facility] Comment on above: Performed By: #### P OCGLUC #### [facility] [address] [place] [address] Dr. Con Santana Glucose [Mass/Vol] 167 mg/dL Critically high 74-106 [facility] Comment on above: Performed By: #### P OCGLUC #### [facility] [address] [address] [address] Con Santana Potassium [Moles/Vol] 3.2 mmol/L Critically low 3.5-5.1 [facility] Comment on above: Performed By: #### P OCGLUC #### [facility] [address] [address] [address] Con Santana Sodium [Moles/Vol] 142 mmol/L Normal 136-145 [facility] Comment on above: Performed By: #### P OCGLUC #### [facility] [address] [address] [address] Con Santana Urea nitrogen [Mass/Vol] 40.0 mg/dL Critically high 7.0-18.0 [facility] Comment on above: Performed By: #### P OCGLUC #### [facility] [address] [place] [address] Dr. Con Santana Urea nitrogen/Creatinine [Mass ratio] 27.4 mg/mg Normal [facility] Comment on above: Performed By: #### P OCGLUC #### [facility] [address] [place] [address] Dr. Con Santana XR CHEST 1 Von [...] BRINA HENRY Date: 2022-12-22 07:32 Normal [facility] POINT OF CARE GLUCOSEon 11-27 Glucose [Mass/Vol] 195 mg/dL Critically high 74-106 [facility] Comment on above: Performed By: #### P OCGLUC #### [facility] [address] [place] [address] Dr. Con Santana Glucose [Mass/Vol] 174 mg/dL Critically high 74-106 [facility] Comment on above: Performed By: #### C BC #### [facility] [address] [address] [address] Con Santana Glucose [Mass/Vol] 148 mg/dL Critically high 74-106 [facility] Comment on above: Performed By: #### C BC #### [facility] [address] [place] [address] Dr. Con Santana BNPon 12-20-2022 Natriuretic peptide B (Bld) [Mass/Vol] 1276.0 pg/mL Normal <=1,800.0 [facility] Comment on above: Performed By: #### H STROPN #### [facility] [address] [place] [address] Dr. Con Santana CARDIAC MAXIMILIANO ADMITon 023 CK [Catalytic activity/Vol] 101 U/L Normal 26-192 [facility] Comment on above: Performed By: #### H STROPN #### [facility] [address] [place] [address] Dr. Con Santana CK.MB [Mass/Vol] 1.61 ng/mL Normal <=3.60 [facility] Comment on above: Performed By: #### H STROPN #### [facility] [address] [place] [address] Dr. Con Santana HSTROP 19.8 pg/mL Normal 4.0-51.3 [facility] Comment on above: Result Comment: CUT- OFF POINTS HAVE BEEN ESTABLISHED BASED ON THE FOURTH UNIVERSAL DEFINITIONS OF MYOCARDIAL INFARCTION. THE UPPER REFERENCE LIMIT (URL) OF TROPONIN, DEFINED THE 99TH PERCENTILE OF cTnI DISTRIBUTION IN A REFERENCE POPULATION, HAS BEEN CONFIRMED THE DECISION THRESHOLD FOR SD DIAGNOSIS. Performed By: #### H STROPN #### [facility] [address] [address] [address] Con Santana RAMONA 76 ng/mL Normal 9-82 [facility] Comment on above: Performed By: #### H STROPN #### [facility] [address] [address] [address] Con Santana CBC AUTO DIFFon 12-20-2022 BASO # 0.1 103/ul Normal 0.0-0.1 [facility] Comment on above: Performed By: #### P OCGLUC #### [facility] [address] [address] [address] Con Santana Basophils/100 WBC (Bld) 0.9 % Normal 0.2-2.0 [facility] Comment on above: Performed By: #### P OCGLUC #### [facility] [address] [place] [address] Dr. Con Santana EO # 0.8 103/ul Critically high 0.0-0.7 [facility] Comment on above: Performed By: #### P OCGLUC #### [facility] [address] [address] [address] Con Santana Eosinophils/100 WBC (Bld) 12.8 % Critically high 0.9-7.0 [facility] Comment on above: Performed By: #### P OCGLUC #### [facility] [address] [place] [address] Dr. Con Santana Erythrocyte distribution width (RBC) [Ratio] 13.0 % Normal 11.0-15.0 [facility] Comment on above: Performed By: #### P OCGLUC #### [facility] [address] [place] [address] Dr. Con Santana Hematocrit (Bld) [Volume fraction] 40.9 % Normal 36.0-48.0 [facility] Comment on above: Performed By: #### P OCGLUC #### [facility] [address] [place] [address] Dr. Con Santana Hemoglobin (Bld) [Mass/Vol] 13.3 g/dL Normal 12.0-16.0 [facility] Comment on above: Performed By: #### P OCGLUC #### [facility] [address] [address] [address] Con Santana IG # 0.01 10e3/ul Normal 0.00-0.03 [facility] Comment on above: Performed By: #### P OCGLUC #### [facility] [address] [address] [address] Con Santana IG % 0.2 % Normal 0.0-0.5 [facility] Comment on above: Performed By: #### P OCGLUC #### [facility] [address] [address] [address] Con Santana LYMPH # 3.3 103/ul Normal 1.2-3.8 [facility] Comment on above: Performed By: #### P OCGLUC #### [facility] [address] [place] [address] Dr. Cno Santana Lymphocytes/100 WBC (Bld) 51.5 % Normal 20.5-60.0 [facility] Comment on above: Performed By: #### P OCGLUC #### [facility] [address] [address] [address] Con Santana MANUAL DIFF REQ NO Normal [facility] Comment on above: Performed By: #### P OCGLUC #### [facility] [address] [place] [address] Dr. Con Santana MCH (RBC) [Entitic mass] 31.3 pg Normal 26.7-34.0 [facility] Comment on above: Performed By: #### P OCGLUC #### [facility] [address] [address] [address] Con Santana MCHC (RBC) [Mass/Vol] 32.5 g/dL Normal 29.9-35.2 [facility] Comment on above: Performed By: #### P OCGLUC #### [facility] [address] [place] [address] Dr. Con Santana MCV (RBC) [Entitic vol] 96.2 fL Normal 81.0-99.0 [facility] Comment on above: Performed By: #### P OCGLUC #### [facility] [address] [address] [address] Con Santana MONO # 0.5 103/ul Normal 0.3-0.8 [facility] Comment on above: Performed By: #### P OCGLUC #### [facility] [address] [address] [address] Con Santana Monocytes/100 WBC (Bld) 7.0 % Normal 1.7-12.0 [facility] Comment on above: Performed By: #### P OCGLUC #### [facility] [address] [place] [address] Dr. Con Santana NEUT # 1.8 103/ul Normal 1.4-6.5 [facility] Comment on above: Performed By: #### P OCGLUC #### [facility] [address] [place] [address] Dr. Con Santana Neutrophils/100 WBC (Bld) 27.6 % Critically low 43.0-75.0 [facility] Comment on above: Performed By: #### P OCGLUC #### [facility] [address] [place] [address] Dr. Cno Santana Platelet mean volume (Bld) [Entitic vol] 9.9 fL Normal 9.5-13.5 [facility] Comment on above: Performed By: #### P OCGLUC #### [facility] [address] [place] [address] Dr. Con Snatana PLT 286 103/ul Normal 150-450 [facility] Comment on above: Performed By: #### P OCGLUC #### [facility] [address] [place] [address] Dr. Con Santana RBC 4.25 106/ul Normal 4.20-5.40 [facility] Comment on above: Performed By: #### P OCGLUC #### [facility] [address] [place] [address] Dr. Con Santana WBC 6.5 103/ul Normal 4.0-11.0 [facility] Comment on above: Performed By: #### P OCGLUC #### [facility] [address] [place] [address] Dr. Con Santana CULTURE BLOODon 12-20-2022 Microscopic examination of blood, culture Culture Observations: NO GROWTH AT 5 DAYS. Normal [facility] Comment on above: Performed By: #### B LDCX2 #### [facility] [address] [place] [address] Dr. Con Santana Microscopic examination of blood, culture Culture Observations: NO GROWTH AT 5 DAYS. Normal [facility] Comment on above: Performed By: #### C BC #### [facility] [address] [address] [address] Con Santana CULTURE URINEon 12-20-2022 CULTURE URINE Culture Observations : LIGHT GROWTH OF MIXED GENITAL KAL[place]. NO POTENTIAL PATHOGENS SEEN. Normal [facility] Comment on above: Performed By: #### C BC #### [facility] [address] [place] [address] Dr. Con Santana Covid-19 PCR (CVDTB)on 11-27 SARS-CoV-2 (COVID-19) RNA JEANE+probe Ql (Unsp spec) Not detected Normal NOT DETECTED [facility] Comment on above: Result Comment: When [...] for this test is supported by the [place] of [employer] and [employer] Service's declaration that [...] used). Performed By: #### C BC #### [facility] [address] [place] [address] Dr. Con Santana ER URINE PROFILEon 03-25-202 3 Bilirubin Ql (U) Negative Normal NEGATIVE [facility] Comment on above: Performed By: #### Anaya JAVIER UMICRO #### [facility] [address] [place] [address] Dr. Con Santana Clarity (U) CLEAR Normal CLEAR [facility] Comment on above: Performed By: #### E YAYA, UMICRO #### [facility] [address] [place] [address] Dr. Con Santana Color (U) LT. YELLOW Normal YELLOW [facility] Comment on above: Performed By: #### E YAYA UMICRO #### [facility] [address] [place] [address] Dr. Con KNIGHT A micrscopic examination will be performed if indicated. Normal [facility] Comment on above: Performed By: #### E YAYA UMICRO #### [facility] [address] [place] [address] Dr. Con Santana Glucose Ql (U) Negative Normal NEGATIVE [facility] Comment on above: Performed By: #### Anaya JAVIER UMICRO #### [facility] [address] [place] [address] Dr. Con Santana Hemoglobin Ql (U) TRACE-INTACT Abnormal NEGATIVE [facility] Comment on above: Performed By: #### Anaya JAVIER UMICRO #### [facility] [address] [place] [address] Dr. Con Santana Ketones Ql (U) TRACE Abnormal NEGATIVE [facility] Comment on above: Performed By: #### Anaya JAVIER UMICRO #### [facility] [address] [place] [address] Dr. Con Santana LEUKOCYTES MODERATE Abnormal NEGATIVE [facility] Comment on above: Performed By: #### Anaya JAVIER UMICRO #### [facility] [address] [place] [address] Dr. Con Santana Nitrite Ql (U) Positive Abnormal NEGATIVE [facility] Comment on above: Performed By: #### Anaya JAVIER UMICRO #### [facility] [address] [place] [address] Dr. Con Santana pH (U) 7.0 [pH] Normal 5-9 [facility] Comment on above: Performed By: #### LISA INTERIANO #### [facility] [address] [place] [address] Dr. Con Santana SPEC GRAVITY 1.010 Normal 1.005-<=1.025 [facility] Comment on above: Performed By: #### LISA INTERIANO #### [facility] [address] [place] [address] Dr. Con Santana UA PROTEIN TRACE Normal NEGATIVE/ TRACE [facility] Comment on above: Performed By: #### LISA INTERIANO #### [facility] [address] [place] [address] Dr. Con Santana UR MICRO IND INDICATED Normal [facility] Comment on above: Performed By: #### LISA INTERIANO #### [facility] [address] [place] [address] Dr. Con Santana Urobilinogen Qn (U) 0.2 {Godfrey'U}/dL Normal 0.2 - 1. 0 [facility] Comment on above: Performed By: #### LISA INTERIANO #### [facility] [address] [place] [address] Dr. Con Santana INFLUENZA A AND B AGon 12-20 INFLUENZA A AG Negative Normal NEGATIVE SEE COMMENT [facility] Comment on above: Performed By: #### I NFLUAB #### [facility] [address] [place] [address] Dr. Con Santana INFLUENZA B AG Negative Normal NEGATIVE SEE COMMENT [facility] Comment on above: Performed By: #### I NFLUAB #### [facility] [address] [place] [address] Dr. Con Santana LACTATE/LACTIC ACIDon 2022 Lactate [Moles/Vol] 0.6 mmol/L Normal 0.4-2.0 [facility] Comment on above: Performed By: #### P OCGLUC #### [facility] [address] [address] [address] Con Santana POINT OF CARE GLUCOSEon 11-27 Glucose [Mass/Vol] 217 mg/dL Critically high -106 [facility] Comment on above: Performed By: #### I NFLUAB #### [facility] [address] [address] [address] Con Santana Glucose [Mass/Vol] 204 mg/dL Critically high 74-106 [facility] Comment on above: Performed By: #### P OCGLUC #### [facility] [address] [address] [address] Con Santana Glucose [Mass/Vol] 148 mg/dL Critically high -106 [facility] Comment on above: Performed By: #### C BC #### [facility] [address] [place] [address] Dr. Con Santana PROF 14(COMP METB)on 023 Albumin [Mass/Vol] 3.4 g/dL Normal 3.4-5.0 [facility] Comment on above: Performed By: #### H STROPN #### [facility] [address] [address] [address] Con Santana Albumin/Globulin [Mass ratio] 1.1 {ratio} [facility] Comment on above: Performed By: #### H STROPN #### [facility] [address] [place] [address] Dr. Con Santana ALP [Catalytic activity/Vol] 95 U/L Normal 46-116 [facility] Comment on above: Performed By: #### H STROPN #### [facility] [address] [place] [address] Dr. Con Santana ALT [Catalytic activity/Vol] 22 U/L Normal 14-59 [facility] Comment on above: Performed By: #### H STROPN #### [facility] [address] [place] [address] Dr. Con Santana Anion gap [Moles/Vol] 13.1 mmol/L Normal [facility] Comment on above: Performed By: #### H STROPN #### [facility] [address] [address] [address] Con Santana AST [Catalytic activity/Vol] U/L Critically low 15-37 [facility] Comment on above: Performed By: #### H STROPN #### [facility] [address] [address] [address] Con Santana Bilirubin [Mass/Vol] 0.4 mg/dL Normal 0.2-1.0 [facility] Comment on above: Performed By: #### H STROPN #### [facility] [address] [address] [address] Con Santana Calcium [Mass/Vol] 8.5 mg/dL Normal 8.5-10.1 [facility] Comment on above: Performed By: #### H STROPN #### [facility] [address] [address] [address] Con Santana Chloride [Moles/Vol] 107 mmol/L Normal 98-107 [facility] Comment on above: Performed By: #### H STROPN #### [facility] [address] [address] [address] Con Santana CO2 [Moles/Vol] 22.5 mmol/L Normal 21.0-32.0 [facility] Comment on above: Performed By: #### H STROPN #### [facility] [address] [address] [address] Con Santana Creatinine [Mass/Vol] 0.85 mg/dL Normal 0.55-1.02 [facility] Comment on above: Performed By: #### H STROPN #### [facility] [address] [address] [address] Con Santana EGFR-AF POLISH >60 Normal >=60 [facility] Comment on above: Performed By: #### H STROPN #### [facility] Laboratory [address] [address] [address] Con Santana EGFR-NON AF POLISH >60 Normal >=60 [facility] Comment on above: Performed By: #### H STROPN #### [facility] [address] [address] [address] Con Santana Globulin (S) [Mass/Vol] 3.2 g/dL Normal [facility] Comment on above: Performed By: #### H STROPN #### [facility] [address] [address] [address] Con Santana Glucose [Mass/Vol] 131 mg/dL Critically high 74-106 [facility] Comment on above: Performed By: #### H STROPN #### [facility] [address] [address] [address] Con Santana Potassium [Moles/Vol] 3.6 mmol/L Normal 3.5-5.1 [facility] Comment on above: Performed By: #### H STROPN #### [facility] [address] [place] [address] Dr. Con Santana Protein [Mass/Vol] 6.6 g/dL Normal 6.4-8.2 [facility] Comment on above: Performed By: #### H STROPN #### [facility] [address] [place] [address] Dr. Con Santana Sodium [Moles/Vol] 139 mmol/L Normal 136-145 [facility] Comment on above: Performed By: #### H STROPN #### [facility] [address] [place] [address] Dr. Con Santana Urea nitrogen [Mass/Vol] 15.0 mg/dL Normal 7.0-18.0 [facility] Comment on above: Performed By: #### H STROPN #### [facility] [address] [place] [address] Dr. Con Santana Urea nitrogen/Creatinine [Mass ratio] 17.6 mg/mg Normal [facility] Comment on above: Performed By: #### H STROPN #### [facility] [address] [place] [address] Dr. Con Santana PROTIMEon 12-20-2022 INR Coag (PPP) [Relative time] 1.08 {INR} Normal [facility] Comment on above: Performed By: #### H STROPN #### [facility] [address] [place] [address] Dr. Con Santana INR GUIDELINES SEE BELOW Normal [facility] Comment on above: Result Comment: CANDELARIA RED INR: 2.0 - 3.0 CONDITIONS NOT LISTED BELOW 2.5 - 3.5 FOR PROSTHETIC HEART VALVE REPLACEMENT 2.5 - 3.5 RECURRENT THROMBOSIS Performed By: #### H STROPN #### [facility] [address] [place] [address] Dr. Con Santana PT Coag (PPP) [Time] 11.4 s Normal 9.0-11.6 [facility] Comment on above: Performed By: #### H STROPN #### [facility] [address] [place] [address] Dr. Con Santana PTTon 12-20-2022 aPTT Coag (Bld) [Time] 30.8 s Normal 22.3-36.2 [facility] Comment on above: Performed By: #### H STROPN #### [facility] [address] [place] [address] Dr. Con Santana URINE MICROSCOPIC ONLYon BACTERIA MODERATE Abnormal NONE SEEN [facility] Comment on above: Performed By: #### Anaya JAVIER UMICRO #### [facility] [address] [place] [address] Dr. Con Santana Bacteria identified Cx Nom (U) INDICATED Normal [facility] Comment on above: Performed By: #### Anaya JAVIER, UMICRO #### [facility] [address] [place] [address] Dr. Con Santana CAST NONE SEEN Normal NONE SEEN [facility] Comment on above: Performed By: #### Anaya JAVIER, UMICRO #### [facility] [address] [place] [address] Dr. Con Santana Crystals LM Nom (Urine sed) NONE SEEN Normal NONE SEEN [facility] Comment on above: Performed By: #### E RUR, UMICRO #### [facility] [address] [place] [address] Dr. Con Santana Epithelial cells LM Ql (Urine sed) FEW Abnormal NONE SEEN /RARE [facility] Comment on above: Performed By: #### E RUR, UMICRO #### [facility] [address] [address] [address] Cno Santana MUCOUS NONE SEEN Normal NONE SEEN [facility] Comment on above: Performed By: #### E RUR, UMICRO #### [facility] [address] [address] [address] Con Santana RBC 2-5 Abnormal 0-2 [facility] Comment on above: Performed By: #### E RUR, UMICRO #### [facility] [address] [address] [address] Con Satnana WBC 20-50 Abnormal NONE SEEN [facility] Comment on above: Performed By: #### E TABR, UMICRO #### [facility] [address] [address] [address] Con Santana XR CHEST 1 Von [...] ELEAZAR GUERRA Date: 2022-12-20 05:55 Normal [facility] XR DEXA BONE DENSITYon 07-10 XR DEXA BONE DENSITY DEXA Bone Density Study CLINICAL: Evaluate bone mineral density. Postmenopausal COMPARISON: None FINDINGS: The bone density study was assessed by dual-energy x-ray absorptiometry with the [employer] scanner. The test results are expressed in [...] MATI ATKINS Date: 2022-07-10 16:49 Normal [facility] BNPon 02-14-2022 Natriuretic peptide B (Bld) [Mass/Vol] 1479.0 pg/mL Normal <=1,800.0 [facility] Comment on above: Performed By: #### E TABLISA Gr #### [facility] [address] [address] [address] Con Santana CBC AUTO DIFFon 02-14-2022 BASO # 0.1 103/ul Normal 0.0-0.1 [facility] Comment on above: Performed By: #### C BC #### [facility] [address] [place] [address] Dr. Con Santana Basophils/100 WBC (Bld) 0.9 % Normal 0.2-2.0 [facility] Comment on above: Performed By: #### C BC #### [facility] [address] [place] [address] Dr. Con Santana EO # 1.0 103/ul Critically high 0.0-0.7 [facility] Comment on above: Performed By: #### C BC #### [facility] [address] [place] [address] Dr. Con Santana Eosinophils/100 WBC (Bld) 16.2 % Critically high 0.9-7.0 [facility] Comment on above: Performed By: #### C BC #### [facility] [address] [place] [address] Dr. Con Santana Erythrocyte distribution width (RBC) [Ratio] 12.7 % Normal 11.0-15.0 [facility] Comment on above: Performed By: #### C BC #### [facility] [address] [place] [address] Dr. Con Santana Hematocrit (Bld) [Volume fraction] 39.6 % Normal 36.0-48.0 [facility] Comment on above: Performed By: #### C BC #### [facility] [address] [place] [address] Dr. Con Santana Hemoglobin (Bld) [Mass/Vol] 12.9 g/dL Normal 12.0-16.0 [facility] Comment on above: Performed By: #### C BC #### [facility] [address] [place] [address] Dr. Con Santana IG # 0.02 10e3/ul Normal 0.00-0.03 [facility] Comment on above: Performed By: #### C BC #### [facility] [address] [place] [address] Dr. Con Santana IG % 0.3 % Normal 0.0-0.5 [facility] Comment on above: Performed By: #### C BC #### [facility] [address] [place] [address] Dr. Con Santana LYMPH # 2.6 103/ul Normal 1.2-3.8 [facility] Comment on above: Performed By: #### C BC #### [facility] [address] [place] [address] Dr. Con Santana Lymphocytes/100 WBC (Bld) 40.2 % Normal 20.5-60.0 [facility] Comment on above: Performed By: #### C BC #### [facility] [address] [place] [address] Dr. Con Santana MANUAL DIFF REQ NO Normal [facility] Comment on above: Performed By: #### C BC #### [facility] [address] [place] [address] Dr. Con Santana MCH (RBC) [Entitic mass] 31.5 pg Normal 26.7-34.0 [facility] Comment on above: Performed By: #### C BC #### [facility] [address] [place] [address] Dr. Con Santana MCHC (RBC) [Mass/Vol] 32.6 g/dL Normal 29.9-35.2 [facility] Comment on above: Performed By: #### C BC #### [facility] [address] [place] [address] Dr. Con Santana MCV (RBC) [Entitic vol] 96.6 fL Normal 81.0-99.0 [facility] Comment on above: Performed By: #### C BC #### [facility] [address] [place] [address] Dr. Con Santana MONO # 0.5 103/ul Normal 0.3-0.8 [facility] Comment on above: Performed By: #### C BC #### [facility] [address] [address] [address] Con Santana Monocytes/100 WBC (Bld) 8.4 % Normal 1.7-12.0 [facility] Comment on above: Performed By: #### C BC #### [facility] [address] [address] [address] Con Santana NEUT # 2.2 103/ul Normal 1.4-6.5 [facility] Comment on above: Performed By: #### C BC #### [facility] [address] [address] [address] Con Santana Neutrophils/100 WBC (Bld) 34.0 % Critically low 43.0-75.0 [facility] Comment on above: Performed By: #### C BC #### [facility] [address] [place] [address] Dr. Con Santana Platelet mean volume (Bld) [Entitic vol] 9.8 fL Normal 9.5-13.5 [facility] Comment on above: Performed By: #### C BC #### [facility] [address] [place] [address] Dr. Con Santana PLT 270 103/ul Normal 150-450 [facility] Comment on above: Performed By: #### C BC #### [facility] [address] [place] [address] Dr. Con Santana RBC 4.10 106/ul Critically low 4.20-5.40 [facility] Comment on above: Performed By: #### C BC #### [facility] [address] [place] [address] Dr. Con Santana WBC 6.3 103/ul Normal 4.0-11.0 [facility] Comment on above: Performed By: #### C BC #### [facility] [address] [place] [address] Dr. Con Santana Covid-19 PCR ([facility])on 01-27 SARS-CoV-2 (COVID-19) RNA JEANE+probe Ql (Unsp spec) Not detected Normal NOT DETECTED [facility] Comment on above: Result Comment: When [...] for this test is supported by the [place] of [employer] and Human Service's declaration that [...] used). Performed By: #### C BC #### [facility] [address] [place] [address] Dr. Con Santana INFLUENZA A AND B AGon 02-14 INFLUSIERRA [place] SEE BELOW Normal [facility] Comment on above: Result Comment: Nega tive for Flu A protein angiten. Infection due to Flu A cannot be ruled out. Flu A angiten in the sample may be below the detection limit of the test. Performed By: #### C BC #### [facility] [address] [place] [address] Dr. Con Santana INFLUBNEG SEE BELOW Normal [facility] Comment on above: Result Comment: Nega tive for Flu B protein antigen. Infection due to Flu B cannot be ruled out. Flu B antigen in the sample may be below the detection limit of the test. Performed By: #### C BC #### [facility] [address] [place] [address] Dr. Con Santana INFLUENZA A AG Negative Normal NEGATIVE SEE COMMENT [facility] Comment on above: Performed By: #### C BC #### [facility] [address] [place] [address] Dr. Con Santana INFLUENZA B AG Negative Normal NEGATIVE SEE COMMENT [facility] Comment on above: Performed By: #### C BC #### [facility] [address] [address] [address] Con Santana INTERNAL CONTROLS Within Normal Limits Normal Wi thin Normal Limits [facility] Comment on above: Performed By: #### C BC #### [facility] [address] [address] [address] Con Santana PROF 14(COMP METB)on 022 Albumin [Mass/Vol] 3.1 g/dL Critically low 3.4-5.0 [facility] Comment on above: Performed By: #### H STROPN #### [facility] [address] [address] [address] Con Santana Albumin/Globulin [Mass ratio] 1.0 {ratio} Normal [facility] Comment on above: Performed By: #### H STROPN #### [facility] [address] [place] [address] Dr. Con Santana ALP [Catalytic activity/Vol] 88 U/L Normal 46-116 [facility] Comment on above: Performed By: #### H STROPN #### [facility] [address] [address] [address] Con Santana ALT [Catalytic activity/Vol] 26 U/L Normal 14-59 [facility] Comment on above: Performed By: #### H STROPN #### [facility] [address] [place] [address] Dr. Con Santana Anion gap [Moles/Vol] 11.2 mmol/L Normal [facility] Comment on above: Performed By: #### H STROPN #### [facility] [address] [address] [address] Con Santana AST [Catalytic activity/Vol] 24 U/L Normal 15-37 [facility] Comment on above: Performed By: #### H STROPN #### [facility] [address] [address] [address] Con Santana Bilirubin [Mass/Vol] 0.6 mg/dL Normal 0.2-1.0 [facility] Comment on above: Performed By: #### H STROPN #### [facility] [address] [address] [address] Con Santana Calcium [Mass/Vol] 8.4 mg/dL Critically low 8.5-10.1 [facility] Comment on above: Performed By: #### H STROPN #### [facility] [address] [address] [address] Con Santana Chloride [Moles/Vol] 106 mmol/L Normal 98-107 [facility] Comment on above: Performed By: #### H STROPN #### [facility] [address] [address] [address] Con Santana CO2 [Moles/Vol] 27.0 mmol/L Normal 21.0-32.0 [facility] Comment on above: Performed By: #### H STROPN #### [facility] [address] [place] [address] Dr. Con Santana Creatinine [Mass/Vol] 0.71 mg/dL Normal 0.55-1.02 [facility] Comment on above: Performed By: #### H STROPN #### [facility] [address] [place] [address] Dr. Con Santana EGFR-AF POLISH >60 Normal >=60 [facility] Comment on above: Performed By: #### H STROPN #### [facility] [address] [place] [address] Dr. Con Santana EGFR-NON AF POLISH >60 Normal >=60 [facility] Comment on above: Performed By: #### H STROPN #### [facility] [address] [place] [address] Dr. Con Santana Globulin (S) [Mass/Vol] 3.1 g/dL Normal [facility] Comment on above: Performed By: #### H STROPN #### [facility] [address] [address] [address] Con Santana Glucose [Mass/Vol] 104 mg/dL Normal 74-106 [facility] Comment on above: Performed By: #### H STROPN #### [facility] [address] [place] [address] Dr. Con Santana Potassium [Moles/Vol] 3.2 mmol/L Critically low 3.5-5.1 [facility] Comment on above: Performed By: #### H STROPN #### [facility] [address] [address] [address] Con Santana Protein [Mass/Vol] 6.2 g/dL Critically low 6.4-8.2 [facility] Comment on above: Performed By: #### H STROPN #### [facility] [address] [address] [address] Con Santana Sodium [Moles/Vol] 141 mmol/L Normal 136-145 [facility] Comment on above: Performed By: #### H STROPN #### [facility] [address] [place] [address] Dr. Con Santana Urea nitrogen [Mass/Vol] 13.0 mg/dL Normal 7.0-18.0 [facility] Comment on above: Performed By: #### H STROPN #### [facility] [address] [place] [address] Dr. Con Santana Urea nitrogen/Creatinine [Mass ratio] 18.3 mg/mg Normal [facility] Comment on above: Performed By: #### H STROPN #### [facility] [address] [place] [address] Dr. Con Santana TROPONIN, HIGH SENSITIVITYon 02-14-2022 HSTROP 20.9 pg/mL Normal 4.0-51.3 [facility] Comment on above: Result Comment: CUT- OFF POINTS HAVE BEEN ESTABLISHED BASED ON THE FOURTH UNIVERSAL DEFINITIONS OF MYOCARDIAL INFARCTION. THE UPPER REFERENCE LIMIT (URL) OF TROPONIN, DEFINED THE 99TH PERCENTILE OF cTnI DISTRIBUTION IN A REFERENCE POPULATION, HAS BEEN CONFIRMED THE DECISION THRESHOLD FOR SD DIAGNOSIS. Performed By: #### E LISA JAVIER #### [facility] [address] [place] [address] Dr. Con Santana XR CHEST 1 Von [...] by: KAROL VARELA Date: 2022-02-14 09:36 Normal [facility] XR chest 2V*on 01-15-2019 XR chest 2V* [facility] [place] [address] [place] [address] XRay Report Signed Patient: Salome Dominguez MR#: [id number] : 1940 Acct:[id number] Age/Sex: 78 / F ADM Date: 01/15/19 Loc: XDUCLY Room: Type: [facility] Attending Dr: Jack JAMES Ordering Provider: Jack [...] Maximiliano Campos M.D.01/15/2019 11:38 AM Dictation Location: [facility] Transcribed By: [facility] 01/15/19 1138 Dictated By: Maximiliano Campos II, MD 01/15/19 1137 Signed By: 01/15/[address] [facility] XR SHOULDER RIGHT TRAUMA SER IESon 08-21-2017 XR SHOULDER RIGHT TRAUMA SERIES 08/21/2017 5:37 PMXR SHOULDER RIGHT TRAUMA SERIESINDICATION: Fall.COMPARISON: None availableFINDINGS: 2 views the right shoulder. Comminuted fracture of the humerus involving the greater tuberosity and surgical neck. Humeral head remains articulate with the glenoid.IMPRESSION: Proximal humerus fracture.Workstation ID:[id number]; right arm injury. Best images possible. Normal [facility] Vital Signs Date Time Vital Sign Value Performing Clinician Facility 10-12-2023 11:00-0500 Body height 158.75 cm Effie Jackman Other [facility] Other 10-12-2023 11:00-0500 Body mass index (BMI) [Ratio] 18.18 kg/m2 Effie Jackman Other [facility] Other 10-12-2023 11:00-0500 Body weight 45.81 kg Effie Jackman Other [facility] Other 10-12-2023 11:00-0500 Diastolic blood pressure 64 mm[Hg] Effie Jackman Other [facility] Other 10-12-2023 11:00-0500 SaO2% (BldA) [Mass fraction] 97 % Effie Jackman Other [facility] Other 10-12-2023 11:00-0500 Systolic blood pressure 118 mm[Hg] Effie Jackman Other [facility] Other Encounters Encounter Date Encounter Type Care Provider Facility Start: 05-19-2024 ambulatory [facility] Start: 04-11-2024 End: 04-11-2024 ambulatory [facility] Start: 04-05-2024 Evaluation and management of inpatient [facility] Start: 04-04-2024 Evaluation and management of inpatient [facility] Start: 04-04-2024 Evaluation and management of inpatient CAMILLE CONCEPCION [facility] Start: 04-01-2024 Emergency department patient visit FELICIA MEDINA [facility] Start: 04-01-2024 End: 04-05-2024 Evaluation and management of inpatient MIREYA TOLENTINO [facility] Start: 04-01-2024 End: 04-01-2024 ambulatory PADMINI BILLINGS [facility] Start: 03-30-2024 End: 03-30-2024 ambulatory MICHAELA RICHARDSON Not Available Start: 03-22-2024 End: 03-22-2024 ambulatory JUANA MCDANIELS Not Available Start: 03-16-2024 End: 03-17-2024 ambulatory MICHAELA RICHARDSON Not Available Start: 12-31-2023 End: 12-31-2023 ambulatory MICHAELA H RICHARDSON Not Available Start: 11-18-2023 End: 11-18-2023 ambulatory MICHAELA RICHARDSON Not Available Start: 10-27-2023 End: 10-27-2023 ambulatory Effie Jackman Other [facility] Other Start: 10-27-2023 Telephone encounter Effie Jackman [facility] Start: 10-16-2023 End: 10-16-2023 ambulatory Effie Jackman Other [facility] Other Start: 10-16-2023 Telephone encounter Effie Jackman [facility] Start: 10-15-2023 End: 10-15-2023 ambulatory Effie Jackman Other [facility] Other Start: 10-15-2023 Telephone encounter Effie Jackman [facility] Start: 10-12-2023 Office outpatient visit 25 minutes Effie Jackman [facility] Start: 10-12-2023 Telephone encounter Effie Jackman [facility] Start: 10-12-2023 End: 10-12-2023 ambulatory NICHOLAS Joshua [facility] Other Start: 10-01-2023 End: 10-01-2023 ambulatory MICHAELA H RICHARDSON Not Available Start: 08-05-2023 End: 08-05-2023 ambulatory Effie Jackman Other [facility] Other Start: 08-05-2023 Telephone encounter Effie Jackman [facility] Start: 05-14-2023 End: 05-14-2023 ambulatory Effie Jackman Other [facility] Other Start: 05-14-2023 Telephone encounter Effie Jackman [facility] Start: 03-30-2023 End: 03-30-2023 ambulatory Effie Jackman Other [facility] Other Start: 03-30-2023 Telephone encounter Effie Jackman [facility] Start: 03-27-2023 End: 03-27-2023 ambulatory Effie Jackman Other [facility] Other Start: 03-27-2023 Telephone encounter Effie Jackman [facility] Start: 12-29-2022 End: 01-01-2023 Evaluation and management of inpatient DR JANI MORENO Facility:[facility] Start: 12-22-2022 End: 12-22-2022 Evaluation and management of inpatient DR JANI MORENO Facility:[facility] Start: 07-10-2022 End: 07-11-[address] JANI MORENO Facility:[facility] Start: 02-14-2022 End: 02-14-[address] JANI MORENO Facility:[facility] Start: 01-15-2019 End: 01-15-2019 Patient encounter procedure Jack Sanches Facility:[facility] Start: 11-20-2017 End: 11-21-2017 Ambulatory DEFAULT PHYSICIAN Facility:[facility] Start: 08-21-2017 End: 08-21-2017 Emergency department patient visit JACK PINA [facility] Start: 05-07-2017 End: 05-08-2017 Ambulatory DANIELLE COFFMAN Facility:[facility] Immunizations Immunization Date Immunization Notes Care Provider Roberta webb 07-03-2023 influenza, high dose seasonal, preservative-free Effie Augustina Other [facility] Other Payers Date Payer Category Payer Unknown [id number] 2017 Self-pay 2014 Unknown [id number] 2003 Medicare [id number] 1959 Unknown [id number] 1940 Unknown [id number] 2.16.84 [id number] 1940 Unknown [id number] 2.16.84 [id number] 1940 Unknown [id number] 2.16.84 [id number] 1940 Unknown [id number] 2.16.84 [id number] 1938 Unknown [id number] 2.16.84 [id number] 1938 Unknown [id number] 2.16.84 [id number] 1938 Unknown [id number] 2.16.84 [id number] 1938 Unknown [id number] 2.16.84 [id number] 1938 Unknown [id number] 2.16.84 [id number] 1938 Unknown [id number] 2.16.84 [id number] 1940 Unknown [id number] 2.16.840 .[id number] Medicare [id number] Unknown Unknown [id number] 2.16.84 [id number] Social History Date Type Detail Facility Unknown if ever smoked [facility] Other Sex Assigned At Sex Assigned At Bir th [facility] Other Clinical Notes 03-27-2023 to 04-11-2024 Note [...] nurse practitioner on 04/29/2020 Padmini Billings MD, [facility] 04-05-2024 Note Adult Nutrition Asse ssment: Name: [...] subcutaneous, Daily levothyroxine, 75 mcg, oral, Daily ywxqfp-ycdfvfdo-axrzqvm, 1 capsule, oral, TID with meals metoprolol [...] Special Kitchen Request Once Comments: Zay 2 hong konger toast, butter and syrup.turkey sausage, grits with brown sugar and butter, raspberry tunisian,orange juice and coffee, cream and sugar 04/03/24 0826 04/02/24 1302 Special Kitchen Request Once Comments: Zay send hot roast beef sandwich, mashed potatoes and gravy, Chicken noodle soup, Ramos pie,diet cola, cottage cheese 04/02/24 1303 Meal Intakes: no meals recorded Nutrition Risk: High Nutrition Needs: Needs based on: actual body weight Calorie needs: 7679-0382 kcals/day based on Equation: 25-30 kcal/kg MSJ x 1,0=5546 flori Protein needs: 41-49 g/day based on [...] Hand Grasp: Weak L Hand Grasp: Weak (Tube Carrier strength not assessed by RD) Treatment Plan: Continue liberalized diet Discussed with pt ways to increase nutrient density Boost+ vanilla or strawberry BID Mvi with iron Vit D level Contact the dietitian via [employer] chat 8A-4P Thursday through Thursday or call extension [phone]. For weekends & holidays, the dietitian can be reached via pager [phone] from 9A-3P. Unable to respond to [employer] messages on Thursday & s. [facility] 04-05-2024 Note Hospital Medicine Discharge Summary [...] placement. Patient underwent implementation of dual-chamber pacemaker, [employer] on 04/04 and did fairly well. [...] HYDROcodone-acetaminophen 5-325 mg tablet Commonly known as: [place] Take 1 tablet by mouth every 6 [...] Creon 3,000-9,500- 15,000 unit capsule Generic drug: dyoccz-pokjgwze-lzxpqci levothyroxine 75 mcg tablet Commonly known as: Synthroid, Levoxyl Vitamin B-12 1,000 mcg tablet Generic drug: cyanocobalamin Where to Get Your Medications These medications were sent to [facility]/pharmacy #[id number] [place], [place] - [address] [address] doxycycline 100 mg capsule metoprolol succinate XL 25 mg 24 hr tablet You can get these medications from any pharmacy Bring a paper prescription for each of these medications HYDROcodone-acetaminophen 5-325 mg tablet Salome is allergic to psyllium. [place] [facility] [place] Condition: Stable [...] was 60 minutes. Signed Mireya Tolentino MD [facility] Medicine 04/05/2024 12:16 PM [facility] 04-05-2024 Note Occupational Therapy Occupational Therapy [...] at home . Implantation of dual chamber PPM([employer]): submuscular implant 04/04/24 General Subjective: friendly [...] function) General Assessment General Assessment Hearing: (mild [place]) Hand Dominance: Right Home Living Home Living Type of Home: Senior apartment [facility]) Lives With: Spouse Home Adaptive Equipment: Walker rolling, Cane (sc, gb, hhs) Home Layout: One level Home Access: Level entry Bathroom Shower/Tub: Walk-in shower Prior Level of Function Prior Function Level of [place]: Independent with ADLs and functional transfers, Independent [...] [employer] (more content not included)... [facility] 04-05-2024 Note UTP CARDIOLOGY INPAT IENT [...] subcutaneous, Daily levothyroxine, 75 mcg, oral, Daily pbrfss-bpwbwiiy-qxuwfxp, 1 capsule, oral, TID with meals olopatadine, [...] Normal cardiomediastinal (more content not included)... [facility] 04-04-2024 Note DUAL CHAMBER PACEMAK ER IMPLANT PROCEDURE NOTE DATE OF PROCEDURE: 04/04/2024 PERFORMING PHYSICIAN: Dr. Issa Richards VEGETABLE HARVEST WORKER: MIKE CONSENT: Patient LOCATION: [employer] PROCEDURE PERFORMED: 1. Implantation of dual chamber PPM([employer]): submuscular implant. 2. U/S venous access [...] presented to ER per recommendation of her offshoring manager because of bradycardia. Patient's daughter reports that [...] occasions using seldinger technique using a 5 Chinese micropunture needle and exchanged for 0.034 wire. I decided to proceed with opening of the pocket. Localinfiltration of 1% Lidocaine was performed and an incision was created in the left upper chest. Dissection was then performed using cautery down. An active fixation [employer] pacing lead was then delivered via SPCC1 His sheath through the 9F sheath to the right ventricle. After confirmation of lead position on orthogonal views ([place]IN[place] and [place]IZ[place]) to confirm position in the septal aspect, [...] three 0- Silk sutures. An active fixation [employer] RA pacing lead was then delivered through the 6Fsheath to the right atrial appendage. After confirmation of lead position on orthogonal views (CHIRINOS and [place]IZ[place]) to confirm position in the appendage, the screw was activated. After confirmation of good sensing parameters, injury pattern and pacing thresholds, 10V pacing was done and no diaphragmatic stimulation was noted. It was then secured in the pocket using three 1-0 Silk sutures. At this stage, given the good thresholds, the backup His lead was removed. The leads were then attached to a [employer] PPM device and the leads tug [...] 2 weeks Issa Richards Cardiac Electrophysiology [facility] 04-04-2024 Note Patient: Salome Stewart Procedure Information Date/Time: 04/04/24 2191 Procedure: Implant PPM Location: [facility] GEOLOGIC TECHNICIAN 1 / [facility] (Cath) Providers: Issa Richards MD Clinical information reviewed: Tobacco Allergies Problems Med Hx Surg Hx OB Status Fam Hx Physical Exam Airway Mallampati: II TM distance: >3 FB Neck ROM: full Cardiovascular Dental Pulmonary Abdominal Anesthesia Plan ASA 2 CSE Anesthetic plan and risks discussed with patient. Use of blood products discussed with patient who. Additional Equipment Requests [facility] 04-04-2024 Note H&P reviewed. The lelia [...] agreed to proceed with the procedure. [facility] 04-04-2024 Note Hospital Medicine Daily Progress Note - 04/04/2024 9:43 AM; Room: [facility]313- Admission: 04/01/2024 5:28 PM; Length of stay: 3 days THE HOSPITALIST TEAM PREFERS TO USE [employer] CHAT FOR COMMUNICATION 7AM-7PM. IF I DO NOT RESPOND WITHIN 15 MINUTES, PLEASE PAGE ME/CALL THROUGH THE CEMENT OR CONCRETE FINISHING SUPERVISOR. FROM 7PM-7AM, PLEASE PAGE [phone](COVR) Code Status: Full Code Barriers to Discharge: [...] dyspnea, orthopnea, pre-syncope, syncope). EKG taken at [place] on 02/10 showed first degree AV block [...] 11:30 PM 04/04/2024 8:00 AM Site Assessment Red;[address] Prophylaxis: Lovenox Scheduled Meds ceFAZolin (Ancef) 1,000 mg, gentamicin (Garamycin) 80 mg in sodium chloride irrigation solution 0.9 % 500 mL IRRIGATION, , irrigation, Once ceFAZolin, 2 g, intravenous, Once enoxaparin, 40 mg, subcutaneous, Daily levothyroxine, 75 mcg, oral, Daily xfiduf-jnmbnwnb-qutpzkj, 1 capsule, oral, TID with meals olopatadine, [...] 19 CREATI (more content not included)... [facility] 04-04-2024 Note -- Attestation signed by [...] Richards MD, 30 mL at 04/04/24 1328 pljdso-mupgqhwu-exedeej (Creon) 3,000-9,500- 15,000 unit per capsule 1 [...] Mirian Pelaez MD PGY3 Internal Medicine [facility] 04-03-2024 Note Hospital Medicine Daily Progress Note - 04/03/2024 12:05 PM; Room: [address] [place] [address] Admission: 04/01/2024 5:28 PM; Length of stay: 2 days THE HOSPITALIST TEAM PREFERS TO USE [employer] CHAT FOR COMMUNICATION 7AM-7PM. IF I DO NOT RESPOND WITHIN 15 MINUTES, PLEASE PAGE ME/CALL THROUGH THE CEMENT OR CONCRETE FINISHING SUPERVISOR. FROM 7PM-7AM, PLEASE PAGE [phone](COVR) Code Status: Full Code Barriers to Discharge: [...] 11:30 PM 04/03/2024 8:00 AM Site Assessment Red;[address] Red;[address] VTE Prophylaxis: Lovenox Scheduled Meds enoxaparin, 40 mg, subcutaneous, Daily levothyroxine, 75 mcg, oral, Daily egufxk-lpqwrjpm-pbhckcy, 1 capsule, oral, TID with meals pantoprazole, [...] FREET4 0.77 04/01/2024 No results found for: [id number] , IRON , TIBC , C3 , [...] MD Hospital Medicine 04/03/2024 12:05 PM [facility] 04-03-2024 Note -- Attestation signed by [...] QT Interval 532 QTC CALCULATION(BAZETT) 411 P [place] 82 R-[place] -60 T Wave [place] 71 Impression Sinus rhythm with complete heart [...] Cardiology will follow along Orlando Valdez MD [employer] Knitting Machine Operator PGY-4 [facility] 04-02-2024 Note Hospital Medicine Daily Progress Note - 04/02/2024 11:29 AM; Room: 3133/3133-01 Admission: 04/01/2024 5:28 PM; Length of stay: 1 days THE HOSPITALIST TEAM PREFERS TO USE [employer] CHAT FOR COMMUNICATION 7AM-7PM. IF I DO NOT RESPOND WITHIN 15 MINUTES, PLEASE PAGE ME/CALL THROUGH THE CEMENT OR CONCRETE FINISHING SUPERVISOR. FROM 7PM-7AM, PLEASE PAGE [phone](COVR) Code Status: Full Code Barriers to Discharge: [...] 11:30 PM 04/02/2024 9:00 AM Site Assessment Red;[address] Red;[address] VTE Prophylaxis: Lovenox Scheduled Meds [START ON [...] FREET4 0.77 04/01/2024 No results found for: [id number] , IRON , TIBC , C3 , [...] signed: Eleazar Olmedo. Discharge Planning Signed Mireya Tolenitno MD Hospital Medicine 04/02/2024 11:29 AM [facility] 04-01-2024 Note Hospital Medicine History and Physical 04/01/2024 11:08 PM THE HOSPITALIST TEAM PREFERS TO USE [employer] FOR COMMUNICATION 7AM-7PM. IF I DO NOT RESPOND WITHIN 15 MINUTES, PLEASE PAGE ME/CALL THROUGH THE CEMENT OR CONCRETE FINISHING SUPERVISOR. FROM 7PM-7AM, PLEASE PAGE [phone](COVR) Chief Complaint Chief Complaint Patient presents with Bradycardia Pt sent by [place] cardiology for bradycardia. Pt c/o occasional SOB but denies being symptomatic otherwise. History of Present Illness Salome Dominguez is an 83 y.o. female who came from home with past medical history of hypothyroidism, anemia, COPD, aortic valve stenosis, asthma and dementia presented to ER per recommendation of her offshoring manager that the patient saw today because of [...] Date Noted Bradycardia 04/01/2024 Complete heart block ([facility]/HCC) 04/01/2024 Murmur, heart 04/01/2024 SERRANO (dyspnea on exertion) 04/01/2024 Third degree heart block ([facility]/HCC) 04/01/2024 Dementia ([facility]) 03/15/2024 Hypothyroidism 03/15/2024 Long-term use of high-risk medication 03/15/2024 Lesion of skin of scalp 07/01/2023 Sensorineural hearing loss, bilateral 07/01/2023 Acute combined systolic and diastolic heart failure (CMS/HCC) 06/30/2023 Chronic fatigue, unspecified 06/30/2023 Diabetes mellitus ([facility]/HCC) 06/30/2023 Essential (primary) hypertension 06/30/2023 Age related osteoporosis 06/08/2023 Anxiety disorder, unspecified 06/08/2023 Asymptomatic varicose veins 06/08/2023 Ataxic gait 06/08/2023 Biliary cirrhosis ([facility]/HCC) 06/08/2023 Bladder atonia 06/08/2023 Cardiomegaly 06/08/2023 Chronic [...] Moderate episode of recurrent major depressive disorder ([facility]/HCC) 06/08/2023 Moderate persistent asthma without complication 06/08/2023 Myositis 06/08/2023 Nonrheumatic aortic valve stenosis 06/08/2023 Osteoarthritis of lumbar spine 06/08/2023 Other congenital valgus deformity of feet 06/08/2023 Other seborrheic keratosis 06/08/2023 Paroxysmal atrial fibrillation (CMS/HCC) 06/08/2023 Pure hypercholesterolemia 06/08/2023 Restless legs syndrome 06/08/2023 Transient cerebral ischemia 06/08/2023 Chronic obstructive pulmonary disease with (acute) exacerbation ([facility]) 03/12/2023 Osteoarthrosis, hand 10/15/2009 Bacterial overgrowth syndrome 05/17/2009 Abdominal pain, lef (more content not included)... [facility] 04-01-2024 Note 04/01/242033 Financial Resource Strain [...] have you lived? 1 (Lives at [facility] w/ ) In the last [...] than 3 How often do you attend anabaptist or temple services? Never Do you belong to any clubs or organizations such as anabaptist groups, unions, fraternal or athletic groups, or [...] has the electric, gas, oil, or water [employer] threatened to shut off services in your home? 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 Referral Reason Psychosocial assessment Patient Information Primary Caregiver Private caregiver Accompanied by/Relationship Daughter Alexia, elke Brown Activities of Daily Living Assistive Device Walker (uses sometimes) Living Arrangement (Current/Prior to Hospitalization) Private residence ([facility] independent living w/ ) Ambulation Minimum assistance (uses walker sometimes) Dressing Independent Feeding Independent Behavior Oriented (A&Ox4) Communication Can write;Talks;Understands speaking;Understands Sierra Leonean;Reads Income Information Income Source Unemployed (Retired) Discharge Planning Support Systems Spouse/significant other;Children ( Kevin; six daughters (Alexia, Kait, Donita, Jasmin, Doris, Savana); son Karol) Type of Residence Private residence;Home care staff Will patient need Precert for Post Acute needs? No Patient's goal for discharge Return to [facility] with continued COREMAKER PIPE Does the patient need discharge transport arranged? No Completed social work assessment and SDoH screening. Patient was A&Ox4 at this time. Patient's , Kevin, and daughter, Alexia, were currently present at bedside. Patient reported that she lives at [facility] with her . Patient identified her support system as her (Kevin), her six daughters (Alexia, Kait, Donita, Jasmin, Doris, and Savana), and her son (Karol). Patient endorsed that she is moderately socially active. Patient reported that she needs assistance with bathing, which is provided by one of her daughters or by her COREMAKER PIPE who visits 2x/week. Patient reported that she [...] alcohol consumption or recreational drug use. [facility] 04-01-2024 Note [place] [facility] Note Reason for cardiology [...] mood, affect, and judgement. Labs: 12/23/2023 at [facility] TSH 9.379., White blood count 4.6, [...] left a (more content not included)... [facility] 10-16-2023 Evaluation note Encounter Date Diagnosis Assessment Notes Sep, Hypokalemia (ICD-10 - E87.6) [employer] Other 01-18-2024 Evaluation note* Encounter Date Diagnosis Assessment Notes Treatment Notes Treatment Clinical Notes Sep, Other symptoms and signs involving appearance and behavior (ICD-10 - R46.89) [employer] Other 01-15-2024 Evaluation note* Encounter Date Diagnosis [...] Pt reinforced to take med as prescribed. [employer] Other 11-08-2023 Evaluation note* Encounter Date Diagnosis Assessment Notes Treatment Notes Treatment Clinical Notes Jul, Restless leg syndrome (ICD-10 - G25.81) [employer] Other 08-17-2023 Evaluation note* Encounter Date Diagnosis Assessment Notes Treatment Notes Treatment Clinical Notes Apr, Chronic diarrhea (ICD-10 - K52.9) [employer] Other 06-30-2023 Evaluation note* Encounter Date Diagnosis Assessment Notes Treatment Notes Treatment Clinical Notes Feb, Moderate persistent asthma without complication (ICD-10 - J45.40) [employer] Other Evaluation noteNo InformationN[employer] Other History general Narrative - Reported* Type Description Date Medical History Atrial fibrillation Medical History asthma Medical History arthritia Medical History insomnia Surgical History cholecystectomy Surgical History hysterectomy Surgical History appendectomy Surgical History bowel surgery Surgical History surgery on L fourth toe 08/2016 Hospitalization History pneumonia [employer] Other History general Narrative - Reported* Type Description Date Medical History Atrial fibrillation Medical History asthma Medical History arthritia Medical History insomnia Medical History Bladder stimulator Surgical History cholecystectomy Surgical History hysterectomy Surgical History appendectomy Surgical History bowel surgery Surgical History surgery on L fourth toe 08/2016 Hospitalization History pneumonia [employer] Other Summary Purpose Family History No Family [...] Directives Records Found Reason for Referral Reason [place] office - Do cuments scanned from family. CT brain pending. Behavioral and safety concerns. Notes from family scanned into chart Diagnosis 1 Other symptoms and s igns involving cognitive functions and awareness (R41.89) Referral Organization [facility] Referring Provider First Name Effie Referring Provider Last Name Augustina Referring Provider Specialty Family [facility] Referred Organization [facility] Referred Address [address] [facility] [place],[address] Referred Provider Specialty Neurology Referral Priority Routine Additional Source Comments INFORMATION SOURCE (unrecogn ized section and content) DATE CREATED AUTHOR 03/19/2018 [facility] DATE CREATED AUTHOR AUTHOR'S ORGANIZ ATION 03/24/2018 [facility] DATE CREATED AUTHOR AUTHOR'S ORGANIZ ATION 04/22/2018 [facility] DATE CREATED AUTHOR AUTHOR'S ORGANIZ ATION 01/16/2019 [facility] DATE CREATED AUTHOR AUTHOR'S ORGANIZ ATION 01/03/2023 [facility] DATE CREATED AUTHOR AUTHOR'S ORGANIZ ATION 04/01/2024 [facility] DATE CREATED AUTHOR AUTHOR'S ORGANIZ ATION 04/12/2024 [facility] DATE CREATED AUTHOR AUTHOR'S ORGANIZ ATION [...] BE BASED ON THE PRIMARY CLINICAL RECORDS. [employer] [facility]. provides no warranty or guarantee of the accuracy or completeness of information in this document.
--- NOTE | 2024-09-10 17:36 | ED_ITS ---
Documented by User: Mike Wilder MD 09/10/24 18:32 HPI - SOB/Dyspnea General Chief Complaint: Shortness of Breath/Dyspnea Stated Complaint: SOB Time Seen by Provider: 09/10/24 17:25 History of Present Illness HPI Narrative: This patient is here complaining of shortness of breath. He is seen to be a little bit worse today than usual. She has fairly frequent visits to the ER for similar problems. I have reviewed her old charts including her cardiac echo and previous ER visits. She says she has tried to give herself a couple breathing treatments today but they did not really work very well. She does not use oxygen at home. She is not currently on any steroids or antibiotics. Her brought her to the hospital. She does not have any heaviness pressure chest pain or discomfort in the chest area. 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 Her ejection fraction was preserved at that time. The indication for the echo on that order form indicated that she had an elevated BNP. She has not had previous coronary disease. She does have a pacemaker in place. She does not have sputum production. Slight runny nose. Does not have a sore throat. Does not have influenza type symptoms such as aches pains chills and headache are all negative. Related Data Home Medications ?Medication ?Instructions ?Recorded ?Confirmed albuterol sulfate 90 mcg/actuation 2 puff inhalation DAILY 02/11/24 07/22/24 aerosol inhaler levothyroxine 75 mcg tablet 75 mcg PO DAILY 02/11/24 07/22/24 metoprolol succinate 25 mg 12.5 mg PO DAILY 05/11/24 07/22/24 tablet,extended release 24 hr cyanocobalamin (vitamin B-12) 1,000 mcg PO .qd 06/27/24 07/22/24 1,000 mcg tablet idjiqi-qtjqsexy-mahckoh 1 cap PO TID 06/27/24 07/22/24 3,000-9,500-15,000 unit capsule, delayed rel (Creon) Previous Rx's ?Medication ?Instructions ?Recorded albuterol sulfate 2.5 mg/3 mL 2.5 mg (3 mL) inhalation Q6H PRN 05/26/24 (0.083 %) solution for nebulization shortness of breath or wheezing #180 mL nebulizers (Aeroneb Go Nebulizer) #1 ea 05/26/24 albuterol sulfate 90 mcg/actuation 2 inh inhalation Q8H PRN shortness 09/10/24 aerosol inhaler of breath or wheezing #8.5 grams azithromycin 250 mg tablet See Rx Instructions PO .COMPLEX #6 09/10/24 (Zithromax Z-Mohinder) tabs prednisone 20 mg tablet 40 mg (2 x 20 mg) PO DAILY 5 days 09/10/24 #10 tabs Allergies Allergy/AdvReac Type Severity Reaction Status Date / Time psyllium (From Metamucil) Allergy Severe Hives Verified 07/22/24 20:46 [facility] Medical History (Updated 09/10/24 @ 18:33 by Mike Wilder MD) Severe protein-calorie malnutrition ?E43 - Unspecified severe protein-calorie malnutrition (ICD-10) Acute hyponatremia ?E87.1 - Hypo-osmolality and hyponatremia (ICD-10) Chronic diastolic (congestive) heart failure ?I50.32 - Chronic diastolic (congestive) heart failure (ICD-10) Primary hypertension ?I10 - Essential (primary) hypertension (ICD-10) Hypothyroidism (acquired) ?E03.9 - Hypothyroidism, unspecified (ICD-10) Abnormal CT scan, gastrointestinal tract ?R93.3 - Abnormal findings on diagnostic imaging of other parts of digestive tract (ICD-10) Ileus ?K56.7 - Ileus, unspecified (ICD-10) Abnormal CT of the abdomen ?R93.5 - Abnormal findings on diagnostic imaging of other abdominal regions, including retroperitoneum (ICD-10) Adult failure to thrive ?R62.7 - Adult failure to thrive (ICD-10) COPD (chronic obstructive pulmonary disease) ?J44.9 - Chronic obstructive pulmonary disease, unspecified (ICD-10) Shortness of breath ?R06.02 - Shortness of breath (ICD-10) Pacemaker ?Z95.0 - Presence of cardiac pacemaker (ICD-10) Asthma ?J45.909 - Unspecified asthma, uncomplicated (ICD-10) Surgical History History of cholecystectomy ?Z90.49 - Acquired absence of other specified parts of digestive tract (ICD- 10) History of hysterectomy ?Z90.710 - Acquired absence of both cervix and uterus (ICD-10) History of appendectomy ?Z90.49 - Acquired absence of other specified parts of digestive tract (ICD- 10) Family History Brother Family history of COPD (chronic obstructive pulmonary disease) Social History Within the past year, how often did you have a drink containing alcohol: monthly or less Within the past year, how many standard drinks containing alcohol did you have on a typical day: 1 or 2 Within the past year, how often did you have six or more drinks on one occasion: never Total score: 0 Score interpretation: A score less than 3 is consistent with normal alcohol consumption. Smoking status: Never smoker Non-prescribed substance use: denies use Previous occupational history: retired Highest level of school completed/degree received: Associate degree: occupational, technical, vocational program Are you now , , , , never or living with a partner: Little interest or pleasure in doing things: not at all Feeling down, depressed, or hopeless: not at all Feel stressed/tense/nervous/anxious/difficulty sleeping: not at all Do you think of yourself as: straight/heterosexual Gender Identity: female Exam Narrative Exam Narrative: Awake alert oriented x 3 slightly hard of hearing but a good communicator. Denies any pain or discomfort at this time. Her pulse oximetry on room air is 98% with a respiratory rate of 24. She is not coughing there is no stridor. There is no anxiety. Her skin is warm and dry mucous membranes are moist and pink. She is edentulous. On HEENT examination airway is normal with no stridor. No upper airway swelling or rhinorrhea. Her lungs have diminished breath sounds bilaterally. There is very slight wheezing. Heart sounds show a systolic murmur at the aortic and mitral listening points. Grade 2/6 to 3/6. Abdomen is normal with no discomfort. Extremities show 1+ lower leg edema bilaterally with no evidence of erythema or cellulitis. Cognition and mentation are excellent. Constitutional Vital Signs, click to edit/add: Last Vital Signs Temp 98.3 F 09/10/24 17:34 Pulse 95 H 09/10/24 20:00 Resp 19 09/10/24 20:00 BP 135/76 09/10/24 17:34 Pulse Ox 95 09/10/24 18:50 O2 Del Method Room Air 09/10/24 17:56 Course Vital Signs Vital signs: Vital Signs Blood Pressure 135/76 09/10/24 17:29 Temperature 98.3 F 09/10/24 17:34 Pulse Rate 95 H 09/10/24 20:00 Respiratory Rate 19 09/10/24 20:00 Blood Pressure 135/76 09/10/24 17:34 Pulse Oximetry 95 09/10/24 18:50 Oxygen Delivery Method Room Air 09/10/24 17:56 MDM - SOB/Dyspnea Lab Data Labs: Lab Results 09/10/24 09/10/24 Range/Units 17:40 18:55 WBC 4.3 (4.0-11.0) 10^3/uL RBC 3.39 L (4.20-5.40) 10^6/uL Hgb 10.2 L (12.0-16.0) g/dL Hct 32.4 L (36.0-48.0) % MCV 95.6 (81.0-99.0) fL MCH 30.1 (26.7-34.0) pg MCHC 31.5 (29.9-35.2) g/dL RDW 15.7 H (11.0-15.0) % Plt Count 237 (150-450) 10^3/uL MPV 9.8 (9.5-13.5) fL Neut % (Auto) 27.9 L (43.0-75.0) % Lymph % (Auto) 40.2 (20.5-60.0) % [place] % (Auto) 12.8 H (1.7-12.0) % Eos % (Auto) 17.7 H (0.9-7.0) % Baso % (Auto) 1.4 (0.2-2.0) % Neut # (Auto) 1.2 L (1.4-6.5) 10^3/uL Lymph # (Auto) 1.7 (1.2-3.8) 10^3/uL [place] # (Auto) 0.6 (0.3-0.8) 10^3/uL Eos # (Auto) 0.8 H (0.0-0.7) 10^3/uL Baso # (Auto) 0.1 (0.0-0.1) 10^3/uL Abs Immat Gran (auto) 0.00 (0.00-0.03) 10^3/uL Imm/Tot Granulo (auto) 0.0 (0.0-0.5) % VBG pH 7.370 (7.330-7.430) VBG pCO2 49.4 (40.0-52.0) mmHg Sodium 139 (136-145) mmol/L Potassium 4.7 (3.5-5.1) mmol/L Chloride 106 (98-107) mmol/L Carbon Dioxide 30.1 (21.0-32.0) mmol/L Anion Gap 7.6 BUN 16.0 (7.0-18.0) mg/dL Creatinine 0.74 (0.55-1.02) mg/dL Est GFR ( Amer) >60 (>=60 mL/min/1.73m^2) Est GFR (Non-Af Amer) >60 (>=60 mL/min/1.73m^2) BUN/Creatinine Ratio 21.6 Glucose 78 (74-106) mg/dL Calcium 8.3 L (8.5-10.1) mg/dL Total Bilirubin 0.4 (0.2-1.0) mg/dL AST 29 (15-37) U/L ALT 26 (14-59) U/L Alkaline Phosphatase 87 (46-116) U/L Troponin I High Sens 10.2 9.1 (4.0-51.3) pg/mL NT-Pro-B Natriuret Pep 3028.0 H* (<=1800.0) pg/mL Total Protein 5.8 L (6.4-8.2) g/dL Albumin 3.0 L (3.4-5.0) g/dL Globulin 2.8 g/dL Albumin/Globulin Ratio 1.1 Discharge Plan Discharge Chief Complaint: Shortness of Breath/Dyspnea Clinical Impression: Acute exacerbation of chronic obstructive pulmonary disease Patient Disposition: Home, Self-Care Time of Disposition Decision: 19:59 Condition: Good Mode of Transportation: Private Vehicle Prescriptions / Home Meds: New albuterol sulfate 90 mcg/actuation HFA aerosol inhaler 2 inh inhalation Q8H PRN (Reason: shortness of breath or wheezing) Qty: 8.5 0RF prednisone 20 mg tablet 40 mg PO DAILY 5 Days Qty: 10 0RF azithromycin [Zithromax Z-Mohinder] 250 mg tablet See Rx Instructions .ROUTE .COMPLEX Qty: 6 0RF Rx Instructions: For 250 mg dose pack: take 500 mg today (day 1), then 250 mg for 4 days (days 2-5) No Action levothyroxine 75 mcg tablet 75 mcg PO DAILY albuterol sulfate 90 mcg/actuation HFA aerosol inhaler 2 puff INHALATION DAILY metoprolol succinate 25 mg tablet extended release 24 hr 12.5 mg PO DAILY (DME) nebulizers [Aeroneb Go Nebulizer] Misc See Rx Instructions .Route Qty: 1 0RF Rx Instructions: As directed please use for breathing treatment as directed albuterol sulfate 2.5 mg /3 mL (0.083 %) solution for nebulization 2.5 mg inhalation Q6H PRN (Reason: shortness of breath or wheezing) Qty: 180 0RF Creon 3,000-9,500- 15,000 unit capsule,delayed release(DR/EC) 1 cap PO TID cyanocobalamin (vitamin B-12) 1,000 mcg tablet 1,000 mcg PO .qd Print Language: Dominican Instructions: COPD (Chronic Obstructive Pulmonary Disease) (ED) Referrals: Effie Jackman MD [Primary Care Provider] - 1 week Discharge Date/Time: 09/10/24 20:45 Documented by User: Meera Cuba MD 09/11/24 01:22 HPI - SOB/Dyspnea General Chief Complaint: Shortness of Breath/Dyspnea Stated Complaint: SOB Time Seen by Provider: 09/10/24 17:25 Related Data Home Medications ?Medication ?Instructions ?Recorded ?Confirmed albuterol sulfate 90 mcg/actuation 2 puff inhalation DAILY 02/11/24 07/22/24 aerosol inhaler levothyroxine 75 mcg tablet 75 mcg PO DAILY 02/11/24 07/22/24 metoprolol succinate 25 mg 12.5 mg PO DAILY 05/11/24 07/22/24 tablet,extended release 24 hr cyanocobalamin (vitamin B-12) 1,000 mcg PO .qd 06/27/24 07/22/24 1,000 mcg tablet fwyloy-axedvrkr-vnukirl 1 cap PO TID 06/27/24 07/22/24 3,000-9,500-15,000 unit capsule, delayed rel (Creon) Previous Rx's ?Medication ?Instructions ?Recorded albuterol sulfate 2.5 mg/3 mL 2.5 mg (3 mL) inhalation Q6H PRN 05/26/24 (0.083 %) solution for nebulization shortness of breath or wheezing #180 mL nebulizers ([employer] Go Nebulizer) #1 ea 05/26/24 albuterol sulfate 90 mcg/actuation 2 inh inhalation Q8H PRN shortness 09/10/24 aerosol inhaler of breath or wheezing #8.5 grams azithromycin 250 mg tablet See Rx Instructions PO .COMPLEX #6 09/10/24 (Zithromax Z-Mohinder) tabs prednisone 20 mg tablet 40 mg (2 x 20 mg) PO DAILY 5 days 09/10/24 #10 tabs Allergies Allergy/AdvReac Type Severity Reaction Status Date / Time psyllium (From Metamucil) Allergy Severe Hives Verified 07/22/24 20:46 [facility] Medical History (Updated 09/10/24 @ 18:33 by Mike Wilder MD) Severe protein-calorie malnutrition ?E43 - Unspecified severe protein-calorie malnutrition (ICD-10) Acute hyponatremia ?E87.1 - Hypo-osmolality and hyponatremia (ICD-10) Chronic diastolic (congestive) heart failure ?I50.32 - Chronic diastolic (congestive) heart failure (ICD-10) Primary hypertension ?I10 - Essential (primary) hypertension (ICD-10) Hypothyroidism (acquired) ?E03.9 - Hypothyroidism, unspecified (ICD-10) Abnormal CT scan, gastrointestinal tract ?R93.3 - Abnormal findings on diagnostic imaging of other parts of digestive tract (ICD-10) Ileus ?K56.7 - Ileus, unspecified (ICD-10) Abnormal CT of the abdomen ?R93.5 - Abnormal findings on diagnostic imaging of other abdominal regions, including retroperitoneum (ICD-10) Adult failure to thrive ?R62.7 - Adult failure to thrive (ICD-10) COPD (chronic obstructive pulmonary disease) ?J44.9 - Chronic obstructive pulmonary disease, unspecified (ICD-10) Shortness of breath ?R06.02 - Shortness of breath (ICD-10) Pacemaker ?Z95.0 - Presence of cardiac pacemaker (ICD-10) Asthma ?J45.909 - Unspecified asthma, uncomplicated (ICD-10) Surgical History History of cholecystectomy ?Z90.49 - Acquired absence of other specified parts of digestive tract (ICD- 10) History of hysterectomy ?Z90.710 - Acquired absence of both cervix and uterus (ICD-10) History of appendectomy ?Z90.49 - Acquired absence of other specified parts of digestive tract (ICD- 10) Family History Brother Family history of COPD (chronic obstructive pulmonary disease) Social History Within the past year, how often did you have a drink containing alcohol: monthly or less Within the past year, how many standard drinks containing alcohol did you have on a typical day: 1 or 2 Within the past year, how often did you have six or more drinks on one occasion: never Total score: 0 Score interpretation: A score less than 3 is consistent with normal alcohol consumption. Smoking status: Never smoker Non-prescribed substance use: denies use Previous occupational history: retired Highest level of school completed/degree received: Associate degree: occupatio nal, technical, vocational program Are you now , , , , never or living with a partner: Little interest or pleasure in doing things: not at all Feeling down, depressed, or hopeless: not at all Feel stressed/tense/nervous/anxious/difficulty sleeping: not at all Do you think of yourself as: straight/heterosexual Gender Identity: female Exam Constitutional Vital Signs, click to edit/add: Last Vital Signs Temp 98.3 F 09/10/24 17:34 Pulse 95 H 09/10/24 20:00 Resp 19 09/10/24 20:00 BP 135/76 09/10/24 17:34 Pulse Ox 95 09/10/24 18:50 O2 Del Method Room Air 09/10/24 17:56 Course Vital Signs Vital signs: Vital Signs Blood Pressure 135/76 09/10/24 17:29 Temperature 98.3 F 09/10/24 17:34 Pulse Rate 95 H 09/10/24 20:00 Respiratory Rate 19 09/10/24 20:00 Blood Pressure 135/76 09/10/24 17:34 Pulse Oximetry 95 09/10/24 18:50 Oxygen Delivery Method Room Air 09/10/24 17:56 MDM - SOB/Dyspnea MDM Narrative Medical decision making narrative: The patient care was transferred to sd at 7 PM at the beginning of the shift Awaiting the results of the second troponin she already had a workup showing no acute significant pathology with a BNP up that is not elevated compared to her baseline The patient was already feeling much better she was discharged home after that troponin came negative for any trending up and the patient was discharged with a possible COPD exacerbation Provided with a prednisone in addition to refilling her albuterol inhaler and Z- Mohinder The patient is to follow up with primary care physician in next 2-3 days or to return to the emergency department should any of the signs or symptoms worsen or new symptoms develop. The patient agrees with the following Diagnosis and Treatment plan and the patient will be discharged home. Clinical impression : COPD exacerbation Lab Data Labs: Lab Results 09/10/24 09/10/24 Range/Units 17:40 18:55 WBC 4.3 (4.0-11.0) 10^3/uL RBC 3.39 L (4.20-5.40) 10^6/uL Hgb 10.2 L (12.0-16.0) g/dL Hct 32.4 L (36.0-48.0) % MCV 95.6 (81.0-99.0) fL MCH 30.1 (26.7-34.0) pg MCHC 31.5 (29.9-35.2) g/dL RDW 15.7 H (11.0-15.0) % Plt Count 237 (150-450) 10^3/uL MPV 9.8 (9.5-13.5) fL Neut % (Auto) 27.9 L (43.0-75.0) % Lymph % (Auto) 40.2 (20.5-60.0) % [place] % (Auto) 12.8 H (1.7-12.0) % Eos % (Auto) 17.7 H (0.9-7.0) % Baso % (Auto) 1.4 (0.2-2.0) % Neut # (Auto) 1.2 L (1.4-6.5) 10^3/uL Lymph # (Auto) 1.7 (1.2-3.8) 10^3/uL [place] # (Auto) 0.6 (0.3-0.8) 10^3/uL Eos # (Auto) 0.8 H (0.0-0.7) 10^3/uL Baso # (Auto) 0.1 (0.0-0.1) 10^3/uL Abs Immat Gran (auto) 0.00 (0.00-0.03) 10^3/uL Imm/Tot Granulo (auto) 0.0 (0.0-0.5) % VBG pH 7.370 (7.330-7.430) VBG pCO2 49.4 (40.0-52.0) mmHg Sodium 139 (136-145) mmol/L Potassium 4.7 (3.5-5.1) mmol/L Chloride 106 (98-107) mmol/L Carbon Dioxide 30.1 (21.0-32.0) mmol/L Anion Gap 7.6 BUN 16.0 (7.0-18.0) mg/dL Creatinine 0.74 (0.55-1.02) mg/dL Est GFR ( Amer) >60 (>=60 mL/min/1.73m^2) Est GFR (Non-Af Amer) >60 (>=60 mL/min/1.73m^2) BUN/Creatinine Ratio 21.6 Glucose 78 (74-106) mg/dL Calcium 8.3 L (8.5-10.1) mg/dL Total Bilirubin 0.4 (0.2-1.0) mg/dL AST 29 (15-37) U/L ALT 26 (14-59) U/L Alkaline Phosphatase 87 (46-116) U/L Troponin I High Sens 10.2 9.1 (4.0-51.3) pg/mL NT-Pro-B Natriuret Pep 3028.0 H* (<=1800.0) pg/mL Total Protein 5.8 L (6.4-8.2) g/dL Albumin 3.0 L (3.4-5.0) g/dL Globulin 2.8 g/dL Albumin/Globulin Ratio 1.1 Discharge Plan Discharge Chief Complaint: Shortness of Breath/Dyspnea Clinical Impression: Acute exacerbation of chronic obstructive pulmonary disease Patient Disposition: Home, Self-Care Time of Disposition Decision: 19:59 Condition: Good Mode of Transportation: Private Vehicle Prescriptions / Home Meds: New albuterol sulfate 90 mcg/actuation HFA aerosol inhaler 2 inh inhalation Q8H PRN (Reason: shortness of breath or wheezing) Qty: 8.5 0RF prednisone 20 mg tablet 40 mg PO DAILY 5 Days Qty: 10 0RF azithromycin [Zithromax Z-Mohinder] 250 mg tablet See Rx Instructions .ROUTE .COMPLEX Qty: 6 0RF Rx Instructions: For 250 mg dose pack: take 500 mg today (day 1), then 250 mg for 4 days (days 2-5) No Action levothyroxine 75 mcg tablet 75 mcg PO DAILY albuterol sulfate 90 mcg/actuation HFA aerosol inhaler 2 puff INHALATION DAILY metoprolol succinate 25 mg tablet extended release 24 hr 12.5 mg PO DAILY (DME) nebulizers [Aeroneb Go Nebulizer] Misc See Rx Instructions .Route Qty: 1 0RF Rx Instructions: As directed please use for breathing treatment as directed albuterol sulfate 2.5 mg /3 mL (0.083 %) solution for nebulization 2.5 mg inhalation Q6H PRN (Reason: shortness of breath or wheezing) Qty: 180 0RF Creon 3,000-9,500- 15,000 unit capsule,delayed release(DR/EC) 1 cap PO TID cyanocobalamin (vitamin B-12) 1,000 mcg tablet 1,000 mcg PO .qd Print Language: Dominican Instructions: COPD (Chronic Obstructive Pulmonary Disease) (ED) Referrals: Effie Jackman MD [Primary Care Provider] - 1 week Discharge Date/Time: 09/10/24 20:45
--- NOTE | 2024-09-10 17:38 | ECG_ITS ---
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
--- NOTE | 2024-09-10 17:38 | XR_ITS ---
The [address] [address] Patient Name: CECELIA VILLALPANDO MRN: [id number] date: 1940 Sex: F Assigned Patient Location: ER Current Patient Location: ED.MAIN Accession/Order Number: [id number] Exam Date: 09/10/2024 17:50 Report Date: 09/10/2024 19:11 At the request of: DAVID MCCLENDON Procedure: XR chest 1V CXR HISTORY: Shortness of breath. COMPARISON: 07/22/2024 chest x-ray TECHNIQUE: 1 view of the chest submitted for review. FINDINGS: Lines and tubes: Cardiac pacer is present. Lungs are hyperaerated. No acute infiltrate. No effusion. The cardiac silhouette measures within normal. Pulmonary vascularity is unremarkable. Osseous structures are normal for age. XR/XR chest 1V IMPRESSION: No plain film evidence for acute cardiopulmonary disease. Electronically authenticated by: DAQUAN GUNN Date: 09/10/2024 19:11
[2024-09-10 17:49] LABS: PCO2 VBG 49.4 mmHg (40.0-52.0)
[2024-09-10 17:50] LABS: Basophils Absolute Auto 0.1 10^3/uL (0.0-0.1); Basophils Percent Auto 1.4 % (0.2-2.0); Eosinophils Absolute Auto 0.8 10^3/uL (0.0-0.7); Eosinophils Percent Auto 17.7 % (0.9-7.0); Hematocrit 32.4 % (36.0-48.0); Hemoglobin 10.2 g/dL (12.0-16.0); Lymphocytes Absolute Auto 1.7 10^3/uL (1.2-3.8); Lymphocytes Percent Auto 40.2 % (20.5-60.0); Mean Corpuscular HGB Conc 31.5 g/dL (29.9-35.2); Mean Corpuscular Hemoglobin 30.1 pg (26.7-34.0); Mean Corpuscular Volume 95.6 fL (81.0-99.0); Mean Platelet Volume 9.8 fL (9.5-13.5); Monocytes Absolute Auto 0.6 10^3/uL (0.3-0.8); Monocytes Percent Auto 12.8 % (1.7-12.0); Neutrophils Absolute Auto 1.2 10^3/uL (1.4-6.5); Neutrophils Percent Auto 27.9 % (43.0-75.0); Platelet Count 237 10^3/uL (150-450); Red Blood Count 3.39 10^6/uL (4.20-5.40); Red Cell Distribution Width 15.7 % (11.0-15.0); White Blood Count 4.3 10^3/uL (4.0-11.0)
[2024-09-10] MEDS: IPRATROPIUM/ALBUTEROL SULFATE 3 ML AMPUL.NEB IH (17:54)
[2024-09-10] MEDS: METHYLPREDNISOLONE SOD SUCC PF 125 MG/2 ML VIAL IVP (18:02)
[2024-09-10 18:08] LABS: Alanine Aminotransferase 26 U/L (14-59); Albumin Globulin Ratio 1.1; Alkaline Phosphatase 87 U/L (46-116); Anion Gap 7.6; Aspartate Amino Transferase 29 U/L (15-37); BUN Creatinine Ratio 21.6; Bilirubin Total 0.4 mg/dL (0.2-1.0); Calcium 8.3 mg/dL (8.5-10.1); Carbon Dioxide 30.1 mmol/L (21.0-32.0); Chloride 106 mmol/L (98-107); Estimated GFR (African America >60 (>=60 mL/min/1.73m^2); Estimated GFR (Non-African Ame >60 (>=60 mL/min/1.73m^2); Globulin 2.8 g/dL; Glucose 78 mg/dL (74-106); Potassium 4.7 mmol/L (3.5-5.1); Sodium 139 mmol/L (136-145); Total Protein 5.8 g/dL (6.4-8.2)
[2024-09-10 18:17] LABS: Troponin I High Sensitivity 10.2 pg/mL (4.0-51.3)
[2024-09-10 19:32] LABS: Troponin I High Sensitivity 9.1 pg/mL (4.0-51.3)
== END 2024-09-10 20:45 | disposition home or self-care (01) ==
PROVIDERS: Emergency Provider Emergency Medicine Emergency Medical Services; PCP Family Medicine
DX: J44.1 Chronic obstructive pulmonary disease with (acute) exacerbation (principal); R06.02 Shortness of breath; I08.1 Rheumatic disorders of both mitral and tricuspid valves; Z95.0 Presence of cardiac pacemaker; Z90.49 Acquired absence of other specified parts of digestive tract; Z90.710 Acquired absence of both cervix and uterus
CPT/HCPCS: 36415; 71045; 80053; 82800; 83880; 84484; 85025; 93005; 94640; 96374; 99285; J2919